=== PATIENT | female | born 1955 | race Caucasian/White ===

== ENCOUNTER 2017-11-13 13:14 | Inpatient (IN) | payer MEDICARE ==
[2017-11-13] MEDS ORDERED: Naloxone HCl 0.4 mg/ml Vial ONE (13:25)
[2017-11-13 14:45] LABS: #Eosinphils 0.1 thou/uL (0.0-0.7); #Lymphocytes 0.9 thou/uL (1.20-3.40); #Monocytes 0.7 thou/uL (0.11-0.59); #Neutrophils 17.5 thou/uL (1.40-6.50); %Basophils 0.2 % (0.0-1.0); %Eosinophils 0.5 % (0.0-10.0); %Lymphocytes 4.5 % (21.0-51.0); %Monocytes 3.7 % (0.0-10.0); Hematocrit 44.2 % (36.0-47.0); Mean Platelet Volume 7.9 fL (7.4-10.4); Red Blood Cell (RBC) Count 4.66 mill/uL (4.20-5.40); White Blood Cell (WBC) Count 19.2 thou/uL (4.8-10.8)
--- NOTE | 2017-11-13 14:50 | RAD ---
AP VIEW OF THE CHEST: INDICATION: Emergency exam. FINDINGS: The heart size is accentuated by the exam technique, with the patient being supine and an AP projecti on being taken. The lungs are clear. No pleural effusion or pneumothorax evident. No acute osseous abnormality is evident. IMPRESSION: No acute cardiopulmonary abnormality. POS: [facility]
[2017-11-13] MEDS ORDERED: Morphine 4 MG/ML VIAL ONE (14:56)
--- NOTE | 2017-11-13 15:02 | CT ---
CT HEAD WITHOUT CONTRAST: TECHNIQUE: Multiple axial tomograms were obtained through the head without IV enhancement. HISTORY: Mental status change. FINDINGS: Ventricles have normal size and position. No evidence of intracranial hemorrhage, mass, or infarct. Sinuses and mastoids are well aerated. IMPRESSION: No acute process. POS: [facility]
[2017-11-13 15:04] LABS: Lactic Acid - Sepsis 0.8 mmol/L (0.5-2.2)
--- NOTE | 2017-11-13 15:05 | CT ---
CT CERVICAL SPINE: TECHNIQUE: Multiple axial tomograms were obtained through the cervical spine with multiplanar reconstruction. HISTORY: Fall with injury to neck. FINDINGS: Cervical vertebrae maintain normal height and alignment. There are mild degenerative changes in the cervical spine. There is hypertrophic change at the left fact of C5-6. No evidence of acute fracture. IMPRESSION: No acute fracture identified. POS: [facility]
[2017-11-13 15:07] LABS: ALT (SGPT) 11 U/L (8-55); AST (SGOT) 19 U/L (5-34); Alkaline Phosphatase 138 U/L (40-150); Anion Gap 20 mmol/L (10-20); BUN (Urea Nitrogen) 43 mg/dL (9.8-20.1); Bilirubin, Total Less than 0.2 mg/dL (0.2-1.2); Calc. Creatinine Clearance 0 mL/min (70-130); Calcium 9.5 mg/dL (7.8-10.44); Carbon Dioxide 21 mmol/L (23-31); Chloride 103 mmol/L (98-107); Estimated GFR-MDRD 16; Globulin 3.1 g/dL (2.4-3.5); Protein, Total 7.1 g/dL (6.0-8.3)
--- NOTE | 2017-11-13 15:11 | RAD ---
LEFT TIBIA FIBULA: HISTORY: Injury to left tibia fibula. FINDINGS/IMPRESSION: Comminuted displaced fracture is seen involving the distal tibia and fibula diaphysis. POS: [facility]
--- NOTE | 2017-11-13 15:11 | RAD ---
LEFT KNEE: Four views. HISTORY: Fall with injury to left knee. FINDINGS/IMPRESSION: No fracture. No acute abnormality. POS: [facility]
[2017-11-13 15:13] LABS: Bilirubin Negative (Negative); Blood, Urine Trace (Negative); Glucose, Urine (Dipstick) Negative (Negative); Ketone, Urine Negative (Negative); Nitrite Negative (Negative); Protein, Urine (Dipstick) > or equal to 300 mg/dL (Neg-Trace); Urobilinogen 0.2 mg/dL (0.2-1.0)
[2017-11-13 15:18] LABS: Bacteria/HPF None Seen HPF (None Seen); Hyaline Casts/LPF 4-6 HYALINE CAST LPF (0-3 Hyaline); RBC/HPF 0-3 HPF (0-3)
[2017-11-13 15:31] LABS: Renal Epithelial None Seen HPF (0-3); Transitional Epithelial NONE SEEN HPF (0-3)
[2017-11-13] MEDS ORDERED: Labetalol HCl 100 MG/20 ML VIAL ONE (15:35)
[2017-11-13 15:43] LABS: Acetaminophen Less than 6.0 mcg/mL (10.0-30.0); Salicylate Less than 8.0 mg/dL (15.0-30.0)
[2017-11-13 15:45] LABS: Oxyhemoglobin 78.2 % (94.0-97.0); Sodium 140 mmol/L (135-148)
[2017-11-13 15:47] LABS: Mode RA; Modified Allen's Test NOT DONE; Vent NO
[2017-11-13 16:03] LABS: Amphetamine Not Detected (NotDetected); Methadone Not Detected (NotDetected); Methamphetamine Not Detected (NotDetected)
[2017-11-13] MEDS ORDERED: VANCOMYCIN IVPB PRN ×2 (16:56→17:06)
[2017-11-13] MEDS ORDERED: ACYCLOVIR SODIUM IVPB ONE (17:00)
[2017-11-13] MEDS ORDERED: SODIUM CHLORIDE 0.9% IVPB ONE (17:00)
[2017-11-13] MEDS ORDERED: cefTRIAXone\\ROCEPHIN 2 GM in Sodium Chloride 0.9% 100 ML IVPB ONE (17:00)
[2017-11-13 17:07] LABS: Troponin I 0.305 ng/mL (< 0.028)
[2017-11-13] MEDS ORDERED: Midazolam HCl 2 mg/2 ml Vial ONE (18:42)
[2017-11-13] MEDS ORDERED: Dextrose 50% Abboject 50 ML SYRINGE SLOW IVP PRN (18:48)
[2017-11-13] MEDS ORDERED: Dextrose 5% in Water 1,000 ML IV PRN (18:48)
[2017-11-13] MEDS ORDERED: Sedation Protocol FS ONE (18:49)
[2017-11-13] MEDS ORDERED: DISCONTINUE PREVIOUS NARCOTIC PAIN MEDICATIONS AND BENZODIAZEPINES FS SCH (18:52)
[2017-11-13] MEDS ORDERED: Fentanyl 20 MCG/ML 250 ML IVPB SCH (18:52)
--- NOTE | 2017-11-13 19:02 | HP ---
DATE OF ADMISSION: 11/13/2017 CHIEF COMPLAINT: Altered mental status, status post fall and fracture of the lower extremity. HISTORY OF PRESENT ILLNESS: The patient is a 62-year-old female who has been doing quite w ell until today when she was very confused and dazed. Her was not able to communicate with h er and he tried to help her to go to the bathroom because she was weak and she fell, her legs buckled and she fractured her tibia and fibula, so the EMS was called and she was brought to the emergency r o for further evaluation. At the time of evaluation, she was able to say her name and the age, but otherwise she was not really able to communicate more with the emergency room physician. She did no t have any fever at home as far as he knows and she did not have any chills as far as we know. She i s a kidney transplant patient. Her blood pressure in the emergency room was elevated at 229/96 and s he received labetalol 10 mg and it dropped to 139/76. 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 Julio and she goes to [facility] in [place]. Her previous creatinine level was around 1 and today is 3.0. PAST MEDICAL HISTORY: Positive for: 1. Previous end-stage renal disease. 2. Hypertension. 3. Hyperlipidemia. 4. Status post renal transplantation in 2005, on immunosuppressive therapy. 5. Coronary artery disease. PAST SURGICAL HISTORY: 1. Renal transplant in 2005. 2. Cholecystectomy. 3. Hysterectomy. ALLERGIES: LATEX and PHENERGAN. CURRENT MEDICATIONS: The list will be obtained as soon as we can from her . FAMILY HISTORY: Positive for heart disease. Father had Alzheimer's dementia. SOCIAL HISTORY: She smokes 1 pack of cigarettes per day. She does not use any alcohol or illicit dr ugs. REVIEW OF SYSTEMS: Unobtainable at this point since her condition is affected, but altered mental st atus. PHYSICAL EXAMINATION: GENERAL: She wears the BiPAP mask as we speak. Her pupils are normal size, approximately 3 mm, resp onding to light, similar bilaterally. She is very comatose, but she is arousable. When she is asked , she follows my simple commands. She is able to move her upper extremities and the right lower extr emity. She had the cast placed on the left lower extremity for her fractured tibia and fibula. NEUROLOGICAL: She is not able to stay awake. She falls asleep very quickly. LUNGS: Clear. HEART: S1, S2 normal. No S3, no S4. ABDOMEN: Soft, nondistended. Bowel sounds are present. EXTREMITIES: No clubbing, cyanosis. Edema present. As I mentioned above, there is a left lower ext remity cast in place. LABORATORY: Showed a white count of 19.2, hemoglobin 13.6, hematocrit 44.2, platelet count is 275,00 0, neutrophils 91%. ABGs showed pH of 7.18, pCO2 of 65.8, pO2 of 52.1, base excess is -5.0, carboxyh emoglobin 5.4. LABORATORY AND X-RAY FINDINGS: Sodium of 138, potassium 5.6, chloride 103, CO2 of 21, BUN 43, creati nine 3.02. The rest of chemistry within normal limits. Urine showed more than 300 of protein, trace of blood and 11-20 WBCs, hyaline casts 4-6. Toxicology screen detected benzodiazepines, detected op iates. The rest is negative. Alcohol less than 10. X-rays were done on cervical spine which did no t show any fracture on the left knee, no fracture, but left tibia and fibula and distal fracture. Th e CT of the brain was done did not show any acute abnormalities and chest x-ray was also done and it did not show any acute abnormalities. IMPRESSION: 1. Altered mental status in the setting of an immunocompromised patient. Rule out OR MANAGER infection wit h opportunistic pathogens like Cryptococcus and herpes simplex. The patient is going to have an LP d one and will check for those 2 opportunistic pathogens. We will do CSF culture and all the routine t esting. Also, we will start the patient on vancomycin, Rocephin, and acyclovir. 2. Renal failure on the top of chronic, not clear whether this is prerenal. Dr. Julio was contacted. He wants to use normal saline at 100 mL per hour and obtain ultrasound of the transplanted kidney. 3. Hyperkalemia. Again rail gang supervisor does not want to use any agents to lower potassium. He wants t o just use IV fluids. The patient received 1 liter of normal saline at the emergency room and she is going to get 100 mL per hour of normal saline after that. 4. Metabolic and respiratory acidosis, metabolic is caused most likely secondary to her renal failur e and respiratory acidosis is caused by probably CO2 retention since her ABG showed pCO2 at 65, that is secondary to chronic obstructive pulmonary disease. The patient is on BiPAP at this point. [facility] senior care provider was contacted, Dr. Caceres who is going to evaluate the patient and give us his lew mmendations. For now, her home medications are on hold and tomorrow we will start her on most crucia l ones for her immunocompromised status. For now we will keep her on hydrocortisone IV since she was taking prednisone at home. The patient is admitted to an ICU by Trauma team. This is supposed to b e a consultation and not admitting H and P. The patient will be on deep venous thrombosis prophylaxi s and peptic ulcer disease prophylaxis. Blood cultures and urine cultures were done. The case was d iscussed with Dr. Ritter for Infectious Diseases evaluation and he will give us his recommendation.
--- NOTE | 2017-11-13 19:31 | RAD ---
RADIOGRAPH CHEST 1 VIEW: Supine Date: 11/13/17 Time: 6:58 p.m. HISTORY: 62-year-old female status post intubation. FINDINGS: There is no air space density or pulmonary edema. The lateral costophrenic angles are sharp. Supine positioning makes this study insensitive for pneumothorax detection. Endotracheal tube distal tip ove rlies the mid thoracic trachea. NG tube courses inferior to the diaphragm, with distal tip and side p ort below and outside of the field of view. IMPRESSION: 1. No acute pulmonary findings. 2. Endotracheal tube placement. 3. Nasogastric tube placement. jeyson [] POS: [facility]
[2017-11-13 19:42] LABS: Oxyhemoglobin 95.9 % (94.0-97.0); Sodium 137 mmol/L (135-148)
[2017-11-13 19:44] LABS: Mechanical Tidal Volume 550 ml; Mode SIMV; Pressure Support 10 cmH2O; Vent YES
[2017-11-13 20:07] LABS: Troponin I 0.244 ng/mL (< 0.028)
[2017-11-13] MEDS: Sodium Chloride 0.9% 1,000 ML IV SCH (20:25)
--- NOTE | 2017-11-13 20:33 | CON ---
DATE OF CONSULTATION: 11/13/2017 CONSULTING PHYSICIAN: Yayo Abbasi M.D., Emergency Room. CHIEF COMPLAINT: Left lower extremity pain. HISTORY OF PRESENT ILLNESS: Ms. Park is a 62-year-old female who was brought in by EMS after a f all being transferred by her . Her states she has not been herself last couple of day s. The patient is currently in bed without any family members. She is somnolent, but arousable with sternal rub, not responding to any questions, only able to answer her name and that she lives in [facility], unable to get any other information. Rest of the history is from the chart review. PAST MEDICAL HISTORY: Includes: 1. Previous end-stage renal disease with history of renal transplant. 2. Hypertension. 3. Hyperlipidemia. 4. Coronary artery disease. PAST SURGICAL HISTORY: Includes cardiac catheterization, renal transplant, cholecystectomy, hysterec juan m, TIA, hypertension, restless leg syndrome, gastroesophageal reflux, COPD stable, history of panc reatitis, anemia. PAST SURGICAL HISTORY: Cardiac catheterization, renal transplant, cholecystectomy, hysterectomy. ALLERGIES: Per chart, ROMULO. MEDICATIONS: Please see administration list for details. SOCIAL HISTORY: Positive vapor cigarettes. No alcohol or drug use according to this previous chart review. REVIEW OF SYSTEMS: Unable to assess. PHYSICAL EXAMINATION: VITAL SIGNS: She is 89, respiratory rate 18, 97 degrees, 98% on 3 liters nasal cannula. GENERAL: Alert and oriented female x1. Arousable to sternal rub. The patient has some fasciculatio ns. EXTREMITIES: Bilateral lower extremities as well as bilateral upper extremities, unable to assess. She is currently in a seizure mode. Left lower extremity shows soft compartments. Splint is intact. No obvious open skin wounds are noted. The patient has 1+ DP and PT pulses. The patient has gross fasciculations. She has a negative Babinski's. LABORATORY AND X-RAY FINDINGS: White count of 19, H&H 13 and 44. She has platelets of 275. The pat ient's potassium is 5.6, creatinine of 3.02. Radiographs show left tibia shaft fracture, distal third with a comminuted distal fibula fracture wit h ankle mortise apparently intact. IMPRESSION: 1. Left distal tibia, left distal fibula fracture, comminuted, osteopenia. 2. End-stage renal disease, history of kidney transplant. 3. Coronary artery disease. 4. History of smoking in the past. 5. Chronic obstructive pulmonary disease. 6. Previous history of chronic anemia. 7. Previous history of pancreatitis. ASSESSMENT AND PLAN: The patient will need medical management and evaluation. The patient will maximino in n.p.o. after midnight. Plan would be for a tibia nail tomorrow after medical conditions are stabi lized. We plan to splint her and treat her likely on Wednesday. Trauma would admit, and await medical clearance for proceeding.
--- NOTE | 2017-11-13 21:04 | ULT ---
ULTRASOUND RETROPERITONEUM COMPLETE: (RENAL) DOPPLER/DUPLEX 11/13/17 HISTORY: 62-year-old female with renal failure. TECHNIQUE: Mosley scale, color flow, and spectral analysis. FINDINGS: No kidney is identified in the right upper quadrant. In the left upper quadrant, there is a small, il l-defined, faint 5 x 2.5 x 2.5 cm structure, which may or may not represent a severely atrophic or hy poplastic [place] left kidney. If it is the [place] left kidney, then its parenchyma is very abnormally thin. There is no hydronephrosis of this. In the pelvis, there is a transplanted kidney that measures approximately 12.5 x 6.5 x 5.5 cm. Its pa renchymal echogenicity is diffusely abnormally mildly increased. There is no dilation of the renal pe lvis. There are several teardrop shaped small hypoechoic structures which may represent mildly dilate d calyces or small cysts. The highest peak systolic velocity, and end diastolic velocity, in the left renal artery are 275 cm/s, and 20 cm/s, respectively. The resistive index in the transplanted right kidney is 0.93, very elevated. Furthermore, there is no diastolic flow in some of the pulsed doppler waveforms at the hilum of the kidney (high resistance waveform). IMPRESSION: Evidence for failure of the transplanted kidney. FATOU Green POS: [facility]
[2017-11-13] MEDS: Hydrocortisone Sod Succ/PF 100 mg/2 ml Vial IVP SCH (21:21)
[2017-11-13] MEDS: Lorazepam 2 MG/ML VIAL SLOW IVP PRN (21:50)
[2017-11-13 22:53] LABS: Troponin I 0.243 ng/mL (< 0.028)
[2017-11-14] MEDS: Propofol 1,000 MG/100 ML VIAL IV PRN ×4 (00:12→22:10)
[2017-11-14] MEDS ORDERED: Acetaminophen 650 MG/20.3 ML UDCUP PER TUBE PRN (00:49)
[2017-11-14] MEDS: Hydrocortisone Sod Succ/PF 100 mg/2 ml Vial IVP SCH ×5 (01:22→17:44)
[2017-11-14 04:20] LABS: Anion Gap 16 mmol/L (10-20); BUN (Urea Nitrogen) 44 mg/dL (9.8-20.1); Calc. Creatinine Clearance 26 mL/min (70-130); Calcium 8.5 mg/dL (7.8-10.44); Carbon Dioxide 17 mmol/L (23-31); Chloride 109 mmol/L (98-107); Estimated GFR-MDRD 17
[2017-11-14 05:12] LABS: #Lymphocytes 0.6 thou/uL (1.20-3.40); #Monocytes 0.9 thou/uL (0.11-0.59); #Neutrophils 13.6 thou/uL (1.40-6.50); %Eosinophils 0.2 % (0.0-10.0); %Lymphocytes 3.9 % (21.0-51.0); %Monocytes 5.9 % (0.0-10.0); Hematocrit 33.9 % (36.0-47.0); Mean Platelet Volume 8.5 fL (7.4-10.4); Red Blood Cell (RBC) Count 3.63 mill/uL (4.20-5.40); White Blood Cell (WBC) Count 15.1 thou/uL (4.8-10.8)
[2017-11-14] MEDS: Sodium Chloride 0.9% 1,000 ML IV SCH ×2 (05:25→14:24)
--- NOTE | 2017-11-14 06:47 | HP ---
DATE OF ADMISSION: 11/13/2017 ADMITTING PHYSICIAN: Dr. Omar Beltre. CONSULTING PHYSICIAN: Dr. Ritter, Infectious Disease; Dr. Julio, renal; Dr. Broderick, Sound; Dr. Karmen harrington, Pulmonology; Dr. Knutson, Orthopedics; Dr. Dunaway, Cardiology. PAST MEDICAL HISTORY: 1. Review of end-stage renal disease, status post kidney transplant. 2. Hypertension. 3. Hyperlipidemia. 4. Coronary artery disease. PAST SURGICAL HISTORY: 1. Cardiac catheterization. 2. Renal transplant. 3. Cholecystectomy. 4. Hysterectomy. SOCIAL HISTORY: Lives at home with . Tobaccos use 1 pack per day cigarettes. Denies alcohol use, denies drug use. ALLERGIES: LATEX, NATURAL RUBBER, and PROMETHAZINE. CURRENT MEDICATIONS: 1. Sodium bicarbonate 325 mg 4 tabs oral twice daily. 2. Alprazolam 1 mg oral 3 times daily as needed. 3. Fluoxetine 40 mg 1 tab oral once a day. 4. Gemfibrozil 600 mg oral 1 tab once a day. 5. Simvastatin 40 mg 1 tab oral once a day. 6. Gabapentin 600 mg 1 tab oral 3 times a day. 7. Prednisone 5 mg oral 1-1/2 tabs once a day. 8. Mycophenolate mofetil 500 mg 1 tab oral twice daily. 9. Bupropion 150 mg oral once a day. 10. Hydralazine 25 mg oral 1 tab 3 times a day as needed. 11. Acetaminophen 1000 mg oral q.6 hours as needed. 12. Amlodipine 5 mg oral at bedtime. 13. Aspirin 81 mg p.o. daily. 14. Diphenhydramine 25 mg p.o. q.4 hours as needed. 15. Folic acid 1 mg p.o. daily. 16. Ritalin 10 mg p.o. daily. 17. Metoclopramide 10 mg p.o. at bedtime as needed. 18. Pantoprazole 40 mg p.o. daily. 19. Paroxetine 20 mg p.o. daily. 20. Simvastatin 40 mg p.o. at bedtime. 21. Sodium bicarbonate 600 mg p.o. twice daily. 22. Prograf 1.5 mg/3 mg. 23. Tramadol 100 mg IV p.r.n. 24. Trazodone 100 mg p.o. at bedtime. HISTORY OF PRESENT ILLNESS: A 62-year-old female who presented to the ER via EMS today after a groun d level fall. reports that patient had altered mental status starting this morning and he wa s assisting her to the bathroom when she was having trouble walking down the bishop and her knees buckl ed. At that time, she fell to the ground. He heard a pop. He lowered her to the ground. She did n ot strike her head or have LOC. She had left leg deformity per EMS and it was splinted on scene. Chrystal pritchard arrived to the ED, A&O x2. It is unknown what medications she has taken today. Mental status cont inued to decline in the ED. She required BiPAP secondary to worsening respiratory status and respira tory acidosis. Kiser cultures were done as well as LP. She was given 0.4 mg of Narcan. She was hyper tensive to 221/96 requiring administration of IV labetalol, which brought her blood pressure down to 136/76. Left tib/fib fracture was identified and left lower extremity was placed in splint. Trauma was consulted for admission. Please see the above for complete list of consulting physicians. LABORATORY DATA: CBC: WBC 19.2, hemoglobin 13.6, hematocrit 44.2, platelet 275. Chemistry: Sodium 138, potassium 5.6, chloride 103, CO2 of 21, BUN 43, creatinine 3.02, glucose 97, troponin 0.305. A BG: pH 7.18, pCO2 65.8, pO2 of 52.1, bicarbonate 24.2, base excess negative 5.0. DIAGNOSTIC IMAGIN. Brain CT, no acute process. 2. Cervical spine CT, no acute fracture identified. 3. Chest x-ray, no acute cardiopulmonary abnormality. 4. Left tibia fibula x-ray, comminuted left tibia fibula fracture. PHYSICAL EXAMINATION: VITAL SIGNS: Blood pressure 182/93, pulse 74, respirations 18, temperature 97.7, O2 sat 100% on BiPA P. CONSTITUTIONAL: A 62-year-old female requiring BiPAP due to respiratory insufficiency. Altered ment al status. HEENT: Atraumatic, normocephalic. Trachea midline. NECK: No JVD. RESPIRATORY: Coarse breath sounds. Bilateral lung keene. Patient is requiring BiPAP to maintain a dequate oxygen saturation. CARDIOVASCULAR: Regular rate and rhythm. Heart sounds normal. ABDOMEN: Soft, nontender, nondistended. No masses. EXTREMITIES: Left lower extremity with splint in place. Cap refill brisk in all extremities. NEUROLOGIC: GCS 12, eyes 2, verbal 4, motor 6, states name only. Unable to answer any other questio ns. ASSESSMENT AND PLAN: 1. Respiratory failure requiring BiPAP. 2. Respiratory acidosis. 3. Left comminuted tib/fib fracture. 4. Hyperkalemia. 5. Elevated creatinine 3.02. 6. Elevated troponin 0.3. PLAN: 1. Admit to ICU. 2. Repeat cardiac enzymes x3. 3. 2D echocardiogram. 4. IV antibiotics for renal dosing. 5. Appreciate consulting services and recommendations. History and exam, assessment and plan were reviewed with Dr. Beltre.
--- NOTE | 2017-11-14 06:50 | CON ---
DATE OF CONSULTATION: 11/13/2017 HISTORY OF PRESENT ILLNESS: A 62-year-old obese female. History is obtained from talking to , who is here at the bedside, at length. She has been in the ER now for almost 4-5 hours. states that about 48 hours, she has been acting encephalopathic. This morning, she called her to help her go to the bathroom, but apparently she buckled down and fell and broke her right ankle. He called 911 and brought to the hospital. In the ER, I got a c all from trauma PA stating that she is going to be admitted to the ICU for multiple medical problems. She is clearly encephalopathic in the ER and told ER physician try to do lumbar puncture x2 unsuccess ful. Blood gases were done, which showed severe hypoxemia and mixed metabolic respiratory acidosis. According to the , patient smokes a pack a day and she had some febrile illness for the last 2 4 hours, but no chills or sweats. She says she has had a chronic cough, but no production of sputum. She has limitation to activity. PAST MEDICAL HISTORY: Pertinent for previous TIA-like symptoms. She was hospitalized in 11/2006, hi story of multiple urinary tract infections, restless leg syndrome, migraine, hypertension, reflux, ga stroparesis, previous [place], COPD, pancreatitis, colon polyps. PAST SURGICAL HISTORY: As well outlined and has included access renal transplant, ERCP, colonoscopy, hysterectomy, transplant at [facility] several years ago. SOCIAL HISTORY: She has apparently tobacco abuse. MEDICATIONS: List of medicines from home includes trazodone 100, tramadol, prednisone, Benadryl, Pro bren 3 capsule in the morning, 2.5 in the night time, bicarbonate, Zocor, Protonix, Paxil, and CellCe pt 500, Reglan, Ritalin, Lopid, Norvasc 5, Xanax. ALLERGIES: LATEX. PHYSICAL EXAMINATION: Upon arrival to the ICU, she was doing some nonspecific jerky movements bilate rally. She is clearly encephalopathic, it was felt she needed to be intubated right away. Bite bloc k was placed inside the endotracheal tube placed over the bronchoscope and intubated without any prob lems. Tube is about 4 cm above the everette. Both lungs were lavaged with normal saline. Initial vis ualization of the lungs are very clear, frothy secretions of post-intubation, there were some bloody secretions, but right upper and right middle lobe visualized without any endobronchial obstruction or any fresh bleeding was seen. The left lung was inspected thereafter once again, no fresh bleeding was seen. This area was lavaged with normal saline. Bronchial washing was sent for Gram stain and C&S. She was connected to warm c ycle respirator. PHYSICAL EXAMINATION: VITAL SIGNS: Sats 100%, pulse 80, blood pressure 153/80. CHEST: Reveals bilateral rhonchi. CARDIAC: Sinus tachycardia. ABDOMEN: Soft, without any masses. LABORATORY DATA: Initial chest x-ray was normal. X-ray post-intubation shows no acute infiltrates. White count 19,000, H&H 13 and 44, platelet count is 275. A pO2 was 52, pCO2 was 65, pH 7.18 in the ER apparently on room air. She was briefly on BiPAP. Creatinine 3, BUN 43. Sodium 130. Troponin was elevated at 0.3. TSH is normal. Urine shows wbc 11-20, opiates, benzos in the urine. Emergency CT of the head showed no acute process. Chest x-ray was normal. X-ray of the tibia and fi bula shows comminuted fracture involving the distal tibia and fibula. IMPRESSION: 1. Encephalopathy. 2. Presumed febrile illness. 3. Renal failure. 4. Immuno-compromised. 5. Respiratory failure with tobacco abuse. PLAN: Neurology has been consulted. In the meantime, she was started on steroids, acyclovir, vancom ycin. Started neb treatments. Resume home immunosuppressive medication. We will follow. Wean when stable. Prognosis remains guarded. Discussed with the . Please n ote it is one-hour critical care time exclusively intubation and bronchoscopy with lavage.
[2017-11-14 07:12] LABS: Oxyhemoglobin 96.1 % (94.0-97.0); Sodium 139 mmol/L (135-148)
[2017-11-14 07:15] LABS: Mechanical Tidal Volume 500 ml; Mode SIMV/PSV; Modified Allen's Test NOT DONE; Pressure Support 10 cmH2O; Vent YES
--- NOTE | 2017-11-14 08:58 | RAD ---
PORTABLE CHEST: HISTORY: Dyspnea. CCU followup. On ventilator. COMPARISON: 11/13/17. FINDINGS/IMPRESSION: ET tube, NG tube again noted. Lung keene remain clear. No acute finding or interval change noted. POS: [facility]
[2017-11-14] MEDS ORDERED: FLU VACC QS2017-18 36 mo. & older 0.5 ML SYRINGE IM ONE (09:00)
[2017-11-14] MEDS: Pantoprazole 40 MG VIAL IVP SCH (09:10)
[2017-11-14] MEDS: Mycophenolate 250 MG CAP PO SCH ×2 (11:17→20:05)
[2017-11-14] MEDS: Tacrolimus 1 MG CAP PO SCH ×2 (11:17→20:06)
--- NOTE | 2017-11-14 11:50 | RAD ---
PORTABLE CHEST: HISTORY: Central line placement. FINDINGS: ET tube is in place. A central line has been placed via the left jugular and tip overlies the SVC. NG tube is noted. Lungs remain clear of confluent infiltrate. IMPRESSION: Central line placement appears adequately positioned. POS: [facility]
--- NOTE | 2017-11-14 14:47 | OP ---
DATE OF PROCEDURE: 11/14/2017 PREOPERATIVE DIAGNOSES: Respiratory failure, sepsis, renal transplant status, poor IV access, tibial /fibular fracture. POSTOPERATIVE DIAGNOSES: Respiratory failure, sepsis, renal transplant status, poor IV access, tibia l/fibular fracture with occluded right internal jugular vein not visualized on ultrasound. PROCEDURE: Left internal jugular vein triple-lumen catheter. SURGEON: Dr. Beltre ANESTHESIA: Diprivan, on the ventilator, and 1% Xylocaine. PROCEDURE: At the patient's bedside, right and left sides of her neck were prepared with ChloraPrep, draped in routine fashion. Patient has had multiple hemodialysis catheters on both sides. Ultrasou nd evaluation of right internal jugular vein revealed it not to be present. Ultrasound evaluation of left internal jugular vein identified it and trocar catheter cannulated and J-wire threaded. Trocar catheter removed. Skin incised and enlarged sharply. Seldinger technique used to place triple-lume n catheter and secured with 3-0 silk suture and Biopatch applied. J-wire removed. Each port aspirat ed blood and flushed with saline solution. Patient tolerated the procedure well.
--- NOTE | 2017-11-14 14:54 | CON ---
DATE OF CONSULTATION: 11/14/2017 RENAL MEDICINE HISTORY OF PRESENT ILLNESS: Ms. Park is a 62-year-old white female with known history of renal t ransplantation, and admitted for confusion and resultant fall. She was diagnosed to have an injury o n the left tibia fibula -- she had a comminuted displaced fracture involving the distal tibia and fib kamaljit. We are being consulted for her acute kidney injury. The feeling is that the acute kidney injur y may have been related to her underlying prerenal azotemia. Empiric volume repletion with normal sa line has been started. Creatinine is down, it is slightly improved from 3.0 to a most recent value o f 2.75. We are currently continuing her immunosuppressive regimen. REVIEW OF SYSTEMS: Not obtainable since the patient is sedated, intubated and on ventilator support. MEDICATIONS: Tylenol 650 mg q.4, acyclovir 580 mg IV daily, ceftriaxone 2 grams IV daily, fentanyl d rip, hydrocortisone 25 mg IV q.6, Ativan 2 mg IV p.r.n., Mycophenolate 500 mg p.o. b.i.d., morphine s ulfate 2 mg IV q.2 p.r.n., Protonix 40 mg IV daily, normal saline 100 mL per hour, tacrolimus 3 mg p. o. q.a.m. and 1.5 mg at bedtime, vancomycin as directed. PAST MEDICAL HISTORY: Includes the followin. Status post ESRD. 2. Status post pancreatitis. 3. Restless legs syndrome. 4. Status post UTI. 5. Hyperlipidemia. 6. Migraine. 7. Hypertension. 8. GERD. 9. History of gastroparesis. 10. Status post non-Q-wave UT. 11. History of dysplastic colon polyps. 12. COPD. PAST SURGICAL HISTORY: 1. Status post AV fistula placement. 2. Status post cardiac cath. 3. Status post cuffed hemodialysis catheter placement. 4. Status post PD catheter placement. 5. Status post vaginal hysterectomy. 6. Status post surgery of the right kidney. 7. Status post colonoscopy. 8. Status post ERCP. 9. Status post cadaveric renal transplant at [facility]. 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 Status post multiple blood transfusions. No alcohol intake. FAMILY HISTORY: No family history of ESRD. ALLERGIES: LATEX and adverse reaction to PHENERGAN. TRAUMA: Recently status post fall with left tibia and fibula comminuted fracture. IMMUNIZATIONS: Up to date. HOSPITALIZATIONS: Please see past medical history. PHYSICAL EXAMINATION: VITAL SIGNS: Blood pressure is 147/60, heart rate 88, respiratory rate 20, temperature is 100, pulse ox 100%. GENERAL: Intubated, on ventilator support. HEENT: Pinkish conjunctivae, anicteric sclerae. NECK: No neck mass, no carotid bruits, no JVD. CHEST: No deformities. LUNGS: Decreased breath sounds. HEART: Normal sinus rhythm. No murmur, no gallops, no rubs. ABDOMEN: Globular, soft, nontender, no masses. EXTREMITIES: No edema. No deformities. NEUROLOGIC: The patient is sedated and intubated. LABORATORY DATA: Laboratories of 11/13/2017, urinalysis showed protein greater than 300, specific gr avity is 1.026, RBC 0-3, WBC 11-20. Positive for hyaline casts. Sodium 137, chloride 109, potassium 4.5, carbon dioxide 17, BUN 44, creatinine 2.75. GFR is 17 mL pe r minute, glucose 111. Further review of her serum creatinine shows the following, 11/13/2017, 3.02. ASSESSMENT AND PLAN: 1. Acute kidney injury -- most likely a superimposed prerenal azotemia. Urinalysis suggested a very concentrated urine. For this reason, I agree with normal saline 100 mL per hour. Please note, ther e is already an improvement in renal function with gentle volume repletion. 2. Status post cadaveric renal transplant. I would probably continue the current immunosuppression with this patient. No changes to be made. 3. Status post left tibia fibular fracture -- supportive care. 4. Mental status change -- concern whether she may have underlying sepsis or even UNIFORM ROOM ATTENDANT infection. Sh e is empirically being treated with IV acyclovir and IV antibiotics. For the moment, I agree with current management. There is no indication for any dialytic interventio n.
[2017-11-14 16:28] LABS: Vancomycin, Random 11.6 ug/mL (See Comment)
--- NOTE | 2017-11-14 16:31 | PRG ---
DATE OF SERVICE: 11/14/2017 SUBJECTIVE: She is intubated on the vent, sedated. Still pretty much encephalopathic, on Diprivan. She is having some jerking movements. OBJECTIVE: VITAL SIGNS: Blood pressure 163/76, sats are 97%, respirations 18. Maximum temperature has been 100 .5. CHEST: Decreased breath sounds, no wheezing. CARDIAC: Normal S1, S2. ABDOMEN: Soft. LABORATORY DATA: White count 15,000, H&H 10 and 33, platelet count 231, pO2 is 86, pCO2 25, pH 7.46, on a rate of 20, 500 tidal volume, and creatinine is 2.7. IMPRESSION: 1. Renal transplant, immunocompromised. 2. Fractured left femur. 3. Respiratory failure. 4. Encephalopathy. 5. Febrile illness. PLAN: Ceftriaxone and vancomycin as ordered per Infectious Disease, along with acyclovir. No spinal fluid was obtained. Need to restart patient's home medication. She is not weanable. Await input from Neurology. One-half hour critical care time.
--- NOTE | 2017-11-14 16:47 | PRG ---
DATE OF SERVICE: 11/14/2017 SUBJECTIVE: Norma Park is seen today from the Trauma Services. She is scheduled for ORIF of her tib-fib fracture today. Patient's problems are mostly medical. She remains in respiratory failu re and has had a spinal performed in the emergency room and has acute exacerbation of her chronic kid arturo disease, status post prior peritoneal dialysis, now status post renal transplant and has a right arm AC IV. OBJECTIVE: LUNGS: Clear to auscultation. CARDIAC: Regular rate and rhythm. ABDOMEN: Soft. EXTREMITIES: Splint to tib/fib fracture. CONSULTING PHYSICIANS: 1. Dr. Ritter, Infectious Disease. 2. Dr. Julio, Nephrology. 3. [facility] Hospitalist. 4. Dr. Caceres, Pulmonary Critical Care. 5. Dr. Knutson, Orthopedics. 6. Dr. Dunaway, Cardiology. PLAN: At this time, would be to avoid subclavian lines and antecubital IVs and remove antecubital IV . She is at risk for future dialysis access. We would preserve these veins for future fistulas and in this interest, we would avoid mid IV access, avoid PICC lines. If she needs long-term IV access, she should have a cuffed tunneled Nunes catheter and her IJ. At this point, we will place an IJ ce ntral line in her bedside to facilitate IV access this hospitalization. Trauma Services will then si gn off and I have talked to Dr. Broderick, [facility] Hospitalist and Hospitalist Service will soon lead physician care.
[2017-11-14] MEDS ORDERED: cefTRIAXone\\ROCEPHIN 2 GM in Sodium Chloride 0.9% 100 ML IVPB SCH (17:00)
--- NOTE | 2017-11-14 17:25 | CON ---
DATE OF CONSULTATION: 11/14/2017 REASON FOR CONSULTATION: Altered mental status, renal transplant. HISTORY OF PRESENT ILLNESS: A 62-year-old with history of coronary artery disease and end-stage kp l disease with prior renal transplant in 2005, living donor, was well until the day before admission, and on the day of admission, she felt unwell, a little bit confusional state noticed by , and then she went to the bathroom and fell. EMS was activated and brought to the emergency room. On ar rival, there was evidence of left tibia-fibula fracture which was comminuted. Had been no reported c hills. No fever. No headaches. No seizure activity. No respiratory symptoms or abdominal pain. I nitial findings in the emergency room, BP 229/96. She was on a BiPAP mask. She was arousable and fo llowed some simple commands. There was evidence of left tibia-fibula fracture which was externally f ixed with a splint. Initial labs with a white cell count 19,000, hemoglobin 13, platelets 275, predo minance of mature neutrophils. Blood gas; pH 7.18, pCO2 of 65, and pO2 of 52. Sodium 138, creatinin e is up to 3.02. Urinalysis with 11-20 wbc's. Toxicology with benzodiazepines and some opiates as w ell. Alcohol test was negative. CT of brain with no abnormalities. Chest x-ray with no abnormaliti es. The patient had CSF which showed 3 WBCs and 127 RBCs. This was tube #4. Protein and glucose ar e pending. Patient has been started on broad spectrum coverage with Rocephin, vancomycin, and acyclo vir. Cryptococcus antigen in CSF was negative. Currently, Ms. Park is intubated in the ICU. She woke up when I called her name and she establis hed eye contact and obviously able to understand the spoken word, follow commands perfectly, recogniz ed sister in the room with her. Denied any headaches. No chest symptoms. No abdominal pain. PAST MEDICAL HISTORY: End-stage renal disease of uncertain etiology, hypertension, coronary artery d isease, renal transplantation in 2005, living donor, on immunosuppressive therapy. PAST SURGICAL HISTORY: Also includes cholecystectomy, hysterectomy. ALLERGIES: LATEX and PHENERGAN. CURRENT MEDICATIONS: Acyclovir, albuterol, ceftriaxone, fentanyl, hydrocortisone, lorazepam, methylp henidate, pantoprazole, propofol, tacrolimus, and vancomycin. FAMILY HISTORY: Alzheimer's and coronary disease. SOCIAL HISTORY: Current smoker[place] In the home, she takes narcoti c analgesia and benzodiazepines. PHYSICAL EXAMINATION: VITAL SIGNS: T-max 101.7 on 11/14/2017 and she is now 99. BP 133/90, pulse 92, respirations 22, O2 saturation 100% with FiO2 of 40, PEEP of 5. SKIN: The patient has a triple lumen catheter in the left IJ location. Pinzon catheter in place and orogastric and orotracheal tube. Skin examination otherwise not remarkable. No lymphadenopathy. HEENT: Ocular movements are conjugate. Sclerae white. Pupils are equal. Still quite a few teeth i n place with significant decay. NECK: Supple. LUNGS: Symmetric clear breath sounds. HEART: S1 ad S2 regular rate. No murmurs. ABDOMEN: Soft. Not distended or tender. No ascites. No bladder distention or organomegaly. EXTREMITIES: No evidence of joint inflammatory activity. Pulses are 1+ in dorsalis pedis. Moves al l extremities on command. Plantar responses were flexor. No clonus. NEUROLOGIC: She is awake, follows commands, establishes eye contact. LABORATORY DATA: Sodium 137, creatinine down to 2.75, potassium 4.5. White cell count down to 15,00 0, hemoglobin 10.5, platelets 231, 89% neutrophils. The other findings in the CSF as noted above. T he two sets of blood cultures are negative thus far. Influenza A and B negative. Chest x-ray, clear lung keene noted. Brain CT with no acute process and a fracture noted in the left leg. Cervical s pine CT with no acute fracture. ASSESSMENT: 1. Renal transplant a few years ago, on immunosuppressive medication. 2. Prior end-stage renal disease of uncertain etiology. 3. Coronary artery disease. 4. Still actively smoking. 5. Chronic use of benzodiazepines and opioids. 6. Altered mental status with fall and fracture of left leg. 7. Neutrophilia. DISCUSSION: Differential diagnosis includes sedation/altered mental status associated with benzodiaz epines and opioid use in the home setting versus an intervening or intercurrent infectious process as sociated with immunosuppression with or without bacteremia. It does not appear that she has evidence to suggest central nervous system infection at this point in time and herpes simplex encephalitis is not likely. Bacterial meningitis has been effectively ruled out. Change Rocephin to 2 grams once d aily. Discontinue acyclovir. Follow up results of blood culture. Eventual extubation and then disc ussion with patient regarding the moment immediately to the development of the changes that led to he r admission. Fat embolism from the fracture is not likely. [facility] to the other labs submitted.
[2017-11-14] MEDS: cefTRIAXone\\ROCEPHIN 2 GM in Sodium Chloride 0.9% 100 ML IVPB SCH (17:43)
[2017-11-14] MEDS ORDERED: SODIUM CHLORIDE 0.9% IVPB SCH (18:00)
[2017-11-14] MEDS ORDERED: ACYCLOVIR SODIUM IVPB SCH (18:00)
--- NOTE | 2017-11-14 18:48 | PRG ---
DATE OF SERVICE: 11/14/2017 SUBJECTIVE: The patient is seen and examined at the bedside. She is in ICU bed 5. She is sedated a nd intubated. The patient was intubated last night after she was transferred from the emergency room . Her mental condition, she was becoming more comatose and decision was made about intubation. OBJECTIVE: VITAL SIGNS: Blood pressure is 163/76, pulse is 91, and pulse oximetry is 100%, respiratory rate is 20. She is on SIMV with tidal volume of 500, FIO2 40%, PEEP of 5 and pressure support of 10. Her te mperature was up to 101.7. LUNGS: She has some diminished breath sounds at both bases. No wheezing. No rales, no crackles. ABDOMEN: Nondistended. Bowel sounds are present. HEART: S1, S2 normal, no S3, no S4. EXTREMITIES: No clubbing, cyanosis or edema. NEUROLOGIC: Postponed since she is sedated. LABORATORY DATA: Showed a white count of 15.1, hemoglobin of 10.5, hematocrit 33.9, platelet count i s 231,000, 89.9% of neutrophils. ABG showed pH of 7.46, pCO2 25.7, pO2 86 and a base excess is -4.5, sodium 137, potassium 4.5, chloride 109, CO2 17, BUN 44, creatinine 2.75. Her additional 2 troponin s since yesterday came back at 0.244 and 0.243 and CK-MB was 5.9 and 5.7 respectively. Her thyroxine was 2.0. Her CSF showed colorless fluid. Clarity clear. WBCs less than 3, RBCs , and urine d rug screen was positive for opioids and benzodiazepines. Plasma alcohol was less than 10. Microbiol ogy, spinal fluid is negative for cryptococcal antigen. Spinal fluid culture, preliminary testing an d Gram stain showed epithelial cells, RBCs present, WBCs seen, no organisms seen. Respiratory cultur e showed no epithelial cells, many RBCs present, many gram positive cocci in pairs, chains and cluste rs and moderate gram negative diplococci, moderate gram negative rods and few WBCs seen. Urine cultu re is too early to identify. Blood cultures so far negative. Influenza type A and B are negative. Chest x-ray showed lungs are clear. ET tube in place and NG tube in place. No acute findings. IMPRESSION: 1. Encephalopathy in the setting of an immunocompromised patient. So far, a cryptococcal antigen is negative. There is not any evidence that there is some infection in central nervous system. Her te mperature is up. Blood cultures preliminary are negative. The patient is on Vancomycin and Rocephin along with acyclovir. 2. Renal failure on the top of chronic renal insufficiency with some improvement in her creatinine w ith IV fluids down to 2.75. Ultrasound of the kidney was done and it showed evidence for failure of the transplanted kidney. We will discuss the findings with Dr. Julio, her water quality assistant regarding ultra sound findings. 3. Hyperkalemia, improved with IV fluids. 4. Metabolic and respiratory acidosis, improved and now the patient is having respiratory alkalosis and metabolic acidosis secondary to renal failure. 5. Respiratory failure. The patient is intubated and on a ventilator and she is sedated. 6. Kidney transplant. Patient on immunocompromised agents. 7. Coronary artery disease, stable. 8. Hyperlipidemia. 9. Previous end-stage renal disease. 10. Hypertension. DISCUSSION: The patient is febrile. Her white count is somewhat better. There is no good evidence that there is some HARDWOOD FLOOR FINISHER infection. We will continue her coverage with antibiotics with ceftriaxone, v ancomycin, and acyclovir for now until we have more clear picture. The patient is restarted on her a gents on CellCept and tacrolimus. She is going to receive IV fluids and we will continue her hydroco rtisone, which was increased by chief sustainability officer to 50 mg of hydrocortisone q.6 hours. Also, her Ritali n will be continued and Protonix 40 mg IV push daily. Echocardiogram is pending.
[2017-11-14] MEDS: Tacrolimus 0.5 MG CAP PO SCH (20:05)
--- NOTE | 2017-11-14 20:58 | CON ---
DATE OF CONSULTATION: 11/14/2017 REFERRING PROVIDER: Jared Caceres M.D. REASON FOR CONSULTATION: Seizures. HISTORY OF PRESENT ILLNESS: Ms. Park is a pleasant 62-year-old female, who has been co nsulted for evaluation of seizures. History is obtained from the patient's sister who was present at bedside as well as patient's medical chart. The patient has a history of kidney transplant about 12 years ago. She has been doing well over the past few months and has been in normal state of health. On yesterday, she became very lethargic and weak all over. She was also having some confusion. Sh e had to call her to get her into the bathroom as she was not able to get up on her own. Whe n got there and got her up to go to the bathroom, she immediately collapsed and fell down. T his resulted in left tibia and femur fracture. EMS was called in. At that time, she was very lethar gic and obtunded. She was brought to the [facility] where the ER physician noted some twitching in her arms which concern for seizure and thus we are being asked to further evaluate for possible seizure. The patient's sister reports that she has no prior history of seizure disorder. 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 PAST MEDICAL HISTORY: Significant for previous end-stage renal disease, status post kidney transplan t, hypertension, hyperlipidemia, coronary artery disease. PAST SURGICAL HISTORY: Significant for renal transplant done in 2005, cholecystectomy and hysterecto my. CURRENT MEDICATIONS: Please review MAR. ALLERGIES: Include LATEX and PHENERGAN. FAMILY HISTORY: Significant for heart disease. SOCIAL HISTORY: She smokes 1 pack of cigarettes per day. She does not drink any alcohol or use illi cit drugs. She is . REVIEW OF SYSTEMS: Unable to perform. PHYSICAL EXAMINATION: VITAL SIGNS: Blood pressure of 145/55, pulse of 87, temperature of 99.0 with a T-max of 101.7, respi rations of 18 on mechanical ventilation. GENERAL: Intubated and sedated female. RESPIRATORY: Clear to auscultation bilaterally. CARDIOVASCULAR: Regular rate and rhythm. NEUROLOGIC: Mental status: The patient is intubated and sedated. I had asked the nurse to turn off the sedation for me to evaluate her exam off sedation. During that time, she was awake, alert, and purposefully fighting to get a ventilator tube out. Cranial nerves: Pupils are 3 mm and reactive. She is breathing over the ventilator machine. There is a positive cough and gag reflex present. Mot or exam showed increased tone in both upper extremities and right lower extremity. There is a spasti c catch noted in the both upper extremities as well as 2-3 beat clonus noted in the right lower extre mity. She is on cast in the left lower extremity. Her hand wood filler is 3/5 on both sides. Sensory: Sh e withdraws to pain on both upper extremities as well as right lower extremity. Deep tendon reflexes , brisk reflexes in both upper extremities and the right lower extremity. Arreola's sign is positive on both sides. Babinski plantar response is equivocal on the right side, unable to perform on the l eft side. LABORATORY DATA: Reviewed, which included CBC, urinalysis, CMP, troponin, CK-MB TSH, T4, urinalysis, and CSF WBC, RBC, which is significant for WBC of 15.1, hemoglobin 10.5, hematocrit of 33.9. BUN of 44, creatinine of 2.75 with a troponin of 0.243, T4 of 2.0. CSF WBC of 3, RBC of 127, glucose and p rotein are pending. Urine drug screen was positive for the benzodiazepines, otherwise negative. IMAGING STUDIES: CT head without contrast was reviewed which showed no acute intracranial abnormalit y. IMPRESSION: 1. Acute kidney injury. 2. Altered mental status, likely toxic metabolic encephalopathy. ASSESSMENT AND PLAN: Ms. Park is a 62-year-old female with history of kidney transplan t, presented with an acute kidney injury, with generalized weakness and fall resulting in left tibia and fibula fracture. She was noted to have some jerking type episode on arrival here. According to the nurse, she was lucid during that time. Based on the description, this may have been asterixis or myoclonic jerking that was witnessed by ER physician. At this time, I will hold off on starting any antiepileptic medication. I would recommend obtaining MRI brain without contrast and EEG on tomorro w morning. Continue current medical management.
[2017-11-14] MEDS ORDERED: Tacrolimus 0.5 MG CAP PO SCH (21:00)
[2017-11-14] MEDS ORDERED: Tacrolimus 1 MG CAP PO SCH (21:00)
[2017-11-14] MEDS: Lorazepam 2 MG/ML VIAL SLOW IVP PRN (22:09)
[2017-11-15] MEDS: Hydrocortisone Sod Succ/PF 100 mg/2 ml Vial IVP SCH ×5 (00:12→22:58)
[2017-11-15] MEDS: Propofol 1,000 MG/100 ML VIAL IV PRN ×4 (03:10→20:48)
[2017-11-15] MEDS: Sodium Chloride 0.9% 1,000 ML IV SCH ×3 (03:10→15:41)
[2017-11-15 05:09] LABS: #Lymphocytes 0.6 thou/uL (1.20-3.40); #Monocytes 0.6 thou/uL (0.11-0.59); #Neutrophils 12.3 thou/uL (1.40-6.50); %Eosinophils 0.2 % (0.0-10.0); %Lymphocytes 4.7 % (21.0-51.0); %Monocytes 4.5 % (0.0-10.0); Hematocrit 29.7 % (36.0-47.0); Mean Platelet Volume 8.1 fL (7.4-10.4); Red Blood Cell (RBC) Count 3.21 mill/uL (4.20-5.40); White Blood Cell (WBC) Count 13.6 thou/uL (4.8-10.8)
[2017-11-15 05:31] LABS: Anion Gap 15 mmol/L (10-20); BUN (Urea Nitrogen) 48 mg/dL (9.8-20.1); Calc. Creatinine Clearance 28 mL/min (70-130); Calcium 8.6 mg/dL (7.8-10.44); Carbon Dioxide 19 mmol/L (23-31); Chloride 110 mmol/L (98-107); Estimated GFR-MDRD 20
--- NOTE | 2017-11-15 06:16 | CON ---
DATE OF CONSULTATION: 11/14/2017 HISTORY OF PRESENT ILLNESS: Ms. Park is a 62-year-old female who was brought in with acute mental status changes. The patient is currently being followed by Dr. Caceres as well as at the Hospital Service. The patient has been consulted by Neurology as well as Infectious Disease. The patient has a low white count. She as per the 's reports some exposure to black mold. She had a trip and fall, breaking her left tibia. The patient is currently intubated in ICU for concern for controlled airway. The patient's family, and sister were at bedside today. Patient is afebrile. VITAL SIGNS: Stable, currently intubated in the ICU. GENERAL: GCS 3T, intubated and sedated. EXTREMITIES: The patient's left lower extremity shows a splint, clean, dry, and intact, soft compartments. Brisk cap refill in left lower extremity. IMPRESSION: Left tibia fracture, left fibula fracture, acute mental status changes, history of renal transplant with chronic kidney disease. ASSESSMENT AND PLAN: I discussed with Dr. Caceres the care of the patient, did not feel the patient should go to the OR today. Given the patient's injury and has minimal swelling, will just continue to watch her swelling in the department and plan for operative fixation in the morning after Neurology as well as ID is able to evaluate the patient. I discussed with the family the risks and benefits of intramedullary nailing of her left tibia fracture, I do not, even though she has comminution of the fibula, plan on fixating her fibula given the patient's limited functional status; she walks around typically, but does not do any cardiac activities. The patient will evaluate the fibula intraoperatively. Implant fixation is needed and the patient's family is aware our plan. We will just await clearance by Medicine as well as all the other services before proceeding. ROMÁN
[2017-11-15 07:17] LABS: Mechanical Tidal Volume 500 ml; Mode SIMV.PSV; Modified Allen's Test POSITIVE; Oxyhemoglobin 97.6 % (94.0-97.0); Pressure Support 10 cmH2O; Sodium 140 mmol/L (135-148); Vent YES
--- NOTE | 2017-11-15 07:44 | RAD ---
ONE VIEW CHEST: HISTORY: Ventilated patient. Respiratory distress. COMPARISON: 11/14/17. FINDINGS: Portable semiupright chest radiograph demonstrates an endotracheal tube, nasogastric tube, and a left -sided central venous catheter which are unchanged. Stable cardiac silhouette. Pulmonary vessels ar e within normal limits. Costophrenic angles are clear. No masses or consolidation. No pneumothorax or osseous abnormalities. IMPRESSION: No significant interval change. POS: PPP
--- NOTE | 2017-11-15 08:03 | PRG ---
DATE OF SERVICE: 11/15/2017 This morning, she is intubated on the vent. According to the nurses she was more responsive after be ing placed on the vent. PHYSICAL EXAMINATION: VITAL SIGNS: Blood pressure 160/70, pulse 83. I's and O's 2880 in, 1345 out. CHEST: Chest reveals decreased breath sounds, no wheezing. CARDIAC: Normal S1, S2. ABDOMEN: Soft, no masses. LABORATORY DATA: White count 13,000, H&H 9 and 29, platelet count of 214, pO2 is 134, pCO2 37.35, ra te of 10, creatinine 2.5, BUN is 48. IMPRESSION: 1. Encephalopathy. 2. Compromised renal function status post renal transplant. 3. Fractured right leg. PLAN: She is to go to surgery today. Otherwise, antibiotics as per Infectious Disease. Would like to wean and extubate tomorrow. One-half hour critical care time.
[2017-11-15] MEDS: Lorazepam 2 MG/ML VIAL SLOW IVP PRN (08:29)
[2017-11-15] MEDS ORDERED: Dexamethasone 20 MG/5 ML VIAL ONE (09:36)
[2017-11-15] MEDS ORDERED: Metoclopramide HCl 10 MG/2 ML VIAL ONE (09:36)
[2017-11-15] MEDS ORDERED: Ondansetron HCl/PF 4 MG/2 ML Vial ONE (09:36)
[2017-11-15] MEDS ORDERED: diphenhydrAMINE 50 MG/ML VIAL ONE (09:36)
[2017-11-15] MEDS: Pantoprazole 40 MG VIAL IVP SCH (10:06)
[2017-11-15] MEDS: Mycophenolate 250 MG CAP PO SCH ×2 (10:09→20:25)
[2017-11-15] MEDS: Tacrolimus 1 MG CAP PO SCH ×2 (10:09→20:42)
[2017-11-15] MEDS ORDERED: CEFAZOLIN/Water 2 GM/20 ML SYRINGE SLOW IVP SCH (11:00)
[2017-11-15] MEDS ORDERED: Fentanyl 100 MCG/2 ML VIAL ONE ×2 (11:53→14:07)
[2017-11-15] MEDS ORDERED: Midazolam HCl 5 mg/5 ml Vial ONE (11:53)
--- NOTE | 2017-11-15 13:15 | MRI ---
MRI BRAIN NONCONTRAST: HISTORY: A 62-year-old female with altered mental status. FINDINGS: The ventricles are normal in size and configuration. There is no restricted diffusion, midline shift or any other mass effect, recent intraaxial hemorrhage, or extraaxial fluid collection. There are a few scattered punctate T2-hyperintensities in the cerebral white matter consistent with mild chronic ischemic white matter changes due to mild microvascular atherosclerosis. There is fluid in the naso pharyngeal airway. There is fluid throughout most of the right mastoid air cells, and some of the le ft mastoid air cells. The right maxillary sinus is small in volume and is completely filled with mat erial that is moderately T2 and FLAIR hyperintense, and T1 isointense to brain parenchyma. IMPRESSION: 1. Mild chronic ischemic white matter changes. 2. No other abnormality of the brain identified. 3. Bilateral mastoid effusions, right greater than left. 4. Fluid in the nasopharynx. jeyson[] POS: [facility]
[2017-11-15] MEDS ORDERED: Rocuronium Bromide 50 MG/5 ML VIAL ONE (14:09)
[2017-11-15] MEDS: Morphine 4 MG/ML VIAL SLOW IVP PRN ×3 (15:33→22:34)
--- NOTE | 2017-11-15 15:50 | PDOC.PN ---
- Subjective Encounter Start Date: 11/15/17 Encounter Start Time: 15:49 Subjective: Seen and examined still intubated and sedated - Objective Resuscitation Status: Resuscitation Status FULL:Full Resuscitation Vital Signs & Weight: Vital Signs (12 hours) Temp Pulse Resp BP Pulse Ox 11/15/17 15:00 97.9 F 11/15/17 14:58 92 162/70 H 11/15/17 12:00 98 F 11 L 11/15/17 10:18 88 139/55 L 11/15/17 10:00 12 11/15/17 08:00 98.8 F 88 13 100 11/15/17 06:50 83 162/70 H 11/15/17 06:49 82 10 L 99 11/15/17 06:00 13 11/15/17 04:00 98.6 F 12 Weight Admit Weight 170 lb 6.677 oz Weight 170 lb 6.677 oz Most Recent Monitor Data Heart Rate from ECG 83 NIBP 185/84 NIBP BP-Mean 121 Respiration from ECG 14 SpO2 95 I&O: 11/14/17 11/15/17 11/16/17 06:59 06:59 06:59 Intake Total 1389 2880 Output Total 1440 1345 430 Balance -51 1535 -430 Result Diagrams: 11/15/17 04:40 11/15/17 04:40 Phys Exam - Physical Examination Constitutional: NAD intubated Neck: no nodes, no JVD, supple Respiratory: no wheezing, no rales vented sounds Cardiovascular: RRR, no significant murmur, no rub Gastrointestinal: soft, non-tender, no distention, positive bowel sounds Musculoskeletal: no edema, pulses present Dx/Plan (1) Respirator dependence Code(s): Z99.11 - DEPENDENCE ON RESPIRATOR [VENTILATOR] STATUS Status: Acute (2) FATMATA (acute kidney injury) Code(s): N17.9 - ACUTE KIDNEY FAILURE, UNSPECIFIED Status: Acute (3) Chronic renal allograft nephropathy Code(s): T86.11 - KIDNEY TRANSPLANT REJECTION Status: Acute (4) H/O kidney transplant Status: Chronic (5) Hypertension Code(s): I10 - ESSENTIAL (PRIMARY) HYPERTENSION Status: Chronic (6) Immunosuppressed status Code(s): D89.9 - DISORDER INVOLVING THE IMMUNE MECHANISM, UNSPECIFIED Status: Chronic - Plan continue antibiotics, PT/OT, social studies department chair, respiratory therapy Possible weaning off of vent by pulmonary in the next 24-48hrs -: Surgery following -: Continue ventilatory support for now * .
[2017-11-15 17:00] LABS: Vancomycin, Trough 7.4 ug/mL
[2017-11-15] MEDS ORDERED: Vancomycin HCl 750 MG in Sodium Chloride 0.9% 250 ML 250 ML IVPB SCH (17:00)
--- NOTE | 2017-11-15 17:21 | RAD ---
INTRAOPERATIVE FLUOROSCOPY LEFT LEG: Date: 11/15/17 HISTORY: Fracture. Internal fixation hardware. COMPARISON: None. FINDINGS: Five fluoroscopic views demonstrate an intramedullary aurora with two distal and a single proximal inter locking screw. Comminuted distal tibial fracture and a mildly displaced distal fibular fracture are d emonstrated. Exposure: 129.3 seconds. 3.54 mGy*cm^2. IMPRESSION: Fluoroscopy as above. Fluoroscopy provided for Dr. Knutson. POS: [facility]
[2017-11-15] MEDS ORDERED: Amlodipine 5 MG TAB PO SCH (17:45)
[2017-11-15] MEDS: cefTRIAXone\\ROCEPHIN 2 GM in Sodium Chloride 0.9% 100 ML IVPB SCH (18:41)
--- NOTE | 2017-11-15 19:21 | PRG ---
DATE OF SERVICE: 11/15/2017 SUBJECTIVE: Ms. Park is a 62-year-old white female who is status post renal transplant initially admitted for mental status change and has been seen by the orthopedic surgeon due to fracture of the left leg. She underwent intramedullary nailing of her left tibia with fixation of the fibula. We continue to follow this patient for a renal transplant as well as for her acute kidney injury. Her initial creatinine was noted at 3.02 and currently is at 2.5. She was given IV hydration. At the same time, immunosuppressive regimen is being continued. The mental status change is felt to be secondary to toxic metabolic encephalopathy. OBJECTIVE: VITAL SIGNS: Blood pressure is 185/84 with a heart rate of 83, respiratory rate 14, pulse ox 95%. GENERAL: Noted to be sedated, intubated on ventilator support. SKIN: Adequate turgor. HEENT: She has pinkish conjunctivae, anicteric sclerae. NECK: No neck mass, no carotid bruits, no JVD. CHEST: No deformities. LUNGS: Decreased breath sounds. HEART: Normal sinus rhythm. No murmur, no gallops, no rubs. ABDOMEN: Globular, soft, nontender, no masses. EXTREMITIES: No edema, no deformities. MEDICATIONS: 11/15/2017, was reviewed. LABORATORY DATA: 11/15/2017, white count 13.6, hemoglobin 9.5. Sodium 140, potassium 3.2, chloride 110, carbon dioxide 19, BUN 40, creatinine 2.5, GFR 20 mL per minute. Calcium 8.6. On 11/13/2017, ultrasound of the renal allograft shows parenchymal echogenicity is diffuse, mildly increased. There is no dilatation of the renal pelvis. Of interest, there is no diastolic flow in the hilum of the kidney disease. ASSESSMENT AND PLAN: 1. Acute kidney injury - secondary to presumptive diagnosis of hemodynamically- mediated renal dysfunction. IV volume repletion has been done in the last 2 days. Due to the possibility that she is gaining more fluid in her body, it was decided to decrease the IV fluid to 50 mL per minute. For the moment, continue current immunosuppressive regimen. There is no indication for any dialytic intervention. I will be discussing the case with the patient when she wakes up. Unclear what her baseline creatinine is prior to this admission. She follows up with her renal transplant program. As previously mentioned, continue current immunosuppressive regimen. Tacrolimus level is currently pending. 2. Status post leg fracture, status post intramedullary nail pinning. 3. Hypertension. Continue current blood pressure medications. MTDD
--- NOTE | 2017-11-15 19:47 | OP ---
DATE OF SERVICE: 11/15/2017 POSTOPERATIVE DIAGNOSES: 1. Left tibia fracture, comminuted. 2. Acute mental status changes, source unknown 3. History of renal transplant. PROCEDURE: 1. Intramedullary nailing left tibia 2. Nonoperative management of distal fibula fracture 3. Short leg splint STAFF: Stuart Knutson M.D. TORCH STRAIGHTENER AND HEATER: Toby Saldaña PA-C. ANESTHESIA: Dr. Whittington. The patient was intubated and brought from the ICU. ESTIMATED BLOOD LOSS: 100 mL. TOURNIQUET TIME: None. IMPLANTS: A Synthes 11 x 285 mm titanium cannulated tibial nail x3 5-0 locking screws. ANTIBIOTICS: Rocephin, vancomycin and Ancef preoperatively. COMPLICATIONS: None. HISTORY OF PRESENT ILLNESS: Ms. Park is a 62-year-old female now brought in for acute mental status changes and difficulty protecting the airway, was intubated on Wednesday night. The patient is being followed by Infectious Disease, Neurology Medicine, Pulmonology and Orthopedics. The patient has no source yet for her acute mental status changes. On MRI of her brain this morning was scheduled for left hip intramedullary nailing after clearance all the other above services. The patient's family, her was aware of the possible complications of surgery to include pain, scar, bleeding, infection, damage to vital structures, decreased range of motion or strength, nonunion, malunion, shortening, need for further surgeries, failure of hardware, loss of life or limb. The patient and family understood these risks and benefits and elected to proceed. PROCEDURE NOTE: Time out was performed designating the patient's left lower extremity as the operative site based on sight, consents, markings. At completion of timeout, the patient's left upper extremity was prepped and draped in sterile fashion. The patient had an anterior medial incision was made over the patellar tendon, few fibers of the tendon was taken, split down to expose starting point, placed starting point under AP and lateral radiographs , I was happy with the starting point. We placed opening reamer, reamed. We then used a pointed reduction clamp distally to help with our reduction, initially started with our ball-tip guidewire then placed, but then the tibial finger to help position better in the center-center position of the distal tibia. Being happy with the overall alignment of the tibial shaft as well as the distal tibia, we then holding reduction, we then reamed sequentially up to a 12.5, passed the 11 5 nail looked under radiographs and felt we had acceptable length comminution made a challenge exactly appreciate lengths, but on the lateral view, we felt we had got better approximate length. We placed a single screw in the dynamic screw proximally to help with compression of the fracture distally. We then placed 2 screws distally, 1 oblique hole and 1 in the transverse hole distally out of the fracture alignment to allow for compression through the fracture. I felt that we had held the reduction in the position. We would like to identify under percutaneous stab incisions under fluoroscopic guidance. We then stressed the ankle. The fibula was stable at syndesmosis, had comminution and filled the plate fixation would be improved with the overall outcome, therefore elected to be treated nonsurgically to allow for the tibia as well as some of the fibular shortened awhile for callus formation to occur. We then washed, closed with 0, 2-0, and 3-0 nylon. The patient was placed in a posterior short leg splint. The patient will be admitted back to the ICU. The patient will be touchdown weightbearing first 6-12 weeks. Patient's outlook is guarded given her current mental status changes as well as the patient's history of renal transplant for healing as well as the patient's comminuted tibia fracture so that we give her the best chance with a load sharing device for healing. The patient had poor bone quality as expected in previous and current chronic kidney disease. The patient will be followed by Medicine and continue vancomycin and Rocephin as per medicine treatment as well as the postoperative prophylaxis. ROMÁN
[2017-11-15] MEDS: Tacrolimus 0.5 MG CAP PO SCH (20:26)
--- NOTE | 2017-11-15 20:52 | CON ---
DATE OF CONSULTATION: 11/05/2017 HISTORY: Norma Park is a 62-year-old white female who had a fall at home and fractured her left ankle and is currently intubated. In 09/2005, she underwent cardiac catheterization by Dr. Camacho which revealed 5% to 10% proximal LAD plaque, otherwise unremarkable coronary arteries. Ejection fraction was 60%. As noted above, the patient is intubated and cannot provide any history. She does have end-stage renal disease and status post kidney transplant. She also has hypertension and hyperlipidemia. Apparently, she had been having increasing lethargy at home and her was helping her to the bathroom when she fell. She apparently did not have loss of consciousness. She had respiratory distress in the emergency room requiring BiPAP and had respiratory acidosis. She underwent del rio culturing. She ultimately required intubation. PAST MEDICAL HISTORY: Remarkable for end-stage renal disease, hypertension, hyperlipidemia, and minimal coronary artery disease as noted above. OPERATIONS: Renal transplant, cholecystectomy, hysterectomy. SOCIAL HISTORY: She continues to smoke one pack per day. MEDICATIONS: At home include Xanax 1 mg t.i.d. p.r.n., Norvasc 5 mg at bedtime , aspirin 81 daily, Wellbutrin 150 daily, Benadryl 25 mg q.4 hours p.r.n., folic acid 1 mg daily, Lopid 600 mg b.i.d., Ritalin 10 mg daily, metoclopramide 10 mg at bedtime as well as b.i.d., CellCept 500 mg b.i.d., Protonix 40 daily, Paxil 40 daily, prednisone 1.5 tablets q.a.m., simvastatin unknown dose at bedtime, Prograf, tramadol 100 mg q.i.d. p.r.n., trazodone 100 mg at bedtime. ALLERGIES: LATEX and PHENERGAN. REVIEW OF SYSTEMS: Unobtainable with the patient on the ventilator. PHYSICAL EXAMINATION: VITAL SIGNS: Blood pressure 185/84, pulse of 83. HEENT: PERRL. NECK: Supple. CHEST: Clear. CARDIAC: S1 and S2 are normal, without any S3, S4 or murmurs. ABDOMEN: Normal bowel sounds, without tenderness or organomegaly. EXTREMITIES: Revealed no edema. The left leg is wrapped and splinted. NEUROLOGIC: The patient is sedated. LABORATORY DATA: EKG reveals normal sinus rhythm with possible left atrial enlargement. Echocardiogram revealed ejection fraction of 65%-70%, evidence for diastolic dysfunction, mild left atrial enlargement, moderate mitral regurgitation, moderate aortic regurgitation and mild tricuspid regurgitation. Hemoglobin 9.5, hematocrit 29.7, white count 13,600, platelets 214,000. Sodium 137, potassium 4.5, chloride 109, carbon dioxide 17, BUN 44, creatinine 2.75. Troponin I was highest at the time of admission 0.305 with MB normal x2. IMPRESSION: Mildly elevated troponin I with normal MB. Probably represents demand ischemia. She did have a catheterization, although was 12 years ago which revealed only a 10% lesion in her LAD. At the present time, we would be very hesitant to further evaluate mildly elevated troponin I. PLAN: Consideration may need to be given to Cardiolite testing to further evaluate the possibility of severe coronary artery disease. I would be very hesitant to take her to the laboratory technical specialist with her renal insufficiency without more definitive evidence that she does have significant disease. ROMÁN
[2017-11-16] MEDS: Propofol 1,000 MG/100 ML VIAL IV PRN ×2 (01:22→04:58)
[2017-11-16] MEDS: Hydrocortisone Sod Succ/PF 100 mg/2 ml Vial IVP SCH ×3 (04:59→17:28)
[2017-11-16 05:05] LABS: ALT (SGPT) 7 U/L (8-55); AST (SGOT) 12 U/L (5-34); Alkaline Phosphatase 80 U/L (40-150); Anion Gap 14 mmol/L (10-20); BUN (Urea Nitrogen) 44 mg/dL (9.8-20.1); Bilirubin, Total Less than 0.2 mg/dL (0.2-1.2); Calc. Creatinine Clearance 33 mL/min (70-130); Calcium 8.7 mg/dL (7.8-10.44); Carbon Dioxide 18 mmol/L (23-31); Chloride 113 mmol/L (98-107); Estimated GFR-MDRD 23; Globulin 2.1 g/dL (2.4-3.5)
[2017-11-16 07:01] LABS: Oxyhemoglobin 97.3 % (94.0-97.0); Sodium 142 mmol/L (135-148)
[2017-11-16 07:03] LABS: Hematocrit 29.2 % (36.0-47.0); Red Blood Cell (RBC) Count 3.16 mill/uL (4.20-5.40); White Blood Cell (WBC) Count 15.7 thou/uL (4.8-10.8)
[2017-11-16 07:03] LABS: Mechanical Tidal Volume 500 ml; Mode SIMV; Modified Allen's Test POSITIVE; Pressure Support 10 cmH2O; Vent YES
[2017-11-16 07:04] LABS: Band 5 % (5-11); Neutrophil 87 % (42-75); Polychromasia SLIGHT = 2-3 cells (100X) (0-2/hpf)
[2017-11-16] MEDS: Labetalol HCl 100 MG/20 ML VIAL SLOW IVP PRN ×3 (07:07→17:36)
--- NOTE | 2017-11-16 07:58 | PRG ---
DATE OF SERVICE: 11/16/2017 This morning, she is intubated. She is sedated on Diprivan. This will be withheld. PHYSICAL EXAMINATION: VITAL SIGNS: Pulse 85, blood pressure is 130/80, sats 100%. I's and O's 3031 in, 114 out. CHEST: Chest reveals bilateral rhonchi. CARDIAC: Normal S1, S2. ABDOMEN: Soft, no masses. X-ray showed some nonspecific haziness on the left side, this is probably technique. White count 15, 000, H&H 9 and 29, platelet count 209, pO2 was 136, pCO2 37.37, creatinine 2.15. MRI was negative. EEG pending. Neurology does not feel the patient was seizing. Renal failure is s table at this stage. IMPRESSION: 1. Metabolic encephalopathy. 2. Fractured leg, status post surgery. 3. Respiratory failure. 4. Renal failure. 5. History of transplant. PLAN: Continue ceftriaxone, vancomycin. Acyclovir will be discontinued. We will hopefully wean and extubate today. Supportive care, nutrition, PT. One-half hour critical care time.
--- NOTE | 2017-11-16 08:09 | RAD ---
CHEST ONE VIEW: HISTORY: Dyspnea. Follow-up. COMPARISON: 11/15/2017. FINDINGS: Cardiac silhouette is magnified by projection and remains partially obscured by opacity throughout th e left lung and rightward rotation of the patient. Pulmonary vasculature is upper limits of normal. Lines and tubes appear unchanged in position. gutter installer leads overlie the chest. IMPRESSION: Stable radiographic appearance of the chest. POS: [facility]
[2017-11-16] MEDS ORDERED: Amlodipine 5 MG TAB PO SCH ×2 (09:00→21:00)
--- NOTE | 2017-11-16 09:20 | PRG ---
DATE OF SERVICE: 11/16/2017. SUBJECTIVE: Ms. Park is a 62-year-old white female status post renal transplant and admitted for mental status change. She was also noted to have a fracture of her left tibia - comminuted. She un derwent repair of the comminuted fracture with Dr. Knutson. Plate fixation was done with this fractu re. This morning, the patient was noted to be stable. She was extubated a few minutes ago. She is doing well. We are following this patient for acute kidney injury which is slowly improving with gentle volume re pletion. Please note we are also continuing her current immunosuppressive regimen. PHYSICAL EXAMINATION: GENERAL: Patient is sleepy, but arousable and comfortable. VITAL SIGNS: Blood pressure 188/87, heart rate 89, respiratory rate is 14, pulse ox 98%. HEENT: She has pinkish conjunctivae, anicteric sclerae. NECK: No neck mass, no carotid bruits, no JVD. CHEST: No deformities. LUNGS: Clear breath sounds, no wheezing, no crackles. HEART: Normal sinus rhythm. No murmur, no gallops or rubs. ABDOMEN: Globular, soft, nontender, no masses. EXTREMITIES: No edema. Left leg dressing noted. MEDICATIONS: 11/16/2017 - Reviewed. LABORATORY: 11/16/2017 - White count 15.7, hemoglobin 9.4, sodium 141, potassium 3.7, chloride 113, carbon dioxide 18, BUN 44, creatinine 2.15, GFR 23 mL per minute, glucose 97, AST is 12, ALT 7, album in 2.9. ASSESSMENT AND PLAN: 1. Status post cadaveric renal transplant, improving renal function. Continue immunosuppressive reg imen. 2. Acute kidney injury - a superimposed hemodynamically mediated renal dysfunction, slowly improving with gentle volume repletion. Please note the patient's creatinine peaked at 3.01 is now currently 2.15. Continue current management. Of note, the ultrasound of the renal allograft showed some incre ased echogenicity with the transplanted kidney. Please note that this patient also has history of pr oteinuria in the past. Management is essentially supportive. 4. Acute respiratory failure - patient is extubated. 5. Mental status change - related to toxic metabolic encephalopathy. No evidence of seizures - Neur ology is following. Please note that overall clinical prognosis remains guarded with this patient.
[2017-11-16] MEDS ORDERED: DC Sedation Protocol FS ONE (09:47)
[2017-11-16] MEDS: Mycophenolate 250 MG CAP PO SCH ×2 (10:00→19:54)
[2017-11-16] MEDS: Pantoprazole 40 MG VIAL IVP SCH (10:01)
[2017-11-16] MEDS: Tacrolimus 1 MG CAP PO SCH ×2 (10:05→19:55)
[2017-11-16] MEDS ORDERED: Acetaminophen 325 MG TAB PER TUBE PRN (11:30)
[2017-11-16] MEDS ORDERED: Morphine 4 MG/ML VIAL SLOW IVP PRN (11:37)
[2017-11-16] MEDS ORDERED: HYDROcodone/Acetaminophen 10/325 mg Tablet PO PRN (11:37)
[2017-11-16] MEDS: Fentanyl 100 MCG/2 ML VIAL SLOW IVP PRN ×3 (13:05→17:02)
[2017-11-16] MEDS: hydrALAZINE 20 MG/ML VIAL SLOW IVP PRN (14:03)
--- NOTE | 2017-11-16 14:42 | PDOC.PN ---
- Subjective Encounter Start Date: 11/16/17 Encounter Start Time: 14:38 pt extubated doing better c/o pain in leg no n/v no f/c - Objective Resuscitation Status: Resuscitation Status FULL:Full Resuscitation MAR Reviewed: Yes Vital Signs & Weight: Vital Signs (12 hours) Temp Pulse Resp BP Pulse Ox 11/16/17 14:03 83 11/16/17 13:35 98 11/16/17 13:34 83 18 98 11/16/17 12:20 90 218/73 H 11/16/17 12:00 97.7 F 88 11/16/17 09:59 88 189/87 H 11/16/17 08:38 98.6 F 88 21 H 100 11/16/17 08:00 98.6 F 86 11/16/17 07:07 108 H 201/91 H 11/16/17 06:44 89 188/87 H 11/16/17 06:00 91 14 161/67 H 11/16/17 04:00 98.2 F 92 14 137/58 L 11/16/17 03:15 98 Weight Admit Weight 170 lb 6.677 oz Weight 170 lb 6.677 oz Most Recent Monitor Data Heart Rate from ECG 87 NIBP 198/71 NIBP BP-Mean 165 Respiration from ECG 20 SpO2 100 I&O: 11/15/17 11/16/17 11/17/17 06:59 06:59 06:59 Intake Total 2880 3031 100 Output Total 1345 1140 610 Balance 1535 1891 -510 Result Diagrams: 11/16/17 03:33 11/16/17 03:33 Phys Exam - Physical Examination Constitutional: NAD HEENT: PERRLA Neck: no JVD Respiratory: no wheezing Cardiovascular: no significant murmur Gastrointestinal: soft, non-tender Musculoskeletal: pulses present lt leg in dressing Neurological: moves all 4 limbs Psychiatric: A&O x 3 Dx/Plan (1) Altered mental state Code(s): R41.82 - ALTERED MENTAL STATUS, UNSPECIFIED Status: Resolved Comment: f/u dr gonzales plan no e/o bact meningitis (2) Acute respiratory failure Code(s): J96.00 - ACUTE RESPIRATORY FAILURE, UNSP W HYPOXIA OR HYPERCAPNIA Status: Resolved Comment: extubated on 11/15 (3) Tibia fracture Code(s): S82.209 - UNSP FRACTURE OF SHAFT OF UNSP TIBIA, INIT FOR CLOS FX Status: Acute Comment: s/p surg on f/u ortho plan (4) Hypertensive urgency Code(s): I16.0 - HYPERTENSIVE URGENCY Status: Acute Comment: restart bp med continue prn meds (5) ARF (acute renal failure) Status: Acute Comment: f/u renal plan (6) CAD (coronary artery disease) Code(s): I25.10 - ATHSCL HEART DISEASE OF [place] CORONARY ARTERY W/O ANG PCTRS Status: Acute Comment: card rec's appreciated out pt work up with stress test (7) FATMATA (acute kidney injury) Code(s): N17.9 - ACUTE KIDNEY FAILURE, UNSPECIFIED Status: Acute Comment: improving f/u renal plan (8) H/O kidney transplant Status: Chronic Comment: f/u immunosuppresive meds f/u renal plan (9) Hypertension Code(s): I10 - ESSENTIAL (PRIMARY) HYPERTENSION Status: Chronic (10) Tobacco use Code(s): Z72.0 - TOBACCO USE Status: Chronic Comment: counselled (11) Mild protein-calorie malnutrition Code(s): E44.1 - MILD PROTEIN-CALORIE MALNUTRITION Status: Acute - Plan * cont current meds * f/u grounds keeper plan
[2017-11-16] MEDS: Sodium Chloride 0.9% 1,000 ML IV SCH (15:12)
--- NOTE | 2017-11-16 16:28 | PRG ---
DATE OF SERVICE: 11/16/2017 SUBJECTIVE: Ms. Park is a pleasant 62-year-old female who presented with the seizure-l madeline episode. She had left tibia fibula fracture for which she has undergone surgery. She has been e xtubated today and has been very confused, intermittently since being extubated. There has not been any seizure type activity noted. There has not been any focal neurological deficit noted as she has been moving around both upper and lower extremities spontaneously. PHYSICAL EXAMINATION: VITAL SIGNS: Blood pressure 185/65, pulse of 92, temperature of 97.7, respirations of 22, O2 sats of 100% on room air. GENERAL: Confused and disoriented female in no apparent distress. RESPIRATORY: Clear to auscultation bilaterally. CARDIOVASCULAR: Regular rate and rhythm. NEUROLOGICAL: Mental status: The patient is awake, but confused and disoriented. She does not foll ow any commands. She has a perseveration. Cranial nerves: Pupils are 3 mm and reactive. She blink s to threat on both sides. Face appears symmetric. Motor exam showed normal tone and bulk in both u pper extremities and right lower extremity. She is spontaneously moving both upper and lower extremi ties. LABORATORY DATA: Reviewed which included CBC, CMP, which is significant for WBC of 15.7, hemoglobin 9.4, hematocrit 29.2. BUN of 34, creatinine of 2.15. IMAGING STUDIES: MRI brain without contrast done yesterday was reviewed which showed no acute intrac ranial abnormality. IMPRESSION: Generalized tonic-clonic seizure. Ms. Park is a pleasant 62-year-old fema le, presented with generalized tonic clonic seizure. I have reviewed her EEG that was done earlier t which showed generalized slowing without any epileptiform discharges. There were intermittent t riphasic waves noted. This would be consistent with encephalopathic features. At this time, I will recommend continuing her on a close monitoring. I will hold off on antiepileptic medication for now. If she does have another episode of seizure then I will start her on Dilantin 100 mg t.i.d. Contin ue supportive care. We will sign off. Please call if there are any questions or concern. Thank you for your consultation.
[2017-11-16] MEDS: cefTRIAXone\\ROCEPHIN 2 GM in Sodium Chloride 0.9% 100 ML IVPB SCH (17:33)
[2017-11-16] MEDS: Amlodipine 5 MG TAB PO SCH (19:53)
[2017-11-16] MEDS: Metoprolol Tartrate 25 MG TAB PO SCH (19:54)
[2017-11-16] MEDS: Tacrolimus 0.5 MG CAP PO SCH (19:55)
[2017-11-16] MEDS: HYDROcodone/Acetaminophen 10/325 mg Tablet PO PRN (19:55)
[2017-11-16] MEDS ORDERED: ALPRAZolam 1 MG TAB PO SCH (21:30)
[2017-11-17] MEDS: Hydrocortisone Sod Succ/PF 100 mg/2 ml Vial IVP SCH ×2 (01:25→05:59)
[2017-11-17] MEDS: HYDROcodone/Acetaminophen 10/325 mg Tablet PO PRN ×7 (02:32→23:38)
[2017-11-17] MEDS: Sodium Chloride 0.9% 1,000 ML IV SCH (04:25)
[2017-11-17 04:37] LABS: #Basophils 0.1 thou/uL (0.0-0.2); #Eosinphils 0.1 thou/uL (0.0-0.7); #Lymphocytes 0.6 thou/uL (1.20-3.40); #Monocytes 1.3 thou/uL (0.11-0.59); #Neutrophils 16.2 thou/uL (1.40-6.50); %Basophils 0.5 % (0.0-1.0); %Eosinophils 0.3 % (0.0-10.0); %Lymphocytes 3.2 % (21.0-51.0); %Monocytes 6.9 % (0.0-10.0); Hematocrit 26.4 % (36.0-47.0); Mean Platelet Volume 7.7 fL (7.4-10.4); Red Blood Cell (RBC) Count 2.88 mill/uL (4.20-5.40); White Blood Cell (WBC) Count 18.2 thou/uL (4.8-10.8)
[2017-11-17 04:53] LABS: Anion Gap 15 mmol/L (10-20); BUN (Urea Nitrogen) 40 mg/dL (9.8-20.1); Calc. Creatinine Clearance 42 mL/min (70-130); Calcium 8.7 mg/dL (7.8-10.44); Carbon Dioxide 17 mmol/L (23-31); Chloride 114 mmol/L (98-107); Estimated GFR-MDRD 31
[2017-11-17] MEDS: ALPRAZolam 1 MG TAB PO PRN ×2 (06:00→12:26)
[2017-11-17] MEDS: Metoprolol Tartrate 25 MG TAB PO SCH ×2 (08:19→21:03)
[2017-11-17] MEDS: Tacrolimus 1 MG CAP PO SCH ×2 (08:19→21:03)
[2017-11-17] MEDS: Amlodipine 5 MG TAB PO SCH ×2 (08:19→21:03)
[2017-11-17] MEDS: Mycophenolate 250 MG CAP PO SCH ×2 (08:19→21:02)
[2017-11-17 09:02] LABS: CSF, Glucose 82 mg/dl (40-70)
--- NOTE | 2017-11-17 09:45 | PRG ---
DATE OF SERVICE: 11/17/2017 SERVICE: Renal Medicine. SUBJECTIVE: Ms. Park is a 62-year-old white female who was seen for mental status change and wit h concomitant leg fracture. We are seeing her for an acute kidney injury, which we felt was a hemody namically mediated renal dysfunction. With gentle volume repletion, renal function has improved. In addition, patient is being followed by Neurology due to the mental status change. This has improved over time. Patient has also undergone an operative procedure on 08/16/2017. She had an intramedullary nailing o f the left tibia and nonoperative management of her distal fibula. The patient voices no new complaints. No chest pain, shortness of breath. OBJECTIVE: VITAL SIGNS: Blood pressure is 185/67, heart rate 82, respiratory rate 20, pulse ox 100%. GENERAL: Noted to be sleepy, but arousable and comfortable. SKIN: Adequate turgor. HEENT: Slightly pale conjunctivae, anicteric sclerae. NECK: No neck mass, no carotid bruits, no JVD. CHEST: No deformities. LUNGS: Clear breath sounds. HEART: Normal sinus rhythm. No murmur, no gallops, no rubs. ABDOMEN: Globular, soft, nontender, no masses. Renal allograft is nontender. EXTREMITIES: No edema. Positive for left leg splint. MEDICATIONS: Of was reviewed. LABORATORY DATA: Of 11/17/2017 shows the following: Sodium 143, potassium 3.2, chloride 104, carbon dioxide 17, BUN 40, creatinine 1.69, glucose 86, calcium 8.7. White count 18.2, hemoglobin 9.1. Ta crolimus level is still currently pending. ASSESSMENT AND PLAN: 1. Acute kidney injury - hemodynamically mediated renal dysfunction. Improving with gentle volume r epletion. Continue current management. 2. Status post renal transplant - stable. We will continue current immunosuppressive regimen with t his patient. No changes will be made with her Prograf or CellCept. 3. Status post left leg fracture - Supportive care. Status post operative procedure. 4. Mental status change, metabolic encephalopathy, slowly improving. Urology following.
--- NOTE | 2017-11-17 11:57 | PRG ---
DATE OF SERVICE: 11/17/2017 This morning she is awake, responsive, still somewhat lethargic. PHYSICAL EXAMINATION: VITAL SIGNS: Temperature 97, blood pressure 155/80, pulse 87, respirations 21. I's & O's have been good, 2721 in, 2350 out. CHEST: Chest revealed decreased breath sounds, no wheezing. CARDIAC: Normal S1-S2. ABDOMEN: Soft. No masses. LABORATORY: White count 18,000, H&H 9 and 26, platelet count is normal. Creatinine 1.6. BUN 40. U rine has Enterococcus species. IMPRESSION: 1. Status post respiratory failure. 2. Metabolic encephalopathy. 3. Renal failure. 4. Status post transplant. 5. Fractured femur. PLAN: I will deescalate antibiotics once we have all the information back. Restart home prednisone. PT and supportive care. I will follow.
[2017-11-17] MEDS ORDERED: Potassium Chloride 20 MEQ TAB PO SCH (14:30)
--- NOTE | 2017-11-17 14:36 | PDOC.PN ---
- Subjective Encounter Start Date: 11/17/17 Encounter Start Time: 14:34 more alert no seizure no f/c no n/v - Objective Resuscitation Status: Resuscitation Status FULL:Full Resuscitation MAR Reviewed: Yes Vital Signs & Weight: Vital Signs (12 hours) Temp Pulse Resp BP Pulse Ox 11/17/17 13:59 78 19 99 11/17/17 12:00 98.2 F 81 20 167/59 H 11/17/17 08:19 82 185/67 H 11/17/17 08:00 97.5 F L 82 18 100 11/17/17 07:57 99 11/17/17 07:54 82 19 99 11/17/17 07:53 82 20 159/59 H 11/17/17 04:00 82 15 175/68 H Weight Admit Weight 170 lb 6.677 oz Weight 170 lb 6.677 oz Most Recent Monitor Data Heart Rate from ECG 77 NIBP 163/62 NIBP BP-Mean 80 Respiration from ECG 19 SpO2 100 I&O: 11/16/17 11/17/17 11/18/17 06:59 06:59 06:59 Intake Total 3031 2721 220 Output Total 1140 2350 520 Balance 1891 371 -300 Result Diagrams: 11/17/17 04:17 11/17/17 04:17 Phys Exam - Physical Examination Constitutional: NAD HEENT: PERRLA Neck: no JVD Respiratory: no wheezing Cardiovascular: no significant murmur Gastrointestinal: soft, non-tender Musculoskeletal: pulses present left leg in dressing Neurological: moves all 4 limbs Psychiatric: A&O x 3 Dx/Plan (1) Altered mental state Code(s): R41.82 - ALTERED MENTAL STATUS, UNSPECIFIED Status: Resolved Comment: f/u dr gonzales plan no e/o bact meningitis (2) Acute respiratory failure Code(s): J96.00 - ACUTE RESPIRATORY FAILURE, UNSP W HYPOXIA OR HYPERCAPNIA Status: Resolved Comment: extubated on 11/15 (3) Tibia fracture Code(s): S82.209A - UNSP FRACTURE OF SHAFT OF UNSP TIBIA, INIT FOR CLOS FX Status: Acute Comment: s/p surg on f/u ortho plan (4) Hypertensive urgency Code(s): I16.0 - HYPERTENSIVE URGENCY Status: Acute Comment: restart bp med continue prn meds (5) ARF (acute renal failure) Status: Acute Comment: f/u renal plan (6) CAD (coronary artery disease) Code(s): I25.10 - ATHSCL HEART DISEASE OF [place] CORONARY ARTERY W/O ANG PCTRS Status: Acute Comment: card rec's appreciated out pt work up with stress test (7) FATMATA (acute kidney injury) Code(s): N17.9 - ACUTE KIDNEY FAILURE, UNSPECIFIED Status: Acute Comment: improving f/u renal plan (8) H/O kidney transplant Status: Chronic Comment: f/u immunosuppresive meds f/u renal plan (9) Hypertension Code(s): I10 - ESSENTIAL (PRIMARY) HYPERTENSION Status: Chronic (10) Tobacco use Code(s): Z72.0 - TOBACCO USE Status: Chronic Comment: counselled (11) Mild protein-calorie malnutrition Code(s): E44.1 - MILD PROTEIN-CALORIE MALNUTRITION Status: Acute - Plan * f/u renal and ortho plan * monitor for seizures * continue current care * pt and ot
[2017-11-17 16:22] LABS: Vancomycin, Trough 8.9 ug/mL
[2017-11-17] MEDS: Labetalol HCl 100 MG/20 ML VIAL SLOW IVP PRN (16:54)
[2017-11-17] MEDS ORDERED: Vancomycin HCl 750 MG in Sodium Chloride 0.9% 250 ML 250 ML IVPB SCH (17:00)
[2017-11-17] MEDS: cefTRIAXone\\ROCEPHIN 2 GM in Sodium Chloride 0.9% 100 ML IVPB SCH (19:13)
[2017-11-17] MEDS: Tacrolimus 0.5 MG CAP PO SCH (21:04)
[2017-11-17 21:09] LABS: HSV 1 - DNA Negative (Negative)
[2017-11-17] MEDS: Fentanyl 100 MCG/2 ML VIAL SLOW IVP PRN (21:29)
[2017-11-17] MEDS: hydrALAZINE 20 MG/ML VIAL SLOW IVP PRN (23:33)
[2017-11-18] MEDS: Labetalol HCl 100 MG/20 ML VIAL SLOW IVP PRN (04:00)
[2017-11-18] MEDS: HYDROcodone/Acetaminophen 10/325 mg Tablet PO PRN ×4 (04:01→19:04)
[2017-11-18 04:35] LABS: #Eosinphils 0.2 thou/uL (0.0-0.7); #Lymphocytes 1.3 thou/uL (1.20-3.40); #Monocytes 1.5 thou/uL (0.11-0.59); %Basophils 0.1 % (0.0-1.0); %Eosinophils 1.4 % (0.0-10.0); %Lymphocytes 8.5 % (21.0-51.0); %Monocytes 10.1 % (0.0-10.0); Hematocrit 28.9 % (36.0-47.0); Red Blood Cell (RBC) Count 3.14 mill/uL (4.20-5.40); White Blood Cell (WBC) Count 15.1 thou/uL (4.8-10.8)
[2017-11-18 04:59] LABS: Anion Gap 11 mmol/L (10-20); BUN (Urea Nitrogen) 32 mg/dL (9.8-20.1); Calc. Creatinine Clearance 52 mL/min (70-130); Calcium 8.8 mg/dL (7.8-10.44); Carbon Dioxide 19 mmol/L (23-31); Chloride 115 mmol/L (98-107); Estimated GFR-MDRD 39
[2017-11-18] MEDS ORDERED: cloNIDine 0.1 MG TAB PO PRN (08:10)
[2017-11-18] MEDS ORDERED: Potassium Chloride 20 MEQ TAB PO SCH (08:15)
--- NOTE | 2017-11-18 09:25 | PRG ---
DATE OF SERVICE: 11/18/2017 SUBJECTIVE: Ms. Park is a 62-year-old white female who is status post cadaveric renal transplant , being seen by the Renal Service for her acute kidney injury. She was also admitted due to mentatio n changes and she was also diagnosed with a left leg comminuted fracture. She has undergone operatio n for this. Her mentation has slowly improved. Renal function is slowly improving with gentle volum e repletion. No new complaints today. Denies any chest pain or shortness of breath. PHYSICAL EXAMINATION: VITAL SIGNS: Blood pressure 168/78, heart rate 78, respiratory rate is 14, temperature 98.9, pulse o x 97%. GENERAL: Noted to be awake, supine, not in distress. SKIN: Adequate turgor. HEENT: She has slightly pale conjunctivae, anicteric sclerae. NECK: No neck mass. No carotid bruits, no JVD. CHEST: No deformities. LUNGS: Clear breath sounds. No wheezing, no crackles. HEART: Normal sinus rhythm. No murmur, no gallops or rubs. ABDOMEN: Globular, soft, nontender, no masses. EXTREMITIES: No edema, no deformities. Left leg positive for a wound dressing. MEDICATIONS: 11/18/2017 - Reviewed. LABORATORY: 11/18/2017 - White count 15.1, hemoglobin 9.4, sodium 142, potassium 3.1, chloride 115, carbon dioxide 19, BUN 32, creatinine 1.36, glucose 86, calcium 8.8. ASSESSMENT AND PLAN: 1. Acute kidney injury - hemodynamically mediated renal dysfunction with a significant improvement o f renal function. Most recent creatinine is 1.36. Please note she peaked at the value of 3.01. Con tinue current management. 2. Status post renal transplant, stable. Continue current immunosuppressive regimen. We have sent patient for tacrolimus level and it is still pending at the present time. For the moment, agree with current management. There is no indication for any dialytic intervention with this patient. 3. Mental status change - secondary to toxic metabolic encephalopathy. Neurology is following. No evidence of seizures. 4. Left comminuted leg fracture - status post intraoperative procedure. Overall, I agree with current management.
[2017-11-18] MEDS ORDERED: Ondansetron ODT 4 MG TAB PO PRN (10:14)
--- NOTE | 2017-11-18 10:20 | PRG ---
DATE OF SERVICE: 11/18/2017 This morning she is awake, alert, responsive, no longer encephalopathic. PHYSICAL EXAMINATION: VITAL SIGNS: Blood pressure 160/78, sats are 96%, respiratory rate 17, temperature 98. CHEST: Chest reveals decreased breath sounds without any wheezing. CARDIAC: Normal S1, S2. LABORATORY DATA: White count 15,000, H&H 8 is 9 and 28, platelet count normal. Creatinine 1.36. IMPRESSION: 1. Status post encephalopathy, improved. 2. Respiratory failure, resolved. 3. Azotemia. 4. Renal transplant. PLAN: Deescalate antibiotics. Supportive care and PT. I will follow.
[2017-11-18] MEDS ORDERED: Regadenoson 0.4 MG/5 ML SYRINGE ONE (11:13)
--- NOTE | 2017-11-18 13:58 | PDOC.PN ---
- Subjective Encounter Start Date: 11/18/17 Encounter Start Time: 13:56 Patient seen and examined. No new complaints. No overnight events - Objective Resuscitation Status: Resuscitation Status FULL:Full Resuscitation MAR Reviewed: Yes Vital Signs & Weight: Vital Signs (12 hours) Temp Pulse Resp BP BP Pulse Ox 11/18/17 08:00 98.9 F 78 14 168/78 H 97 11/18/17 07:32 80 16 11/18/17 05:04 98.1 F 78 22 H 196/77 H 97 11/18/17 04:00 78 196/77 H 11/18/17 03:39 96 Weight Admit Weight 170 lb 6.677 oz Weight 170 lb 6.677 oz Most Recent Monitor Data Heart Rate from ECG 85 NIBP 192/82 NIBP BP-Mean 156 Respiration from ECG 19 SpO2 100 I&O: 11/17/17 11/18/17 11/19/17 06:59 06:59 06:59 Intake Total 2721 2091 Output Total 2350 1855 Balance 371 236 Result Diagrams: 11/18/17 04:30 11/18/17 04:30 Phys Exam - Physical Examination Constitutional: NAD HEENT: PERRLA Neck: no nodes Respiratory: no wheezing, no rales Cardiovascular: no significant murmur Gastrointestinal: non-tender Musculoskeletal: pulses present lt leg in dressing Neurological: moves all 4 limbs Psychiatric: A&O x 3 Dx/Plan (1) Altered mental state Code(s): R41.82 - ALTERED MENTAL STATUS, UNSPECIFIED Status: Resolved Comment: f/u dr gonzales plan no e/o bact meningitis (2) Acute respiratory failure Code(s): J96.00 - ACUTE RESPIRATORY FAILURE, UNSP W HYPOXIA OR HYPERCAPNIA Status: Resolved Comment: extubated on 11/15 (3) Tibia fracture Code(s): S82.209A - UNSP FRACTURE OF SHAFT OF UNSP TIBIA, INIT FOR CLOS FX Status: Acute Comment: s/p surg on f/u ortho plan (4) Hypertensive urgency Code(s): I16.0 - HYPERTENSIVE URGENCY Status: Acute Comment: restart bp med continue prn meds (5) ARF (acute renal failure) Status: Acute Comment: f/u renal plan (6) CAD (coronary artery disease) Code(s): I25.10 - ATHSCL HEART DISEASE OF [place] CORONARY ARTERY W/O ANG PCTRS Status: Acute Comment: card rec's appreciated out pt work up with stress test (7) FATMATA (acute kidney injury) Code(s): N17.9 - ACUTE KIDNEY FAILURE, UNSPECIFIED Status: Acute Comment: improving f/u renal plan (8) H/O kidney transplant Status: Chronic Comment: f/u immunosuppresive meds f/u renal plan (9) Hypertension Code(s): I10 - ESSENTIAL (PRIMARY) HYPERTENSION Status: Chronic (10) Tobacco use Code(s): Z72.0 - TOBACCO USE Status: Chronic Comment: counselled (11) Mild protein-calorie malnutrition Code(s): E44.1 - MILD PROTEIN-CALORIE MALNUTRITION Status: Acute - Plan * f/u renal and card and ortho plan * cont current mx
[2017-11-18] MEDS: Tacrolimus 1 MG CAP PO SCH ×2 (14:55→20:36)
[2017-11-18] MEDS: Mycophenolate 250 MG CAP PO SCH ×2 (14:56→20:35)
[2017-11-18] MEDS: Metoprolol Tartrate 50 MG TAB PO SCH ×2 (14:56→20:35)
[2017-11-18] MEDS: predniSONE 5 MG TAB PO SCH (14:57)
[2017-11-18] MEDS: Amlodipine 5 MG TAB PO SCH ×2 (14:57→20:35)
--- NOTE | 2017-11-18 15:55 | NM ---
CARDIAC SPECT: HISTORY: A 62-year-old female with elevated troponins, coronary artery disease, end-stage renal disease, hyper tension, dyslipidemia, smoker. TECHNIQUE: A myocardial perfusion scan is performed using the single-isotope 1-day protocol with Technetium 99m sestamibi. Nine mCi were injected intravenously for the rest exam followed by 27 mCi for the stress study. Pharmacologic stress with LexiScan is monitored and interpreted by Dr. Bragg. FINDINGS: Homogeneous tracer distribution is seen in the myocardial segments on stress and rest images without fixed or reversible defects. GATED SPECT LVEF: 79%. WALL MOTION EXAM: Normal. IMPRESSION: Normal myocardial perfusion scan. POS: CANDELARIO
[2017-11-18] MEDS ORDERED: Communication Order-Pharmacy FS SCH (18:30)
[2017-11-18] MEDS: Sodium Chloride 0.9% 1,000 ML IV SCH (20:35)
[2017-11-18] MEDS: Amoxicillin/Potassium Clav 500 MG TAB PO SCH (20:35)
[2017-11-18] MEDS: Tacrolimus 0.5 MG CAP PO SCH (20:36)
[2017-11-19] MEDS: HYDROcodone/Acetaminophen 10/325 mg Tablet PO PRN ×3 (00:07→23:17)
[2017-11-19] MEDS: Fentanyl 100 MCG/2 ML VIAL SLOW IVP PRN ×4 (03:12→20:26)
[2017-11-19 04:58] LABS: Anion Gap 16 mmol/L (10-20); BUN (Urea Nitrogen) 26 mg/dL (9.8-20.1); Calc. Creatinine Clearance 65 mL/min (70-130); Calcium 8.6 mg/dL (7.8-10.44); Carbon Dioxide 15 mmol/L (23-31); Chloride 112 mmol/L (98-107); Estimated GFR-MDRD 51
[2017-11-19 06:00] LABS: Band 1 % (5-11); Hematocrit 29.3 % (36.0-47.0); Mean Platelet Volume 8.3 fL (7.4-10.4); Neutrophil 76 % (42-75); White Blood Cell (WBC) Count 15.3 thou/uL (4.8-10.8)
[2017-11-19] MEDS: Sodium Chloride 0.9% 1,000 ML IV SCH (08:04)
[2017-11-19] MEDS: predniSONE 5 MG TAB PO SCH ×2 (08:31→13:35)
[2017-11-19] MEDS: Amlodipine 5 MG TAB PO SCH ×3 (08:31→20:31)
[2017-11-19] MEDS: Amoxicillin/Potassium Clav 500 MG TAB PO SCH ×3 (08:32→20:32)
[2017-11-19] MEDS: Metoprolol Tartrate 50 MG TAB PO SCH ×3 (08:32→20:31)
[2017-11-19] MEDS: Tacrolimus 1 MG CAP PO SCH ×3 (08:32→20:30)
[2017-11-19] MEDS: Mycophenolate 250 MG CAP PO SCH ×3 (08:32→21:18)
--- NOTE | 2017-11-19 09:48 | PRG ---
DATE OF SERVICE: 11/19/2017 SUBJECTIVE: Ms. Park is a 62-year-old white female who was seen by the Renal Service for manage ment of her renal transplantation as well as for her acute kidney injury. She had a creatinine of 3. 01 at one time. She was gently volume repleted with significant improvement of her renal function. Currently, renal function is now within normal. She voices no new complaints. No chest pain or shor tness of breath. Please note this patient was admitted for confusion. She also had a left leg commi nuted fracture which she underwent an operative procedure. OBJECTIVE: VITAL SIGNS: Blood pressure is ranging from 177/85-190/65, heart rate 75, respiratory rate 20, tempe rature 98.2. GENERAL: Awake, alert, comfortable, not in distress. SKIN: Adequate turgor. HEENT: Pinkish conjunctivae, anicteric sclerae. NECK: No neck mass, no carotid bruits. No JVD. CHEST: No deformities. LUNGS: Clear breath sounds. No wheezing, no crackles. HEART: Normal sinus rhythm. No murmur, no gallops or rubs. ABDOMEN: Globular, soft, nontender. EXTREMITIES: No edema. Left leg brace. MEDICATIONS: 11/19/2017 - Reviewed. LABORATORY: 11/19/2017 - White count 15.3, hemoglobin 9.6. Sodium 140, potassium 3.2, chloride 112, carbon dioxide 15, BUN 26, creatinine 1.09, glucose 75, calcium 8.6. ASSESSMENT AND PLAN: 1. Metabolic acidosis. Start sodium bicarbonate 650 mg t.i.d. dosing. 2. Acute kidney injury - prerenal azotemia - much improved creatinine. Creatinine now is at baselin e at 1.09. 3. Status post left leg fracture - comminuted fracture - supportive care. Status post surgery. 4. Status post renal transplant. Continue current immunosuppressive regimen. We will be signing off. Please call if needed.
[2017-11-19] MEDS ORDERED: Potassium Chloride 20 MEQ TAB PO SCH (10:00)
[2017-11-19] MEDS ORDERED: Heparin 10,000 UNITS/1 ML VIAL ONE (11:52)
[2017-11-19] MEDS ORDERED: Midazolam HCl 2 mg/2 ml Vial ONE (11:55)
[2017-11-19] MEDS ORDERED: Bivalirudin 250 MG VIAL ONE (12:11)
[2017-11-19] MEDS ORDERED: Sodium Chloride 0.9% 1,000 ML IV SCH ×2 (12:45→16:22)
[2017-11-19] MEDS ORDERED: Fentanyl 100 MCG/2 ML VIAL ONE (12:53)
--- NOTE | 2017-11-19 14:01 | PDOC.PN ---
- Subjective Encounter Start Date: 11/19/17 Encounter Start Time: 13:58 going for cath today no n/v no f/c - Objective Resuscitation Status: Resuscitation Status FULL:Full Resuscitation MAR Reviewed: Yes Vital Signs & Weight: Vital Signs (12 hours) Temp Pulse Resp BP BP Pulse Ox 11/19/17 13:47 99 F 77 20 188/75 H 97 11/19/17 08:31 75 11/19/17 08:20 98.2 F 75 20 190/65 H 97 11/19/17 07:50 96.6 F L 75 20 172/76 H 97 11/19/17 07:14 97 11/19/17 07:12 74 16 97 11/19/17 05:04 97.7 F 71 18 177/85 H 99 11/19/17 02:45 95 Weight Admit Weight 170 lb 6.677 oz Weight 170 lb 6.677 oz Most Recent Monitor Data Heart Rate from ECG 85 NIBP 192/82 NIBP BP-Mean 156 Respiration from ECG 19 SpO2 100 I&O: 11/18/17 11/19/17 11/20/17 06:59 06:59 06:59 Intake Total 2090 1900 Output Total 1855 2350 Balance 236 -450 Result Diagrams: 11/19/17 03:45 11/19/17 03:45 Phys Exam - Physical Examination Constitutional: NAD HEENT: PERRLA Neck: no JVD Respiratory: no wheezing Cardiovascular: no significant murmur Gastrointestinal: soft Musculoskeletal: pulses present le leg in dressing Neurological: moves all 4 limbs Psychiatric: A&O x 3 Dx/Plan (1) Altered mental state Code(s): R41.82 - ALTERED MENTAL STATUS, UNSPECIFIED Status: Resolved Comment: f/u dr gonzales plan no e/o bact meningitis (2) Acute respiratory failure Code(s): J96.00 - ACUTE RESPIRATORY FAILURE, UNSP W HYPOXIA OR HYPERCAPNIA Status: Resolved Comment: extubated on 11/15 (3) Tibia fracture Code(s): S82.209A - UNSP FRACTURE OF SHAFT OF UNSP TIBIA, INIT FOR CLOS FX Status: Acute Comment: s/p surg on f/u ortho plan (4) Hypertensive urgency Code(s): I16.0 - HYPERTENSIVE URGENCY Status: Acute Comment: restart bp med continue prn meds (5) ARF (acute renal failure) Status: Acute Comment: f/u renal plan (6) CAD (coronary artery disease) Code(s): I25.10 - ATHSCL HEART DISEASE OF [place] CORONARY ARTERY W/O ANG PCTRS Status: Acute Comment: card rec's appreciated had card cath- 11/19 (7) FATMATA (acute kidney injury) Code(s): N17.9 - ACUTE KIDNEY FAILURE, UNSPECIFIED Status: Acute Comment: improving f/u renal plan (8) H/O kidney transplant Status: Chronic Comment: f/u immunosuppresive meds f/u renal plan (9) Hypertension Code(s): I10 - ESSENTIAL (PRIMARY) HYPERTENSION Status: Chronic (10) Tobacco use Code(s): Z72.0 - TOBACCO USE Status: Chronic Comment: counselled (11) Mild protein-calorie malnutrition Code(s): E44.1 - MILD PROTEIN-CALORIE MALNUTRITION Status: Acute - Plan * f/u cath results * f/u ortho plan * f/u dr gonzales plan
[2017-11-19] MEDS ORDERED: hydrALAZINE 20 MG/ML VIAL ONE (14:37)
[2017-11-19 14:40] LABS: Anion Gap 17 mmol/L (10-20); BUN (Urea Nitrogen) 23 mg/dL (9.8-20.1); Calc. Creatinine Clearance 69 mL/min (70-130); Calcium 8.4 mg/dL (7.8-10.44); Carbon Dioxide 14 mmol/L (23-31); Chloride 111 mmol/L (98-107); Estimated GFR-MDRD 54
[2017-11-19] MEDS ORDERED: Acetaminophen/Codeine 30-300mg Tablet PO PRN ×2 (16:22)
[2017-11-19] MEDS: Sodium Bicarbonate Tab 325 MG TAB PO SCH ×2 (16:22→20:31)
[2017-11-19] MEDS ORDERED: Sodium Chloride 0.9% 200 ML IV PRN (16:22)
[2017-11-19] MEDS ORDERED: traMADol HCl 50 MG TAB PO PRN (16:22)
[2017-11-19] MEDS ORDERED: Iopamidol 370 76% 100 ML VIAL ONE (16:27)
[2017-11-19] MEDS: Tacrolimus 0.5 MG CAP PO SCH (20:30)
[2017-11-19] MEDS: Atorvastatin Calcium 40 MG TAB PO SCH (20:31)
[2017-11-20] MEDS: HYDROcodone/Acetaminophen 10/325 mg Tablet PO PRN ×5 (04:10→22:10)
[2017-11-20 04:56] LABS: Anion Gap 15 mmol/L (10-20); BUN (Urea Nitrogen) 24 mg/dL (9.8-20.1); Calc. Creatinine Clearance 66 mL/min (70-130); Calcium 8.2 mg/dL (7.8-10.44); Carbon Dioxide 14 mmol/L (23-31); Chloride 112 mmol/L (98-107); Estimated GFR-MDRD 51
[2017-11-20 05:24] LABS: Hematocrit 28.4 % (36.0-47.0); Mean Platelet Volume 7.8 fL (7.4-10.4); Red Blood Cell (RBC) Count 3.11 mill/uL (4.20-5.40); White Blood Cell (WBC) Count 15.9 thou/uL (4.8-10.8)
[2017-11-20 05:28] LABS: Band 3 % (5-11); Neutrophil 84 % (42-75)
[2017-11-20] MEDS: Amoxicillin/Potassium Clav 500 MG TAB PO SCH ×2 (09:02→20:56)
[2017-11-20] MEDS: predniSONE 5 MG TAB PO SCH (09:02)
[2017-11-20] MEDS: Amlodipine 5 MG TAB PO SCH ×2 (09:02→20:55)
[2017-11-20] MEDS: Metoprolol Tartrate 50 MG TAB PO SCH ×2 (09:02→20:55)
[2017-11-20] MEDS: Sodium Bicarbonate Tab 325 MG TAB PO SCH ×3 (09:02→20:55)
[2017-11-20] MEDS: Mycophenolate 250 MG CAP PO SCH ×2 (10:26→20:54)
[2017-11-20] MEDS: Tacrolimus 1 MG CAP PO SCH ×2 (10:26→20:55)
--- NOTE | 2017-11-20 12:58 | PDOC.PN ---
- Subjective Encounter Start Date: 11/20/17 Encounter Start Time: 12:57 Patient seen and examined. No new complaints. No overnight events - Objective Resuscitation Status: Resuscitation Status FULL:Full Resuscitation MAR Reviewed: Yes Vital Signs & Weight: Vital Signs (12 hours) Temp Pulse Resp BP BP Pulse Ox 11/20/17 09:02 76 173/81 H 11/20/17 09:00 98 F 76 20 98 11/20/17 08:58 98 F 76 20 173/81 H 98 11/20/17 07:09 99 11/20/17 07:07 81 16 99 11/20/17 04:00 98.3 F 76 15 174/73 H 100 Weight Admit Weight 170 lb 6.677 oz Weight 171 lb 8.314 oz Most Recent Monitor Data Heart Rate from ECG 85 NIBP 192/82 NIBP BP-Mean 156 Respiration from ECG 19 SpO2 100 I&O: 11/19/17 11/20/17 11/21/17 06:59 06:59 06:59 Intake Total 1900 1974 Output Total 2350 1220 Balance -450 754 Result Diagrams: 11/20/17 04:15 11/20/17 04:15 Phys Exam - Physical Examination Constitutional: NAD HEENT: PERRLA Neck: no JVD Respiratory: no wheezing Cardiovascular: no significant murmur Gastrointestinal: non-tender Musculoskeletal: pulses present lt leg in dressing Neurological: moves all 4 limbs Psychiatric: A&O x 3 Dx/Plan (1) Altered mental state Code(s): R41.82 - ALTERED MENTAL STATUS, UNSPECIFIED Status: Resolved Comment: f/u dr gonzales plan no e/o bact meningitis (2) Acute respiratory failure Code(s): J96.00 - ACUTE RESPIRATORY FAILURE, UNSP W HYPOXIA OR HYPERCAPNIA Status: Resolved Comment: extubated on 11/15 (3) Tibia fracture Code(s): S82.209A - UNSP FRACTURE OF SHAFT OF UNSP TIBIA, INIT FOR CLOS FX Status: Acute Comment: s/p surg on f/u ortho plan (4) Hypertensive urgency Code(s): I16.0 - HYPERTENSIVE URGENCY Status: Acute Comment: restart bp med continue prn meds (5) ARF (acute renal failure) Status: Acute Comment: f/u renal plan (6) CAD (coronary artery disease) Code(s): I25.10 - ATHSCL HEART DISEASE OF [place] CORONARY ARTERY W/O ANG PCTRS Status: Acute Comment: card rec's appreciated had card cath- 11/19 (7) FATMATA (acute kidney injury) Code(s): N17.9 - ACUTE KIDNEY FAILURE, UNSPECIFIED Status: Acute Comment: improving f/u renal plan (8) H/O kidney transplant Status: Chronic Comment: f/u immunosuppresive meds f/u renal plan (9) Hypertension Code(s): I10 - ESSENTIAL (PRIMARY) HYPERTENSION Status: Chronic (10) Tobacco use Code(s): Z72.0 - TOBACCO USE Status: Chronic Comment: counselled (11) Mild protein-calorie malnutrition Code(s): E44.1 - MILD PROTEIN-CALORIE MALNUTRITION Status: Acute - Plan * s/p card cath- mild cad- med mx-f/u card plan\ * f/u ortho plan * pain mx * placement
[2017-11-20] MEDS ORDERED: Aspirin 81 mg Enteric Coated Tablet PO SCH (14:30)
[2017-11-20] MEDS ORDERED: Enoxaparin Sodium 30 MG/0.3 ML SYRINGE SC SCH (14:30)
--- NOTE | 2017-11-20 17:07 | PRG ---
DATE OF SERVICE: 11/20/2017 SUBJECTIVE: Norma Park is surprisingly in a good mood. OBJECTIVE: VITAL SIGNS: Her blood pressure is up and down; her highest today is 198/88. Heart rate is in 70s t o 80s. She is afebrile. Respiratory rate is in the teens. GENERAL: She is in no distress. LUNGS: Clear. HEART: Regular rhythm. ABDOMEN: Soft. LABORATORY DATA: White count 15.9, hemoglobin 9.2, platelets 284. Sodium 137, potassium 3.5, chloride 112, bicarbonate 14, anion gap is 11, BUN 24, creatinine 1.08. IMPRESSION: 1. Encephalopathy, resolved. 2. Respiratory failure, resolved. 3. Hyperchloremic acidosis. 4. History of renal transplantation. PLAN: Physical therapy and placement. She is tentatively scheduled to go to either a skilled unit o r rehabilitation bed she tells me.
[2017-11-20] MEDS: Tacrolimus 0.5 MG CAP PO SCH (20:54)
[2017-11-20] MEDS: Atorvastatin Calcium 40 MG TAB PO SCH (20:55)
[2017-11-20] MEDS: ALPRAZolam 1 MG TAB PO PRN (20:58)
[2017-11-21] MEDS: HYDROcodone/Acetaminophen 10/325 mg Tablet PO PRN ×4 (00:10→12:58)
[2017-11-21 05:59] LABS: #Eosinphils 0.3 thou/uL (0.0-0.7); #Lymphocytes 1.5 thou/uL (1.20-3.40); #Monocytes 1.2 thou/uL (0.11-0.59); #Neutrophils 11.7 thou/uL (1.40-6.50); %Eosinophils 2.2 % (0.0-10.0); %Monocytes 8.3 % (0.0-10.0); Hematocrit 26.3 % (36.0-47.0); Mean Platelet Volume 8.1 fL (7.4-10.4); White Blood Cell (WBC) Count 14.7 thou/uL (4.8-10.8)
[2017-11-21 06:21] LABS: Anion Gap 11 mmol/L (10-20); BUN (Urea Nitrogen) 22 mg/dL (9.8-20.1); Calc. Creatinine Clearance 63 mL/min (70-130); Calcium 8.3 mg/dL (7.8-10.44); Carbon Dioxide 19 mmol/L (23-31); Estimated GFR-MDRD 49
[2017-11-21 06:31] LABS: Chloride 112 mmol/L (98-107)
[2017-11-21] MEDS: predniSONE 5 MG TAB PO SCH (08:40)
[2017-11-21] MEDS: Amlodipine 5 MG TAB PO SCH (08:40)
[2017-11-21] MEDS: Sodium Bicarbonate Tab 325 MG TAB PO SCH ×2 (08:40→14:31)
[2017-11-21] MEDS: Metoprolol Tartrate 50 MG TAB PO SCH (08:41)
[2017-11-21] MEDS: Amoxicillin/Potassium Clav 500 MG TAB PO SCH (08:41)
[2017-11-21] MEDS ORDERED: Enoxaparin Sodium 30 MG/0.3 ML SYRINGE SC SCH (09:00)
[2017-11-21] MEDS ORDERED: Aspirin 81 mg Enteric Coated Tablet PO SCH (09:00)
[2017-11-21] MEDS: Tacrolimus 1 MG CAP PO SCH (09:12)
[2017-11-21] MEDS: ALPRAZolam 1 MG TAB PO PRN (09:13)
[2017-11-21] MEDS: Mycophenolate 250 MG CAP PO SCH (09:38)
[2017-11-21 10:34] VITALS: BMI 31.9
[2017-11-21 11:51] VITALS: TEMP 97.8
[2017-11-21] MEDS ORDERED: Potassium Chloride 20 MEQ TAB PO SCH (12:00)
--- NOTE | 2017-11-21 12:51 | PDOC.PN ---
- Subjective Encounter Start Date: 11/21/17 Encounter Start Time: 12:50 Patient seen and examined. No new complaints. No overnight events - Objective Resuscitation Status: Resuscitation Status FULL:Full Resuscitation MAR Reviewed: Yes Vital Signs & Weight: Vital Signs (12 hours) Temp Pulse Resp BP BP BP Pulse Ox 11/21/17 11:00 97.8 F 73 16 176/77 H 97 11/21/17 08:40 76 137/71 11/21/17 08:29 97.9 F 76 20 11/21/17 08:04 97 11/21/17 08:02 73 18 95 11/21/17 05:51 97.5 F L 70 20 148/68 H 96 11/21/17 02:52 97 Weight Admit Weight 170 lb 6.677 oz Weight 169 lb 1.513 oz Most Recent Monitor Data Heart Rate from ECG 85 NIBP 192/82 NIBP BP-Mean 156 Respiration from ECG 19 SpO2 100 I&O: 11/20/17 11/21/17 11/22/17 06:59 06:59 06:59 Intake Total 1974 1880 Output Total 1220 1320 Balance 754 560 Result Diagrams: 11/21/17 05:30 11/21/17 05:30 Phys Exam - Physical Examination Constitutional: NAD HEENT: PERRLA Neck: no JVD Respiratory: no wheezing Cardiovascular: no significant murmur Gastrointestinal: non-tender Musculoskeletal: pulses present lt knee in cast Psychiatric: A&O x 3 Dx/Plan (1) Altered mental state Code(s): R41.82 - ALTERED MENTAL STATUS, UNSPECIFIED Status: Resolved Comment: f/u dr gonzales plan no e/o bact meningitis (2) Acute respiratory failure Code(s): J96.00 - ACUTE RESPIRATORY FAILURE, UNSP W HYPOXIA OR HYPERCAPNIA Status: Resolved Comment: extubated on 11/15 (3) Tibia fracture Code(s): S82.209A - UNSP FRACTURE OF SHAFT OF UNSP TIBIA, INIT FOR CLOS FX Status: Acute Comment: s/p surg on f/u ortho plan (4) Hypertensive urgency Code(s): I16.0 - HYPERTENSIVE URGENCY Status: Acute Comment: restart bp med continue prn meds (5) ARF (acute renal failure) Status: Acute Comment: f/u renal plan (6) CAD (coronary artery disease) Code(s): I25.10 - ATHSCL HEART DISEASE OF [place] CORONARY ARTERY W/O ANG PCTRS Status: Acute Comment: card rec's appreciated had card cath- 11/19 (7) FATMATA (acute kidney injury) Code(s): N17.9 - ACUTE KIDNEY FAILURE, UNSPECIFIED Status: Acute Comment: improving f/u renal plan (8) H/O kidney transplant Status: Chronic Comment: f/u immunosuppresive meds f/u renal plan (9) Hypertension Code(s): I10 - ESSENTIAL (PRIMARY) HYPERTENSION Status: Chronic (10) Tobacco use Code(s): Z72.0 - TOBACCO USE Status: Chronic Comment: counselled (11) Mild protein-calorie malnutrition Code(s): E44.1 - MILD PROTEIN-CALORIE MALNUTRITION Status: Acute - Plan * doing good * d/c to rehab
[2017-11-21 13:18] VITALS: BP 157/71
--- NOTE | 2017-11-21 18:33 | PRG ---
DATE OF SERVICE: 11/21/2017 SUBJECTIVE: Ms. Park has no complaints. She is having her lower extremity redressed. It appear s that she has some oozing of blood through her dressing. PHYSICAL EXAMINATION: VITAL SIGNS: She is afebrile, heart rate 94, respiratory rate 18, blood pressure is 117/56, oximetry is 95% on 1 liter. LUNGS: Clear. HEART: Regular rhythm. PLAN: She is tentatively scheduled to go to rehabilitation. We will sign off.
--- NOTE | 2017-11-21 23:56 | DIS ---
DATE OF ADMISSION: 11/13/2017 DATE OF DISCHARGE: 11/21/2017 DISCHARGE DIAGNOSES: Altered mental state, resolved; encephalopathy, resolved; acute respiratory selina lure, status post extubation on 11/15; tibial fracture of the left side, status post surgery on 11/15 ; coronary artery disease, status post cath on 11/19, mild disease and to have medical management; hi story of renal transplant, on immunosuppressants, hypertension, stable; tobacco use, stable; protein- calorie malnutrition, stable. Studies done in this hospital stay was echocardiogram, which showed ejection fraction of 65%. Brain MRI did not show anything acute. EEG showed no seizure-like activity. CONSULTANTS ON THE CASE: Corporate Development Analyst, Renal doctor, Orthopedic doctor, and Cardiology. DISCHARGE MEDICATIONS: Patient's discharge medications are the same as admit medications plus Augmen tin 1 tablet p.o. b.i.d. for 4 more days, tramadol 50 mg p.o. q.6 h. p.r.n. for pain, Tylenol with co deine p.o. q.8 h. p.r.n. for pain, and metoprolol 50 mg p.o. b.i.d. in addition to the other home med ications. BRIEF HOSPITAL COURSE: A 62-year-old pleasant lady came into the hospital with altered mental state. Given history of fall and fracture of the left tibia, the patient was admitted to the hospital. Sh e was briefly intubated at this hospital stay, had a lumbar puncture to rule out bacterial meningitis . Dr. Ritter was consulted and a meningitis was ruled out. Patient did well with respect to respirat ory standpoint. She was extubated on the . Dr. Meyer evaluated her and possibly thought that it could have been a seizure-like activity, but wanted to monitor her in the hospital before starting he r on any seizure medication in order to document a valid seizure. EEG did not show any epileptiform waveforms. Brain MRI was negative. Patient underwent surgery for the left tibia on the . She a lso had cardiac cath on 11/19. Dr. Julio was consulted for the acute renal failure and management of t he kidney. She has unexposed renal transplant, on the immunosuppressive therapy. Patient improved w ith all standpoints. Acidosis improved. Respiratory failure improved. Right now, patient is doing well with physical therapy. Pain management is good. She has been accepted to rehabilitation. She is medically stable to be discharged to rehab with outpatient followup with Renal, Cardiology, Neurol ogy, and Ortho. She is asked to come back to the emergency room if this symptoms recur. Total time for this discharge took 35 minutes.
== END 2017-11-21 15:50 | DRG 492 ==
LOC: ERS 13:14 → CCU 18:38 → SURG B 11-17 16:46 → 2NO 11-19 17:41
PROVIDERS: ADMIT Internal Medicine; ATTEND Internal Medicine
PROC: 0B9M8ZX Drainage of Bilateral Lungs, Via Natural or Artificial Opening Endoscopic, Diagnostic (ICD-10-PCS; 2017-11-13)
PROC: 0BH18EZ Insertion of Endotracheal Airway into Trachea, Via Natural or Artificial Opening Endoscopic (ICD-10-PCS; 2017-11-13)
PROC: 5A1945Z Respiratory Ventilation, 24-96 Consecutive Hours (ICD-10-PCS; 2017-11-13)
PROC: 5A09357 Assistance with Respiratory Ventilation, Less than 24 Consecutive Hours, Continuous Positive Airway Pressure (ICD-10-PCS; 2017-11-13)
PROC: 009U3ZX Drainage of Spinal Canal, Percutaneous Approach, Diagnostic (ICD-10-PCS; 2017-11-13)
PROC: 02HV33Z Insertion of Infusion Device into Superior Vena Cava, Percutaneous Approach (ICD-10-PCS; 2017-11-14)
PROC: 0QSH06Z Reposition Left Tibia with Intramedullary Internal Fixation Device, Open Approach (ICD-10-PCS; principal; 2017-11-15)
PROC: 4A023N7 Measurement of Cardiac Sampling and Pressure, Left Heart, Percutaneous Approach (ICD-10-PCS; 2017-11-19)
PROC: B2111ZZ Fluoroscopy of Multiple Coronary Arteries using Low Osmolar Contrast (ICD-10-PCS; 2017-11-19)
DX: S82.252A Displaced comminuted fracture of shaft of left tibia, initial encounter for closed fracture (principal); G92 Toxic encephalopathy; J96.01 Acute respiratory failure with hypoxia; E87.3 Alkalosis; N17.9 Acute kidney failure, unspecified; E87.4 Mixed disorder of acid-base balance; E87.5 Hyperkalemia; I08.1 Rheumatic disorders of both mitral and tricuspid valves; E44.1 Mild protein-calorie malnutrition; M84.662A Pathological fracture in other disease, left tibia, initial encounter for fracture; Z94.0 Kidney transplant status; I24.8 Other forms of acute ischemic heart disease; J44.1 Chronic obstructive pulmonary disease with (acute) exacerbation; S82.452A Displaced comminuted fracture of shaft of left fibula, initial encounter for closed fracture; W18.30XA Fall on same level, unspecified, initial encounter; Y92.012 Bathroom of single-family (private) house as the place of occurrence of the external cause; I10 Essential (primary) hypertension; I25.10 Atherosclerotic heart disease of native coronary artery without angina pectoris; E78.5 Hyperlipidemia, unspecified; F17.210 Nicotine dependence, cigarettes, uncomplicated; Z88.8 Allergy status to other drugs, medicaments and biological substances; Z91.040 Latex allergy status; Z79.899 Other long term (current) drug therapy; G25.81 Restless legs syndrome; K21.9 Gastro-esophageal reflux disease without esophagitis; I25.2 Old myocardial infarction; M85.80 Other specified disorders of bone density and structure, unspecified site; I16.0 Hypertensive urgency; Z68.31 Body mass index [BMI] 31.0-31.9, adult
CPT/HCPCS: 29505; 36415; 36416; 51702; 62270; 70450; 70551; 71010; 72125; 76001; 76775; 78452; 80048; 80053; 80197; 80202; 80306; 80307; 81003; 81015; 82553; 82805; 82945; 83605; 84157; 84436; 84443; 84484; 85025; 85347; 87040; 87070; 87086; 87205; 87497; 87529; 87899; 89051; 90471; 90682; 90732; 93005; 93017; 93306; 93454; 93567; 93571; 93798; 94002; 94003; 94640; 94660; 94760; 95816; 95819; 96361; 96365; 96367; 96375; 99152; 99292; A9500; C1713; C1751; C1769; C1887; C9113; G0008; G0009; G0390; G8978-GP-CK; G8978-GP-CM; G8979-GP-CK; G8987-GO-CM; G8988-GO-CK; J0133; J0153; J0280; J0360; J0583; J0696; J1100; J1200; J1644; J1650; J1720; J2060; J2250; J2270; J2310; J2405; J2704; J2765; J2785; J3010; J3370; J7050; J7507; J7517; J7620; P9045; Q0162; Q2036

== ENCOUNTER 2017-11-25 10:18 | Observation (INO) | payer MEDICARE ==
[2017-11-25 11:14] LABS: #Eosinphils 0.1 thou/uL (0.0-0.7); #Lymphocytes 0.9 thou/uL (1.20-3.40); #Monocytes 1.7 thou/uL (0.11-0.59); #Neutrophils 11.2 thou/uL (1.40-6.50); %Eosinophils 0.8 % (0.0-10.0); %Lymphocytes 6.6 % (21.0-51.0); %Monocytes 12.1 % (0.0-10.0); %Neutrophils 80.5 % (42.0-75.0); Hemoglobin 9.2 g/dL (12.0-16.0); Mean Corpuscular HGB CONC 31.1 g/dL (32.0-36.0); Mean Corpuscular Hemoglobin 29.4 pg (27.0-31.0); Mean Corpuscular Volume 94.4 fl (81.0-99.0); Mean Platelet Volume 8.4 fL (7.4-10.4); Platelet Count 320 thou/uL (130-400); Red Blood Cell (RBC) Count 3.13 mill/uL (4.20-5.40)
--- NOTE | 2017-11-25 11:26 | RAD ---
PORTABLE CHEST ONE VIEW: Date: 11-25-17 Time: 10:54 a.m. History: Fall. Altered mental status. FINDINGS: The heart size is normal. No focal areas of consolidation, pneumothorax, or pleural effusions are see n. IMPRESSION: No radiographic evidence of acute cardiopulmonary process. POS: [facility]
[2017-11-25 11:28] LABS: ALT (SGPT) 14 U/L (8-55); AST (SGOT) 24 U/L (5-34); Albumin 3.1 g/dL (3.4-4.8); Alkaline Phosphatase 109 U/L (40-150); Anion Gap 14 mmol/L (10-20); BUN (Urea Nitrogen) 33 mg/dL (9.8-20.1); Bilirubin, Total 0.2 mg/dL (0.2-1.2); Calc. Creatinine Clearance 0 mL/min (70-130); Carbon Dioxide 21 mmol/L (23-31); Chloride 106 mmol/L (98-107); Estimated GFR-MDRD 21; Globulin 2.7 g/dL (2.4-3.5); Glucose 99 mg/dL (80-115); Potassium 4.5 mmol/L (3.5-5.1); Protein, Total 5.8 g/dL (6.0-8.3); Sodium 136 mmol/L (136-145)
[2017-11-25 11:33] LABS: CKMB 1.1 ng/mL (0-6.6); Troponin I 0.039 ng/mL (< 0.028)
--- NOTE | 2017-11-25 11:49 | CT ---
CT HEAD NONCONTRAST: History: Weakness. Altered mental status. Comparison: 11-13-17 FINDINGS: There is no evidence of acute intracranial hemorrhage or infarct. The ventricles appear normal in siz e, shape, and position. There is no mass effect or shift of midline structures. Visualized paranasal sinuses remain well aerated. IMPRESSION: No acute intracranial abnormalities are demonstrated on noncontrast CT head. POS: [facility]
[2017-11-25 12:04] LABS: Bilirubin Negative (Negative); Blood, Urine Trace (Negative); Clarity CLOUDY (Clear); Glucose, Urine (Dipstick) Negative (Negative); Leukocyte Negative (Negative); Nitrite Negative (Negative); Protein, Urine (Dipstick) > or equal to 300 mg/dL (Neg-Trace); Specific Gravity, Urine 1.023 (1.002-1.036); Urobilinogen 0.2 mg/dL (0.2-1.0); pH, Urine 5.5 (5.0-9.0)
[2017-11-25 12:06] LABS: Bacteria/HPF None Seen HPF (None Seen); Pathc Cast-AUWi Flag 2.16 (0-2.49); RBC/HPF 0-3 HPF (0-3)
[2017-11-25 12:18] LABS: Yeast-AUWi Flag 121.9 (0-25.0)
[2017-11-25 12:21] LABS: Yeast-All Forms 2+ HPF (None Seen)
[2017-11-25 12:22] LABS: Hyaline Casts/LPF NONE SEEN LPF (0-3 Hyaline); WBC/HPF 0-3 HPF (0-3)
[2017-11-25 12:23] LABS: Crystals/HPF 1+ AMORPH URATES HPF (Negative); Renal Epithelial None Seen HPF (0-3); Transitional Epithelial NONE SEEN HPF (0-3)
[2017-11-25 13:59] LABS: Troponin I 0.033 ng/mL (< 0.028)
[2017-11-25] MEDS ORDERED: Ondansetron HCl/PF 4 MG/2 ML Vial IVP PRN (14:10)
[2017-11-25] MEDS ORDERED: Sodium Chloride 0.9% 1,000 ML IV SCH (14:10)
[2017-11-25] MEDS ORDERED: Ondansetron ODT 4 MG TAB SL PRN (14:10)
[2017-11-25] MEDS ORDERED: Acetaminophen 325 MG TAB PO PRN (14:10)
[2017-11-25 14:23] VITALS: BMI 34.2
[2017-11-25] MEDS: Sodium Chloride 0.9% 1,000 ML IV SCH ×2 (14:30→22:14)
--- NOTE | 2017-11-25 15:21 | HP ---
PRIMARY CARE PROVIDER: Listed as Dr. Audi Donnelly. The patient referred to the [facility] this morning for altered mental status. HISTORY OF PRESENT ILLNESS: The patient woke up this morning, she said she felt weird. She states h er thought she was acting differently. She complained of profound weakness. She complained of no focal weakness, no swallowing difficulty. She said she had a mild headache. Stated that she h as chronic back pain and she has some neck pain with the present illness. PAST MEDICAL HISTORY: Extensive. She has previous end-stage renal disease, post renal transplant in 2005; hypertension; dyslipidemia; coronary artery disease; chronic pain. PAST SURGICAL HISTORY: Includes renal transplant, cardiac catheterization, cholecystectomy, and hyst erectomy. Recent ORIF of her left leg, post-traumatic fracture. ALLERGIES: No medication allergies. SOCIAL HISTORY: She has been in the [facility] post leg fracture for the past 4 days . Normally lives with her . CODE STATUS: FULL. Smokes vapor cigarettes daily. FAMILY HISTORY: Positive for heart disease. Father had Alzheimer's. CURRENT MEDICATIONS LIST: Trazodone 100 mg at bedtime, tramadol 50 mg p.o. q.6 hours for pain, predn isone 7.5 mg a day, Benadryl 25 mg p.o. q.4 hours p.r.n., Prograf 3 mg in the morning and 2.5 mg at n ight, sodium bicarbonate 650 mg twice a day, Zocor 40 mg a day, Protonix 40 mg a day, Paxil 40 mg a d ay, CellCept 500 mg twice a day, metoprolol 50 mg twice a day, Reglan 10 mg p.o. b.i.d. with meals an d at bedtime, Ritalin 10 mg a day, Mobic 15 mg a day, Lopid 600 mg twice a day, Wellbutrin 150 mg cornelius ly, atorvastatin 40 mg a day, aspirin 81 mg a day, Norvasc 5 mg a day, Tylenol #4 with Codeine t.i.d. p.r.n., Xanax 1 mg t.i.d. p.r.n. ALLERGIES: PROMETHAZINE. REVIEW OF SYSTEMS: GENERAL: No headaches, dizziness, fainting. EYES: No double vision, blurred vision, flashing lights. EARS, NOSE, AND THROAT: No ear pain or draining. No nasal bleeding. No trouble swallowing. CARDIAC: No chest pain, orthopnea, or paroxysmal nocturnal dyspnea. RESPIRATORY: No cough, wheezing, or asthma. GASTROINTESTINAL: No nausea, vomiting, diarrhea, constipation, or blood in her stools. GENITOURINARY: Stress incontinence, no hematuria or dysuria. MUSCULOSKELETAL: Chronic back pain, swelling in her legs. NEUROLOGIC: She states she had a TIA in the past. PSYCHIATRIC: She says she has much anxiety/depression. SKIN: Easy bruising, no rash. HEME/LYMPH: No tender or swollen lymph nodes in axilla, inguinal, or cervical area. PHYSICAL EXAMINATION: GENERAL: She is an alert and cooperative. VITAL SIGNS: Blood pressure readings 159/72, 116/76, 125/64; pulse 55-59; respirations 16-20, temper ature 98.7-99.1. She is on oxygen 97 at 3 liters. HEENT: Examination of her head, eyes, ears, nose, and throat reveal pupils equal, round, and reactiv e to light. Extraocular movements are intact. Sclerae white. Tympanic membranes clear. Nose clear . Oral mucous membranes are wet. NECK: Supple. She is able to flex her neck without any problems. She states her neck is sore to tu rning. Palpation of the muscles revealed no abnormality. She has no jugular venous distention, carly opathy, or thyromegaly. CHEST: Clear to auscultation and percussion. HEART: Regular rate and rhythm. First and second heart sounds are clear. There are mild 2/6 systol ic ejection murmur. ABDOMEN: Soft, bowel sounds are normal. There is no hepatosplenomegaly, no mass, no rebound. EXTREMITIES: Reveal 2+ edema, no cyanosis or clubbing. PULSES: Carotid, radial, femoral, and dorsalis pedis pulses palpable. SKIN: Warm and dry with ecchymoses on her arms and marked actinic changes and thinning. HEME/LYMPH: No tender or swollen lymph nodes in axilla, inguinal, or cervical area. NEUROLOGICAL: Cranial nerves II-XII are intact. Moves all extremities. Deep tendon reflexes symmet nereida in her arms. Her left leg is in a boot. X-RAY FINDINGS: Brain CT, reviewed by me, no acute intracranial abnormality. Chest x-ray: No cardi omegaly, CHF, or infiltrate, reviewed by me. EKG sinus bradycardia, sinus arrhythmia, low-voltage QR S. LABORATORY DATA: Hemoglobin 9.2, white count 14.0, platelet count 320,000. Creatinine 2.33, BUN 33, CO2 of 21, sodium 136, potassium 4.5, coronary troponin 0.039, troponin 0.33. ADMITTING DIAGNOSES: 1. Altered mental status in a person who is alert, oriented, and appropriate at this time. 2. Leukocytosis. I have reviewed her past CBCs. Her white count is now the lowest it has been. It has ranged as high as 18,000 on a previous admission, was elevated above 14.0 when discharged. 3. Acute kidney injury. Again, I have reviewed her old records. Her creatinine was in the 1 range on her last admission and is now 2.33. Whether this reflects true acute kidney injury or simple prer enal azotemia is difficult to tell. 4. Troponins elevated at 0.039 ad 0.033. The patient's troponins were higher than that on her last visit. She had a nuclear medicine stress test this month and it is normal. 5. History of renal transplant, immunosuppressive therapy. 6. Hypertension. 7. Coronary artery disease. 8. Dyslipidemia. 9. Chronic pain syndrome. 10. Anxiety/depression. PLAN: I have reviewed this patient in detail. She currently shows no evidence of infection. Her wh ite count is actually lower than it has been. The most worrisome finding is of course her creatinine being elevated. She will be given IV fluids and creatinine repeated tomorrow. Her cardiac enzymes are not troubling at all. This patient is on Wellbutrin, Ritalin, metoclopramide, Paxil, prednisone, Xanax, Tylenol #4, all of which can cause some problems with orientation, etc. At this point, I hav e drawn blood and urine cultures. I see no indication for starting antibiotics. We will repeat CBC and basic metabolic profile in the morning. We will monitor her at the time being.
[2017-11-25] MEDS ORDERED: Amlodipine 5 MG TAB PO SCH (22:45)
[2017-11-25] MEDS ORDERED: Sodium Bicarbonate Tab 325 MG TAB PO SCH (22:45)
[2017-11-25] MEDS ORDERED: Tacrolimus 0.5 MG CAP PO SCH (22:45)
[2017-11-25] MEDS ORDERED: traZODone HCl 50 MG TAB PO SCH (22:45)
[2017-11-25] MEDS ORDERED: Mycophenolate 250 MG CAP PO SCH (22:45)
[2017-11-26 05:20] LABS: #Eosinphils 0.1 thou/uL (0.0-0.7); #Lymphocytes 1.4 thou/uL (1.20-3.40); #Monocytes 1.1 thou/uL (0.11-0.59); #Neutrophils 6.5 thou/uL (1.40-6.50); %Basophils 0.4 % (0.0-1.0); %Eosinophils 1.3 % (0.0-10.0); %Monocytes 12.3 % (0.0-10.0); Hemoglobin 8.9 g/dL (12.0-16.0); Mean Corpuscular Hemoglobin 29.6 pg (27.0-31.0); Mean Corpuscular Volume 95.6 fl (81.0-99.0); Mean Platelet Volume 8.4 fL (7.4-10.4); Platelet Count 292 thou/uL (130-400); Red Blood Cell (RBC) Count 2.99 mill/uL (4.20-5.40); White Blood Cell (WBC) Count 9.2 thou/uL (4.8-10.8)
[2017-11-26] MEDS: Acetaminophen 325 MG TAB PO PRN ×3 (05:36→16:48)
[2017-11-26 05:51] LABS: Anion Gap 13 mmol/L (10-20); BUN (Urea Nitrogen) 34 mg/dL (9.8-20.1); Calc. Creatinine Clearance 36 mL/min (70-130); Calcium 8.5 mg/dL (7.8-10.44); Carbon Dioxide 16 mmol/L (23-31); Chloride 113 mmol/L (98-107); Estimated GFR-MDRD 23; Glucose 89 mg/dL (80-115); Potassium 4.4 mmol/L (3.5-5.1); Sodium 138 mmol/L (136-145)
[2017-11-26] MEDS: Sodium Chloride 0.9% 1,000 ML IV SCH ×3 (06:20→19:39)
[2017-11-26] MEDS ORDERED: FLU VACC QS2017-18 36 mo. & older 0.5 ML SYRINGE IM ONE (09:00)
[2017-11-26] MEDS: Mycophenolate 250 MG CAP PO SCH ×2 (09:25→21:04)
[2017-11-26] MEDS: Tacrolimus 0.5 MG CAP PO SCH ×2 (09:25→21:03)
[2017-11-26] MEDS ORDERED: Sodium Chloride 0.9% 1,000 ML IV SCH (10:15)
--- NOTE | 2017-11-26 11:43 | PRG ---
DATE OF SERVICE: 11/26/2017 SUBJECTIVE: Ms. Park is a 62-year-old white female status post cadaveric transplant readmitted f or confusion. I reviewed the records and the patient is more coherent. My feeling is that the confu tucker was related to her pain medications. We are being consulted for her acute kidney injury. Furth er review of her medications at rehab suggests she was taking meloxicam. We have discontinued the me loxicam. The patient is currently undergoing IV hydration. The patient is here with her and I discussed the case with her at length. OBJECTIVE: VITAL SIGNS: Blood pressure is 170/73, heart rate 62, respiratory rate 20, temperature 97.6, pulse o x 96%. GENERAL: The patient is awake, alert, supine, comfortable, not in distress. SKIN: Adequate turgor. HEENT: Slightly pale conjunctivae, anicteric sclerae. NECK: No neck mass, no carotid bruits, no JVD. CHEST: No deformities. LUNGS: Clear breath sounds. No wheezing, no crackles. HEART: Normal sinus rhythm. No murmur, no gallops, no rubs. ABDOMEN: Globular, soft, nontender, no masses. EXTREMITIES: No edema, no deformities. MEDICATIONS: 11/26/2017 was reviewed. LABORATORY DATA: 11/25/2017 - Urinalysis shows specific gravity 1023, protein greater than 300, no pigmented granular casts, no red cell casts, no white cell casts. 11/26/2017 - Sodium 138, potassium 4.4, chloride 113, carbon dioxide 16, BUN 34, creatinine 2.16, glu cose 89, calcium 8.5. 11/25/2017 - Creatinine 2.33. White count 9.2, hemoglobin 8.9. ASSESSMENT AND PLAN: 1. Acute kidney injury - consider hemodynamically mediated renal dysfunction. I agree with IV hydra tion. We will be increasing normal saline 200 mL per hour. I agree to hold off meloxicam. Hold off any diuretics. There is no indication for any dialytic intervention. 2. Status post cadaveric renal transplant, stable. Continue current immunosuppressive regimen. We will check tacrolimus level and adjust tacrolimus as needed. For the moment, continue current immuno suppressive regimen. 3. Mental status change - drug-induced from the narcotics. Much improved after discontinuation of s aid pain medications. Continue to hold off any NSAIDs with this patient. Overall agree with current management. We will check base met and CBC in a.m.
--- NOTE | 2017-11-26 17:48 | PDOC.PN ---
- Subjective Encounter Start Date: 11/26/17 Encounter Start Time: 17:47 Subjective: seen and examined with no new complaint - Objective Resuscitation Status: Resuscitation Status FULL:Full Resuscitation Vital Signs & Weight: Vital Signs (12 hours) Temp Pulse Resp BP Pulse Ox 11/26/17 13:37 98.2 F 62 20 181/77 H 93 L 11/26/17 09:20 97.9 F 60 16 Weight Weight 184 lb 12.8 oz I&O: 11/25/17 11/26/17 11/27/17 06:59 06:59 06:59 Intake Total 1790 Output Total 300 Balance 1490 Result Diagrams: 11/26/17 04:27 11/26/17 04:27 Phys Exam - Physical Examination Constitutional: NAD HEENT: PERRLA, moist MMs, sclera anicteric Neck: no nodes, no JVD, supple, full ROM Respiratory: no wheezing, no rales, no rhonchi, clear to auscultation bilateral Cardiovascular: RRR, no significant murmur, no rub Gastrointestinal: soft, non-tender, no distention, positive bowel sounds Dx/Plan (1) FATMATA (acute kidney injury) Code(s): N17.9 - ACUTE KIDNEY FAILURE, UNSPECIFIED Status: Acute Comment: improving f/u renal plan (2) CAD (coronary artery disease) Code(s): I25.10 - ATHSCL HEART DISEASE OF [place] CORONARY ARTERY W/O ANG PCTRS Status: Acute Comment: card rec's appreciated had card cath- 11/19 (3) Chronic renal allograft nephropathy Code(s): T86.11 - KIDNEY TRANSPLANT REJECTION Status: Acute (4) Hypertensive urgency Code(s): I16.0 - HYPERTENSIVE URGENCY Status: Acute Comment: restart bp med continue prn meds (5) Metabolic acidosis Code(s): E87.2 - ACIDOSIS Status: Acute (6) Mild protein-calorie malnutrition Code(s): E44.1 - MILD PROTEIN-CALORIE MALNUTRITION Status: Acute (7) Nausea & vomiting Code(s): R11.2 - NAUSEA WITH VOMITING, UNSPECIFIED Status: Acute (8) H/O kidney transplant Status: Chronic Comment: f/u immunosuppresive meds f/u renal plan (9) Immunosuppressed status Code(s): D89.9 - DISORDER INVOLVING THE IMMUNE MECHANISM, UNSPECIFIED Status: Chronic - Plan PT/OT, addiction social worker Appreciate renal input -: Continue IVF--consider Hco3 based --defer to Renal * .
[2017-11-26] MEDS ORDERED: Amlodipine 5 MG TAB PO SCH (21:00)
[2017-11-26] MEDS: Sodium Bicarbonate Tab 325 MG TAB PO SCH (21:04)
[2017-11-26] MEDS: traZODone HCl 50 MG TAB PO SCH (21:04)
[2017-11-26] MEDS: HYDROcodone/Acetaminophen 5/325 mg Tablet PO PRN (21:05)
[2017-11-26] MEDS: hydrALAZINE 20 MG/ML VIAL SLOW IVP PRN (23:34)
[2017-11-27] MEDS ORDERED: ALPRAZolam 0.5 MG TAB PO SCH (00:45)
[2017-11-27] MEDS: HYDROcodone/Acetaminophen 5/325 mg Tablet PO PRN ×3 (05:39→21:25)
[2017-11-27] MEDS: Sodium Chloride 0.9% 1,000 ML IV SCH ×2 (05:40→15:59)
[2017-11-27 06:16] LABS: #Lymphocytes 0.7 thou/uL (1.20-3.40); #Neutrophils 8.6 thou/uL (1.40-6.50); %Basophils 0.2 % (0.0-1.0); %Eosinophils 0.4 % (0.0-10.0); %Lymphocytes 7.1 % (21.0-51.0); %Monocytes 9.3 % (0.0-10.0); %Neutrophils 83.1 % (42.0-75.0); Hemoglobin 9.2 g/dL (12.0-16.0); Mean Corpuscular HGB CONC 31.7 g/dL (32.0-36.0); Mean Corpuscular Hemoglobin 29.6 pg (27.0-31.0); Mean Corpuscular Volume 93.4 fl (81.0-99.0); Mean Platelet Volume 7.7 fL (7.4-10.4); Platelet Count 307 thou/uL (130-400); RBC Distribution Width 14.2 % (11.5-14.5); White Blood Cell (WBC) Count 10.4 thou/uL (4.8-10.8)
[2017-11-27 06:25] LABS: Anion Gap 13 mmol/L (10-20); BUN (Urea Nitrogen) 25 mg/dL (9.8-20.1); Calc. Creatinine Clearance 50 mL/min (70-130); Calcium 8.9 mg/dL (7.8-10.44); Carbon Dioxide 16 mmol/L (23-31); Chloride 116 mmol/L (98-107); Estimated GFR-MDRD 34; Glucose 91 mg/dL (80-115); Potassium 4.2 mmol/L (3.5-5.1); Sodium 141 mmol/L (136-145)
--- NOTE | 2017-11-27 09:36 | PDOC.PN ---
- Subjective Encounter Start Date: 11/27/17 Encounter Start Time: 09:35 Patient seen and examined. No new complaints. No overnight events. Pt feeling better slowly. at bedside. weakness better. - Objective Resuscitation Status: Resuscitation Status FULL:Full Resuscitation MAR Reviewed: Yes Vital Signs & Weight: Vital Signs (12 hours) Temp Pulse Resp BP BP Pulse Ox 11/27/17 04:34 97.8 F 83 18 172/68 H 94 L 11/27/17 00:30 97.9 F 82 18 158/70 H 93 L 11/26/17 23:34 65 200/88 H 11/26/17 23:10 210/90 H Weight Weight 182 lb 3.2 oz I&O: 11/26/17 11/27/17 11/28/17 06:59 06:59 06:59 Intake Total 1790 191 Output Total 300 Balance 1490 1913 Result Diagrams: 11/27/17 05:31 11/27/17 05:31 Phys Exam - Physical Examination Constitutional: NAD HEENT: sclera anicteric Neck: supple Respiratory: wheezing present Cardiovascular: RRR Gastrointestinal: soft Musculoskeletal: no edema Neurological: non-focal Psychiatric: normal affect Skin: no rash Dx/Plan (1) Asthma Code(s): J45.909 - UNSPECIFIED ASTHMA, UNCOMPLICATED Status: Chronic (2) FATMATA (acute kidney injury) Code(s): N17.9 - ACUTE KIDNEY FAILURE, UNSPECIFIED Status: Acute Comment: improving f/u renal plan (3) CAD (coronary artery disease) Code(s): I25.10 - ATHSCL HEART DISEASE OF [place] CORONARY ARTERY W/O ANG PCTRS Status: Chronic Comment: card rec's appreciated had card cath- 11/19 (4) Chronic renal allograft nephropathy Code(s): T86.11 - KIDNEY TRANSPLANT REJECTION Status: Chronic (5) Hypertensive urgency Code(s): I16.0 - HYPERTENSIVE URGENCY Status: Acute Comment: restart bp med continue prn meds (6) H/O kidney transplant Status: Chronic Comment: f/u immunosuppresive meds f/u renal plan (7) Hypertension Code(s): I10 - ESSENTIAL (PRIMARY) HYPERTENSION Status: Chronic (8) Immunosuppressed status Code(s): D89.9 - DISORDER INVOLVING THE IMMUNE MECHANISM, UNSPECIFIED Status: Chronic (9) Altered mental state Code(s): R41.82 - ALTERED MENTAL STATUS, UNSPECIFIED Status: Resolved Comment: f/u dr gonzales plan no e/o bact meningitis - Plan cont current plan of care, plan discussed w/ family, PT/OT, social service manager, respiratory therapy, out of bed/ambulate * . cultures negative AMS getting better Cr better. f/u with renal. make Amlodipine 5 mg po bid and dose now. Add Duonebs for wheezing/Asthma. continue to hold psychotropic meds as tolerated. consult PT and CM. OK to transfer to Tele. AM labs.
--- NOTE | 2017-11-27 11:08 | PRG ---
DATE OF SERVICE: 11/27/2017 RENAL MEDICINE SUBJECTIVE: No new complaints today except for decreased appetite this morning. Denies any chest pa in or overt shortness of breath. She was seen for her renal transplantation and maintenance immunosu ppression as well as for acute kidney injury. IV hydration has been given with improvement of renal function. OBJECTIVE: VITAL SIGNS: Blood pressure 172/68, heart rate 83, respiratory rate 18, temperature 97.8, pulse ox 9 4%. GENERAL EXAM: Awake, alert, comfortable, supine, not in distress. SKIN: Adequate turgor. HEENT: Slightly pale conjunctivae. Anicteric sclerae. NECK: No neck mass, no carotid bruits, no JVD. CHEST: No deformities. LUNGS: Decreased breath sounds. HEART: Normal sinus rhythm. No murmur, no gallops, no rubs. ABDOMEN: Globular, soft, nontender, no masses. EXTREMITIES: No edema. Positive for left foot cast. MEDICATIONS: Medications of 11/27/2017 reviewed. LABORATORY DATA: Laboratories of 11/27/2017, white count 10.4, hemoglobin 9.2. Sodium 141, potassiu m 4.2, chloride 116, carbon dioxide 16, BUN 25, creatinine 1.55, GFR 34 mL per minute. Calcium 8.9. ASSESSMENT AND PLAN: 1. Status post cadaveric renal transplant, stable. Continue current immunosuppressive regimen. Tata iting for tacrolimus level. 2. Acute kidney injury - hemodynamically mediated renal dysfunction, much improved with volume reple tion. Continue to hold off any NSAIDs with this patient. I agree for planned return to the [facility]. Overall, agree with current management. Recheck basic metabolic panel and CBC in a.m.
--- NOTE | 2017-11-27 11:19 | EKG ---
Test Reason : Blood Pressure : / mmHG Vent. Rate : 057 BPM Atrial Rate : 057 BPM P-R Int : 180 ms QRS Dur : 078 ms QT Int : 386 ms P-R-T Axes : 060 -08 046 degrees QTc Int : 375 ms Sinus bradycardia with sinus arrhythmia Possible Left atrial enlargement Low voltage QRS Borderline ECG Confirmed by ABDOULAYE ABREU M.D. ([id number]), business editor SAMUEL BAEZ ([id number]) on 11/27/2017 11:18:24 AM Referred By: Confirmed By:ABDOULAYE ABREU M.D.
[2017-11-27] MEDS: ALPRAZolam 0.5 MG TAB PO SCH ×3 (11:40→21:19)
[2017-11-27] MEDS: Mycophenolate 250 MG CAP PO SCH ×2 (11:40→21:19)
[2017-11-27] MEDS: Tacrolimus 0.5 MG CAP PO SCH ×2 (11:40→21:19)
[2017-11-27] MEDS: Amlodipine 5 MG TAB PO SCH ×2 (11:41→21:18)
[2017-11-27] MEDS: Sodium Bicarbonate Tab 325 MG TAB PO SCH (21:18)
[2017-11-27] MEDS: traZODone HCl 50 MG TAB PO SCH (21:19)
[2017-11-27] MEDS: hydrALAZINE 20 MG/ML VIAL SLOW IVP PRN (23:15)
[2017-11-28] MEDS: Sodium Chloride 0.9% 1,000 ML IV SCH (01:33)
[2017-11-28] MEDS: HYDROcodone/Acetaminophen 5/325 mg Tablet PO PRN ×4 (03:06→21:12)
[2017-11-28] MEDS: hydrALAZINE 20 MG/ML VIAL SLOW IVP PRN (03:08)
[2017-11-28] MEDS: Ondansetron ODT 4 MG TAB PO PRN ×2 (04:07→09:47)
[2017-11-28 06:41] LABS: #Eosinphils 0.1 thou/uL (0.0-0.7); #Lymphocytes 0.8 thou/uL (1.20-3.40); #Monocytes 0.7 thou/uL (0.11-0.59); #Neutrophils 6.8 thou/uL (1.40-6.50); %Basophils 0.1 % (0.0-1.0); %Eosinophils 0.7 % (0.0-10.0); %Lymphocytes 9.6 % (21.0-51.0); %Monocytes 8.8 % (0.0-10.0); %Neutrophils 80.8 % (42.0-75.0); Hemoglobin 9.3 g/dL (12.0-16.0); Mean Corpuscular HGB CONC 31.7 g/dL (32.0-36.0); Mean Corpuscular Hemoglobin 29.2 pg (27.0-31.0); Mean Corpuscular Volume 92.3 fl (81.0-99.0); Mean Platelet Volume 7.6 fL (7.4-10.4); Platelet Count 302 thou/uL (130-400); RBC Distribution Width 14.1 % (11.5-14.5); Red Blood Cell (RBC) Count 3.18 mill/uL (4.20-5.40); White Blood Cell (WBC) Count 8.4 thou/uL (4.8-10.8)
[2017-11-28 06:52] LABS: Anion Gap 13 mmol/L (10-20); BUN (Urea Nitrogen) 18 mg/dL (9.8-20.1); Calc. Creatinine Clearance 64 mL/min (70-130); Calcium 8.5 mg/dL (7.8-10.44); Carbon Dioxide 18 mmol/L (23-31); Chloride 114 mmol/L (98-107); Estimated GFR-MDRD 47; Glucose 104 mg/dL (80-115); Potassium 3.3 mmol/L (3.5-5.1); Sodium 142 mmol/L (136-145)
[2017-11-28] MEDS: Tacrolimus 0.5 MG CAP PO SCH ×2 (09:23→21:10)
[2017-11-28] MEDS: Mycophenolate 250 MG CAP PO SCH ×2 (09:23→21:10)
[2017-11-28] MEDS: Amlodipine 5 MG TAB PO SCH ×2 (09:23→21:10)
--- NOTE | 2017-11-28 09:29 | PDOC.PN ---
- Subjective Encounter Start Date: 11/28/17 Encounter Start Time: 09:27 Patient seen and examined. No new complaints. No overnight events. Pt c/o nausea this am. still having sob. mentation better. at bedside. - Objective Resuscitation Status: Resuscitation Status FULL:Full Resuscitation MAR Reviewed: Yes Vital Signs & Weight: Vital Signs (12 hours) Temp Pulse Resp BP BP Pulse Ox 11/28/17 07:18 84 20 96 11/28/17 03:11 96 11/28/17 03:08 93 188/64 H 11/28/17 03:00 98.6 F 93 20 188/64 H 93 L 11/27/17 23:19 96 11/27/17 23:15 88 176/64 H 11/27/17 23:00 98.3 F 88 24 H 176/64 H 96 Weight Weight 179 lb 6.4 oz I&O: 11/27/17 11/28/17 11/29/17 06:59 06:59 06:59 Intake Total 1912 1920 Output Total 400 Balance 1912 1520 Result Diagrams: 11/28/17 05:54 11/28/17 05:54 Phys Exam - Physical Examination Constitutional: NAD HEENT: sclera anicteric Neck: supple Respiratory: wheezing present Cardiovascular: RRR Gastrointestinal: soft Musculoskeletal: no edema Psychiatric: normal affect, A&O x 3 Skin: no rash Dx/Plan (1) Asthma Code(s): J45.909 - UNSPECIFIED ASTHMA, UNCOMPLICATED Status: Chronic (2) FATMATA (acute kidney injury) Code(s): N17.9 - ACUTE KIDNEY FAILURE, UNSPECIFIED Status: Acute Comment: improving f/u renal plan (3) CAD (coronary artery disease) Code(s): I25.10 - ATHSCL HEART DISEASE OF [place] CORONARY ARTERY W/O ANG PCTRS Status: Chronic Comment: card rec's appreciated had card cath- 11/19 (4) Chronic renal allograft nephropathy Code(s): T86.11 - KIDNEY TRANSPLANT REJECTION Status: Chronic (5) Hypertensive urgency Code(s): I16.0 - HYPERTENSIVE URGENCY Status: Acute Comment: restart bp med continue prn meds (6) H/O kidney transplant Status: Chronic Comment: f/u immunosuppresive meds f/u renal plan (7) Hypertension Code(s): I10 - ESSENTIAL (PRIMARY) HYPERTENSION Status: Chronic (8) Immunosuppressed status Code(s): D89.9 - DISORDER INVOLVING THE IMMUNE MECHANISM, UNSPECIFIED Status: Chronic (9) Altered mental state Code(s): R41.82 - ALTERED MENTAL STATUS, UNSPECIFIED Status: Resolved Comment: f/u dr gonzales plan no e/o bact meningitis - Plan cont current plan of care, plan discussed w/ family, PT/OT, DVT proph w/heparin * . still sob will add steroids stop IV fluids continue nebs CXR today. consult pulmonology lasix 40 mg IV today. AM labs. Add Zofran and PPI.
[2017-11-28] MEDS ORDERED: Ondansetron HCl/PF 4 MG/2 ML Vial IVP PRN (09:30)
[2017-11-28] MEDS: ALPRAZolam 0.5 MG TAB PO SCH ×3 (09:31→21:09)
[2017-11-28] MEDS ORDERED: Furosemide 40 MG/4 ML VIAL SLOW IVP SCH (10:00)
[2017-11-28] MEDS ORDERED: Potassium Chloride 20 MEQ TAB PO SCH (10:00)
--- NOTE | 2017-11-28 12:14 | RAD ---
PORTABLE CHEST 1 VIEW: DATE: 11/28/17. TIME: 11/43 a.m. HISTORY: Shortness of breath. FINDINGS: Comparison is made with the exam of 11/25/17. The heart size is normal. The lungs are expanded without focal areas of consolidation, pneumothorax, or pleural effusions. IMPRESSION: No radiographic evidence of acute cardiopulmonary process. POS: [facility]
[2017-11-28] MEDS ORDERED: Carvedilol 3.125 MG TAB PO SCH (16:00)
[2017-11-28] MEDS: Arformoterol 15 MCG/2 ML NEB NEB SCH (18:41)
[2017-11-28] MEDS: Budesonide 0.5 MG/2 ML NEB INH SCH (18:41)
--- NOTE | 2017-11-28 18:56 | CON ---
DATE OF CONSULTATION: 11/28/2017 REASON FOR CONSULTATION: COPD exacerbation. HISTORY OF PRESENT ILLNESS: This patient has been seen by Dr. Caceres in the past. She was readmitted to the hospital from [facility] after having a drug reaction. She was noted to be wheezing today. I was asked to see her in that regard. Trace of wheezing has been for several weeks. She takes nebulization treatments to help with that. She was smoking up until hospitalization earlier this month. PAST MEDICAL HISTORY: 1. End-stage renal disease requiring renal transplant in 2005. 2. Hypertension. 3. Hyperlipidemia. 4. Coronary artery disease. 5. COPD. 6. Chronic pain. PAST SURGICAL HISTORY: 1. Renal transplant. 2. Cardiac catheterization. 3. Cholecystectomy. 4. Hysterectomy. 4. ORIF of the left leg after recent fracture. ALLERGIES: None. SOCIAL HISTORY: Has a 26-[id number]-[id number] history of smoking 1 pack per day. Does not consume alcohol. Lives at home with her . MEDICATIONS: Tylenol, DuoNebs, Xanax, Norvasc, heparin, Apresoline, Solu-Medrol , CellCept, Protonix, Prograf, Desyrel. FAMILY MEDICAL HISTORY: Remarkable for Alzheimer's disease. REVIEW OF SYSTEMS: Twelve-point review of systems is negative except for the wheezing. PHYSICAL EXAMINATION: VITAL SIGNS: Temperature 98, pulse 85, respirations 20, O2 saturation 94%, blood pressure 166/70. GENERAL: She is awake, alert, lying on her back and in no distress. HEENT: Sclerae are anicteric. Pupils react. Oropharynx clear. NECK: No JVD. LUNGS: She has some mild expiratory wheezing bilaterally. CARDIOVASCULAR: S1, S2 regular without murmur or gallop. ABDOMEN: Soft and nontender. SKIN: Shows no lesions. She had a cast from her left knee downward. LABORATORY DATA: White blood cell count 8.4, hematocrit 29.4, platelet count 302. Sodium 142, potassium 3.3, chloride 114, CO2 18, BUN 18, creatinine 1.2, glucose 104. ASSESSMENT: 1. Chronic obstructive pulmonary disease -- chronic disease, likely no acute exacerbation. 2. Recent leg fracture. 3. Tobacco abuse. PLAN: I will go ahead and add long-acting beta agonist and inhaled steroids to her regimen, continue with the scheduled DuoNeb, likely can go back to rehab at any time. greater than 50 minutes time was spent at the patients bedside and on pts unit , reviewing and managing her care MTDD
[2017-11-28] MEDS: Heparin 5,000 UNITS/ML VIAL SC SCH (21:10)
[2017-11-28] MEDS: Sodium Bicarbonate Tab 325 MG TAB PO SCH (21:11)
[2017-11-28] MEDS: traZODone HCl 50 MG TAB PO SCH (21:11)
[2017-11-29] MEDS: HYDROcodone/Acetaminophen 5/325 mg Tablet PO PRN ×4 (03:11→22:01)
[2017-11-29] MEDS: Budesonide 0.5 MG/2 ML NEB INH SCH ×2 (07:23→18:53)
[2017-11-29] MEDS: Arformoterol 15 MCG/2 ML NEB NEB SCH ×2 (07:24→18:53)
[2017-11-29] MEDS: Heparin 5,000 UNITS/ML VIAL SC SCH ×2 (10:21→20:31)
[2017-11-29] MEDS: Mycophenolate 250 MG CAP PO SCH ×2 (10:21→20:30)
[2017-11-29] MEDS: Carvedilol 3.125 MG TAB PO SCH ×2 (10:22→16:32)
[2017-11-29] MEDS: Amlodipine 5 MG TAB PO SCH (10:22)
[2017-11-29] MEDS: Tacrolimus 0.5 MG CAP PO SCH ×2 (10:22→20:29)
[2017-11-29] MEDS: ALPRAZolam 0.5 MG TAB PO SCH ×3 (10:30→20:31)
--- NOTE | 2017-11-29 11:02 | PDOC.PN ---
- Subjective Encounter Start Date: 11/29/17 Encounter Start Time: 11:00 still weak and having cough. breathing getting better. - Objective Resuscitation Status: Resuscitation Status FULL:Full Resuscitation MAR Reviewed: Yes Vital Signs & Weight: Vital Signs (12 hours) Temp Pulse Resp BP BP Pulse Ox 11/29/17 10:22 84 164/72 H 11/29/17 07:24 95 11/29/17 07:23 85 12 11/29/17 04:00 98.9 F 79 18 172/70 H 11/29/17 03:59 96 11/28/17 23:08 96 Weight Weight 174 lb I&O: 11/28/17 11/29/17 11/30/17 06:59 06:59 06:59 Intake Total 1920 360 Output Total 400 Balance 1520 360 Result Diagrams: 11/28/17 05:54 11/28/17 05:54 Phys Exam - Physical Examination mild distress with labored breathing cough present HEENT: sclera anicteric Neck: supple Respiratory: wheezing present rales scattered rhonchi Cardiovascular: RRR Gastrointestinal: soft Musculoskeletal: edema present Neurological: non-focal, moves all 4 limbs Psychiatric: normal affect, A&O x 3 Skin: no rash Dx/Plan (1) Asthma Code(s): J45.909 - UNSPECIFIED ASTHMA, UNCOMPLICATED Status: Chronic (2) FATMATA (acute kidney injury) Code(s): N17.9 - ACUTE KIDNEY FAILURE, UNSPECIFIED Status: Acute Comment: improving f/u renal plan (3) CAD (coronary artery disease) Code(s): I25.10 - ATHSCL HEART DISEASE OF [place] CORONARY ARTERY W/O ANG PCTRS Status: Chronic Comment: card rec's appreciated had card cath- 11/19 (4) Chronic renal allograft nephropathy Code(s): T86.11 - KIDNEY TRANSPLANT REJECTION Status: Chronic (5) Hypertensive urgency Code(s): I16.0 - HYPERTENSIVE URGENCY Status: Acute Comment: restart bp med continue prn meds (6) H/O kidney transplant Status: Chronic Comment: f/u immunosuppresive meds f/u renal plan (7) Hypertension Code(s): I10 - ESSENTIAL (PRIMARY) HYPERTENSION Status: Chronic (8) Immunosuppressed status Code(s): D89.9 - DISORDER INVOLVING THE IMMUNE MECHANISM, UNSPECIFIED Status: Chronic (9) Altered mental state Code(s): R41.82 - ALTERED MENTAL STATUS, UNSPECIFIED Status: Resolved Comment: f/u dr gonzales plan no e/o bact meningitis (10) COPD (chronic obstructive pulmonary disease) Status: Acute - Plan cont current plan of care, PT/OT, transition social worker, respiratory therapy, DVT proph w/heparin * . continue nebs Appreciate assistance from pulmonology. Added Brovana and budesonide. likely DC to rehab in AM. AM labs.
[2017-11-29] MEDS ORDERED: NIFEdipine XL 30 MG TAB PO SCH (11:15)
[2017-11-29] MEDS: traZODone HCl 50 MG TAB PO SCH (20:30)
[2017-11-29] MEDS: Sodium Bicarbonate Tab 325 MG TAB PO SCH (20:31)
--- NOTE | 2017-11-29 20:51 | PRG ---
DATE OF SERVICE: 11/29/2017 SERVICE: Pulmonary Medicine. INTERVAL HISTORY: The patient is doing great from a respiratory standpoint. Her breathing is much i mproved. She is coughing, but not bringing up any sputum. She denies having any fevers or chills. Her breathing is currently comfortable. She worked with physical therapy today and her breathing did not limit that activity. PHYSICAL EXAMINATION: VITAL SIGNS: Afebrile, pulse 74, blood pressure 155/70, respirations 18, saturation 92% on room air. GENERAL: Patient is awake, alert, in no apparent distress. LUNGS: Decreased air entry with a prolonged expiratory phase. I hear rhonchi, wheezing, and crackle s all present. HEART: Normal rate, regular. ABDOMEN: Soft, nontender, nondistended. Bowel sounds are positive. MUSCULOSKELETAL: Left lower extremity is wrapped in a brace. Outside of this, there is no significa nt edema, cyanosis, or clubbing. ASSESSMENT: 1. Chronic obstructive pulmonary disease without current exacerbation. 2. Leg fracture, status post fixation. 3. Tobacco abuse, ongoing. PLAN: At this point, the patient has essentially returned to baseline from a respiratory standpoint. She is stable from a pulmonary perspective for transition back to the rehabilitation center. I chandana l continue to follow while she remains in this location for the time being.
[2017-11-30] MEDS: HYDROcodone/Acetaminophen 5/325 mg Tablet PO PRN ×3 (03:59→15:31)
[2017-11-30 05:09] LABS: #Lymphocytes 0.5 thou/uL (1.20-3.40); #Monocytes 0.4 thou/uL (0.11-0.59); #Neutrophils 7.8 thou/uL (1.40-6.50); %Eosinophils 0.2 % (0.0-10.0); %Lymphocytes 5.2 % (21.0-51.0); %Monocytes 4.3 % (0.0-10.0); %Neutrophils 90.3 % (42.0-75.0); Mean Corpuscular HGB CONC 31.6 g/dL (32.0-36.0); Mean Corpuscular Volume 91.6 fl (81.0-99.0); Mean Platelet Volume 7.6 fL (7.4-10.4); Platelet Count 286 thou/uL (130-400); RBC Distribution Width 13.6 % (11.5-14.5); Red Blood Cell (RBC) Count 3.46 mill/uL (4.20-5.40); White Blood Cell (WBC) Count 8.7 thou/uL (4.8-10.8)
[2017-11-30 05:17] LABS: Anion Gap 11 mmol/L (10-20); BUN (Urea Nitrogen) 23 mg/dL (9.8-20.1); Calc. Creatinine Clearance 54 mL/min (70-130); Calcium 8.4 mg/dL (7.8-10.44); Carbon Dioxide 22 mmol/L (23-31); Chloride 110 mmol/L (98-107); Estimated GFR-MDRD 40; Glucose 119 mg/dL (80-115); Potassium 4.4 mmol/L (3.5-5.1); Sodium 139 mmol/L (136-145)
[2017-11-30] MEDS: Budesonide 0.5 MG/2 ML NEB INH SCH (06:12)
[2017-11-30] MEDS: Arformoterol 15 MCG/2 ML NEB NEB SCH (06:20)
[2017-11-30] MEDS: Carvedilol 3.125 MG TAB PO SCH (08:41)
[2017-11-30] MEDS: ALPRAZolam 0.5 MG TAB PO SCH ×2 (08:41→13:24)
[2017-11-30] MEDS: Mycophenolate 250 MG CAP PO SCH (08:41)
[2017-11-30] MEDS: Heparin 5,000 UNITS/ML VIAL SC SCH (08:42)
[2017-11-30] MEDS: Tacrolimus 0.5 MG CAP PO SCH (08:42)
[2017-11-30] MEDS ORDERED: NIFEdipine XL 30 MG TAB PO SCH (09:00)
[2017-11-30 11:53] VITALS: BP 154/75; TEMP 99.2
--- NOTE | 2017-11-30 12:28 | PDOC.PN ---
- Subjective Encounter Start Date: 11/30/17 Encounter Start Time: 12:26 Patient seen and examined. No new complaints. No overnight events. feels good today. - Objective Resuscitation Status: Resuscitation Status FULL:Full Resuscitation MAR Reviewed: Yes Vital Signs & Weight: Vital Signs (12 hours) Temp Pulse Resp BP BP Pulse Ox Pulse Ox 11/30/17 11:52 99.2 F 81 16 154/75 H 93 L 11/30/17 09:06 90 L 11/30/17 08:41 82 150/84 H 11/30/17 08:16 97.9 F 82 16 150/84 H 94 L 11/30/17 08:00 97.9 F 82 16 11/30/17 04:00 81 18 93 L 11/30/17 03:54 96 Pulse Ox 11/30/17 11:52 11/30/17 09:06 92 L 11/30/17 08:41 11/30/17 08:16 11/30/17 08:00 11/30/17 04:00 11/30/17 03:54 Weight Weight 181 lb 1.6 oz I&O: 11/29/17 11/30/17 12/01/17 06:59 06:59 06:59 Intake Total 360 972 11 Balance 360 972 11 Result Diagrams: 11/30/17 04:32 11/30/17 04:32 Phys Exam - Physical Examination Constitutional: NAD HEENT: sclera anicteric Neck: supple Respiratory: no wheezing, no rales Cardiovascular: RRR Gastrointestinal: soft Musculoskeletal: no edema Neurological: non-focal, moves all 4 limbs Psychiatric: normal affect, A&O x 3 Skin: no rash Dx/Plan (1) Asthma Code(s): J45.909 - UNSPECIFIED ASTHMA, UNCOMPLICATED Status: Chronic (2) FATMATA (acute kidney injury) Code(s): N17.9 - ACUTE KIDNEY FAILURE, UNSPECIFIED Status: Acute Comment: improving f/u renal plan (3) CAD (coronary artery disease) Code(s): I25.10 - ATHSCL HEART DISEASE OF [place] CORONARY ARTERY W/O ANG PCTRS Status: Chronic Comment: card rec's appreciated had card cath- 11/19 (4) Chronic renal allograft nephropathy Code(s): T86.11 - KIDNEY TRANSPLANT REJECTION Status: Chronic (5) Hypertensive urgency Code(s): I16.0 - HYPERTENSIVE URGENCY Status: Acute Comment: restart bp med continue prn meds (6) H/O kidney transplant Status: Chronic Comment: f/u immunosuppresive meds f/u renal plan (7) Hypertension Code(s): I10 - ESSENTIAL (PRIMARY) HYPERTENSION Status: Chronic (8) Immunosuppressed status Code(s): D89.9 - DISORDER INVOLVING THE IMMUNE MECHANISM, UNSPECIFIED Status: Chronic (9) Altered mental state Code(s): R41.82 - ALTERED MENTAL STATUS, UNSPECIFIED Status: Resolved Comment: f/u dr gonzales plan no e/o bact meningitis (10) COPD (chronic obstructive pulmonary disease) Status: Acute - Plan cont current plan of care, plan discussed w/ family * . DC to rehab Selected pain and psychotropic meds continue po steroids. continue nebs
[2017-11-30] MEDS: Acetaminophen 325 MG TAB PO PRN (13:24)
--- NOTE | 2017-11-30 13:32 | EEG ---
Referring Physician: DR. TAMI ESTEBAN EEG # [id number] TEST TYPE: ROUTINE PORTABLE INPATIENT REASON FOR EEG: ALTERED MENTAL STATUS DATE OF EE11/16/2017 EEG DESCRIPTION: This is a 21 channel digital EEG recording. Electrodes are placed according to international 10-20 electrode placement system. The background rhythm is predominately 4-5 hertz, low to medium voltage theta rhythm. There are also periods of 2-3 hertz, low to medium voltage, intermittent, diffuse delta rhythm. HYPERVENTILATION: Could not be performed. PHOTIC STIMULATION: Showed no effect. There are no epileptiform discharges, sharp transients or asymmetry noted. EKG LEAD: Shows 84 beats per minute, regular rhythm. IMPRESSION: THIS IS AN ABNORMAL EEG. IT SHOWS MILD NONSPECIFIC CEREBRAL DYSFUNCTION. HOWEVER THERE ARE NO EPILEPTIFORM DISCHARGES, SHARP TRANSIENTS OR ASYMMETRY NOTED. THIS COULD BE PRESENT IN PATIENTS WITH TOXIC METABOLIC ENCEPHALOPATHY. PLEASE CORRELATE THIS CLINICALLY. Sensory Scientist: ANTONY Stem Dryer Maintainer: EEG.ROSA ELENA FR[place]
[2017-11-30 14:14] LABS: Tacrolimus 8.1 ng/mL (2.0-20.0)
--- NOTE | 2017-12-01 03:40 | DIS ---
DATE OF ADMISSION: 11/25/2017 DATE OF DISCHARGE: 11/30/2017 DISCHARGE DIAGNOSES: 1. Altered mentation. 2. Polypharmacy. 3. History of renal transplant. 4. Chronic kidney disease, status post renal transplant. 5. Hypertension. 6. Hyperlipidemia. 7. Coronary artery disease, chronic pain syndrome. 8. History of chronic obstructive pulmonary disease. 9. Acute kidney injury, resolving. 10. Immunosuppressed status. CONSULTS: Dr. Julio from nephrology, Dr. Perry from pulmonology. PROCEDURES: None. HOSPITAL COURSE: This is a 62-year-old female with history of COPD, hypertension, hyperlipidemia, ch ronic pain syndrome who was brought to the hospital with altered mentation. The patient was in rehab ilitation after recent leg injury and was getting rehab and was found to have altered mentation was s ent over here. Initially, we thought probably having an infection, but although cultures remained ne gative. The patient's medication was adjusted and downgraded and patient had significant improvement in the mental status. Patient also had COPD exacerbation while in the hospital and was treated. Santy figueroa had acute kidney injury, Dr. Julio was consulted and had also improved to baseline with creatinin e on discharge was 1.3. Patient was feeling better, stable enough to go to the rehabilitation. Keri hebert was at the bedside. CONDITION ON DISCHARGE: Stable. DISPOSITION: To [facility]. DISCHARGE MEDICATIONS: Aspirin 81 mg daily, Lipitor 40 mg at bedtime, Wellbutrin 150 p.o. daily, tra zodone 50 p.o. at bedtime, prednisone 20 mg p.o. q.a.m., Prograf 2.5 p.o. b.i.d., Procardia 30 mg p.o . daily, CellCept 500 mg p.o. b.i.d., carvedilol 3.125 b.i.d., Pulmicort 0.5 inhalation b.i.d., Brova na 15 mcg nebulizer b.i.d., alprazolam 0.5 mg p.o. t.i.d. ALLERGIES: LATEX AND PROMETHAZINE. DISCHARGE FOLLOWUP: 1. Follow up with the physician at the [facility]. 2. Follow up with primary care physician in 1-2 weeks after discharge from the hospital. 3. Follow with Pulmonology in 2-3 weeks. 4[address] Follow with Dr. Julio as scheduled. Please note that I have spent more than 35 minutes coordinating the discharge care of this patient.
[2017-12-01] MEDS ORDERED: predniSONE 20 MG TAB PO SCH (08:00)
--- NOTE | 2017-12-24 15:02 | ADD-CON ---
ADDENDUM DATE OF CONSULTATION: 11/28/2017 PLAN: Nebulizer treatments have been ordered 4 times daily with Jeff for this patient. I have re viewed the patient's x-ray films and they showed no significant findings. Additionally, I have revie wed the radiologist's report.
== END 2017-11-30 15:44 ==
LOC: ERS 10:18 → 2NO 13:32 → T4-A 11-29 19:02
PROVIDERS: ADMIT Internal Medicine; ATTEND Internal Medicine
DX: R41.82 Altered mental status, unspecified (principal); I12.0 Hypertensive chronic kidney disease with stage 5 chronic kidney disease or end stage renal disease; N18.6 End stage renal disease; E78.5 Hyperlipidemia, unspecified; I25.10 Atherosclerotic heart disease of native coronary artery without angina pectoris; G89.4 Chronic pain syndrome; J44.9 Chronic obstructive pulmonary disease, unspecified; N17.9 Acute kidney failure, unspecified; F17.290 Nicotine dependence, other tobacco product, uncomplicated; D72.829 Elevated white blood cell count, unspecified; R74.8 Abnormal levels of other serum enzymes; F32.9 Major depressive disorder, single episode, unspecified; F41.9 Anxiety disorder, unspecified; I16.0 Hypertensive urgency; E87.2 Acidosis; R11.2 Nausea with vomiting, unspecified; J45.909 Unspecified asthma, uncomplicated; T86.11 Kidney transplant rejection; Z79.82 Long term (current) use of aspirin; Z79.2 Long term (current) use of antibiotics; Z79.899 Other long term (current) drug therapy; Z88.8 Allergy status to other drugs, medicaments and biological substances; Z91.040 Latex allergy status; Z94.0 Kidney transplant status; Z90.49 Acquired absence of other specified parts of digestive tract; Z90.710 Acquired absence of both cervix and uterus; Z98.890 Other specified postprocedural states; Z87.81 Personal history of (healed) traumatic fracture
CPT/HCPCS: 51701; 70450; 71010 ×2; 80048 ×4; 80053; 80197; 82553; 83605; 84484 ×2; 85025 ×5; 87040; 87086; 93005; 94640 ×6; 96361 ×5; 96374; 96375; 96376 ×4; 97110 ×3; 97139 ×2; 97530 ×3; 99291; G0378 ×2; G8978; G8979; 36415; 36416; 81003; 81015; 96360; A4216; A4353; J0360; J1644; J1940; J2920; J7507; J7517; J7620; J7626; Q0162

== ENCOUNTER 2017-12-19 14:57 | Inpatient (IN) | payer MEDICARE ==
[2017-12-19 15:35] LABS: Hemoglobin 9.4 g/dL (12.0-16.0); Mean Corpuscular HGB CONC 29.6 g/dL (32.0-36.0); Mean Corpuscular Hemoglobin 28.1 pg (27.0-31.0); Mean Corpuscular Volume 95.1 fl (81.0-99.0); Mean Platelet Volume 8.5 fL (7.4-10.4); Platelet Count 221 thou/uL (130-400); RBC Distribution Width 14.1 % (11.5-14.5); Red Blood Cell (RBC) Count 3.35 mill/uL (4.20-5.40); White Blood Cell (WBC) Count 26.6 thou/uL (4.8-10.8)
[2017-12-19 15:40] LABS: Prothrombin Time 13.6 SEC (12.0-14.7)
--- NOTE | 2017-12-19 15:44 | RAD ---
SINGLE VIEW OF THE CHEST: Comparison: 11-25-17 History: Altered mental status. FINDINGS: Single view of the chest shows a cardiomediastinal silhouette which is upper limits of normal in size . There is no evidence of consolidation, mass, or pleural effusion. The bones are unremarkable. IMPRESSION: No evidence of acute cardiopulmonary disease. POS: [facility]
[2017-12-19 15:48] LABS: ALT (SGPT) 10 U/L (8-55); AST (SGOT) 12 U/L (5-34); Albumin 3.6 g/dL (3.4-4.8); Alkaline Phosphatase 114 U/L (40-150); Anion Gap 16 mmol/L (10-20); BUN (Urea Nitrogen) 33 mg/dL (9.8-20.1); Bilirubin, Total 0.2 mg/dL (0.2-1.2); Calc. Creatinine Clearance 0 mL/min (70-130); Calcium 8.8 mg/dL (7.8-10.44); Carbon Dioxide 20 mmol/L (23-31); Chloride 110 mmol/L (98-107); Estimated GFR-MDRD 19; Globulin 2.4 g/dL (2.4-3.5); Glucose 110 mg/dL (80-115); Potassium 5.1 mmol/L (3.5-5.1); Sodium 141 mmol/L (136-145)
--- NOTE | 2017-12-19 15:48 | CT ---
CT OF THE BRAIN WITHOUT CONTRAST: Comparison: 11-25-17 History: Altered mental status. Technique: Multiple contiguous axial images were obtained in a CT of the brain without contrast. FINDINGS: The brain is normal in morphology and attenuation without focal lesions or confluent areas of infarct ion. There is no evidence of hydrocephalus, intracranial hemorrhage or extraaxial fluid collections. The calvarium and overlying soft tissues are unremarkable. The visualized paranasal sinuses and masto id air cells are well aerated. IMPRESSION: No evidence of acute intracranial abnormality. POS: [facility]
[2017-12-19 15:49] LABS: Magnesium 1.4 mg/dL (1.6-2.6)
[2017-12-19 15:50] LABS: Acetaminophen Less than 6.0 mcg/mL (10.0-30.0); Alcohol Less than 10 mg/dL (Less than 10); CK (CPK) 49 U/L (29-168); Salicylate Less than 8.0 mg/dL (15.0-30.0)
[2017-12-19 16:01] LABS: CKMB 1.7 ng/mL (0-6.6); Troponin I 0.061 ng/mL (< 0.028)
[2017-12-19 16:10] LABS: Anisocytosis SLIGHT = 6-15 cells (100X) (0-5/hpf); Band 5 % (5-11); Hypochromia SLIGHT = 6-15 cells (100X) (0-5/hpf); Lymphocytes 3 % (21-51); MDiff Complete? YES; Monocytes 3 % (0-10); Neutrophil 89 % (42-75); PLT Morphology Comment Appears Adequate
[2017-12-19 16:19] LABS: Actual Bicarbonate (HCO3a) 21.1 mEq/L (22-26); Base Excess (BEa) -5.4 mEq/L (0 (+/-) 2.5); CO2 Tension 46.3 mmHg (35.0-45.0); Hematocrit-ABG 27.6 % (36.0-47.0); Hemoglobin (Hb) 8.6 g/dL (12.0-16.0); O2 Tension (PaO2) 78.8 mmHg (80.0-100.0); pH, Arterial 7.28 (7.35-7.45)
[2017-12-19 16:20] LABS: Analyzer IN Cardio ER; Calcium, Ionized 1.2 mmol/L (1.12-1.30); Puncture Site RRA
[2017-12-19] MEDS ORDERED: Naloxone HCl 0.4 mg/ml Vial ONE (16:23)
[2017-12-19 16:35] LABS: Bilirubin Negative (Negative); Blood, Urine Small (Negative); Clarity TURBID (Clear); Glucose, Urine (Dipstick) Negative (Negative); Leukocyte Moderate (Negative); Nitrite Positive (Negative); Protein, Urine (Dipstick) > or equal to 300 mg/dL (Neg-Trace); Specific Gravity, Urine 1.019 (1.002-1.036); Urobilinogen 0.2 mg/dL (0.2-1.0); pH, Urine 5.5 (5.0-9.0)
[2017-12-19 16:37] LABS: Bacteria/HPF 4+ HPF (None Seen); Hyaline Casts/LPF 0-3 HYALINE CAST LPF (0-3 Hyaline); RBC/HPF 21-50 HPF (0-3)
[2017-12-19] MEDS ORDERED: methylPREDNISolone Sod Succ/PF 125 MG/2 ML VIAL ONE (16:38)
[2017-12-19] MEDS ORDERED: Water For Injection,Sterile 20 ML ONE (16:38)
[2017-12-19] MEDS ORDERED: Magnesium Sulfate 2 GM/100 ML BAG ONE (16:38)
[2017-12-19] MEDS ORDERED: Ampicillin/Sulbactam 3 GM in Sodium Chloride 0.9% 100 ML IVPB SCH (16:45)
[2017-12-19 16:46] LABS: Amphetamine Not Detected (NotDetected); Barbiturates Screen Not Detected (NotDetected); Benzodiazepine Screen Detected (NotDetected); Cocaine Metabolite Screen Not Detected (NotDetected); Medtox Control Line Valid? VALID (VALID); Medtox Reader # READER 1; Methadone Not Detected (NotDetected); Methamphetamine Not Detected (NotDetected); Opiate Screen Detected (NotDetected); Oxycodone Screen Not Detected (NotDetected); Phencyclidine (PCP) Not Detected (NotDetected); THC/Cannabinoid Screen Not Detected (NotDetected); Tricyclic Screen Detected (NotDetected)
[2017-12-19] MEDS ORDERED: Furosemide 100 MG/10 ML VIAL ONE (17:16)
[2017-12-19 18:38] LABS: Troponin I 0.071 ng/mL (< 0.028)
[2017-12-19] MEDS ORDERED: Sodium Chloride 0.9% 1,000 ML IV SCH (20:31)
[2017-12-19] MEDS ORDERED: Guaifenesin DM 100-10/5 ML UDCUP PO PRN (20:31)
[2017-12-19] MEDS ORDERED: Sodium Bicarbonate Tab 325 MG TAB PO SCH (21:00)
[2017-12-19] MEDS ORDERED: Atorvastatin Calcium 40 MG TAB PO SCH (21:00)
[2017-12-19] MEDS: Tacrolimus 0.5 MG CAP PO SCH (21:29)
[2017-12-19] MEDS: Mycophenolate 250 MG CAP PO SCH (21:29)
[2017-12-19] MEDS: Heparin 5,000 UNITS/ML VIAL SC SCH (21:30)
[2017-12-19 21:38] LABS: Troponin I 0.072 ng/mL (< 0.028)
[2017-12-19 23:21] VITALS: BMI 31.7
--- NOTE | 2017-12-20 00:54 | HP ---
REASON FOR ADMISSION: Altered mental state likely aspiration pneumonia, sepsis, urinary tract infect ion, prescription drug overdose. HISTORY OF PRESENTING ILLNESS: Please note majority of this history is obtained by my talking to michelle gonzalez's at bedside, prior records and ER physician as patient is not fully oriented to give a comprehensive history. Per , patient had gone to fill her prescriptions, which is a 20 minute s ride away from home. The lineup was big at the Pharmacy. He kept calling his to let her know that he will be late by 10 or 15 minutes, but was not getting any response from her. Her so on raised back home to see her on the couch with vomiting on herself. She was not arousable. He anup led EMS and patient was brought here. She has significant history of being recently discharged to re [facility] from where she went home on Wednesday. She has had left tibia-fibula fracture and has not weightbea ring on that side. She is wheelchair bound for ambulation. does not know if she took her pa in medications including Tylenol No.3 with Xanax, which she normally takes. He is not sure if she to ok extra doses of the same. EMS gave one dose of Narcan, for which she had a mild response. Subsequ ent doses of Narcan did not give the elicited response. On arrival here, patient was obtunded. She has been maintaining her airway. On repeated tactile stimuli, patient wakes up only to fall asleep s oon, does not appear to be in any distress at present. PAST MEDICAL AND SURGICAL HISTORY: Recent history of left tibia-fibula fracture and being discharged to rehab on the 2nd of this month. End-stage renal disease with history of transplant in 2005, hist ory of CHF, history of coronary artery disease, history of minor TIAs with no residual paralysis per , mild dementia per , cholecystectomy, prior cardiac catheterization, mood disorder, de pression, dyslipidemia, COPD, hypertension. PERSONAL HISTORY: Has quit smoking and does way for occasionally does not abuse alcohol or drugs. FAMILY HISTORY: There is history of heart disease. Father had dementia. ALLERGIES: No known drug allergies. CURRENT MEDICATIONS: Per prior records, patient is on Xanax 0.5 mg 3 times daily p.r.n., Brovana 15 mcg nebulizer twice daily, aspirin 81 mg daily, Lipitor 40 mg p.o. at bedtime, Pulmicort inhaler twic e daily, bupropion extended-release 150 mg daily, Tums 500 mg 1-2 tabs q.6 hourly p.r.n., Coreg 3.125 mg p.o. twice daily, Tylenol No.3 p.r.n., CellCept 500 mg twice daily, Procardia-XL 30 mg daily, pre dnisone 20 mg daily, sodium bicarbonate 650 mg p.o. at bedtime, Prograf 2.5 mg p.o. twice daily, traz odone 50 mg p.o. at bedtime. ALLERGIES: LATEX and PROMETHAZINE. REVIEW OF SYSTEMS: Cannot be obtained as patient is currently not oriented. PHYSICAL EXAMINATION: GENERAL: The patient is a 62-year-old female who is currently very lethargic, but not in any distres s and is maintaining airway. VITAL SIGNS: Blood pressure on arrival was 62/42, has received fluid boluses and systolic blood pres sure has come up to 134, pulse 70 per minute, respiratory rate 26 per minute, temperature 98.2 degree s Fahrenheit, saturating 96% on 2 liters nasal cannula. NECK: Supple, no elevated JVD. HEENT: Extraocular muscles intact. Pupils reacting to light. Oral cavity, mucous membranes are dry . No exudates or congestion. CARDIOVASCULAR: S1, S2 heard. Regular rhythm. RESPIRATORY: Air entry 1+ bilateral. Scattered rhonchi plus bilateral. ABDOMEN: Soft. Bowel sounds heard. No tenderness, rigidity, or guarding. EXTREMITIES: Left leg is in a splint. Right lower extremity: No edema or calf tenderness. VASCULAR SYSTEM: Peripheral pulses 1+ bilateral. No ischemic ulcerations or gangrene. CENTRAL NERVOUS SYSTEM: The patient is very lethargic, but moves all 4 extremities. PSYCHIATRIC: Cannot be accurately assessed due to patient's current, extremely lethargic. LABORATORY AND X-RAY FINDINGS: White count of 26, H&H 9 and 31, platelet count is 221 with 89% neutr ophils. Blood gas done showed a pH of 7.28, pCO2 of 46, pO2 of 78. Bicarbonate on the blood gas was 21. PT/INR 13 and 1.0. BNP is 1355. Troponin I is indeterminate at 0.07. TSH 1.22, BUN 33, creat inine 2.5, serum bicarbonate 20, serum glucose 110. Lactic acid 0.8, albumin is 3.6. Urine drug scr een was positive for opiates, tricyclics, and benzodiazepines. UA is positive for UTI with positive nitrite, moderate leukocyte esterase, greater than 50 wbc's and 4+ bacteria. Chest x-ray done shows no evidence of acute cardiopulmonary abnormalities. CT brain showed no acute intracranial abnormalit y. CLINICAL IMPRESSION AND PLAN: Patient will be admitted to the IM for acute encephalopathy, which i s unclear if it is due to sepsis or drug overdose, has elevated white count and when found he r, she had vomitus all around her when she was sitting in the couch. In view of this, she will be pl aced on Zosyn based on renal function. Kiser cultures have been obtained in the ER. She will also be on aspirin, Lipitor, Coreg, DuoNebs, CellCept, and Prograf as before. One dose of Solu-Medrol will b e given now and her usual prednisone dose of 20 mg to be started from tomorrow. She will be on velvet l saline at 60 mL per hour, although her BNP is elevated until she is able to take orally. She will be on aspirin and follow precautions. We will continue to closely monitor her in IMCU until patient wakes up completely. Her initial saturations were 87% on room air on arrival and is currently satura ting 96% on 2 liters nasal cannula.
[2017-12-20] MEDS: Acetaminophen 325 MG TAB PO PRN ×2 (04:10→11:12)
[2017-12-20 04:44] LABS: Anion Gap 18 mmol/L (10-20); BUN (Urea Nitrogen) 31 mg/dL (9.8-20.1); Calc. Creatinine Clearance 30 mL/min (70-130); Calcium 9.1 mg/dL (7.8-10.44); Carbon Dioxide 16 mmol/L (23-31); Chloride 111 mmol/L (98-107); Estimated GFR-MDRD 21; Glucose 110 mg/dL (80-115); Potassium 4.9 mmol/L (3.5-5.1); Sodium 140 mmol/L (136-145)
[2017-12-20 05:20] LABS: #Lymphocytes 0.3 thou/uL (1.20-3.40); #Monocytes 0.1 thou/uL (0.11-0.59); #Neutrophils 14.6 thou/uL (1.40-6.50); %Lymphocytes 1.9 % (21.0-51.0); %Monocytes 0.6 % (0.0-10.0); %Neutrophils 97.4 % (42.0-75.0); Hemoglobin 8.9 g/dL (12.0-16.0); Mean Corpuscular HGB CONC 31.6 g/dL (32.0-36.0); Mean Platelet Volume 8.3 fL (7.4-10.4); Platelet Count 184 thou/uL (130-400); RBC Distribution Width 13.8 % (11.5-14.5); Red Blood Cell (RBC) Count 2.98 mill/uL (4.20-5.40)
[2017-12-20] MEDS ORDERED: Piperacillin/Tazobactam 2.25 GM in Sodium Chloride 0.9% 100 ML IVPB SCH (06:00)
[2017-12-20] MEDS ORDERED: Arformoterol 15 MCG/2 ML NEB NEB SCH (06:30)
[2017-12-20] MEDS ORDERED: predniSONE 20 MG TAB PO SCH (08:00)
[2017-12-20] MEDS ORDERED: Carvedilol 3.125 MG TAB PO SCH (08:00)
[2017-12-20] MEDS: Heparin 5,000 UNITS/ML VIAL SC SCH (08:27)
[2017-12-20] MEDS: Mycophenolate 250 MG CAP PO SCH (08:28)
[2017-12-20] MEDS: Tacrolimus 0.5 MG CAP PO SCH (08:29)
[2017-12-20] MEDS ORDERED: Famotidine 20 MG TAB PO SCH (09:00)
[2017-12-20] MEDS ORDERED: Aspirin 81 mg Enteric Coated Tablet PO SCH (09:00)
[2017-12-20] MEDS ORDERED: FLU VACC QS2017-18 36 mo. & older 0.5 ML SYRINGE IM ONE (09:00)
[2017-12-20] MEDS ORDERED: NIFEdipine XL 30 MG TAB PO SCH (09:00)
--- NOTE | 2017-12-20 09:27 | PRG ---
DATE OF SERVICE: 12/20/2017 RENAL MEDICINE SUBJECTIVE: Ms. Park is a 62-year-old white female, who is status post cadaveric renal transplan t and admitted for near syncopal episode. Imaging of the head showed no acute intracranial abnormali ty. This morning, she is more awake and alert. The feeling is that this near syncopal episode of me ntal status change may be related to the pain medications she must have been taking at home. Please note she was discharged with Tylenol with codeine as well as with intake of bupropion. These medicat ions have been placed on hold temporarily. Her creatinine is actually stable at 2.31. She was at [facility] for several weeks due to left leg fracture. No new complaints today. PHYSICAL EXAMINATION: VITAL SIGNS: Blood pressure is 158/74 with heart rate of 78, respiratory rate 21, temperature 98.3, and pulse ox 97%. GENERAL: Noted to be awake, supine, comfortable, not in distress. SKIN: Adequate turgor. HEENT: She has slightly pale conjunctivae, anicteric sclerae. NECK: No neck mass, no carotid bruits, no JVD. CHEST: No deformities. LUNGS: Decreased breath sounds. HEART: Normal sinus rhythm. No murmurs, no gallops, no rubs. ABDOMEN: Globular, soft, nontender, no masses. EXTREMITIES: No edema, no deformities. Positive for left leg cast. MEDICATIONS: Medications of 12/20/2017 was reviewed. LABORATORY DATA: Laboratories of 12/20/2017; white count 15, hemoglobin 8.9, sodium 140, potassium 4 .9, chloride 111, carbon dioxide 16, BUN 31, creatinine 2.31, glucose 110, calcium 9.1. ASSESSMENT AND PLAN: 1. Status post cadaveric renal transplant, stable renal function. Creatinine 2.31 is near baseline. Imaging over renal allograft shows some distinct renal pathology. In addition, she has been spilli ng protein in the last several months. This patient may need to be reevaluated back by renal transpl ant program. Unclear if she will be needing any biopsy of her allograft. 2. Near syncopal episode - most likely related to her pain meds. Imaging of the brain was within no rmal. Please note also that she is mentating much better this morning. Overall, agree with current management. I will follow up this patient in the Renal Clinic.
--- NOTE | 2017-12-20 09:32 | CON ---
DATE OF CONSULTATION: 12/20/2017 CONSULTING PHYSICIAN: Dr. Gates REASON FOR CONSULTATION: Encephalopathy. HISTORY OF PRESENT ILLNESS: This is a 62-year-old female who apparently took something at home yeste rday that caused her to become unresponsive. She says it could have been Xanax, could have been Tyle nol #3, she was given some Narcan and did not improve much. She was placed in IMCU for observation o vernight. She is now fully awake, back to normal and has no complaints. PAST MEDICAL HISTORY: 1. COPD. 2. End-stage renal disease requiring renal transplant in 2005. 3. Hypertension. 4. Hyperlipidemia. 5. Coronary artery disease. 6. Chronic pain. PAST SURGICAL HISTORY: Renal transplantation, cardiac catheterization, cholecystectomy, hysterectomy , open reduction internal fixation left leg. ALLERGIES: None. SOCIAL HISTORY: A [id number] history of smoking 1 pack per day, but is currently not smoking. ALLERGIES: None. FAMILY MEDICAL HISTORY: Remarkable for Alzheimer's disease. REVIEW OF SYSTEMS: Ten point review of systems otherwise negative. MEDICATIONS PRIOR TO ADMISSION: DuoNeb, Dulcolax, Protonix, Procardia, Lopressor, Reglan, methylphen idate, folate, Coreg, budesonide nebulization solution, Brovana nebulization solution, Norvasc, Tylen ol #3, Apresoline, gemfibrozil, Lipitor, paroxetine, Prograf, Wellbutrin, aspirin, prednisone, sodium bicarbonate, CellCept and Xanax. PHYSICAL EXAMINATION: VITAL SIGNS: Temperature 98.3, pulse 78, respiration 21, O2 sat 99% on 2 liters, blood pressure 158/ 74. GENERAL: She is awake and alert, in no distress. HEENT: Unremarkable. NECK: No adenopathy, no JVD, no bruits. LUNGS: Clear without wheezing. CARDIAC: S1, S2 regular. ABDOMEN: Soft, nontender. EXTREMITIES: No edema. LABORATORY AND X-RAY FINDINGS: White blood cell count 15, hematocrit 28.3, platelet count 184. ABG at the time of admission; pH 7.28, pCO2 46, PO2 78. Chemistries: Sodium 140, potassium 4.9, chlorid e 111, CO2 16, BUN 31, creatinine 2.3, glucose 110. Chest x-ray is clear. Urinalysis showed too num erous to count white blood cells. ASSESSMENT: 1. Altered mental status probably secondary to medication overdose. 2. Urinary tract infection. 3. Currently immunosuppressed from renal transplant. RECOMMENDATIONS: 1. Treat her urinary tract infection. 2. The encephalopathy seems to have resolved. 3. Does not seem to be any active pulmonary process except for her chronic obstructive pulmonary dis ease which is currently stable. 4. She can probably be discharged home with treatment for urinary tract infection today.
[2017-12-20 11:10] VITALS: TEMP 98.4
--- NOTE | 2017-12-20 12:18 | PDOC.PN ---
- Subjective Encounter Start Date: 12/20/17 Encounter Start Time: 07:30 Subjective: awake and oriented well this am -: no sob, is moving all extremities - Objective Resuscitation Status: Resuscitation Status FULL:Full Resuscitation MAR Reviewed: Yes Vital Signs & Weight: Vital Signs (12 hours) Temp Pulse Resp BP Pulse Ox 12/20/17 11:00 98.4 F 78 22 H 167/58 H 97 12/20/17 08:28 78 12/20/17 07:49 98.3 F 78 21 H 99 12/20/17 07:27 98.3 F 78 21 H 158/74 H 97 12/20/17 06:10 77 18 161/64 H 95 12/20/17 04:02 98.1 F 82 20 124/50 L 100 12/20/17 02:12 77 12 100 Weight Weight 164 lb 9 oz I&O: 12/19/17 12/20/17 12/21/17 06:59 06:59 06:59 Intake Total 500 Output Total 2100 100 Balance -1600 -100 Result Diagrams: 12/20/17 03:40 12/20/17 03:40 Phys Exam - Physical Examination HEENT: PERRLA, moist MMs Neck: no JVD, supple Respiratory: no wheezing, no rales Cardiovascular: RRR, no significant murmur Gastrointestinal: soft, non-tender, positive bowel sounds Musculoskeletal: no edema, pulses present Neurological: non-focal, moves all 4 limbs Psychiatric: A&O x 3 Dx/Plan (1) COPD (chronic obstructive pulmonary disease) Status: Chronic Qualifiers: COPD type: chronic bronchitis (2) CAD (coronary artery disease) Code(s): I25.10 - ATHSCL HEART DISEASE OF [place] CORONARY ARTERY W/O ANG PCTRS Status: Chronic Qualifiers: Coronary Disease-Associated Artery/Lesion type: [place] artery [place] vs. transplanted heart: [place] heart Associated angina: without angina Qualified Code(s): I25.10 - Atherosclerotic heart disease of [place] coronary artery without angina pectoris (3) CKD (chronic kidney disease) stage 3, GFR 30-59 ml/min Status: Chronic (4) H/O kidney transplant Status: Chronic (5) Hypertension Code(s): I10 - ESSENTIAL (PRIMARY) HYPERTENSION Status: Chronic Qualifiers: Hypertension type: essential hypertension Qualified Code(s): I10 - Essential (primary) hypertension (6) Altered mental state Code(s): R41.82 - ALTERED MENTAL STATUS, UNSPECIFIED Status: Resolved Comment: likely due to medications - Plan hemostable -: dc pt home -: to f/u with , pcp and [facility] as before -: counselled reg judicious use of anxiety and pain meds * .
[2017-12-20 15:04] VITALS: BP 161/63
--- NOTE | 2017-12-20 19:34 | DIS ---
DATE OF ADMISSION: 12/19/2017 DATE OF DISCHARGE: 12/20/2017 DISCHARGE DISPOSITION: To home. PRIMARY DISCHARGE DIAGNOSIS: Altered mental state, likely due to medications. SECONDARY DISCHARGE DIAGNOSES: Chronic kidney disease, stage 3; history of renal transplant; coronar y artery disease; chronic obstructive pulmonary disease; hypertension; left tibia fibula fracture wit h nonweightbearing status and wheelchair bound from October. PROCEDURES DONE DURING HOSPITALIZATION: CT brain showed no acute intracranial abnormalities. Chest x-ray, no acute cardiopulmonary abnormalities. Urine culture no growth. Blood cultures x2 no growth . Influenza A and B antigens were negative. Discharge white count of 15, H&H 9 and 28, platelet cou nt is 184 with 97% neutrophils. Discharge BUN and creatinine are 31 and 2.3. BNP was 1355. Troponi n I was 0.07. Urine drug screen was positive for opiates, tricyclics and benzodiazepines. DISCHARGE MEDICATIONS: Norvasc 5 mg p.o. daily, Brovana nebulizer twice daily, aspirin 81 mg p.o. da johanna, Lipitor 40 mg p.o. at bedtime, Pulmicort inhaler twice daily, bupropion XL 150 mg p.o. daily, Co reg 3.125 mg p.o. twice daily, folic acid 1 mg daily, gemfibrozil 600 mg p.o. twice daily, hydralazin e 25 mg p.o. 3 times daily, DuoNebs q.4 hourly p.r.n., Levaquin 250 mg p.o. daily for another 4 days for UTI, methylphenidate 10 mg daily, Lopressor 50 mg twice daily, CellCept 500 mg twice daily, Proca rdia-XL 30 mg daily, Protonix 40 mg daily, paroxetine 40 mg daily, prednisone 20 mg daily, sodium bic arbonate 650 mg p.o. at bedtime, Prograf 2.5 mg p.o. twice daily. ALLERGIES: LATEX and PHENERGAN. DISCHARGE PLAN: The patient to follow up with primary care physician in 1 week. BRIEF COURSE DURING HOSPITALIZATION: The patient initially got admitted after she was found to be un responsive sitting on the couch yesterday evening by her . Her urine drug screen was positive for benzodiazepines, opiates, and tricyclics. also mentioned that there was vomitus around her. In view of this, she was placed on Zosyn. Ten hours into hospitalization, the patient's mentat ion completely came back to normal. She is fully oriented this morning and responding well to questi ons. Likely her acute altered mental status was due to medications that she was on. The patient is on multiple medications and polypharmacy. She was counseled with regards to judicious use of anxioly tics and pain medications. She needs to follow up with Dr. Knutson for her history of left tibia fib ular fracture with surgical repair done in October as before and primary care physician in 1 week. The patient was also evaluated by Dr. Julio and needs to have a close followup with him and her transpl ant surgeon's. She is otherwise hemodynamically stable and will be shortly discharged home. Please see a [id number] documentation on [facility] for the day of discharge.
== END 2017-12-20 13:06 | disposition home or self-care (01) | DRG 917 ==
LOC: ERS 14:57 → IMCU/EMU 17:21
PROVIDERS: ADMIT Internal Medicine; ATTEND Internal Medicine
DX: T40.601A Poisoning by unspecified narcotics, accidental (unintentional), initial encounter (principal); G92 Toxic encephalopathy; F03.90 Unspecified dementia, unspecified severity, without behavioral disturbance, psychotic disturbance, mood disturbance, and anxiety; N18.3 Chronic kidney disease, stage 3 (moderate); Z94.0 Kidney transplant status; J44.0 Chronic obstructive pulmonary disease with (acute) lower respiratory infection; N39.0 Urinary tract infection, site not specified; T42.4X1A Poisoning by benzodiazepines, accidental (unintentional), initial encounter; T43.011A Poisoning by tricyclic antidepressants, accidental (unintentional), initial encounter; I25.10 Atherosclerotic heart disease of native coronary artery without angina pectoris; E78.5 Hyperlipidemia, unspecified; S82.402D Unspecified fracture of shaft of left fibula, subsequent encounter for closed fracture with routine healing; I12.9 Hypertensive chronic kidney disease with stage 1 through stage 4 chronic kidney disease, or unspecified chronic kidney disease; Z87.891 Personal history of nicotine dependence; Z88.8 Allergy status to other drugs, medicaments and biological substances; Z91.040 Latex allergy status; Z99.3 Dependence on wheelchair; Z86.73 Personal history of transient ischemic attack (TIA), and cerebral infarction without residual deficits; Z81.8 Family history of other mental and behavioral disorders; X58.XXXD Exposure to other specified factors, subsequent encounter
CPT/HCPCS: 36415; 36416; 70450; 71045; 80048; 80053; 80306; 80307; 81003; 81015; 82140; 82553; 82805; 83605; 83690; 83735; 83880; 84443; 84484; 85025; 85610; 87040; 87086; 93005; 94640; A4353; G8978-GP-CJ; G8979-GP-CJ; J0295; J1940; J1956; J2310; J2543; J2930; J3475; J7050; J7507; J7517; J7620

== ENCOUNTER 2018-07-07 01:06 | Inpatient (IN) | payer MEDICARE ==
[2018-07-07 01:31] LABS: #Basophils 0.1 thou/uL (0.0-0.2); #Eosinphils 0.1 thou/uL (0.0-0.7); #Lymphocytes 1.5 thou/uL (1.20-3.40); #Neutrophils 9.5 thou/uL (1.40-6.50); %Basophils 0.5 % (0.0-1.0); %Eosinophils 0.9 % (0.0-10.0); %Lymphocytes 12.2 % (21.0-51.0); %Monocytes 7.8 % (0.0-10.0); %Neutrophils 78.5 % (42.0-75.0); Hemoglobin 12.1 g/dL (12.0-16.0); Mean Corpuscular HGB CONC 31.8 g/dL (32.0-36.0); Mean Corpuscular Hemoglobin 29.3 pg (27.0-31.0); Mean Platelet Volume 7.8 fL (7.4-10.4); Platelet Count 244 thou/uL (130-400); RBC Distribution Width 13.8 % (11.5-14.5); Red Blood Cell (RBC) Count 4.15 mill/uL (4.20-5.40); White Blood Cell (WBC) Count 12.1 thou/uL (4.8-10.8)
[2018-07-07 01:50] LABS: CKMB 3.2 ng/mL (0-6.6); Troponin I 0.036 ng/mL (< 0.028)
[2018-07-07 02:02] LABS: ALT (SGPT) 10 U/L (8-55); AST (SGOT) 21 U/L (5-34); Albumin 3.6 g/dL (3.4-4.8); Alkaline Phosphatase 175 U/L (40-150); Anion Gap 19 mmol/L (10-20); BUN (Urea Nitrogen) 42 mg/dL (9.8-20.1); Bilirubin, Total 0.2 mg/dL (0.2-1.2); Calc. Creatinine Clearance 0 mL/min (70-130); Calcium 8.9 mg/dL (7.8-10.44); Carbon Dioxide 21 mmol/L (23-31); Chloride 100 mmol/L (98-107); Estimated GFR-MDRD 14; Globulin 2.4 g/dL (2.4-3.5); Glucose 97 mg/dL (80-115); Potassium 5.8 mmol/L (3.5-5.1); Sodium 134 mmol/L (136-145)
[2018-07-07 02:24] LABS: Actual Bicarbonate (HCO3a) 28.1 mEq/L (22-28); CO2 Tension 78.4 mmHg (35.0-45.0); O2 Tension (PaO2) 282.3 mmHg (> 80.0); pH, Arterial 7.17 (7.35-7.45)
[2018-07-07 02:25] LABS: Analyzer IN Cardio ER; Calcium, Ionized 1.2 mmol/L (1.12-1.30); Hemoglobin (Hb) 12.2 g/dL (12.0-16.0); Puncture Site LBA
[2018-07-07] MEDS ORDERED: hydrALAZINE 20 MG/ML VIAL ONE (03:07)
[2018-07-07] MEDS ORDERED: Aspirin 300 MG Suppository ONE (03:17)
[2018-07-07 03:18] LABS: INR-International Normal Ratio 0.9; Prothrombin Time 11.9 SEC (12.0-14.7)
[2018-07-07 03:20] LABS: Actual Bicarbonate (HCO3a) 22.5 mEq/L (22-28); Base Excess (BEa) -5.4 mEq/L (-2.0 to +3.0); O2 Tension (PaO2) 82.1 mmHg (> 80.0); pH, Arterial 7.23 (7.35-7.45)
[2018-07-07 03:21] LABS: Analyzer IN Cardio ER; Calcium, Ionized 1.1 mmol/L (1.12-1.30); Puncture Site RRA
[2018-07-07 03:22] LABS: PTT 22.5 SEC (22.9-36.1)
[2018-07-07 03:31] LABS: Bilirubin Negative (Negative); Blood, Urine Small (Negative); Clarity CLOUDY (Clear); Glucose, Urine (Dipstick) Negative (Negative); Leukocyte Small (Negative); Nitrite Positive (Negative); Protein, Urine (Dipstick) > or equal to 300 mg/dL (Neg-Trace); Specific Gravity, Urine 1.017 (1.002-1.036); Urobilinogen 0.2 mg/dL (0.2-1.0); pH, Urine 6.5 (5.0-9.0)
[2018-07-07 03:33] LABS: Bacteria/HPF None Seen HPF (None Seen); Hyaline Casts/LPF 4-6 HYALINE CAST LPF (0-3 Hyaline); Pathc Cast-AUWi Flag 1.45 (0-2.49); Squamous Epithelial 0-3 HPF (0-3)
[2018-07-07 03:52] LABS: Troponin I 0.038 ng/mL (< 0.028)
[2018-07-07 04:13] VITALS: BMI 28.9
[2018-07-07] MEDS: cefTRIAXone\\ROCEPHIN 1 GM in Sodium Chloride 0.9% 100 ML IVPB SCH (06:14)
--- NOTE | 2018-07-07 06:43 | HP ---
CHIEF COMPLAINT: Altered mental status. HISTORY OF PRESENT ILLNESS: The patient is a 62-year-old female with a history of end-stage renal di kalpana who was previously on peritoneal dialysis who subsequently received a kidney transplant. She i s followed by Dr. Sumanth hernandez and has had some worsening renal function. The patient's repor ts the last time they saw and he was fairly gee with them as they were not necessarily being compli ant with what they needed to do in order to help the kidney function properly. She has been trying t o push some fluid since that time. Patient's reports that they smoke constantly and then he feels like that there is probably a good deed in the problem. Patient's reports that she sta rted experiencing these altered symptoms with progressive somnolence and less responsiveness associat ed with some generalized twitching, jerking movements that were progressive throughout the day as wel l. Patient was having some trouble balancing her functioning well. The patient herself is unable to give much history at this particular time. REVIEW OF SYSTEMS: The patient is unable to give review of systems. PAST MEDICAL HISTORY: Notable for end-stage renal disease, previously on peritoneal dialysis and sub sequently with renal transplant in 2005. She has history of TIAs, hyperlipidemia, congestive heart f ailure, dementia, COPD. She has a history of renal transplant, heart catheterization, cholecystectom y, hysterectomy, and left tib-fib surgery. FAMILY HISTORY: Cannot be obtained from the patient. Prior records indicate there is a history of e stanley heart disease in patient's family. Her father had some dementia. SOCIAL HISTORY: Patient is significant smoker, exact amount was not quantifiable, but the re ports she will sit out on the porch for opiate and smokes 15 cigarettes in a row. No alcohol or drug use. She is and her surrogate decision maker is her . She is a DNR/DNI. ALLERGIES: LATEX, PROMETHAZINE. MEDICATIONS: Patient cannot give her medication list and her is not sure. He has a list hussein t he will bring when he goes outside to smoke again. The list from her previous discharge includes p rednisone 20 mg every day, hydralazine 25 mg t.i.d., Prograf 2.5 mg b.i.d., sodium bicarbonate 650 mg p.o. at bedtime, Protonix 40 mg every day, paroxetine 40 mg p.o. daily, eye lubricant 1 drop b.i.d., Procardia-XL 30 mg every day, mycophenolate 500 mg b.i.d., metoprolol 50 mg b.i.d., metoclopramide 1 0 mg b.i.d., methylphenidate 10 mg every day, DuoNeb q.4 hours, gemfibrozil 600 mg b.i.d., Folate 1 m g p.o. daily, Coreg 3.125 b.i.d., calcium 1-2 tabs p.o. q.6 hours, Pulmicort nebs b.i.d. p.r.n., Wel lbutrin-XL 150 every day, Dulcolax 10 mg p.r.n., Lipitor 40 mg at bedtime, aspirin 81 mg every day, Brovana 15 mcg b.i.d., Norvasc 5 mg every day. PHYSICAL EXAMINATION: VITAL SIGNS: Temperature is 98.7, pulse 85, respirations 17, O2 sat 99% on BiPAP, BP is 164/97. GENERAL APPEARANCE: Age appropriate female. She actually may appear slightly older than her stated age. She is currently wearing BiPAP and seems to be tolerating it fairly well. She is somnolent. S he will occasionally awaken and speak briefly, but appropriately. HEENT: Pupils are constricted. NECK: Supple and symmetric with no JVD. HEART: Regular rate and rhythm with no murmurs, gallops or rubs. LUNGS: Significantly diminished throughout both lung keene. ABDOMEN: Soft, mildly diffusely tender with some increased bowel sounds. There is some old scarring from the previous peritoneal dialysis. SKIN: Warm and dry without edema. LABORATORY DATA AND IMAGING DATA: White count 12.1, hemoglobin 12.1, platelets 244,000. PT is 11.9 and INR 0.9. Blood gas; pH 7.17, pCO2 78.4, bicarbonate 28.1, pO2 is 282. Sodium 134, potassium 5.8 , chloride 100, CO2 is 21, BUN 42, creatinine 3.38. LFTs normal. Troponin 0.36. Urinalysis shows s mall blood, positive nitrites, small leukocyte esterase, greater than 50 white cells. Chest x-ray ap pears to be generally normal. Official radiology read pending. CT head was reportedly normal. IMPRESSION AND PLAN: 1. Altered mental status. This could be due to underlying urinary tract infection, COPD exacerbatio n with acidosis or uremia. The patient does have some generalized twitching and jerking which could go along with any of these as well. 2. Urinary tract infection. We will cover with Rocephin. The patient has an elevated white blood c ell count and altered mental status along with affected appearing urine. We will follow up on jefferson fermin. 3. Chronic obstructive pulmonary disease exacerbation with hypercapnia and acidosis. The patient is on BiPAP. We will recheck that and consult Pulmonology for further assistance. We will keep the tin figueroa on her p.o. steroids. We will keep nebulizers available. 4. Acute on chronic kidney disease. The patient has a history of the transplanted kidney from 2005. Her renal function has been slowly getting worse of weight. We will consult Dr. Julio. We will cont inue with her usual antirejection medications. 5. Hyperkalemia. This may be secondary to the acidosis. We will recheck that now. If she continue s to be hyperkalemic, we will consider Kayexalate. 6. History of transplanted kidney, as stated above. Continue with antirejection medications. 7. Hypertension. We will continue with her usual home medications.
[2018-07-07 07:20] LABS: Anion Gap 17 mmol/L (10-20); BUN (Urea Nitrogen) 40 mg/dL (9.8-20.1); Calc. Creatinine Clearance 19 mL/min (70-130); Calcium 8.7 mg/dL (7.8-10.44); Carbon Dioxide 18 mmol/L (23-31); Chloride 104 mmol/L (98-107); Estimated GFR-MDRD 15; Glucose 93 mg/dL (80-115); Potassium 5.4 mmol/L (3.5-5.1); Sodium 134 mmol/L (136-145)
[2018-07-07 07:26] LABS: Troponin I 0.034 ng/mL (< 0.028)
--- NOTE | 2018-07-07 08:00 | CT ---
PRELIMINARY REPORT/[facility]/EMERGENTY AFTER-HOURS PROCEDURE Addendum created by Abundio Duarte MD on 07/07/2018 1:34 AM Central Time ([place] & [place]) Report of this case was discussed with Lani Steele at 1:30 AM CDT, 07/07/2018. The findings were a cknowledged and understood. Initial Report created on 07/07/2018 1:23 AM Central Time ([place] & [place]) CT Head Without Intravenous Contrast CLINICAL HISTORY: 62 years old, female; Signs and symptoms; Speech disturbance; Slurred speech; Patient HX: stroke al ert f62, last seen normal 1300, slurred speech, no facial droop, generalized weakness TECHNIQUE: Axial computed tomography images of the head/brain without intravenous contrast. COMPARISON: No relevant prior studies available. FINDINGS: No definite acute skull fracture. Opacification of the included upper right maxillary sinus. Included paranasal sinuses otherwise appear essentially clear. No acute intracranial hemorrhage or mass effect. Ventricle size is normal for age. There is very mild, relatively symmetrical decreased attenuation in the periventricular white matter, likely from microvascular disease. No definite acute infarct by CT. MRI could be more sensitive/specific for an acute infarct if clinically indicated. IMPRESSION: No acute intracranial bleed or mass effect. Changes of microvascular disease. No definite acute infarct by CT, see above. Thank you for allowing us to participate in the care of your patient. Dictated and Authenticated by: Abundio Duarte MD 07/07/2018 1:23 AM Central Time ([place] & [place]) CT HEAD NONCONTRAST: Date: 07-07-18 Performed on emergency basis at 0110 hours. History: Altered mental status. Speech disturbance. Comparison: 12-19-17 FINDINGS: I agree with the preliminary report by Dr. Rivero from [facility]. No acute intracranial abnorm alities are demonstrated on noncontrast CT head. Code QA POS: [facility]
--- NOTE | 2018-07-07 08:19 | RAD ---
PORTABLE CHEST: HISTORY: Dyspnea. COMPARISON: 12/19/2017 FINDINGS: Heart size appears borderline enlarged, considering the portable technique. The mediastinal structu res are unremarkable. The lungs are clear of infiltrates. IMPRESSION: Borderline to minimal cardiomegaly. POS: [facility]
[2018-07-07] MEDS: Heparin 5,000 UNITS/ML VIAL SC SCH ×3 (10:11→19:19)
[2018-07-07] MEDS: hydrALAZINE 20 MG/ML VIAL SLOW IVP PRN ×3 (10:11→19:19)
[2018-07-07] MEDS: Sodium Chloride 0.9% 1,000 ML IV SCH ×2 (10:12→19:19)
[2018-07-07] MEDS: predniSONE 20 MG TAB PO SCH (10:20)
--- NOTE | 2018-07-07 10:35 | CON ---
DATE OF CONSULTATION: 07/07/2018 HISTORY OF PRESENT ILLNESS: Ms. Park is a 62-year-old white female with known history of status post ESRD, status post renal transplant, admitted for mental status change. I was talking with the h usband regarding the patient and she was awake, alert yesterday morning. However, at the end of the day, she became more confused. She has been following up with her pain specialist. He tells me she is given intraarticular injections at her back. I reviewed the medications, was also taking some Rit ofe-like drugs. In addition, she has taken Tylenol with codeine as well as gabapentin. This medica tion may be precipitating the confusion. She is also complaining of some tremors. A CAT scan of the brain was done which showed no acute intracranial abnormality. We are being consulted for her renal transplant. Her creatinine is noted to be elevated today from her baseline. REVIEW OF SYSTEMS: Not obtainable since the patient is sleepy, but based on the medical records, she had some tremors, positive for confusion. No nausea, no vomiting, no diarrhea, no constipation, no productive cough, no fever or chills. HOME MEDICATIONS: Tylenol with codeine as directed, Gabapentin, dose unknown, prednisone 20 mg q.a.m ., hydralazine 25 mg p.o. t.i.d., Prograf 2.5 mg p.o. b.i.d., sodium bicarbonate 650 mg at bedtime, P rotonix 40 mg daily, paroxetine 40 mg daily, nifedipine 30 mg daily, CellCept 500 mg p.o. b.i.d., met oprolol 50 mg p.o. b.i.d., methylphenidate 10 mg daily, Levaquin 250 mg daily, DuoNeb q.4 hours p.r.n ., gemfibrozil 600 mg b.i.d., folic acid 1 mg once a day, Coreg 3.125 mg p.o. b.i.d., Pulmicort neb s olution as directed, Wellbutrin-XL 150 mg once a day, atorvastatin 40 mg at bedtime, aspirin 81 mg da johanna, amlodipine 5 mg daily. PAST MEDICAL HISTORY: 1. Hypertension. 2. Depression. 3. Attention deficit disorder. 4. Hyperlipidemia. 5. Status post renal transplant. 6. Chronic obstructive pulmonary disease. 7. The patient has also history of ? of noncompliance. 8. In addition, she also is status post UTI, migraine history of gastroparesis. Status post non-Q-w ave myocardial infarction. History of dysplastic colon. COPD, status post pancreatitis, restless le g syndrome. PAST SURGICAL HISTORY: 1. Status post, cadaveric renal transplant at [facility]. 2. Status post ERCP. 3. Status post colonoscopy. 4. Status post AV fistula placement. 5. Status post cardiac catheterization. 6. Status post surgery of the right kidney. 7. Status post vaginal hysterectomy. 8. Status post PD catheter placement. 9. Status post cuffed dialysis catheter placement. 10. Status post leg surgery. 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 Status post multiple blood transfusions. No alcohol i ntake, no IV drug abuse. FAMILY HISTORY: No family history of ESRD. ALLERGIES: LATEX AND adverse reaction to PHENERGAN. TRAUMA: Status post fall with left tibia and fibula comminuted fracture. IMMUNIZATIONS: Up to date. HOSPITALIZATIONS: Please see past medical history. PHYSICAL EXAMINATION: VITAL SIGNS: Blood pressure shows 164/89 with a heart rate of 80, respiratory rate 15, temperature 9 8.5, pulse ox 98%, noted to be on BiPAP. GENERAL: The patient is sleepy, but arousable, currently noted on BiPAP. HEENT: Slightly pale conjunctivae, anicteric sclerae. NECK: No neck mass, no carotid bruits, no JVD. CHEST: No deformities. LUNGS: Decreased breath sounds. HEART: Normal sinus rhythm. No murmur, gallops or rubs. ABDOMEN: Globular, soft, nontender, no masses. Renal allograft is nontender. EXTREMITIES: No edema. NEUROLOGIC: The patient is sleepy, but arousable. LABORATORY: 07/07/2018 - White count 12.1, hemoglobin 12.1. Sodium 134, chloride 104, potassium 5.4 , carbon dioxide 18, BUN 40, creatinine 3.21, GFR 15 mL per minute. Calcium 8.7. 07/07/2018 - 1:23 a.m. creatinine 3.38. 06/06/2018 - Creatinine 2.86. 12/20/2017 - Creatinine 2.31. Albumin is noted to be 3.6. CT scan of the brain, no acute intracranial abnormality. 07/07/2018 - Chest x-ray; no CHF. ASSESSMENT AND PLAN: 1. Acute kidney injury - consider a possible prerenal component. Consider starting the patient on n ormal saline at 100 mL per hour. 2. Status post cadaveric renal transplant. I would suggest we resume back her Prograf at 2.5 mg tab b.i.d. and her CellCept at 500 mg p.o. b.i.d. 3. Mental status changes/tremors - I suspect this could be drug induced from a combination of the pa in medications taken as well as the Ritalin and gabapentin. Continue to observe. If needed, we can get a neurological consultation. Overall, I agree with current management. No indication for any dialytic intervention.
[2018-07-07 12:21] LABS: Lactic Acid 0.9 mmol/L (0.5-2.2)
--- NOTE | 2018-07-07 19:10 | CON ---
DATE OF CONSULTATION: 07/07/2018 SERVICE: Pulmonary Medicine. REASON FOR CONSULTATION: IMCU patient. HISTORY OF PRESENT ILLNESS: The patient is a 62-year-old white female with past medical history sign ificant for benzodiazepine and narcotic use. She tells me today that occasionally, she will take a l ittle extra medication. Recently, she has had increasing pain and anxiety issues and so this has pro mpted her to take more medication than she is actually prescribed. Ultimately, she developed altered mentation and was subsequently brought to the emergency department. She was found to have an acute kidney injury with elevated BUN as well as hypercapnic respiratory failure. She was placed on BiPAP. Her ABG improved over a short period of time, but the patient has been slow to come around. She is difficult to arouse currently. She will wake up with a little bit of stimulation and follow command s. She moves all 4 extremities. That being said, without touching her for less than 3 seconds, she drifts back off to sleep. I really cannot conduct a good review of systems. She demonstrate general ized asterixis consistent with her metabolic process. PAST MEDICAL HISTORY: 1. End-stage renal disease, status post renal transplant in 2005, previously on peritoneal dialysis. 2. History of transient ischemic attacks. 3. Dyslipidemia. 4. Hypertension. 5. Chronic systolic heart failure. 6. Dementia. 7. COPD, possible. PAST SURGICAL HISTORY: 1. Renal transplant. 2. Cardiac catheterization. 3. Cholecystectomy. 4. Hysterectomy. 5. Left hip surgery. FAMILY HISTORY: Noncontributory. SOCIAL HISTORY: The patient smokes more than a pack on a daily basis. The denies any alcoho l or illicit drug use in the patient. She is currently unemployed/retired. She was in the [employer] ie. She has a . She is currently a DNI/DNR. ALLERGIES: LATEX, PROMETHAZINE. MEDICATIONS: List of her inpatient medications were reviewed. A couple of small updates were made. REVIEW OF SYSTEMS: This cannot be obtained as the patient is currently obtunded. PHYSICAL EXAMINATION: VITAL SIGNS: Afebrile, pulse 95, blood pressure 162/68, respirations 20, saturation 97% on 2 liters nasal cannula. GENERAL: The patient is awake, alert, in no apparent distress. LUNGS: Rhonchi present. There is prolonged expiratory phase with wheezing. No crackles are appreci ated. She demonstrates Kaleb-Franklin respiratory pattern of breathing when I turned the BiPAP down. HEENT: Normocephalic, atraumatic. Sclerae are white. Conjunctivae are pink. Oral mucosa is moist without lesions. HEART: Normal rate, regular. ABDOMEN: Soft, nontender, nondistended. Bowel sounds are positive. MUSCULOSKELETAL: No cyanosis or clubbing. There is no pitting in the bilateral lower extremities. NEUROLOGIC: Grossly nonfocal. She demonstrates diffuse asterixis, though she is moving bilateral up per and lower extremities. Pupils are equal, round and reactive to light, but a little small. LABORATORY DATA: WBC 12.1, hemoglobin 12.1, platelets 244,000. Neutrophils are 75%. INR 0.9. PH 7 .17, pCO2 80, pO2 282 on 100% nonrebreather at that time. Creatinine 3.21, BUN 40, bicarbonate 18. Potassium 5.4, sodium 134. Troponins are stable at 0.034. Liver function studies are essentially un remarkable except for marginally elevated alkaline phosphatase. Urinalysis is positive for white blo od cells and nitrites. No bacteria, however, are seen. IMAGIN. CT of the brain demonstrates no acute cardiopulmonary abnormality. 2. Chest x-ray demonstrates minimal cardiomegaly. No acute cardiopulmonary abnormalities otherwise identified. ASSESSMENT: 1. Acute hypoxic and hypercapnic respiratory failure. 2. Metabolic encephalopathy. 3. Overuse of benzodiazepines and narcotic medications. 4. Kaleb-Franklin respiratory pattern of breathing, likely secondary to narcotic and/or benzodiazepin e use. 5. Generalized asterixis. DISCUSSION AND PLAN: I sat at bedside and tried to deescalate her BiPAP. Unfortunately, she did not tolerate it. I have made multiple adjustments to the BiPAP to maximize comfort. I would like to we an as much oxygen away as tolerated as this will be a harbinger of increasing hypercapnia. If she de saturates, I would like to know about that. She is currently a DNI/DNR, but current BiPAP setting sh ould be adequate to comfortably support her. Her mentation is already improving, slowly. My expecta tions are that she is going to start to wake up over the next 24 hours. We will make certain that kita pritchard is not on any centrally acting medications that could potentially propagate confusional state. CRITICAL CARE TIME: 30 minutes.
[2018-07-08] MEDS: hydrALAZINE 20 MG/ML VIAL SLOW IVP PRN ×4 (02:04→18:21)
[2018-07-08 05:26] LABS: Anion Gap 18 mmol/L (10-20); BUN (Urea Nitrogen) 42 mg/dL (9.8-20.1); Calc. Creatinine Clearance 21 mL/min (70-130); Calcium 9.4 mg/dL (7.8-10.44); Carbon Dioxide 18 mmol/L (23-31); Chloride 105 mmol/L (98-107); Estimated GFR-MDRD 16; Glucose 98 mg/dL (80-115); Potassium 5.1 mmol/L (3.5-5.1); Sodium 136 mmol/L (136-145)
[2018-07-08] MEDS: cefTRIAXone\\ROCEPHIN 1 GM in Sodium Chloride 0.9% 100 ML IVPB SCH (05:33)
[2018-07-08] MEDS: Sodium Chloride 0.9% 1,000 ML IV SCH ×2 (08:05→17:06)
[2018-07-08] MEDS: Heparin 5,000 UNITS/ML VIAL SC SCH ×3 (08:07→20:32)
[2018-07-08] MEDS: predniSONE 20 MG TAB PO SCH ×2 (08:08→14:48)
[2018-07-08] MEDS ORDERED: Non-Formulary Item 1 EACH (Sodium Bicarbonate [Sodium Bicarbonate] 650 MG) PO SCH (09:00)
--- NOTE | 2018-07-08 09:21 | PRG ---
DATE OF SERVICE: 07/08/2018 SERVICE: Pulmonary Medicine. INTERVAL HISTORY: The patient is doing fine from a respiratory standpoint. She denies any current c hest pain, nausea, vomiting, fevers or chills. Her mentation is actually improving quite a bit. She will stay awake for up to 8-10 seconds without stimulation, but then she will once again drift off b ack to sleep. She continues to demonstrate fairly significant asterixis throughout. LABORATORY DATA: Creatinine 3.01, BUN 42. Anion gap of 18, bicarbonate 18. Basic metabolic profile is otherwise unremarkable. Lactate is unremarkable. Creatinine continues to gently downtrend to 3. 0. ASSESSMENT: 1. Acute hypoxic and hypercapnic respiratory failure. 2. Metabolic encephalopathy. 3. Suspicion of polysubstance drug overdose with narcotic, and benzodiazepine. 4. Kaleb-Franklin respiratory pattern under the influence of previous medications, improving. 5. Generalized asterixis. DISCUSSION AND PLAN: We will put her on some nebulized medications to help open up her lungs. She i s wheezing just a touch today. That being said, her air movement is much improved. She will remain in the IMCU until she no longer requires the BiPAP. If she becomes increasingly somnolent, we will o bviously put her back on the BiPAP, we will increase her breaks as tolerated. I will get a stat ammo brittney. If this is elevated, lactulose will be initiated. Pulmonary Critical Care will continue to fol low along while she remains in this location. Repeat laboratories will be performed in the morning.
--- NOTE | 2018-07-08 10:07 | PRG ---
DATE OF SERVICE: 07/08/2018 SUBJECTIVE: Ms. Park is a 62-year-old white female status post cadaveric renal transplant, admit michelle for mental status change. Review of her medications shows she is taking several medications that can affect her mentation. There are now off. There are consulted for followup of her renal transpl antation. She most likely has superimposed prerenal azotemia. She is on gentle IV hydration. Elo pritchard note she initially came with a creatinine of 3.38 and is now currently at 3.01. We will plan to co ntinue the current immunosuppressive regimen. She is off all her sedatives. PHYSICAL EXAMINATION: GENERAL APPEARANCE: She is still noted to be sleeping, groggy, but arousable. VITAL SIGNS: Blood pressure is noted at 179/69, heart rate 108, respiratory rate 22, temperature 97. 8, pulse ox 97%. GENERAL: Noted to be sleepy, but arousable, confused, not in distress. SKIN: Adequate turgor. HEENT: She has pinkish conjunctivae, anicteric sclerae. NECK: No neck mass, no carotid bruits, no JVD. CHEST: No deformities. LUNGS: Clear breath sounds. No wheezing, no crackles. HEART: Normal sinus rhythm. No murmurs, no gallops, no rubs. ABDOMEN: Globular, soft, nontender, no masses. EXTREMITIES: No edema, no deformities. MEDICATIONS: Medications of 07/08/2018 was reviewed. LABORATORY DATA: Laboratories of 07/08/2018; sodium 136, potassium 5.1, chloride 105, carbon dioxide 18, BUN 42, creatinine 3.01, glucose 98, calcium 9.4. On 07/07/2018, hemoglobin 12.1, white count 12.1. ASSESSMENT AND PLAN: 1. Acute kidney injury on top of her renal transplant - superimposed prerenal azotemia. Continuing gentle volume hydration. Slightly improved creatinine. No indication for any dialytic intervention. 2. Status post renal transplant - continue current immunosuppressive regimen. No changes to be made . 3. Mental status change - this is again most likely drug induced. Off her gabapentin, alprazolam an d tizanidine. Overall, continue current management.
--- NOTE | 2018-07-08 11:13 | PDOC.PN ---
- Subjective Encounter Start Date: 07/08/18 Encounter Start Time: 09:50 -: old records requested/rev Pt seen and exmained, chart reviewed in its entirety, this is my first visit with this patient Admitted for AMS, FATMATA. Hx cadaveric renal transplant, after dicussion with Dr Julio, he thinks pt got dehydrated, went into FATMATA and has been retaining her multiple sedating medications she takes. he doubts rejecdtion Discussed with nursing, will place DFT for meds until more awake, continue IV fluids and manager contracting time to wake up ROS nor obtianable. pt wakes up says 1-2 words, then falls back to sleep - Objective Resuscitation Status: Resuscitation Status DNR:Do Not Resuscitate MAR Reviewed: Yes Vital Signs & Weight: Vital Signs (12 hours) Temp Pulse Resp BP BP Pulse Ox 07/08/18 11:09 99.0 F 104 H 22 H 190/55 H 97 07/08/18 07:45 97.8 F 108 H 22 H 97 07/08/18 07:33 97.8 F 108 H 22 H 179/69 H 97 07/08/18 03:52 98.3 F 99 18 167/65 H 95 07/08/18 02:36 102 H 22 H 131/66 95 07/08/18 02:04 95 218/78 H 07/08/18 00:57 92 16 95 07/07/18 23:57 98.2 F 90 18 178/78 H 94 L Weight Weight 149 lb 4 oz I&O: 07/07/18 07/08/18 07/09/18 06:59 06:59 06:59 Intake Total 1300 Output Total 475 Balance 825 Result Diagrams: 07/07/18 01:23 07/08/18 04:48 Radiology Reviewed by me: Yes EKG Reviewed by me: Yes Phys Exam - Physical Examination Constitutional: NAD HEENT: PERRLA, moist MMs, sclera anicteric, oral pharynx no lesions Neck: no nodes, no JVD, supple, full ROM Respiratory: no wheezing, no rales, no rhonchi, clear to auscultation bilateral Cardiovascular: RRR, no significant murmur, no rub Gastrointestinal: soft, non-tender, no distention, positive bowel sounds Musculoskeletal: no edema Neurological: moves all 4 limbs Lymphatic: no nodes Skin: no rash, normal turgor, cap refill <2 seconds Dx/Plan (1) Toxic metabolic encephalopathy Code(s): G92 - TOXIC ENCEPHALOPATHY Status: Acute Comment: secondary to normal home med retention in setting of FATMATA. (2) FATMATA (acute kidney injury) Code(s): N17.9 - ACUTE KIDNEY FAILURE, UNSPECIFIED Status: Acute Comment: improving f/u renal plan (3) Mild protein-calorie malnutrition Code(s): E44.1 - MILD PROTEIN-CALORIE MALNUTRITION Status: Chronic (4) Asthma Code(s): J45.909 - UNSPECIFIED ASTHMA, UNCOMPLICATED Status: Chronic (5) CAD (coronary artery disease) Code(s): I25.10 - ATHSCL HEART DISEASE OF [place] CORONARY ARTERY W/O ANG PCTRS Status: Chronic Qualifiers: Coronary Disease-Associated Artery/Lesion type: [place] artery [place] vs. transplanted heart: [place] heart Associated angina: without angina Qualified Code(s): I25.10 - Atherosclerotic heart disease of [place] coronary artery without angina pectoris (6) COPD (chronic obstructive pulmonary disease) Status: Chronic Qualifiers: COPD type: chronic bronchitis (7) Chronic renal allograft nephropathy Code(s): T86.11 - KIDNEY TRANSPLANT REJECTION Status: Chronic (8) H/O kidney transplant Status: Chronic (9) Hypertension Code(s): I10 - ESSENTIAL (PRIMARY) HYPERTENSION Status: Chronic Qualifiers: Hypertension type: essential hypertension Qualified Code(s): I10 - Essential (primary) hypertension (10) Immunosuppressed status Code(s): D89.9 - DISORDER INVOLVING THE IMMUNE MECHANISM, UNSPECIFIED Status: Chronic - Plan * .
[2018-07-08] MEDS: Sodium Bicarbonate Tab 325 MG TAB PO SCH ×4 (14:44→20:31)
[2018-07-08] MEDS: Tacrolimus 1 MG CAP PO SCH ×2 (14:45→20:31)
[2018-07-08] MEDS: Mycophenolate 250 MG CAP PO SCH ×2 (14:49→20:41)
[2018-07-08] MEDS ORDERED: hydrALAZINE 25 MG TAB PO SCH (15:45)
[2018-07-08] MEDS: hydrALAZINE 25 MG TAB PO SCH (20:31)
[2018-07-09] MEDS: Sodium Chloride 0.9% 1,000 ML IV SCH ×3 (02:43→14:40)
[2018-07-09] MEDS: hydrALAZINE 20 MG/ML VIAL SLOW IVP PRN ×2 (05:30→22:39)
[2018-07-09] MEDS: cefTRIAXone\\ROCEPHIN 1 GM in Sodium Chloride 0.9% 100 ML IVPB SCH (05:30)
[2018-07-09 05:36] LABS: Anion Gap 17 mmol/L (10-20); BUN (Urea Nitrogen) 40 mg/dL (9.8-20.1); Calc. Creatinine Clearance 22 mL/min (70-130); Calcium 8.5 mg/dL (7.8-10.44); Carbon Dioxide 15 mmol/L (23-31); Chloride 111 mmol/L (98-107); Estimated GFR-MDRD 17; Glucose 72 mg/dL (80-115); Magnesium 1.6 mg/dL (1.6-2.6); Phosphorus 3.3 mg/dL (2.3-4.7); Potassium 3.7 mmol/L (3.5-5.1); Sodium 139 mmol/L (136-145)
[2018-07-09 06:05] LABS: Band 2 % (5-11); Hemoglobin 10.6 g/dL (12.0-16.0); Lymphocytes 7 % (21-51); MDiff Complete? YES; Mean Corpuscular HGB CONC 33.1 g/dL (32.0-36.0); Mean Corpuscular Hemoglobin 29.7 pg (27.0-31.0); Mean Corpuscular Volume 89.7 fL (78.0-98.0); Mean Platelet Volume 7.7 fL (7.4-10.4); Metamyelocyte 1 % (0-0); Monocytes 4 % (0-10); Neutrophil 86 % (42-75); PLT Morphology Comment Appears Adequate; Platelet Count 271 thou/uL (130-400); RBC Distribution Width 13.9 % (11.5-14.5); RBC Morphology Normal; Red Blood Cell (RBC) Count 3.58 mill/uL (4.20-5.40); White Blood Cell (WBC) Count 17.9 thou/uL (4.8-10.8)
[2018-07-09] MEDS: Tacrolimus 1 MG CAP PO SCH ×2 (09:32→20:21)
[2018-07-09] MEDS: Heparin 5,000 UNITS/ML VIAL SC SCH ×3 (09:32→20:22)
[2018-07-09] MEDS: Acetaminophen 325 MG TAB PO PRN (09:32)
[2018-07-09] MEDS: hydrALAZINE 25 MG TAB PO SCH ×3 (09:33→20:22)
[2018-07-09] MEDS: Sodium Bicarbonate Tab 325 MG TAB PO SCH ×4 (09:34→20:21)
[2018-07-09] MEDS: predniSONE 20 MG TAB PO SCH (09:34)
[2018-07-09] MEDS ORDERED: Mycophenolate 250 MG CAP PO SCH (11:15)
--- NOTE | 2018-07-09 13:08 | PRG ---
DATE OF SERVICE: 07/09/2018 SUBJECTIVE: Ms. Park is a 62-year-old white female who was admitted for mental status change. W e felt his mental status change was secondary to a combination of sedative that she has been taking. We have been consulted for her maintenance of her renal transplant. She had a superimposed prerenal azotemia. We have been hydrating this patient with some improvement with renal function. This morn ing, the patient is more awake. She recognizes people and can answer simple questions. She is aware where she is and aware to person . No complaints of chest pain or shortness of breath. OBJECTIVE: VITAL SIGNS: Blood pressure 180/71 ranging to as low as 147/66, heart rate 107, respiratory rate 26, pulse ox 98%, temperature 98.8. GENERAL: The patient is awake, alert, comfortable, not in overt distress. SKIN: Adequate turgor. HEENT: She has pinkish conjunctivae, anicteric sclerae. NECK: No neck mass, no carotid bruits, no JVD. CHEST: No deformities. LUNGS: Clear breath sounds. HEART: Normal sinus rhythm. No murmur, no gallops, no rubs. ABDOMEN: Globular, soft, nontender, no masses. EXTREMITIES: No edema, no deformities. MEDICATIONS: Of 07/09/2018, was reviewed. LABORATORY: Of 07/09/2018, white count 17.9, hemoglobin 10.6. Sodium 139, potassium 3.7, chloride 1 11, carbon dioxide 15, BUN 40, creatinine 2.86, glucose 72, phosphorus 3.3, magnesium 1.6, calcium 8. 5. ASSESSMENT AND PLAN: 1. Acute kidney injury - hemodynamically mediated renal dysfunction. Continue current supportive ca re. Continue current IV hydration. Slowly improving renal function. 2. Status post cadaveric renal transplant, stable. I would suggest we correct the CellCept to 500 m g tab b.i.d. I did discuss the case with the nursing staff. Continue current dose of Prograf. 3. Decreased mentation - slowly improving with discontinuation of her sedatives and pain medications . We will check up BK virus for this patient. Agree with current management.
--- NOTE | 2018-07-09 13:42 | PDOC.PN ---
- Subjective Encounter Start Date: 07/09/18 Encounter Start Time: 11:00 pt much more arousable and alert today Cr a little better, taking po and pills. No f/C, no N/V/d/C. at BS, updated to condition ROS not obtiainable reliably - Objective Resuscitation Status: Resuscitation Status DNR:Do Not Resuscitate MAR Reviewed: Yes Vital Signs & Weight: Vital Signs (12 hours) Temp Pulse Resp BP BP Pulse Ox 07/09/18 12:41 112 H 25 H 98 07/09/18 11:22 98.2 F 109 H 20 196/84 H 97 07/09/18 09:50 98.8 F 109 H 28 H 98 07/09/18 09:33 109 H 180/71 H 07/09/18 07:47 107 H 26 H 98 07/09/18 07:44 98.8 F 109 H 28 H 180/71 H 97 07/09/18 06:00 107 H 147/66 H 07/09/18 05:30 113 H 195/81 H 07/09/18 04:00 99.3 F 103 H 24 H 181/62 H 95 Weight Weight 148 lb 7 oz I&O: 07/08/18 07/09/18 07/10/18 06:59 06:59 06:59 Intake Total 1300 2940 Output Total 475 1250 Balance 825 1690 Result Diagrams: 07/09/18 04:57 07/09/18 04:57 Phys Exam - Physical Examination Constitutional: NAD HEENT: PERRLA, moist MMs, sclera anicteric, oral pharynx no lesions Neck: no nodes, no JVD, supple, full ROM Respiratory: no wheezing, no rales, no rhonchi, clear to auscultation bilateral Cardiovascular: RRR, no significant murmur, no rub Gastrointestinal: soft, non-tender, no distention, positive bowel sounds Musculoskeletal: pulses present, edema present Neurological: non-focal, normal sensation, moves all 4 limbs Lymphatic: no nodes Deviation from normal: sleepy, arousable, still confused Skin: no rash, normal turgor, cap refill <2 seconds Dx/Plan (1) Toxic metabolic encephalopathy Code(s): G92 - TOXIC ENCEPHALOPATHY Status: Acute Comment: secondary to normal home med retention in setting of FATMATA. (2) FATMATA (acute kidney injury) Code(s): N17.9 - ACUTE KIDNEY FAILURE, UNSPECIFIED Status: Acute Comment: improving f/u renal plan (3) Mild protein-calorie malnutrition Code(s): E44.1 - MILD PROTEIN-CALORIE MALNUTRITION Status: Chronic (4) Asthma Code(s): J45.909 - UNSPECIFIED ASTHMA, UNCOMPLICATED Status: Chronic (5) CAD (coronary artery disease) Code(s): I25.10 - ATHSCL HEART DISEASE OF [place] CORONARY ARTERY W/O ANG PCTRS Status: Chronic Qualifiers: Coronary Disease-Associated Artery/Lesion type: [place] artery [place] vs. transplanted heart: [place] heart Associated angina: without angina Qualified Code(s): I25.10 - Atherosclerotic heart disease of [place] coronary artery without angina pectoris (6) COPD (chronic obstructive pulmonary disease) Status: Chronic Qualifiers: COPD type: chronic bronchitis (7) Chronic renal allograft nephropathy Code(s): T86.11 - KIDNEY TRANSPLANT REJECTION Status: Chronic (8) H/O kidney transplant Status: Chronic (9) Hypertension Code(s): I10 - ESSENTIAL (PRIMARY) HYPERTENSION Status: Chronic Qualifiers: Hypertension type: essential hypertension Qualified Code(s): I10 - Essential (primary) hypertension (10) Immunosuppressed status Code(s): D89.9 - DISORDER INVOLVING THE IMMUNE MECHANISM, UNSPECIFIED Status: Chronic - Plan * .
--- NOTE | 2018-07-09 13:52 | PRG ---
DATE OF SERVICE: 07/09/2018 SUBJECTIVE: Ms. Park is less confused than yesterday. Her is at the bedside. She was o riented to place, but not to date. OBJECTIVE: VITAL SIGNS: On exam, temperature is 98.8, pulse 109, respirations 20, O2 sat 98% on room air. HEENT: Unremarkable. NECK: No JVD. CHEST: Fairly clear. CARDIAC: S1 and S2, regular. ABDOMEN: Soft. EXTREMITIES: No edema. LABORATORY DATA: White blood cell count 17.9, hematocrit 32.1, platelet count 271. Sodium 139, pota ssium 3.7, chloride 111, CO2 of 15, BUN 40, creatinine 2.8, glucose 72. ASSESSMENT: 1. Encephalopathy. 2. Hypoxic and hypercapnic respiratory failure. 3. Suspected polysubstance drug overdose. 4. Generalized asterixis, which appears to be improving. PLAN: Continue supportive care. I think she just needs time. We are continuing nebulization treatm ents and low-dose prednisone. Further care per Nephrology.
[2018-07-09] MEDS: Mycophenolate 250 MG CAP PO SCH (20:21)
[2018-07-10] MEDS: Sodium Chloride 0.9% 1,000 ML IV SCH ×3 (01:49→17:09)
[2018-07-10] MEDS: Acetaminophen 325 MG TAB PO PRN ×4 (02:25→17:05)
[2018-07-10 05:20] LABS: Anion Gap 19 mmol/L (10-20); BUN (Urea Nitrogen) 37 mg/dL (9.8-20.1); Calc. Creatinine Clearance 24 mL/min (70-130); Calcium 8.2 mg/dL (7.8-10.44); Carbon Dioxide 12 mmol/L (23-31); Chloride 109 mmol/L (98-107); Estimated GFR-MDRD 19; Glucose 77 mg/dL (80-115); Magnesium 1.5 mg/dL (1.6-2.6); Phosphorus 2.7 mg/dL (2.3-4.7); Sodium 137 mmol/L (136-145)
[2018-07-10 05:27] LABS: Potassium 2.9 mmol/L (3.5-5.1)
[2018-07-10 06:43] LABS: Band 5 % (5-11); Hemoglobin 11.6 g/dL (12.0-16.0); Lymphocytes 3 % (21-51); MDiff Complete? YES; Mean Corpuscular HGB CONC 33.2 g/dL (32.0-36.0); Mean Corpuscular Hemoglobin 29.4 pg (27.0-31.0); Mean Corpuscular Volume 88.7 fL (78.0-98.0); Mean Platelet Volume 7.8 fL (7.4-10.4); Monocytes 7 % (0-10); Neutrophil 85 % (42-75); PLT Morphology Comment Appears Adequate; Platelet Count 288 thou/uL (130-400); RBC Morphology Normal; Red Blood Cell (RBC) Count 3.93 mill/uL (4.20-5.40)
[2018-07-10] MEDS: cefTRIAXone\\ROCEPHIN 1 GM in Sodium Chloride 0.9% 100 ML IVPB SCH (07:16)
[2018-07-10] MEDS: Potassium Chloride 40 MEQ in Sodium Chloride 0.9% 250 ML 250 ML IVPB SCH ×2 (07:16→12:15)
[2018-07-10] MEDS: hydrALAZINE 25 MG TAB PO SCH ×3 (09:10→20:35)
[2018-07-10] MEDS: Sodium Bicarbonate Tab 325 MG TAB PO SCH ×4 (09:10→20:36)
[2018-07-10] MEDS: Mycophenolate 250 MG CAP PO SCH ×2 (09:10→20:35)
[2018-07-10] MEDS: predniSONE 20 MG TAB PO SCH (09:10)
[2018-07-10] MEDS: Tacrolimus 1 MG CAP PO SCH ×2 (09:10→20:35)
[2018-07-10] MEDS: Heparin 5,000 UNITS/ML VIAL SC SCH ×3 (09:11→20:36)
--- NOTE | 2018-07-10 10:33 | PRG ---
DATE OF SERVICE: 07/10/2018 SUBJECTIVE: Ms. Park is a 62-year-old white female who is status post cadaveric renal transplant and was admitted for mental status change. Mentation changes were secondary to intake of several se datives and pain medications with this patient. She is more awake today, but she is still confused. We also saw her because of her acute kidney injury that was prerenal. This morning, she is confused, but denies any chest pain, shortness of breath. OBJECTIVE: VITAL SIGNS: Blood pressure is 148/103, heart rate 108, respiratory rate 16, temperature 98.2, pulse ox 99%. GENERAL: Awake, confused, not in distress, sitting. HEENT: Pinkish conjunctivae, anicteric sclerae. NECK: No neck mass, no carotid bruits, no JVD. CHEST: No deformities. LUNGS: Decreased breath sounds. HEART: Normal sinus rhythm. No murmur, no gallops or rubs. ABDOMEN: Globular, soft, nontender, no masses. EXTREMITIES: No edema, no deformities. MEDICATIONS: Medications of 07/10/2018 reviewed. LABORATORY DATA: Laboratories of 07/10/2018 showed the following: White count 17, hemoglobin 11.6. Sodium 137, potassium 2.9, chloride 109, carbon dioxide 12, BUN 37, creatinine 2.59, phosphorus 2.7, magnesium 1.5, calcium 8.2. ASSESSMENT AND PLAN: 1. Acute kidney injury -- prerenal, slowly improving. Please note admitting creatinine was 3.21, it is now currently 2.59. Continue IV fluids. 2. Status post cadaveric renal transplant, stable. Continue current immunosuppressive regimen. I h trish ordered a BK virus surveillance. It is still pending. 3. Confusion -- drug induced. Continue supportive care. If persistent, consider neurological evalu ation. Please note that initial imaging of the brain was negative. 4. Status post cadaveric renal transplant. Continue current immunosuppressive regimen.
--- NOTE | 2018-07-10 11:29 | PRG ---
DATE OF SERVICE: 07/10/2018 SUBJECTIVE: Ms. Park is feeling better. She knew my name. Her says that he feels like she is doing much better. OBJECTIVE: VITAL SIGNS: On exam, temperature is 98.3, pulse 108, respirations 16, O2 sat 99%, blood pressure 14 8/103. HEENT: Unremarkable. NECK: Without adenopathy or JVD. LUNGS: Clear anteriorly. CARDIOVASCULAR: S1 and S2 regular. ABDOMEN: Soft. EXTREMITIES: No edema. LABORATORY DATA: Sodium 137, potassium 2.9, chloride 109, CO2 12, BUN 37, creatinine 2.5, glucose 77 . White blood cell count 17, hematocrit 34.9, platelet count 288,000. ASSESSMENT: 1. Encephalopathy, which is improved. 2. Hypoxic and hypercapnic respiratory failure. 3. Metabolic acidosis. 4. Probably polysubstance drug overdose. PLAN: 1. Potassium replacement. 2. Keep in IMCU for now. 3. Continue antibiotics, steroids and nebulization treatments.
--- NOTE | 2018-07-10 15:12 | PDOC.PN ---
- Subjective Encounter Start Date: 07/10/18 Encounter Start Time: 11:05 much more awake and alert, O x 2. no acute overnight events. at bedside and update no F/C, no N/V/d/C. C/O abd pain All systems reviewed and neg - Objective Resuscitation Status: Resuscitation Status DNR:Do Not Resuscitate MAR Reviewed: Yes Vital Signs & Weight: Vital Signs (12 hours) Temp Pulse Resp BP BP Pulse Ox 07/10/18 11:58 97.8 F 93 25 H 143/73 H 99 07/10/18 09:10 108 H 07/10/18 08:11 98.3 F 108 H 16 99 07/10/18 07:38 98.3 F 108 H 16 148/103 H 99 07/10/18 06:09 105 H 22 H 97 07/10/18 04:30 97.8 F 86 22 H 170/81 H 97 Weight Weight 148 lb 7 oz I&O: 07/09/18 07/10/18 07/11/18 06:59 06:59 06:59 Intake Total 2940 4480 Output Total 1250 925 Balance 1690 3555 Result Diagrams: 07/10/18 04:20 07/10/18 04:20 Phys Exam - Physical Examination HEENT: PERRLA, moist MMs, sclera anicteric, oral pharynx no lesions Neck: no nodes, no JVD, supple Respiratory: no wheezing, no rales, no rhonchi, clear to auscultation bilateral Cardiovascular: RRR, no rub Gastrointestinal: soft, no distention, positive bowel sounds Musculoskeletal: edema present Neurological: non-focal, normal sensation, moves all 4 limbs Lymphatic: no nodes Psychiatric: normal affect Skin: no rash, normal turgor, cap refill <2 seconds Dx/Plan (1) Toxic metabolic encephalopathy Code(s): G92 - TOXIC ENCEPHALOPATHY Status: Acute Comment: secondary to normal home med retention in setting of FATMATA. (2) FATMATA (acute kidney injury) Code(s): N17.9 - ACUTE KIDNEY FAILURE, UNSPECIFIED Status: Acute Comment: improving f/u renal plan (3) Mild protein-calorie malnutrition Code(s): E44.1 - MILD PROTEIN-CALORIE MALNUTRITION Status: Chronic (4) Asthma Code(s): J45.909 - UNSPECIFIED ASTHMA, UNCOMPLICATED Status: Chronic Qualifiers: Asthma severity: unspecified severity Asthma persistence: unspecified Asthma complication type: unspecified Qualified Code(s): J45.909 - Unspecified asthma, uncomplicated (5) CAD (coronary artery disease) Code(s): I25.10 - ATHSCL HEART DISEASE OF [place] CORONARY ARTERY W/O ANG PCTRS Status: Chronic Qualifiers: Coronary Disease-Associated Artery/Lesion type: [place] artery [place] vs. transplanted heart: [place] heart Associated angina: without angina Qualified Code(s): I25.10 - Atherosclerotic heart disease of [place] coronary artery without angina pectoris (6) COPD (chronic obstructive pulmonary disease) Status: Chronic Qualifiers: COPD type: chronic bronchitis (7) Chronic renal allograft nephropathy Code(s): T86.11 - KIDNEY TRANSPLANT REJECTION Status: Chronic (8) H/O kidney transplant Status: Chronic (9) Hypertension Code(s): I10 - ESSENTIAL (PRIMARY) HYPERTENSION Status: Chronic Qualifiers: Hypertension type: essential hypertension Qualified Code(s): I10 - Essential (primary) hypertension (10) Immunosuppressed status Code(s): D89.9 - DISORDER INVOLVING THE IMMUNE MECHANISM, UNSPECIFIED Status: Chronic - Plan cont current plan of care, plan discussed w/ family, PT/OT, respiratory therapy * .
[2018-07-11] MEDS ORDERED: Ondansetron ODT 4 MG TAB PO PRN (00:28)
[2018-07-11] MEDS: Acetaminophen 325 MG TAB PO PRN ×3 (02:37→20:51)
[2018-07-11] MEDS: Sodium Chloride 0.9% 1,000 ML IV SCH ×2 (03:48→14:54)
[2018-07-11 04:08] LABS: #Eosinphils 0.1 thou/uL (0.0-0.7); #Lymphocytes 1.2 thou/uL (1.20-3.40); #Monocytes 0.9 thou/uL (0.11-0.59); #Neutrophils 9.3 thou/uL (1.40-6.50); %Basophils 0.3 % (0.0-1.0); %Eosinophils 1.3 % (0.0-10.0); %Lymphocytes 10.1 % (21.0-51.0); %Monocytes 7.8 % (0.0-10.0); %Neutrophils 80.5 % (42.0-75.0); Hemoglobin 10.5 g/dL (12.0-16.0); Mean Corpuscular HGB CONC 33.4 g/dL (32.0-36.0); Mean Corpuscular Hemoglobin 30.2 pg (27.0-31.0); Mean Corpuscular Volume 90.2 fL (78.0-98.0); Mean Platelet Volume 7.8 fL (7.4-10.4); Platelet Count 247 thou/uL (130-400); Red Blood Cell (RBC) Count 3.47 mill/uL (4.20-5.40); White Blood Cell (WBC) Count 11.6 thou/uL (4.8-10.8)
[2018-07-11 04:29] LABS: Anion Gap 17 mmol/L (10-20); BUN (Urea Nitrogen) 33 mg/dL (9.8-20.1); Calc. Creatinine Clearance 25 mL/min (70-130); Calcium 7.9 mg/dL (7.8-10.44); Carbon Dioxide 13 mmol/L (23-31); Chloride 113 mmol/L (98-107); Estimated GFR-MDRD 20; Glucose 85 mg/dL (80-115); Magnesium 1.6 mg/dL (1.6-2.6); Potassium 3.6 mmol/L (3.5-5.1); Sodium 139 mmol/L (136-145)
[2018-07-11] MEDS: cefTRIAXone\\ROCEPHIN 1 GM in Sodium Chloride 0.9% 100 ML IVPB SCH (06:34)
--- NOTE | 2018-07-11 09:38 | PRG ---
DATE OF SERVICE: 07/11/2018 SERVICE: Renal Medicine. SUBJECTIVE: Ms. Prak is feeling better. She is more awake and alert. No new complaints. She h as mild intentional tremors occasionally. Please note, she has been off of her sedatives and pain me dications. Her decreased mentation was most likely drug induced. We are following her up for acute kidney injur y on top of her chronic renal failure - status post cadaveric renal transplant. Renal function is sl owly improving with IV hydration. PHYSICAL EXAMINATION: VITAL SIGNS: Blood pressure ranging from 177/76-190/68, heart rate 93, respiratory rate 14, temperat ure 97.8, pulse ox 97%. GENERAL EXAM: Awake, alert, comfortable, not in distress SKIN: Adequate turgor. HEENT: She has pinkish conjunctivae, anicteric sclerae. NECK: No neck mass, no carotid bruits, no JVD. CHEST: No deformities. LUNGS: Clear breath sounds. No wheezing, no crackles. HEART: Normal sinus rhythm. No murmur, no gallops, no rubs. ABDOMEN: Globular, soft, nontender, no masses. EXTREMITIES: No edema, no deformities. Medications of 07/11/2018 were reviewed. LABORATORY DATA: Laboratories of 07/11/2018, white count 11.6, hemoglobin 10.5. Sodium 139, potassi um 3.6, chloride 113, carbon dioxide 13, BUN 33, creatinine 2.49, calcium 7.9, phosphorus 3, magnesiu m 1.6. ASSESSMENT AND PLAN: 1. Acute kidney injury - prerenal azotemia. Continue current IV hydration. Creatinine is slowly im proving. Again, the creatinine was noted to have peaked at 3.21, it is currently 2.59. No indicatio n for any dialytic intervention. 2. Status post cadaveric renal transplant, continuing current immunosuppressive regimen. Please not e a BK virus PCR was ordered 2 days ago. 3. Decreased mentation - drug induced, much improved with adjustment of her sedatives. Agree with current management.
[2018-07-11] MEDS: Mycophenolate 250 MG CAP PO SCH ×2 (10:52→19:38)
[2018-07-11] MEDS: predniSONE 20 MG TAB PO SCH (10:53)
[2018-07-11] MEDS: Sodium Bicarbonate Tab 325 MG TAB PO SCH ×4 (10:53→19:43)
[2018-07-11] MEDS: Tacrolimus 1 MG CAP PO SCH ×2 (10:53→20:46)
[2018-07-11] MEDS: Heparin 5,000 UNITS/ML VIAL SC SCH ×3 (10:53→19:43)
[2018-07-11] MEDS: hydrALAZINE 25 MG TAB PO SCH ×3 (10:53→19:40)
--- NOTE | 2018-07-11 11:37 | PRG ---
DATE OF SERVICE: 07/11/2018 SUBJECTIVE: The patient is feeling better. She believes her breathing is at its baseline. Her husb and reports her mental status is very, very close to her baseline, although not 100%. The patient re ports she feels fine other than feeling a little bit shaky. PHYSICAL EXAMINATION: VITAL SIGNS: T-max 98.2, pulse 93, respirations 14-24, currently O2 sats 97% on room air, BP 176/77- 190/68. GENERAL APPEARANCE: Patient is awake and alert, conversant. She appears to have fairly normal cogni tion. She appears very slightly anxious and appears to have mild baseline tachypnea. HEENT: PERRL. She has no OP lesions. HEART: Regular rate and rhythm. LUNGS: Clear bilaterally, although slightly diminished breath sounds throughout. ABDOMEN: Soft, nontender, nondistended. EXTREMITIES: Warm and dry without edema. LABORATORY DATA: White count 11.6, hemoglobin 10.5. Sodium 139, potassium 3.6, chloride 113, CO2 13 , BUN is 33, creatinine is 2.49. IMPRESSION AND PLAN: 1. Toxic metabolic encephalopathy. This was apparently due to the patient having worsening renal fu nction and using some of her chronic pain medications. She is significantly improved and near her ba seline. Those medications have been held. 2. Acute kidney injury. This patient has a history of a transplanted kidney and had stable baseline creatinine that was significantly elevated on admission. It continues to decline every day and we w ill continue with hydration and monitoring. 3. Respiratory failure. The patient initially presented with some respiratory failure with chronic obstructive pulmonary disease. I was partly related to her encephalopathy that is much improved. Chrystal pritchard is currently with a little baseline tachypnea, but feels like she is breathing at her baseline. Co ntinue with supplemental oxygen and nebulizer treatments as needed. 4. History of renal allograft transplant. The patient has improving renal function. She is followe d by Dr. Julio. 5. Hypertension. The patient's blood pressure continues to be somewhat elevated at this time. She has p.r.n. medications. We will continue to monitor and manage that with the help of Dr. Julio. 6. History of coronary artery disease, appears to be stable. 7. History of chronic low back pain following surgical procedure. The patient has had some of her m edications held. We will ask physical therapy to get her up and around today. 8. The patient may have subtle withdrawal symptoms from not having her usual medications and feels a bit shaky. Trying to avoid giving her those medications secondary to the sedative nature they had w ith her. DISPOSITION: Will discontinue the patient's Ipnzon. Hope to potentially just continue her Rocephin t santosh as well. Anticipate she might be able to transfer up to the floor if okay with Pulmonology.
[2018-07-11] MEDS: Diphenoxylate HCl/Atropine Tablet PO PRN (15:00)
[2018-07-11] MEDS: Ondansetron HCl/PF 4 MG/2 ML Vial IVP PRN (19:36)
[2018-07-12] MEDS: Sodium Chloride 0.9% 1,000 ML IV SCH ×4 (00:59→23:04)
[2018-07-12] MEDS: Ondansetron HCl/PF 4 MG/2 ML Vial IVP PRN ×3 (01:19→20:32)
[2018-07-12] MEDS: Acetaminophen 325 MG TAB PO PRN ×4 (03:21→23:43)
[2018-07-12 04:52] LABS: Anion Gap 15 mmol/L (10-20); BUN (Urea Nitrogen) 28 mg/dL (9.8-20.1); Calc. Creatinine Clearance 29 mL/min (70-130); Calcium 7.6 mg/dL (7.8-10.44); Carbon Dioxide 13 mmol/L (23-31); Chloride 113 mmol/L (98-107); Estimated GFR-MDRD 22; Glucose 74 mg/dL (80-115); Magnesium 1.3 mg/dL (1.6-2.6); Phosphorus 3.5 mg/dL (2.3-4.7); Potassium 3.6 mmol/L (3.5-5.1); Sodium 137 mmol/L (136-145)
[2018-07-12] MEDS: cefTRIAXone\\ROCEPHIN 1 GM in Sodium Chloride 0.9% 100 ML IVPB SCH (06:17)
[2018-07-12 06:39] LABS: Band 2 % (5-11); Hemoglobin 10.2 g/dL (12.0-16.0); Hypochromia SLIGHT = 6-15 cells (100X) (0-5/hpf); Lymphocytes 12 % (21-51); MDiff Complete? YES; Mean Corpuscular HGB CONC 33.5 g/dL (32.0-36.0); Mean Corpuscular Hemoglobin 30.1 pg (27.0-31.0); Mean Corpuscular Volume 89.7 fL (78.0-98.0); Mean Platelet Volume 8.4 fL (7.4-10.4); Monocytes 8 % (0-10); Neutrophil 78 % (42-75); PLT Morphology Comment Appears Adequate; Platelet Count 235 thou/uL (130-400); Red Blood Cell (RBC) Count 3.39 mill/uL (4.20-5.40); White Blood Cell (WBC) Count 10.7 thou/uL (4.8-10.8)
[2018-07-12] MEDS: Mycophenolate 250 MG CAP PO SCH ×2 (09:01→20:25)
[2018-07-12] MEDS: Sodium Bicarbonate Tab 325 MG TAB PO SCH ×4 (09:02→20:24)
[2018-07-12] MEDS: hydrALAZINE 25 MG TAB PO SCH ×3 (09:02→20:24)
[2018-07-12] MEDS: predniSONE 20 MG TAB PO SCH (09:03)
[2018-07-12] MEDS: Tacrolimus 1 MG CAP PO SCH ×2 (09:03→20:24)
[2018-07-12] MEDS: Diphenoxylate HCl/Atropine Tablet PO PRN (09:07)
[2018-07-12] MEDS: Heparin 5,000 UNITS/ML VIAL SC SCH ×3 (09:08→20:23)
--- NOTE | 2018-07-12 09:18 | PRG ---
DATE OF SERVICE: 07/12/2018 HISTORY OF PRESENT ILLNESS: Ms. Park is a 62-year-old white female who was admitted for mental s tatus change due to a combination of her sedatives and pain medications. She is mentating much harmeet r. She was also found to be in acute kidney injury on top of her chronic renal failure. She was emp irically volume repleted with slow improvement of the renal function. No complaints today. She tells me she is feeling better. She had one episode of nausea last night. No complaints of chest pain or shortness of breath. PHYSICAL EXAMINATION: VITAL SIGNS: Blood pressure is currently at 138/77, heart rate 97, respiratory rate 16, temperature 97.9, pulse ox 98%. GENERAL: Noted to be awake, alert, sitting comfortable, not in overt distress. SKIN: Adequate turgor. HEENT: She has pinkish conjunctivae, anicteric sclerae. NECK: No neck mass, no carotid bruits, no JVD. CHEST: No deformities. LUNGS: Clear breath sounds, no wheezing, no crackles. HEART: Normal sinus rhythm. No murmur, no gallops or rubs. ABDOMEN: Globular, soft, nontender, no masses. EXTREMITIES: Trace edema. MEDICATIONS: 07/12/2018 - Reviewed. LABORATORY: 07/12/2018 - White count 10.7, hemoglobin 10.2. Sodium 137, potassium 3.6, chloride 113 , carbon dioxide 13, BUN 28, creatinine 2.26, glucose 74, calcium 7.6, phosphorus 3.5, magnesium 1.3. 07/09/2018 - Tacrolimus level is 2.0. ASSESSMENT AND PLAN: 1. Status post cadaveric renal transplant - the plan is for her to continue her current immunosuppre ssive regimen. Her tacrolimus level is noted at 2.0. Currently, her tacrolimus is at 1 mg b.i.d. M y plan is to redo another tacrolimus level by next week. When the level was taken this was a time wh en she was not taking her tacrolimus regularly. She will also continue with the current CellCept at 500 mg b.i.d. 2. Mental status change, much improved - this was precipitated by a combination of her pain medicati ons and sedatives. 3. Metabolic acidosis. Continue sodium bicarbonate replacement. 4. Acute kidney injury, hemodynamically mediated renal dysfunction. The patient is currently on IV hydration. We will recheck base met and CBC in a.m.
[2018-07-12] MEDS ORDERED: Lorazepam 2 MG/ML VIAL SLOW IVP SCH (12:15)
--- NOTE | 2018-07-12 12:51 | ADD-PRG ---
ADDENDUM: Due to the low tacrolimus level 2.0, I decided to increase her tacrolimus from 1 mg tab b.i.d. to 1 m g in the morning and 1.5 mg at night.
--- NOTE | 2018-07-12 18:29 | PRG ---
DATE OF SERVICE: 07/12/2018 SUBJECTIVE: The patient feels like she is doing relatively well from a breathing perspective. She d id have some nausea last night that seems to be better today. She was able to eat half of her sandwi ch. However, after I left the patient's room, she subsequently vomited her lunch. She is also funmilayo rned that she might be having some withdrawal because of the medications that she was previously ria lipscomb. OBJECTIVE: VITAL SIGNS: Temperature 97.9, pulse 89, O2 sats 97%, blood pressure was 138/77. GENERAL: Age appropriate female in no distress. She is awake, alert, oriented, pleasant, cooperativ e. HEENT: PERRL. No OP lesions. NECK: Supple and symmetric. HEART: Regular rate and rhythm. LUNGS: Have diminished breath sounds without significant wheezes or rales. ABDOMEN: Soft, nontender, nondistended. EXTREMITIES: No edema. LABORATORY DATA: White count 10.7, hemoglobin 10.2, platelets 235. Sodium 137, potassium 3.6, chlor khris 113, CO2 is 13, BUN 28, creatinine 2.26, glucose 74, calcium 7.6. Magnesium was 1.3. IMPRESSION AND PLAN: 1. Altered mental status secondary to toxic metabolic encephalopathy. It appears the patient likely had a combination of uremia and chronic pain medications. Those medications have been held and her renal function is improving. Her mental status appears to be at baseline. 2. Acute kidney injury. The patient has a transplanted kidney. She is followed by Dr. Julio and maximino ins on her antirejection medications. Her renal function continues to improve with hydration. We wi ll continue to monitor her levels. 3. Respiratory failure. The patient has significant COPD and has had a long history of smoking. e is stable as far as her respiratory status at this time. 4. History of renal allograft transplant. Again, stay on the antirejection medicine, saw by Dr. Julio . 5. Hypertension. Blood pressure is adequately managed. No change. 6. History of coronary artery disease, appears stable. 7. History of chronic low back pain following surgical intervention. The patient is not on any opio id medications. She is trying to work toward getting off of those. She has recently had epidural st eroid injections. At this time, she requests getting back on her benzodiazepine and trazodone. Give n her potential withdrawal with this nausea, I believe that is a reasonable plan and I will do that. We will continue to hold the opioids. DISPOSITION: Pinzon catheter is out. Patient is trying to get physical therapy today, so she can get up and around. If that goes well, she could potentially go home as soon as we feel comfortable with her renal function being adequately improved.
[2018-07-12] MEDS: ALPRAZolam 1 MG TAB PO SCH (20:25)
[2018-07-12] MEDS: Bupropion 150 MG SR TAB PO SCH (20:32)
[2018-07-12] MEDS ORDERED: traZODone HCl 50 MG TAB PO SCH (21:00)
[2018-07-12] MEDS ORDERED: Tacrolimus 0.5 MG CAP PO SCH (21:00)
[2018-07-13 04:58] LABS: #Eosinphils 0.1 thou/uL (0.0-0.7); #Lymphocytes 1.3 thou/uL (1.20-3.40); #Monocytes 1.1 thou/uL (0.11-0.59); #Neutrophils 6.5 thou/uL (1.40-6.50); %Basophils 0.2 % (0.0-1.0); %Eosinophils 1.5 % (0.0-10.0); %Lymphocytes 14.8 % (21.0-51.0); %Monocytes 11.7 % (0.0-10.0); %Neutrophils 71.9 % (42.0-75.0); Hemoglobin 9.9 g/dL (12.0-16.0); Mean Corpuscular HGB CONC 32.2 g/dL (32.0-36.0); Mean Corpuscular Hemoglobin 28.9 pg (27.0-31.0); Mean Corpuscular Volume 89.6 fL (78.0-98.0); Mean Platelet Volume 8.6 fL (7.4-10.4); Platelet Count 198 thou/uL (130-400); RBC Distribution Width 13.8 % (11.5-14.5); Red Blood Cell (RBC) Count 3.43 mill/uL (4.20-5.40); White Blood Cell (WBC) Count 9.1 thou/uL (4.8-10.8)
[2018-07-13] MEDS: cefTRIAXone\\ROCEPHIN 1 GM in Sodium Chloride 0.9% 100 ML IVPB SCH (05:19)
[2018-07-13] MEDS: Sodium Chloride 0.9% 1,000 ML IV SCH (05:20)
[2018-07-13 06:48] LABS: Anion Gap 12 mmol/L (10-20); BUN (Urea Nitrogen) 28 mg/dL (9.8-20.1); Calc. Creatinine Clearance 29 mL/min (70-130); Calcium 7.7 mg/dL (7.8-10.44); Carbon Dioxide 13 mmol/L (23-31); Chloride 116 mmol/L (98-107); Estimated GFR-MDRD 22; Glucose 83 mg/dL (80-115); Magnesium 1.2 mg/dL (1.6-2.6); Phosphorus 3.6 mg/dL (2.3-4.7); Potassium 3.6 mmol/L (3.5-5.1); Sodium 137 mmol/L (136-145)
[2018-07-13 07:24] VITALS: TEMP 98
[2018-07-13] MEDS: Acetaminophen 325 MG TAB PO PRN ×2 (08:11→13:42)
[2018-07-13] MEDS: hydrALAZINE 25 MG TAB PO SCH ×2 (08:11→13:44)
[2018-07-13] MEDS: Tacrolimus 1 MG CAP PO SCH (08:11)
[2018-07-13] MEDS: Sodium Bicarbonate Tab 325 MG TAB PO SCH ×2 (08:12→13:44)
[2018-07-13] MEDS: predniSONE 20 MG TAB PO SCH (08:12)
[2018-07-13] MEDS: ALPRAZolam 1 MG TAB PO SCH (08:13)
[2018-07-13] MEDS: Mycophenolate 250 MG CAP PO SCH (08:13)
[2018-07-13] MEDS ORDERED: Calcitriol 0.25 MCG CAP PO SCH (09:00)
[2018-07-13] MEDS ORDERED: PARoxetine 20 MG TAB PO SCH (09:00)
--- NOTE | 2018-07-13 09:19 | PRG ---
DATE OF SERVICE: 07/13/2018 SUBJECTIVE: Ms. Park is a 62-year-old white female with known history of acute kidney injury hussein t was hemodynamically mediated renal dysfunction. She is also status post cadaveric renal transplant . She was initially admitted for mental status change secondary to several drug interactions with he r. She is mentating better. Her renal function is slowly improving with IV hydration. She still payne s occasional nausea. No complaints of chest pain or shortness of breath. Please note I did adjust t he tacrolimus medication due to subtherapeutic level the other day. No other complaints. PHYSICAL EXAMINATION: VITAL SIGNS: Blood pressure 161/81, heart rate 89, respiratory rate 18, temperature 98, pulse ox 98% . GENERAL: Noted to be awake, alert, sitting comfortable, not in overt distress. SKIN: Adequate turgor. HEENT: She has slightly pale conjunctivae, anicteric sclerae. NECK: No neck mass, no carotid bruits, no JVD. CHEST: No deformities. LUNGS: Decreased breath sounds. HEART: Normal sinus rhythm. No murmur, no gallops, no rubs. ABDOMEN: Globular, soft, nontender, no masses. EXTREMITIES: No edema, no deformities. MEDICATIONS: 07/13/2018 - Reviewed. LABORATORY DATA: 07/13/2018 - Sodium 137, potassium 3.6, chloride 116, carbon dioxide 13, BUN 28, cr eatinine 2.22, glucose 83, calcium 7.7, phosphorus 3.6, magnesium 1.2. White count 9.1, hemoglobin 9 .9. ASSESSMENT: 1. Acute kidney injury - superimposed prerenal azotemia, slowly improving. Creatinine is noted 2.22 with IV hydration. I did encourage the patient to increase her p.o. intake and she tells me she chandana l try to comply with this. 2. Status post cadaveric renal transplant. The last tacrolimus level with this patient was noted at 2.0. Usually the therapeutic level will be between 4 and 8. I have increased her tacrolimus to 1.0 mg in the morning and 1.5 mg at night. Consider rechecking tacrolimus level in 1-2 weeks. 3. Decreased mentation - much improved. Drug-induced. She is mentating better. I did advise the p atient to follow up with her PCP so they can adjust her sedatives and pain medications. 4. Status post cadaveric renal transplant. We will continue current immunosuppressive regimen. No other changes will be made. I did order for a BK virus for this patient which is still currently pending.
[2018-07-13] MEDS: Diphenoxylate HCl/Atropine Tablet PO PRN (09:41)
[2018-07-13 10:44] VITALS: BP 161/87
[2018-07-13] MEDS: Heparin 5,000 UNITS/ML VIAL SC SCH ×2 (11:22→13:59)
[2018-07-13] MEDS: Bupropion 150 MG SR TAB PO SCH (13:49)
--- NOTE | 2018-07-14 07:48 | DIS ---
DATE OF ADMISSION: 07/07/2018 DATE OF DISCHARGE: 07/13/2018 DISCHARGE DIAGNOSES: 1. Altered mental status secondary to encephalopathy which appears to be related to a combination of uremia and use of pain medications. 2. Acute kidney injury with acute renal insufficiency. 3. History of allograft renal transplant. 4. Acute respiratory failure with hypoxia. 5. Hypertension. 6. History of coronary artery disease. 7. History of chronic low back pain with a history of prior surgical interventions. HOSPITAL COURSE: This patient is a 62-year-old female who presented via the emergency department wit h significant shortness of breath and altered mental status with somnolence. The patient has a histo ry of the allograft renal transplant and is on antirejection medications. She also has a history of lumbar spine surgery with chronic L-spine pain. The patient immediately required BiPAP to maintain a dequate oxygenation. The patient was admitted to the ICU and maintained on the BiPAP while she was aggressively hydrated b ecause of her acute renal insufficiency. Dr. Julio, who was her local supervisor communications and signals was consulted. He continued to follow. He checked a tacrolimus level which ultimately did come back low; however, the patient had been on a lower than her usual home dose of tacrolimus for some reason. Her renal functi on improved daily as did her mental status as her sedating medications were held. As the patient bec anu more awake and alert her respiratory status improved drastically and she was able to come off the BiPAP. She was subsequently transferred out of the IMCU to the floor. There the patient continued to get stronger, but felt weak, shaky and had some nausea and vomiting. It was felt the patient migh t be withdrawing a bit from some of her medications, so she was resumed back on her benzodiazepine an d trazodone, although her opioids were continually held with her blessing. The patient had recently had epidural steroid injections and is trying very diligently to avoid the opioid medications. The p atient was also tolerating her nicotine withdrawal fairly well as she was a very heavy smoker and obv iously had stopped that upon admission. Ultimately, once the patient was strong enough that she felt comfortable managing at home and she was stable on her medications, breathing comfortably without rogers pplemental oxygen and her renal function was near baseline, she was felt to be stable for discharge t o home. DISPOSITION: The patient is discharged to home. She is to follow up with Dr. Julio on as dir ected. Her activity level is as tolerated. She will be on a heart healthy diet. DISCHARGE MEDICATIONS: 1. She will be on tacrolimus [address] and Dr. Julio will check that level when she follows up with him again. 2. Sodium bicarbonate 1300 mg b.i.d. 3. Prednisone 7.5 mg q.a.m. 4. Zocor 40 mg daily. 5. CellCept 500 mg b.i.d. 6. Loperamide 2 mg b.i.d. p.r.n. 7. Alprazolam 0.5 mg b.i.d. 8. Trazodone 100 mg at bedtime. 9. Benadryl 25 mg q.4 hours p.r.n. 10. Lopid 600 mg b.i.d. 11. Paroxetine 40 mg every day. 12. Rocaltrol 0.25 every day. 13. Metoclopramide 10 mg b.i.d. 14. Pantoprazole 40 mg b.i.d. 15. Zofran 4 mg q.6 hours p.r.n. 16. Neurontin 600 mg daily and 1800 mg at bedtime. 17. Bupropion 150 mg b.i.d. She is to stop to tizanidine and the Tylenol with codeine. She has followup planned for Dr. Perry and for Dr. Julio as indicated. She is also encouraged to fol low up with her PCP and return to the emergency department should she have any problems prior to that time. PHYSICAL EXAMINATION: VITAL SIGNS: On the day of discharge, temperature was 98, pulse 89, BP was 161/87, O2 sat was 100% o n room air. GENERAL: She was awake, alert, and oriented. HEART: Heart was regular rate and rhythm. LUNGS: Clear bilaterally. ABDOMEN: Soft, nontender, nondistended. EXTREMITIES: Extremities were noted for some puffy edema in her upper extremities, but otherwise nor mal. Her labs are notable for a creatinine that was back down to 2.22. Of note, the patient was encourage d to continue significantly more oral hydration at home by Dr. Julio.
--- NOTE | 2018-07-16 10:58 | EKG ---
Test Reason : STROKE ALERT Blood Pressure : / mmHG Vent. Rate : 098 BPM Atrial Rate : 098 BPM P-R Int : 162 ms QRS Dur : 076 ms QT Int : 364 ms P-R-T Axes : 074 -10 043 degrees QTc Int : 464 ms Normal sinus rhythm Left atrial enlargement Borderline ECG Confirmed by STEFANIA ENAMORADO DO ([id number]), rewrite editor SERGIO PARK ([id number]) on 07/16/2018 10:57:48 AM Referred By: Confirmed By:STEFANIA ENAMORADO DO
== END 2018-07-13 14:58 | disposition home or self-care (01) | DRG 682 ==
LOC: ERS 01:06 → IMCU/EMU 04:02 → T4-B 07-11 16:42 → T4-A 07-11 16:53
PROVIDERS: ADMIT Internal Medicine; ATTEND Internal Medicine
DX: N17.9 Acute kidney failure, unspecified (principal); G92 Toxic encephalopathy; J96.01 Acute respiratory failure with hypoxia; J96.02 Acute respiratory failure with hypercapnia; E44.1 Mild protein-calorie malnutrition; Z94.0 Kidney transplant status; J44.1 Chronic obstructive pulmonary disease with (acute) exacerbation; E87.2 Acidosis; N39.0 Urinary tract infection, site not specified; I13.2 Hypertensive heart and chronic kidney disease with heart failure and with stage 5 chronic kidney disease, or end stage renal disease; I50.22 Chronic systolic (congestive) heart failure; Z66 Do not resuscitate; N18.6 End stage renal disease; I25.10 Atherosclerotic heart disease of native coronary artery without angina pectoris; D89.9 Disorder involving the immune mechanism, unspecified; E86.0 Dehydration; L89.151 Pressure ulcer of sacral region, stage 1; E78.5 Hyperlipidemia, unspecified; I25.2 Old myocardial infarction; F17.210 Nicotine dependence, cigarettes, uncomplicated; Z86.73 Personal history of transient ischemic attack (TIA), and cerebral infarction without residual deficits; F03.90 Unspecified dementia, unspecified severity, without behavioral disturbance, psychotic disturbance, mood disturbance, and anxiety; E87.6 Hypokalemia; Z99.2 Dependence on renal dialysis; T40.605A Adverse effect of unspecified narcotics, initial encounter; F32.9 Major depressive disorder, single episode, unspecified; F41.9 Anxiety disorder, unspecified; F98.8 Other specified behavioral and emotional disorders with onset usually occurring in childhood and adolescence
CPT/HCPCS: 36415; 36416; 51701; 70450; 71045; 80048; 80053; 80197; 81003; 81015; 82140; 82553; 82805; 83605; 83735; 84100; 84484; 85025; 85610; 85730; 87799; 93005; 94640; 94660; 96361; 96374; 99406; A4216; A4353; G8978-GP-CJ; G8979-GP-CI; J0360; J0696; J1644; J2060; J2405; J3480; J3490; J7050; J7506; J7507; J7517; J7620; Q0162

== ENCOUNTER 2018-08-04 06:44 | Inpatient (IN) | payer MEDICARE ==
[2018-08-04] MEDS ORDERED: Nitroglycerin 0.4 MG TAB (25 Tab Bottle) ONE (07:28)
[2018-08-04 07:52] LABS: #Eosinphils 0.1 thou/uL (0.0-0.7); #Lymphocytes 0.8 thou/uL (1.20-3.40); #Monocytes 0.9 thou/uL (0.11-0.59); #Neutrophils 12.6 thou/uL (1.40-6.50); %Basophils 0.2 % (0.0-1.0); %Eosinophils 0.4 % (0.0-10.0); %Lymphocytes 5.4 % (21.0-51.0); Hemoglobin 9.4 g/dL (12.0-16.0); Mean Corpuscular HGB CONC 31.8 g/dL (32.0-36.0); Mean Corpuscular Hemoglobin 28.7 pg (27.0-31.0); Mean Corpuscular Volume 90.2 fL (78.0-98.0); Mean Platelet Volume 7.4 fL (7.4-10.4); Platelet Count 199 thou/uL (130-400); RBC Distribution Width 14.5 % (11.5-14.5); Red Blood Cell (RBC) Count 3.27 mill/uL (4.20-5.40); White Blood Cell (WBC) Count 14.3 thou/uL (4.8-10.8)
[2018-08-04] MEDS ORDERED: Acetaminophen 500 MG TAB ONE (08:02)
--- NOTE | 2018-08-04 08:09 | RAD ---
RADIOGRAPH CHEST 1 VIEW: DATE: 08/04/18 TIME: 7:50 a.m. HISTORY: A 62-year-old female with dyspnea. FINDINGS: There is no air space density, pulmonary edema, or pneumothorax. The lateral costophrenic angles are sharp. IMPRESSION: No acute pulmonary findings. jeyson [] POS: [facility]
[2018-08-04 08:19] LABS: ALT (SGPT) 7 U/L (8-55); AST (SGOT) 11 U/L (5-34); Albumin 2.6 g/dL (3.4-4.8); Alkaline Phosphatase 99 U/L (40-150); Anion Gap 12 mmol/L (10-20); BUN (Urea Nitrogen) 31 mg/dL (9.8-20.1); Bilirubin, Total 0.3 mg/dL (0.2-1.2); Calc. Creatinine Clearance 0 mL/min (70-130); Calcium 7.8 mg/dL (7.8-10.44); Carbon Dioxide 22 mmol/L (23-31); Chloride 110 mmol/L (98-107); Estimated GFR-MDRD 15; Glucose 95 mg/dL (80-115); Potassium 4.9 mmol/L (3.5-5.1); Protein, Total 4.6 g/dL (6.0-8.3); Sodium 139 mmol/L (136-145)
[2018-08-04 08:23] LABS: CKMB 2.5 ng/mL (0-6.6); Troponin I 0.173 ng/mL (< 0.028)
[2018-08-04] MEDS ORDERED: Furosemide 40 MG/4 ML VIAL ONE (08:41)
[2018-08-04] MEDS ORDERED: Nitroglycerin 2% Ointment 1 INCH/1 GM Packet ONE (08:41)
[2018-08-04 10:16] LABS: Phosphorus 4.6 mg/dL (2.3-4.7); Uric Acid 7.2 mg/dL (2.6-6.0)
[2018-08-04 10:49] LABS: Bilirubin Small (Negative); Blood, Urine Large (Negative); Clarity CLOUDY (Clear); Glucose, Urine (Dipstick) Negative (Negative); Leukocyte Negative (Negative); Nitrite Negative (Negative); Protein, Urine (Dipstick) 300 mg/dL (Neg-Trace); Specific Gravity, Urine 1.008 (1.002-1.036); Urobilinogen 0.2 mg/dL (0.2-1.0)
[2018-08-04 10:51] LABS: Bacteria/HPF 4+ HPF (None Seen); Hyaline Casts/LPF 7-10 HYALINE CAST LPF (0-3 Hyaline); Pathc Cast-AUWi Flag 1.88 (0-2.49); Squamous Epithelial 0-3 HPF (0-3); WBC/HPF 0-3 HPF (0-3)
[2018-08-04 11:07] LABS: Creatinine, Urine 27.79 mg/dL (47-110)
[2018-08-04 11:34] LABS: Troponin I 0.177 ng/mL (< 0.028)
[2018-08-04] MEDS ORDERED: hydrALAZINE 20 MG/ML VIAL ONE (11:39)
[2018-08-04] MEDS ORDERED: Ondansetron ODT 4 MG TAB ONE ×2 (11:43→12:18)
[2018-08-04] MEDS ORDERED: Lorazepam 2 MG/ML VIAL ONE (12:36)
[2018-08-04 13:37] VITALS: BMI 29.6
[2018-08-04 14:55] LABS: Troponin I 0.234 ng/mL (< 0.028)
[2018-08-04] MEDS: hydrALAZINE 20 MG/ML VIAL SLOW IVP PRN ×2 (15:32→18:14)
--- NOTE | 2018-08-04 15:35 | CT ---
CT BRAIN WITHOUT CONTRAST: Comparison: 02-04-18 History: Encephalopathy. Technique: Multiple contiguous axial images were obtained in a CT of the brain without contrast. FINDINGS: There are scattered hypodensities in the subcortical and periventricular white matter, likely seconda ry to small vessel ischemic disease. No large confluent infarction is seen. There is no evidence of h ydrocephalus, intracranial hemorrhage, or extraaxial fluid collection. The calvarium and overlying soft tissues are unremarkable. The visualized paranasal sinuses and masto id air cells are well aerated. IMPRESSION: No evidence of acute intracranial abnormality. POS: [facility]
--- NOTE | 2018-08-04 15:39 | ULT ---
RENAL ULTRASOUND: 08/04/18 COMPARISON: None. HISTORY: History of renal transplant with high blood pressure. TECHNIQUE: Multiplanar bhandari scale and color doppler images were obtained in a renal ultrasound. Spectral analysi s of the doppler waveform of the transplant kidney vasculature was performed. FINDINGS: The chilkoot kidneys were not visualized. The transplanted kidney is in the left lower quadrant of the abdomen. There is mild left hydronephrosis. No shadowing calculi is seen in the left kidney. The winkler splanted kidney measures 12.4 cm in length. Limited visualization of the urinary bladder is unremarkable. The resistive indices of the transplanted kidney range from 0.66 to 0.87. The doppler waveforms are n ormal within the transplant kidney artery. IMPRESSION: Mild transplant kidney hydronephrosis. POS: [facility]
[2018-08-04] MEDS ORDERED: Ondansetron ODT 4 MG TAB PO PRN (15:57)
[2018-08-04] MEDS ORDERED: cloNIDine 0.1 MG TAB PO SCH (16:00)
[2018-08-04] MEDS: Ondansetron HCl/PF 4 MG/2 ML Vial SLOW IVP PRN (18:01)
[2018-08-04] MEDS: Albumin 25% 25 GM/100 ML BOT IVPB SCH ×2 (18:02→23:27)
--- NOTE | 2018-08-04 19:59 | HP ---
CHIEF COMPLAINT: The patient was "gurgling" while sleeping and was difficult to arouse. HISTORY OF PRESENT ILLNESS: This patient is a 62-year-old female with whom I am somewhat familiar from her previous admission. At that time, the patient was felt to possibly overmedicated. She was on several potential psychotropic medications including pain medications, which she was using for chronic back pain. Once the patient was improved, she was kept off of opioids and she did well and reports now that she did not go back on them. Her reported to nursing that they had not been taking any medications including gabapentin. She has also been off cigarettes while in the hospital, but apparently has gone back to smoking about half pack a day. Her reported previously that basically all they do is sit around and smoked. Today, the patient was brought to the hospital and given the above-mentioned symptoms. In the emergency department, the patient was felt to have congestive heart failure and was given a dose of Lasix and hydralazine for elevated blood pressure. The patient now reports that she has had a continuous peripheral edema since she left the hospital. She certainly did have a persistent edema after receiving a fair amount of initial hydration during that hospitalization and was discharged fully with the expectation that it would improve with time. She reports it has not significantly improved. She herself is not otherwise completely aware of why she is here today. REVIEW OF SYSTEMS: Cannot be obtained other than those things mentioned in the above history because of the patient's mental status. She does report that she did have some vomiting today. PAST MEDICAL HISTORY: End-stage renal disease, patient was originally on peritoneal dialysis, but had a renal transplant in 2005. She has a history of TIAs, hyperlipidemia, congestive heart failure, dementia, COPD, heart catheterization, cholecystectomy, hysterectomy, and left rib fracture. I have note the patient's baseline creatinine is typically below 3 and has been above 3 for the last month or so. FAMILY HISTORY: Notable for coronary artery disease. Father had some dementia as well. SOCIAL HISTORY: The patient has a history of substantial smoking. Apparently, she has been cutting back. There is no history of alcohol or illicit drug use. She is and is identified her is her surrogate decision maker. Previously, she was a DNR/DNI, that will be clarified with the patient's , since I did not get a hold of him; however, for now we will keep her FULL CODE, so that can be fully clarified. ALLERGIES: LATEX and PROMETHAZINE. CURRENT MEDICATIONS: CellCept 500 mg p.o. b.i.d., Zofran 4 mg q.6 hours p.r.n. , Reglan 10 mg p.o. b.i.d., trazodone 100 mg at bedtime, Prednisone 7.5 mg p.o. every day, Prograf 2 mg p.o. b.i.d., bicarbonate 1300 mg b.i.d., Zocor 40 mg at bedtime, Protonix 40 mg b.i.d., paroxetine 40 mg every day, Rocaltrol 0.25 mcg p.o. every day, loperamide 2 mg b.i.d., Xanax 0.5 mg b.i.d., Lasix 40 mg every day. PHYSICAL EXAMINATION: GENERAL APPEARANCE: The patient appears somewhat encephalopathic. She appears to be a little bit anxious, but falls asleep frequently. She starts talking normally and transition on the something that does not make any sense. Then will stop herself and recognize that what she is saying is not making sense. HEENT: Pupils are reactive. She has no OP lesions. NECK: Supple and symmetric. CARDIOVASCULAR: Regular rate and rhythm without murmurs. LUNGS: Clear bilaterally. ABDOMEN: Soft, nontender, nondistended. EXTREMITIES: Do have 1+ pitting edema of the lower extremities and some puffy nonpitting edema of the upper extremities. NEUROLOGIC: The patient appears anxious and somewhat confused a bit encephalopathic and has some fine motor jerking not unlike what she was experiencing when she was here previously. LABORATORY DATA: White count 14.3, hemoglobin 9.4, platelets 199. Sodium 139, potassium 4.9, chloride 110, CO2 of 22, BUN 31, creatinine is 3.23, glucose 95. Uric acid 7.2, calcium 7.8, phosphorus 4.6, magnesium 1.0, AST is 11, ALT 7, alkaline phosphatase 99, LDH 305, troponin 0.173 and 0.177. BNP 974. Total protein 4.6, albumin 2.6. Urine shows protein, large blood, small bilirubin, 11 -20 red cells, 4+ bacteria. Random urine protein 353, creatinine is 3.23. Chest x-ray, no acute pulmonary findings. ASSESSMENT AND PLAN: 1. Altered mental status. At this point, the patient appears encephalopathic, cannot be clear if this is related to possible infection versus medication versus hypertensive encephalopathy versus reaction to the Ativan she was given in the emergency department. We will get a CT of the head to rule out any acute bleed. It should be noted that this patient has had multiple CTs and MRIs over the last year to year and a half for altered mental status. Seems to be a recurring problem for her. We will also address the blood pressure. 2. Renal: The patient has a history of a renal transplant. Her creatinine is still a bit above her usual baseline. I am concerned with her elevated blood pressure. We will get a renal ultrasound to ensure that it was not compromising the transplanted kidney. 3. Edema. The patient had some peripheral edema when she left the hospital last time. Her albumin level is still only 2.6 and total protein levels are down. I am not sure that she is having full blown congestive heart failure given the BNP in the setting of her significant renal disease and a negative chest x-ray with no pulmonary edema. She did receive a dose of diuresis in the ER. We will need to be careful to manage her fluids with her given renal function. 4. History of chronic pain. The patient has been weaning down her medications and looks like she has been doing relatively good job of that. We will check a urine drug screen. 5. Leukocytosis, unclear etiology. No overt evidence of infection. We will simply continue to monitor if her mental status does not improve somewhat and her CT is negative, she may at some point need a lumbar puncture, although I think that is likely low yield presently. 6. History of chronic obstructive pulmonary disease in the setting of a substantial smoking history. The patient does not appear to have any respiratory compromise at the moment. 7. Renal transplant. Continue with the Prograf, CellCept and prednisone. Consult Dr. Julio. 8. History of anxiety disorder. Continue with p.r.n. benzodiazepines. MTDD
[2018-08-04] MEDS: ALPRAZolam 0.5 MG TAB PO SCH (20:19)
[2018-08-04] MEDS: Atorvastatin Calcium 20 MG TAB PO SCH (20:20)
[2018-08-04] MEDS: cloNIDine 0.3 MG TAB PO SCH (20:20)
[2018-08-04] MEDS: Tacrolimus 1 MG CAP PO SCH (20:22)
[2018-08-04] MEDS: Loperamide HCl 2 MG CAP PO SCH (20:22)
[2018-08-04] MEDS: Sodium Bicarbonate Tab 325 MG TAB PO SCH (20:22)
[2018-08-04] MEDS: Metoclopramide HCl 10 MG TAB PO SCH (20:22)
[2018-08-04] MEDS: Mycophenolate 250 MG CAP PO SCH (20:22)
[2018-08-04] MEDS: traZODone HCl 50 MG TAB PO SCH (20:22)
[2018-08-04] MEDS ORDERED: Magnesium 2 GM/NS 0.9% 100 ML 2 GM in Premix Bag 1 BAG IVPB SCH (23:00)
[2018-08-05] MEDS: hydrALAZINE 20 MG/ML VIAL SLOW IVP PRN (04:01)
[2018-08-05 05:04] LABS: #Eosinphils 0.1 thou/uL (0.0-0.7); #Lymphocytes 0.9 thou/uL (1.20-3.40); #Monocytes 0.8 thou/uL (0.11-0.59); #Neutrophils 12.2 thou/uL (1.40-6.50); %Basophils 0.2 % (0.0-1.0); %Eosinophils 0.5 % (0.0-10.0); %Lymphocytes 6.3 % (21.0-51.0); %Monocytes 5.9 % (0.0-10.0); Hemoglobin 8.7 g/dL (12.0-16.0); Mean Corpuscular HGB CONC 32.4 g/dL (32.0-36.0); Mean Corpuscular Hemoglobin 29.6 pg (27.0-31.0); Mean Corpuscular Volume 91.3 fL (78.0-98.0); Platelet Count 208 thou/uL (130-400); RBC Distribution Width 14.8 % (11.5-14.5); Red Blood Cell (RBC) Count 2.92 mill/uL (4.20-5.40)
[2018-08-05 05:12] LABS: Anion Gap 13 mmol/L (10-20); BUN (Urea Nitrogen) 32 mg/dL (9.8-20.1); Calc. Creatinine Clearance 20 mL/min (70-130); Calcium 8.3 mg/dL (7.8-10.44); Carbon Dioxide 21 mmol/L (23-31); Chloride 110 mmol/L (98-107); Estimated GFR-MDRD 14; Glucose 86 mg/dL (80-115); Magnesium 1.8 mg/dL (1.6-2.6); Potassium 4.2 mmol/L (3.5-5.1); Sodium 140 mmol/L (136-145)
[2018-08-05] MEDS: Albumin 25% 25 GM/100 ML BOT IVPB SCH ×3 (06:08→18:06)
[2018-08-05] MEDS ORDERED: Furosemide 40 MG TAB PO SCH (09:00)
[2018-08-05] MEDS: Tacrolimus 1 MG CAP PO SCH ×2 (09:28→20:41)
[2018-08-05] MEDS: PARoxetine 20 MG TAB PO SCH (09:28)
[2018-08-05] MEDS: cloNIDine 0.3 MG TAB PO SCH ×2 (09:29→20:41)
[2018-08-05] MEDS: Metoclopramide HCl 10 MG TAB PO SCH ×2 (09:30→20:41)
[2018-08-05] MEDS: Mycophenolate 250 MG CAP PO SCH ×2 (09:30→20:39)
[2018-08-05] MEDS: ALPRAZolam 0.5 MG TAB PO SCH ×2 (09:30→20:40)
[2018-08-05] MEDS: predniSONE 5 MG TAB PO SCH (09:31)
[2018-08-05] MEDS: Loperamide HCl 2 MG CAP PO SCH ×2 (09:32→20:41)
[2018-08-05] MEDS: Calcitriol 0.25 MCG CAP PO SCH (09:32)
[2018-08-05] MEDS: Sodium Bicarbonate Tab 325 MG TAB PO SCH ×2 (09:38→20:39)
--- NOTE | 2018-08-05 10:05 | PRG ---
DATE OF SERVICE: 08/05/2018 SUBJECTIVE: Ms. Park is a 62-year-old white female who is status post renal transplant and admit michelle for worsening leg edema. She was also noted to have labile hypertension. She also had some ment al status change. She was noted to be sleepier than the usual. This morning she is more awake. Her leg edema is also improved. Please note the patient was started on diuretic as an outpatient due to complaints of leg edema. Of interest, this patient has had recurrence of proteinuria. She has also been having worsening renal dysfunction in the past. 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 A BK virus serology was done a month ago which was negative. She was supposed to follow up with her [facility] transplant retail operations specialist in [place] to date. The patient is currently asymptomatic, voices no complaints of chest pain, shortness of breath. Leg edema is much improved. MEDICATIONS: Albumin 25 grams IV q.6 hours, DuoNeb q.4 hours p.r.n., Lipitor 20 mg tab at bedtime, c alcitriol 0.25 mcg every day, Catapres 0.3 mg p.o. b.i.d., furosemide 40 mg daily, hydralazine 10 mg IV p.r.n., Reglan 10 mg p.o. b.i.d., Zofran 4 mg q.6 hours p.r.n., Paxil 40 mg daily, Prograf 2 mg p. o. b.i.d., trazodone 100 mg p.o. at bedtime, CellCept 500 mg p.o. b.i.d. PHYSICAL EXAMINATION: VITAL SIGNS: Blood pressure is 151/66, heart rate 91, respiratory rate 20, temperature 97.9, pulse o ximetry 99%. GENERAL: Awake, alert, supine, comfortable, not in overt distress. SKIN: Adequate turgor. HEENT: Slightly pale conjunctivae, anicteric sclerae. NECK: No neck mass, no carotid bruits, no JVD. CHEST: No deformities. LUNGS: Clear breath sounds. No wheezing, no crackles. HEART: Normal sinus rhythm. No murmur, no gallops or rubs. ABDOMEN: Globular, soft, nontender, no masses. EXTREMITIES: No edema, no deformities. NEUROLOGIC: Awake, oriented to 3 spheres. Moving all extremities. No tremors. No asterixis. No a taxia. LABORATORY: Of 08/05/2018: White count is 14, hemoglobin 8.7. Sodium 140, potassium 4.2, chloride 110, carbon dioxide 21, BUN 32, creatinine 3.24, GFR 14 mL per minute, glucose 86, calcium 8.3, tropo rebecca I 0.234. On 08/04/2018, chest x-ray, no acute pulmonary findings. On 08/04/2018, renal ultrasou nd, tlingit & haida kidney is not visualized, the transplanted kidney is in the left lower quadrant. There is a mild left hydronephrosis. Resistive indices are within normal. CT scan of the head shows no evidence of acute intracranial abnormality. ASSESSMENT AND PLAN: 1. Acute kidney injury on top of her chronic renal failure -- creatinine noted at 3.24. She has bee n started on salt poor albumin. Please note, due to the improved leg edema, we will discontinue the furosemide to see if I can get any more renal improvement with the renal function. She will continue her current immunosuppressive regimen. 2. Mild hydronephrosis of transplanted kidney -- the patient may need further urological workup. We will be setting her up for a followup with her transplant retail operations specialist. 3. Anemia. Start Epogen 7500 units subcu every week. 5. Labile hypertension. Continue current dose of Clonidine 0.3 mg p.o. b.i.d. 6. Leg edema, much improved. Discontinue furosemide. Recheck base met and CBC in a.m.
[2018-08-05] MEDS ORDERED: Ferrous Sulfate 325 MG TAB PO SCH (11:15)
[2018-08-05] MEDS ORDERED: Epoetin (ESRD) 20,000 UNITS/ML SC SCH (12:00)
--- NOTE | 2018-08-05 12:41 | PDOC.PN ---
- Subjective Encounter Start Date: 08/05/18 Encounter Start Time: 11:20 Feeling better. Still sleepy, but easily awakens. - Objective Resuscitation Status: Resuscitation Status FULL:Full Resuscitation Vital Signs & Weight: Vital Signs (12 hours) Temp Pulse Resp BP BP BP Pulse Ox 08/05/18 09:29 151/66 H 08/05/18 07:40 97.9 F 91 20 151/66 H 99 08/05/18 05:10 97.9 F 94 16 97 08/05/18 04:21 97.9 F 94 16 199/84 H 97 08/05/18 04:01 94 199/84 H 08/05/18 03:05 97.5 F L 99 16 176/79 H 98 Weight Weight 151 lb 11.2 oz I&O: 08/04/18 08/05/18 08/06/18 06:59 06:59 06:59 Intake Total 290 Output Total 350 Balance -60 Result Diagrams: 08/05/18 04:29 08/05/18 04:29 Phys Exam - Physical Examination Constitutional: NAD Observed to have sleep apnea Mild periorbital edema. Respiratory: no wheezing, no rales, no rhonchi, clear to auscultation bilateral Cardiovascular: RRR, no significant murmur, no rub Gastrointestinal: soft, non-tender, no distention, positive bowel sounds Trace edema. Dx/Plan (1) Hypertensive urgency Code(s): I16.0 - HYPERTENSIVE URGENCY Status: Acute Comment: Required IV meds initially. Back on oral Clonidine 0.3 bid. BP is better. (2) Wjiyc-tf-qvnppcz renal failure Code(s): N17.9 - ACUTE KIDNEY FAILURE, UNSPECIFIED; N18.9 - CHRONIC KIDNEY DISEASE, UNSPECIFIED Status: Acute Comment: D/w Dr. Julio. He has started the albumin. Concerning for progression of the renal disease. Has FU appt with Renal team in [place] on Wednesday . (3) Nausea & vomiting Code(s): R11.2 - NAUSEA WITH VOMITING, UNSPECIFIED Status: Resolved (4) Asthma Code(s): J45.909 - UNSPECIFIED ASTHMA, UNCOMPLICATED Status: Chronic Qualifiers: (5) CAD (coronary artery disease) Code(s): I25.10 - ATHSCL HEART DISEASE OF [place] CORONARY ARTERY W/O ANG PCTRS Status: Chronic Qualifiers: (6) CKD (chronic kidney disease) stage 3, GFR 30-59 ml/min Status: Chronic (7) H/O kidney transplant Status: Chronic (8) Immunosuppressed status Code(s): D89.9 - DISORDER INVOLVING THE IMMUNE MECHANISM, UNSPECIFIED Status: Chronic (9) Altered mental state Code(s): R41.82 - ALTERED MENTAL STATUS, UNSPECIFIED Status: Resolved Comment: Unclear etiology. Fourth admission for similar symptoms. In this case it appears to be related to a hypertensive encephalopathy. (10) Sleep apnea Code(s): G47.30 - SLEEP APNEA, UNSPECIFIED Status: Acute Comment: Discussed with patient's . She needs outpatient sleep study. - Plan * As above.
[2018-08-05] MEDS: Ferrous Sulfate 325 MG TAB PO SCH (18:05)
[2018-08-05] MEDS ORDERED: Sodium Chloride 0.9% 10 ML ONE (20:15)
[2018-08-05] MEDS: Atorvastatin Calcium 20 MG TAB PO SCH (20:39)
[2018-08-05] MEDS: traZODone HCl 50 MG TAB PO SCH (22:16)
[2018-08-06] MEDS ORDERED: Sodium Chloride 0.9% 10 ML ONE ×2 (00:03→05:36)
[2018-08-06] MEDS: Albumin 25% 25 GM/100 ML BOT IVPB SCH ×4 (00:15→17:42)
[2018-08-06 01:40] LABS: Amphetamine Not Detected (NotDetected); Barbiturates Screen Not Detected (NotDetected); Benzodiazepine Screen Detected (NotDetected); Cocaine Metabolite Screen Not Detected (NotDetected); Medtox Control Line Valid? VALID (VALID); Medtox Reader # READER 4; Methadone Not Detected (NotDetected); Methamphetamine Not Detected (NotDetected); Opiate Screen Detected (NotDetected); Oxycodone Screen Not Detected (NotDetected); Phencyclidine (PCP) Not Detected (NotDetected); THC/Cannabinoid Screen Not Detected (NotDetected); Tricyclic Screen Not Detected (NotDetected)
[2018-08-06 04:47] LABS: #Eosinphils 0.1 thou/uL (0.0-0.7); #Lymphocytes 0.9 thou/uL (1.20-3.40); #Monocytes 0.8 thou/uL (0.11-0.59); #Neutrophils 10.6 thou/uL (1.40-6.50); %Basophils 0.2 % (0.0-1.0); %Eosinophils 1.1 % (0.0-10.0); %Monocytes 6.6 % (0.0-10.0); %Neutrophils 85.1 % (42.0-75.0); Hemoglobin 7.4 g/dL (12.0-16.0); Mean Corpuscular HGB CONC 32.5 g/dL (32.0-36.0); Mean Corpuscular Hemoglobin 29.9 pg (27.0-31.0); Mean Corpuscular Volume 92.1 fL (78.0-98.0); Mean Platelet Volume 7.7 fL (7.4-10.4); Platelet Count 198 thou/uL (130-400); RBC Distribution Width 14.6 % (11.5-14.5); Red Blood Cell (RBC) Count 2.48 mill/uL (4.20-5.40); White Blood Cell (WBC) Count 12.4 thou/uL (4.8-10.8)
[2018-08-06 04:57] LABS: Anion Gap 15 mmol/L (10-20); BUN (Urea Nitrogen) 30 mg/dL (9.8-20.1); Calc. Creatinine Clearance 19 mL/min (70-130); Calcium 8.3 mg/dL (7.8-10.44); Carbon Dioxide 19 mmol/L (23-31); Chloride 108 mmol/L (98-107); Estimated GFR-MDRD 14; Glucose 87 mg/dL (80-115); Sodium 138 mmol/L (136-145)
[2018-08-06] MEDS: Metoclopramide HCl 10 MG TAB PO SCH ×2 (08:19→20:56)
[2018-08-06] MEDS: cloNIDine 0.3 MG TAB PO SCH ×2 (08:19→20:55)
[2018-08-06] MEDS: predniSONE 5 MG TAB PO SCH (08:19)
[2018-08-06] MEDS: Calcitriol 0.25 MCG CAP PO SCH (08:19)
[2018-08-06] MEDS: Ferrous Sulfate 325 MG TAB PO SCH ×2 (08:20→16:08)
[2018-08-06] MEDS: PARoxetine 20 MG TAB PO SCH (08:21)
[2018-08-06] MEDS: ALPRAZolam 0.5 MG TAB PO SCH ×2 (08:21→20:56)
[2018-08-06] MEDS: Loperamide HCl 2 MG CAP PO SCH ×2 (08:21→20:56)
[2018-08-06] MEDS: Tacrolimus 1 MG CAP PO SCH ×2 (09:04→20:57)
[2018-08-06] MEDS: Mycophenolate 250 MG CAP PO SCH ×2 (09:04→20:56)
[2018-08-06] MEDS: Sodium Bicarbonate Tab 325 MG TAB PO SCH ×2 (09:04→20:55)
[2018-08-06] MEDS: Sodium Chloride 0.9% 1,000 ML IV SCH ×3 (10:40→22:57)
--- NOTE | 2018-08-06 11:00 | PRG ---
DATE OF SERVICE: 08/06/2018 SERVICE: Renal Medicine. SUBJECTIVE: Ms. Park is a 62-year-old white female, who was admitted for confusion. The Renal S erlizzettee also saw the patient due to her status post renal transplant. Creatinine was initially noted to be about 3.2 at that time. Salt poor albumin was given. She was also noted to be anemic and was started on weekly Epogen. Her mentation is much improved. She has continued to take her current imm unosuppressive regimen. 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 Please note that BK virus was done a month ago a nd was negative. No other complaints today. She is feeling better. She still has decreased p.o. in take. OBJECTIVE: VITAL SIGNS: Blood pressure 147/68, heart rate 78, respiratory rate 22, temperature 97.7, pulse ox 9 5%. GENERAL EXAM: Noted to be awake, alert, comfortable, not in distress. SKIN: Adequate turgor. HEENT: She has slightly pale conjunctivae, anicteric sclerae. NECK: No neck mass, no carotid bruits, no JVD. CHEST: No deformities. LUNGS: Decreased breath sounds. HEART: Normal sinus rhythm. No murmur, no gallops, no rubs. ABDOMEN: Globular, soft, nontender. No masses. Renal allograft is nontender. EXTREMITIES: No edema. Medications of 08/06/2018 were reviewed. LABORATORY DATA: Laboratories of 08/06/2018, white count 12.4, hemoglobin 7.4, sodium 138, potassium 4, chloride 108, carbon dioxide 19, BUN 30, creatinine 3.33, GFR 14 mL per minute. Calcium 8.3. ASSESSMENT AND PLAN: 1. Status post cadaveric renal transplant - creatinine is stable. However, the creatinine is relati vely unchanged at the value of 3.3. Again, I could not rule out the possibility of a prerenal compon ent. She has been receiving salt-poor albumin without improvement in the renal function. She will c ontinue her current immunosuppressive regimen. We will start normal saline 100 mL an hour with this patient. Please note, I reviewed the chest x-ray and the x-ray shows no evidence of congestive heart failure. 2. Mental status change - again, this is probably drug induced. We will hold off all sedatives with this patient. 3. Anemia, continuing weekly Epogen, p.r.n. blood transfusion. 4. Status post cadaveric renal transplant. Continue immunosuppressive regimen. Recheck basic metab olic panel and CBC in a.m.
--- NOTE | 2018-08-06 13:24 | PDOC.PN ---
- Subjective Encounter Start Date: 08/06/18 Encounter Start Time: 10:05 Feeling better. No specific complaints today. Had some SOB last night. Required neb. - Objective Resuscitation Status: Resuscitation Status FULL:Full Resuscitation Vital Signs & Weight: Vital Signs (12 hours) Temp Pulse Resp BP BP Pulse Ox 08/06/18 11:31 98.0 F 69 18 186/80 H 95 08/06/18 08:28 97.7 F 78 22 H 147/68 H 95 08/06/18 04:50 97 08/06/18 04:00 97.6 F 72 24 H 177/73 H 97 08/06/18 03:45 93 L 08/06/18 03:34 26 H 93 L Weight Weight 148 lb 8 oz I&O: 08/05/18 08/06/18 08/07/18 06:59 06:59 06:59 Intake Total 290 780 Output Total 350 280 Balance -60 500 Result Diagrams: 08/06/18 04:25 08/06/18 04:25 Phys Exam - Physical Examination Constitutional: NAD Respiratory: no wheezing, no rales, no rhonchi, clear to auscultation bilateral Decreased BS. Dx/Plan (1) Hypertensive urgency Code(s): I16.0 - HYPERTENSIVE URGENCY Status: Acute Comment: Required IV meds initially. Back on oral Clonidine 0.3 bid. BP is better. (2) Olydf-yl-caaycpa renal failure Code(s): N17.9 - ACUTE KIDNEY FAILURE, UNSPECIFIED; N18.9 - CHRONIC KIDNEY DISEASE, UNSPECIFIED Status: Acute Comment: D/w Dr. Julio. He has started the albumin. Concerning for progression of the renal disease. Has FU appt with Renal team in [place] on Wednesday . (3) Nausea & vomiting Code(s): R11.2 - NAUSEA WITH VOMITING, UNSPECIFIED Status: Resolved (4) Asthma Code(s): J45.909 - UNSPECIFIED ASTHMA, UNCOMPLICATED Status: Chronic Qualifiers: (5) CAD (coronary artery disease) Code(s): I25.10 - ATHSCL HEART DISEASE OF [place] CORONARY ARTERY W/O ANG PCTRS Status: Chronic Qualifiers: (6) CKD (chronic kidney disease) stage 3, GFR 30-59 ml/min Status: Chronic (7) H/O kidney transplant Status: Chronic (8) Immunosuppressed status Code(s): D89.9 - DISORDER INVOLVING THE IMMUNE MECHANISM, UNSPECIFIED Status: Chronic (9) Altered mental state Code(s): R41.82 - ALTERED MENTAL STATUS, UNSPECIFIED Status: Resolved Comment: Unclear etiology. Fourth admission for similar symptoms. In this case it appears to be related to a hypertensive encephalopathy. Could be related to positive drug screen for opioids. (10) Sleep apnea Code(s): G47.30 - SLEEP APNEA, UNSPECIFIED Status: Acute Comment: Discussed with patient's . She needs outpatient sleep study. - Plan * Appreciate Dr. Julio. * Patient tested positive for opioids although she firmly states that she has not been taking any. * Continue per Dr. Julio's plan for kidney.
[2018-08-06] MEDS: hydrALAZINE 20 MG/ML VIAL SLOW IVP PRN ×2 (13:33→16:18)
[2018-08-06] MEDS ORDERED: ALPRAZolam 0.25 MG TAB PO SCH (16:00)
[2018-08-06] MEDS: Nicotine 21 MG PATCH TOP SCH (18:44)
--- NOTE | 2018-08-06 20:52 | EKG ---
Test Reason : Blood Pressure : / mmHG Vent. Rate : 082 BPM Atrial Rate : 082 BPM P-R Int : 136 ms QRS Dur : 068 ms QT Int : 386 ms P-R-T Axes : 071 -23 043 degrees QTc Int : 450 ms Normal sinus rhythm Low voltage QRS Borderline ECG Confirmed by WILLOW GARCIA ([id number]), editor magazine SAMUEL BAEZ ([id number]) on 08/06/2018 8:51:39 PM Referred By: Confirmed By:WILLOW GARCIA
[2018-08-06] MEDS: traZODone HCl 50 MG TAB PO SCH (20:55)
[2018-08-06] MEDS: Atorvastatin Calcium 20 MG TAB PO SCH (20:56)
[2018-08-06] MEDS: Acetaminophen 325 MG TAB PO PRN (22:57)
[2018-08-07 05:10] LABS: #Eosinphils 0.1 thou/uL (0.0-0.7); #Lymphocytes 0.9 thou/uL (1.20-3.40); #Neutrophils 9.5 thou/uL (1.40-6.50); %Basophils 0.2 % (0.0-1.0); %Eosinophils 1.1 % (0.0-10.0); %Lymphocytes 7.5 % (21.0-51.0); %Neutrophils 82.2 % (42.0-75.0); Hemoglobin 7.7 g/dL (12.0-16.0); Mean Corpuscular HGB CONC 32.4 g/dL (32.0-36.0); Mean Corpuscular Hemoglobin 29.4 pg (27.0-31.0); Mean Corpuscular Volume 90.9 fL (78.0-98.0); Mean Platelet Volume 8.4 fL (7.4-10.4); Platelet Count 167 thou/uL (130-400); RBC Distribution Width 14.4 % (11.5-14.5); Red Blood Cell (RBC) Count 2.62 mill/uL (4.20-5.40); White Blood Cell (WBC) Count 11.5 thou/uL (4.8-10.8)
[2018-08-07 05:12] LABS: Anion Gap 14 mmol/L (10-20); BUN (Urea Nitrogen) 31 mg/dL (9.8-20.1); Calc. Creatinine Clearance 19 mL/min (70-130); Calcium 8.4 mg/dL (7.8-10.44); Carbon Dioxide 20 mmol/L (23-31); Chloride 108 mmol/L (98-107); Estimated GFR-MDRD 14; Glucose 93 mg/dL (80-115); Potassium 3.7 mmol/L (3.5-5.1); Sodium 138 mmol/L (136-145)
[2018-08-07] MEDS: Acetaminophen 325 MG TAB PO PRN ×3 (05:56→19:38)
[2018-08-07] MEDS: Loperamide HCl 2 MG CAP PO SCH ×2 (08:51→20:02)
[2018-08-07] MEDS: ALPRAZolam 0.5 MG TAB PO SCH ×2 (08:51→23:25)
[2018-08-07] MEDS: predniSONE 5 MG TAB PO SCH (08:52)
[2018-08-07] MEDS: cloNIDine 0.3 MG TAB PO SCH ×2 (08:52→20:02)
[2018-08-07] MEDS: Ferrous Sulfate 325 MG TAB PO SCH ×2 (08:52→16:51)
[2018-08-07] MEDS: PARoxetine 20 MG TAB PO SCH (08:53)
[2018-08-07] MEDS: Metoclopramide HCl 10 MG TAB PO SCH ×2 (08:53→20:03)
[2018-08-07] MEDS: Calcitriol 0.25 MCG CAP PO SCH (08:53)
[2018-08-07] MEDS: Tacrolimus 1 MG CAP PO SCH ×2 (08:54→20:02)
[2018-08-07] MEDS: Mycophenolate 250 MG CAP PO SCH ×2 (08:54→20:03)
[2018-08-07] MEDS: Sodium Bicarbonate Tab 325 MG TAB PO SCH ×2 (08:55→20:02)
--- NOTE | 2018-08-07 11:06 | PRG ---
DATE OF SERVICE: 08/07/2018 SUBJECTIVE: Ms. Park is a 62-year-old white female, who status post renal transplant and admitte d for mental status change. Mentation is much improved. The feeling this could have been related fr om her pain meds and sedatives. This morning, she has no new complaints. She is feeling better. We are following her up for renal transplant. Renal function has been relatively stable. However, it remained unimproved in spite of colloid and crystalloid infusion. Creatinine currently is at 3.4 and yesterday this was 3.33. She does have history of proteinuria. The concern is whether she may have recurrence of her FSGS on her transplanted kidney. She does have an appointment with the renal [facility] tomorrow. No complaints of chest pain, no shortness of breath. She did have some epi sodes of anxiety. PHYSICAL EXAMINATION: VITAL SIGNS: Blood pressure is 187/80, heart rate 76, respiratory rate 18, temperature 97.8, pulse o x 93%. GENERAL: Noted to be awake, alert, comfortable, not in distress. SKIN: Adequate turgor. HEENT: Slightly pale conjunctivae, anicteric sclerae. NECK: No neck mass, no carotid bruits, no JVD. CHEST: No deformities. LUNGS: Clear breath sounds. HEART: Normal sinus rhythm. No murmur, no gallops, no rubs. ABDOMEN: Globular, soft, nontender, no masses. EXTREMITIES: No edema, no deformities. MEDICATIONS: On 08/07/2018 - reviewed. LABORATORY DATA: On 08/07/2018, sodium 138, potassium 3.7, chloride 108, carbon dioxide 20, BUN 31, creatinine 3.4, GFR 14 mL per minute, calcium 8.4. On 08/04/2018, renal ultrasound shows mild transplant kidney hydronephrosis. Hemoglobin is noted at 7.7, hematocrit 23.8. ASSESSMENT AND PLAN: 1. Anemia - on iron supplementation and on weekly Epogen. 2. Status post renal transplant. Creatinine remains and relatively unchanged and unimproved at 3.4. As previously mentioned, the issue is whether she may have had a recurrent of her FSGS. Currently, we will continue immunosuppressive regimen. She has an appointment with the [facility] tomorrow. 3. Mental status change clinically much improved. Overall, agree with current management.
[2018-08-07 11:09] LABS: Tacrolimus 2.4 ng/mL (2.0-20.0)
[2018-08-07] MEDS ORDERED: methylPREDNISolone Sod Succ/PF 125 MG/2 ML VIAL IVP SCH (15:00)
[2018-08-07] MEDS: Sodium Chloride 0.9% 1,000 ML IV SCH ×2 (15:14→20:04)
[2018-08-07] MEDS: hydrALAZINE 20 MG/ML VIAL SLOW IVP PRN (15:32)
--- NOTE | 2018-08-07 16:13 | PDOC.EVN ---
Event Note - Event Note Event Note: See dictated note for additional information. Patient has improved with her mental status. Attempted to get up and around today. Room air oxygen saturation 82-89%. Her lung exam is only notable for diminished breath sounds. She is fairly asymptomatic with that saturation. She is a long-term daily smoker for years and this is all consistent with COPD. I discussed with the patient and her . She needs home oxygen therapy around the clock. That will be lifelong. They are clear that they will be leaving by 6 pm whether the oxygen is here or not.
--- NOTE | 2018-08-07 16:37 | PRG ---
DATE OF SERVICE: 08/07/2018 SUBJECTIVE: I saw the patient earlier this morning. She said she was feeling better. It was felt like she was breathing more comfortably. OBJECTIVE: VITAL SIGNS: Temperature was 97.8, pulse 76, respirations 18. She was at O2 sat of 93% on 3 liters. BP was 187/80. GENERAL: The patient did appear to be more awake and conversant and appropriate. HEART: Regular, without murmurs. LUNGS: Have diminished breath sounds throughout without significant wheezes or rales. ABDOMEN: Soft, nontender, nondistended. EXTREMITIES: With no edema. LABORATORY DATA: White count was 11.5, hemoglobin 7.7, platelets 167. Creatinine is at 3.4 with a BUN of 31. IMPRESSION AND PLAN: 1. Altered mental status. Initially felt like this could be related to elevated hypertension. The patient was very hypertensive on admission. However , subsequently her urine drug screen did come back positive for opioids. With her permission, I discussed this with her and her this morning. Her reports that he was unaware of her taking the opioids, but in his mind he has absolutely no doubt that that is why she had the altered mental status. He has tried to put them away, but he has not locked them up. He stated that as soon as he could find the dyson to his filing cabinet, he would be locking them away. The patient initially denied taking any opioids, but when he said he knew how hard it was to quit, she was tearful an just nodded to the affirmative. 2. Chronic kidney disease, stage 3. 3. History of transplanted kidney. Dr. Julio is following. The patient remains on her immune suppressing medications and antirejection medications. Dr. Julio is comfortable discharging the patient from that perspective and she has follow up tomorrow with her transplant team in [place]. 4. Pulmonary: The patient has a history of daily smoking for many years and chronic obstructive pulmonary disease. Her lungs are clear but diminished throughout. She had attempted to get up today and her sats were in the 82%-89% range on room air. She was largely asymptomatic. She was able to get up and around a bit that her oxygen levels did come down into the 70s with ambulation. I discussed with the patient and her the need to get on some oxygen; however, they are adamant that they want to leave by 6:00 today so that they can get to the appointment tomorrow in [place]. The patient's was quite aggressive, made it very clear that he thinks that we do not know how to handle her situation, we don't know what we are doing and that we are doing absolutely nothing for her. He wants to get her to [place] where all the experts are so that they can address her situation. He is only focused on the kidneys. Nonetheless, he is adamant that they will leave regardless of whether she has oxygen available or not. The patient unfortunately is very tenuous for discharge, but needs to get that appointment tomorrow. 5. Nausea and vomiting, resolved. 6. Hypertension. The patient initially presented with very high blood pressure. She was put back on her clonidine per recommendations of Dr. Julio. Her blood pressure continues to be somewhat elevated and likely gave a p.r.n. for that as well. 7. Coronary artery disease, stable. 8. Obstructive sleep apnea. The patient was observed to have some obstructive sleep apnea while she was here. She was encouraged to follow up with her PCP and get sleep apnea testing. 9. Anemia in CKD. Hemoglobin is low, but partially dilutional. Dr. Julio has not recommended transfusion. DISPOSITION: The patient's oxygen saturations on room air are quite low. I would not be comfortable discharging the patient until we at least have some home oxygen set up for her. The patient's has made it clear that they are leaving regardless at 6:00 p.m., so they will need to leave against medical advice. ROMÁN
[2018-08-07] MEDS ORDERED: hydrALAZINE 20 MG/ML VIAL SLOW IVP SCH (18:00)
[2018-08-07] MEDS ORDERED: ALPRAZolam 0.25 MG TAB PO SCH (18:00)
[2018-08-07] MEDS: Nicotine 21 MG PATCH TOP SCH (18:06)
[2018-08-07] MEDS: traZODone HCl 50 MG TAB PO SCH (20:02)
[2018-08-07] MEDS: Atorvastatin Calcium 20 MG TAB PO SCH (20:03)
--- NOTE | 2018-08-07 21:45 | PDOC.EVN ---
Event Note - Event Note Event Note: Received a call from Patient Management that [facility] had accepted the patient in transfer. They will call at 5 am to give final approval. I spoke earlier with Dr. Laura (nephrology) and the hospitalist did not need to a "doc to doc" with me.
--- NOTE | 2018-08-07 22:44 | PRG ---
DATE OF SERVICE: 08/07/2018 Waiting on the patient's oxygen to come through and hopes to get that for the patient with the threat that they are going to leave AMA by 6:00 p.m. The patient had increased anxiety. Her blood pressure was elevated and she required more of the IV hydralazine to control the blood pressure. She also had requested Xanax which she was given. The patient improved. The transplant case manager did discuss the possibility of a hospital to hospital transfer given the fact that her blood pressure was remaining elevated and we were uncomfortable with discharge at that time. They were amenable to initiate that process. The transplant case manager notified the transfer center. The transfer center called me, and I did have a doctor to doctor phone call with Dr. Laura who is covering for Dr. Sweeney. He was willing to accept the patient; however, we were initially told that there were no beds. The transfer center followed up and called back at [phone] indicating that they would put the patient on a waiting list to transfer her with the next available bed. The patient's had indicated that he would be here at 9:00 in the morning to take the patient down there by private vehicle if nothing else had occurred prior to that time. I notified Dr. Julio of the situation as well. I have also discussed the case at length with the nighttime physician, Dr. Swanson and made him aware of her blood pressure issues. I did discuss with the night nurse who have taken the patient' s blood pressure manually and noted that it was only 20 points lower than we were getting with the machine. She got a systolic of 180 and diastolic of 80. I encouraged her to continue to use manual checks for the blood pressure. In the meantime, we will continue with nebulizer treatments, supplemental oxygen. She did receive a dose of Solu-Medrol today and she is on low dose oral prednisone as part of her antirejection medication. ROMÁN
[2018-08-08] MEDS: hydrALAZINE 20 MG/ML VIAL SLOW IVP PRN (01:14)
[2018-08-08] MEDS: Acetaminophen 325 MG TAB PO PRN (03:25)
[2018-08-08 04:06] VITALS: BP 164/74; TEMP 98.1
[2018-08-08] MEDS: Ondansetron HCl/PF 4 MG/2 ML Vial SLOW IVP PRN (04:11)
[2018-08-08 05:18] LABS: #Lymphocytes 0.6 thou/uL (1.20-3.40); #Monocytes 0.9 thou/uL (0.11-0.59); #Neutrophils 8.5 thou/uL (1.40-6.50); %Basophils 0.1 % (0.0-1.0); %Eosinophils 0.1 % (0.0-10.0); %Lymphocytes 5.6 % (21.0-51.0); %Monocytes 8.7 % (0.0-10.0); %Neutrophils 85.5 % (42.0-75.0); Hemoglobin 8.2 g/dL (12.0-16.0); Mean Corpuscular Hemoglobin 29.6 pg (27.0-31.0); Mean Corpuscular Volume 92.5 fL (78.0-98.0); Mean Platelet Volume 8.8 fL (7.4-10.4); Platelet Count 195 thou/uL (130-400); RBC Distribution Width 14.5 % (11.5-14.5); Red Blood Cell (RBC) Count 2.78 mill/uL (4.20-5.40)
[2018-08-08 05:25] LABS: Anion Gap 16 mmol/L (10-20); BUN (Urea Nitrogen) 30 mg/dL (9.8-20.1); Calc. Creatinine Clearance 21 mL/min (70-130); Calcium 8.4 mg/dL (7.8-10.44); Carbon Dioxide 15 mmol/L (23-31); Chloride 108 mmol/L (98-107); Estimated GFR-MDRD 15; Glucose 123 mg/dL (80-115); Potassium 4.3 mmol/L (3.5-5.1); Sodium 135 mmol/L (136-145)
--- NOTE | 2018-08-08 15:37 | DIS ---
DATE OF ADMISSION: 08/04/2018 DATE OF DISCHARGE: 08/08/2018 DISCHARGE DIAGNOSES: 1. Altered mental status. 2. Hypertensive urgency. 3. Acute on chronic renal failure. 4. History of cadaveric renal transplant. 5. Mild demand ischemia. 6. Anemia. 7. Mild hydronephrosis of the transplanted kidney. 8. Obstructive sleep apnea. 9. Severe anxiety. 10. Chronic obstructive pulmonary disease. 11. Chronic pain syndrome. 12. Tobacco abuse. 13. Peripheral edema. 14. Urine drug screen positive for opioids and benzodiazepines. 15. Possible congestive heart failure. HISTORY: This patient is a 62-year-old female with the above-mentioned history of the transplanted juan manuel aguero kidney, who is followed at [place] at the transplant center. The patient has had several pr ior admissions for similar symptoms of altered mental status, primarily manifest obtundation. The pa carolina had been discharged from this facility about a month prior with very similar symptoms, at that time her workup indicated that she likely had had complications from taking medications including her opioids that had led to the altered mental status. At that time, the patient's creatinine had bumpe d a bit and at the time of discharge was down to 2.2. She was encouraged to follow up with her trans plant team and with Dr. Julio, who is a local foot specialist who is following her. At the time of that d ischarge, the patient had been off of opioids throughout her stay and had not smoked. She indicated that she was going to continue to stay off of the opioids and smoking. The patient returned to the e mergency room with a very similar presentation. Her found her in the morning obtunded and "g urgling" and she could not be easily roused and the patient brought to the emergency department. The patient was apparently already awake at the time she arrived at the emergency department, and she re ported she had been feeling generally weak since she left the hospital the previous admission. Her i nitial blood pressure was measured at 218/107 and she had some mild respiratory distress and some whe ezes were audible. She also had some lower extremity edema. Her chest x-ray was negative. Head CT was negative. EKG showed no evidence of ischemic changes. Her white count was 14.3, although is not ed the patient is on daily prednisone as an antirejection medication. Hemoglobin was 9.4, platelets were 199. Initial troponin was 0.177, 0.173. Sodium 139, potassium 4.9, chloride 110, CO2 22, creatinine was 3.23 with BUN of 31. Uric acid 7.2. LDH was 305. BNP was 974. Again, her chest x- ray showed no evidence of pulmonary edema. In the emergency department, the patient received Ativan, Zofran, hydralazine, sublingual nitroglycerin, transdermal nitroglycerin to improve his blood pressu re as well as Tylenol and given a DuoNeb nebulizer. The patient was initially thought to possibly payne ve a CHF exacerbation and a syncopal episode and peripheral edema. She was given a dose of Lasix in the emergency department prior to coming to the floor. HOSPITAL COURSE: The patient was admitted to the floor. She was maintained on supplemental oxygen a nd p.r.n. nebulizer treatments. Her lungs remained clear. Subsequent her edema resolved. Dr. Sumanth de león consulted and followed her from a renal perspective. She had diuretics discontinued because of he r underlying renal situation. Given her slight elevation of the creatinine, a renal ultrasound was o btained which revealed a mild transplant kidney hydronephrosis. Dr. Julio was concerned that the patie nt may have some recurrence of her FSGS and we maintained her antirejection medications. A urine victorino g screen did return positive for benzodiazepines and opioids, although the patient had indicated she had not been taking opioids. With her permission, I discussed that in front of her and he in dicated that he had no doubt in his mind that she had been taking the opioids and that was the reason that she was altered. He indicated that he had tried to take those away and would be locking them u p in a filing cabinet as soon as he could find his dyson. The patient had a telemetry which remained u nremarkable. She had serial troponins which minimally increased to 0.177 and 0.23. The patient has had a negative cardiac stress test about 8 months prior, which was negative. At that time, her eject ion fraction was 74%. The patient appeared to be relatively stable from the cardiac perspective. Th e patient continued to have significant amounts of anxiety with intermittent spikes in her blood pres sure and requiring hydralazine IV. Per Dr. Julio's recommendation, she was resumed on 0.3 of clonidine p.o. b.i.d. Frequently her blood pressure spikes could be related to significant anxiety. She woul d also experience some shortness of breath during those times. It was felt that the patient might ac tually be having some opioid withdrawal given that it was unclear what and how much she had actually been taking and some opioids were ordered; however, she declined to take any. Her renal function rem ained relatively steady between the ranges of 3.14 and 3.40, and she also had her hemoglobins followe d closely. Her hemoglobin initially was at 9.4 after a couple of days dropped as low as 7.7 and on t day of discharge, it was at 8.2, and she did not require transfusion at any point. After a couple of days, the patient's mental status had essentially improved back to her baseline as was primarily marked by significant anxiety. She did require some occasional benzodiazepines to help with this. S he had an appointment on 08/08/2018, with Dr. Gambino at the transplant clinic. It was felt that it was important to try to get the patient to that appointment so on 08/07/2018, tried to get the patien t up and around in anticipation of trying to get her home. At that time; however, her room air oxyge n saturations were ranging from 83%-89%. Her lungs were clear. There was no evidence of pulmonary e moi and this was felt to be secondary to longstanding COPD from a significant tobacco abuse. With a ttempted ambulation, she drops as low as 70s. At that point in an attempt to try to still get her ho me so that she could go to her appointment, so we started working on getting her set up for some home oxygen. Being Wednesday that was challenging, but we were making progress, but the patient's kee ecame somewhat upset. He indicated that we were not doing anything for her and we did not know what we were doing and she needed to be in [place] where her transplant doctor was. He stated that we did not know what was wrong with her kidney and that was the primary focus. He also indicated that he w as upset because he could have been doing other things on the day of discharge such as taking care of his animals and was not happy about the delay trying to obtain the oxygen. He did lash out and use some profanity. Ultimately in the midst of that, the patient became more anxious and her blood press ure went up again. It was requiring additional doses of IV hydralazine. With that discussed with juan alberto pritchard embedded case manager and felt that she was not appropriate for discharge in that condition. Therefore, we offered to try to get the patient transferred to [facility] in [place]. They were amenable to that, b ut indicated that they would be leaving by 9:00 in the morning at that meant her had to put i n his personal vehicle and drive her to the hospital there. I had a doctor to doctor conversation wi Dr. Laura, who was covering for Dr. Sweeney. He accepted the patient, however, we initially told that there were no beds. The patient management worked with [facility] and ultimately we carmen pritchard able to secure a bed to the patient to be transferred to the hospitalist service. We ensured the p atcarlos had a records and CD of the images to go with her. Anticipated discharge at 5:00 a.m. so that the patient could arrive prior to the accepting hospitalist going off shift. The [facility] was [facility] at that time. DISCHARGE VITAL SIGNS: Temperature was 98.1, pulse 82, respirations 23. She was 97% on 2-1/2 liters nasal cannula, and blood pressure was 164/74. The patient will go by ground transportation and the remainder of her treatment will be per the team in [place].
== END 2018-08-08 05:20 | disposition short-term general hospital (02) | DRG 683 ==
LOC: ERS 06:44 → ERHOLD 09:56 → 2SW 12:48 → OBSVTOIN 22:43 → 2NO 08-05 03:53
PROVIDERS: ADMIT Family Medicine; ATTEND Family Medicine
DX: N17.9 Acute kidney failure, unspecified (principal); Z94.0 Kidney transplant status; I67.4 Hypertensive encephalopathy; I24.8 Other forms of acute ischemic heart disease; I16.0 Hypertensive urgency; G89.29 Other chronic pain; M54.9 Dorsalgia, unspecified; F17.210 Nicotine dependence, cigarettes, uncomplicated; E78.5 Hyperlipidemia, unspecified; I50.9 Heart failure, unspecified; F03.90 Unspecified dementia, unspecified severity, without behavioral disturbance, psychotic disturbance, mood disturbance, and anxiety; J44.9 Chronic obstructive pulmonary disease, unspecified; D72.829 Elevated white blood cell count, unspecified; F41.9 Anxiety disorder, unspecified; I25.10 Atherosclerotic heart disease of native coronary artery without angina pectoris; N18.3 Chronic kidney disease, stage 3 (moderate); G47.33 Obstructive sleep apnea (adult) (pediatric); N13.30 Unspecified hydronephrosis; F11.90 Opioid use, unspecified, uncomplicated; D63.1 Anemia in chronic kidney disease; Z91.040 Latex allergy status; Z86.73 Personal history of transient ischemic attack (TIA), and cerebral infarction without residual deficits; Z82.49 Family history of ischemic heart disease and other diseases of the circulatory system
CPT/HCPCS: 36415; 70450; 71045; 76770; 80048; 80053; 80197; 80306; 81003; 81015; 82553; 82570; 83615; 83735; 83880; 84100; 84156; 84484; 84550; 85025; 93005; 93010; 94640; 96374; 96375; A4216; J0360; J1940; J2060; J2270; J2405; J2930; J3475; J7507; J7517; J7620; P9047; Q0162; Q4081

== ENCOUNTER 2018-11-16 08:57 | Inpatient (IN) | payer MEDICARE ==
[2018-11-16 09:38] LABS: #Eosinphils 0.1 thou/uL (0.0-0.7); #Lymphocytes 0.6 thou/uL (1.20-3.40); #Monocytes 0.5 thou/uL (0.11-0.59); #Neutrophils 13.6 thou/uL (1.40-6.50); %Basophils 0.2 % (0.0-1.0); %Eosinophils 0.5 % (0.0-10.0); %Lymphocytes 3.8 % (21.0-51.0); %Monocytes 3.2 % (0.0-10.0); %Neutrophils 92.3 % (42.0-75.0); Hemoglobin 10.6 g/dL (12.0-16.0); Mean Corpuscular HGB CONC 30.4 g/dL (32.0-36.0); Mean Corpuscular Hemoglobin 27.8 pg (27.0-31.0); Mean Corpuscular Volume 91.5 fL (78.0-98.0); Mean Platelet Volume 8.9 fL (7.4-10.4); Platelet Count 255 thou/uL (130-400); RBC Distribution Width 16.5 % (11.5-14.5); White Blood Cell (WBC) Count 14.7 thou/uL (4.8-10.8)
[2018-11-16 09:55] LABS: ALT (SGPT) Less than 7 U/L (8-55); AST (SGOT) 9 U/L (5-34); Albumin 3.1 g/dL (3.4-4.8); Alkaline Phosphatase 69 U/L (40-150); Anion Gap 15 mmol/L (10-20); BUN (Urea Nitrogen) 58 mg/dL (9.8-20.1); Bilirubin, Total 0.2 mg/dL (0.2-1.2); Calc. Creatinine Clearance 0 mL/min (70-130); Calcium 8.2 mg/dL (7.8-10.44); Carbon Dioxide 19 mmol/L (23-31); Chloride 108 mmol/L (98-107); Estimated GFR-MDRD 11; Globulin 2.1 g/dL (2.4-3.5); Glucose 104 mg/dL (80-115); Lipase 48 U/L (8-78); Protein, Total 5.2 g/dL (6.0-8.3); Sodium 137 mmol/L (136-145)
[2018-11-16 10:04] LABS: Magnesium 1.6 mg/dL (1.6-2.6); Phosphorus 6.2 mg/dL (2.3-4.7)
[2018-11-16 10:32] LABS: Bilirubin Negative (Negative); Blood, Urine Small (Negative); Clarity CLOUDY (Clear); Glucose, Urine (Dipstick) Negative (Negative); Leukocyte Large (Negative); Nitrite Negative (Negative); Protein, Urine (Dipstick) 300 mg/dL (Neg-Trace); Urobilinogen 0.2 mg/dL (0.2-1.0); pH, Urine 6.5 (5.0-9.0)
[2018-11-16 10:35] LABS: Hyaline Casts/LPF 0-3 HYALINE CAST LPF (0-3 Hyaline); Squamous Epithelial None Seen HPF (0-3); Yeast-AUWi Flag 319.6 (0-25.0)
--- NOTE | 2018-11-16 10:43 | RAD ---
PORTABLE CHEST ONE VIEW: Date: 11-16-18 Time: 10:10 a.m. History: Shortness of breath. FINDINGS: Comparison made with exam of 08-04-18. The heart size is prominent but stable. No focal areas of consolidation, pneumothoraces, or hunter pul monary edema or pleural effusions are seen. IMPRESSION: No acute process. POS: OFF
[2018-11-16 11:04] LABS: Bacteria/HPF 1+ HPF (None Seen); Yeast-All Forms None Seen HPF (None Seen)
[2018-11-16] MEDS ORDERED: cloNIDine 0.1 MG TAB ONE (14:03)
[2018-11-16] MEDS ORDERED: Heparin 10,000 UNITS/ 10 ML VIAL ONE (15:00)
[2018-11-16] MEDS: cloNIDine 0.1 MG TAB PO PRN (16:08)
[2018-11-16] MEDS: cefTRIAXone\\ROCEPHIN 1 GM in Sodium Chloride 0.9% 100 ML IVPB SCH (16:08)
[2018-11-16] MEDS ORDERED: Epoetin (ESRD) 20,000 UNITS/ML SC SCH ×2 (18:00→21:00)
--- NOTE | 2018-11-16 18:45 | HP ---
CHIEF COMPLAINT: Generalized weakness and elevated creatinine, sent from Dr. Julio's office. HISTORY OF PRESENT ILLNESS: The patient is a very pleasant 63-year-old female with past medical history of kidney transplant back in 2005 with a history of also TIAs, COPD, who presented to the hospital with complaints of generalized weakness, multiple falls, and also elevated creatinine. The patient states that she has been feeling weak on and off for the past week. She had some lab work done a few days ago by Dr. Julio and given her elevated creatinine and her symptoms of generalized weakness, the family and Dr. Julio wanted the patient to be admitted to the hospital for possible starting her on dialysis. The patient currently denies any fevers or chills. She denies any abdominal pain, any nausea, vomiting. The patient states that she does have chronic diarrhea, which has not increased in intensity. She normally takes Imodium, which gets her diarrhea under control. She states that she also has been feeling weak. Her legs have been giving out recently. She denies any chest pain or chest tightness. PAST MEDICAL HISTORY: 1. End-stage renal disease. She initially was on peritoneal dialysis, then had a renal transplant in 2005. Apparently, per the family, this was secondary to congenital renal problem. 2. The patient also has a history of TIAs. 3. Hyperlipidemia. 4. Congestive heart failure. 5. COPD. 6. Neuropathy. PAST SURGICAL HISTORY: 1. Has a history of renal transplant in 2005. 2. Cholecystectomy. 3. Cardiac catheterization. 4. Hysterectomy. FAMILY HISTORY: Positive for coronary artery disease. Father had some dementia as well. REVIEW OF SYSTEMS: All negative except for the ones mentioned above in the HPI. SOCIAL HISTORY: The patient has a history of smoking, apparently in the past. However, she is a former smoker. She does not smoke currently. Denies any drug use or alcohol use. The patient currently is a full code. ALLERGIES: SHE IS ALLERGIC TO LATEX AND PROMETHAZINE. MEDICATIONS: The patient's medications are 1. CellCept 500 mg b.i.d. 2. Zofran 4 mg q.6 hours p.r.n. 3. Trazodone 100 mg at bedtime. 4. Prednisone 7.5 mg daily. 5. Prograf 2 mg p.o. b.i.d. 6. Bicarb 1300 mg b.i.d. 7. Zocor 40 mg at bedtime. 8. Protonix 40 mg b.i.d. 9. Paroxetine 40 mg daily. 10. Rocaltrol 0.25 mcg every day. 11. Xanax 0.5 mg b.i.d. 12. Lasix 40 mg every day. PHYSICAL EXAMINATION: VITAL SIGNS: Temperature 98.8, heart rate was 90, blood pressure was 191/80, respirations 16, and 99% on room air. GENERAL: She is awake, alert, and oriented x3, does not appear in any distress. CV: S1, S2 present. No murmurs, rubs, or gallops. HEENT: Pupils are equal and reactive. No dryness noted in her mouth. LUNGS: Clear to auscultation. No rhonchi or wheezes noted. ABDOMEN: Soft. Bowel sounds are present x2. Nontender. EXTREMITIES: She does have 1+ lower extremity edema. Pedal pulses are present x2. NEUROLOGIC: Neurovascular nelson, no focal deficits noted. NECK: Supple and symmetrical. LABORATORY DATA: Laboratory results were as of the following; WBCs of 14.7, hemoglobin of 10.6, hematocrit of 34.8, and platelets of 255. Chemistry; sodium of 137, potassium of 5.0, BUN of 58, and creatinine of 4.20. Her urine indicated that she had some large leukocyte esterase, wbc's were greater than 50. No squamous epithelial cells were seen. The patient also had a chest x-ray that did not indicate any acute abnormalities. ASSESSMENT AND PLAN: The patient is a very pleasant 63-year-old female, who comes to the hospital with generalized weakness and also abnormal results. 1. Acute kidney injury on chronic kidney disease. The patient has a history of renal transplant, which the patient knows that it is failing. At this time given her symptoms of frequent falls and generalized weakness after talking with the anesthesia associate, the patient and the anesthesia associate has agreed to admit her to the hospital for dialysis. The patient to get a temporary dialysis catheter for hemodialysis. Also, she prefers to be on peritoneal dialysis since that is more convenient for her. The patient has been evaluated for a live kidney donor since her last transplant was a cadaver, which lasted for about 13 years. We will also consult Nephrology to continue her home medications and encourage oral intake. 2. Mild urinary tract infection. We will send her urine for culture. We will start her on some ceftriaxone. 3. Hypertension. We will start the patient on her home medications. We will also give her an additional clonidine since her blood pressure is significantly elevated at this moment. 4. Renal transplant. We will start the patient's home medications including her Prograf, CellCept, and steroids. 5. Deep vein thrombosis prophylaxis. We will put the patient on some sequential compression device and heparin subcu. Job ID: [id number]
[2018-11-16 18:53] LABS: HBSAg Index 0.22 S/CO (0-0.99); Hep B Core Total Ab Non-Reactive (NonReactive); Hep B Core Total Index 0.08 S/CO (0-0.79); Hep B Surf Ag Non-Reactive S/CO (NonReactive); Hep C IgG Ab Non-Reactive (NonReactive); Hep C Index 0.16 S/CO (0-0.79)
[2018-11-16 19:00] VITALS: BMI 29.9
[2018-11-16 21:01] LABS: Hep B Surf AB Reactive (NonReactive)
[2018-11-16 21:02] LABS: HBSAB Concentration 26.63 mIU/mL
--- NOTE | 2018-11-16 21:38 | ULT ---
BILATERAL UPPER EXTREMITY VENOUS DOPPLER 11/16/18 PROVIDED CLINICAL HISTORY: Venous mapping. FINDINGS: RIGHT UPPER EXTREMITY BRACHIAL ARTERY: 0.5 cm RADIAL ARTERY: 0.21 cm ULNAR ARTERY: 0.19 cm CEPHALIC VEIN Proximal Arm: 0.27 cm Mid Arm: 0.25 cm Distal Arm: 0.29 cm Antecubital Fossa: 0.28 cm Proximal Forearm: 0.21 cm Mid Forearm: 0.18 cm Distal Forearm: 0.15 cm BASILIC VEIN Proximal Arm: 0.45 cm Mid Arm: 0.39 cm Distal Arm: 0.39 cm Antecubital Fossa: 0.41 cm Proximal Forearm: 0.24 cm Mid Forearm: 0.24 cm Distal Forearm: 0.19 cm LEFT UPPER EXTREMITY BRACHIAL ARTERY: 0.33 cm RADIAL ARTERY: 0.17 cm ULNAR ARTERY: 0.12 cm CEPHALIC VEIN Proximal Arm: 0.21 cm Mid Arm: 0.2 cm Distal Arm: 0.1 cm Antecubital Fossa: 0.18 cm Proximal Forearm: 0.14 cm Mid Forearm: 0.20 cm Distal Forearm: 0.14 cm BASILIC VEIN Proximal Arm: 0.47 cm Mid Arm: 0.41 cm Distal Arm: 0.39 cm Antecubital Fossa: 0.37 cm Proximal Forearm: 0.30 cm Mid Forearm: 0.25 cm Distal Forearm: 0.16 cm IMPRESSION: Venous mapping as above. POS: [facility]
[2018-11-16] MEDS: cloNIDine 0.3 MG TAB PO SCH (22:06)
[2018-11-16] MEDS: Atorvastatin Calcium 20 MG TAB PO SCH (22:06)
[2018-11-16] MEDS: ALPRAZolam 0.5 MG TAB PO SCH (22:06)
[2018-11-16] MEDS: Loperamide HCl 2 MG CAP PO SCH (22:07)
[2018-11-16] MEDS: Mycophenolate 250 MG CAP PO SCH (22:07)
[2018-11-16] MEDS: Tacrolimus 1 MG CAP PO SCH (22:07)
[2018-11-16] MEDS: traZODone HCl 50 MG TAB PO SCH (22:08)
[2018-11-16] MEDS: Sodium Bicarbonate Tab 325 MG TAB PO SCH (22:08)
[2018-11-17] MEDS: cloNIDine 0.1 MG TAB PO PRN ×2 (00:29→15:40)
[2018-11-17] MEDS ORDERED: cloNIDine 0.1 MG TAB PO SCH (04:00)
--- NOTE | 2018-11-17 05:04 | CON ---
DATE OF CONSULTATION: SERVICE: Renal Medicine. HISTORY OF PRESENT ILLNESS: Ms. Park is a 63-year-old white female with a known history of chronic renal failure secondary to failing renal transplant, previous diagnosis of ESRD from FSGS and admitted for initiation of dialysis. The patient has been progressively symptomatic for the last several weeks. Her creatinine has remained unimproved with the most recent value at 4.2. Last month , this was 3.91. GFR is currently 11 mL/minute. She was also evaluated by a renal transplant physician in [place]. A biopsy was done and did not show any rejection, but progression of her original disease process. We have consulted Dr. Beltre/ Dr. Castellano for placement of a PD catheter and a cuffed hemodialysis catheter. We are following this patient for initiation of dialysis. REVIEW OF SYSTEMS: Positive for decreased appetite, occasional nausea, but no vomiting, no diarrhea, no constipation. Decreased energy level. No headache. No tremors. No fever or chills. No chest pain or shortness of breath. No hematochezia. No melena. Positive for anxiety. No joint pains. MEDICATIONS: The patient is currently on, 1. Tylenol 650 mg every 4 hours p.r.n. 2. Xanax 0.5 mg p.o. b.i.d. 3. Lipitor 20 mg tab at bedtime. 4. Calcitriol 0.25 mcg tab daily. 5. Ceftriaxone 1 g IV daily. 6. Catapres 0.3 mg p.o. b.i.d. 7. CellCept 500 mg p.o. b.i.d. 8. Paxil 40 mg at bedtime. 9. Prednisone 7.5 mg q.a.m. 10. Sodium bicarbonate 1300 mg p.o. b.i.d. 11. Prograf 2 mg p.o. b.i.d. 12. Trazodone 100 mg p.o. at bedtime. PAST MEDICAL HISTORY: 1. Chronic renal failure, secondary to failing renal transplant. 2. Status post ESRD, secondary to FSGS. 3. History of anxiety. 4. Secondary hyperparathyroidism, hypertension, history of depression, hyperlipidemia, ?COPD, history of noncompliance, status post UTI, history of gastroparesis, status post non-Q-wave MD, history of dysplastic colon, status post pancreatitis, restless legs syndrome. PAST SURGICAL HISTORY: 1. Status post cadaveric renal transplant in [facility]. 2. Status post ERCP. 3. Status post leg surgery. 4. Status post cuffed dialysis catheter placement. 5. Status post PD catheter placement. 6. Status post vaginal hysterectomy. 7. Status post surgery of the right kidney. 8. Status post cardiac cath. 9. Status post AV fistula placement. 10. Status post colonoscopy. SOCIAL HISTORY: The patient lives in [place]. . No children. 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 Education, high school. Status post multiple blood transfusions. No alcohol intake. No drug abuse. FAMILY HISTORY: No family history of ESRD. ALLERGIES: LATEX AND ADVERSE REACTION TO PHENERGAN. TRAUMA: Status post fall with left tibia and fibula comminuted fracture. IMMUNIZATION: Up-to-date. HOSPITALIZATIONS: Please see past medical history. PHYSICAL EXAMINATION: VITAL SIGNS: Blood pressure is 189/83 and had a pulse ox of 99%. Heart rate 70. GENERAL: Awake, alert, comfortable, not in distress. SKIN: Adequate turgor. HEENT: Pinkish conjunctivae. Anicteric sclerae. No neck mass. No carotid bruits. No JVD. CHEST: No deformities. LUNGS: Clear breath sounds. HEART: Normal sinus rhythm. No murmurs, gallops, or rubs. ABDOMEN: Globular, soft, nontender. No masses. EXTREMITIES: No edema. No deformities. NEUROLOGICAL: Awake. No asterixis. No tremors. LABORATORY DATA: Laboratories of November 16, 2018; sodium 137, chloride 108, potassium 5, carbon dioxide 15, BUN 58, creatinine 4.2. Lactic acid 0.2. Albumin is 3.1. Lipase 48. PTH 856. White count 14.7, hemoglobin 10.6. Urinalysis; wbc's greater than 50. Protein is 300. ASSESSMENT AND PLAN: 1. Chronic renal failure, secondary to failing renal transplant-possible recurrence of focal segmental glomerulosclerosis remains as suggested by the proteinuria. Due to the progressive azotemia, we will initiate hemodialysis with this patient. A PD catheter will also be placed since the patient wants to go back to peritoneal dialysis. Surgical consult has been done. 2. Anemia. Start Epogen. 3. Hypertension. Continue current blood pressure medications. We will continue to follow. Thank you for the consult. Job ID: [id number] [facility]
[2018-11-17 05:25] LABS: #Basophils 0.1 thou/uL (0.0-0.2); #Eosinphils 0.1 thou/uL (0.0-0.7); #Lymphocytes 1.6 thou/uL (1.20-3.40); %Basophils 0.6 % (0.0-1.0); %Eosinophils 1.5 % (0.0-10.0); %Lymphocytes 15.9 % (21.0-51.0); %Monocytes 10.4 % (0.0-10.0); %Neutrophils 71.6 % (42.0-75.0); Hemoglobin 10.6 g/dL (12.0-16.0); Mean Corpuscular HGB CONC 30.3 g/dL (32.0-36.0); Mean Corpuscular Hemoglobin 27.6 pg (27.0-31.0); Mean Corpuscular Volume 91.2 fL (78.0-98.0); Mean Platelet Volume 8.9 fL (7.4-10.4); Platelet Count 263 thou/uL (130-400); RBC Distribution Width 16.5 % (11.5-14.5); Red Blood Cell (RBC) Count 3.83 mill/uL (4.20-5.40); White Blood Cell (WBC) Count 9.8 thou/uL (4.8-10.8)
[2018-11-17 05:45] LABS: Anion Gap 17 mmol/L (10-20); BUN (Urea Nitrogen) 54 mg/dL (9.8-20.1); Calc. Creatinine Clearance 15 mL/min (70-130); Calcium 8.4 mg/dL (7.8-10.44); Carbon Dioxide 20 mmol/L (23-31); Chloride 109 mmol/L (98-107); Estimated GFR-MDRD 11; Glucose 104 mg/dL (80-115); Potassium 4.6 mmol/L (3.5-5.1); Sodium 141 mmol/L (136-145)
[2018-11-17] MEDS ORDERED: CEFAZOLIN 2 GM/50 ML-DEXTROSE 2 GM in Premix Bag 1 BAG IVPB SCH ×2 (06:00→07:15)
[2018-11-17] MEDS ORDERED: Bupivacaine HCl 0.5%/Epinephrine 1:200,000/PF 30 ml Vial ONE (06:25)
[2018-11-17] MEDS ORDERED: Sodium Chloride 0.9% 10 ML ONE (06:25)
[2018-11-17] MEDS ORDERED: Heparin 10,000 UNITS/1 ML VIAL ONE (06:25)
[2018-11-17] MEDS ORDERED: CEFAZOLIN 2 GM/50 ML BAG ONE (06:30)
[2018-11-17] MEDS ORDERED: Lidocaine 2% w/Epinephrine 1:200K 20 ML VIAL ONE (06:39)
[2018-11-17] MEDS ORDERED: Lidocaine 2% PF 5 ML VIAL ONE (06:40)
[2018-11-17] MEDS ORDERED: hydrALAZINE 20 MG/ML VIAL ONE (06:44)
[2018-11-17] MEDS ORDERED: CEFAZOLIN/Water 2 GM/20 ML SYRINGE SLOW IVP SCH (07:15)
[2018-11-17] MEDS ORDERED: Sodium Chloride 0.9% 20 ML ONE (07:36)
[2018-11-17] MEDS ORDERED: Propofol 500 MG/50 ML VIAL ONE (07:39)
[2018-11-17] MEDS ORDERED: Midazolam HCl 2 mg/2 ml Vial ONE (07:39)
--- NOTE | 2018-11-17 08:36 | HP ---
HISTORY OF PRESENT ILLNESS: Xavier is a 63-year-old female from [place]. She is . She states she is very active, although she states she spends most of her day in a chair and sitting outside. She quit smoking a pack a day a month ago. She had a renal transplant in 1999 at [facility] in [place], and has been going through gradual rejection. She has been moved to this hospitalization and initiated hemodialysis. She is followed by Dr. Julio. I have been asked to see her regarding placement of hemodialysis catheter and also placement of a peritoneal dialysis catheter. She has never had a fistula. She had marking ultrasound yesterday on 11/16/2018, revealing the cephalic vein right 2 mm, 2 mm, 2.9 mm; antecubital fossa 2.8 mm; 2.1 mm proximal forearm; and basilic vein 4.5, 3.9, 3.9; 4.1 mm antecubital fossa; 2.4 mm proximal forearm. On the left, she was 2.1, 2 mm, 1 mm, 1.8 mm, and basilic vein 4.7, 4.1, 3.9, 3.7 mm on the left. Plan today is to place hemodialysis catheter, initiate dialysis. We will plan tomorrow laparoscopic PD catheter, right arm fistula. She understands risks and benefits of the procedure and questions were answered. ALLERGIES: PHENERGAN CAUSES HYPERACTIVITY. NO TRUE ALLERGY. LATEX ALLERGY. SOCIAL HISTORY: Tobacco, one pack a day until a month ago when she quit. Alcohol, none to rare. MEDICATIONS: 1. Trazodone 100 mg at bedtime (Desyrel). 2. Zofran p.r.n. 3. Prednisone 7.5 mg a day. 4. Tizanidine 4 mg at bedtime. 5. Prograf 2 mg b.i.d. 6. CellCept 500 b.i.d. 7. Furosemide 40 mg a day. 8. Folic acid 1 mg a day. 9. Ferrous sulfate 325 b.i.d. 10. Alprazolam 1 mg b.i.d. 11. Tylenol p.r.n. 12. Protonix 40 mg a day. 13. Paroxetine 40 mg a day. 14. Clonidine 0.1 mg p.r.n. 15. Clonidine HCL 0.3 mg p.o. b.i.d. 16. Loperadine p.r.n. 17. Calcitriol 0.25 mcg daily. 18. Gabapentin 300 mg b.i.d. 19. Sodium bicarbonate 4 tablets p.o. b.i.d. PAST SURGICAL HISTORY: Laparoscopic cholecystectomy; hysterectomy without oophorectomy; renal transplant in 2005; history of peritoneal dialysis in the past; colonoscopy last year, Dr. Valencia; echocardiogram in October 2017, 65% to 70% ejection fraction, mild tricuspid regurgitation, moderate aortic regurgitation, moderate mitral regurgitation; I saw her in August 2014, where she had a PPH stapled hemorrhoidectomy for hemorrhoids. I saw her in October 2017, where she had a left IJ triple-lumen catheter for pneumonia. Dr. Stuart Knutson saw her in October 2017 for IM nailing of left tibia. She reports having had a cardiac catheterization in October 2017 for coronary angiogram, mid LAD 20%, proximal circumflex 60%, 8 mm length. No intervention performed by Dr. Dunaway. REVIEW OF SYSTEMS: Ten-point noncontributory. The patient reports having had a TIA in 2005 with a renal transplant, caused generalized weakness, resolved. PHYSICAL EXAMINATION: VITAL SIGNS: Height 5 feet tall, weight 153 pounds, and BMI 30. HEAD, EARS, EYES, NOSE, AND THROAT: Unremarkable. Sclerae are nonicteric. LUNGS: Clear to auscultation. PULMONARY: No wheezing. CARDIAC: Regular rate and rhythm without murmur or gallop. ABDOMEN: Soft. No hernias evident. No umbilical hernia. No groin hernias. EXTREMITIES: Unremarkable. Palpable radial pulses. SKIN: Nonjaundiced. NEUROLOGIC: Intact. LABORATORY AND DIAGNOSTIC DATA: Carotid ultrasound and CT scan of brain were normal, she reports in [place]. Hemoglobin 10.6, platelet count 263. Basic metabolic profile normal except for BUN 54, creatinine 4.1, and potassium 4.6. ASSESSMENT AND PLAN: 1. Renal transplant rejection. Plan, placement of a hemodialysis catheter today, initiate dialysis. She understands risks, benefits, and consents. 2. Plan, placement of right arm fistula and laparoscopic PD catheter tomorrow. She understands risks, benefits, and consents. We will plan this later tomorrow morning or afternoon. She can dialyze today and tomorrow morning. 3. Renal transplant rejection, chronic kidney disease/end-stage renal disease, followed by Dr. Julio. Plan as above. 4. Tobacco abuse history. Cessation for 4 weeks. 5. Up-to-date on colonoscopies. 6. Chronic obstructive pulmonary disease. 7. Hypertension. 8. 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 Job ID: [id number]
--- NOTE | 2018-11-17 10:43 | RAD ---
PORTABLE CHEST ONE VIEW: 11/17/2018 8:39 a.m. HISTORY: Postop. Placement of femoral line. COMPARISON: Exam from the previous day. FINDINGS: The heart size is stable. No focal areas of consolidation, pneumothorax, or pleural effusions are se en. There is no evidence of hunter pulmonary edema. The tip of the inferiorly placed venous catheter is in the projection of the cavoatrial junction (IVC-right atrium). POS: [facility]
[2018-11-17] MEDS: predniSONE 5 MG TAB PO SCH (11:08)
[2018-11-17] MEDS: ALPRAZolam 0.5 MG TAB PO SCH ×2 (11:09→20:37)
[2018-11-17] MEDS: Calcitriol 0.25 MCG CAP PO SCH (11:09)
[2018-11-17] MEDS: Loperamide HCl 2 MG CAP PO SCH ×2 (11:09→20:37)
[2018-11-17] MEDS: cloNIDine 0.3 MG TAB PO SCH ×2 (11:09→21:31)
[2018-11-17] MEDS: Sodium Bicarbonate Tab 325 MG TAB PO SCH ×2 (11:10→20:33)
[2018-11-17] MEDS: PARoxetine 20 MG TAB PO SCH (11:10)
[2018-11-17] MEDS: Mycophenolate 250 MG CAP PO SCH ×2 (11:10→20:33)
[2018-11-17] MEDS: Tacrolimus 1 MG CAP PO SCH ×2 (11:11→20:33)
--- NOTE | 2018-11-17 11:49 | OP ---
DATE OF PROCEDURE: 11/17/2018 PREOPERATIVE DIAGNOSES: Rejected renal transplant, end-stage renal disease, in need of dialysis access, planning peritoneal dialysis access in right arm fistula tomorrow. POSTOPERATIVE DIAGNOSES: Rejected renal transplant, end-stage renal disease, in need of dialysis access, planning peritoneal dialysis access in right arm fistula tomorrow with nonvisualized right internal jugular vein on ultrasound and able to cannulate the left internal jugular vein, but could not pass the J-wire into the superior vena cava, ultrasound and fluoroscopy used. PROCEDURES PERFORMED: Failed attempted placement of left IJ cuffed tunneled dialysis catheter, could cannulate the internal jugular vein, but could not thread the J-wire. Successful placement of right femoral vein, cuffed-tunneled hemodialysis catheter, fluoroscopy used, ultrasound used. ANESTHESIA: Intravenous sedation, local. DESCRIPTION OF PROCEDURE: The patient was taken to the operating room, where under IV sedation, her neck and chest were prepared with ChloraPrep and draped in routine fashion. A local anesthetic mixture was infiltrated into the skin and subcutaneous tissue about the operative site. I visualized the right carotid artery but could not visualize the right internal jugular vein due to previous dialysis catheters. It was thrombosed. Left internal jugular vein was visualized with ultrasound. I could cannulate it, but the J-wire would not thread despite efforts to use the straight end. Multiple attempts unsuccessful. Lower abdomen, groin, and thighs were prepared with ChloraPrep and draped in routine fashion. Local anesthetic was infiltrated in the skin and subcutaneous tissue about the operative site. The right femoral vein was cannulated with a trocar catheter, J-wire threaded, trocar catheter removed. Skin was incised and enlarged sharply. Stab incision was made at the planned exit site and the cuffed-tunneled hemodialysis catheter tunneled between the two incisions, placed in the fabric cuff beneath the skin exit site. Catheter was secured with 2 sutures of 3-0 nylon. CHG dressing, Mastisol, sterile dressings applied after the catheter was secured with 3-0 nylon. A small and medium sized dilators were placed over the J-wire into the right femoral vein and removed. Dilator and Peel-Away sheath placed over the J-wire into the femoral vein, iliac vein, and J-wire and dilator removed. Catheter placed through the Peel-Away sheath. Peel-Away sheath removed. Fluoroscopically, catheter noted to be in good position. Each port aspirated blood flushed with saline solution and heparinized saline solution of 1000 units of heparin per mL indicating volume of port. The patient tolerated the procedure well. Subcutaneous tissue was approximated with 3-0 Monocryl, skin with subdermal 4-0 Monocryl, and [place]-glue applied. Job ID: [id number]
[2018-11-17] MEDS: cefTRIAXone\\ROCEPHIN 1 GM in Sodium Chloride 0.9% 100 ML IVPB SCH (13:46)
[2018-11-17] MEDS: Acetaminophen 325 MG TAB PO PRN (15:40)
[2018-11-17] MEDS ORDERED: Ondansetron PF 4 MG/2 ML Vial ONE (16:25)
--- NOTE | 2018-11-17 17:15 | PRG ---
DATE OF SERVICE: RENAL MEDICINE SUBJECTIVE: Ms. Park is a 63-year-old white female with chronic renal failure from failing renal transplant and admitted for initiation of dialysis. A cuffed-hemodialysis catheter was placed on the right leg by Dr. Beltre. She underwent an one hour hemodialysis. She is scheduled for a PD catheter placement tomorrow. No other complaints. OBJECTIVE: VITAL SIGNS: Blood pressure 212/89 - before BP medications, heart rate 65, respiratory rate 16, temperature 98, and pulse ox 97%. GENERAL: Noted to be awake, comfortable, not in distress. SKIN: Adequate turgor. HEENT: Pinkish conjunctivae. Anicteric sclerae. NECK: No neck mass. No carotid bruits. No JVD. CHEST: No deformities. LUNGS: Clear breath sounds. HEART: Normal sinus rhythm. No murmurs, gallops, or rubs. ABDOMEN: Globular, soft, nontender. No masses. EXTREMITIES: No edema. No deformities. MEDICATIONS: Medications of November 17, 2018, were reviewed. LABORATORY DATA: Laboratories of November 17, 2018, white count 9.8, hemoglobin 10.6. Sodium 141, potassium 4.6, chloride 109, carbon dioxide 20, BUN 54, creatinine 4.1, and calcium 8.4. ASSESSMENT AND PLAN: 1. Chronic renal failure/end-stage renal disease - hemodialysis x1 hour. We scheduled for a 2-hour hemodialysis tomorrow with fluid removal only as tolerated. 2. Hypertension. Continue current blood pressure medications. 3. The patient is scheduled for peritoneal dialysis catheter placement tomorrow. 4. Overall, agree with current management. Job ID: [id number]
[2018-11-17] MEDS ORDERED: hydrALAZINE 20 MG/ML VIAL SLOW IVP PRN (17:58)
[2018-11-17] MEDS ORDERED: Tuberculin PPD 0.1 ML VIAL I-DERMAL SCH (18:00)
--- NOTE | 2018-11-17 18:01 | PDOC.PN ---
- Subjective Encounter Start Date: 11/17/18 Encounter Start Time: 14:00 Subjective: pt up in bed still has generalized weakness - Objective Resuscitation Status - Order Detail: 11/16/18 13:04 Resuscitation Status Routine Resuscitation Status: FULL: Full Resuscitation Vital Signs & Weight: Vital Signs (12 hours) Temp Pulse Resp BP Pulse Ox 11/17/18 16:38 220/80 H 11/17/18 15:33 98.0 F 65 16 212/89 H 97 11/17/18 11:05 97.4 F L 63 16 177/83 H 96 11/17/18 06:23 95 Weight Weight 153 lb 8 oz I&O: 11/16/18 11/17/18 11/18/18 06:59 06:59 06:59 Intake Total 236 Output Total 1000 Balance -764 Result Diagrams: 11/17/18 04:42 11/17/18 04:42 Phys Exam - Physical Examination HEENT: PERRLA, moist MMs, sclera anicteric, TM's clear, oral pharynx no lesions , 2+ tonsils Neck: no nodes, no JVD, supple, full ROM Respiratory: no wheezing, no rales, no rhonchi, wheezing present, clear to auscultation bilateral Cardiovascular: RRR, no significant murmur, no rub, gallop, irregular Gastrointestinal: soft, non-tender, no distention, positive bowel sounds Dx/Plan (1) FATMATA (acute kidney injury) Code(s): N17.9 - ACUTE KIDNEY FAILURE, UNSPECIFIED Status: Acute Comment: improving f/u renal plan (2) CAD (coronary artery disease) Code(s): I25.10 - ATHSCL HEART DISEASE OF [place] CORONARY ARTERY W/O ANG PCTRS Status: Chronic Qualifiers: (3) Hypertension Code(s): I10 - ESSENTIAL (PRIMARY) HYPERTENSION Status: Chronic Qualifiers: Hypertension type: essential hypertension Qualified Code(s): I10 - Essential (primary) hypertension (4) H/O kidney transplant Status: Chronic - Plan will add procardia for her bp -: continue clonidine and will also add prn hydralizine -: pt's hr is low will not be able to add bb * . Review of Systems - Review of Systems Respiratory: negative: Cough, Dry, Shortness of Breath, Hemoptysis, SOB with Excertion, Pleuritic Pain, Sputum, Wheezing Cardiovascular: negative: chest pain, palpitations, orthopnea, paroxysmal nocturnal dyspnea, edema, light headedness, other Gastrointestinal: negative: Nausea, Vomiting, Abdominal Pain, Diarrhea, Constipation, Melena, Hematochezia, Other - Medications/Allergies Allergies/Adverse Reactions: Allergies Allergy/AdvReac Type Severity Reaction Status Date / Time latex Allergy Verified 09/05/14 11:18 promethazine [From Phenergan] Allergy Verified 11/28/16 01:55 Medications: Current Medications Acetaminophen (Tylenol) 650 mg PO Q4H PRN PRN Reason: Headache/Fever/Mild Pain (1-3) Last Admin: 11/17/18 15:40 Dose: 650 mg Alprazolam (Xanax) 0.5 mg PO BID [facility] Last Admin: 11/17/18 20:37 Dose: 0.5 mg Atorvastatin Calcium (Lipitor) 20 mg PO HS [facility] Last Admin: 11/17/18 20:32 Dose: 20 mg Calcitriol (Rocaltrol) 0.25 mcg PO DAILY [facility] Last Admin: 11/17/18 11:09 Dose: 0.25 mcg Clonidine (Catapres) 0.3 mg PO BID [facility] Last Admin: 11/17/18 21:31 Dose: 0.3 mg Clonidine (Catapres) 0.1 mg PO Q6H PRN PRN Reason: Hypertension Last Admin: 11/17/18 15:40 Dose: 0.1 mg Epoetin Inderjit (Procrit) 7,500 units SC Q7D@2100 [facility] Last Admin: 11/16/18 22:06 Dose: 7,500 units Hydralazine HCl (Apresoline) 5 mg SLOW IVP Q6HR PRN PRN Reason: Blood Pressure Hydralazine HCl (Apresoline) 20 mg SLOW IVP Q4H PRN PRN Reason: SBP>180 Last Admin: 11/18/18 03:35 Dose: 20 mg Ceftriaxone Sodium 1 gm/ (Sodium Chloride) 100 mls @ 200 mls/hr IVPB Q24HR [facility] Last Admin: 11/17/18 13:46 Dose: 100 mls Loperamide HCl (Imodium) 2 mg PO BID [facility] Last Admin: 11/17/18 20:37 Dose: 2 mg Mycophenolate Mofetil (Cellcept) 500 mg PO BID [facility] Last Admin: 11/17/18 20:33 Dose: 500 mg Nifedipine (Procardia Xl) 60 mg PO DAILY [facility] Read Ppd Test Site 0 each PO 1800 [facility] Stop: 11/20/18 18:01 Paroxetine HCl (Paxil) 40 mg PO DAILY [facility] Last Admin: 11/17/18 11:10 Dose: 40 mg Prednisone (Prednisone) 7.5 mg PO QAM-WM [facility] Last Admin: 11/17/18 11:08 Dose: 7.5 mg Sodium Bicarbonate (Bicarbonate, Sodium) 1,300 mg PO BID [facility] Last Admin: 11/17/18 20:33 Dose: 1,300 mg Tacrolimus (Prograf) 2 mg PO BID [facility] Last Admin: 11/17/18 20:33 Dose: 2 mg Trazodone HCl (Desyrel) 100 mg PO HS [facility] Last Admin: 11/17/18 20:37 Dose: 100 mg
[2018-11-17] MEDS ORDERED: NIFEdipine XL 60 MG TAB PO SCH (18:15)
[2018-11-17] MEDS: Atorvastatin Calcium 20 MG TAB PO SCH (20:32)
[2018-11-17] MEDS: traZODone HCl 50 MG TAB PO SCH (20:37)
[2018-11-18] MEDS: hydrALAZINE 20 MG/ML VIAL SLOW IVP PRN ×2 (03:35→23:08)
[2018-11-18] MEDS ORDERED: Nitroglycerin 0.4 MG TAB (25 Tab Bottle) SL SCH (06:15)
[2018-11-18] MEDS: Acetaminophen 325 MG TAB PO PRN (06:54)
[2018-11-18] MEDS ORDERED: Heparin 10,000 UNITS/ 10 ML VIAL ONE (07:55)
[2018-11-18] MEDS ORDERED: Succinylcholine Chloride 20 MG/ML 10 ml SYRINGE FS ONE (07:55)
[2018-11-18] MEDS ORDERED: Lidocaine 1% PF 5 ML VIAL ONE (07:55)
[2018-11-18] MEDS ORDERED: PROPOFOL 200 MG/20 ML VIAL ONE (07:55)
--- NOTE | 2018-11-18 08:49 | PRG ---
DATE OF SERVICE: 11/18/2018 RENAL MEDICINE SUBJECTIVE: Ms. Park is a 63-year-old white female, who was admitted for initiation of dialysis. She has a failed renal transplant. She underwent a one-hour hemodialysis yesterday and tolerated said treatment. She is due for a placement of a PD catheter and AV fistula. I explained to her that AV fistula will be a backup. She has poor vascular access, and for that reason, a planned AV fistula will also be done. No other complaints today. No chest pain or shortness of breath. OBJECTIVE: VITAL SIGNS: Blood pressure most recent is 170/80, previously 202/92; heart rate is 63; respiratory rate 16; temperature 97.7; and pulse ox 95%. GENERAL: Awake, alert, comfortable, not in distress. SKIN: Adequate turgor. HEENT: Pinkish conjunctivae. Anicteric sclerae. NECK: No neck mass. No carotid bruits. No JVD. CHEST: No deformities. LUNGS: Clear breath sounds. HEART: Normal sinus rhythm. No murmurs. No gallops. No rubs. ABDOMEN: Globular, soft, nontender. No masses. EXTREMITIES: No edema. No deformities noted. She has a right cuffed-hemodialysis catheter on the right leg. MEDICATIONS: Medications of November 18, 2018, were reviewed. LABORATORY DATA: Laboratories of November 17, 2018; white count 9.8, hemoglobin 10.6. Sodium 141, potassium 4.6, chloride 109, carbon dioxide 20, BUN 54, creatinine 4.1, glucose 104, and calcium 8.4. ASSESSMENT AND PLAN: 1. Chronic renal failure - secondary to failed renal transplant. Hemodialysis has been initiated. She is due for 2-hour hemodialysis today. 2. Status post failed renal transplant. We will slowly wean off her immunosuppressives overtime. 3. Labile hypertension. We will be adjusting her blood pressure medications. Consider starting her on losartan 25 mg tablet once a day if blood pressure is still not in good control. Recently, she has been started on Procardia 60 mg XL tablet once a day. 4. Agree with current management. ADDENDUM: We will discontinue sodium bicarbonate. Job ID: [id number]
[2018-11-18] MEDS: Ondansetron PF 4 MG/2 ML Vial IVP PRN ×2 (09:17→13:10)
[2018-11-18] MEDS: Calcitriol 0.25 MCG CAP PO SCH (10:47)
[2018-11-18] MEDS: Loperamide HCl 2 MG CAP PO SCH ×2 (10:47→21:32)
[2018-11-18] MEDS: PARoxetine 20 MG TAB PO SCH (10:47)
[2018-11-18] MEDS: cloNIDine 0.3 MG TAB PO SCH ×2 (10:47→21:32)
[2018-11-18] MEDS: NIFEdipine XL 60 MG TAB PO SCH (10:47)
[2018-11-18] MEDS: Mycophenolate 250 MG CAP PO SCH ×2 (10:48→21:32)
[2018-11-18] MEDS: ALPRAZolam 0.5 MG TAB PO SCH ×2 (10:48→21:31)
[2018-11-18] MEDS: predniSONE 5 MG TAB PO SCH (10:48)
[2018-11-18] MEDS: Tacrolimus 1 MG CAP PO SCH ×2 (10:49→21:32)
[2018-11-18] MEDS ORDERED: Heparin 1,000 UNITS/ML VIAL ONE (11:11)
[2018-11-18] MEDS ORDERED: Enalaprilat Dihydrate 1.25 MG/ML VIAL SLOW IVP SCH (12:30)
[2018-11-18] MEDS ORDERED: Minoxidil 2.5 MG TAB PO SCH (14:15)
[2018-11-18] MEDS ORDERED: Ondansetron PF 4 MG/2 ML Vial ONE (15:20)
[2018-11-18] MEDS ORDERED: Heparin 5,000 UNITS/ML VIAL ONE (17:36)
[2018-11-18] MEDS ORDERED: Protamine Sulfate 50 MG/5 ML VIAL ONE (17:36)
[2018-11-18] MEDS ORDERED: Lidocaine 2% w/Epinephrine 1:200K 20 ML VIAL ONE (17:36)
[2018-11-18] MEDS ORDERED: Heparin 10,000 UNITS/1 ML VIAL ONE (17:36)
[2018-11-18] MEDS ORDERED: Bupivacaine/Epinephrine 0.25% 30 ML VIAL ONE ×2 (17:36→18:10)
[2018-11-18] MEDS ORDERED: Bupivacaine HCl 0.5%/Epinephrine 1:200,000/PF 30 ml Vial ONE (17:36)
[2018-11-18] MEDS ORDERED: Lidocaine 2% PF 5 ML VIAL ONE ×2 (17:38)
[2018-11-18] MEDS: cefTRIAXone\\ROCEPHIN 1 GM in Sodium Chloride 0.9% 100 ML IVPB SCH (17:56)
[2018-11-18] MEDS ORDERED: Famotidine/PF 20 mg/2ml Vial ONE (18:22)
[2018-11-18] MEDS ORDERED: Fentanyl 100 MCG/2 ML VIAL ONE (18:22)
[2018-11-18] MEDS ORDERED: traMADol HCl 50 MG TAB PO PRN (18:54)
--- NOTE | 2018-11-18 19:25 | PDOC.PN ---
- Subjective Encounter Start Date: 11/18/18 Encounter Start Time: 10:30 Subjective: pt up in bed complains of some nausea - Objective Resuscitation Status - Order Detail: 11/16/18 13:04 Resuscitation Status Routine Resuscitation Status: FULL: Full Resuscitation Vital Signs & Weight: Vital Signs (12 hours) Temp Pulse Resp BP BP Pulse Ox 11/18/18 12:57 195/84 H 11/18/18 12:29 202/92 H 11/18/18 12:00 98.9 F 72 22 H 221/96 H 97 11/18/18 10:47 76 202/92 H 11/18/18 10:32 98 11/18/18 07:48 98.9 F 76 20 187/81 H 97 Weight Weight 153 lb 8 oz I&O: 11/17/18 11/18/18 11/19/18 06:59 06:59 06:59 Intake Total 236 Output Total 1000 Balance -764 Result Diagrams: 11/17/18 04:42 11/17/18 04:42 Phys Exam - Physical Examination Neck: no nodes, no JVD, supple, full ROM Respiratory: no wheezing, no rales, no rhonchi, wheezing present, clear to auscultation bilateral Cardiovascular: RRR, no significant murmur, no rub, gallop, irregular Gastrointestinal: soft, non-tender, no distention, positive bowel sounds Dx/Plan (1) FATMATA (acute kidney injury) Code(s): N17.9 - ACUTE KIDNEY FAILURE, UNSPECIFIED Status: Acute Comment: improving f/u renal plan (2) CAD (coronary artery disease) Code(s): I25.10 - ATHSCL HEART DISEASE OF [place] CORONARY ARTERY W/O ANG PCTRS Status: Chronic Qualifiers: (3) Hypertension Code(s): I10 - ESSENTIAL (PRIMARY) HYPERTENSION Status: Chronic Qualifiers: Hypertension type: essential hypertension Qualified Code(s): I10 - Essential (primary) hypertension (4) H/O kidney transplant Status: Chronic - Plan spoke with nephro will add vasotec and minoxidil -: pt to get PD cath today -: s/p hemodialysis -: will continue immunotherapy * . Review of Systems - Review of Systems Respiratory: negative: Cough, Dry, Shortness of Breath, Hemoptysis, SOB with Excertion, Pleuritic Pain, Sputum, Wheezing Cardiovascular: negative: chest pain, palpitations, orthopnea, paroxysmal nocturnal dyspnea, edema, light headedness, other Gastrointestinal: negative: Nausea, Vomiting, Abdominal Pain, Diarrhea, Constipation, Melena, Hematochezia, Other Genitourinary: negative: Dysuria, Frequency, Incontinence, Hematuria, Retention , Other - Medications/Allergies Allergies/Adverse Reactions: Allergies Allergy/AdvReac Type Severity Reaction Status Date / Time latex Allergy Verified 09/05/14 11:18 promethazine [From Phenergan] Allergy Verified 11/28/16 01:55 Medications: Current Medications Acetaminophen (Tylenol) 650 mg PO Q4H PRN PRN Reason: Headache/Fever/Mild Pain (1-3) Last Admin: 11/18/18 06:54 Dose: 650 mg Acetaminophen (Tylenol) 1,000 mg PO Q6H PRN PRN Reason: Moderate to Severe Pain (6-10) Alprazolam (Xanax) 0.5 mg PO BID [facility] Last Admin: 11/18/18 10:48 Dose: 0.5 mg Atorvastatin Calcium (Lipitor) 20 mg PO HS [facility] Last Admin: 11/17/18 20:32 Dose: 20 mg Calcitriol (Rocaltrol) 0.25 mcg PO DAILY [facility] Last Admin: 11/18/18 10:47 Dose: 0.25 mcg Clonidine (Catapres) 0.3 mg PO BID [facility] Last Admin: 11/18/18 10:47 Dose: 0.3 mg Clonidine (Catapres) 0.1 mg PO Q6H PRN PRN Reason: Hypertension Last Admin: 11/17/18 15:40 Dose: 0.1 mg Epoetin Inderjit (Procrit) 7,500 units SC Q7D@2100 [facility] Last Admin: 11/16/18 22:06 Dose: 7,500 units Hydralazine HCl (Apresoline) 5 mg SLOW IVP Q6HR PRN PRN Reason: Blood Pressure Hydralazine HCl (Apresoline) 20 mg SLOW IVP Q4H PRN PRN Reason: SBP>180 Last Admin: 11/18/18 03:35 Dose: 20 mg Ceftriaxone Sodium 1 gm/ (Sodium Chloride) 100 mls @ 200 mls/hr IVPB Q24HR [facility] Last Admin: 11/18/18 17:56 Dose: Not Given Loperamide HCl (Imodium) 2 mg PO BID [facility] Last Admin: 11/18/18 10:47 Dose: 2 mg Minoxidil (Minoxidil) 5 mg PO DAILY [facility] Mycophenolate Mofetil (Cellcept) 500 mg PO BID [facility] Last Admin: 11/18/18 10:48 Dose: 500 mg Nifedipine (Procardia Xl) 60 mg PO DAILY [facility] Last Admin: 11/18/18 10:47 Dose: 60 mg Read Ppd Test Site 0 each PO 1800 [facility] Stop: 11/20/18 18:01 Ondansetron HCl (Zofran) 4 mg IVP Q4H PRN PRN Reason: Nausea/Vomiting Last Admin: 11/18/18 13:10 Dose: 4 mg Paroxetine HCl (Paxil) 40 mg PO DAILY [facility] Last Admin: 11/18/18 10:47 Dose: 40 mg Polyethylene Glycol (Miralax) 17 gm PO DAILY [facility] Prednisone (Prednisone) 7.5 mg PO QAM-WM [facility] Last Admin: 11/18/18 10:48 Dose: 7.5 mg Tacrolimus (Prograf) 2 mg PO BID [facility] Last Admin: 11/18/18 10:49 Dose: 2 mg Tramadol HCl (Ultram) 50 mg PO Q6H PRN PRN Reason: Pain 1-5 Trazodone HCl (Desyrel) 100 mg PO HS [facility] Last Admin: 11/17/18 20:37 Dose: 100 mg
[2018-11-18] MEDS ORDERED: Ondansetron HCl/PF 4 MG/2 ML Vial IVP PRN (20:02)
[2018-11-18] MEDS: Atorvastatin Calcium 20 MG TAB PO SCH (21:32)
[2018-11-18] MEDS: traZODone HCl 50 MG TAB PO SCH (21:33)
--- NOTE | 2018-11-18 21:45 | OP ---
DATE OF PROCEDURE: 11/18/2018 PREOPERATIVE DIAGNOSES: 1. End-stage renal disease, desires peritoneal dialysis. 2. Occluded internal jugulars from previous dialysis access. 3. Renal transplant rejection. POSTOPERATIVE DIAGNOSES: 1. End-stage renal disease, desires peritoneal dialysis. 2. Occluded internal jugulars from previous dialysis access. 3. Renal transplant rejection. PROCEDURE PERFORMED: Laparoscopic peritoneal dialysis catheter, double-cuffed pigtail; laparoscopic omentopexy, right arm primary AV fistula, perforating branch antecubital vein to proximal radial artery, outflow with cephalic vein only. Basilic vein is of acceptable caliber and available for future use, retrograde antecubital vein preserved, although small. ANESTHESIA: General, local of 0.5% Marcaine with epinephrine 30 mL mixed with 2% Xylocaine 10 mL. DESCRIPTION OF PROCEDURE: The patient was taken to the operating room where under general anesthesia, abdomen and right upper extremity were prepared with ChloraPrep and draped in routine fashion. Local anesthetic was infiltrated in the skin and subcutaneous tissue about the operative site. Bilateral subcostal incision was made. Pneumoperitoneum to 15 mmHg was obtained with the [place] needle and replaced with a 5 mm port and the laparoscope inserted, contralateral 5 mm port was placed under laparoscopic visualization. A stab incision was made in the planned exit site in the left lower quadrant and just medial distance superior at the umbilical level proximally, a counterincision was made, 8 mm port was placed in the skin, subcutaneous tissue directed caudally through the rectus sheath, visualized laparoscopically as it was penetrating the abdominal cavity caudally in the lower abdomen. A double-cuffed pigtail catheter was placed through this port and the internal cuff placed in the rectus sheath, as the port was removed. [place] dissector was placed through the exit site incision toward the counterincision, grasping the catheter and pulled it out, placed an external cuff in the skin exit site. Subcutaneous tissue was approximated with 3-0 Monocryl, skin with subdermal 4-0 Monocryl. [place] glue and sterile dressings were applied after catheter flushed with heparinized saline solution, 1000 units of heparin per milliliter, 10 mL. The omentum was partially adhesed in the mid abdomen. Another segment that was directed to the pelvis was grasped and brought out, omentopexy performed laparoscopically, secured to the abdominal wall with the transabdominal wall fixation suture of 2-0 Vicryl using a [place] needle. Once this was completed, pneumoperitoneum reduced, all instruments were removed, and all skin incisions were approximated with an interrupted subdermal 4-0 Monocryl, and [place] glue applied. Incision was made in the proximal volar forearm most visually below the antecubital fossa, carried down through skin and subcutaneous tissue, and a good-sized antecubital vein identified and dissected free. It had a smaller retrograde antecubital vein and communication of the basilic vein was of good caliber. Basilic vein was acceptable caliber. Cephalic vein was of good caliber also in the upper arm. The venous structures were dissected free such that I was able to divide a communicating, connecting branch to the basilic vein, preserving the basilic vein, and isolating the cephalic vein outflow directly. Perforating branch antecubital vein dissected free and branches were divided between clips and 4-0 silk ties and spatulated over branch points and interrogated with coronary dilators, passing coronary dilators from 2 mm to 3.5 mm coronary dilators the cephalic vein outflow in the upper arm. The patient was given 5000 units of heparin intravenously and cephalic vein flushed with heparinized saline solution and proximal radial artery dissected free, was of excellent caliber without arteriosclerotic disease, it was clamped proximally and distally with vascular clamps. Longitudinal arteriotomy was made sharply elongated with the [place] scissors for 2.5 cm anastomosis created between the end cephalic vein and the proximal radial artery with continuous suture of 6-0 Prolene. After completing the anastomosis, Doppler interrogation of cephalic vein outflow in the upper arm revealed a good signal. Good hemostasis was obtained with 6-0 Prolene. The patient was given protamine by Anesthesia 25 mg intravenously. Subcutaneous tissue was approximated with 3-0 Monocryl, skin with subdermal 4-0 Monocryl, and [place] glue applied. Job ID: [id number]
[2018-11-19] MEDS: Ondansetron PF 4 MG/2 ML Vial IVP PRN ×2 (02:45→11:25)
[2018-11-19] MEDS: Acetaminophen 500 MG TAB PO PRN (08:54)
[2018-11-19] MEDS: Calcitriol 0.25 MCG CAP PO SCH (08:56)
[2018-11-19] MEDS: predniSONE 5 MG TAB PO SCH (08:56)
[2018-11-19] MEDS: PARoxetine 20 MG TAB PO SCH (08:56)
[2018-11-19] MEDS: cloNIDine 0.3 MG TAB PO SCH ×2 (08:57→21:04)
[2018-11-19] MEDS: Tacrolimus 1 MG CAP PO SCH ×2 (08:57→21:03)
[2018-11-19] MEDS: Mycophenolate 250 MG CAP PO SCH ×2 (08:57→21:03)
[2018-11-19] MEDS: NIFEdipine XL 60 MG TAB PO SCH (08:57)
[2018-11-19] MEDS: ALPRAZolam 0.5 MG TAB PO SCH ×2 (08:57→21:04)
[2018-11-19] MEDS: Polyethylene Glycol 3350 17 GM Packet PO SCH (08:58)
[2018-11-19] MEDS: Loperamide HCl 2 MG CAP PO SCH ×2 (08:58→21:04)
[2018-11-19] MEDS ORDERED: Minoxidil 2.5 MG TAB PO SCH ×2 (09:00→09:38)
--- NOTE | 2018-11-19 10:12 | PRG ---
DATE OF SERVICE: SUBJECTIVE: Ms. Park is a 63-year-old white female, who is status post failed renal transplant, currently now ESRD, hypertension and admitted for initiation of dialysis. Due to her desire to proceed with peritoneal dialysis, a PD catheter has been placed. Temporarily, a cuffed hemodialysis catheter has been placed on the right lower extremity. No other complaints today. Doing well. The patient is ambulating. OBJECTIVE: VITAL SIGNS: Blood pressure is 184/81, heart rate 72, respiratory rate 20, pulse ox 96%, temperature 98.2. GENERAL: Noted to be awake, alert, comfortable, not in distress. SKIN: Adequate turgor. HEENT: Pinkish conjunctivae. Anicteric sclerae. No neck mass. No carotid bruits. No JVD. CHEST: No deformities. LUNGS: Clear breath sounds. HEART: Normal sinus rhythm. No murmurs, gallops, or rubs. ABDOMEN: Globular, soft, nontender. No masses. Positive for PD catheter. EXTREMITIES: Positive for right AV fistula. MEDICATIONS: Medications of 11/19/2018 were reviewed. LABORATORY DATA: Laboratories of 11/17/2018; white count 9.8, hemoglobin 10.6. Sodium 141, potassium 4.6, chloride 109, carbon dioxide 20, BUN 54, creatinine 4.1, calcium 8.4. ASSESSMENT AND PLAN: 1. Chronic heart failure/end-stage renal disease - continuing daily hemodialysis. My plan is to do a TR hemodialysis with fluid removal only as tolerated. 2. Labile hypertension - we will consider increasing minoxidil to 10 mg tab q.a.m. Continue the other BP medications. Awaiting outpatient dialysis placement. Recheck basic metabolic, CBC in a.m. Job ID: [id number]
[2018-11-19] MEDS: hydrALAZINE 20 MG/ML VIAL SLOW IVP PRN (10:24)
[2018-11-19] MEDS ORDERED: Heparin 1,000 UNITS/ML VIAL ONE (11:11)
--- NOTE | 2018-11-19 11:54 | PDOC.PN ---
- Subjective Encounter Start Date: 11/19/18 Encounter Start Time: 14:00 Subjective: no sob or chest pain -: has nausea with no relief from zofran - Objective Resuscitation Status - Order Detail: 11/16/18 13:04 Resuscitation Status Routine Resuscitation Status: FULL: Full Resuscitation MAR Reviewed: Yes Vital Signs & Weight: Vital Signs (12 hours) Temp Pulse Pulse Pulse Pulse Resp BP 11/19/18 10:24 184/81 H 11/19/18 08:57 184/81 H 11/19/18 08:52 78 80 75 11/19/18 07:44 98.2 F 72 20 11/19/18 04:00 98.9 F 77 20 11/19/18 00:00 82 BP BP BP BP Pulse Ox 11/19/18 10:24 11/19/18 08:57 96 11/19/18 08:52 181/81 H 224/93 H 195/77 H 11/19/18 07:44 226/89 H 96 11/19/18 04:00 175/75 H 97 11/19/18 00:00 157/84 H Weight Weight 153 lb 8 oz I&O: 11/18/18 11/19/18 11/20/18 06:59 06:59 06:59 Intake Total 236 100 Output Total 1000 Balance -764 100 Result Diagrams: 11/17/18 04:42 11/17/18 04:42 Phys Exam - Physical Examination HEENT: PERRLA, moist MMs Neck: no JVD, supple Respiratory: no wheezing, no rales Cardiovascular: RRR, no significant murmur Gastrointestinal: soft, non-tender, positive bowel sounds Musculoskeletal: no edema, pulses present right forearm edema Neurological: non-focal, moves all 4 limbs Psychiatric: normal affect, A&O x 3 Dx/Plan (1) ESRD (end stage renal disease) on dialysis Code(s): N18.6 - END STAGE RENAL DISEASE; Z99.2 - DEPENDENCE ON RENAL DIALYSIS Status: Acute Comment: transplant rejection, started on HD (2) UTI (urinary tract infection) Status: Acute Qualifiers: Urinary tract infection type: acute cystitis Hematuria presence: without hematuria Qualified Code(s): N30.00 - Acute cystitis without hematuria (3) Chronic anemia Code(s): D64.9 - ANEMIA, UNSPECIFIED Status: Chronic Comment: due to renal disease (4) Metabolic acidosis Code(s): E87.2 - ACIDOSIS Status: Acute (5) Sleep apnea Code(s): G47.30 - SLEEP APNEA, UNSPECIFIED Status: Chronic (6) Asthma Code(s): J45.909 - UNSPECIFIED ASTHMA, UNCOMPLICATED Status: Chronic Qualifiers: Asthma severity: unspecified severity (7) CAD (coronary artery disease) Code(s): I25.10 - ATHSCL HEART DISEASE OF [place] CORONARY ARTERY W/O ANG PCTRS Status: Chronic Qualifiers: Coronary Disease-Associated Artery/Lesion type: [place] artery [place] vs. transplanted heart: [place] heart Associated angina: without angina Qualified Code(s): I25.10 - Atherosclerotic heart disease of [place] coronary artery without angina pectoris (8) COPD (chronic obstructive pulmonary disease) Status: Chronic Qualifiers: COPD type: chronic bronchitis (9) H/O kidney transplant Status: Chronic Comment: has rejection now (10) Hypertension Code(s): I10 - ESSENTIAL (PRIMARY) HYPERTENSION Status: Chronic Qualifiers: Hypertension type: essential hypertension Qualified Code(s): I10 - Essential (primary) hypertension (11) Immunosuppressed status Code(s): D89.9 - DISORDER INVOLVING THE IMMUNE MECHANISM, UNSPECIFIED Status: Chronic - Plan has been started on HD and eventually will transition to PD when cath matur -: is on ceftriaxone for uti, got Right UE fistula and tunnelled cath in LE -: taper of cellcept and tacrolimus per 's advice -: continue minoxidil, clonidine, procardia xl, lipitor and prednisone -: to mobilize as tolerated, will need HD chair for dc plan * . Review of Systems - Medications/Allergies Allergies/Adverse Reactions: Allergies Allergy/AdvReac Type Severity Reaction Status Date / Time latex Allergy Verified 09/05/14 11:18 promethazine [From Phenergan] Allergy Verified 11/28/16 01:55 Medications: Current Medications Acetaminophen (Tylenol) 650 mg PO Q4H PRN PRN Reason: Headache/Fever/Mild Pain (1-3) Last Admin: 11/18/18 06:54 Dose: 650 mg Acetaminophen (Tylenol) 1,000 mg PO Q6H PRN PRN Reason: Moderate to Severe Pain (6-10) Last Admin: 11/19/18 08:54 Dose: 1,000 mg Alprazolam (Xanax) 0.5 mg PO BID [facility] Last Admin: 11/19/18 08:57 Dose: 0.5 mg Atorvastatin Calcium (Lipitor) 20 mg PO HS [facility] Last Admin: 11/18/18 21:32 Dose: 20 mg Calcitriol (Rocaltrol) 0.25 mcg PO DAILY [facility] Last Admin: 11/19/18 08:56 Dose: 0.25 mcg Clonidine (Catapres) 0.3 mg PO BID [facility] Last Admin: 11/19/18 08:57 Dose: 0.3 mg Clonidine (Catapres) 0.1 mg PO Q6H PRN PRN Reason: Hypertension Last Admin: 11/17/18 15:40 Dose: 0.1 mg Epoetin Inderjit (Procrit) 7,500 units SC Q7D@2100 [facility] Last Admin: 11/16/18 22:06 Dose: 7,500 units Hydralazine HCl (Apresoline) 5 mg SLOW IVP Q6HR PRN PRN Reason: Blood Pressure Hydralazine HCl (Apresoline) 20 mg SLOW IVP Q4H PRN PRN Reason: SBP>180 Last Admin: 11/19/18 10:24 Dose: 20 mg Ceftriaxone Sodium 1 gm/ (Sodium Chloride) 100 mls @ 200 mls/hr IVPB Q24HR [facility] Last Admin: 11/18/18 17:56 Dose: Not Given Loperamide HCl (Imodium) 2 mg PO BID [facility] Last Admin: 11/19/18 08:58 Dose: 2 mg Minoxidil (Minoxidil) 10 mg PO DAILY [facility] Mycophenolate Mofetil (Cellcept) 500 mg PO BID [facility] Last Admin: 11/19/18 08:57 Dose: 500 mg Nifedipine (Procardia Xl) 60 mg PO DAILY [facility] Last Admin: 11/19/18 08:57 Dose: 60 mg Read Ppd Test Site 0 each PO 1800 [facility] Stop: 11/20/18 18:01 Ondansetron HCl (Zofran) 4 mg IVP Q4H PRN PRN Reason: Nausea/Vomiting Last Admin: 11/19/18 11:25 Dose: 4 mg Paroxetine HCl (Paxil) 40 mg PO DAILY [facility] Last Admin: 11/19/18 08:56 Dose: 40 mg Polyethylene Glycol (Miralax) 17 gm PO DAILY [facility] Last Admin: 11/19/18 08:58 Dose: Not Given Prednisone (Prednisone) 7.5 mg PO QAM-WM [facility] Last Admin: 11/19/18 08:56 Dose: 7.5 mg Tacrolimus (Prograf) 2 mg PO BID [facility] Last Admin: 11/19/18 08:57 Dose: 2 mg Tramadol HCl (Ultram) 50 mg PO Q6H PRN PRN Reason: Pain 1-5 Trazodone HCl (Desyrel) 100 mg PO HS [facility] Last Admin: 11/18/18 21:33 Dose: 100 mg
[2018-11-19] MEDS: cefTRIAXone\\ROCEPHIN 1 GM in Sodium Chloride 0.9% 100 ML IVPB SCH (13:52)
[2018-11-19] MEDS ORDERED: Metoclopramide HCl 10 MG/2 ML VIAL IVP SCH (14:30)
--- NOTE | 2018-11-19 15:14 | PRG ---
DATE OF SERVICE: 11/19/2018 Norma Park is doing well today. She has initiated dialysis. She has a good thrill and bruit in her right upper arm cephalic vein fistula. The wound has a small hematoma, but the wound is stable. She has ecchymosis as expected. Overall, she is doing well. At this point, I will see her as needed. She should follow up in my office in about 3 to 4 weeks. Should leave the dressing over the peritoneal dialysis catheter and not change it. She should see the peritoneal dialysis nurse in 3 to 7 days to change the PD catheter and change the connections and begin instructing her own care. At this point, I will see her as needed in this hospitalization. Please call if necessary. Job ID: [id number]
[2018-11-19] MEDS: Atorvastatin Calcium 20 MG TAB PO SCH (21:04)
[2018-11-19] MEDS: traZODone HCl 50 MG TAB PO SCH (21:04)
[2018-11-19] MEDS: READ PPD TEST SITE PO SCH (21:10)
[2018-11-20 05:25] LABS: #Eosinphils 0.1 thou/uL (0.0-0.7); #Lymphocytes 1.3 thou/uL (1.20-3.40); #Monocytes 1.6 thou/uL (0.11-0.59); #Neutrophils 10.8 thou/uL (1.40-6.50); %Basophils 0.3 % (0.0-1.0); %Eosinophils 0.6 % (0.0-10.0); %Lymphocytes 9.6 % (21.0-51.0); %Monocytes 11.4 % (0.0-10.0); Hemoglobin 10.5 g/dL (12.0-16.0); Mean Corpuscular HGB CONC 30.4 g/dL (32.0-36.0); Mean Corpuscular Hemoglobin 27.8 pg (27.0-31.0); Mean Corpuscular Volume 91.5 fL (78.0-98.0); Mean Platelet Volume 9.9 fL (7.4-10.4); Platelet Count 203 thou/uL (130-400); RBC Distribution Width 17.8 % (11.5-14.5); Red Blood Cell (RBC) Count 3.76 mill/uL (4.20-5.40); White Blood Cell (WBC) Count 13.8 thou/uL (4.8-10.8)
[2018-11-20 05:48] LABS: Anion Gap 12 mmol/L (10-20); BUN (Urea Nitrogen) 17 mg/dL (9.8-20.1); Calc. Creatinine Clearance 18 mL/min (70-130); Calcium 8.4 mg/dL (7.8-10.44); Carbon Dioxide 27 mmol/L (23-31); Chloride 106 mmol/L (98-107); Estimated GFR-MDRD 15; Glucose 91 mg/dL (80-115); Potassium 3.7 mmol/L (3.5-5.1); Sodium 141 mmol/L (136-145)
[2018-11-20] MEDS ORDERED: Nitrofurantoin Monohyd/M-Cryst 100 MG CAP PO SCH (09:00)
--- NOTE | 2018-11-20 10:40 | PRG ---
DATE OF SERVICE: 11/20/2018 RENAL MEDICINE SUBJECTIVE: Ms. Park is a 63-year-old white female, who has a failed renal transplant and admitted for initiation of dialysis. I am currently at the bedside supervising her dialysis. She is tolerating her treatment. She has been having labile hypertension. For that reason, adjustment with her medications have been made. No other complaints today. No chest pain or shortness of breath. OBJECTIVE: VITAL SIGNS: Blood pressure is 152/70 with a heart rate of 71, respiratory rate 17, temperature 98.5, and pulse ox 96%. GENERAL: Noted to be awake, alert, comfortable, not in distress. SKIN: Adequate turgor. HEENT: She has a pinkish conjunctivae. Anicteric sclerae. NECK: No neck mass. No carotid bruits. No JVD. CHEST: No deformities. LUNGS: Clear breath sounds. HEART: Normal sinus rhythm. No murmur. No gallops. No rubs. ABDOMEN: Globular, soft, and nontender. No masses. Positive for PD catheter. EXTREMITIES: No edema. No deformities. Positive for right AV fistula. MEDICATIONS: Medications of November 20, 2018, were reviewed. LABORATORY DATA: Laboratories of November 20, 2018, white count 13.8 and hemoglobin 10.5. Sodium 141, potassium 3.7, chloride 106, carbon dioxide 27, BUN 17, creatinine 3.08, and calcium 8.4. ASSESSMENT AND PLAN: 1. Chronic renal failure - hemodialysis has been initiated due to progressive azotemia as well as uremic signs and symptoms. She has been having nausea and vomiting at home. My plan is to continue the hemodialysis on a daily basis. I will be again dialyzing her in a.m. After dialysis tomorrow, consider discharge for the patient. She is interested in pursuing peritoneal dialysis. We have made arrangements with the outpatient dialysis unit. 2. Labile hypertension, much improved. Continue current BP medications. 3. Failed renal transplant. Since the patient has been initially on dialysis, my plan is to discontinue her current CellCept. 4. Urinary tract infection. In view of her chronic renal failure, she is not a candidate for nitrofurantoin. For this reason, we will discontinue the nitrofurantoin. 5. Anemia. Continue Epogen. Job ID: [id number]
[2018-11-20] MEDS ORDERED: Heparin 1,000 UNITS/ML VIAL ONE (11:11)
[2018-11-20] MEDS: predniSONE 5 MG TAB PO SCH (12:05)
[2018-11-20] MEDS: NIFEdipine XL 60 MG TAB PO SCH (12:05)
[2018-11-20] MEDS: ALPRAZolam 0.5 MG TAB PO SCH ×2 (12:06→19:32)
[2018-11-20] MEDS: cloNIDine 0.3 MG TAB PO SCH ×2 (12:06→19:31)
[2018-11-20] MEDS: PARoxetine 20 MG TAB PO SCH (12:06)
[2018-11-20] MEDS: Minoxidil 10 MG TAB PO SCH (12:06)
[2018-11-20] MEDS: Loperamide HCl 2 MG CAP PO SCH ×2 (12:06→19:32)
[2018-11-20] MEDS: Calcitriol 0.25 MCG CAP PO SCH (12:06)
[2018-11-20] MEDS: Tacrolimus 1 MG CAP PO SCH ×2 (12:06→19:31)
[2018-11-20] MEDS: Polyethylene Glycol 3350 17 GM Packet PO SCH (12:07)
--- NOTE | 2018-11-20 12:44 | PDOC.PN ---
- Subjective Encounter Start Date: 11/20/18 Encounter Start Time: 10:00 Subjective: getting HD now -: no nausea or abd pain - Objective Resuscitation Status - Order Detail: 11/16/18 13:04 Resuscitation Status Routine Resuscitation Status: FULL: Full Resuscitation MAR Reviewed: Yes Vital Signs & Weight: Vital Signs (12 hours) Temp Pulse Resp BP Pulse Ox 11/20/18 07:24 98.5 F 71 17 152/70 H 96 11/20/18 05:30 78 163/74 H 11/20/18 04:45 97.6 F 74 20 183/75 H 95 Weight Weight 137 lb 12.623 oz I&O: 11/19/18 11/20/18 11/21/18 06:59 06:59 06:59 Intake Total 100 360 Output Total 1850 Balance 100 -1490 Result Diagrams: 11/20/18 04:24 11/20/18 04:24 Phys Exam - Physical Examination HEENT: PERRLA, moist MMs Neck: no JVD, supple Respiratory: no wheezing, no rales Cardiovascular: RRR, no significant murmur Gastrointestinal: soft, non-tender, positive bowel sounds PD cath+ Musculoskeletal: pulses present right UE edema is better this morning Neurological: non-focal, moves all 4 limbs Psychiatric: normal affect, A&O x 3 Dx/Plan (1) ESRD (end stage renal disease) on dialysis Code(s): N18.6 - END STAGE RENAL DISEASE; Z99.2 - DEPENDENCE ON RENAL DIALYSIS Status: Acute Comment: transplant rejection, started on HD (2) UTI (urinary tract infection) Status: Acute Qualifiers: Urinary tract infection type: acute cystitis Hematuria presence: without hematuria Qualified Code(s): N30.00 - Acute cystitis without hematuria (3) Chronic anemia Code(s): D64.9 - ANEMIA, UNSPECIFIED Status: Chronic Comment: due to renal disease (4) Metabolic acidosis Code(s): E87.2 - ACIDOSIS Status: Acute (5) Sleep apnea Code(s): G47.30 - SLEEP APNEA, UNSPECIFIED Status: Chronic (6) Asthma Code(s): J45.909 - UNSPECIFIED ASTHMA, UNCOMPLICATED Status: Chronic Qualifiers: Asthma severity: unspecified severity (7) CAD (coronary artery disease) Code(s): I25.10 - ATHSCL HEART DISEASE OF [place] CORONARY ARTERY W/O ANG PCTRS Status: Chronic Qualifiers: Coronary Disease-Associated Artery/Lesion type: [place] artery [place] vs. transplanted heart: [place] heart Associated angina: without angina Qualified Code(s): I25.10 - Atherosclerotic heart disease of [place] coronary artery without angina pectoris (8) COPD (chronic obstructive pulmonary disease) Status: Chronic Qualifiers: COPD type: chronic bronchitis (9) H/O kidney transplant Status: Chronic Comment: has rejection now (10) Hypertension Code(s): I10 - ESSENTIAL (PRIMARY) HYPERTENSION Status: Chronic Qualifiers: Hypertension type: essential hypertension Qualified Code(s): I10 - Essential (primary) hypertension (11) Immunosuppressed status Code(s): D89.9 - DISORDER INVOLVING THE IMMUNE MECHANISM, UNSPECIFIED Status: Chronic - Plan d/w , dc plan in am after HD -: she will be accepted for HD chair per -: to continue clonidine, procardia xl, minoxidil, lipitor -: will add asp, switch from ceftriaxone to macrobid for uti -: cellcept and tacrolimus taper per neprh adv * . Review of Systems - Medications/Allergies Allergies/Adverse Reactions: Allergies Allergy/AdvReac Type Severity Reaction Status Date / Time latex Allergy Verified 09/05/14 11:18 promethazine [From Phenergan] Allergy Verified 11/28/16 01:55 Medications: Current Medications Acetaminophen (Tylenol) 1,000 mg PO Q6H PRN PRN Reason: Moderate to Severe Pain (6-10) Last Admin: 11/19/18 08:54 Dose: 1,000 mg Alprazolam (Xanax) 0.5 mg PO BID [facility] Last Admin: 11/20/18 12:06 Dose: 0.5 mg Amoxicillin/Clavulanate Potassium (Augmentin) 500 mg PO Q12HR [facility] Atorvastatin Calcium (Lipitor) 20 mg PO HS [facility] Last Admin: 11/19/18 21:04 Dose: 20 mg Calcitriol (Rocaltrol) 0.25 mcg PO DAILY [facility] Last Admin: 11/20/18 12:06 Dose: 0.25 mcg Clonidine (Catapres) 0.3 mg PO BID [facility] Last Admin: 11/20/18 12:06 Dose: 0.3 mg Clonidine (Catapres) 0.1 mg PO Q6H PRN PRN Reason: Hypertension Last Admin: 11/17/18 15:40 Dose: 0.1 mg Epoetin Inderjit (Procrit) 7,500 units SC Q7D@2100 [facility] Last Admin: 11/16/18 22:06 Dose: 7,500 units Hydralazine HCl (Apresoline) 20 mg SLOW IVP Q4H PRN PRN Reason: SBP>180 Last Admin: 11/19/18 10:24 Dose: 20 mg Loperamide HCl (Imodium) 2 mg PO BID [facility] Last Admin: 11/20/18 12:06 Dose: 2 mg Minoxidil (Minoxidil) 10 mg PO DAILY [facility] Last Admin: 11/20/18 12:06 Dose: 10 mg Nifedipine (Procardia Xl) 60 mg PO DAILY [facility] Last Admin: 11/20/18 12:05 Dose: 60 mg Read Ppd Test Site 0 each PO 1800 [facility] Stop: 11/20/18 18:01 Last Admin: 11/19/18 21:10 Dose: Not Given Ondansetron HCl (Zofran) 4 mg IVP Q4H PRN PRN Reason: Nausea/Vomiting Last Admin: 11/19/18 11:25 Dose: 4 mg Paroxetine HCl (Paxil) 40 mg PO DAILY [facility] Last Admin: 11/20/18 12:06 Dose: 40 mg Polyethylene Glycol (Miralax) 17 gm PO DAILY [facility] Last Admin: 11/20/18 12:07 Dose: Not Given Prednisone (Prednisone) 7.5 mg PO QAM-WM [facility] Last Admin: 11/20/18 12:05 Dose: 7.5 mg Sodium Chloride (Flush - Normal Saline) 10 ml IVF Q12HR [facility] Last Admin: 11/20/18 12:11 Dose: 10 ml Sodium Chloride (Flush - Normal Saline) 10 ml IVF PRN PRN PRN Reason: Saline Flush Tacrolimus (Prograf) 2 mg PO BID [facility] Last Admin: 11/20/18 12:06 Dose: 2 mg Tramadol HCl (Ultram) 50 mg PO Q6H PRN PRN Reason: Pain 1-5 Trazodone HCl (Desyrel) 100 mg PO HS [facility] Last Admin: 11/19/18 21:04 Dose: 100 mg
[2018-11-20] MEDS: Mycophenolate 250 MG CAP PO SCH (14:25)
[2018-11-20] MEDS: Acetaminophen 500 MG TAB PO PRN ×2 (15:00→21:26)
[2018-11-20] MEDS: Ondansetron PF 4 MG/2 ML Vial IVP PRN (17:07)
[2018-11-20] MEDS: READ PPD TEST SITE PO SCH (17:45)
[2018-11-20] MEDS: traZODone HCl 50 MG TAB PO SCH (19:31)
[2018-11-20] MEDS: Atorvastatin Calcium 20 MG TAB PO SCH (19:31)
[2018-11-20] MEDS: Amoxicillin/Potassium Clav 500 MG TAB PO SCH (19:31)
[2018-11-20] MEDS: traMADol HCl 50 MG TAB PO PRN (19:35)
[2018-11-21] MEDS: traMADol HCl 50 MG TAB PO PRN (01:33)
[2018-11-21] MEDS: Ondansetron PF 4 MG/2 ML Vial IVP PRN ×3 (02:26→11:59)
[2018-11-21] MEDS ORDERED: Heparin 10,000 UNITS/ 10 ML VIAL ONE (07:53)
[2018-11-21] MEDS: Acetaminophen 500 MG TAB PO PRN (08:07)
--- NOTE | 2018-11-21 10:15 | PRG ---
DATE OF SERVICE: 11/21/2018 RENAL MEDICINE SUBJECTIVE: Ms. Park is a 63-year-old white female with known history of chronic renal failure, failed renal transplant, and currently undergoing hemodialysis. I am the bedside supervising her dialysis. She will do a 3-hour hemodialysis today. She also had a PD catheter in AV fistula placed during this hospitalization. She was initiated on dialysis due to uremic signs and symptoms. The nausea and vomiting improved with her. She also has been having labile hypertension and BP medications have been adjusted. BP is now much improved. OBJECTIVE: VITAL SIGNS: Blood pressure 127/62, heart rate 71, respiratory rate 13, temperature 98.3, and pulse ox 95%. GENERAL: Awake, alert, supine, and comfortable. SKIN: Adequate turgor. HEENT: Slightly pale conjunctivae. Anicteric sclerae. No neck mass. No carotid bruits. No JVD. CHEST: No deformities. LUNGS: Clear breath sounds. No wheezing. No crackles. HEART: Normal sinus rhythm. No murmurs, gallops, or rubs. ABDOMEN: Globular, soft, and nontender. No masses. Positive for PD catheter. EXTREMITIES: No edema. No deformities. MEDICATIONS: Medications of November 21, 2018, reviewed. LABORATORY DATA: Laboratories of November 20, 2018; white count 13.8, hemoglobin 10.5, sodium 141, potassium 3.7, chloride 106, carbon dioxide 27, BUN 17, creatinine 3.08, glucose 91, and calcium 8.4. ASSESSMENT AND PLAN: 1. Chronic renal failure/end-stage renal disease-hemodialysis have been initiated. We will do a 3 hour dialysis regimen today. The patient is okay for discharge. She has been instructed to call [facility] for a followup outpatient dialysis. She will pursue training in peritoneal dialysis. 2. Status post failed renal transplant. Mycophenolate has been discontinued. 3. Labile hypertension, much improved with addition of minoxidil. 4. Anemia, currently on weekly Epogen. 5. Urinary tract infection. The patient was started on Augmentin instead of Cipro. She is currently taking Augmentin 500 mg b.i.d. 6. From a renal point of view, the patient can be discharged. Job ID: [id number]
--- NOTE | 2018-11-21 10:46 | PDOC.PN ---
- Subjective Encounter Start Date: 11/21/18 Encounter Start Time: 08:45 Subjective: is getting HD, no sob -: mild nausea but wants to go home after HD - Objective Resuscitation Status - Order Detail: 11/16/18 13:04 Resuscitation Status Routine Resuscitation Status: FULL: Full Resuscitation MAR Reviewed: Yes Vital Signs & Weight: Vital Signs (12 hours) Temp Pulse Resp BP Pulse Ox 11/21/18 03:36 98.3 F 71 13 127/62 95 11/20/18 23:15 98.3 F 79 20 125/56 L 96 Weight Weight 135 lb 2.294 oz I&O: 11/20/18 11/21/18 11/22/18 06:59 06:59 06:59 Intake Total 360 240 Output Total 1850 300 Balance -1490 -60 Result Diagrams: 11/20/18 04:24 11/20/18 04:24 Phys Exam - Physical Examination HEENT: PERRLA, moist MMs Neck: no JVD, supple Respiratory: no wheezing, no rales Cardiovascular: RRR, no significant murmur Gastrointestinal: soft, non-tender, positive bowel sounds Musculoskeletal: no edema, pulses present right hand and forearm swelling has come down, pulse++ Neurological: non-focal, moves all 4 limbs Psychiatric: normal affect, A&O x 3 Dx/Plan (1) ESRD (end stage renal disease) on dialysis Code(s): N18.6 - END STAGE RENAL DISEASE; Z99.2 - DEPENDENCE ON RENAL DIALYSIS Status: Acute Comment: transplant rejection, started on HD (2) UTI (urinary tract infection) Status: Resolved Qualifiers: Urinary tract infection type: acute cystitis Hematuria presence: without hematuria Qualified Code(s): N30.00 - Acute cystitis without hematuria (3) Chronic anemia Code(s): D64.9 - ANEMIA, UNSPECIFIED Status: Chronic Comment: due to renal disease (4) Metabolic acidosis Code(s): E87.2 - ACIDOSIS Status: Resolved (5) Sleep apnea Code(s): G47.30 - SLEEP APNEA, UNSPECIFIED Status: Chronic (6) Asthma Code(s): J45.909 - UNSPECIFIED ASTHMA, UNCOMPLICATED Status: Chronic Qualifiers: Asthma severity: unspecified severity (7) CAD (coronary artery disease) Code(s): I25.10 - ATHSCL HEART DISEASE OF [place] CORONARY ARTERY W/O ANG PCTRS Status: Chronic Qualifiers: Coronary Disease-Associated Artery/Lesion type: [place] artery [place] vs. transplanted heart: [place] heart Associated angina: without angina Qualified Code(s): I25.10 - Atherosclerotic heart disease of [place] coronary artery without angina pectoris (8) COPD (chronic obstructive pulmonary disease) Status: Chronic Qualifiers: COPD type: chronic bronchitis (9) H/O kidney transplant Status: Chronic Comment: has rejection now (10) Hypertension Code(s): I10 - ESSENTIAL (PRIMARY) HYPERTENSION Status: Chronic Qualifiers: Hypertension type: essential hypertension Qualified Code(s): I10 - Essential (primary) hypertension (11) Immunosuppressed status Code(s): D89.9 - DISORDER INVOLVING THE IMMUNE MECHANISM, UNSPECIFIED Status: Chronic - Plan hemostable -: may dc home after HD -: will let her know the name of HD place for dialyzing on wed -: continue current meds for htn, faxed to pharmacy * .
[2018-11-21 11:13] VITALS: TEMP 97.5
[2018-11-21] MEDS: Calcitriol 0.25 MCG CAP PO SCH (11:14)
[2018-11-21] MEDS: NIFEdipine XL 60 MG TAB PO SCH (11:14)
[2018-11-21] MEDS: PARoxetine 20 MG TAB PO SCH (11:14)
[2018-11-21] MEDS: cloNIDine 0.3 MG TAB PO SCH (11:14)
[2018-11-21] MEDS: Polyethylene Glycol 3350 17 GM Packet PO SCH (11:14)
[2018-11-21] MEDS: Amoxicillin/Potassium Clav 500 MG TAB PO SCH (11:15)
[2018-11-21] MEDS: Loperamide HCl 2 MG CAP PO SCH (11:15)
[2018-11-21] MEDS: Minoxidil 10 MG TAB PO SCH (11:15)
[2018-11-21 11:19] VITALS: BP 120/70
[2018-11-21] MEDS: ALPRAZolam 0.5 MG TAB PO SCH (11:59)
[2018-11-21] MEDS: Tacrolimus 1 MG CAP PO SCH (11:59)
[2018-11-21] MEDS: predniSONE 5 MG TAB PO SCH (11:59)
--- NOTE | 2018-11-21 14:26 | DIS ---
DATE OF ADMISSION: 11/16/2018 DATE OF DISCHARGE: 11/21/2018 PRIMARY DISCHARGE DIAGNOSES: 1. End-stage renal disease, on hemodialysis. 2. 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 3. Immunosuppressed state due to medications for transplant. 4. Urinary tract infection. 5. Chronic anemia. 6. Metabolic acidosis due to renal failure. 7. Sleep apnea. 8. Stable asthma. 9. Coronary artery disease. 10. Chronic obstructive pulmonary disease. 11. Hypertension. PROCEDURES DONE DURING HOSPITALIZATION: The patient had chest x-ray done on the day of admission, which showed no acute process. The patient had right femoral vein cuffed tunneled hemodialysis catheter placed after failed attempt to place the same in the left IJ, through which the J-wire could not be threaded. This was done on 11/17/2018, by Dr. Beltre. She had placement of peritoneal dialysis catheter and right arm primary AV fistula placed by Dr. Beltre on 11/18/2018. Urine culture grew Klebsiella sensitive to all antibiotics. She had a white count of 14 with hemoglobin and hematocrit of 10 and 34, and platelet count of 255 on the day of admission. Discharge BUN and creatinine are 17 and 3.0. Admitting BUN and creatinine were 58 and 4.2. Serum bicarb was 19 on the day of admission with discharge number of 27. BNP 1144. Albumin 3.1, phosphorus 6.2 on admission. HBS antigen nonreactive, HBS antibody reactive. Hep C antibody nonreactive. DISCHARGE MEDICATIONS: 1. Alprazolam 1 mg p.o. twice daily. 2. Calcitriol 0.25 mcg p.o. daily. 3. Clonidine 0.3 mg p.o. twice daily. 4. Ferrous sulfate 325 mg twice daily. 5. Folic acid 1 mg daily. 6. Gabapentin 300 mg twice daily. 7. CellCept 500 mg p.o. twice daily. 8. Tacrolimus 2 mg p.o. twice daily. 9. Protonix 40 mg daily. 10. Paroxetine 40 mg daily. 11. Prednisone 7.5 mg daily. 12. Augmentin 500 mg p.o. twice daily for another three days. 13. Procardia XL 60 mg p.o. daily. 14. Minoxidil 10 mg p.o. daily. 15. Trazodone 100 mg p.o. at bedtime. 16. Tizanidine 4 mg p.o. at bedtime. INPATIENT CONSULT: 1. Dr. Julio for Nephrology. 2. Dr. Beltre, for vascular access. DISCHARGE PLAN: The patient to follow up with primary care physician in one week and Dr. Julio on Wednesday with outpatient hemodialysis. BRIEF COURSE DURING HOSPITALIZATION: The patient initially was sent from Dr. Julio's office as her renal transplant, which was placed in 2005, started to reject. The patient had progressive buildup of fluid with volume overload. Dr. Beltre was consulted and initial placement of tunneled catheter in her jugulars was failed due to canalization and the patient had tunnel catheter placed in the right femoral. The patient also had peritoneal dialysis catheter placed along with a right upper extremity fistula. The patient has been set up for outpatient hemodialysis. She had three sessions of hemodialysis during her stay here and has tolerated the procedure well. Outpatient hemodialysis has been set up by Dr. Julio and she will have her first outpatient dialysis on Wednesday. Her immunosuppressant medications including CellCept, Prograf, and prednisone will be slowly tapered in the next 4 [address] Julio. Please see a [id number] documentation on [employer] for the day of discharge. Job ID: [id number]
--- NOTE | 2018-11-22 12:02 | EKG ---
Test Reason : Blood Pressure : / mmHG Vent. Rate : 055 BPM Atrial Rate : 055 BPM P-R Int : 136 ms QRS Dur : 072 ms QT Int : 480 ms P-R-T Axes : 033 -29 042 degrees QTc Int : 459 ms Sinus bradycardia Otherwise normal ECG Confirmed by DAMIAN SIERRA D.O. ([id number]), visual effects editor SAMUEL BAEZ ([id number]) on 11/22/2018 12:02:18 PM Referred By: Confirmed By:DAMIAN SIERRA D.O.
== END 2018-11-21 15:17 | disposition home or self-care (01) | DRG 673 ==
LOC: ERS 08:57 → ERHOLD 12:05 → 2NO 14:40
PROVIDERS: ADMIT Internal Medicine; ATTEND Internal Medicine
PROC: 02HV33Z Insertion of Infusion Device into Superior Vena Cava, Percutaneous Approach (ICD-10-PCS; principal; 2018-11-16)
PROC: 5A1D70Z Performance of Urinary Filtration, Intermittent, Less than 6 Hours Per Day (ICD-10-PCS; 2018-11-16)
PROC: 03170JV Bypass Right Brachial Artery to Superior Vena Cava with Synthetic Substitute, Open Approach (ICD-10-PCS; 2018-11-18)
DX: T86.12 Kidney transplant failure (principal); N18.6 End stage renal disease; N25.81 Secondary hyperparathyroidism of renal origin; I12.0 Hypertensive chronic kidney disease with stage 5 chronic kidney disease or end stage renal disease; N17.9 Acute kidney failure, unspecified; N39.0 Urinary tract infection, site not specified; E87.2 Acidosis; F41.9 Anxiety disorder, unspecified; J44.9 Chronic obstructive pulmonary disease, unspecified; D63.1 Anemia in chronic kidney disease; Z99.2 Dependence on renal dialysis; I25.10 Atherosclerotic heart disease of native coronary artery without angina pectoris; G47.30 Sleep apnea, unspecified; J45.909 Unspecified asthma, uncomplicated; D89.9 Disorder involving the immune mechanism, unspecified; B96.1 Klebsiella pneumoniae [K. pneumoniae] as the cause of diseases classified elsewhere
CPT/HCPCS: 36415; 71045; 80048; 80053; 81003; 81015; 83690; 83735; 83880; 84100; 85025; 86580; 86704; 86706; 86803; 87077; 87086; 87186; 87340; 93005; 93970; 94760; 96360; C1752; C1769; G0365; G8978-GP-CJ; G8979-GP-CI; J0131; J0360; J0670; J0696; J1644; J2001; J2250; J2405; J2704; J2720; J2765; J3010; J7050; J7507; J7517; Q4081; S0028

== ENCOUNTER 2019-01-02 11:19 | Outpatient (CLI) | payer MEDICARE ==
--- NOTE | 2019-01-02 14:00 | RAD ---
ABDOMEN 1 VIEW: HISTORY: Abnormal findings on imaging of urinary organs. The patient is on peritoneal dialysis with her left- sided abdomen swollen and sore. FINDINGS: Pedicle screws and postsurgical changes at L4-L5. Large-caliber right venous access catheter with th e tip extending up to the T11 level. Peritoneal dialysis catheter overlies the left pelvis. There i s some gas and fecal material in the colon. No evidence of large or small bowel obstruction. No ove rt calculus. IMPRESSION: No bowel obstruction or overt calculus. Large-caliber right-sided venous access catheter extending f rom the right groin up to approximately T11. Left-sided peritoneal dialysis catheter coiled overlyin g the left hemipelvis. Postoperative changes at L4-L5 with pedicle screw hardware. No other acute p rocess. POS: [facility]
== END 2019-01-02 11:20 | disposition home or self-care (01) ==
LOC: BICRAD 11:19
PROVIDERS: ATTEND Internal Medicine Nephrology
DX: R93.49 Abnormal radiologic findings on diagnostic imaging of other urinary organs (principal); Z98.890 Other specified postprocedural states
CPT/HCPCS: 74018

== ENCOUNTER 2019-01-05 09:12 | Outpatient (CLI) | payer MEDICARE ==
--- NOTE | 2019-01-05 10:50 | RAD ---
CHEST 2 VIEWS: HISTORY: COPD. Cough and congestion. COMPARISON: 11/17/2018. FINDINGS: Cardiac silhouette and pulmonary vasculature are upper limits of normal. Mediastinum is midline. Jaelyn ngs are well inflated. No confluent airspace consolidation, pneumothorax, or pleural fluid are appar ent. Radiopaque tubing overlies the right upper quadrant. IMPRESSION: Borderline cardiomegaly and pulmonary vascular congestion without florid edema. POS: [facility]
== END 2019-01-05 09:13 | disposition home or self-care (01) ==
LOC: SCSRAD 09:12
PROVIDERS: ATTEND Internal Medicine Gastroenterology
DX: J45.909 Unspecified asthma, uncomplicated (principal); K52.9 Noninfective gastroenteritis and colitis, unspecified; R14.0 Abdominal distension (gaseous); R11.2 Nausea with vomiting, unspecified; N18.9 Chronic kidney disease, unspecified; D63.1 Anemia in chronic kidney disease; F17.200 Nicotine dependence, unspecified, uncomplicated; I51.7 Cardiomegaly; R09.89 Other specified symptoms and signs involving the circulatory and respiratory systems; T86.11 Kidney transplant rejection
CPT/HCPCS: 71046

== ENCOUNTER 2019-01-10 19:30 | Outpatient (CLI) | payer MEDICARE | END 2019-01-10 19:31 | disposition home or self-care (01) | LOC: SLEEPLAB 19:30 | DX: G47.33 Obstructive sleep apnea (adult) (pediatric) (principal) | CPT/HCPCS: 95811 ==

== ENCOUNTER 2019-04-21 10:15 | Outpatient (CLI) | payer MEDICARE ==
--- NOTE | 2019-04-21 10:50 | CT ---
CT OF THE ABDOMEN AND PELVIS WITHOUT IV CONTRAST INDICATION: Diarrhea and abdominal pain COMPARISON: December 08, 2009 FINDINGS: The lack of IV contrast limits evaluation of the solid organs of the abdomen and pelvis. ABDOMEN: Lung bases: Clear Liver: No focal lesion. Gallbladder: Surgically absent Pancreas: Normal. Adrenal glands: Normal. Spleen: Normal. Kidneys: The right [place] kidney is atrophic. The left [place] kidney is surgically absent. There is a left pelvic renal transplant kidney without evidence of hydronephrosis or definite focal renal lesion. Retroperitoneum of the upper abdomen: There are moderate calcifications involving the abdominal pelvi c vasculature. Additional findings: There is scattered fluid within the abdomen and pelvis which may be related to p eritoneal dialysate. There is a dialysis catheter pulled within the lower pelvis. Pelvis: Small and large bowel: There is postsurgical change at the anorectal junction which has occurred in t he interim. The colon is largely decompressed. The small bowel is of normal caliber. There are multiple loops of unopacified small bowel within the lower abdomen and pelvis slightly limiting the e xam. The appendix is not definitely identified. Bladder: Normal. Rectal and perirectal soft tissues:Normal. Reproductive structures: Surgically absent Free fluid in pelvis: There is moderate free fluid within the abdomen and pelvis which may be related to peritoneal dialysate Lymphadenopathy pelvis: No lymphadenopathy is evident. Osseous structures: There is postsurgical change consistent with a posterior lateral interbody fusion at L4-5. Advanced disc degenerative disease is seen at T11-T12. There is scattered degenerative and osteoarthritic changes. IMPRESSION: 1. Moderate free fluid within the abdomen and pelvis may reflect peritoneal dialysate. There is a per itoneal dialysis catheter within the lower pelvis. 2. The large bowel is largely decompressed. The small bowel is of normal caliber. The appendix was no t definitely seen. 3. Left pelvic transplant kidney without evidence of hydronephrosis.
== END 2019-04-21 10:16 | disposition home or self-care (01) ==
LOC: BICCT 10:15
PROVIDERS: ATTEND Internal Medicine Gastroenterology
DX: N18.9 Chronic kidney disease, unspecified (principal); R10.30 Lower abdominal pain, unspecified; R19.7 Diarrhea, unspecified; Z99.2 Dependence on renal dialysis; Z94.0 Kidney transplant status
CPT/HCPCS: 74176

== ENCOUNTER 2019-05-01 14:57 | Inpatient (IN) | payer MEDICARE ==
[~2019-05-01 14:57] MED LIST: Vancomycin HCl 1 GM in Premix Bag 1 BAG IVPB SCH
[2019-05-01 15:43] LABS: %Basophils 0.4 % (0.0-1.0); %Eosinophils 0.1 % (0.0-10.0); %Monocytes 3.7 % (0.0-10.0); %Neutrophils 86.8 % (42.0-75.0); Hemoglobin 10.2 g/dL (12.0-16.0); Mean Corpuscular HGB CONC 31.9 g/dL (32.0-36.0); Mean Corpuscular Hemoglobin 26.5 pg (27.0-31.0); Mean Platelet Volume 5.7 fL (7.4-10.4); Platelet Count 273 thou/uL (130-400); RBC Distribution Width 13.8 % (11.5-14.5); Red Blood Cell (RBC) Count 3.84 mill/uL (4.20-5.40); White Blood Cell (WBC) Count 9.6 thou/uL (4.8-10.8)
[2019-05-01 15:44] LABS: #Lymphocytes 0.9 thou/uL (1.20-3.40); #Monocytes 0.4 thou/uL (0.11-0.59); #Neutrophils 8.3 thou/uL (1.40-6.50)
[2019-05-01] MEDS ORDERED: cefTRIAXone\\ROCEPHIN 1 GM VIAL ONE (15:53)
[2019-05-01] MEDS ORDERED: Sodium Chloride 0.9% 100 ML ONE (15:53)
--- NOTE | 2019-05-01 15:59 | RAD ---
Chest AP view INDICATION: Altered mental status COMPARISON: Prior chest radiograph dated January 05, 2019 FINDINGS: Lungs:The lungs are clear Cardiac silhouette pulmonary vasculature:The cardiomediastinal silhouette appears within normal limit s. Pleural spaces:No pleural effusion or pneumothorax is demonstrated. Upper abdomen:No abnormality seen. Osseous structures: No acute osseous abnormality. Additional findings:None. IMPRESSION: No acute cardiopulmonary abnormality.
[2019-05-01 16:01] LABS: ALT (SGPT) 16 U/L (8-55); AST (SGOT) 24 U/L (5-34); Albumin 2.8 g/dL (3.4-4.8); Alkaline Phosphatase 71 U/L (40-150); Anion Gap 16 mmol/L (10-20); BUN (Urea Nitrogen) 35 mg/dL (9.8-20.1); Bilirubin, Total 0.3 mg/dL (0.2-1.2); CK (CPK) 158 U/L (29-168); Calc. Creatinine Clearance 0 mL/min (70-130); Calcium 8.6 mg/dL (7.8-10.44); Carbon Dioxide 24 mmol/L (23-31); Chloride 96 mmol/L (98-107); Estimated GFR-MDRD 8; Globulin 2.1 g/dL (2.4-3.5); Glucose 118 mg/dL (80-115); Lipase 51 U/L (8-78); Protein, Total 4.9 g/dL (6.0-8.3); Sodium 133 mmol/L (136-145)
[2019-05-01 16:12] LABS: Potassium 2.9 mmol/L (3.5-5.1)
[2019-05-01 16:19] LABS: CKMB 2.8 ng/mL (0-6.6)
[2019-05-01] MEDS ORDERED: Potassium Chloride 20 MEQ TAB ONE (16:20)
[2019-05-01 16:30] LABS: Bilirubin Negative (Negative); Blood, Urine Small (Negative); Clarity Hazy (Clear); Glucose, Urine (Dipstick) Negative (Negative); Leukocyte Trace (Negative); Nitrite Negative (Negative); Protein, Urine (Dipstick) > or equal to 300 mg/dL (Neg-Trace); Specific Gravity, Urine 1.015 (1.005-1.030); Urobilinogen 0.2 mg/dL (0.2-1.0); pH, Urine 8.5 (5.0-9.0)
[2019-05-01 16:36] LABS: Bacteria/HPF 1+ HPF (None Seen); RBC/HPF 0-3 HPF (0-3); WBC/HPF 0-3 HPF (0-3)
--- NOTE | 2019-05-01 16:45 | CT ---
CT HEAD NONCONTRAST: INDICATIONS: Altered mental status. COMPARISON: Reference made to 08/04/2018. FINDINGS: There is mild enlargement of the ventricular system. Mild chronic microvascular ischemic disease of the cerebral white matter is present. There is no evidence of intracranial hemorrhage, mass effect, or midline shift. Mucosal thickening of the paranasal sinuses is seen. IMPRESSION: 1. Mild enlargement of the ventricular system, which is out of proportion to the size of the cerebra l sulci. Recommend clinical correlation to exclude evidence of normal pressure hydrocephalus. 2. Mild chronic microvascular ischemic disease of the cerebral white matter. POS: [facility]
--- NOTE | 2019-05-01 16:52 | CT ---
CT ABDOMEN AND PELVIS WITHOUT CONTRAST: COMPARISON: 04/21/2019 INDICATIONS: Abdominal pain. FINDINGS: There is scattered abdominal and pelvic ascites. An indwelling coiled catheter is present, terminati ng in the pelvis, which may relate to a peritoneal dialysis catheter. Correlate clinically. Intrins ic density of the hepatic parenchyma is present, without a discrete hepatic lesion identified. There is evidence of a prior cholecystectomy. Transplanted kidney of the left lower quadrant is present. Prominent thickening of the urinary bladder is demonstrated. Imaged osseous structures reveal no ev idence of interval acute abnormality. IMPRESSION: 1. Limited evaluation without intravenous or enteric contrast. 2. There is generalized abdominopelvic ascites again demonstrated, with an indwelling presumed perit erickson dialysis catheter. Correlate clinically. 3. Wall thickening of the urinary bladder, asymmetrically present on the right. Component may relat e to redundancy from decreased distention, although the possibility of a mural-based lesion and/or se quelae from chronic bladder disease may also be present. Recommend clinical correlation and, as nece ssary, followup with a urologic consultation for cystoscopy may be performed. POS: [facility]
[2019-05-01 19:53] VITALS: BMI 25.9
[2019-05-01] MEDS: tiZANidine HCl 4 MG TAB PO SCH (21:04)
[2019-05-01] MEDS ORDERED: Loperamide HCl 2 MG CAP PO PRN (21:53)
[2019-05-01] MEDS ORDERED: HOLD VANCOMYCIN FOR LEVEL >20 FS SCH (22:45)
[2019-05-02] MEDS: Acetaminophen 325 MG TAB PO PRN ×4 (00:13→14:10)
--- NOTE | 2019-05-02 03:04 | HP ---
PRIMARY CARE PHYSICIAN: Audi Donnelly MD. CHIEF COMPLAINT: Confusion. HISTORY OF PRESENT ILLNESS: The history of present illness is very limited as the patient is a poor historian and her has since left and she is not able to give me much of a history. Ms. Park is a 63-year-old female who has a history of end-stage renal disease, on peritoneal dialysis. She apparently has been having abdominal pain, she says, for years, but it apparently has gotten worse in the last few days as well as having worse back pain, she says, and her also noted that she was confused. She cannot really give me much detail of what the confusion consisted of other than she was "forgetting things." Apparently, she was brought to the emergency room and at some point, there was some dialysis fluid taken and there is concern for peritonitis. She tells me it was done in the ER, it may have actually been done in Dr. Julio's office or he sent a nurse to do it, but otherwise I am not really sure when it was actually performed. She denies having any nausea , vomiting, or diarrhea. She denies any fever, but currently she is still confused, she does not know what month it is and she has a long time trying to think what day of the week it is. REVIEW OF SYSTEMS: CONSTITUTIONAL: There has been no subjective fever. No chills. No night sweats. No weight loss. HEENT: She denies any headaches. No dizziness. No visual changes. No sore throat, rhinorrhea, or neck pain, no adenopathy. PULMONARY: No hemoptysis. No cough. No wheezing. CARDIOVASCULAR: She denies any chest pain. No shortness of breath. No PND. No orthopnea. GASTROINTESTINAL: As the history of present illness. GENITOURINARY: No urinary frequency or hematuria. No hesitancy. MUSCULOSKELETAL: She complains of chronic back pain, which has been worse lately. No leg pain or swelling. NEUROLOGIC: No focal weakness or numbness. No seizures. PSYCHIATRIC: No symptoms of anxiety or depression. SKIN AND INTEGUMENT: No skin changes. No rashes. PAST MEDICAL HISTORY: Significant for end-stage renal disease on peritoneal dialysis. She is also status post renal transplant, hyperlipidemia, congestive heart failure, COPD, and neuropathy. PAST SURGICAL HISTORY: She had a renal transplant, cholecystectomy, cardiac catheterization, and hysterectomy. ALLERGIES: TO LATEX, WHICH CAUSES A RASH AND PROMETHAZINE, WHICH MAKES HER ANXIOUS. FAMILY HISTORY: Significant for coronary artery disease and dementia. SOCIAL HISTORY: She is a full code. She smokes about 5 cigarettes a day for the last 30 years. She denies any alcohol use. She is and her is her medical power of workers compensation defense attorney. CURRENT MEDICATIONS: Include; 1. Tizanidine 4 mg at bedtime. 2. Prograf 2 mg twice a day. 3. Prednisone 7.5 mg daily. 4. Paroxetine 40 mg daily. 5. Zofran 4 mg q.6 p.r.n. 6. CellCept 500 mg twice daily. 7. Loperamide 2 mg twice a day as needed. 8. Gabapentin 300 mg twice daily. 9. Iron sulfate 325 mg twice a day. 10. Clonidine 0.1 p.r.n. 11. Calcitriol 0.25 mcg p.o. daily. 12. Alprazolam 1 mg twice a day. PHYSICAL EXAMINATION: GENERAL: She is alert, but she is a bit disoriented. She knows she is at the hospital. She knows her name. She knows it is 2018. She thinks it is January and she was unclear of the day of the week, she thought it was Wednesday, but it is Wednesday. She just appears clinically ill. VITAL SIGNS: Blood pressure was 156/70, heart rate 75, respiratory rate of 20, and temperature is 98.2. HEENT: Her pupils are equal, round, and reactive to light. Extraocular muscles are intact. Her sclerae are anicteric. Throat; no erythema, no exudates. NECK: No adenopathy. No bruits. LUNGS: She has some scattered rhonchi and wheezing, but very faint. CARDIOVASCULAR: She had a normal S1, S2. There is no S3 or S4. No murmurs, clicks, or rubs. ABDOMEN: Slightly distended, soft. There is nontender. Positive for bowel sounds. There is no organomegaly. EXTREMITIES: There is no calf tenderness. No joint effusions. NEUROLOGIC: She is moving all extremities and muscle strength is intact. SKIN AND INTEGUMENT: She has scattered bruising on her upper as well as lower extremities and some skin tears. LABORATORY RESULTS: Urinalysis shows 1+ bacteria. There is small blood and trace leukocyte esterase. CBC; the white blood cell count is 9.6, hemoglobin 10.2, hematocrit is 31.9, and platelet count is 273. Sodium 133, potassium 2.9, chloride is 96, CO2 is 24, BUN of 35, creatinine 5.4, glucose is 118. Troponin was 0.037. Natriuretic peptide was 1081. ASSESSMENT: 1. This is a pleasant 63-year-old female who presents with confusion and concern for peritonitis and relationship to peritoneal dialysis. Likely she has a metabolic encephalopathy secondary to the infection. She will be admitted to telemetry due to her hypokalemia. She has already been started on vancomycin and Rocephin and we will go ahead and continue those antibiotics and follow up on the culture results from the diasylate. 2. Hypokalemia. This will need to be cautiously replaced in a patient with end-stage renal disease. 3. Chronic obstructive pulmonary disease. We will go ahead and restart her home medications as well as DuoNeb p.r.n. 4. History of congestive heart failure. Her most recent echo was in 2017 and at that time she had preserved ejection fraction of 65% to 70%, evidence of diastolic dysfunction. This is clinically compensated. 5. End-stage renal disease. She has a history of renal transplant. She is on chronic immunosuppressive medications and also on peritoneal dialysis. We will be consulting her senior engineering specialist for her maintenance renal replacement therapy. Job ID: [id number] [facility]
[2019-05-02] MEDS: Ondansetron ODT 4 MG TAB PO PRN (05:14)
[2019-05-02 06:13] LABS: #Basophils 0.1 thou/uL (0.0-0.2); #Eosinphils 0.1 thou/uL (0.0-0.7); #Lymphocytes 1.4 thou/uL (1.20-3.40); #Monocytes 0.8 thou/uL (0.11-0.59); #Neutrophils 6.8 thou/uL (1.40-6.50); %Basophils 0.6 % (0.0-1.0); %Eosinophils 1.1 % (0.0-10.0); %Lymphocytes 15.2 % (21.0-51.0); %Monocytes 8.5 % (0.0-10.0); %Neutrophils 74.5 % (42.0-75.0); Hemoglobin 11.9 g/dL (12.0-16.0); Mean Corpuscular HGB CONC 31.7 g/dL (32.0-36.0); Mean Corpuscular Hemoglobin 27.6 pg (27.0-31.0); Mean Corpuscular Volume 87.1 fL (78.0-98.0); Mean Platelet Volume 9.8 fL (7.4-10.4); Platelet Count 228 thou/uL (130-400); RBC Distribution Width 13.7 % (11.5-14.5); Red Blood Cell (RBC) Count 4.31 mill/uL (4.20-5.40); White Blood Cell (WBC) Count 9.1 thou/uL (4.8-10.8)
[2019-05-02 06:29] LABS: Anion Gap 19 mmol/L (10-20); BUN (Urea Nitrogen) 34 mg/dL (9.8-20.1); Calc. Creatinine Clearance 10 mL/min (70-130); Calcium 8.8 mg/dL (7.8-10.44); Carbon Dioxide 20 mmol/L (23-31); Chloride 100 mmol/L (98-107); Estimated GFR-MDRD 8; Glucose 81 mg/dL (80-115); Potassium 3.5 mmol/L (3.5-5.1); Sodium 135 mmol/L (136-145)
--- NOTE | 2019-05-02 07:55 | PDOC.PN ---
- Subjective Encounter Start Date: 05/02/19 Encounter Start Time: 13:15 Subjective: Patient reports feeling a lot less confused. Knows where she is and -: situation. No abdominal pain, just a little sore. No fever. No other -: complaints. - Objective Resuscitation Status - Order Detail: 05/01/19 21:47 Resuscitation Status Routine Resuscitation Status: FULL: Full Resuscitation MAR Reviewed: Yes Vital Signs & Weight: Vital Signs (12 hours) Temp Pulse Resp BP Pulse Ox 05/02/19 07:27 97.9 F 71 19 186/73 H 96 05/02/19 03:25 97.8 F 77 20 152/67 H 93 L 05/02/19 00:00 98.2 F 73 20 137/65 93 L Weight Weight 133 lb 1 oz I&O: 05/01/19 05/02/19 05/03/19 06:59 06:59 06:59 Intake Total 550 Output Total 200 Balance 350 Result Diagrams: 05/02/19 05:14 05/02/19 05:14 Phys Exam - Physical Examination Constitutional: NAD HEENT: moist MMs Respiratory: no wheezing, no rales, no rhonchi Cardiovascular: RRR, no significant murmur Gastrointestinal: soft, no distention, positive bowel sounds mild TTP diffusely, no guarding, no masses Musculoskeletal: no edema Neurological: non-focal, moves all 4 limbs Psychiatric: normal affect, A&O x 3 Dx/Plan (1) Acute metabolic encephalopathy Code(s): G93.41 - METABOLIC ENCEPHALOPATHY Status: Acute Comment: uncertain eitiology, concern in ER for infection due to recent peritonitis currently on suppressive Levoquin, however no peritoneal fluid analysis was done this visit, no leukocytosis in blood, no fever, no vial sign abnormalities, and blood cultures so far are negative. Currently on Rocephin and Vancomycin since 2018. Dr. Julio consulted. (2) ESRD on peritoneal dialysis Code(s): N18.6 - END STAGE RENAL DISEASE; Z99.2 - DEPENDENCE ON RENAL DIALYSIS Status: Chronic (3) Hypokalemia Code(s): E87.6 - HYPOKALEMIA Status: Resolved (4) COPD (chronic obstructive pulmonary disease) Status: Chronic Qualifiers: COPD type: chronic bronchitis (5) CAD (coronary artery disease) Code(s): I25.10 - ATHSCL HEART DISEASE OF [place] CORONARY ARTERY W/O ANG PCTRS Status: Chronic Qualifiers: Coronary Disease-Associated Artery/Lesion type: [place] artery [place] vs. transplanted heart: [place] heart Associated angina: without angina Qualified Code(s): I25.10 - Atherosclerotic heart disease of [place] coronary artery without angina pectoris (6) Chronic anemia Code(s): D64.9 - ANEMIA, UNSPECIFIED Status: Chronic Comment: due to renal disease, mild (7) Sleep apnea Code(s): G47.30 - SLEEP APNEA, UNSPECIFIED Status: Chronic (8) Tobacco use Code(s): Z72.0 - TOBACCO USE Status: Chronic - Plan cont current plan of care, continue antibiotics, PT/OT, DVT proph w/heparin, DVT proph w/SCDs * . - Discharge Day Encounter end time: 13:30
[2019-05-02] MEDS ORDERED: Vancomycin HCl 1 GM in Premix Bag 1 BAG IVPB SCH (09:00)
[2019-05-02] MEDS ORDERED: Vancomycin HCl 750 MG in Sodium Chloride 0.9% 250 ML 250 ML IVPB SCH (09:00)
[2019-05-02] MEDS ORDERED: Gabapentin 300 MG CAP PO SCH (09:00)
[2019-05-02] MEDS ORDERED: Vancomycin HCl 250 MG in Sodium Chloride 0.9% 100 ML IVPB SCH (09:00)
[2019-05-02] MEDS ORDERED: Vancomycin HCl 500 MG in Sodium Chloride 0.9% 100 ML IVPB SCH (09:00)
[2019-05-02] MEDS ORDERED: Mycophenolate 250 MG CAP PO SCH (09:00)
[2019-05-02] MEDS: ALPRAZolam 0.5 MG TAB PO SCH ×2 (09:15→21:12)
[2019-05-02] MEDS: Calcitriol 0.25 MCG CAP PO SCH (09:16)
[2019-05-02] MEDS: Ferrous Sulfate 325 MG TAB PO SCH ×2 (09:16→18:18)
[2019-05-02] MEDS: PARoxetine 20 MG TAB PO SCH (09:16)
[2019-05-02] MEDS: Famotidine 20 MG TAB PO SCH (09:16)
[2019-05-02] MEDS: predniSONE 5 MG TAB PO SCH (09:17)
[2019-05-02] MEDS: Tacrolimus 1 MG CAP PO SCH ×2 (09:17→21:12)
[2019-05-02] MEDS: Heparin 5,000 UNITS/ML VIAL SC SCH ×3 (09:18→21:12)
[2019-05-02 09:20] LABS: Vancomycin, Random 11.2 ug/mL (See Comment)
[2019-05-02] MEDS: Gabapentin 100 MG CAP PO SCH ×2 (10:22→21:12)
[2019-05-02] MEDS: hydrALAZINE 20 MG/ML VIAL SLOW IVP PRN ×3 (11:35→21:21)
--- NOTE | 2019-05-02 14:30 | CON ---
DATE OF CONSULTATION: HISTORY OF PRESENT ILLNESS: Ms. Park is a 63-year-old white female with known history of ESRD, status post failed renal transplant, currently on peritoneal dialysis. She was admitted for mental status change and confusion. This episode has happened several times in the past. The patient has been advised regarding judicious use of her sedatives. She admitted taking her Xanax in combination with trazodone. This morning, she is more awake. Recently, the patient was diagnosed to have peritonitis. She initially received intraperitoneal vancomycin and Levaquin. Results of the PD fluid showed a Staph/Gram-positive cocci, which was sensitive to Levaquin. Currently, she is on IV vancomycin and IV ceftriaxone. We will continue this for the moment, and on discharge, consider resuming back Levaquin 250 mg tablet every other day. No other complaints today. The patient wanting to go home. REVIEW OF SYSTEMS: Positive for mental status change. No chest pain. No shortness of breath. No abdominal pain. No nausea. No vomiting. No headache. No diplopia. Occasional tremors. No sore throat. No hematochezia. No melena. No hematemesis. No dysuria. Appetite and energy level are fair. Occasional joint pains. No abdominal pain. No fever or chills. MEDICATIONS: The patient is currently on, 1. Xanax 1 mg p.o. b.i.d. 2. Calcitriol 0.25 mcg tablet daily. 3. Ceftriaxone 1 g daily. 4. Catapres 0.1 mg q.4 p.r.n. 5. Pepcid 20 mg daily. 6. Ferrous sulfate 325 mg p.o. b.i.d. 7. Gabapentin 300 mg p.o. b.i.d. 8. Heparin 5000 units subcu t.i.d. 9. Hydralazine p.r.n. 10. CellCept 500 mg p.o. b.i.d. 11. Paroxetine 40 mg tablet daily. 12. Zofran p.r.n. 13. Prednisone 7.5 mg daily. 14. Prograf 2 mg p.o. b.i.d. 15. Vancomycin 1 g p.r.n.-sliding scale. PAST MEDICAL HISTORY: 1. ESRD secondary to failed renal transplant-currently on CCPD regimen. 2. Anxiety. 3. Insomnia. 4. Secondary hyperparathyroidism. 5. Hypertension. 6. History of depression. 7. COPD. 8. History of noncompliance. 9. Status post urinary tract infection. 10. History of diabetic gastroparesis. 11. Status post non-Q-wave myocardial infarction. 12. History of status post pancreatitis. 13. Restless legs syndrome. 14. Status post FSGS. PAST SURGICAL HISTORY: Status post colonoscopy; status post cadaveric renal transplant in [facility]; status post leg surgery; status post ERCP; status post AV fistula placement; status post cardiac cath; status post surgery of the right kidney; status post vaginal hysterectomy; status post PD catheter placement with subsequent removal; status post PD catheter placement; status post leg surgery; status post cuffed dialysis catheter placement. 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 Status post multiple blood transfusions. No alcohol intake. No IV drug abuse. She is . No children. Lives in [place]. FAMILY HISTORY: No family history of ESRD. ALLERGIES: LATEX AND ADVERSE REACTION TO PHENERGAN. TRAUMA: Status post fall with left tibia and fibula-comminuted fracture. IMMUNIZATION: Up-to-date. HOSPITALIZATION: Please see past medical history. PHYSICAL EXAMINATION: VITAL SIGNS: Blood pressure is noted at 186/73, heart rate 71, respiratory rate 19, temperature 97.9, pulse ox 96%. GENERAL: Noted to be awake, comfortable, not in distress. SKIN: Adequate turgor. HEENT: Pinkish conjunctivae. Anicteric sclerae. NECK: No neck mass. No carotid bruits. No JVD. CHEST: No deformities. LUNGS: Clear breath sounds. HEART: Normal sinus rhythm. No murmurs, no gallops, no rubs. ABDOMEN: Globular, soft. Nontender. No masses. EXTREMITIES: No edema. No deformities. NEUROLOGICAL: Some mild tremors noted. LABORATORY DATA: Laboratories of May 02, 2019, white count 9.1, hemoglobin 11.9. Sodium 135, potassium 3.5, chloride 100, carbon dioxide 20, BUN 34, creatinine 5.3, glucose 81, calcium 8.8. BNP is 1081. IMAGING STUDIES: CT scan of the brain, no acute intracranial abnormality. ASSESSMENT AND PLAN: 1. Mental status change-drug induced. I would suggest we taper down on the patient's Xanax and trazodone as needed. We will also adjust gabapentin to a once a day dosing. 2. End-stage renal disease. We will continue current CCPD regimen. With her failed renal transplant, I would suggest we can discontinue the CellCept. In the future, continue to taper Prograf. 3. Noncompliance with dialysis-the patient has been instructed regarding doing regular CCPD at home. 4. Peritonitis. Recently, he was diagnosed with peritonitis. Continue IV antibiotics. Consider changing to p.o. Levaquin 250 mg tab every other day on discharge. 5. Overall agree with current management. Job ID: [id number]
[2019-05-02] MEDS: cloNIDine 0.1 MG TAB PO PRN (15:36)
[2019-05-02] MEDS ORDERED: cefTRIAXone\\ROCEPHIN 1 GM in Sodium Chloride 0.9% 100 ML IVPB SCH (16:00)
[2019-05-02] MEDS: Ondansetron PF 4 MG/2 ML Vial IVP PRN (17:17)
[2019-05-02] MEDS: traMADol HCl 50 MG TAB PO PRN (18:18)
[2019-05-02] MEDS: tiZANidine HCl 4 MG TAB PO SCH (21:15)
[2019-05-03] MEDS: traMADol HCl 50 MG TAB PO PRN ×3 (00:52→17:56)
[2019-05-03] MEDS: Acetaminophen 325 MG TAB PO PRN (04:48)
[2019-05-03 06:55] LABS: #Basophils 0.1 thou/uL (0.0-0.2); #Eosinphils 0.2 thou/uL (0.0-0.7); #Lymphocytes 1.2 thou/uL (1.20-3.40); #Monocytes 0.7 thou/uL (0.11-0.59); #Neutrophils 5.9 thou/uL (1.40-6.50); %Basophils 0.8 % (0.0-1.0); %Lymphocytes 15.1 % (21.0-51.0); %Monocytes 8.5 % (0.0-10.0); %Neutrophils 73.6 % (42.0-75.0); Hemoglobin 11.1 g/dL (12.0-16.0); Mean Corpuscular HGB CONC 31.3 g/dL (32.0-36.0); Mean Corpuscular Hemoglobin 27.6 pg (27.0-31.0); Mean Corpuscular Volume 88.2 fL (78.0-98.0); Mean Platelet Volume 8.3 fL (7.4-10.4); Platelet Count 262 thou/uL (130-400); RBC Distribution Width 13.8 % (11.5-14.5); Red Blood Cell (RBC) Count 4.03 mill/uL (4.20-5.40)
[2019-05-03 07:14] LABS: Anion Gap 15 mmol/L (10-20); BUN (Urea Nitrogen) 31 mg/dL (9.8-20.1); Calc. Creatinine Clearance 11 mL/min (70-130); Calcium 8.6 mg/dL (7.8-10.44); Carbon Dioxide 25 mmol/L (23-31); Chloride 101 mmol/L (98-107); Estimated GFR-MDRD 9; Glucose 97 mg/dL (80-115); Sodium 138 mmol/L (136-145)
[2019-05-03 07:19] LABS: Potassium 2.5 mmol/L (3.5-5.1)
[2019-05-03] MEDS ORDERED: Potassium Chloride 20 MEQ TAB PO SCH (07:45)
[2019-05-03] MEDS: cloNIDine 0.1 MG TAB PO PRN ×3 (07:48→17:55)
[2019-05-03] MEDS: Ondansetron PF 4 MG/2 ML Vial IVP PRN ×3 (07:48→22:14)
--- NOTE | 2019-05-03 08:11 | PDOC.PN ---
- Subjective Encounter Start Date: 05/03/19 Encounter Start Time: 13:30 Subjective: Patient with nause and vomiting since this AM. Complaining of -: severe abdominal pain. Denies coughing, though when I was in the room -: patient was violently coughing and gagging, not vomiting. - Objective Resuscitation Status - Order Detail: 05/01/19 21:47 Resuscitation Status Routine Resuscitation Status: FULL: Full Resuscitation MAR Reviewed: Yes Vital Signs & Weight: Vital Signs (12 hours) Temp Pulse Resp BP BP Pulse Ox 05/03/19 07:48 203/82 H 05/03/19 07:44 97.9 F 79 20 203/82 H 97 05/03/19 07:34 78 202/83 H 05/03/19 04:09 97.8 F 73 17 156/67 H 94 L 05/03/19 00:53 85 118/51 L 05/02/19 23:20 97.6 F 72 18 152/70 H 97 05/02/19 21:21 71 183/67 H Weight Weight 133 lb 1 oz I&O: 05/02/19 05/03/19 05/04/19 06:59 06:59 06:59 Intake Total 550 Output Total 200 Balance 350 Result Diagrams: 05/03/19 05:44 05/03/19 15:23 Phys Exam - Physical Examination HEENT: moist MMs Respiratory: no wheezing, no rales, no rhonchi Cardiovascular: RRR, no significant murmur Gastrointestinal: soft, non-tender, positive bowel sounds complains of JOSEF pain, but belly very soft, able to press in deeply without tenderness or guarding Musculoskeletal: no edema Neurological: non-focal, moves all 4 limbs Psychiatric: normal affect, A&O x 3 Dx/Plan (1) Acute metabolic encephalopathy Code(s): G93.41 - METABOLIC ENCEPHALOPATHY Status: Acute Comment: uncertain eitiology, concern in ER for infection due to recent peritonitis currently on suppressive Levoquin, however no peritoneal fluid analysis was done this visit, no leukocytosis in blood, no fever, no vial sign abnormalities, and blood cultures so far are negative. Currently on Rocephin and Vancomycin since 2018. Dr. Julio consulted. He believes this is due to recurrent overuse of sedating medications at home. Will wean back sedating medications. Can d/c home back on Levaquin suppression once cleared by Dr. Julio. (2) ESRD on peritoneal dialysis Code(s): N18.6 - END STAGE RENAL DISEASE; Z99.2 - DEPENDENCE ON RENAL DIALYSIS Status: Chronic (3) Hypokalemia Code(s): E87.6 - HYPOKALEMIA Status: Acute Comment: recurrent, repleting, will recheck this afternoon (4) COPD (chronic obstructive pulmonary disease) Status: Chronic Qualifiers: COPD type: chronic bronchitis (5) CAD (coronary artery disease) Code(s): I25.10 - ATHSCL HEART DISEASE OF [place] CORONARY ARTERY W/O ANG PCTRS Status: Chronic Qualifiers: Coronary Disease-Associated Artery/Lesion type: [place] artery [place] vs. transplanted heart: [place] heart Associated angina: without angina Qualified Code(s): I25.10 - Atherosclerotic heart disease of [place] coronary artery without angina pectoris (6) Chronic anemia Code(s): D64.9 - ANEMIA, UNSPECIFIED Status: Chronic Comment: due to renal disease, mild (7) Sleep apnea Code(s): G47.30 - SLEEP APNEA, UNSPECIFIED Status: Chronic (8) Tobacco use Code(s): Z72.0 - TOBACCO USE Status: Chronic (9) Nausea & vomiting Code(s): R11.2 - NAUSEA WITH VOMITING, UNSPECIFIED Status: Acute Comment: not certain if this is psychogenic or not, abdominal exam is completely benign, will try a dose of Reglan, want to avoid narcotic pain medications or sedative medication - Plan cont current plan of care, continue antibiotics, PT/OT * . - Discharge Day Encounter end time: 13:45
[2019-05-03] MEDS: Famotidine 20 MG TAB PO SCH (08:41)
[2019-05-03] MEDS: predniSONE 5 MG TAB PO SCH (08:41)
[2019-05-03] MEDS: Heparin 5,000 UNITS/ML VIAL SC SCH ×3 (08:41→22:05)
[2019-05-03] MEDS: PARoxetine 20 MG TAB PO SCH (08:41)
[2019-05-03] MEDS: Tacrolimus 1 MG CAP PO SCH ×2 (08:41→22:04)
[2019-05-03] MEDS: Gabapentin 100 MG CAP PO SCH ×2 (08:41→22:04)
[2019-05-03] MEDS: Ferrous Sulfate 325 MG TAB PO SCH ×2 (08:42→17:49)
[2019-05-03] MEDS: Calcitriol 0.25 MCG CAP PO SCH (08:42)
[2019-05-03] MEDS: ALPRAZolam 0.5 MG TAB PO SCH ×2 (08:42→22:04)
[2019-05-03] MEDS: rOPINIRole HCl 0.25 MG TAB PO SCH ×3 (08:55→22:03)
--- NOTE | 2019-05-03 09:32 | PRG ---
DATE OF SERVICE: 05/03/2019 SUBJECTIVE: Ms. Park is a 63-year-old white female with known history of ESRD and currently on maintenance peritoneal dialysis. Recently, she had an episode of peritonitis and was treated with antibiotics. She is now resumed back on the IV ceftriaxone. In addition, she was admitted due to mental status change. This is most likely secondary to the side effects of her drugs. Drug adjustment has been made. Complaining of restless leg today. No complaints of chest pain or shortness of breath. OBJECTIVE: VITAL SIGNS: Blood pressure 203/82 - before BP medications, heart rate 79, respiratory rate 20, temperature 97.9, and pulse ox 97%. GENERAL: Noted to be awake, alert, supine, comfortable, not in distress. SKIN: Adequate turgor. HEENT: She has pinkish conjunctivae. Anicteric sclerae. No neck mass. No carotid bruits. No JVD. CHEST: No deformities. LUNGS: Clear breath sounds. HEART: Normal sinus rhythm. No murmurs, gallops, or rubs. ABDOMEN: Globular, soft, nontender. No masses. EXTREMITIES: No edema. No deformities. MEDICATIONS: Medications of May 03, 2019, reviewed. LABORATORY DATA: Laboratories of May 03, 2019, white count 8 and hemoglobin 11.1. Sodium 138, potassium 2.5, chloride 101, carbon dioxide 25, BUN 31, creatinine 5.03, glucose 97, and calcium 8.6. ASSESSMENT AND PLAN: 1. Hypokalemia. K-Dur 40 mEq one tab given now. Recheck basic metabolic in a.m. again. 2. End-stage renal disease, stable. Continue current CCPD regimen. Fluid removal only as tolerated. 3. Peritonitis. Continuing IV antibiotics. 4. Mental status change - much improved with adjustment of her medications. 5. Restless legs syndrome. We have resumed the Requip at 0.25 mg p.o. t.i.d. 6. Status post failed renal transplant - mycophenolate has been discontinued. In the future, we will taper off Prograf. Job ID: [id number]
[2019-05-03 10:14] LABS: Vancomycin, Random 9.2 ug/mL (See Comment)
[2019-05-03] MEDS: hydrALAZINE 20 MG/ML VIAL SLOW IVP PRN ×2 (12:40→18:44)
[2019-05-03] MEDS: hydrALAZINE 25 MG TAB PO SCH ×2 (15:09→22:04)
[2019-05-03] MEDS: Metoclopramide HCl 10 MG/2 ML VIAL IVP PRN (15:13)
[2019-05-03 15:51] LABS: ALT (SGPT) 11 U/L (8-55); AST (SGOT) 17 U/L (5-34); Alkaline Phosphatase 77 U/L (40-150); Anion Gap 15 mmol/L (10-20); BUN (Urea Nitrogen) 30 mg/dL (9.8-20.1); Bilirubin, Total 0.3 mg/dL (0.2-1.2); Calc. Creatinine Clearance 11 mL/min (70-130); Calcium 8.7 mg/dL (7.8-10.44); Carbon Dioxide 21 mmol/L (23-31); Chloride 104 mmol/L (98-107); Estimated GFR-MDRD 9; Globulin 2.2 g/dL (2.4-3.5); Glucose 122 mg/dL (80-115); Potassium 3.6 mmol/L (3.5-5.1); Protein, Total 5.2 g/dL (6.0-8.3); Sodium 136 mmol/L (136-145)
[2019-05-03] MEDS: tiZANidine HCl 4 MG TAB PO SCH (22:05)
[2019-05-03] MEDS: Ondansetron ODT 4 MG TAB PO PRN (22:11)
[2019-05-04] MEDS: Metoclopramide HCl 10 MG/2 ML VIAL IVP PRN ×2 (02:38→08:39)
[2019-05-04] MEDS: Ondansetron PF 4 MG/2 ML Vial IVP PRN ×2 (04:45→11:35)
[2019-05-04] MEDS: traMADol HCl 50 MG TAB PO PRN ×2 (04:45→11:34)
--- NOTE | 2019-05-04 07:35 | PDOC.PN ---
- Subjective Encounter Start Date: 05/04/19 Encounter Start Time: 09:50 Subjective: Patient with persistent nausea today, controlled with Zofran, BP improved -: with hydralazine. Per patient has nause and HTN every time -: she is hospitalized and can't smoke, resolves at home. - Objective Resuscitation Status - Order Detail: 05/01/19 21:47 Resuscitation Status Routine Resuscitation Status: FULL: Full Resuscitation MAR Reviewed: Yes Vital Signs & Weight: Vital Signs (12 hours) Temp Pulse Resp BP Pulse Ox 05/04/19 03:58 98.9 F 91 17 119/62 96 05/03/19 23:31 73 132/61 05/03/19 21:55 97.8 F 87 20 173/77 H 96 Weight Weight 133 lb 1 oz Result Diagrams: 05/03/19 05:44 05/03/19 15:23 Phys Exam - Physical Examination Constitutional: NAD HEENT: moist MMs Respiratory: no wheezing, no rales, no rhonchi Cardiovascular: RRR Gastrointestinal: soft, non-tender, positive bowel sounds Musculoskeletal: no edema Neurological: non-focal, moves all 4 limbs Psychiatric: normal affect, A&O x 3 Dx/Plan (1) Acute metabolic encephalopathy Code(s): G93.41 - METABOLIC ENCEPHALOPATHY Status: Acute Comment: uncertain eitiology, concern in ER for infection due to recent peritonitis currently on suppressive Levoquin, however no peritoneal fluid analysis was done this visit, no leukocytosis in blood, no fever, no vial sign abnormalities, and blood cultures so far are negative. Currently on Rocephin and Vancomycin since 2018. Dr. Julio consulted. He believes this is due to recurrent overuse of sedating medications at home. Will wean back sedating medications. Can d/c home back on Levaquin suppression. (2) ESRD on peritoneal dialysis Code(s): N18.6 - END STAGE RENAL DISEASE; Z99.2 - DEPENDENCE ON RENAL DIALYSIS Status: Chronic (3) Hypokalemia Code(s): E87.6 - HYPOKALEMIA Status: Resolved Comment: recurrent (4) COPD (chronic obstructive pulmonary disease) Status: Chronic Qualifiers: COPD type: chronic bronchitis (5) CAD (coronary artery disease) Code(s): I25.10 - ATHSCL HEART DISEASE OF [place] CORONARY ARTERY W/O ANG PCTRS Status: Chronic Qualifiers: Coronary Disease-Associated Artery/Lesion type: [place] artery [place] vs. transplanted heart: [place] heart Associated angina: without angina Qualified Code(s): I25.10 - Atherosclerotic heart disease of [place] coronary artery without angina pectoris (6) Chronic anemia Code(s): D64.9 - ANEMIA, UNSPECIFIED Status: Chronic Comment: due to renal disease, mild (7) Sleep apnea Code(s): G47.30 - SLEEP APNEA, UNSPECIFIED Status: Chronic (8) Tobacco use Code(s): Z72.0 - TOBACCO USE Status: Chronic (9) Nausea & vomiting Code(s): R11.2 - NAUSEA WITH VOMITING, UNSPECIFIED Status: Acute Comment: not certain if this is psychogenic or not, abdominal exam is completely benign, will try a dose of Reglan, want to avoid narcotic pain medications or sedative medication (10) Hypertension Code(s): I10 - ESSENTIAL (PRIMARY) HYPERTENSION Status: Chronic Qualifiers: Hypertension type: essential hypertension Qualified Code(s): I10 - Essential (primary) hypertension Comment: severe elevations yesterday, improved with hydralazine - Plan cont current plan of care, continue antibiotics, PT/OT discussed with Dr. Julio and patient cleared to d/c home, decreased dose of -: Gabapentin. manages sedation meds to make sure she doesn't -: overdose. * . - Discharge Day Encounter end time: 10:20
[2019-05-04] MEDS: Tacrolimus 1 MG CAP PO SCH (08:41)
[2019-05-04] MEDS: Gabapentin 100 MG CAP PO SCH (08:42)
[2019-05-04] MEDS: predniSONE 5 MG TAB PO SCH (08:42)
[2019-05-04] MEDS: rOPINIRole HCl 0.25 MG TAB PO SCH (08:42)
[2019-05-04] MEDS: ALPRAZolam 0.5 MG TAB PO SCH (08:42)
[2019-05-04] MEDS: hydrALAZINE 25 MG TAB PO SCH (08:42)
[2019-05-04] MEDS: Famotidine 20 MG TAB PO SCH (08:42)
[2019-05-04] MEDS: Calcitriol 0.25 MCG CAP PO SCH (08:42)
[2019-05-04] MEDS: Ferrous Sulfate 325 MG TAB PO SCH (08:43)
[2019-05-04] MEDS: PARoxetine 20 MG TAB PO SCH (08:43)
[2019-05-04] MEDS: Heparin 5,000 UNITS/ML VIAL SC SCH (08:43)
[2019-05-04] MEDS ORDERED: tiZANidine HCl 4 MG TAB PO SCH ×2 (11:15→21:00)
[2019-05-04] MEDS: cloNIDine 0.1 MG TAB PO PRN (11:38)
[2019-05-04 12:00] VITALS: TEMP 98.5
[2019-05-04 12:43] VITALS: BP 113/56
--- NOTE | 2019-05-04 12:52 | PRG ---
DATE OF SERVICE: 05/04/2019 SUBJECTIVE: Ms. Park is a 63-year-old white female with ESRD and currently on maintenance peritoneal dialysis. She was admitted for mental status change secondary to side effects of her drugs. She was also recently diagnosed with peritonitis. Currently, she is on IV antibiotics. She is doing well. Complaining of some nausea today. In addition, she has been having restless legs syndrome and at that time, we resumed her Requip at the smaller dose of 0.25 mg p.o. b.i.d. No other complaints. No chest pain or shortness of breath. OBJECTIVE: VITAL SIGNS: Blood pressure 167/71, heart rate 80, respiratory rate 16, temperature 97.7, pulse ox 97%. GENERAL: Noted to be awake, not in overt distress. SKIN: Adequate turgor. HEENT: She has pinkish conjunctivae. Anicteric sclerae. NECK: No neck mass. No carotid bruits. No JVD. CHEST: No deformities. LUNGS: Clear breath sounds. HEART: Normal sinus rhythm. No murmurs. No gallops. No rubs. ABDOMEN: Globular, soft, nontender. No masses. Positive for PD catheter. EXTREMITIES: No edema. NEUROLOGICAL: Positive for leg tremors, hand tremors. MEDICATIONS: Medications of May 04, 2019, was reviewed. LABORATORY DATA: Laboratories of May 03, 2019, white count 8, hemoglobin 11.1. Sodium 136, potassium 3.6, chloride 104, carbon dioxide 21, BUN 30, creatinine 5.09, glucose 122. AST 17, ALT 11, albumin 3.0. BNP 1081. ASSESSMENT AND PLAN: 1. End-stage renal disease, stable, tolerating current CCPD regimen. We removed about 1.5 L of fluid with ultrafiltration with the peritoneal dialysis. 2. Hypokalemia, much improved. 3. Restless legs syndrome, currently on Requip 0.25 mg p.o. t.i.d. 4. Status post failed renal transplant. I discontinued the CellCept. We will continue to taper Prograf in the near future and eventually weaning her off. 5. Mental status change-much improved. 6. Recheck basic metabolic profile and CBC in a.m. ADDENDUM: Peritonitis, doing well. Consider converting to Levaquin 250 mg tablet every other day upon discharge. Job ID: [id number]
--- NOTE | 2019-05-05 05:37 | DIS ---
DATE OF ADMISSION: 05/01/2019 DATE OF DISCHARGE: 05/04/2019 PRIMARY CARE PHYSICIAN: Audi Donnelly MD PRIMARY CASH SPECIALIST: Abdirashid Anne MD REASON FOR ADMISSION: Confusion and sedation, concern for a possible infection. DIAGNOSES AT DISCHARGE: 1. Acute metabolic encephalopathy secondary to too much sedating medication, resolved. 2. History of peritonitis, on suppressive Levaquin therapy. 3. End-stage renal disease, on peritoneal dialysis. 4. Hypokalemia, resolved. 5. Chronic obstructive pulmonary disease. 6. Coronary artery disease. 7. Chronic anemia. 8. Sleep apnea. 9. Tobacco abuse. 10. Nausea and vomiting and elevated blood pressures from tobacco withdrawal. 11. Hypertension. 12. Chronic pain. PROCEDURES: 1. CT of the abdomen and pelvis without contrast showing generalized abdominopelvic ascites with indwelling peritoneal dialysis catheter and wall thickening of the urinary bladder. No acute tear or infectious changes. 2. CT of the brain showing mild enlargement of the ventricular system, out of proportion in the size of the cerebral sulci. This is chronic, but is concerning for the possibility of normal-pressure hydrocephalus. CONSULTATIONS: Nephrology, Dr. Julio. SUMMARY OF HOSPITAL COURSE: This is a 63-year-old white female with end-stage renal disease, status post failed transplant, on peritoneal dialysis. She was admitted for mental status changes and confusion. Per Dr. Julio, this has happened multiple times in the past and has been thought to be related to her overuse of her sedatives. Her now actually keeps her sedatives in a safe. He had been keeping an eye on her gabapentin, however, she had been taking gabapentin along with Xanax and tizanidine at same time. The patient had been recently diagnosed with peritonitis, treated with vancomycin and Levaquin, now on Levaquin 250 mg every other day. The patient was admitted to the hospital. Blood cultures were drawn. She was started on broad-spectrum antibiotics. She cleared immediately. Never had an elevated white blood cell count, never had guarding or peritoneal signs on her abdominal exam and eventually was transitioned back to just her oral Levaquin. Dr. Julio was consulted. He did recommend decreasing her gabapentin to 100 mg 3 times a day. The patient starting the 2nd hospital day, started having severe nausea and vomiting along with severe hypertensive episodes in the 200 systolic. This was controlled with Zofran, Reglan, and hydralazine. On speaking with the patient and her the day of discharge, she actually gets this almost every time she is hospitalized, about a day after, she is not able to smoke anymore. She will start having this worsened nausea and vomiting and hypertension. I also discussed with Dr. Julio. He states she has had chronic nausea, vomiting problems controlled with Zofran. The day of discharge, the patient was tolerating oral food. She was not having any severe range of blood pressures. She was not having any fever and she was cleared from Dr. Julio's standpoint to go home. I do not see any evidence of infection at this point, seems to be all related to her medications, which we have adjusted and then continue her on her Levaquin at discharge. DISCHARGE MANAGEMENT: 1. Location: Discharged home. 2. Followup: Follow up with Dr. Julio within the next week. 3. Activity: As tolerated. 4. Diet: Renal diet. Continue her peritoneal dialysis at home. DISCHARGE MEDICATIONS: 1. Gabapentin decreased to 100 mg twice a day, 60 caps dispensed. 2. Hydralazine 25 mg 3 times a day, 90 tablets dispensed. 3. Levofloxacin 250 mg every other day, 15 tablets dispensed. 4. Zofran 4 mg every 6 hours as needed for nausea and vomiting, 20 tabs dispensed. 5. Requip 0.25 mg 3 times a day, 90 tablets dispensed. 6. Continue alprazolam 1 mg twice a day. 7. Calcitriol 0.25 mcg daily. 8. Clonidine 0.1 mg as needed. 9. Ferrous sulfate 325 mg twice a day. 10. Loperamide as needed. 11. Paroxetine 40 mg daily. 12. Prednisone 7.5 mg daily. 13. Prograf 2 mg twice a day. 14. Tizanidine 4 mg twice a day. 15. CellCept 500 mg twice a day. Arranging the details of this discharge took 32 minutes. Job ID: [id number]
== END 2019-05-04 13:12 | disposition home or self-care (01) | DRG 371 ==
LOC: SCSER 14:57 → 2NO 18:45
PROVIDERS: ADMIT Internal Medicine; ATTEND Internal Medicine
DX: K65.9 Peritonitis, unspecified (principal); N18.6 End stage renal disease; G92 Toxic encephalopathy; I13.2 Hypertensive heart and chronic kidney disease with heart failure and with stage 5 chronic kidney disease, or end stage renal disease; N25.81 Secondary hyperparathyroidism of renal origin; Z94.0 Kidney transplant status; E87.6 Hypokalemia; E78.5 Hyperlipidemia, unspecified; I50.9 Heart failure, unspecified; J44.9 Chronic obstructive pulmonary disease, unspecified; F17.210 Nicotine dependence, cigarettes, uncomplicated; I25.10 Atherosclerotic heart disease of native coronary artery without angina pectoris; D64.9 Anemia, unspecified; G47.30 Sleep apnea, unspecified; F41.9 Anxiety disorder, unspecified; G25.81 Restless legs syndrome; T50.905A Adverse effect of unspecified drugs, medicaments and biological substances, initial encounter; Z99.2 Dependence on renal dialysis; Z90.49 Acquired absence of other specified parts of digestive tract; Z91.040 Latex allergy status; Z79.899 Other long term (current) drug therapy
CPT/HCPCS: 36415; 70450; 71045; 74176; 80048; 80053; 80061; 80202; 81003; 81015; 82550; 82553; 83605; 83690; 83880; 84443; 84484; 85025; 87040; 90945; 93005; 96365; 96367; G0257; J0360; J0696; J1644; J2405; J2765; J3370; J3490; J7050; J7507; J7512; J7517; Q0162

== ENCOUNTER 2019-08-18 15:40 | Inpatient (IN) | payer MEDICARE ==
[2019-08-18 18:59] LABS: #Basophils 0.1 thou/uL (0.0-0.2); #Eosinphils 0.1 thou/uL (0.0-0.7); #Lymphocytes 1.5 thou/uL (1.20-3.40); #Monocytes 0.9 thou/uL (0.11-0.59); #Neutrophils 9.4 thou/uL (1.40-6.50); %Basophils 0.5 % (0.0-1.0); %Eosinophils 0.5 % (0.0-10.0); %Lymphocytes 12.5 % (21.0-51.0); %Monocytes 7.3 % (0.0-10.0); %Neutrophils 79.2 % (42.0-75.0); Hemoglobin 15.8 g/dL (12.0-16.0); Mean Corpuscular HGB CONC 33.3 g/dL (32.0-36.0); Mean Corpuscular Hemoglobin 28.1 pg (27.0-31.0); Mean Corpuscular Volume 84.4 fL (78.0-98.0); Mean Platelet Volume 7.5 fL (7.4-10.4); Platelet Count 202 thou/uL (130-400); RBC Distribution Width 13.6 % (11.5-14.5); Red Blood Cell (RBC) Count 5.61 mill/uL (4.20-5.40); White Blood Cell (WBC) Count 11.9 thou/uL (4.8-10.8)
[2019-08-18 19:22] LABS: ALT (SGPT) 16 U/L (8-55); AST (SGOT) 26 U/L (5-34); Albumin 3.6 g/dL (3.4-4.8); Alkaline Phosphatase 46 U/L (40-150); Anion Gap 14 mmol/L (10-20); BUN (Urea Nitrogen) 26 mg/dL (9.8-20.1); Bilirubin, Total 0.9 mg/dL (0.2-1.2); Calc. Creatinine Clearance 0 mL/min (70-130); Calcium 10.8 mg/dL (7.8-10.44); Carbon Dioxide 27 mmol/L (23-31); Chloride 94 mmol/L (98-107); Estimated GFR-MDRD 10; Globulin 2.5 g/dL (2.4-3.5); Glucose 82 mg/dL (80-115); Protein, Total 6.1 g/dL (6.0-8.3); Sodium 132 mmol/L (136-145)
[2019-08-18 19:30] LABS: Potassium 2.6 mmol/L (3.5-5.1)
[2019-08-18] MEDS ORDERED: Ondansetron PF 4 MG/2 ML Vial ONE (19:57)
[2019-08-18] MEDS ORDERED: Potassium Chloride 20 MEQ TAB ONE (22:51)
[2019-08-18] MEDS ORDERED: Promethazine HCl 25 MG/ML VIAL ONE (22:51)
[2019-08-18 22:58] LABS: Bilirubin Negative (Negative); Blood, Urine 1+ (Negative); Clarity Clear (Clear); Glucose, Urine (Dipstick) Normal (Negative); Leukocyte Negative Leu/uL (Negative); Nitrite Negative (Negative); Protein, Urine (Dipstick) 100 mg/dL (Neg-Trace); RBC/HPF 0-3 HPF (0-3); Squamous Epithelial 0-3 HPF (0-3); Urobilinogen Normal mg/dL (Less than 2); WBC/HPF 0-3 HPF (0-3)
[2019-08-18 23:08] LABS: Bacteria/HPF None Seen HPF (None Seen)
[2019-08-18] MEDS ORDERED: Gentamicin 80 MG/2 ML VIAL ONE (23:51)
[2019-08-19] MEDS ORDERED: Acetaminophen 325 MG TAB PO PRN (00:02)
[2019-08-19] MEDS ORDERED: Ondansetron PF 4 MG/2 ML Vial IVP PRN (00:02)
[2019-08-19] MEDS ORDERED: Acetaminophen 650 MG Suppository PR PRN (00:02)
[2019-08-19] MEDS ORDERED: Magnesium 2 GM/50 ML 1 GM in Premix Bag 1 BAG IVPB SCH (00:15)
[2019-08-19 00:58] VITALS: BMI 22.1
[2019-08-19] MEDS ORDERED: Vancomycin HCl 750 MG in Sodium Chloride 0.9% 250 ML 250 ML IVPB SCH (01:15)
[2019-08-19] MEDS ORDERED: Vancomycin HCl 500 MG in Sodium Chloride 0.9% 100 ML IVPB SCH (01:15)
[2019-08-19] MEDS ORDERED: HOLD VANCOMYCIN FOR LEVEL >20 FS SCH (01:15)
[2019-08-19] MEDS ORDERED: Vancomycin HCl 250 MG in Sodium Chloride 0.9% 100 ML IVPB SCH (01:15)
[2019-08-19] MEDS ORDERED: Vancomycin HCl 1 GM in Premix Bag 1 BAG IVPB SCH (01:15)
[2019-08-19 01:30] LABS: Lactic Acid 0.7 mmol/L (0.5-2.2)
[2019-08-19] MEDS ORDERED: Ondansetron ODT 4 MG TAB PO PRN (01:38)
[2019-08-19] MEDS ORDERED: rOPINIRole HCl 0.5 MG TAB PO SCH (02:15)
[2019-08-19] MEDS ORDERED: traZODone HCl 50 MG TAB PO SCH (02:15)
--- NOTE | 2019-08-19 02:20 | HP ---
TIME OF EVALUATION: 12:10 a.m. PRIMARY CARE DOCTOR: Dr. Audi Donnelly. CODE STATUS: Full code. CHIEF COMPLAINT: Abdominal pain. HISTORY OF PRESENT ILLNESS: This is a 63-year-old female patient with past medical history of peritoneal dialysis, end-stage renal disease, status post kidney transplant, who came to the hospital after having severe gradually worsening diffuse abdominal pain with no clear triggers, no alleviating factors. The patient has a peritoneal dialysis catheter in place, so there was concern for possible secondary peritonitis. REVIEW OF SYSTEM: All other systems were reviewed and negative except for the findings mentioned above. PAST MEDICAL HISTORY: The findings mentioned in the HPI and also coronary artery disease with acute UT in 2005, CHF, and hypertension. SURGICAL HISTORY: Left kidney transplant, cardiac cath, cholecystectomy, hysterectomy, left leg surgery, back surgery. PSYCHIATRIC HISTORY: Dementia. SOCIAL HISTORY: No alcohol, no drugs, no smoking history. The patient quit smoking in August 2018. KNOWN ALLERGIES: Latex, natural rubber, promethazine. REPORTED MEDICATIONS: 1. Sodium bicarb. 2. Alprazolam. 3. Prednisone. 4. Tacrolimus. 5. Gabapentin. 6. Loperamide. 7. Tizanidine. 8. Trazodone. 9. Clonidine. 10. Ferrous sulfate. 11. Ondansetron. 12. Paroxetine. 13. Clonidine. 14. Furosemide. 15. Calcitriol. 16. Nifedipine. 17. Folic acid. PHYSICAL EXAMINATION: VITAL SIGNS: On presentation; blood pressure 95/86, with heart rate 82, respiratory rate was 20, temperature 99.1, oxygen saturation 99% on room air. GENERAL APPEARANCE: The patient is alert, oriented, in no acute distress. HEENT: Eyes; normal conjunctivae. Moist oral mucosa. Anicteric. No JVD. RESPIRATORY: Bilateral air entry. No rales. No wheezes. Symmetric expansion. CARDIOVASCULAR: Normal rate. Regular rhythm. No murmurs. No gallops. No edema. ABDOMEN: Soft. Patient has abdominal tenderness. Bowel sounds are normal. MUSCULOSKELETAL: Baseline range of motion and strength. SKIN: Warm, intact. No pallor. No rash. No redness. Capillary refill seems to be intact. NEURO: No evidence of any new focal weakness. Cranial nerves seems to be intact. PSYCH: The patient is in good mood. No anxiety. Optimal judgment. DIAGNOSTIC STUDIES: EKG was done and showed normal sinus rhythm with a rate of 73. No evidence of acute ischemic event. LABORATORY DATA: Hematology; white count 11.9, hemoglobin 15.8, MCV 84.4, platelet count 202. Sodium 132, potassium 2.6, chloride 94, carbon dioxide 27, anion gap 14, BUN 26, creatinine 4.41, GFR 10, glucose 82, calcium 10.8, magnesium 1.3. LFTs were negative. Urine was done and was negative. ASSESSMENT AND PLAN: The patient will be placed in the hospital with the following medical problems. 1. Possible secondary peritonitis that might be due to overt infection of the peritoneal catheter. The patient has been started on antibiotics. We will follow cultures. We will adjust treatment as per sensitivity. 2. Hyponatremia, sodium 132, this is mild. No need for any further intervention at this point. We will monitor. 3. Hypokalemia that is moderate potassium 2.6. We will replace electrolytes as needed. 4. End-stage renal disease. Will need peritoneal dialysis. We will consult Nephrology. 5. Hypomagnesemia, magnesium 1.3. We will replace electrolytes as needed, has been replaced already. 6. Uncontrolled hypertension. Reconcile home medications and adjust treatment as needed. 7. History of kidney transplant that is failing now. Reconcile home medications. 8. Deep vein thrombosis prophylaxis. Job ID: [id number]
[2019-08-19] MEDS: Acetaminophen/Codeine 30-300mg Tablet PO PRN (02:25)
[2019-08-19] MEDS: Ondansetron ODT 4 MG TAB PO PRN ×3 (02:27→18:17)
[2019-08-19 05:31] LABS: #Eosinphils 0.1 thou/uL (0.0-0.7); #Lymphocytes 1.8 thou/uL (1.20-3.40); #Monocytes 1.1 thou/uL (0.11-0.59); #Neutrophils 6.9 thou/uL (1.40-6.50); %Basophils 0.3 % (0.0-1.0); %Eosinophils 1.5 % (0.0-10.0); %Lymphocytes 18.3 % (21.0-51.0); %Monocytes 10.6 % (0.0-10.0); %Neutrophils 69.4 % (42.0-75.0); Hemoglobin 13.5 g/dL (12.0-16.0); Mean Corpuscular HGB CONC 33.1 g/dL (32.0-36.0); Mean Corpuscular Hemoglobin 28.5 pg (27.0-31.0); Mean Platelet Volume 7.6 fL (7.4-10.4); Platelet Count 181 thou/uL (130-400); RBC Distribution Width 13.6 % (11.5-14.5); Red Blood Cell (RBC) Count 4.75 mill/uL (4.20-5.40)
[2019-08-19 06:00] LABS: Anion Gap 11 mmol/L (10-20); BUN (Urea Nitrogen) 27 mg/dL (9.8-20.1); Calc. Creatinine Clearance 11 mL/min (70-130); Calcium 8.9 mg/dL (7.8-10.44); Carbon Dioxide 26 mmol/L (23-31); Chloride 102 mmol/L (98-107); Estimated GFR-MDRD 10; Glucose 86 mg/dL (80-115); Potassium 3.3 mmol/L (3.5-5.1); Sodium 136 mmol/L (136-145)
[2019-08-19] MEDS: Ferrous Sulfate 325 MG TAB PO SCH ×2 (08:17→15:56)
[2019-08-19] MEDS: Calcitriol 0.25 MCG CAP PO SCH (08:18)
[2019-08-19] MEDS: ALPRAZolam 1 MG TAB PO SCH ×2 (08:18→21:27)
[2019-08-19] MEDS: cloNIDine 0.1 MG TAB PO SCH ×2 (08:19→21:24)
[2019-08-19] MEDS: Fluconazole 100 MG TAB PO SCH (08:19)
[2019-08-19] MEDS: Donepezil HCl 5 MG TAB PO SCH (08:19)
[2019-08-19] MEDS: PARoxetine 20 MG TAB PO SCH (08:20)
[2019-08-19] MEDS: Gabapentin 300 MG CAP PO SCH ×2 (08:20→21:26)
[2019-08-19] MEDS: predniSONE 5 MG TAB PO SCH ×2 (08:21→21:26)
[2019-08-19] MEDS: Tacrolimus 1 MG CAP PO SCH ×2 (08:21→21:26)
[2019-08-19] MEDS: Heparin 5,000 UNITS/ML VIAL SC SCH ×3 (08:24→21:25)
[2019-08-19] MEDS: tiZANidine HCl 4 MG TAB PO PRN (08:27)
[2019-08-19] MEDS ORDERED: Amlodipine 10 MG TAB PO SCH (09:00)
[2019-08-19] MEDS ORDERED: Mycophenolate 250 MG CAP PO SCH (09:00)
--- NOTE | 2019-08-19 11:34 | CON ---
DATE OF CONSULTATION: SERVICE: Renal Medicine. HISTORY OF PRESENT ILLNESS: Ms. Park is a 63-year-old white female with ESRD, status post failed renal transplant, and admitted for abdominal pain and nausea and vomiting. She has been treated for several weeks with intraperitoneal antibiotics. The infection remains unresolved. Several days ago, the PD fluid was still noted to be cloudy. We repeated the PD fluid culture and it was negative. It may have been negative since the patient has been on intraperitoneal antibiotics, however, cell count was elevated. She was also prophylactically given antifungal treatment. My bias is to have that PD catheter pulled out and then place her on a backup hemodialysis. I also did mention to the patient to consider prison placement. Her may have a hard time taking care of her at the present time. REVIEW OF SYSTEMS: Positive for decreased appetite. Positive for weight loss. Positive for nausea. Positive for abdominal pain. Denies any fever. No hematochezia. No melena. No hematemesis. No headache. No syncopal episode. MEDICATIONS: 1. Xanax 1 mg p.o. b.i.d. 2. Amlodipine 10 mg tablet once a day. 3. Calcitriol 0.5 mcg daily. 4. Clonidine 0.1 mg b.i.d. 5. Aricept 5 mg daily. 6. Ferrous sulfate 325 mg p.o. b.i.d. 7. Fluconazole 100 mg daily. 8. Gabapentin 300 mg p.o. b.i.d. 9. Heparin 5000 units subcu t.i.d. 10. Status post magnesium. 11. Mycophenolate 500 mg p.o. b.i.d. 12. Zofran p.r.n. 13. Ropinirole 0.5 mg at bedtime. 14. Tizanidine 4 mg p.o. b.i.d. 15. Trazodone 100 mg p.o. at bedtime. 16. Vancomycin. 17. Sliding scale. 18. Tacrolimus 1 mg p.o. b.i.d. PAST MEDICAL HISTORY: 1. End-stage renal disease, currently on CCPD regimen. 2. Status post failed renal transplant, originally ESRD is from [facility]. 3. Chronic anemia. 4. Recent diagnosis of peritonitis. 5. Hypertension. 6. Secondary hyperparathyroidism. 7. Insomnia. 8. Chronic pain. 9. History of noncompliance. 10. Status post UTI. 11. History of ? of gastroparesis. 12. Coronary artery disease, status post non-Q-wave SD. 13. Status post pancreatitis. 14. Restless legs syndrome. PAST SURGICAL HISTORY: Status post PD catheter placement, status post AV fistula placement, status post cuffed hemodialysis catheter placement, status post vaginal hysterectomy, status post surgery of the right kidney, status post cardiac cath, status post upper GI endoscopy with ERCP, status post failed renal transplant, and status post colonoscopy. 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 Education; high school/nursing school. Status post blood transfusion. No alcohol intake. No IV drug abuse. She is . No children. Lives in [place]. FAMILY HISTORY: No family history of ESRD. ALLERGIES: LATEX AND ADVERSE REACTION TO PHENERGAN. TRAUMA: Status post fall with left tibia and fibula comminuted fracture. IMMUNIZATIONS: Up-to-date. HOSPITALIZATIONS: Please see past medical history. PHYSICAL EXAMINATION: VITAL SIGNS: Blood pressure is 189/88, heart rate 77, respiratory rate 16, temperature 97.9, and pulse ox 92%. GENERAL: Awake, alert, comfortable, not in distress. SKIN: Adequate turgor. HEENT: She has pinkish conjunctivae. Anicteric sclerae. NECK: No neck mass. No carotid bruits. No JVD. CHEST: No deformities. LUNGS: Clear breath sounds. No wheezing. No crackles. HEART: Normal sinus rhythm. No murmurs. No gallops. No rubs. ABDOMEN: Globular, soft, and nontender. No masses. Positive for PD catheter. EXTREMITIES: No edema. No deformities. NEUROLOGICAL: Awake and oriented to 3 spheres. Moving all extremities. No tremors. No asterixis. No ataxia. LABORATORY DATA: Laboratories of August 19, 2019; sodium 136, potassium 3.3, chloride 102, carbon dioxide 26, BUN 27, creatinine 4.55, glucose 86, and calcium 8.9. ASSESSMENT AND PLAN: 1. Peritonitis - this is a gram-negative aurora - currently receiving intraperitoneal cephalosporin. My bias is to maintain her on IV ceftazidime/ceftriaxone 1 g IV daily. Consider removing PD catheter. We will discuss it with the . I did discuss it with the patient. She seems amenable to this. We will finalize the plan after I speak with the . If they agreed, the patient will be placed on backup hemodialysis. We will have surgery move the peritoneal dialysis catheter and have a cuffed hemodialysis catheter placed. 2. Failure to thrive - I feel that home situation is not conducive for a good recovery with this patient. I did discuss about placing her in a alf facility. 3. End-stage renal disease. For the moment, continue current CCPD regimen. We will continue 1.5% PD solution with this patient with 2 L fill volume. 4. Hypertension. Continue current BP medications. 5. Status post failed renal transplant. We will discontinue mycophenolate. In addition, we will start tapering tacrolimus as an outpatient. Overall, agree with current management. Job ID: [id number]
[2019-08-19] MEDS: cefTRIAXone\\ROCEPHIN 1 GM in Sodium Chloride 0.9% 100 ML IVPB SCH (11:52)
[2019-08-19 14:32] LABS: Anion Gap 14 mmol/L (10-20); BUN (Urea Nitrogen) 27 mg/dL (9.8-20.1); Calc. Creatinine Clearance 10 mL/min (70-130); Calcium 9.3 mg/dL (7.8-10.44); Carbon Dioxide 24 mmol/L (23-31); Chloride 102 mmol/L (98-107); Estimated GFR-MDRD 9; Glucose 126 mg/dL (80-115); Potassium 4.1 mmol/L (3.5-5.1); Sodium 136 mmol/L (136-145)
--- NOTE | 2019-08-19 15:44 | PDOC.EVN ---
Event Note - Event Note Event Note: Seen and examined. Continue current treatment. recheck labs in the am.
[2019-08-19] MEDS: traZODone HCl 50 MG TAB PO SCH (21:25)
[2019-08-19] MEDS: rOPINIRole HCl 0.5 MG TAB PO SCH (21:27)
[2019-08-20] MEDS: hydrALAZINE 20 MG/ML VIAL SLOW IVP PRN ×2 (01:30→05:46)
[2019-08-20] MEDS: cloNIDine 0.1 MG TAB PO PRN (03:58)
[2019-08-20 05:03] LABS: #Lymphocytes 1.3 thou/uL (1.20-3.40); #Monocytes 0.6 thou/uL (0.11-0.59); #Neutrophils 9.6 thou/uL (1.40-6.50); %Basophils 0.3 % (0.0-1.0); %Eosinophils 0.4 % (0.0-10.0); %Lymphocytes 11.1 % (21.0-51.0); %Monocytes 4.9 % (0.0-10.0); %Neutrophils 83.3 % (42.0-75.0); Hemoglobin 15.3 g/dL (12.0-16.0); Mean Corpuscular HGB CONC 32.6 g/dL (32.0-36.0); Mean Corpuscular Hemoglobin 28.3 pg (27.0-31.0); Mean Corpuscular Volume 86.8 fL (78.0-98.0); Mean Platelet Volume 7.8 fL (7.4-10.4); Platelet Count 187 thou/uL (130-400); RBC Distribution Width 13.9 % (11.5-14.5); Red Blood Cell (RBC) Count 5.41 mill/uL (4.20-5.40); White Blood Cell (WBC) Count 11.5 thou/uL (4.8-10.8)
[2019-08-20 05:32] LABS: Anion Gap 10 mmol/L (10-20); BUN (Urea Nitrogen) 28 mg/dL (9.8-20.1); Calc. Creatinine Clearance 10 mL/min (70-130); Calcium 8.9 mg/dL (7.8-10.44); Carbon Dioxide 27 mmol/L (23-31); Chloride 103 mmol/L (98-107); Estimated GFR-MDRD 10; Glucose 102 mg/dL (80-115); Potassium 3.1 mmol/L (3.5-5.1); Sodium 137 mmol/L (136-145)
[2019-08-20 08:25] LABS: Vancomycin, Random 15.3 ug/mL (See Comment)
[2019-08-20 08:45] LABS: Phosphorus 2.8 mg/dL (2.3-4.7)
[2019-08-20] MEDS: Calcitriol 0.25 MCG CAP PO SCH (08:45)
[2019-08-20] MEDS: cloNIDine 0.1 MG TAB PO SCH ×2 (08:45→20:37)
[2019-08-20] MEDS: Ferrous Sulfate 325 MG TAB PO SCH ×2 (08:45→17:08)
[2019-08-20] MEDS: Donepezil HCl 5 MG TAB PO SCH (08:45)
[2019-08-20] MEDS: Fluconazole 100 MG TAB PO SCH (08:45)
[2019-08-20] MEDS: Gabapentin 300 MG CAP PO SCH ×2 (08:45→20:37)
[2019-08-20] MEDS: Tacrolimus 1 MG CAP PO SCH ×2 (08:46→20:39)
[2019-08-20] MEDS: PARoxetine 20 MG TAB PO SCH (08:46)
[2019-08-20] MEDS: predniSONE 5 MG TAB PO SCH ×2 (08:46→20:39)
[2019-08-20] MEDS: NIFEdipine XL 60 MG TAB PO SCH (08:46)
[2019-08-20] MEDS: Heparin 5,000 UNITS/ML VIAL SC SCH ×3 (08:54→20:38)
--- NOTE | 2019-08-20 08:59 | PDOC.HOSPP ---
- Subjective Encounter Date: 08/20/19 Encounter Time: 08:57 Subjective: 63 y/o female with ESRD s/p failed transplant on PD admitted with abdominal pain concerning for PD associated peritonitis. Start on antibiotics and reports feeling better. [place] Programs Director reported that culture is growing gram negative rods but thos could not be seen in the EMR. Reports generalized weakness. Denied fever, nausea or vomiting. - Objective Vital Signs & Weight: Vital Signs (12 hours) Temp Pulse Resp BP BP Pulse Ox 08/20/19 08:46 78 176/75 H 08/20/19 08:45 176/75 H 08/20/19 07:42 98.0 F 78 20 176/75 H 94 L 08/20/19 05:46 73 182/84 H 08/20/19 05:21 73 182/84 H 08/20/19 03:58 187/90 H 08/20/19 03:53 98.7 F 74 18 187/90 H 93 L 08/20/19 02:03 192/92 H 08/20/19 01:30 65 211/98 H 08/19/19 23:44 98.4 F 65 18 210/93 H 91 L 08/19/19 21:24 189/88 H Weight Admit Weight 116 lb 14.4 oz Weight 117 lb 11.629 oz Result Diagrams: 08/20/19 04:52 08/20/19 04:52 Hospitalist ROS - Medication Medications: Active Medications Generic Name Dose Route Start Last Admin Trade Name Freq PRN Reason Stop Dose Admin Acetaminophen/Codeine Phosphate 1 tab 08/19/19 01:38 08/19/19 02:25 Tylenol #3 PO 1 tab DAILYPRN PRN Administration Moderate Pain (4-6) Alprazolam 1 mg 08/19/19 09:00 08/19/19 21:27 Xanax PO 1 mg BID RAGHU Administration Calcitriol 0.5 mcg 08/19/19 09:00 08/20/19 08:45 Rocaltrol PO 0.5 mcg DAILY RAGHU Administration Clonidine 0.1 mg 08/19/19 09:00 08/20/19 08:45 Catapres PO 0.1 mg BID RAGHU Administration Clonidine 0.1 mg 08/20/19 03:38 08/20/19 03:58 Catapres PO 0.1 mg Q4H PRN Administration SBP > 160 OR DBP > 100 Donepezil HCl 5 mg 08/19/19 09:00 08/20/19 08:45 Aricept PO 5 mg DAILY RAGHU Administration Ferrous Sulfate 325 mg 08/19/19 08:00 08/20/19 08:45 Feosol PO 325 mg BID-WM RAGHU Administration Fluconazole 100 mg 08/19/19 09:00 08/20/19 08:45 Diflucan PO 100 mg DAILY RAGHU Administration Gabapentin 300 mg 08/19/19 09:00 08/20/19 08:45 Neurontin PO 300 mg BID RAGHU Administration Heparin Sodium (Porcine) 5,000 units 08/19/19 09:00 08/20/19 08:54 Heparin SC 5,000 units TID RAGHU Administration Hydralazine HCl 10 mg 08/20/19 01:12 08/20/19 05:46 Apresoline SLOW IVP 10 mg Q4H PRN Administration SBP > 160 or DBP > 100 Ceftriaxone Sodium 1 gm/ 100 mls @ 200 mls/hr 08/19/19 11:00 08/19/19 11:52 Sodium Chloride IVPB 100 mls 1100 RAGHU Administration Nifedipine 60 mg 08/20/19 09:00 08/20/19 08:46 Procardia Xl PO 60 mg DAILY RAGHU Administration Ondansetron HCl 4 mg 08/19/19 00:02 08/19/19 18:17 Zofran Odt PO 4 mg Q6H PRN Administration Nausea/Vomiting Paroxetine HCl 40 mg 08/19/19 09:00 08/20/19 08:46 Paxil PO 40 mg DAILY RAGHU Administration Prednisone 5 mg 08/19/19 09:00 08/20/19 08:46 Prednisone PO 5 mg BID RAGHU Administration Ropinirole HCl 0.5 mg 08/19/19 21:00 08/19/19 21:27 Requip PO 0.5 mg HS RAGHU Administration Sodium Chloride 10 ml 08/19/19 09:00 08/20/19 08:46 Flush - Normal Saline IVF 10 ml Q12HR RAGHU Administration Tacrolimus 1 mg 08/19/19 09:00 08/20/19 08:46 Prograf PO 1 mg BID RAGHU Administration Tizanidine HCl 4 mg 08/19/19 01:38 08/19/19 08:27 Zanaflex PO 4 mg BID PRN Administration muscle spasms Trazodone HCl 100 mg 08/19/19 21:00 08/19/19 21:25 Desyrel PO 100 mg HS RAGHU Administration - Exam General - other findings: chronically ill looking. Afebrile. Eye: anicteric sclera ENT: normocephalic atraumatic Neck: symmetric Heart: RRR, murmur present Respiratory: no wheezes, no ronchi Respiratory - other findings: fair air entry with some transmitted sound Gastrointestinal: soft, non-distended, normal bowel sounds Gastrointestinal - other findings: mild diffuse tenderness. PD cath noted Extremities: no cyanosis, no clubbing, no edema Neurological: cranial nerve grossly intact, no focal deficits Musculoskeletal: generalized weakness, diffuse muscle atrophy Psychiatric: normal affect, A&O x 3 Hosp A/P (1) Peritonitis associated with peritoneal dialysis Status: Acute (2) COPD (chronic obstructive pulmonary disease) Status: Chronic Qualifiers: COPD type: chronic bronchitis (3) Chronic anemia Code(s): D64.9 - ANEMIA, UNSPECIFIED Status: Chronic (4) ESRD on peritoneal dialysis Code(s): N18.6 - END STAGE RENAL DISEASE; Z99.2 - DEPENDENCE ON RENAL DIALYSIS Status: Chronic (5) Hypertension Code(s): I10 - ESSENTIAL (PRIMARY) HYPERTENSION Status: Chronic Qualifiers: Hypertension type: essential hypertension Qualified Code(s): I10 - Essential (primary) hypertension (6) Hypokalemia Code(s): E87.6 - HYPOKALEMIA Status: Resolved (7) Hypomagnesemia Code(s): E83.42 - HYPOMAGNESEMIA Status: Acute (8) Protein calorie malnutrition Code(s): E46 - UNSPECIFIED PROTEIN-CALORIE MALNUTRITION Status: Acute (9) Physical deconditioning Code(s): R53.81 - OTHER MALAISE Status: Acute (10) Mild protein-calorie malnutrition Code(s): E44.1 - MILD PROTEIN-CALORIE MALNUTRITION Status: Chronic - Plan Substitute amlodipine with nifedipine and titrate dose to get adequate BP control. Continue current antibiotics. Will d/w nephrology. If culture confirmed to be gram negative rods only, we will DC vancomycin. Replete serum potassium and magnesium Consult theatre program director. PT/OT eval and treat Dialysis as per Nephrology
[2019-08-20] MEDS ORDERED: Potassium Chloride 20 MEQ TAB PO SCH (09:00)
[2019-08-20] MEDS ORDERED: Magnesium Oxide 400 MG TAB PO SCH (09:45)
[2019-08-20] MEDS: cefTRIAXone\\ROCEPHIN 1 GM in Sodium Chloride 0.9% 100 ML IVPB SCH (11:46)
[2019-08-20] MEDS: tiZANidine HCl 4 MG TAB PO PRN (11:52)
[2019-08-20] MEDS: ALPRAZolam 1 MG TAB PO SCH ×2 (12:28→20:37)
[2019-08-20] MEDS: Acetaminophen/Codeine 30-300mg Tablet PO PRN (14:34)
[2019-08-20] MEDS ORDERED: Sodium Chloride 0.9% 500 ML IV SCH ×2 (16:45→19:00)
[2019-08-20] MEDS: Ondansetron ODT 4 MG TAB PO PRN (17:44)
[2019-08-20] MEDS: Sodium Chloride 0.9% 1,000 ML IV SCH (20:25)
[2019-08-20] MEDS: Magnesium Oxide 400 MG TAB PO SCH (20:38)
[2019-08-20] MEDS: traZODone HCl 50 MG TAB PO SCH (20:39)
[2019-08-20] MEDS: rOPINIRole HCl 0.5 MG TAB PO SCH (20:40)
[2019-08-20] MEDS ORDERED: Calcium Carbonate 500 MG ChewTAB PO PRN (21:34)
[2019-08-20] MEDS ORDERED: Pantoprazole 40 MG VIAL IVP SCH (21:45)
[2019-08-20] MEDS ORDERED: Calcium Carbonate 500 MG ChewTAB PO SCH (21:45)
[2019-08-20] MEDS: Sodium Chloride 0.9% (PF) 10 ML VIAL FS PRN (21:49)
[2019-08-21 05:57] LABS: Albumin 2.7 g/dL (3.4-4.8); Anion Gap 10 mmol/L (10-20); BUN (Urea Nitrogen) 28 mg/dL (9.8-20.1); BUN/Creatinine Ratio 6.22; Calc. Creatinine Clearance 11 mL/min (70-130); Calcium 8.1 mg/dL (7.8-10.44); Carbon Dioxide 22 mmol/L (23-31); Chloride 106 mmol/L (98-107); Estimated GFR-MDRD 10; Glucose 104 mg/dL (80-115); Magnesium 1.7 mg/dL (1.6-2.6); Phosphorus 2.4 mg/dL (2.3-4.7); Potassium 3.3 mmol/L (3.5-5.1); Sodium 135 mmol/L (136-145)
[2019-08-21] MEDS: Sodium Chloride 0.9% 1,000 ML IV SCH ×2 (08:01→22:17)
[2019-08-21] MEDS: Gabapentin 300 MG CAP PO SCH ×2 (08:50→21:04)
[2019-08-21] MEDS: PARoxetine 20 MG TAB PO SCH (08:51)
[2019-08-21] MEDS: Calcitriol 0.25 MCG CAP PO SCH (08:51)
[2019-08-21] MEDS: Ferrous Sulfate 325 MG TAB PO SCH ×2 (08:52→15:32)
[2019-08-21] MEDS: Fluconazole 100 MG TAB PO SCH (08:52)
[2019-08-21] MEDS: cloNIDine 0.1 MG TAB PO SCH ×2 (08:52→21:03)
[2019-08-21] MEDS: Donepezil HCl 5 MG TAB PO SCH (08:52)
[2019-08-21] MEDS: Tacrolimus 1 MG CAP PO SCH ×2 (08:53→21:04)
[2019-08-21] MEDS: predniSONE 5 MG TAB PO SCH ×2 (08:53→21:04)
[2019-08-21] MEDS: Magnesium Oxide 400 MG TAB PO SCH ×2 (08:53→21:04)
[2019-08-21] MEDS: NIFEdipine XL 60 MG TAB PO SCH (08:54)
[2019-08-21] MEDS: ALPRAZolam 1 MG TAB PO SCH ×2 (08:54→21:02)
[2019-08-21] MEDS: Heparin 5,000 UNITS/ML VIAL SC SCH ×3 (08:54→21:04)
[2019-08-21] MEDS: Sodium Chloride 0.9% (PF) 10 ML VIAL FS PRN (08:55)
[2019-08-21] MEDS: Pantoprazole 40 MG VIAL IVP SCH (08:55)
--- NOTE | 2019-08-21 09:22 | PRG ---
DATE OF SERVICE: 08/21/2019 SUBJECTIVE: Ms. Park is a 63-year-old white female with known history of ESRD, currently on maintenance peritoneal dialysis. The patient's peritonitis remains unresolved. For this reason, we will have the PD catheter pulled out and put her on backup hemodialysis. She is feeling a little better this morning. She had abdominal pain yesterday. No complaints of chest pain or shortness of breath. She was also hypertensive yesterday and was given IV fluid. OBJECTIVE: VITAL SIGNS: Blood pressure is noted at 141/68, heart rate 75, respiratory rate 15, temperature 98.1, and pulse ox 95%. GENERAL: The patient is awake, alert, comfortable, not in overt distress. SKIN: Adequate turgor. HEENT: She has a pinkish conjunctivae. Anicteric sclerae. NECK: No neck mass. No carotid bruits. No JVD. CHEST: No deformities. LUNGS: Clear breath sounds. No wheezing. No crackles. HEART: Normal sinus rhythm. No murmur. No gallops. No rubs. ABDOMEN: Globular, soft, and nontender. No masses. EXTREMITIES: No edema. No deformities. MEDICATIONS: Medications of August 21, 2019, reviewed. LABORATORY DATA: Laboratories of August 20, 2019; white count 11.5, hemoglobin 15.3. Sodium 135, potassium 3.3, chloride 106, carbon dioxide 22, BUN 28, creatinine 4.5, calcium 8.1, and albumin 2.7. ASSESSMENT AND PLAN: 1. End-stage renal disease. Continue current peritoneal dialysis regimen. Tolerated said treatment. Due to the low blood pressure yesterday, a 1.5% peritoneal dialysis solution was done. Due to the persistent peritonitis, the plan is to do a surgical consult to have the peritoneal dialysis catheter removed and place her on backup hemodialysis with a temporary hemodialysis catheter. 2. Hypertension, resolved with IV fluid. 3. Peritonitis. Currently, on IV cephalosporin. Awaiting surgical input. Recheck CBC and basic metabolic panel in a.m. Job ID: [id number]
--- NOTE | 2019-08-21 09:28 | PDOC.HOSPP ---
- Subjective Encounter Date: 08/21/19 Encounter Time: 09:26 Subjective: fever,etc - Objective Vital Signs & Weight: Vital Signs (12 hours) Temp Pulse Resp BP BP Pulse Ox 08/21/19 08:54 75 08/21/19 08:52 146/71 H 08/21/19 07:17 98.1 F 75 15 141/68 H 95 08/21/19 05:00 97.5 F L 72 18 134/70 95 08/21/19 00:24 64 115/52 L Weight Admit Weight 116 lb 14.4 oz Weight 117 lb 11.629 oz I&O: 08/20/19 08/21/19 08/22/19 06:59 06:59 06:59 Intake Total 1235 Balance 1235 Result Diagrams: 08/20/19 04:52 08/21/19 04:42 Hospitalist ROS - Medication Medications: Active Medications Generic Name Dose Route Start Last Admin Trade Name Freq PRN Reason Stop Dose Admin Acetaminophen/Codeine Phosphate 1 tab 08/19/19 01:38 08/20/19 14:34 Tylenol #3 PO 1 tab DAILYPRN PRN Administration Moderate Pain (4-6) Alprazolam 1 mg 08/19/19 09:00 08/21/19 08:54 Xanax PO 1 mg BID RAGHU Administration Calcitriol 0.5 mcg 08/19/19 09:00 08/21/19 08:51 Rocaltrol PO 0.5 mcg DAILY RAGHU Administration Clonidine 0.1 mg 08/19/19 09:00 08/21/19 08:52 Catapres PO 0.1 mg BID RAGHU Administration Clonidine 0.1 mg 08/20/19 03:38 08/20/19 03:58 Catapres PO 0.1 mg Q4H PRN Administration SBP > 160 OR DBP > 100 Donepezil HCl 5 mg 08/19/19 09:00 08/21/19 08:52 Aricept PO 5 mg DAILY RAGHU Administration Ferrous Sulfate 325 mg 08/19/19 08:00 08/21/19 08:52 Feosol PO 324 mg BID-WM RAGHU Administration Fluconazole 100 mg 08/19/19 09:00 08/21/19 08:52 Diflucan PO 100 mg DAILY RAGHU Administration Gabapentin 300 mg 08/19/19 09:00 08/21/19 08:50 Neurontin PO 300 mg BID RAGHU Administration Heparin Sodium (Porcine) 5,000 units 08/19/19 09:00 08/21/19 08:54 Heparin SC 5,000 units TID RAGHU Administration Hydralazine HCl 10 mg 08/20/19 01:12 08/20/19 05:46 Apresoline SLOW IVP 10 mg Q4H PRN Administration SBP > 160 or DBP > 100 Vancomycin HCl 250 mg/ Sodium 100 mls @ 100 mls/hr 08/19/19 01:15 08/20/19 12 :39 Chloride IVPB 100 mls WILLCALL RAGHU Administration Ceftriaxone Sodium 1 gm/ 100 mls @ 200 mls/hr 08/19/19 11:00 08/20/19 11:46 Sodium Chloride IVPB 100 mls 1100 RAGHU Administration Sodium Chloride 1,000 mls @ 75 mls/hr 08/20/19 19:00 08/21/19 08:01 Normal Saline 0.9% IV 1,000 mls .[id number] RAGHU Administration Magnesium Oxide 400 mg 08/20/19 21:00 08/21/19 08:53 Magnesium Oxide PO 400 mg BID RAGHU Administration Nifedipine 60 mg 08/20/19 09:00 08/21/19 08:54 Procardia Xl PO 60 mg DAILY RAGHU Administration Ondansetron HCl 4 mg 08/19/19 00:02 08/20/19 17:44 Zofran Odt PO 4 mg Q6H PRN Administration Nausea/Vomiting Pantoprazole Sodium 40 mg 08/21/19 09:00 08/21/19 08:55 Protonix IVP 40 mg DAILY RAGHU Administration Paroxetine HCl 40 mg 08/19/19 09:00 08/21/19 08:51 Paxil PO 40 mg DAILY RAGHU Administration Prednisone 5 mg 08/19/19 09:00 08/21/19 08:53 Prednisone PO 5 mg BID RAGHU Administration Ropinirole HCl 0.5 mg 08/19/19 21:00 08/20/19 20:40 Requip PO 0.5 mg HS RAGHU Administration Sodium Chloride 10 ml 08/19/19 09:00 08/21/19 09:16 Flush - Normal Saline IVF 10 ml Q12HR RAGHU Administration Sodium Chloride 10 ml 08/20/19 21:33 08/21/19 08:55 Normal Saline Pf FS 10 ml PRN PRN Administration RECONSTITUTION Tacrolimus 1 mg 08/19/19 09:00 08/21/19 08:53 Prograf PO 1 mg BID RAGHU Administration Tizanidine HCl 4 mg 08/19/19 01:38 08/20/19 11:52 Zanaflex PO 4 mg BID PRN Administration muscle spasms Trazodone HCl 100 mg 08/19/19 21:00 08/20/19 20:39 Desyrel PO Not Given HS RAGHU - Exam Neck: no JVD Heart: RRR Respiratory: CTAB Gastrointestinal: soft, normal bowel sounds Gastrointestinal - other findings: PD cathpresent Extremities: no edema Hosp A/P (1) Peritonitis associated with peritoneal dialysis Status: Acute (2) ESRD (end stage renal disease) on dialysis Code(s): N18.6 - END STAGE RENAL DISEASE; Z99.2 - DEPENDENCE ON RENAL DIALYSIS Status: Acute (3) CAD (coronary artery disease) Code(s): I25.10 - ATHSCL HEART DISEASE OF [place] CORONARY ARTERY W/O ANG PCTRS Status: Chronic Qualifiers: Coronary Disease-Associated Artery/Lesion type: [place] artery [place] vs. transplanted heart: [place] heart Associated angina: without angina Qualified Code(s): I25.10 - Atherosclerotic heart disease of [place] coronary artery without angina pectoris (4) Hypertension Code(s): I10 - ESSENTIAL (PRIMARY) HYPERTENSION Status: Chronic Qualifiers: Hypertension type: essential hypertension Qualified Code(s): I10 - Essential (primary) hypertension (5) Sleep apnea Code(s): G47.30 - SLEEP APNEA, UNSPECIFIED Status: Chronic - Plan contg iv antibx planned removal PD cath,placement HD cath cont dialysis per renal selected home meds
[2019-08-21] MEDS ORDERED: Potassium Chloride 40 MEQ in Sodium Chloride 0.9% 250 ML 250 ML IVPB SCH (09:30)
[2019-08-21] MEDS ORDERED: CEFAZOLIN 2 GM in Premix Bag 1 BAG IVPB SCH (11:15)
--- NOTE | 2019-08-21 11:41 | CON ---
DATE OF CONSULTATION: HISTORY OF PRESENT ILLNESS: Norma Park is a 63-year-old female admitted to the hospital for recurrent peritonitis. She has a peritoneal dialysis catheter in place. She has had recurrent episodes of peritonitis. I have been asked by her architectural administrative assistant to remove the peritoneal dialysis catheter, and place a hemodialysis catheter to enable her to go to residential to undergo hemodialysis. We will plan that tomorrow as she has drank coffee with cream today, which demands 8 hour n.p.o. status and could not be done until later this evening. We will plan n.p.o. tonight and removal of PD catheter and hemodialysis catheter tomorrow. On August 2014, I saw the patient for hemorrhoidectomy for prolapsed hemorrhoids. In October 2017, I placed a left IJ central line for respiratory failure. On November 15, 2017, the patient had ORIF for left tibia. The patient has had a previous renal transplant. In October 2018, I had a failed attempted placement of left IJ tunneled dialysis catheter. I could cannulate IJ, but could not thread the J-wire placed the right femoral vein cuffed tunneled dialysis catheter under fluoroscopy. On November 18, 2018, the patient had a laparoscopic peritoneal dialysis catheter, double cuffed pigtail, omentopexy, right arm fistula, perforating branch antecubital vein to proximal radial artery, outflow with cephalic vein only. Basilic vein is of acceptable caliber and available for future use, retrograde antecubital vein preserved, although small. Unfortunately, she thrombosed her fistula. She did have a marking ultrasound on November 16, 2018. It revealed basilic vein to be of good caliber on the right. In the left, the cephalic vein was small in the AC and the upper arm basilic vein was of better caliber throughout the left arm. Of note, the patient did have a nuclear cardiac stress test, October 2017, that was normal with a normal EF. ALLERGIES: 1. LATEX. 2. PROMETHAZINE. MEDICATIONS: 1. Gabapentin. 2. CellCept. 3. Tizanidine. 4. Requip. 5. Calcitriol. 6. Prednisone. 7. Catapres. 8. Zofran. 9. Aricept. 10. Prograf. 11. Trazodone. 12. Norvasc. 13. Tylenol No. 3. The patient's architectural administrative assistant is Dr. Julio, admitted by the Hospitalist Service, 06/18/2019. PAST SURGICAL HISTORY: Left renal transplant, cardiac catheterization, cholecystectomy, hysterectomy, left leg surgery, back surgery, dialysis access. PAST MEDICAL HISTORY: Dementia, end-stage renal disease, history of renal transplant, now on peritoneal dialysis with recurrent peritonitis. Plan removal of PD catheter and placement of hemodialysis catheter. PHYSICAL EXAMINATION: VITAL SIGNS: Height 5 feet 1 inch, 117 pounds. Temperature 98.1 and blood pressure 146/71. HEAD, EARS, EYES, NOSE, AND THROAT: Unremarkable. LUNGS: Clear to auscultation. CARDIAC: Regular rate and rhythm. No murmur or gallop. ABDOMEN: Soft and nontender. EXTREMITIES: Unremarkable. ASSESSMENT AND PLAN: 1. End-stage renal disease, on peritoneal dialysis with recurrent peritonitis. We will plan removal of her PD catheter and placement of hemodialysis catheter as likely she will need a femoral vein cuffed tunneled dialysis catheter. She understands the risks and benefits, and consents. We will plan that tomorrow after adequate n.p.o. status. 2. Thrombosed fistula, right arm. She has poor veins for fistula, although possibly could have a staged basilic vein fistula. We will plan to explore her arms for primary fistula tomorrow at the time of placement of her hemodialysis catheter. Hopefully, she will need to have that as a backup. She has multiple ecchymoses of both antecubital area, left more than right indicative of blood draws in end-stage renal disease patient. Job ID: [id number]
[2019-08-21] MEDS: cefTRIAXone\\ROCEPHIN 1 GM in Sodium Chloride 0.9% 100 ML IVPB SCH (11:43)
[2019-08-21] MEDS: Acetaminophen/Codeine 30-300mg Tablet PO PRN (17:30)
[2019-08-21] MEDS: rOPINIRole HCl 0.5 MG TAB PO SCH (21:03)
[2019-08-21] MEDS: traZODone HCl 50 MG TAB PO SCH (21:03)
[2019-08-22] MEDS: Heparin 5,000 UNITS/ML VIAL SC SCH ×3 (07:54→19:58)
--- NOTE | 2019-08-22 08:01 | PDOC.HOSPP ---
- Subjective Encounter Date: 08/22/19 Encounter Time: 07:59 Subjective: no fever, chills, pain - Objective Vital Signs & Weight: Vital Signs (12 hours) Temp Pulse Resp BP BP Pulse Ox 08/22/19 07:05 97.4 F L 77 18 137/72 95 08/22/19 04:00 98.3 F 66 18 138/66 93 L 08/22/19 00:00 98.0 F 74 18 135/73 93 L 08/21/19 21:03 127/60 08/21/19 20:15 98 F 66 18 127/60 93 L Weight Admit Weight 116 lb 14.4 oz Weight 117 lb 11.629 oz I&O: 08/21/19 08/22/19 08/23/19 06:59 06:59 06:59 Intake Total 1235 1730 Output Total 450 Balance 1235 1280 Result Diagrams: 08/20/19 04:52 08/21/19 04:42 Hospitalist ROS - Medication Medications: Active Medications Generic Name Dose Route Start Last Admin Trade Name Freq PRN Reason Stop Dose Admin Acetaminophen/Codeine Phosphate 1 tab 08/19/19 01:38 08/21/19 17:30 Tylenol #3 PO 1 tab DAILYPRN PRN Administration Moderate Pain (4-6) Alprazolam 1 mg 08/19/19 09:00 08/21/19 21:02 Xanax PO 1 mg BID RAGHU Administration Calcitriol 0.5 mcg 08/19/19 09:00 08/21/19 08:51 Rocaltrol PO 0.5 mcg DAILY RAGHU Administration Calcium Carbonate 1,000 mg 08/20/19 21:34 08/21/19 09:46 Tums PO 1,000 mg Q4H PRN Administration Heartburn or Indigestion Clonidine 0.1 mg 08/19/19 09:00 08/21/19 21:03 Catapres PO 0.1 mg BID RAGHU Administration Clonidine 0.1 mg 08/20/19 03:38 08/20/19 03:58 Catapres PO 0.1 mg Q4H PRN Administration SBP > 160 OR DBP > 100 Donepezil HCl 5 mg 08/19/19 09:00 08/21/19 08:52 Aricept PO 5 mg DAILY RAGHU Administration Ferrous Sulfate 325 mg 08/19/19 08:00 08/21/19 15:32 Feosol PO 325 mg BID-WM RAGHU Administration Fluconazole 100 mg 08/19/19 09:00 08/21/19 08:52 Diflucan PO 100 mg DAILY RAGHU Administration Gabapentin 300 mg 08/19/19 09:00 08/21/19 21:04 Neurontin PO 300 mg BID RAGHU Administration Heparin Sodium (Porcine) 5,000 units 08/19/19 09:00 08/22/19 07:54 Heparin SC Not Given TID RAGHU Hydralazine HCl 10 mg 08/20/19 01:12 08/20/19 05:46 Apresoline SLOW IVP 10 mg Q4H PRN Administration SBP > 160 or DBP > 100 Vancomycin HCl 250 mg/ Sodium 100 mls @ 100 mls/hr 08/19/19 01:15 08/20/19 12 :39 Chloride IVPB 100 mls WILLCALL RAGHU Administration Ceftriaxone Sodium 1 gm/ 100 mls @ 200 mls/hr 08/19/19 11:00 08/21/19 11:43 Sodium Chloride IVPB 100 mls 1100 RAGHU Administration Sodium Chloride 1,000 mls @ 75 mls/hr 08/20/19 19:00 08/21/19 22:17 Normal Saline 0.9% IV 1,000 mls .[id number] RAGHU Administration Magnesium Oxide 400 mg 08/20/19 21:00 08/21/19 21:04 Magnesium Oxide PO 400 mg BID RAGHU Administration Nifedipine 60 mg 08/20/19 09:00 08/21/19 08:54 Procardia Xl PO 60 mg DAILY RAGHU Administration Ondansetron HCl 4 mg 08/19/19 00:02 08/20/19 17:44 Zofran Odt PO 4 mg Q6H PRN Administration Nausea/Vomiting Pantoprazole Sodium 40 mg 08/21/19 09:00 08/21/19 08:55 Protonix IVP 40 mg DAILY RAGHU Administration Paroxetine HCl 40 mg 08/19/19 09:00 08/21/19 08:51 Paxil PO 40 mg DAILY RAGHU Administration Prednisone 5 mg 08/19/19 09:00 08/21/19 21:04 Prednisone PO 5 mg BID RAGHU Administration Ropinirole HCl 0.5 mg 08/19/19 21:00 08/21/19 21:03 Requip PO 0.5 mg HS RAGHU Administration Sodium Chloride 10 ml 08/19/19 09:00 08/21/19 21:10 Flush - Normal Saline IVF Not Given Q12HR RAGHU Sodium Chloride 10 ml 08/20/19 21:33 08/21/19 08:55 Normal Saline Pf FS 10 ml PRN PRN Administration RECONSTITUTION Tacrolimus 1 mg 08/19/19 09:00 08/21/19 21:04 Prograf PO 1 mg BID RAGHU Administration Tizanidine HCl 4 mg 08/19/19 01:38 08/20/19 11:52 Zanaflex PO 4 mg BID PRN Administration muscle spasms Trazodone HCl 100 mg 08/19/19 21:00 08/21/19 21:03 Desyrel PO 100 mg HS RAGHU Administration - Exam General Appearance: awake alert Neck: no JVD Heart: RRR, no murmur Respiratory: CTAB Gastrointestinal: soft, non-tender, normal bowel sounds Gastrointestinal - other findings: PD catheter Extremities: no edema Hosp A/P (1) Peritonitis associated with peritoneal dialysis Status: Acute (2) ESRD (end stage renal disease) on dialysis Code(s): N18.6 - END STAGE RENAL DISEASE; Z99.2 - DEPENDENCE ON RENAL DIALYSIS Status: Acute (3) CAD (coronary artery disease) Code(s): I25.10 - ATHSCL HEART DISEASE OF [place] CORONARY ARTERY W/O ANG PCTRS Status: Chronic Qualifiers: Coronary Disease-Associated Artery/Lesion type: [place] artery [place] vs. transplanted heart: [place] heart Associated angina: without angina Qualified Code(s): I25.10 - Atherosclerotic heart disease of [place] coronary artery without angina pectoris (4) Hypertension Code(s): I10 - ESSENTIAL (PRIMARY) HYPERTENSION Status: Chronic Qualifiers: Hypertension type: essential hypertension Qualified Code(s): I10 - Essential (primary) hypertension (5) Sleep apnea Code(s): G47.30 - SLEEP APNEA, UNSPECIFIED Status: Chronic Qualifiers: Sleep apnea type: unspecified type Qualified Code(s): G47.30 - Sleep apnea , unspecified - Plan contg iv antibx planned removal PD cath,placement HD cath today cont dialysis per renal selected home meds FU post 0p
[2019-08-22] MEDS: Calcitriol 0.25 MCG CAP PO SCH (08:30)
[2019-08-22] MEDS: Fluconazole 100 MG TAB PO SCH (08:31)
[2019-08-22] MEDS: PARoxetine 20 MG TAB PO SCH (08:31)
[2019-08-22] MEDS: NIFEdipine XL 60 MG TAB PO SCH (08:32)
[2019-08-22] MEDS: cloNIDine 0.1 MG TAB PO SCH ×2 (08:32→19:57)
[2019-08-22] MEDS: predniSONE 5 MG TAB PO SCH ×2 (08:33→19:57)
[2019-08-22] MEDS: Donepezil HCl 5 MG TAB PO SCH (08:33)
[2019-08-22] MEDS: Gabapentin 300 MG CAP PO SCH ×2 (08:34→19:58)
[2019-08-22] MEDS: Ferrous Sulfate 325 MG TAB PO SCH ×2 (08:34→16:04)
[2019-08-22] MEDS: Magnesium Oxide 400 MG TAB PO SCH ×2 (08:34→19:57)
[2019-08-22] MEDS: ALPRAZolam 1 MG TAB PO SCH ×2 (08:34→19:57)
[2019-08-22] MEDS: Tacrolimus 1 MG CAP PO SCH ×2 (08:34→19:57)
[2019-08-22] MEDS: Pantoprazole 40 MG VIAL IVP SCH (08:35)
[2019-08-22] MEDS: Sodium Chloride 0.9% (PF) 10 ML VIAL FS PRN (08:35)
[2019-08-22 09:57] LABS: #Eosinphils 0.1 thou/uL (0.0-0.7); #Lymphocytes 1.2 thou/uL (1.20-3.40); #Monocytes 0.5 thou/uL (0.11-0.59); #Neutrophils 10.9 thou/uL (1.40-6.50); %Basophils 0.1 % (0.0-1.0); %Eosinophils 0.5 % (0.0-10.0); %Lymphocytes 9.5 % (21.0-51.0); %Monocytes 4.2 % (0.0-10.0); %Neutrophils 85.6 % (42.0-75.0); Mean Corpuscular HGB CONC 32.5 g/dL (32.0-36.0); Mean Corpuscular Hemoglobin 28.3 pg (27.0-31.0); Mean Corpuscular Volume 87.1 fL (78.0-98.0); Mean Platelet Volume 7.5 fL (7.4-10.4); Platelet Count 179 thou/uL (130-400); RBC Distribution Width 13.7 % (11.5-14.5); Red Blood Cell (RBC) Count 5.28 mill/uL (4.20-5.40); White Blood Cell (WBC) Count 12.7 thou/uL (4.8-10.8)
[2019-08-22 10:19] LABS: Vancomycin, Random 10.7 ug/mL (See Comment)
[2019-08-22 10:21] LABS: Anion Gap 11 mmol/L (10-20); BUN (Urea Nitrogen) 28 mg/dL (9.8-20.1); Calc. Creatinine Clearance 11 mL/min (70-130); Calcium 7.8 mg/dL (7.8-10.44); Carbon Dioxide 21 mmol/L (23-31); Chloride 111 mmol/L (98-107); Estimated GFR-MDRD 10; Glucose 86 mg/dL (80-115); Potassium 4.3 mmol/L (3.5-5.1); Sodium 139 mmol/L (136-145)
[2019-08-22] MEDS ORDERED: Fentanyl 100 MCG/2 ML VIAL ONE (10:29)
--- NOTE | 2019-08-22 10:30 | PRG ---
DATE OF SERVICE: 08/22/2019 SERVICE: Renal Medicine. SUBJECTIVE: Ms. Park is a 63-year-old white female with ESRD and was admitted for peritonitis. She has had refractory peritonitis. She has received intraperitoneal antibiotics without complete resolution of the peritonitis. There was also concern there might have fungal infection. She is on antifungal at the present time. In addition, we have consulted Surgery for removal of the PD catheter and placed a cuffed hemodialysis catheter. Therefore, a backup hemodialysis. This morning, no new complaints. She is feeling better. At one time, she was noted to be hypotensive and she was started on IV fluid. She still has a decreased p.o. intake. We are awaiting care home facility placement with this patient. OBJECTIVE: VITAL SIGNS: Blood pressure 127/60, heart rate 77, respiratory rate 18, temperature 97.4, pulse ox is 95%. GENERAL: Awake, alert, comfortable, not in overt distress. SKIN: Adequate turgor. HEENT: She has pinkish conjunctivae. Anicteric sclerae. NECK: No neck mass. No carotid bruits. No JVD. CHEST: No deformities. LUNGS: Clear breath sounds. HEART: Normal sinus rhythm. No murmurs. No gallops. No rubs. ABDOMEN: Globular, soft, nontender. No masses. EXTREMITIES: No edema. No deformities. Positive for PD catheter. MEDICATIONS: Medications of August 22, 2019, were reviewed. LABORATORY DATA: Laboratories of August 20, 2019, white count 11.5, hemoglobin 10.3. August 21, 2019, sodium 135, potassium 3.3, chloride 106, carbon dioxide 22, BUN 28, creatinine 4.5, glucose 104, calcium 8.1, albumin 2.7. ASSESSMENT AND PLAN: 1. Peritonitis-refractory to current antibiotics. Peritoneal dialysis catheter will be pulled out by Dr. Beltre. 2. End-stage renal disease. The patient will be placed on backup hemodialysis. A cuffed hemodialysis catheter will be placed by Surgery. 3. Failure to thrive-care home facility referral. 4. Anemia, chronic-no indication for any Epogen. Hemoglobin is stable. We will recheck basic met and CBC in a.m. 5. Mild hypokalemia. The patient received IV potassium yesterday. Job ID: [id number]
[2019-08-22] MEDS ORDERED: Lidocaine 2% PF 5 ML VIAL ONE (10:33)
[2019-08-22] MEDS ORDERED: Bupivacaine HCl 0.5%/Epinephrine 1:200,000/PF 30 ml Vial ONE (10:33)
[2019-08-22] MEDS ORDERED: Heparin 5,000 UNITS/ML VIAL ONE (10:33)
[2019-08-22] MEDS ORDERED: Protamine Sulfate 50 MG/5 ML VIAL ONE (10:33)
[2019-08-22] MEDS ORDERED: Heparin 10,000 UNITS/1 ML VIAL ONE (10:54)
[2019-08-22] MEDS ORDERED: Sodium Chloride 0.9% 10 ML ONE (11:59)
[2019-08-22] MEDS ORDERED: Acetaminophen 500 MG TAB PO PRN (12:32)
[2019-08-22] MEDS ORDERED: Ondansetron HCl/PF 4 MG/2 ML Vial IVP PRN (12:45)
--- NOTE | 2019-08-22 12:59 | RAD ---
XR Chest 1 View Portable History: Central line placement Comparison: Radiograph May 01, 2019 Findings: Left IJ dialysis catheter tip sits at the right atrium. Mild edema and volume overload. No pneumothorax. Impression: Uncomplicated placement of the dialysis catheter.
--- NOTE | 2019-08-22 13:20 | OP ---
DATE OF PROCEDURE: 08/22/2019 PREOPERATIVE DIAGNOSES: End-stage renal disease, thrombosed right arm arteriovenous fistula, recurrent peritonitis from peritoneal dialysis catheter, previously had to place a hemodialysis catheter femoral vein due to inability to access the internal jugular veins. POSTOPERATIVE DIAGNOSES: End-stage renal disease, thrombosed right arm arteriovenous fistula, recurrent peritonitis from peritoneal dialysis catheter, previously had to place a hemodialysis catheter femoral vein due to inability to access the internal jugular veins. PROCEDURE PERFORMED: Left internal jugular cuffed tunneled hemodialysis catheter, fluoroscopy and ultrasound used. Exploration of the left arm, forearm, finding inadequate veins for fistula. Graft not placed as she plans to return to peritoneal dialysis. Removal of peritoneal dialysis catheter. Note, internal cuff not incorporated. ANESTHESIA: General anesthesia, local 0.5% Marcaine with epinephrine 30 mL. DESCRIPTION OF PROCEDURE: The patient was taken to the operating room, where under general anesthesia, neck, chest, left arm, and abdomen were prepared with ChloraPrep and draped in routine fashion. Local anesthetic was infiltrated in the skin and subcutaneous tissue about the operative sites. Ultrasound was used to cannulate the left internal jugular vein with a trocar catheter, threading the J-wire initially with some resistance, but it threaded into the superior vena cava. Skin was enlarged sharply. Stab incision was made in the left chest. Using a tunneling device, pre-curved [employer] cuffed-tunneled hemodialysis catheter tunneled between 2 incisions, placed the fabric cuff beneath the skin exit site and secured the catheter with 2 interrupted suture of 3-0 nylon. Dermabond applied. Sterile dressings applied. Small and medium-sized dilators were placed over the J-wire and the internal jugular vein removed. Dilator and peel-away sheath were placed over the J-wire into the superior vena cava. Under fluoroscopic visualization, dilator and J-wire were removed, catheter placed with the peel-away sheath. Peel-Away sheath removed. Fluoroscopically, catheter noted to be in good position. Platysma was approximated with 4-0 Monocryl, skin with subdermal 4-0 Monocryl, and [place] glue applied. Each port site aspirated blood and flushed with saline solution and heparinized saline solution, 1000 units heparin per mL indicating the volume of the port. Attention was then turned to the left forearm. Incision was made in the proximal volar forearm, carried down to skin and subcutaneous tissue, antecubital vein nonexistent. Basilic vein dissected free more medial than expected, but it was too small for a fistula. Subcutaneous tissue was approximated with 3-0 Monocryl, skin with subdermal 4-0 Monocryl, and [place] glue applied. Attention was then turned to the PD catheter. Area had been prepared with ChloraPrep and draped in routine fashion. Catheter transected. The external cuff dissected free from the skin and subcutaneous tissue, and the internal cuff was not incorporated. The entire catheter removed. A gauze dressing applied. The patient tolerated procedure well without complications. Note, at the end, the patient if needs long-term dialysis, we will have to have a prosthetic graft placed. She was hoping to return to PD catheter in the next month. This can be placed in the future. Job ID: [id number]
[2019-08-22] MEDS: cefTRIAXone\\ROCEPHIN 1 GM in Sodium Chloride 0.9% 100 ML IVPB SCH (14:54)
[2019-08-22] MEDS: Acetaminophen/Codeine 30-300mg Tablet PO PRN (14:55)
[2019-08-22] MEDS: Sodium Chloride 0.9% 1,000 ML IV SCH (14:55)
[2019-08-22] MEDS: traMADol HCl 50 MG TAB PO PRN (17:27)
[2019-08-22] MEDS: traZODone HCl 50 MG TAB PO SCH (19:56)
[2019-08-22] MEDS: rOPINIRole HCl 0.5 MG TAB PO SCH (19:57)
[2019-08-23] MEDS: traMADol HCl 50 MG TAB PO PRN ×2 (00:01→12:37)
[2019-08-23] MEDS: Sodium Chloride 0.9% 1,000 ML IV SCH ×2 (02:09→15:07)
[2019-08-23 05:05] LABS: #Basophils 0.1 thou/uL (0.0-0.2); #Eosinphils 0.1 thou/uL (0.0-0.7); #Lymphocytes 1.6 thou/uL (1.20-3.40); #Monocytes 1.1 thou/uL (0.11-0.59); #Neutrophils 14.1 thou/uL (1.40-6.50); %Basophils 0.3 % (0.0-1.0); %Eosinophils 0.4 % (0.0-10.0); %Lymphocytes 9.4 % (21.0-51.0); %Monocytes 6.6 % (0.0-10.0); %Neutrophils 83.3 % (42.0-75.0); Hemoglobin 13.5 g/dL (12.0-16.0); Mean Corpuscular HGB CONC 32.4 g/dL (32.0-36.0); Mean Corpuscular Hemoglobin 28.4 pg (27.0-31.0); Mean Corpuscular Volume 87.8 fL (78.0-98.0); Mean Platelet Volume 8.2 fL (7.4-10.4); Platelet Count 177 thou/uL (130-400); Red Blood Cell (RBC) Count 4.75 mill/uL (4.20-5.40); White Blood Cell (WBC) Count 16.9 thou/uL (4.8-10.8)
[2019-08-23 05:32] LABS: Anion Gap 12 mmol/L (10-20); BUN (Urea Nitrogen) 31 mg/dL (9.8-20.1); Calc. Creatinine Clearance 11 mL/min (70-130); Calcium 7.3 mg/dL (7.8-10.44); Carbon Dioxide 18 mmol/L (23-31); Chloride 113 mmol/L (98-107); Estimated GFR-MDRD 10; Glucose 86 mg/dL (80-115); Potassium 4.2 mmol/L (3.5-5.1); Sodium 139 mmol/L (136-145)
[2019-08-23] MEDS: Ferrous Sulfate 325 MG TAB PO SCH ×2 (09:18→16:48)
[2019-08-23] MEDS: Pantoprazole 40 MG VIAL IVP SCH (09:19)
[2019-08-23] MEDS: ALPRAZolam 1 MG TAB PO SCH ×3 (09:22→20:33)
[2019-08-23] MEDS: cloNIDine 0.1 MG TAB PO SCH ×3 (09:22→20:32)
[2019-08-23] MEDS: Calcitriol 0.25 MCG CAP PO SCH (09:22)
[2019-08-23] MEDS: Fluconazole 100 MG TAB PO SCH (09:23)
[2019-08-23] MEDS: Gabapentin 300 MG CAP PO SCH ×2 (09:23→20:33)
[2019-08-23] MEDS: Heparin 5,000 UNITS/ML VIAL SC SCH ×3 (09:23→20:32)
[2019-08-23] MEDS: Donepezil HCl 5 MG TAB PO SCH (09:23)
[2019-08-23] MEDS: NIFEdipine XL 60 MG TAB PO SCH ×2 (09:24→16:46)
[2019-08-23] MEDS: Tacrolimus 1 MG CAP PO SCH ×2 (09:24→20:33)
[2019-08-23] MEDS: PARoxetine 20 MG TAB PO SCH (09:24)
[2019-08-23] MEDS: predniSONE 5 MG TAB PO SCH ×2 (09:24→20:33)
[2019-08-23] MEDS: Magnesium Oxide 400 MG TAB PO SCH ×2 (09:24→20:33)
--- NOTE | 2019-08-23 09:55 | PRG ---
DATE OF SERVICE: 08/23/2019 SERVICE: Renal Medicine. SUBJECTIVE: Ms. Park is a 63-year-old white female with ESRD-on maintenance peritoneal dialysis. Due to the persistent peritonitis/refractory peritonitis, the PD catheter was pulled out, and she is now converted to backup hemodialysis. Dr. Beltre removed the PD catheter. In addition, a cuffed hemodialysis catheter was placed. No new complaints today. No chest pain or shortness of breath. No abdominal pain. OBJECTIVE: VITAL SIGNS: Blood pressure 141/72, heart rate 85, respiratory rate 16, temperature 97.7, pulse ox 93%. GENERAL: Noted to be awake, alert, comfortable, not in overt distress. SKIN: Adequate turgor. HEENT: She has pinkish conjunctivae. Anicteric sclerae. NECK: No neck mass. No carotid bruits. No JVD. CHEST: No deformities. LUNGS: Clear breath sounds. HEART: Normal sinus rhythm. No murmurs, gallops, or rubs. ABDOMEN: Globular, soft, nontender. No masses. EXTREMITIES: No edema. MEDICATIONS: Medications of August 23, 2019, reviewed. LABORATORY DATA: Laboratories of August 23, 2019: White count 16.9, hemoglobin 13.5, sodium 139, potassium 4.2, chloride 113, carbon dioxide 18, BUN 31, creatinine 4.46, glucose 86, and calcium 7.3. ASSESSMENT AND PLAN: 1. End-stage renal disease-The patient now converted for backup hemodialysis. We will do a 2-hour hemodialysis today and then schedule her on Wednesday, Wednesday, Wednesday 3-hour hemodialysis sessions. 2. Peritonitis. Continue IV antibiotics. We will discontinue once discharged. We are awaiting outpatient hemodialysis placement. We are awaiting prison facility placement for this patient. Overall, agree with current management. Job ID: [id number]
--- NOTE | 2019-08-23 10:02 | PDOC.HOSPP ---
- Subjective Encounter Date: 08/23/19 Encounter Time: 10:00 Subjective: nocomplaints,HD today - Objective Vital Signs & Weight: Vital Signs (12 hours) Temp Pulse Resp BP BP Pulse Ox 08/23/19 09:24 92 08/23/19 09:22 141/72 H 08/23/19 08:00 97.4 F L 92 18 148/76 H 93 L 08/23/19 04:00 97.7 F 85 16 141/67 H 93 L Weight Admit Weight 116 lb 14.4 oz Weight 121 lb 14.65 oz I&O: 08/22/19 08/23/19 08/24/19 06:59 06:59 06:59 Intake Total 1730 2460 Output Total 450 1565 Balance 1280 895 Result Diagrams: 08/23/19 04:20 08/23/19 04:20 Additional Labs: Accuchecks 08/20/19 16:05 POC Glucose 154 H Hospitalist ROS - Medication Medications: Active Medications Generic Name Dose Route Start Last Admin Trade Name Freq PRN Reason Stop Dose Admin Acetaminophen/Codeine Phosphate 1 tab 08/19/19 01:38 08/22/19 14:55 Tylenol #3 PO 1 tab DAILYPRN PRN Administration Moderate Pain (4-6) Alprazolam 1 mg 08/19/19 09:00 08/23/19 09:22 Xanax PO Not Given BID [facility] Calcitriol 0.5 mcg 08/19/19 09:00 08/23/19 09:22 Rocaltrol PO Not Given DAILY [facility] Calcium Carbonate 1,000 mg 08/20/19 21:34 08/21/19 09:46 Tums PO 1,000 mg Q4H PRN Administration Heartburn or Indigestion Clonidine 0.1 mg 08/19/19 09:00 08/23/19 09:22 Catapres PO Not Given BID [facility] Clonidine 0.1 mg 08/20/19 03:38 08/20/19 03:58 Catapres PO 0.1 mg Q4H PRN Administration SBP > 160 OR DBP > 100 Donepezil HCl 5 mg 08/19/19 09:00 08/23/19 09:23 Aricept PO Not Given DAILY [facility] Ferrous Sulfate 325 mg 08/19/19 08:00 08/23/19 09:18 Feosol PO Not Given BID[facility] Fluconazole 100 mg 08/19/19 09:00 08/23/19 09:23 Diflucan PO Not Given DAILY [facility] Gabapentin 300 mg 08/19/19 09:00 08/23/19 09:23 Neurontin PO Not Given BID [facility] Heparin Sodium (Porcine) 5,000 units 08/19/19 09:00 08/23/19 09:23 Heparin SC Not Given TID [facility] Hydralazine HCl 10 mg 08/20/19 01:12 08/20/19 05:46 Apresoline SLOW IVP 10 mg Q4H PRN Administration SBP > 160 or DBP > 100 Vancomycin HCl 250 mg/ Sodium 100 mls @ 100 mls/hr 08/19/19 01:15 08/20/19 12 :39 Chloride IVPB 100 mls WILLCALL RAGHU Administration Ceftriaxone Sodium 1 gm/ 100 mls @ 200 mls/hr 08/19/19 11:00 08/22/19 14:54 Sodium Chloride IVPB 100 mls 1100 RAGHU Administration Sodium Chloride 1,000 mls @ 75 mls/hr 08/20/19 19:00 08/23/19 02:09 Normal Saline 0.9% IV 1,000 mls .[id number] RAGHU Administration Magnesium Oxide 400 mg 08/20/19 21:00 08/23/19 09:24 Magnesium Oxide PO Not Given BID [facility] Nifedipine 60 mg 08/20/19 09:00 08/23/19 09:24 Procardia Xl PO Not Given DAILY [facility] Ondansetron HCl 4 mg 08/19/19 00:02 08/20/19 17:44 Zofran Odt PO 4 mg Q6H PRN Administration Nausea/Vomiting Pantoprazole Sodium 40 mg 08/21/19 09:00 08/23/19 09:19 Protonix IVP 40 mg DAILY [facility] Administration Paroxetine HCl 40 mg 08/19/19 09:00 08/23/19 09:24 Paxil PO Not Given DAILY [facility] Prednisone 5 mg 08/19/19 09:00 08/23/19 09:24 Prednisone PO Not Given BID [facility] Ropinirole HCl 0.5 mg 08/19/19 21:00 08/22/19 19:57 Requip PO 0.5 mg HS RAGHU Administration Sodium Chloride 10 ml 08/19/19 09:00 08/23/19 09:24 Flush - Normal Saline IVF Not Given Q12HR RAGHU Sodium Chloride 10 ml 08/20/19 21:33 08/22/19 08:35 Normal Saline Pf FS 10 ml PRN PRN Administration RECONSTITUTION Tacrolimus 1 mg 08/19/19 09:00 08/23/19 09:24 Prograf PO Not Given BID RAGHU Tizanidine HCl 4 mg 08/19/19 01:38 08/20/19 11:52 Zanaflex PO 4 mg BID PRN Administration muscle spasms Tramadol HCl 50 mg 08/22/19 12:32 08/23/19 00:01 Ultram PO 50 mg Q4H PRN Administration MILD TO MODERATE Pain Trazodone HCl 100 mg 08/19/19 21:00 08/22/19 19:56 Desyrel PO 100 mg HS RAGHU Administration - Exam Neck: no JVD Heart: RRR, no murmur Respiratory: CTAB Gastrointestinal: soft, normal bowel sounds Extremities: 1+ LE edema Hosp A/P (1) Peritonitis associated with peritoneal dialysis Status: Acute (2) ESRD (end stage renal disease) on dialysis Code(s): N18.6 - END STAGE RENAL DISEASE; Z99.2 - DEPENDENCE ON RENAL DIALYSIS Status: Acute (3) CAD (coronary artery disease) Code(s): I25.10 - ATHSCL HEART DISEASE OF [place] CORONARY ARTERY W/O ANG PCTRS Status: Chronic Qualifiers: Coronary Disease-Associated Artery/Lesion type: [place] artery [place] vs. transplanted heart: [place] heart Associated angina: without angina Qualified Code(s): I25.10 - Atherosclerotic heart disease of [place] coronary artery without angina pectoris (4) Hypertension Code(s): I10 - ESSENTIAL (PRIMARY) HYPERTENSION Status: Chronic Qualifiers: Hypertension type: essential hypertension Qualified Code(s): I10 - Essential (primary) hypertension (5) Sleep apnea Code(s): G47.30 - SLEEP APNEA, UNSPECIFIED Status: Chronic Qualifiers: Sleep apnea type: unspecified type Qualified Code(s): G47.30 - Sleep apnea , unspecified - Plan contg iv antibx HD today, discuss with Dr Sumanth leggett
[2019-08-23 11:29] LABS: HBSAg Index 0.21 S/CO (0-0.99); Hep B Surf Ag Non-Reactive S/CO (NonReactive)
[2019-08-23] MEDS: cefTRIAXone\\ROCEPHIN 1 GM in Sodium Chloride 0.9% 100 ML IVPB SCH (12:37)
--- NOTE | 2019-08-23 12:59 | PRG ---
DATE OF SERVICE: 08/23/2019 Norma Park is doing well today. She is going to start her 1st hemodialysis since placement of her new hemodialysis catheter in left IJ. She had removal of her PD catheter and that dressing is dry. Orders have been written to change this dressing daily, washing the wounds with soap and water, and placing a Band-Aid. Her left arm wound is stable with ecchymosis as expected. She had exploration for possible fistula, but had inadequate veins. Prosthetic graft was not placed as she is hoping to return to peritoneal dialysis in the future. At this point, I will see her as needed this hospitalization. Call as needed. The patient should follow up in my office in 3 to 4 weeks to discuss a new PD catheter. This will be done as an outpatient. Please call if needed. Job ID: [id number]
[2019-08-23] MEDS: rOPINIRole HCl 0.5 MG TAB PO SCH (20:32)
[2019-08-23] MEDS: traZODone HCl 50 MG TAB PO SCH (20:33)
[2019-08-24] MEDS: cloNIDine 0.1 MG TAB PO PRN (03:54)
[2019-08-24] MEDS: Sodium Chloride 0.9% 1,000 ML IV SCH (04:34)
[2019-08-24] MEDS: Heparin 5,000 UNITS/ML VIAL SC SCH (09:48)
[2019-08-24] MEDS: NIFEdipine XL 60 MG TAB PO SCH (09:50)
[2019-08-24] MEDS: PARoxetine 20 MG TAB PO SCH (09:50)
[2019-08-24] MEDS: Fluconazole 100 MG TAB PO SCH (09:50)
[2019-08-24] MEDS: Calcitriol 0.25 MCG CAP PO SCH (09:50)
[2019-08-24] MEDS: Gabapentin 300 MG CAP PO SCH (09:51)
[2019-08-24] MEDS: Tacrolimus 1 MG CAP PO SCH (09:51)
[2019-08-24] MEDS: Magnesium Oxide 400 MG TAB PO SCH (09:51)
[2019-08-24] MEDS: Ferrous Sulfate 325 MG TAB PO SCH (09:51)
[2019-08-24] MEDS: ALPRAZolam 1 MG TAB PO SCH (09:51)
[2019-08-24] MEDS: cloNIDine 0.1 MG TAB PO SCH (09:51)
[2019-08-24] MEDS: predniSONE 5 MG TAB PO SCH (09:51)
[2019-08-24] MEDS: Pantoprazole 40 MG VIAL IVP SCH (09:52)
[2019-08-24] MEDS: Donepezil HCl 5 MG TAB PO SCH (09:52)
--- NOTE | 2019-08-24 09:52 | PRG ---
DATE OF SERVICE: 08/24/2019 SUBJECTIVE: Ms. Park is a 63-year-old white female with ESRD. She has been converted from peritoneal dialysis to hemodialysis due to refractory peritonitis. No other complaints today. No abdominal pain. No chest pain or shortness of breath. Dr. Beltre has removed the PD catheter and placed cuffed hemodialysis catheter. She did undergo a 2-hour hemodialysis yesterday and tolerated said treatment. OBJECTIVE: VITAL SIGNS: Blood pressure is 176/82, heart rate 71, respiratory rate 19, temperature 99.1, and pulse ox 92%. GENERAL: The patient is awake, alert, comfortable, not in overt distress. SKIN: Adequate turgor. HEENT: She has pinkish conjunctivae. Anicteric sclerae. NECK: No neck mass. No carotid bruits. No JVD. CHEST: No deformities. LUNGS: Clear breath sounds. No wheezing. No crackles. HEART: Normal sinus rhythm. No murmur. No gallops. No rubs. ABDOMEN: Globular. Soft. Nontender. No masses. EXTREMITIES: No edema. MEDICATIONS: Medications of August 24, 2019, were reviewed. LABORATORY DATA: Laboratories of August 24, 2019; none done. August 23, 2019; potassium 4.2, BUN 31, creatinine 4.46, and hemoglobin 13.5. ASSESSMENT AND PLAN: 1. End-stage renal disease, stable, tolerating current hemodialysis regimen. We will continue Wednesday, Wednesday, and Wednesday dialysis. Peritoneal dialysis catheter has been removed. 2. Peritonitis-on antibiotics. We will consider treating her for another week of IV antibiotics. 3. Agree with current management for possible transfer to correction facility. We will follow up this patient at the outpatient dialysis unit. Job ID: [id number]
--- NOTE | 2019-08-24 11:40 | DIS ---
DATE OF ADMISSION: 08/20/2019 DATE OF DISCHARGE: 08/24/2019 PRIMARY CARE PROVIDER: Audi Donnelly MD FINAL DIAGNOSES: 1. Bacterial peritonitis related to peritoneal dialysis catheter. 2. End-stage renal disease, now on hemodialysis. 3. Coronary artery disease. 4. Hypertension. 5. Hypomagnesemia. 6. Physical deconditioning. DISCHARGE MEDICATIONS: 1. Calcium carbonate p.r.n. 2. Magnesium oxide 400 mg b.i.d. 3. Nifedipine 60 mg a day. 4. Zofran oral dissolving tablets 4 mg q.6 p.r.n. 5. Protonix 40 mg a day. 6. Alprazolam 0.5 mg twice a day. 7. Acetaminophen with codeine 300/30 q.4 hours p.r.n. 8. Calcitriol 0.25 mg a day. 9. Aricept 5 mg a day. 10. Ferrous sulfate 325 mg a day. 11. Diflucan 100 mg a day p.o. 12. Gabapentin 300 mg p.o. b.i.d. 13. Paxil 40 mg a day. 14. Prograf 1 mg p.o. b.i.d. 15. Prednisone 5 mg a day. 16. Requip 0.25 mg a day. 17. Tizanidine 4 mg b.i.d. p.r.n. 18. Trazodone 100 mg p.o. at bedtime. ALLERGIES: PROMETHAZINE. CODE STATUS: Full resuscitation. PENDING AT TIME OF DISCHARGE: Nothing. DIET: Renal, high-protein. HOSPITAL COURSE: The patient placed in the hospital with a history of peritoneal dialysis. The patient had diffuse abdominal pain and was concerned for peritoneal dialysis. Apparently, cultures were not obtained as there is no microbiology specimens available. Initial laboratory revealed a mild elevation of white count at 11.9 with mild neutrophilia, hemoglobin 15.8, platelet count 202,000. Initial chemistries; potassium of 2.6, which with treatment came up rapidly to 4.1; sodium 132, which came up to 136 with BUN 26, creatinine 4.41 with a CO2 of 27. Liver function tests were normal. Urine was clear. The patient was treated with broad-spectrum antibiotics including vancomycin. Consultations obtained; Dr. Abdirashid Julio, Nephrology, 08/21/2019; Dr. Omar Beltre, General Surgery, 08/21. On 08/22, Dr. Nelson offered to remove the peritoneal dialysis catheter and place the left internal jugular cuffed tunneled hemodialysis catheter. The patient has done well during her hospital stay. She is now on 3 times weekly hemodialysis. She is being moved to the [facility] for [facility] care. She will be transported to [facility], Wednesday, Wednesday, and Wednesday for hemodialysis. She will need follow up in 1 week by her PCP. She will be followed up at hemodialysis by Dr. Julio. Dr. Julio recommended discontinuing antibiotics at the time of discharge and this has been done. Job ID: [id number]
[2019-08-24 11:46] VITALS: BP 154/72; TEMP 98.3
[2019-08-24] MEDS: cefTRIAXone\\ROCEPHIN 1 GM in Sodium Chloride 0.9% 100 ML IVPB SCH (11:47)
== END 2019-08-24 16:50 | DRG 919 ==
LOC: ERS 15:40 → 2SW 08-19 00:16 → OBSVTOIN 08-20 11:11 → 2NO 08-20 15:46
PROVIDERS: ADMIT Hospitalist; ATTEND Hospitalist
PROC: 0JH63XZ Insertion of Tunneled Vascular Access Device into Chest Subcutaneous Tissue and Fascia, Percutaneous Approach (ICD-10-PCS; principal; 2019-08-22)
PROC: 02H633Z Insertion of Infusion Device into Right Atrium, Percutaneous Approach (ICD-10-PCS; 2019-08-22)
PROC: B214YZZ Fluoroscopy of Right Heart using Other Contrast (ICD-10-PCS; 2019-08-22)
PROC: 0WPGX3Z Removal of Infusion Device from Peritoneal Cavity, External Approach (ICD-10-PCS; 2019-08-22)
PROC: B51CZZZ Fluoroscopy of Left Lower Extremity Veins (ICD-10-PCS; 2019-08-22)
DX: T85.71XA Infection and inflammatory reaction due to peritoneal dialysis catheter, initial encounter (principal); N18.6 End stage renal disease; K65.8 Other peritonitis; I13.0 Hypertensive heart and chronic kidney disease with heart failure and stage 1 through stage 4 chronic kidney disease, or unspecified chronic kidney disease; Z94.0 Kidney transplant status; E87.1 Hypo-osmolality and hyponatremia; N25.81 Secondary hyperparathyroidism of renal origin; E44.1 Mild protein-calorie malnutrition; I82.611 Acute embolism and thrombosis of superficial veins of right upper extremity; Y84.1 Kidney dialysis as the cause of abnormal reaction of the patient, or of later complication, without mention of misadventure at the time of the procedure; I25.10 Atherosclerotic heart disease of native coronary artery without angina pectoris; I50.9 Heart failure, unspecified; F03.90 Unspecified dementia, unspecified severity, without behavioral disturbance, psychotic disturbance, mood disturbance, and anxiety; E87.6 Hypokalemia; E83.42 Hypomagnesemia; D63.1 Anemia in chronic kidney disease; G47.00 Insomnia, unspecified; G89.29 Other chronic pain; J44.9 Chronic obstructive pulmonary disease, unspecified; G25.81 Restless legs syndrome; G47.33 Obstructive sleep apnea (adult) (pediatric); Z91.19 Patient's noncompliance with other medical treatment and regimen; Z99.2 Dependence on renal dialysis; Z90.49 Acquired absence of other specified parts of digestive tract; I25.2 Old myocardial infarction; Z91.040 Latex allergy status; Z88.8 Allergy status to other drugs, medicaments and biological substances; Z68.22 Body mass index [BMI] 22.0-22.9, adult; Z87.891 Personal history of nicotine dependence; Z79.52 Long term (current) use of systemic steroids; Z79.899 Other long term (current) drug therapy
CPT/HCPCS: 36415; 36416; 71045; 80048; 80053; 80069; 80202; 81003; 81015; 83605; 83690; 83735; 84100; 85025; 87340; 90945; 93005; 93010; 96361; 96365; 96375; C1752; C1769; C9113; G0257; J0360; J0670; J0690; J0696; J1580; J1644; J2001; J2405; J2550; J2720; J3010; J3370; J3475; J3480; J3490; J7050; J7507; J7512; J7517; Q0162

== ENCOUNTER 2019-09-02 02:39 | Inpatient (IN) | payer MEDICARE ==
[2019-09-02] MEDS ORDERED: NIFEdipine XL 60 MG TAB PO SCH ×3 (03:00→10:38)
[2019-09-02 03:13] LABS: #Eosinphils 0.1 thou/uL (0.0-0.7); #Lymphocytes 1.8 thou/uL (1.20-3.40); #Neutrophils 7.4 thou/uL (1.40-6.50); %Basophils 0.4 % (0.0-1.0); %Eosinophils 1.1 % (0.0-10.0); %Lymphocytes 17.2 % (21.0-51.0); %Monocytes 9.2 % (0.0-10.0); %Neutrophils 72.1 % (42.0-75.0); Hemoglobin 11.7 g/dL (12.0-16.0); Mean Corpuscular HGB CONC 32.5 g/dL (32.0-36.0); Mean Corpuscular Volume 86.2 fL (78.0-98.0); Mean Platelet Volume 6.8 fL (7.4-10.4); Platelet Count 154 thou/uL (130-400); RBC Distribution Width 14.2 % (11.5-14.5); Red Blood Cell (RBC) Count 4.16 mill/uL (4.20-5.40); White Blood Cell (WBC) Count 10.2 thou/uL (4.8-10.8)
[2019-09-02 03:35] LABS: ALT (SGPT) 10 U/L (8-55); AST (SGOT) 14 U/L (5-34); Alkaline Phosphatase 50 U/L (40-110); Anion Gap 8 mmol/L (10-20); BUN (Urea Nitrogen) 22 mg/dL (9.8-20.1); Bilirubin, Total 0.4 mg/dL (0.2-1.2); CK (CPK) 34 U/L (29-168); Calc. Creatinine Clearance 0 mL/min (70-130); Calcium 8.9 mg/dL (7.8-10.44); Carbon Dioxide 34 mmol/L (23-31); Chloride 98 mmol/L (98-107); Estimated GFR-MDRD 20; Glucose 88 mg/dL (80-115); Potassium 4.3 mmol/L (3.5-5.1); Sodium 136 mmol/L (136-145)
[2019-09-02 03:57] LABS: CKMB 2.2 ng/mL (0-6.6)
[2019-09-02] MEDS ORDERED: hydrALAZINE 20 MG/ML VIAL ONE ×2 (04:08→04:55)
[2019-09-02] MEDS ORDERED: Acetaminophen 325 MG TAB ONE (04:31)
[2019-09-02 07:07] LABS: Troponin I 0.042 ng/mL (< 0.028)
[2019-09-02] MEDS ORDERED: hydrALAZINE 20 MG/ML VIAL SLOW IVP PRN ×2 (08:01→23:44)
[2019-09-02 08:11] VITALS: BMI 22.8
--- NOTE | 2019-09-02 08:50 | CT ---
PRELIMINARY REPORT/[facility]/EMERGENCY AFTER HOURS PROCEDURE: PROCEDURE INFORMATION: Exam: CT Head without contrast Exam date and time: 09/02/2019 2:56 AM Clinical history: 64 years old, female; Pain; Patient HX: Er 7. Headache; PT reports to er from the [facility] via EMS with C/O HTN following dialysis TECHNIQUE: Imaging protocol: Computed tomography of the head without contrast. COMPARISON: No relevant prior studies available. FINDINGS: Brain: No intracrainal hemorrhage. No midline shift. The brain parenchyma appears normal for age. Ventricles: Mild ventriculomegaly. Bones/joints: Unremarkable. No acute fracture. Sinuses: Minimal right sphenoid sinus disease Mastoid air cells: Visualized mastoid air cells are well aerated. Soft tissues: Unremarkable. IMPRESSION: No acute intracranial hemorrhage. Mild ventriculomegaly of indeterminate etiology and duration. Thank you for allowing us to participate in the care of your patient. Dictated and Authenticated by: Mayco Myrick MD 09/02/2019 3:13 AM Central Time ([place] & [place]) FINAL REPORT EMERGENT AFTER HOURS NONCONTRAST CT HEAD: HISTORY: Headache and hypertension. COMPARISON: 05/01/2019. IMPRESSION: 1. Stable dilatation of the ventricular system which is again out of proportion to the degree of sul anup atrophy. Normal pressure hydrocephalus could not be excluded. 2. Chronic small-vessel ischemic changes and mild cerebral volume loss. 3. Linear low-density area in the region of the anterior limb right internal capsule. This is only seen on a single slice selection but may represent a lacunar infarction of indeterminate age. There is no evidence of an acute cortical infarction or hemorrhage. 4. Stable sinus disease involving the right maxillary antrum. 5. Findings are in agreement with the preliminary report by [facility]. POS: OFF
[2019-09-02] MEDS ORDERED: Calcium Carbonate 500 MG ChewTAB PO PRN (08:53)
[2019-09-02] MEDS ORDERED: Nicotine 14 MG PATCH TD SCH (09:00)
[2019-09-02] MEDS ORDERED: PAROXETINE HCL 40 MG PO SCH (09:00)
[2019-09-02] MEDS ORDERED: Non-Formulary Item 1 EACH (Ferrous Sulfate [Ferrous Sulfate] 325 MG) PO SCH (09:00)
[2019-09-02] MEDS ORDERED: Gabapentin 100 MG CAP PO SCH (09:00)
[2019-09-02] MEDS ORDERED: Non-Formulary Item 1 EACH (Nifedipine 60 MG) PO SCH (09:00)
[2019-09-02] MEDS ORDERED: Nicotine 7 MG PATCH TD SCH ×2 (09:00)
--- NOTE | 2019-09-02 10:23 | HP ---
PRIMARY CARE PHYSICIAN: Audi Donnelly MD CHIEF COMPLAINT: Headache and elevated blood pressures. HISTORY OF PRESENT ILLNESS: Ms. Park is a 64-year-old female with past medical history of hypertension and end-stage renal disease, on dialysis, who had presented to the ED earlier this morning due to in the elevated blood pressure and headache that had started earlier this morning when she was at the [facility]. She was given a total of 3 doses of 0.1 mg clonidine; however, the blood pressures did not improve. Therefore, she was sent here for further management. Her blood pressure systolic was in the 220s and 230s, here she had received 3 doses of IV hydralazine 10 mg each, 60 mg of Procardia; however, blood pressure slightly improved to 177/91. Her headache also improved, and she had denied any fever, chills, headache, blurred vision, dizziness, chest pain, palpitations, shortness of breath, abdominal pain, nausea, or vomiting. She was recently discharged from the hospital last week. She was recently changed from peritoneal dialysis to hemodialysis, and she had a jugular cuffed tunneled hemodialysis catheter placed on the left per Dr. Beltre. She was later discharged to the [facility], where she has been since. She states that her primary engineering and development director, Dr. Julio, who has also been managing her hemodialysis. Her creatinine this morning was 2.44, BUN 22. Her troponin was slightly elevated at 0.034 and 0.042; however, this appears to be around her baseline. She was transferred up to the floor and blood pressures remained stable by with a BP of 181/86. No further complaints at that time. REVIEW OF SYSTEMS: All other systems reviewed and found to be negative unless mentioned in HPI. PAST MEDICAL HISTORY: Hypertension, end-stage renal disease on hemodialysis, hyperlipidemia, history of coronary artery disease with previous CA in 2005, CHF. PAST SURGICAL HISTORY: Left kidney transplant, cardiac catheterization, cholecystectomy, hysterectomy, left leg surgery, back surgery. PSYCHIATRIC HISTORY: Dementia. SOCIAL HISTORY: The patient denies alcohol or illicit drug use. She is a former smoker and quit in August 2018. KNOWN ALLERGIES: Latex and promethazine. CURRENT HOME MEDICATIONS: 1. Acetaminophen with codeine 1 tablet oral every 6 hours as needed for pain. 2. Alprazolam 1 mg p.o. b.i.d. 3. Calcitriol 0.5 mcg p.o. daily. 4. Calcium carbonate 1000 mg p.o. q.4 hours as needed for heartburn. 5. Clonidine 0.1 mg p.o. b.i.d. 6. Donepezil 5 mg p.o. daily. 7. Ferrous sulfate 325 mg p.o. b.i.d. 8. Gabapentin 300 mg p.o. b.i.d. 9. Magnesium oxide 400 mg p.o. b.i.d. 10. Nicotine patch 21 mg patch daily. 11. Nifedipine 60 mg p.o. daily. 12. Zofran 4 mg p.o. q.6 hours as needed for nausea. 13. Paroxetine 40 mg p.o. daily. 14. Prednisone 5 mg p.o. b.i.d. 15. Requip 0.5 mg p.o. at bedtime. 16. Tacrolimus 1 mg p.o. b.i.d. 17. Tizanidine 4 mg p.o. b.i.d. 18. Tramadol 50 mg p.o. q.4 hours as needed for pain. 19. Trazodone 100 mg p.o. at bedtime. PHYSICAL EXAMINATION: VITAL SIGNS: BP 181/86, pulse 65, respirations 18, temp 97.7, O2 saturation 95% on room air. GENERAL: The patient is awake, alert, and oriented x3. She is currently lying comfortably in bed and in no acute distress. HEENT: Atraumatic and normocephalic. Pupils are round and reactive to light. Extraocular muscles intact. Moist mucous membranes noted. NECK: Soft and supple. Trachea midline. CARDIOVASCULAR: Positive S1 and S2. She appears to have a 2/6 systolic murmur noted. She also has a left internal jugular tunneled catheter placed. RESPIRATORY: Clear to auscultation bilaterally. No wheezes, rales, or rhonchi. ABDOMEN: Soft, nontender. Bowel sounds present. EXTREMITIES: Moves all extremities equal. Pedal and radial pulses 2+ bilaterally. No edema noted. NEUROLOGIC: Cranial nerves 2 through 12 grossly intact. No focal deficits noted. Speech intact and normal. Gait not assessed. SKIN: Warm, dry, and intact. No rashes. No ulceration noted. The patient does appear to have some diffuse bruising in upper extremities. PSYCHIATRIC: Good mood and affect. LABORATORY DATA: WBC 10.2, RBC 4.16, hemoglobin 11.7, hematocrit 35.9, platelet 154. Sodium 136, potassium 4.3, anion gap 8, BUN 22, creatinine 2.44, estimated GFR 20, glucose 88, AST 14, ALT 10, CK-MB 2.2, troponin 0.034 and 0.042. DIAGNOSTIC IMAGING STUDIES: CT brain without contrast showed chronic small-vessel changes with mild cerebral volume loss. ASSESSMENT/PLAN: 1. Hypertensive urgency. Blood pressures are slowly coming down. We will restart on her home regimen and monitor her blood pressure and other vital signs closely. We will adjust her home medication as needed. We have also placed consult for Dr. Julio for further management and to continue her dialysis schedule. 2. History of end-stage renal disease, currently on hemodialysis. As above, consult placed for Dr. Julio. 3. Hypertension. Continue home regimen, and as above, monitor blood pressure and other vital signs closely. 4. History of congestive heart failure, currently stable at this time and she remains asymptomatic. Continue home regimen. 5. History of dementia. 6. Deep venous thrombosis and gastrointestinal prophylaxis. 7. Code status, full code. DISPOSITION: Pending further workup and clinical findings. Job ID: [id number]
[2019-09-02] MEDS: ALPRAZolam 0.5 MG TAB PO SCH ×2 (10:30→20:12)
[2019-09-02] MEDS: predniSONE 5 MG TAB PO SCH ×2 (10:31→20:13)
[2019-09-02] MEDS: Calcitriol 0.25 MCG CAP PO SCH (10:31)
[2019-09-02] MEDS: Gabapentin 300 MG CAP PO SCH ×2 (10:32→20:12)
[2019-09-02] MEDS: Magnesium Oxide 400 MG TAB PO SCH ×2 (10:32→20:13)
[2019-09-02] MEDS: Nicotine 14 MG PATCH TD SCH (10:32)
[2019-09-02] MEDS: Donepezil HCl 5 MG TAB PO SCH (10:32)
[2019-09-02] MEDS: Ferrous Sulfate 325 MG TAB PO SCH ×2 (10:32→20:12)
[2019-09-02] MEDS: PARoxetine 20 MG TAB PO SCH (10:32)
[2019-09-02] MEDS: cloNIDine 0.1 MG TAB PO SCH ×2 (10:33→20:11)
[2019-09-02] MEDS: Tacrolimus 1 MG CAP PO SCH ×2 (10:34→20:12)
[2019-09-02] MEDS ORDERED: NIFEdipine XL 90 MG TAB PO SCH (10:45)
--- NOTE | 2019-09-02 10:55 | PRG ---
DATE OF SERVICE: 09/02/2019 SUBJECTIVE: Ms. Park is a 64-year-old white female with known history of ESRD, currently on backup hemodialysis. She is admitted for labile hypertension. Please note that the patient was here last month due to a peritonitis. The PD catheter was subsequently removed. Currently, she is on backup hemodialysis. She was admitted due to poorly controlled blood pressure. She was seen at the ER, she was given 3 doses of IV hydralazine, which improved the patient's blood pressure. No new complaints today. No chest pain or shortness of breath. No nausea. No vomiting. She has some mild swelling around the elbow. No fever or chills. No diarrhea. No constipation. Appetite and energy level are fair. No productive cough. OBJECTIVE: VITAL SIGNS: Blood pressure is noted at 151/72 with a heart rate of 60, respiratory rate 12. GENERAL: Awake, alert, supine, comfortable, not in distress. SKIN: Adequate turgor. HEENT: Pinkish conjunctivae. Anicteric sclerae. No neck mass. No carotid bruits. No JVD. CHEST: No deformities. LUNGS: Clear breath sounds. No wheezing. No crackles. HEART: Normal sinus rhythm. No murmur. No gallops. No rubs. ABDOMEN: Globular, soft, and nontender. No masses. EXTREMITIES: No edema. No deformities. MEDICATIONS: Medications of September 02, 2019, was reviewed. LABORATORY DATA: Laboratories of September 02, 2019; white count 10.2 and hemoglobin 11.7. Sodium 136, potassium 4.3, chloride 98, carbon dioxide 34, BUN 22, and creatinine 2.44. AST 14, ALT 10, and albumin 3. ASSESSMENT AND PLAN: 1. Labile hypertension. Continue her BP medications. However, we will increase nifedipine from 60 to 90 mg XL tablet once a day. 2. End-stage renal disease, stable. No indication for any emergent hemodialysis. She received dialysis yesterday. We will continue current Wednesday, Wednesday, and Wednesday dialysis with this patient. 3. Agree with current management. Job ID: [id number]
[2019-09-02] MEDS: Bisacodyl 5 MG TAB PO PRN (11:34)
[2019-09-02 12:26] LABS: Troponin I 0.052 ng/mL (< 0.028)
[2019-09-02] MEDS: traMADol HCl 50 MG TAB PO PRN ×3 (13:56→23:35)
[2019-09-02] MEDS: rOPINIRole HCl 0.25 MG TAB PO SCH (20:10)
[2019-09-02] MEDS: traZODone HCl 50 MG TAB PO SCH (20:11)
[2019-09-02] MEDS ORDERED: Non-Formulary Item 1 EACH (Trazodone Hcl [Trazodone Hcl] 100 MG) PO SCH (21:00)
[2019-09-03] MEDS: cloNIDine 0.1 MG TAB PO PRN (01:19)
[2019-09-03] MEDS: Acetaminophen 325 MG TAB PO PRN ×2 (01:19→13:59)
[2019-09-03] MEDS ORDERED: hydrALAZINE 20 MG/ML VIAL SLOW IVP SCH (02:30)
[2019-09-03] MEDS: Ondansetron ODT 4 MG TAB PO PRN ×2 (02:31→14:04)
[2019-09-03] MEDS: Nitroglycerin 2% Ointment 1 INCH/1 GM Packet TOP SCH ×2 (03:38→20:52)
[2019-09-03] MEDS ORDERED: Labetalol HCl 100 MG/20 ML VIAL SLOW IVP SCH (05:30)
[2019-09-03 05:55] LABS: #Eosinphils 0.1 thou/uL (0.0-0.7); #Lymphocytes 1.6 thou/uL (1.20-3.40); #Monocytes 0.8 thou/uL (0.11-0.59); #Neutrophils 10.8 thou/uL (1.40-6.50); %Basophils 0.2 % (0.0-1.0); %Eosinophils 0.4 % (0.0-10.0); %Lymphocytes 12.1 % (21.0-51.0); %Monocytes 5.9 % (0.0-10.0); %Neutrophils 81.4 % (42.0-75.0); Hemoglobin 13.5 g/dL (12.0-16.0); Mean Corpuscular HGB CONC 32.9 g/dL (32.0-36.0); Mean Corpuscular Hemoglobin 28.2 pg (27.0-31.0); Mean Corpuscular Volume 85.5 fL (78.0-98.0); Mean Platelet Volume 7.6 fL (7.4-10.4); Platelet Count 202 thou/uL (130-400); RBC Distribution Width 14.7 % (11.5-14.5); White Blood Cell (WBC) Count 13.2 thou/uL (4.8-10.8)
[2019-09-03 06:18] LABS: Anion Gap 14 mmol/L (10-20); BUN (Urea Nitrogen) 33 mg/dL (9.8-20.1); Calc. Creatinine Clearance 14 mL/min (70-130); Calcium 9.3 mg/dL (7.8-10.44); Carbon Dioxide 26 mmol/L (23-31); Chloride 100 mmol/L (98-107); Estimated GFR-MDRD 13; Glucose 101 mg/dL (80-115); Potassium 4.6 mmol/L (3.5-5.1); Sodium 135 mmol/L (136-145)
[2019-09-03] MEDS ORDERED: Ondansetron PF 4 MG/2 ML Vial IVP SCH (07:15)
[2019-09-03] MEDS ORDERED: hydrALAZINE 20 MG/ML VIAL SLOW IVP PRN (07:39)
[2019-09-03] MEDS: cloNIDine 0.1 MG TAB PO SCH ×2 (08:06→20:29)
[2019-09-03] MEDS: PARoxetine 20 MG TAB PO SCH (08:06)
[2019-09-03] MEDS: NIFEdipine XL 90 MG TAB PO SCH (08:06)
[2019-09-03] MEDS: Calcitriol 0.25 MCG CAP PO SCH (08:06)
[2019-09-03] MEDS: Donepezil HCl 5 MG TAB PO SCH (08:06)
[2019-09-03] MEDS: Ferrous Sulfate 325 MG TAB PO SCH ×2 (08:06→20:28)
[2019-09-03] MEDS: Magnesium Oxide 400 MG TAB PO SCH ×2 (08:07→20:28)
[2019-09-03] MEDS: Gabapentin 300 MG CAP PO SCH ×2 (08:07→20:29)
[2019-09-03] MEDS: Nicotine 14 MG PATCH TD SCH (08:07)
[2019-09-03] MEDS: predniSONE 5 MG TAB PO SCH ×2 (08:07→20:28)
[2019-09-03] MEDS: ALPRAZolam 0.5 MG TAB PO SCH ×2 (08:07→20:28)
[2019-09-03] MEDS: Tacrolimus 1 MG CAP PO SCH (08:07)
--- NOTE | 2019-09-03 10:05 | PRG ---
DATE OF SERVICE: 09/03/2019 SUBJECTIVE: Ms. Park is a 64-year-old white female with ESRD and admitted for labile hypertension. The patient's blood pressure is still elevated. Adjustment with her BP medications has been done. She had some nausea and vomited some of her BP medications this morning. My plan is to at least place her on a TTS-1 patch q.week. No other complaints. No chest pain or shortness of breath. OBJECTIVE: VITAL SIGNS: Blood pressure is 185/81, heart rate 70, respiratory rate 16, O2 saturation 94%, temperature 97.4. GENERAL: Noted to be awake, alert, comfortable, not in overt distress. SKIN: Adequate turgor. HEENT: Pinkish conjunctivae. Anicteric sclerae. NECK: No neck mass. No carotid bruits. No JVD. CHEST: No deformities. LUNGS: Clear breath sounds. HEART: Normal sinus rhythm. No murmur. No gallops. No rubs. ABDOMEN: Globular, soft, nontender. No masses. EXTREMITIES: No edema. No deformities. MEDICATIONS: Medications of September 03, 2019, was reviewed. LABORATORY DATA: Laboratories of September 03, 2019, white count 13.2, hemoglobin 13.5. Sodium 135, potassium 4.6, chloride 100, carbon dioxide 26, BUN 33, creatinine 3.65, glucose 101, and calcium 9.3. ASSESSMENT AND PLAN: 1. End-stage renal disease, stable. We will continue current Wednesday, Wednesday, and Wednesday hemodialysis regimen. No indication for any emergent hemodialysis today. 2. Status post failed renal transplant-we will taper tacrolimus to once a day dosing. Over the next several weeks consider further tapering of this, it can be discontinued. Prednisone will remain as it. 3. Labile hypertension. Clonidine TTS-1 patch was added. Continue current BP medications as tolerated. 4. We will recheck basic metabolic panel and CBC in a.m. Job ID: [id number]
[2019-09-03] MEDS: Labetalol HCl 100 MG/20 ML VIAL SLOW IVP PRN (10:29)
[2019-09-03] MEDS: traMADol HCl 50 MG TAB PO PRN ×2 (12:23→18:11)
--- NOTE | 2019-09-03 15:47 | PDOC.HOSPP ---
- Subjective Subjective: Feeling some better today. Has had some headache today that was fairly severe, but a little better now. Not uncommon for her. - Objective Vital Signs & Weight: Vital Signs (12 hours) Temp Pulse Resp BP BP Pulse Ox 09/03/19 11:27 98.1 F 59 L 18 118/59 L 94 L 09/03/19 10:29 70 185/70 H 09/03/19 09:22 70 185/81 H 09/03/19 08:06 80 210/98 H 09/03/19 07:30 97.4 F L 60 16 210/98 H 94 L 09/03/19 06:20 80 232/107 H 09/03/19 06:14 232/107 H 09/03/19 04:35 97.7 F 80 20 236/101 H 95 09/03/19 04:08 234/110 H Weight Weight 121 lb 1.6 oz I&O: 09/02/19 09/03/19 09/04/19 06:59 06:59 06:59 Intake Total 960 Output Total 400 Balance 560 Result Diagrams: 09/03/19 05:06 09/03/19 05:06 Hospitalist ROS - Medication Medications: Active Medications Generic Name Dose Route Start Last Admin Trade Name Freq PRN Reason Stop Dose Admin Acetaminophen 650 mg 09/03/19 01:14 09/03/19 13:59 Tylenol PO 650 mg Q8H PRN Administration Headache/Fever/MILD Pain 1-3 Alprazolam 1 mg 09/02/19 09:00 09/03/19 08:07 Xanax PO 1 mg BID RAGHU Administration Bisacodyl 5 mg 09/02/19 11:10 09/02/19 11:34 Dulcolax PO 5 mg DAILYPRN PRN Administration Constipation Calcitriol 0.5 mcg 09/02/19 09:00 09/03/19 08:06 Rocaltrol PO 0.5 mcg DAILY RAGHU Administration Clonidine 0.1 mg 09/02/19 09:00 09/03/19 08:06 Catapres PO 0.1 mg BID RAGHU Administration Clonidine 0.1 mg 09/03/19 01:12 09/03/19 01:19 Catapres PO 0.1 mg Q4H PRN Administration Hypertension Clonidine 0.1 mg 09/10/19 09:00 09/03/19 10:28 Wbevbtht-Ure-2 Patch TD 0.1 mg Q7DAYS RAGHU Administration Donepezil HCl 5 mg 09/02/19 09:00 09/03/19 08:06 Aricept PO 5 mg DAILY RAGHU Administration Ferrous Sulfate 325 mg 09/02/19 09:00 09/03/19 08:06 Feosol PO 325 mg BID RAGHU Administration Gabapentin 300 mg 09/02/19 09:00 09/03/19 08:07 Neurontin PO 300 mg BID RAGHU Administration Labetalol HCl 20 mg 09/03/19 09:57 09/03/19 10:29 Normodyne SLOW IVP 20 mg Q4H PRN Administration SBP > 185, DBP > 105 Magnesium Oxide 400 mg 09/02/19 09:00 09/03/19 08:07 Magnesium Oxide PO 400 mg BID RAGHU Administration Nicotine 14 mg 09/02/19 09:00 09/03/19 08:07 Nicoderm Patch TD 14 mg DAILY RAGHU Administration Nifedipine 90 mg 09/03/19 09:00 09/03/19 08:06 Procardia Xl PO 90 mg DAILY RAGHU Administration Nitroglycerin 1 inch 09/03/19 09:00 09/03/19 03:38 Nitro-Bid 2% Ointment TOP 1 inch BID RAGHU Administration Ondansetron HCl 4 mg 09/02/19 08:53 09/03/19 14:04 Zofran Odt PO 4 mg Q6H PRN Administration Nausea/Vomiting Paroxetine HCl 40 mg 09/02/19 09:00 09/03/19 08:06 Paxil PO 40 mg DAILY RAGHU Administration Prednisone 5 mg 09/02/19 09:00 09/03/19 08:07 Prednisone PO 5 mg BID RAGHU Administration Ropinirole HCl 0.5 mg 09/02/19 21:00 09/02/19 20:10 Requip PO 0.5 mg HS RAGHU Administration Sodium Chloride 10 ml 09/02/19 09:00 09/03/19 08:08 Flush - Normal Saline IVF 10 ml Q12HR RAGHU Administration Tramadol HCl 50 mg 09/02/19 08:53 09/03/19 12:23 Ultram PO 50 mg Q4H PRN Administration MILD TO MODERATE Pain Trazodone HCl 100 mg 09/02/19 21:00 09/02/19 20:11 Desyrel PO 100 mg HS RAGHU Administration - Exam General Appearance: NAD General - other findings: Easily awakened. Still a little groggy. Neck: supple, symmetric, no JVD, no thyromegaly, no lymphadenopathy, no carotid bruit Heart: RRR, no murmur, no gallops, no rubs, normal peripheral pulses Respiratory: CTAB, no wheezes, no rales, no ronchi, normal chest expansion, no tachypnea, normal percussion Gastrointestinal: soft, non-tender, non-distended, normal bowel sounds, no palpable masses, no hepatomegaly, no splenomegaly, no bruit Extremities: no cyanosis, no edema Skin: normal turgor Musculoskeletal: normal tone Psychiatric: normal affect, normal behavior, A&O x 3 Hosp A/P (1) Acute metabolic encephalopathy Code(s): G93.41 - METABOLIC ENCEPHALOPATHY Status: Acute (2) ESRD (end stage renal disease) on dialysis Code(s): N18.6 - END STAGE RENAL DISEASE; Z99.2 - DEPENDENCE ON RENAL DIALYSIS Status: Acute (3) Hypertensive urgency Code(s): I16.0 - HYPERTENSIVE URGENCY Status: Acute (4) Nausea & vomiting Code(s): R11.2 - NAUSEA WITH VOMITING, UNSPECIFIED Status: Acute (5) Asthma Code(s): J45.909 - UNSPECIFIED ASTHMA, UNCOMPLICATED Status: Chronic Qualifiers: Asthma severity: unspecified severity (6) CAD (coronary artery disease) Code(s): I25.10 - ATHSCL HEART DISEASE OF [place] CORONARY ARTERY W/O ANG PCTRS Status: Chronic Qualifiers: Coronary Disease-Associated Artery/Lesion type: [place] artery [place] vs. transplanted heart: [place] heart Associated angina: without angina Qualified Code(s): I25.10 - Atherosclerotic heart disease of [place] coronary artery without angina pectoris (7) COPD (chronic obstructive pulmonary disease) Status: Chronic Qualifiers: COPD type: chronic bronchitis (8) Chronic anemia Code(s): D64.9 - ANEMIA, UNSPECIFIED Status: Chronic - Plan Had more severe headache this morning with n/v. BP was very high. Now it is better and she is feeling better. Appears to respond to the Labetalol best. Continue PRN. Will continue to monitor through HD tomorrow. May need to increase PO meds.
[2019-09-03] MEDS ORDERED: Ondansetron ODT 4 MG TAB PO PRN (18:58)
[2019-09-03] MEDS: traZODone HCl 50 MG TAB PO SCH (20:28)
[2019-09-03] MEDS: rOPINIRole HCl 0.25 MG TAB PO SCH (20:29)
[2019-09-04] MEDS: Labetalol HCl 100 MG/20 ML VIAL SLOW IVP PRN (04:10)
[2019-09-04] MEDS: traMADol HCl 50 MG TAB PO PRN ×3 (05:21→20:57)
[2019-09-04] MEDS: tiZANidine HCl 4 MG TAB PO PRN ×2 (05:21→20:56)
[2019-09-04] MEDS: cloNIDine 0.1 MG TAB PO PRN (05:21)
[2019-09-04 05:34] LABS: Anion Gap 11 mmol/L (10-20); BUN (Urea Nitrogen) 37 mg/dL (9.8-20.1); Calc. Creatinine Clearance 10 mL/min (70-130); Calcium 8.3 mg/dL (7.8-10.44); Carbon Dioxide 27 mmol/L (23-31); Chloride 100 mmol/L (98-107); Estimated GFR-MDRD 9; Glucose 90 mg/dL (80-115); Potassium 4.9 mmol/L (3.5-5.1); Sodium 133 mmol/L (136-145)
[2019-09-04] MEDS: Ferrous Sulfate 325 MG TAB PO SCH ×2 (09:00→20:57)
[2019-09-04] MEDS: ALPRAZolam 0.5 MG TAB PO SCH ×2 (09:00→20:56)
[2019-09-04] MEDS: cloNIDine 0.1 MG TAB PO SCH ×2 (09:00→20:57)
[2019-09-04] MEDS: Calcitriol 0.25 MCG CAP PO SCH (09:00)
[2019-09-04] MEDS: Donepezil HCl 5 MG TAB PO SCH (09:00)
[2019-09-04] MEDS: Gabapentin 300 MG CAP PO SCH ×2 (09:01→20:57)
[2019-09-04] MEDS: predniSONE 5 MG TAB PO SCH ×2 (09:01→20:57)
[2019-09-04] MEDS: PARoxetine 20 MG TAB PO SCH (09:01)
[2019-09-04] MEDS: Magnesium Oxide 400 MG TAB PO SCH ×2 (09:01→20:57)
[2019-09-04] MEDS: NIFEdipine XL 90 MG TAB PO SCH (09:01)
[2019-09-04] MEDS: Minoxidil 2.5 MG TAB PO SCH (09:01)
[2019-09-04] MEDS: Tacrolimus 1 MG CAP PO SCH (09:02)
[2019-09-04] MEDS: Nitroglycerin 2% Ointment 1 INCH/1 GM Packet TOP SCH ×2 (09:02→23:55)
[2019-09-04] MEDS: Nicotine 14 MG PATCH TD SCH (09:44)
--- NOTE | 2019-09-04 09:55 | PRG ---
DATE OF SERVICE: 09/04/2019 SERVICE: Renal Medicine. SUBJECTIVE: Ms. Park is a 64-year-old white female with known history of ESRD, on maintenance hemodialysis; admitted for labile hypertension. Blood pressure is still not well controlled. Adjustment with BP medications done in the last few days. The plan is to start her on a low-dose minoxidil 2.5 mg tablet once a day and increase as needed. No new complaints today. No chest pain or shortness of breath. OBJECTIVE: VITAL SIGNS: Blood pressure is 188/86, heart rate is 71, respiratory rate 20, temperature 97.9, and pulse ox is 96% on room air. GENERAL: Awake, alert, comfortable, not in distress. SKIN: Adequate turgor. HEENT: She has pinkish conjunctivae. Anicteric sclerae. NECK: No neck mass. No carotid bruits. No JVD. CHEST: No deformities. LUNGS: Clear breath sounds. HEART: Normal sinus rhythm. No murmurs. No gallops. No rubs. ABDOMEN: Globular, soft, and nontender. No masses. EXTREMITIES: No edema. No deformities. MEDICATIONS: Medications of September 04, 2019, reviewed. LABORATORY DATA: Laboratories of September 03, 2019: White count 13.2, hemoglobin 13.5. On September 04, 2019, sodium 133, potassium 4.9, chloride 100, carbon dioxide 27, BUN 37, creatinine 4.72, and calcium 8.3. ASSESSMENT AND PLAN: 1. Labile hypertension. We will add minoxidil 2.5 mg tablet daily. Increase as needed. Max out fluid removal with dialysis. 2. End-stage renal disease, stable. We will continue current Wednesday, Wednesday, and Wednesday hemodialysis. Fluid removal as tolerated. 3. Status post failed renal transplant - tacrolimus has been adjusted downwards. She is now currently taking it once a day. Over time, we plan to completely discontinue this. We will leave the current dose of prednisone as is. Job ID: [id number]
--- NOTE | 2019-09-04 15:21 | PDOC.HOSPP ---
- Subjective Encounter Date: 09/04/19 Encounter Time: 15:19 Subjective: still has VASQUEZ - Objective Vital Signs & Weight: Vital Signs (12 hours) Temp Pulse Resp BP BP Pulse Ox 09/04/19 10:06 178/81 H 09/04/19 09:01 60 213/91 H 09/04/19 09:00 213/91 H 09/04/19 07:53 97.9 F 60 22 H 213/91 H 99 09/04/19 06:37 60 177/84 H 09/04/19 06:33 63 186/84 H 09/04/19 05:21 183/84 H 09/04/19 04:50 62 189/88 H 09/04/19 04:10 61 188/86 H 09/04/19 03:50 97.9 F 71 20 194/87 H 96 Weight Weight 118 lb 4.8 oz I&O: 09/03/19 09/04/19 09/05/19 06:59 06:59 06:59 Intake Total 960 980 Output Total 400 600 250 Balance 560 380 -250 Result Diagrams: 09/03/19 05:06 09/04/19 04:49 Hospitalist ROS - Medication Medications: Active Medications Generic Name Dose Route Start Last Admin Trade Name Freq PRN Reason Stop Dose Admin Acetaminophen 650 mg 09/03/19 01:14 09/03/19 13:59 Tylenol PO 650 mg Q8H PRN Administration Headache/Fever/MILD Pain 1-3 Alprazolam 1 mg 09/02/19 09:00 09/04/19 09:00 Xanax PO 1 mg BID RAGHU Administration Bisacodyl 5 mg 09/02/19 11:10 09/02/19 11:34 Dulcolax PO 5 mg DAILYPRN PRN Administration Constipation Calcitriol 0.5 mcg 09/02/19 09:00 09/04/19 09:00 Rocaltrol PO 0.5 mcg DAILY RAGHU Administration Clonidine 0.1 mg 09/02/19 09:00 09/04/19 09:00 Catapres PO 0.1 mg BID RAGHU Administration Clonidine 0.1 mg 09/03/19 01:12 09/04/19 05:21 Catapres PO 0.1 mg Q4H PRN Administration Hypertension Clonidine 0.1 mg 09/10/19 09:00 09/03/19 10:28 Avtdhyss-Utf-5 Patch TD 0.1 mg Q7DAYS RAGHU Administration Donepezil HCl 5 mg 09/02/19 09:00 09/04/19 09:00 Aricept PO 5 mg DAILY RAGHU Administration Ferrous Sulfate 325 mg 09/02/19 09:00 09/04/19 09:00 Feosol PO 325 mg BID RAGHU Administration Gabapentin 300 mg 09/02/19 09:00 09/04/19 09:01 Neurontin PO 300 mg BID RAGHU Administration Labetalol HCl 20 mg 09/03/19 09:57 09/04/19 04:10 Normodyne SLOW IVP 20 mg Q4H PRN Administration SBP > 185, DBP > 105 Magnesium Oxide 400 mg 09/02/19 09:00 09/04/19 09:01 Magnesium Oxide PO 400 mg BID RAGHU Administration Minoxidil 2.5 mg 09/04/19 09:00 09/04/19 09:01 Minoxidil PO 2.5 mg DAILY RAGHU Administration Nicotine 14 mg 09/02/19 09:00 09/04/19 09:44 Nicoderm Patch TD 14 mg DAILY RAGHU Administration Nifedipine 90 mg 09/03/19 09:00 09/04/19 09:01 Procardia Xl PO 90 mg DAILY RAGHU Administration Nitroglycerin 1 inch 09/03/19 09:00 09/04/19 09:02 Nitro-Bid 2% Ointment TOP 1 inch BID RAGHU Administration Ondansetron HCl 4 mg 09/03/19 18:58 09/03/19 19:18 Zofran Odt PO 4 mg Q4H PRN Administration Nausea/Vomiting Paroxetine HCl 40 mg 09/02/19 09:00 09/04/19 09:01 Paxil PO 40 mg DAILY RAGHU Administration Prednisone 5 mg 09/02/19 09:00 09/04/19 09:01 Prednisone PO 5 mg BID RAGHU Administration Ropinirole HCl 0.5 mg 09/02/19 21:00 09/03/19 20:29 Requip PO 0.5 mg HS RAGHU Administration Sodium Chloride 10 ml 09/02/19 09:00 09/04/19 09:02 Flush - Normal Saline IVF 10 ml Q12HR RAGHU Administration Tacrolimus 1 mg 09/04/19 09:00 09/04/19 09:02 Prograf PO 1 mg DAILY RAGHU Administration Tizanidine HCl 4 mg 09/02/19 08:53 09/04/19 05:21 Zanaflex PO 4 mg BID PRN Administration muscle spasms Tramadol HCl 50 mg 09/02/19 08:53 09/04/19 15:11 Ultram PO 50 mg Q4H PRN Administration MILD TO MODERATE Pain Trazodone HCl 100 mg 09/02/19 21:00 09/03/19 20:28 Desyrel PO 100 mg HS RAGHU Administration - Exam General Appearance: awake alert Neck: no JVD Heart: RRR, murmur present, III/IV Respiratory: CTAB Gastrointestinal: soft, normal bowel sounds Extremities: 1+ LE edema Hosp A/P (1) Acute metabolic encephalopathy Code(s): G93.41 - METABOLIC ENCEPHALOPATHY Status: Acute (2) ESRD (end stage renal disease) on dialysis Code(s): N18.6 - END STAGE RENAL DISEASE; Z99.2 - DEPENDENCE ON RENAL DIALYSIS Status: Chronic (3) Hypertensive urgency Code(s): I16.0 - HYPERTENSIVE URGENCY Status: Acute (4) Asthma Code(s): J45.909 - UNSPECIFIED ASTHMA, UNCOMPLICATED Status: Chronic Qualifiers: Asthma severity: unspecified severity (5) CAD (coronary artery disease) Code(s): I25.10 - ATHSCL HEART DISEASE OF [place] CORONARY ARTERY W/O ANG PCTRS Status: Chronic Qualifiers: Coronary Disease-Associated Artery/Lesion type: [place] artery [place] vs. transplanted heart: [place] heart Associated angina: without angina Qualified Code(s): I25.10 - Atherosclerotic heart disease of [place] coronary artery without angina pectoris (6) Sleep apnea Code(s): G47.30 - SLEEP APNEA, UNSPECIFIED Status: Chronic Qualifiers: Sleep apnea type: unspecified type Qualified Code(s): G47.30 - Sleep apnea , unspecified (7) Tobacco use Code(s): Z72.0 - TOBACCO USE Status: Chronic - Plan post HD starting minoxidyl cont r chronic home meds drug screen
[2019-09-04 19:21] LABS: Amphetamine Not Detected (NotDetected); Barbiturates Screen Not Detected (NotDetected); Benzodiazepine Screen Detected (NotDetected); Cocaine Metabolite Screen Not Detected (NotDetected); Medtox Control Line Valid? VALID (VALID); Medtox Reader # READER 1; Methadone Not Detected (NotDetected); Methamphetamine Not Detected (NotDetected); Opiate Screen Detected (NotDetected); Oxycodone Screen Not Detected (NotDetected); Phencyclidine (PCP) Not Detected (NotDetected); THC/Cannabinoid Screen Not Detected (NotDetected); Tricyclic Screen Not Detected (NotDetected)
[2019-09-04] MEDS: traZODone HCl 50 MG TAB PO SCH (20:56)
[2019-09-04] MEDS: rOPINIRole HCl 0.25 MG TAB PO SCH (20:56)
[2019-09-04] MEDS: Bisacodyl 5 MG TAB PO PRN (20:57)
--- NOTE | 2019-09-05 07:10 | PDOC.HOSPP ---
- Objective Vital Signs & Weight: Vital Signs (12 hours) Temp Pulse Resp BP BP Pulse Ox 09/05/19 03:16 97.4 F L 58 L 16 159/76 H 94 L 09/05/19 00:58 58 L 175/83 H 09/04/19 23:58 182/86 H 09/04/19 23:35 97.6 F 61 18 184/81 H 94 L 09/04/19 20:57 162/74 H 09/04/19 19:20 97.9 F 60 16 153/71 H 96 Weight Weight 118 lb 4.8 oz I&O: 09/04/19 09/05/19 09/06/19 06:59 06:59 06:59 Intake Total 980 800 Output Total 600 550 Balance 380 250 Result Diagrams: 09/03/19 05:06 09/04/19 04:49 Hospitalist ROS - Medication Medications: Active Medications Generic Name Dose Route Start Last Admin Trade Name Freq PRN Reason Stop Dose Admin Acetaminophen 650 mg 09/03/19 01:14 09/03/19 13:59 Tylenol PO 650 mg Q8H PRN Administration Headache/Fever/MILD Pain 1-3 Alprazolam 1 mg 09/02/19 09:00 09/04/19 20:56 Xanax PO 1 mg BID RAGHU Administration Bisacodyl 5 mg 09/02/19 11:10 09/04/19 20:57 Dulcolax PO 5 mg DAILYPRN PRN Administration Constipation Calcitriol 0.5 mcg 09/02/19 09:00 09/04/19 09:00 Rocaltrol PO 0.5 mcg DAILY RAGHU Administration Clonidine 0.1 mg 09/02/19 09:00 09/04/19 20:57 Catapres PO 0.1 mg BID RAGHU Administration Clonidine 0.1 mg 09/03/19 01:12 09/04/19 05:21 Catapres PO 0.1 mg Q4H PRN Administration Hypertension Clonidine 0.1 mg 09/10/19 09:00 09/03/19 10:28 Wpollfdr-Hoh-1 Patch TD 0.1 mg Q7DAYS RAGHU Administration Donepezil HCl 5 mg 09/02/19 09:00 09/04/19 09:00 Aricept PO 5 mg DAILY RAGHU Administration Ferrous Sulfate 325 mg 09/02/19 09:00 09/04/19 20:57 Feosol PO 325 mg BID RAGHU Administration Gabapentin 300 mg 09/02/19 09:00 09/04/19 20:57 Neurontin PO 300 mg BID RAGHU Administration Labetalol HCl 20 mg 09/03/19 09:57 09/04/19 04:10 Normodyne SLOW IVP 20 mg Q4H PRN Administration SBP > 185, DBP > 105 Magnesium Oxide 400 mg 09/02/19 09:00 09/04/19 20:57 Magnesium Oxide PO 400 mg BID RAGHU Administration Minoxidil 2.5 mg 09/04/19 09:00 09/04/19 09:01 Minoxidil PO 2.5 mg DAILY RAGHU Administration Nicotine 14 mg 09/02/19 09:00 09/04/19 09:44 Nicoderm Patch TD 14 mg DAILY RAGHU Administration Nifedipine 90 mg 09/03/19 09:00 09/04/19 09:01 Procardia Xl PO 90 mg DAILY RAGHU Administration Nitroglycerin 1 inch 09/03/19 09:00 09/04/19 23:55 Nitro-Bid 2% Ointment TOP 1 inch BID RAGHU Administration Ondansetron HCl 4 mg 09/03/19 18:58 09/03/19 19:18 Zofran Odt PO 4 mg Q4H PRN Administration Nausea/Vomiting Paroxetine HCl 40 mg 09/02/19 09:00 09/04/19 09:01 Paxil PO 40 mg DAILY RAGHU Administration Prednisone 5 mg 09/02/19 09:00 09/04/19 20:57 Prednisone PO 5 mg BID RAGHU Administration Ropinirole HCl 0.5 mg 09/02/19 21:00 09/04/19 20:56 Requip PO 0.5 mg HS RAGHU Administration Sodium Chloride 10 ml 09/02/19 09:00 09/04/19 20:58 Flush - Normal Saline IVF 10 ml Q12HR RAGHU Administration Tacrolimus 1 mg 09/04/19 09:00 09/04/19 09:02 Prograf PO 1 mg DAILY RAGHU Administration Tizanidine HCl 4 mg 09/02/19 08:53 09/04/19 20:56 Zanaflex PO 4 mg BID PRN Administration muscle spasms Tramadol HCl 50 mg 09/02/19 08:53 09/04/19 20:57 Ultram PO 50 mg Q4H PRN Administration MILD TO MODERATE Pain Trazodone HCl 100 mg 09/02/19 21:00 09/04/19 20:56 Desyrel PO 100 mg HS RAGHU Administration Hosp A/P (1) Acute metabolic encephalopathy Code(s): G93.41 - METABOLIC ENCEPHALOPATHY Status: Acute (2) ESRD (end stage renal disease) on dialysis Code(s): N18.6 - END STAGE RENAL DISEASE; Z99.2 - DEPENDENCE ON RENAL DIALYSIS Status: Chronic (3) Hypertensive urgency Code(s): I16.0 - HYPERTENSIVE URGENCY Status: Acute (4) CAD (coronary artery disease) Code(s): I25.10 - ATHSCL HEART DISEASE OF [place] CORONARY ARTERY W/O ANG PCTRS Status: Chronic Qualifiers: Coronary Disease-Associated Artery/Lesion type: [place] artery [place] vs. transplanted heart: [place] heart Associated angina: without angina Qualified Code(s): I25.10 - Atherosclerotic heart disease of [place] coronary artery without angina pectoris (5) Asthma Code(s): J45.909 - UNSPECIFIED ASTHMA, UNCOMPLICATED Status: Chronic Qualifiers: Asthma severity: unspecified severity (6) Sleep apnea Code(s): G47.30 - SLEEP APNEA, UNSPECIFIED Status: Chronic Qualifiers: Sleep apnea type: unspecified type Qualified Code(s): G47.30 - Sleep apnea , unspecified (7) Tobacco use Code(s): Z72.0 - TOBACCO USE Status: Chronic - Plan post HD starting minoxidyl cont r chronic home meds drug screen
--- NOTE | 2019-09-05 07:56 | DIS ---
DATE OF ADMISSION: 09/04/2019 DATE OF DISCHARGE: 09/05/2019 PRIMARY CARE PHYSICIAN: Audi Donnelly MD DISPOSITION: Discharged back to [facility]. FINAL DIAGNOSES: 1. Metabolic encephalopathy. 2. End-stage renal disease. 3. Hypertensive urgency. 4. Coronary artery disease. 5. Renal graft rejection. 6. History of kidney transplant. 7. Tobacco use. DISCHARGE MEDICATIONS: In addition to her prehospitalization medicines, minoxidil 2.5 mg p.o. daily is added. She takes; 1. Aricept 5 mg a day. 2. Trazodone 100 mg at bedtime. 3. Tizanidine 4 mg b.i.d. p.r.n. 4. Requip 0.5 mg at bedtime. 5. Prograf 1 mg twice a day. 6. Nifedipine XL 60 mg a day. 7. Prednisone 5 mg twice a day. 8. Paxil 40 mg a day. 9. Catapres 0.1 mg twice a day. 10. Neurontin 300 mg twice a day. 11. Ferrous sulfate 325 mg twice a day. 12. Calcitriol 0.5 mcg a day. 13. Alprazolam 1 mg p.o. b.i.d. 14. P.r.n. Tylenol #3. 15. Zofran oral dissolving tablets. ALLERGIES: TO PHENERGAN. DIET: Renal. CODE STATUS: Full. PENDING AT THE TIME OF DISCHARGE: Nothing. HOSPITAL COURSE: The patient admitted to [facility] with headache, elevated blood pressure, some confusion. She was found to have markedly elevated blood pressures. Dr. Abdirashid Julio was consulted. She underwent hemodialysis on a semi-urgent basis. Her medicines were continued with the addition of minoxidil 2.5 mg a day. Pressures were earlier as high as 232/107, and is now 159/76. Because of the potency of minoxidil, I am reluctant to increase the dose rapidly. Her admitting laboratory revealed creatinine 2.44, BUN of 22. Lytes were balanced otherwise. Liver function tests were unremarkable. Troponins were 0.03, 0.04, 0.05, consistent with previous measurements, elevated due to chronic renal disease. CBC was unremarkable. Toxicology revealed opiates and benzodiazepine. The patient is alert, oriented. No headache. She has had no procedure. She is being discharged back to [facility]. Home health, PT. Blood pressure will be continued to be monitored there. If her blood pressure elevates, her minoxidil can be increased to 5 mg a day. This will be left to the physician caring for the patient. It has been recommended that she have followup by her PCP in 7 days. Job ID: [id number]
[2019-09-05 08:17] VITALS: TEMP 97.9
[2019-09-05] MEDS: ALPRAZolam 0.5 MG TAB PO SCH (09:13)
[2019-09-05] MEDS: cloNIDine 0.1 MG TAB PO SCH (09:13)
[2019-09-05] MEDS: Calcitriol 0.25 MCG CAP PO SCH (09:13)
[2019-09-05] MEDS: Magnesium Oxide 400 MG TAB PO SCH (09:14)
[2019-09-05] MEDS: NIFEdipine XL 90 MG TAB PO SCH (09:14)
[2019-09-05] MEDS: Minoxidil 2.5 MG TAB PO SCH (09:14)
[2019-09-05] MEDS: Nitroglycerin 2% Ointment 1 INCH/1 GM Packet TOP SCH (09:14)
[2019-09-05] MEDS: Donepezil HCl 5 MG TAB PO SCH (09:14)
[2019-09-05] MEDS: Nicotine 14 MG PATCH TD SCH (09:14)
[2019-09-05] MEDS: Ferrous Sulfate 325 MG TAB PO SCH (09:14)
[2019-09-05] MEDS: Gabapentin 300 MG CAP PO SCH (09:14)
[2019-09-05] MEDS: predniSONE 5 MG TAB PO SCH (09:15)
[2019-09-05] MEDS: PARoxetine 20 MG TAB PO SCH (09:15)
[2019-09-05] MEDS: Tacrolimus 1 MG CAP PO SCH (09:16)
[2019-09-05 12:00] VITALS: BP 124/60
[2019-09-10] MEDS ORDERED: cloNIDine 0.1mg/24 Hour PATCH TD SCH (09:00)
== END 2019-09-05 12:30 | DRG 304 ==
LOC: ERS 02:39 → ERHOLD 04:16 → 2SW 07:36 → OBSVTOIN 09-04 15:18
PROVIDERS: ADMIT Hospitalist; ATTEND Hospitalist
DX: I16.0 Hypertensive urgency (principal); N18.6 End stage renal disease; G93.41 Metabolic encephalopathy; T86.11 Kidney transplant rejection; I13.0 Hypertensive heart and chronic kidney disease with heart failure and stage 1 through stage 4 chronic kidney disease, or unspecified chronic kidney disease; I50.9 Heart failure, unspecified; F03.90 Unspecified dementia, unspecified severity, without behavioral disturbance, psychotic disturbance, mood disturbance, and anxiety; I25.10 Atherosclerotic heart disease of native coronary artery without angina pectoris; D64.9 Anemia, unspecified; G47.30 Sleep apnea, unspecified; J45.909 Unspecified asthma, uncomplicated; Y83.0 Surgical operation with transplant of whole organ as the cause of abnormal reaction of the patient, or of later complication, without mention of misadventure at the time of the procedure; Z99.2 Dependence on renal dialysis; I25.2 Old myocardial infarction; Z90.49 Acquired absence of other specified parts of digestive tract; Z90.710 Acquired absence of both cervix and uterus; Z87.891 Personal history of nicotine dependence; Z79.899 Other long term (current) drug therapy
CPT/HCPCS: 36415; 70450; 80048; 80053; 80306; 82550; 82553; 84484; 85025; 90935; 93005; 96374; 96376; 99292; G0257; J0360; J2405; J7507; J7512; Q0162

== ENCOUNTER 2019-09-22 08:40 | Day surgery (SDC) | payer MEDICARE ==
[2019-09-21 09:59] VITALS: BMI 22.3
[2019-09-22] MEDS ORDERED: Lidocaine 2% PF 5 ML VIAL ONE (10:21)
[2019-09-22] MEDS ORDERED: Bupivacaine/Epinephrine 0.25% 30 ML VIAL ONE (10:21)
[2019-09-22] MEDS ORDERED: Heparin 10,000 UNITS/1 ML VIAL ONE (10:21)
[2019-09-22] MEDS ORDERED: Bupivacaine HCl 0.5%/Epinephrine 1:200,000/PF 30 ml Vial ONE (10:21)
[2019-09-22] MEDS ORDERED: Albuterol Sulfate HFA (OR ONLY) ONE (11:06)
[2019-09-22] MEDS ORDERED: Midazolam HCl 2 mg/2 ml Vial ONE (11:06)
[2019-09-22] MEDS ORDERED: Heparin 10,000 UNITS/ 10 ML VIAL ONE (13:41)
--- NOTE | 2019-09-22 15:08 | OP ---
DATE OF PROCEDURE: 09/22/2019 PREOPERATIVE DIAGNOSES: End-stage renal disease, inadequate veins for fistula in upper extremities, previous PD catheter, infection requiring removal. POSTOPERATIVE DIAGNOSES: End-stage renal disease, inadequate veins for fistula in upper extremities, previous PD catheter, infection requiring removal. PROCEDURE PERFORMED: Laparoscopic peritoneal dialysis catheter placement. ANESTHESIA: General, local 0.5% Marcaine with epinephrine 30 mL. FINDINGS: The patient had previous omentopexy and this was still secured to the abdominal wall, it was not required. DESCRIPTION OF PROCEDURE: The patient was taken to the operating room, where under general anesthesia, abdomen was prepared with ChloraPrep and draped in routine fashion. Local anesthetic was infiltrated in the skin and subcutaneous tissue about the operative site. Bilateral far lateral subcostal incision was made. Pneumoperitoneum to 15 mmHg was obtained with a Veress needle, replaced with a 5 port, video laparoscope inserted. Contralateral 5 mm port placed. There were some adhesions in the right lower quadrant, pelvis and thus, the left lower quadrant was selected for the PD catheter placement. Left periumbilical incision was made, and counter incision and subcutaneous tissues dissected free. An 8 mm port directed into this incision directed caudally in the subcutaneous tissue into rectus sheath, visualized laparoscopically, penetrating the abdominal wall inferiorly, directing the peritoneal dialysis catheter, internal cuff into the rectus sheath, removing the port. Exit site left and slightly inferior to the counter incision was made and using the [place] dissector, placed through this small incision and directed through the counter incision. The catheter was grasped, placed an external cuff beneath the skin exit site and the subcutaneous tissue was approximated with 3-0 Monocryl, skin with subdermal 4-0 Monocryl. Catheter was flushed with heparinized saline solution and Dermabond. Sterile dressings applied. Pneumoperitoneum reduced. All instruments were removed, and all skin incisions were approximated with subdermal 4-0 Monocryl and [place] glue applied. The patient tolerated the procedure well. Job ID: [id number]
== END 2019-09-22 14:20 ==
LOC: SDC 08:40
PROVIDERS: ATTEND Specialist
PROC: 0WHG43Z Insertion of Infusion Device into Peritoneal Cavity, Percutaneous Endoscopic Approach (ICD-10-PCS; principal; 2019-09-22)
DX: N18.6 End stage renal disease (principal); Z88.8 Allergy status to other drugs, medicaments and biological substances; Z99.2 Dependence on renal dialysis; Z79.899 Other long term (current) drug therapy; Z94.0 Kidney transplant status; Z91.040 Latex allergy status
CPT/HCPCS: J0670; J0690; J1644; J2001; J2250; J7620

== ENCOUNTER 2020-01-05 01:05 | Inpatient (IN) | payer MEDICARE ==
[2020-01-05] MEDS ORDERED: Morphine 4 MG/ML VIAL ONE ×2 (01:24→04:51)
[2020-01-05] MEDS ORDERED: Ondansetron PF 4 MG/2 ML Vial ONE ×2 (01:24→04:51)
[2020-01-05 01:55] LABS: #Basophils 0.1 thou/uL (0.0-0.2); #Eosinphils 0.2 thou/uL (0.0-0.7); #Lymphocytes 1.1 thou/uL (1.20-3.40); #Neutrophils 9.8 thou/uL (1.40-6.50); %Basophils 0.5 % (0.0-1.0); %Eosinophils 1.3 % (0.0-10.0); %Lymphocytes 9.1 % (21.0-51.0); %Monocytes 8.5 % (0.0-10.0); %Neutrophils 80.5 % (42.0-75.0); Hemoglobin 13.8 g/dL (12.0-16.0); Mean Corpuscular HGB CONC 31.3 g/dL (32.0-36.0); Mean Corpuscular Hemoglobin 28.5 pg (27.0-31.0); Mean Corpuscular Volume 90.9 fL (78.0-98.0); Mean Platelet Volume 7.7 fL (7.4-10.4); Platelet Count 250 thou/uL (130-400); RBC Distribution Width 14.3 % (11.5-14.5); Red Blood Cell (RBC) Count 4.86 mill/uL (4.20-5.40); White Blood Cell (WBC) Count 12.1 thou/uL (4.8-10.8)
[2020-01-05 02:20] LABS: ALT (SGPT) 43 U/L (8-55); AST (SGOT) 80 U/L (5-34); Albumin 3.2 g/dL (3.4-4.8); Alkaline Phosphatase 51 U/L (40-110); Anion Gap 18 mmol/L (10-20); BUN (Urea Nitrogen) 54 mg/dL (9.8-20.1); Bilirubin, Total 0.3 mg/dL (0.2-1.2); Calc. Creatinine Clearance 0 mL/min (70-130); Calcium 8.7 mg/dL (7.8-10.44); Carbon Dioxide 25 mmol/L (23-31); Chloride 91 mmol/L (98-107); Estimated GFR-MDRD 5; Globulin 2.7 g/dL (2.4-3.5); Glucose 76 mg/dL (80-115); Lipase 78 U/L (8-78); Potassium 3.6 mmol/L (3.5-5.1); Protein, Total 5.9 g/dL (6.0-8.3); Sodium 130 mmol/L (136-145)
[2020-01-05 02:35] LABS: Bacteria/HPF 1+ HPF (None Seen); Bilirubin Negative (Negative); Blood, Urine 2+ (Negative); Clarity Clear (Clear); Glucose, Urine (Dipstick) Normal (Negative); Leukocyte Negative Leu/uL (Negative); Nitrite Negative (Negative); Protein, Urine (Dipstick) 300 mg/dL (Neg-Trace); RBC/HPF 0-3 HPF (0-3); Urobilinogen Normal mg/dL (Less than 2); WBC/HPF 0-3 HPF (0-3)
[2020-01-05 02:44] LABS: CKMB 25.5 ng/mL (0-6.6)
[2020-01-05] MEDS ORDERED: Aspirin Chewable 81 MG TAB ONE (04:00)
--- NOTE | 2020-01-05 04:11 | PDOC.EVN ---
Event Note - Event Note Event Note: [id number] HP
--- NOTE | 2020-01-05 04:48 | HP ---
CHIEF COMPLAINT: Left sided abdominal pain. HISTORY OF PRESENT ILLNESS: Ms. Park is a 64-year-old female with multiple medical problems including end-stage renal disease, on peritoneal dialysis; hyperlipidemia; hypertension; congestive heart failure; coronary artery disease; TIA among others including COPD, presented to the emergency room with left upper quadrant abdominal pain and lower chest pain that started suddenly prior to arrival. Workup in the emergency room including EKG showed normal sinus rhythm, nonspecific ST changes, troponin is 0.157, abdominal CT was done and it was reported to the ED as no acute finding. Given patient's presentation and risk factors, the patient is being admitted to the hospital for further management and to rule out acute coronary syndrome. PAST MEDICAL HISTORY: 1. End-stage renal disease. 2. Hyperlipidemia. 3. Hypertension. 4. COPD. 5. Congestive heart failure. 6. Coronary artery disease. PAST SURGICAL HISTORY: 1. Left kidney transplant. 2. Heart catheterization. 3. Cholecystectomy. 4. Hysterectomy. 5. Tib-fib fracture. 6. Back surgery. SOCIAL HISTORY: The patient is a long-time cigarette smoker, smokes half pack per day. Denies alcohol drinking or drug abuse. FAMILY HISTORY: Reviewed and noncontributory. ALLERGIES: ALLERGIC TO LATEX, NATURAL RUBBER, AND PROMETHAZINE. HOME MEDICATIONS: Please see home medication reconciliation form for updated medications. REVIEW OF SYSTEMS: Review of 14 systems negative except what is mentioned in the history of present illness. PHYSICAL EXAMINATION: GENERAL: The patient is awake, alert, in mild distress. VITAL SIGNS: Blood pressure is 170/90, pulse is 100, respiratory rate is 20, temperature 98.2, and oxygen saturation is 96% on 2 L/minute nasal cannula. HEAD AND NECK: Normocephalic, atraumatic. NECK: Supple. No JVD. CHEST: Fair bilateral air entry. HEART: S1 and S2. Regular. ABDOMEN: Soft with left upper quadrant tenderness and lower chest tenderness. NEUROLOGIC: Awake, alert, oriented x3. PSYCH: Normal mood. EXTREMITIES: No clubbing or cyanosis. GENITOURINARY: No suprapubic tenderness. LABORATORY DATA: WBC count is 12.1. Sodium is 130, BUN is 54, and creatinine 8.6. IMAGING DATA: CT abdomen and pelvis as mentioned above. ASSESSMENT: 1. Acute lower chest pain/left upper quadrant abdominal pain, rule out acute coronary syndrome. 2. Elevated troponins. 3. Coronary artery disease. History of myocardial infarction. 4. End-stage renal disease, on peritoneal dialysis. 5. Cigarette smoker. 6. Chronic obstructive pulmonary disease. 7. History of kidney transplant. PLAN: 1. Admit. 2. Telemetry monitoring. 3. Aspirin. 4. Serial troponins. 5. 2D echo. 6. Consult Cardiology for evaluation and further recommendations. 7. Reconcile home medications. 8. DVT prophylaxis as appropriate. 9. Expected length of stay, at least 1 midnight if patient is stable and further workup negative. Job ID: [id number]
[2020-01-05 06:10] VITALS: BMI 23.7
[2020-01-05] MEDS ORDERED: hydrALAZINE 20 MG/ML VIAL SLOW IVP SCH (06:15)
[2020-01-05 06:43] LABS: Troponin I 0.144 ng/mL (< 0.028)
--- NOTE | 2020-01-05 09:02 | RAD ---
PORTABLE CHEST: DATE: 01/05/2020. PROVIDED CLINICAL HISTORY: Abdominal pain. FINDINGS: Comparison 09/18/2019. Cardiac and mediastinal silhouette is unchanged in appearance. No focal cons olidation, pleural fluid, or pneumothorax apparent. No evidence for an acute cardiopulmonary process. POS: OFF
[2020-01-05] MEDS ORDERED: Iopamidol-370 76% 500 ML 1 ML ONE (09:09)
[2020-01-05] MEDS ORDERED: Albuterol Sulfate 2.5 mg/3 ml Neb NEB PRN (09:14)
[2020-01-05] MEDS ORDERED: Calcium Carbonate 500 MG ChewTAB PO PRN (09:19)
--- NOTE | 2020-01-05 09:42 | CT ---
PRELIMINARY REPORT/[facility]/EMERGENCY AFTER HOURS PROCEDURE: CT Abdomen and Pelvis with Intravenous Contrast HISTORY: LEFT KIDNEY TRANSPLANT HEART CATH, Surgical history of cholecystectomy, Surgical history of hysterectomy. COMPARISON: None provided. FINDINGS: LUNG BASES: No basilar airspace consolidation or pleural effusion. Mild mitral anulus calcification. LIVER: Unremarkable. GALLBLADDER/BILE DUCTS: Prior cholecystectomy. Dilated intrahepatic and extrahepatic bile ducts. Ab rupt distal CBD caliber change at the ampulla. No obstructing lesion seen. PANCREAS: Dilated duct up to 6.7 mm in diameter. No mass or signs of acute inflammation. SPLEEN: Unremarkable. ADRENAL GLANDS: Unremarkable. KIDNEYS: Absent left eek kidney. Atrophic right eek kidney. Left iliac fossa transplant kidne y with multiple small cysts. No hydronephrosis or hydroureter. Small lobulated partially calcified s tructure in the right iliac fossa, likely an atrophic transplant or ectopic kidney. STOMACH AND BOWEL: No obstruction or perforation. No wall thickening. Colonic diverticulosis. No CT e vidence of colitis or acute diverticulitis. Mobile cecum with the cecal tip in the ventral left lowe r abdomen. APPENDIX: The appendix is not definitively seen. No pericecal inflammatory changes. RETRO/PERITONEUM: Peritoneal dialysis catheter tip in the posterior left pelvis. Moderate peritoneal fluid and minimal free air (axial images #27, 47), presumably related to peritoneal dialysis. No fo anup fluid collections. LYMPH NODES: No lymphadenopathy. PELVIC ORGANS: Unremarkable urinary bladder. Prior hysterectomy. No adnexal lesions. VASCULATURE: No aortic aneurysm. Advanced calcified atherosclerosis. BODY WALL: Mild ventral pelvic wall edema. BONES: Destructive T11-T12 endplate changes with paravertebral fat stranding from the T10 to L1, conc erning for acute discitis osteomyelitis. Posterior fusion hardware at L4 and L5. IMPRESSION: T11-T12 destructive endplate changes with paravertebral inflammation, concerning for acute discitis o steomyelitis. Dilated biliary and pancreatic ducts with caliber change at the ampulla, possibly due to stricture. No obstructing lesion seen. An MRCP can be performed to further evaluate. Colonic diverticulosis without signs of diverticulitis. ELECTRONICALLY SIGNED BY: Verna Eng M.D. Jan 05, 2020 2:45:58 AM RN DELIVERY This report is intended for review by the ordering physician only, in accordance of law. If you recei ve this report in error, please call [facility] at [phone]. FINAL REPORT ABDOMEN CT WITH CONTRAST PELVIC CT WITH CONTRAST: Date: 01/05/2020 COMPARISON: 05/01/2019. HISTORY: Kidney failure. Pain. Peritoneal dialysis. FINDINGS: ABDOMEN CT: Lung bases are clear. Normal heart size. Normal caliber aorta. Gallbladder is surgically absent with resultant dilatation of the intra and extrahepatic biliary syst em. Liver, spleen, and adrenal glands have appropriate attenuation. There is marked dilatation of the pancreatic duct. No obvious mass at the head of the pancreas. Fluid in the abdomen likely due to peritoneal dialysis. No evidence of abscess. No mass, lymphadenopathy, or free air. Nonspecific edema of the ventral abdominal subcutaneous fat. Peritoneal dialysis catheter terminates in the left hemipelvis. [place] right kidney is markedly atrophic. There is a kidney in the left hemipelvis which may be a tra nsplanted kidney. Hypodensities in the transplanted kidney may represent cysts. Limited evaluation of the alimentary canal by lack of oral contrast. No evidence of bowel obstruction . Slight increasing paraspinal soft tissue density at the T11-T12 level. Irregularity of the end plates similar to previous examination. Findings may be chronic. However, given the increased paraspinal so ft tissue, the possibility of diskitis and osteomyelitis cannot be excluded. PELVIC CT: Urinary bladder is unremarkable. No pelvic mass, lymphadenopathy, or free air. There is fluid in the pelvis due to peritoneal dialysis catheter. IMPRESSION: 1. Possible diskitis/osteomyelitis at T11-T12. 2. Dilatation of the common bile duct and intrahepatic biliary system, which is presumed to be due t o a cholecystectomy state. However, there is also dilatation of the pancreatic duct. The possibility of a lesion at the level of the ampulla cannot be excluded. Consider MRCP or ERCP. This report is in agreement with the initial report by [facility]. POS: OFF
[2020-01-05] MEDS: ALPRAZolam 1 MG TAB PO PRN ×2 (09:54→22:02)
[2020-01-05 09:57] LABS: Troponin I 0.147 ng/mL (< 0.028)
[2020-01-05] MEDS: Aspirin 325 mg Enteric Coated Tablet PO SCH (10:44)
--- NOTE | 2020-01-05 10:52 | CON ---
DATE OF CONSULTATION: 01/05/2020 HISTORY OF PRESENT ILLNESS: Ms. Park is a 64-year-old white female with ESRD, status post failed renal transplant, currently on peritoneal dialysis and was admitted for left-sided back pain radiating to the left flank. We are being consulted for management of her ESRD. My plan is to resume her CCPD regimen tonight. She was also complaining of some cough and wheezing. During the initial evaluation, evaluation of CT scan of the back and abdomen was done, which showed evidence of osteomyelitis. REVIEW OF SYSTEMS: No fever. Positive for back pain/left flank pain. No nausea. No vomiting. Positive for mild shortness of breath. Appetite fair. Positive for anxiety. No gross hematuria. No dysuria. No hematochezia. No melena. No hematemesis. No headache. No diplopia. No syncopal episode. HOME MEDICATIONS: Include; 1. Trazodone 100 mg at bedtime. 2. Tizanidine 4 mg p.o. b.i.d. 3. Requip 0.5 mg at bedtime. 4. Prednisone 5 mg p.o. b.i.d. 5. Tacrolimus 1 mg p.o. b.i.d. 6. Clonidine 0.1 mg p.o. b.i.d. 7. Paroxetine 40 mg daily. 8. Magnesium oxide 400 mg p.o. b.i.d. 9. Losartan 1 tablet daily. 10. Neurontin 300 mg p.o. b.i.d. 11. Ferrous sulfate 325 mg p.o. b.i.d. 12. Aricept 5 mg daily. 13. Tums 1000 mg q.4h p.r.n. 14. Amlodipine 1 tablet daily. PAST MEDICAL HISTORY: Includes the following; 1. ESRD, currently on CCPD regimen, status post failed renal transplant - originally ESRD since FSGS. 2. Restless legs syndrome. 3. Chronic anxiety. 4. Status post pancreatitis. 5. Coronary artery disease with status post non-Q-wave MO. 6. History of gastroparesis. 7. Status post UTI. 8. History of noncompliance. 9. Chronic pain. 10. Insomnia. 11. Secondary hyperparathyroidism. 12. Status post peritonitis. 13. Hypertension. PAST SURGICAL HISTORY: 1. Status post PD catheter placement. 2. Status post AV fistula placement. 3. Status post cuffed dialysis catheter placement. 4. Status post vaginal hysterectomy. 5. Status post surgery on the right kidney. 6. Status post cardiac cath. 7. Status post upper GI endoscopy with ERCP. 8. Status post failed renal transplant. 9. Status post colonoscopy. 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 Status post blood transfusion. No alcohol intake. No IV drug abuse. . No children. Lives in [place]. FAMILY HISTORY: No family history of ESRD. ALLERGIES: LATEX AND ADVERSE REACTION TO PHENERGAN. TRAUMA: Status post fall with left tibia and fibula comminuted fracture. IMMUNIZATION: Up-to-date. HOSPITALIZATIONS: Please see past medical history. PHYSICAL EXAMINATION: GENERAL: Awake, alert, severely anxious. SKIN: Adequate turgor. HEENT: Pinkish conjunctivae. Anicteric sclerae. No neck mass. No carotid bruits. No JVD. LUNGS: Positive for wheezing. HEART: Normal sinus rhythm. No murmurs, no gallops, no rubs. ABDOMEN: Globular, soft, nontender. No masses. Positive for PD catheter. EXTREMITIES: No edema. No deformities. VITAL SIGNS: BP is 193/83, heart rate is 99, temperature is 98.6, pulse ox 95% on room air. LABORATORY DATA: Laboratories of January 05, 2020; white count 12.1, hemoglobin 13.8. Sodium 130, potassium 3.6, chloride 91, carbon dioxide 25, BUN 54, creatinine 8.63, AST 80, ALT 43. DIAGNOSTIC DATA: On January 05, 2020; CT scan of the abdomen and pelvis - positive for osteomyelitis T11-T12. ASSESSMENT AND PLAN: 1. Osteomyelitis. Consult Dr. Ritter. Consider starting IV antibiotics. 2. End-stage renal disease, stable. We will continue current CCPD regimen. Fluid removal with peritoneal dialysis. Review of the last Kt/V suggest that she is adequately dialyzed with the current dialysis regimen. 3. Chronic anemia. No indication for any Epogen at the present time. 4. Severe anxiety, p.r.n. Xanax. 5. Chronic obstructive pulmonary disease ? - she has diffuse wheezing. She is a chronic smoker. She has been advised regarding cessation of smoking. Job ID: [id number]
[2020-01-05] MEDS ORDERED: VANCOMYCIN HCL IVPB SCH (11:00)
[2020-01-05] MEDS: HYDROcodone/Acetaminophen 5/325 mg Tablet PO PRN ×2 (11:04→22:37)
[2020-01-05] MEDS ORDERED: Vancomycin HCl 500 MG in Sodium Chloride 0.9% 100 ML IVPB SCH ×2 (11:15→12:00)
[2020-01-05] MEDS ORDERED: Cefepime 1 GM in Sodium Chloride 0.9% 100 ML IVPB SCH (11:15)
[2020-01-05] MEDS ORDERED: Vancomycin Sliding Scale 1 EACH FS ONE (12:00)
[2020-01-05] MEDS ORDERED: Vancomycin HCl 1 GM in Premix Bag 1 BAG IVPB SCH (12:00)
[2020-01-05] MEDS ORDERED: Vancomycin HCl 250 MG in Sodium Chloride 0.9% 100 ML IVPB SCH (12:00)
[2020-01-05] MEDS ORDERED: Vancomycin HCl 750 MG in Sodium Chloride 0.9% 250 ML 250 ML IVPB SCH (12:00)
[2020-01-05] MEDS ORDERED: HOLD VANCOMYCIN FOR LEVEL >20 FS SCH (12:00)
--- NOTE | 2020-01-05 12:16 | PDOC.HOSPP ---
- Subjective Encounter Date: 01/05/20 Encounter Time: 10:45 Subjective: c/o anxiety and wheezing with sob no abd pain now but has left lower costal area posteriorly no spine tenderness - Objective Vital Signs & Weight: Vital Signs (12 hours) Temp Pulse Resp BP BP Pulse Ox 01/05/20 11:07 98.3 F 104 H 24 H 197/81 H 95 01/05/20 09:34 106 H 22 H 98 01/05/20 07:54 90 193/83 H 01/05/20 07:03 98.6 F 99 22 H 183/93 H 95 01/05/20 05:10 97.7 F 96 20 211/105 H 96 Weight Weight 121 lb 6 oz Result Diagrams: 01/05/20 01:47 01/05/20 01:47 Hospitalist ROS - Medication Medications: Active Medications Generic Name Dose Route Start Last Admin Trade Name Freq PRN Reason Stop Dose Admin Hydrocodone Bitart/Acetaminophen 1 tab 01/05/20 10:52 01/05/20 11:04 [place] 5/325 PO 1 tab Q4H PRN Administration Mild Pain (1-3) Albuterol Sulfate 2.5 mg 01/05/20 09:14 01/05/20 09:34 Ventolin NEB 2.5 mg Q4H PRN Administration SOB &/or Wheezing Albuterol/Ipratropium 3 ml 01/05/20 10:30 01/05/20 10:30 Duoneb NEB Not Given [id number] RAGHU Alprazolam 1 mg 01/05/20 09:27 01/05/20 09:54 Xanax PO 1 mg BIDPRN PRN Administration Anxiety Aspirin 325 mg 01/05/20 09:00 01/05/20 10:44 Ecotrin PO 325 mg DAILY RAGHU Administration - Exam General Appearance: awake alert Eye: PERRL, anicteric sclera ENT: no oropharyngeal lesions, moist mucosa Neck: supple, no JVD Heart: RRR, no murmur Respiratory: no wheezes, no rales, rhonchi Gastrointestinal: soft, non-tender, non-distended, normal bowel sounds Extremities: no cyanosis, no edema Neurological: cranial nerve grossly intact, no focal deficits Psychiatric - other findings: very anxious Hosp A/P (1) Discitis Code(s): M46.40 - DISCITIS, UNSPECIFIED, SITE UNSPECIFIED Status: Acute Qualifiers: Spinal region: thoracic Qualified Code(s): M46.44 - Discitis, unspecified, thoracic region (2) Anxiety disorder Code(s): F41.9 - ANXIETY DISORDER, UNSPECIFIED Status: Chronic Qualifiers: Anxiety disorder type: generalized anxiety disorder Qualified Code(s): F41.1 - Generalized anxiety disorder (3) Dyslipidemia Code(s): E78.5 - HYPERLIPIDEMIA, UNSPECIFIED Status: Chronic (4) Protein calorie malnutrition Code(s): E46 - UNSPECIFIED PROTEIN-CALORIE MALNUTRITION Status: Chronic Qualifiers: Protein-calorie malnutrition severity: moderate Qualified Code(s): E44.0 - Moderate protein-calorie malnutrition (5) CAD (coronary artery disease) Code(s): I25.10 - ATHSCL HEART DISEASE OF [place] CORONARY ARTERY W/O ANG PCTRS Status: Chronic Qualifiers: Coronary Disease-Associated Artery/Lesion type: [place] artery [place] vs. transplanted heart: [place] heart Associated angina: without angina Qualified Code(s): I25.10 - Atherosclerotic heart disease of [place] coronary artery without angina pectoris (6) COPD (chronic obstructive pulmonary disease) Status: Chronic Qualifiers: COPD type: chronic bronchitis (7) Chronic anemia Code(s): D64.9 - ANEMIA, UNSPECIFIED Status: Chronic (8) ESRD on peritoneal dialysis Code(s): N18.6 - END STAGE RENAL DISEASE; Z99.2 - DEPENDENCE ON RENAL DIALYSIS Status: Chronic (9) H/O kidney transplant Status: Chronic (10) Hypertension Code(s): I10 - ESSENTIAL (PRIMARY) HYPERTENSION Status: Chronic Qualifiers: Hypertension type: essential hypertension Qualified Code(s): I10 - Essential (primary) hypertension (11) Sleep apnea Code(s): G47.30 - SLEEP APNEA, UNSPECIFIED Status: Chronic Qualifiers: Sleep apnea type: unspecified type Qualified Code(s): G47.30 - Sleep apnea , unspecified (12) Tobacco use Code(s): Z72.0 - TOBACCO USE Status: Chronic - Plan D/w for possible biopsy and culture of discitis/osteo spine area, its too small an area and questionable as well. MRI thoracic and lumbar spine d/w is on cefepime and vanc, blood cs were obtained this am before antibiotics is on xanax, nebs, norvasc, clonidine, cozaar, aricept, paxil and steroids ( will be dc'd in am) lidocaine tts x2, morphine, norco, ultram prn pain may use cpap at home settings needs to ambulate with PT May tx to medical floor. No signs symptoms of cva/tia or acs now.
[2020-01-05] MEDS: methylPREDNISolone Sod Succ 40 MG VIAL IVP SCH ×2 (12:53→21:28)
[2020-01-05] MEDS: Morphine 2 MG/ML SYRINGE SLOW IVP PRN (14:12)
[2020-01-05] MEDS: Lidocaine 5% Patch TD SCH (15:25)
--- NOTE | 2020-01-05 15:57 | MRI ---
MRI THORACIC SPINE WITHOUT CONTRAST: 01/05/20 INDICATION: Follow-up findings at T11-T12. CT of 01/05/20 suggested discitis/osteomyelitis at this level. FINDINGS: The exam is severely limited due to motion artifact. STIR sequence does show abnormal increased signal indicating edema involving the T11 and T12 vertebra e. There is increased STIR signal in the disc at T11-T12. The disc space appears to be maintained, al though there is some end plate irregularity. There is a broad based disc bulge at T11-T12 disc which does flatten the thecal sac and abuts the ant erior cord without significant cord compression or central canal stenosis. Some mild end plate edema seen involving the end plates at the T10-T11 disc anteriorly. This is nonsp ecific. The other thoracic vertebrae maintain height and alignment and exhibit normal signal. No other evidence of disc bulge or protrusion. No other evidence of central canal stenosis. IMPRESSION: Severely limited exam due to motion artifact. Abnormal edema with anterior wedging at T11-T12 is note d corresponding to the recent CT findings. There is edema within the disc space and the findings are concerning for discitis/osteomyelitis at this level. There is edema along the anterior prevertebral s pace extending from T8 through T12 suspicious for inflammatory change and there is paravertebral samuel a centered at the T11-T12 level consistent with inflammatory change. Mild posterior disc bulge at T11 -T12 flattens the thecal sac and abuts the anterior cord. POS: [facility]
[2020-01-05] MEDS ORDERED: diphenhydrAMINE 25 MG CAP PO PRN (19:10)
[2020-01-05] MEDS ORDERED: diphenhydrAMINE 25 MG CAP PO SCH (19:15)
--- NOTE | 2020-01-05 20:12 | CON ---
DATE OF CONSULTATION: 01/05/2020 REASON FOR CONSULTATION: Possible thoracic spine infection. HISTORY OF PRESENT ILLNESS: A 64-year-old with history of end-stage renal disease with unknown etiology, chronic smoking, coronary artery disease, prior left kidney transplant which failed, and peritoneal dialysis catheter insertion and then peritoneal dialysis for the past few years, who has developed worsening lower back pain for the past few months and now culminated in severe episode of pain, which landed her in the emergency room. The pain was described in the left upper quadrant area and lower chest. White cell count is 12,000, sodium 130, and she had a CT of abdomen and pelvis completed and no acute findings were noted except for thoracic spine inflammatory process noted below. Currently, she is in the stroke unit. She is awake and alert, a little bit tachypneic and obviously having some element of difficulty with breathing. No headaches, visual symptoms, sore throat, odynophagia, or dysphagia. No cough. No chest pain. Still with moderate pain in the lower thoracic upper lumbar area. Still with left upper quadrant pain, but no abdominal pain per se. She still has some urinary output. No dysuria. No other joint symptoms. No neurological symptoms. PAST MEDICAL HISTORY: End-stage renal disease of unknown etiology on peritoneal dialysis, previous PD catheter infection which had to be removed and replaced, COPD, chronic smoking, ischemic cardiomyopathy, prior kidney transplant which failed, cholecystectomy, hysterectomy, tib-fib fracture, and some form of back surgery. SOCIAL H[place]ORY[place] , chronic smoker, still actively smoking. No other issues. FAMILY HISTORY: Noncontributory. ALLERGIES: LATEX AND PROMETHAZINE. MEDICATIONS: At the moment: 1. DuoNeb. 2. Xanax. 3. Norvasc. 4. Ecotrin. 5. Rocaltrol. 6. Tums. 7. Cefepime. 8. Catapres. 9. Methylprednisolone. 10. Vancomycin sliding scale. 11. Tramadol. PHYSICAL EXAMINATION: VITAL SIGNS: She has been afebrile, blood pressure 160/80, pulse 104, respirations 24, and O2 saturation 95%. SKIN: A few areas of bruising and peripheral IV access. PD catheter exit site appears normal. No [place] catheter. No lymphadenopathy. GENERAL: Chronically ill appearing, but no acute distress. Mild conjunctival hyperemia. HEENT: Pupils are 2 mm and reactive. Oral cavity dry. Numerous teeth in place with quite a bit of enamel decay and discoloration as well as gum disease. NECK: Supple. No jugular vein distention. LUNGS: With faint expiratory wheezing, distributed symmetrically in right and left hemithorax. HEART: S1 with a short systolic murmur, best heard to the left of the sternal border, second and third intercostal space. I could not hear any S2. ABDOMEN: Not distended, soft, not tender. BACK: There is back tenderness though. : No bladder distention. MUSCULOSKELETAL: No joint inflammatory activity. NEUROLOGIC: Pulses are diminished in dorsalis pedis. Cap refill appears normal. Plantar responses are flexor. No edema. Strength in upper and lower extremities is preserved. She is drowsy and will fall asleep, but easily arousable. Oriented. Follows commands. Recollection and speech appear normal. LABORATORY DATA: Labs have been reviewed above. The CT showed a serendipitous finding of increased paraspinal soft tissue density, T11, T12 level, irregularity of the endplates and also increased paraspinal soft tissue, the possibility of diskitis and osteomyelitis. There is a little bit of dilatation of common bile duct, but bilirubin is normal. I do not think that this is significant for her presentation. ASSESSMENT: 1. End-stage renal disease, unknown primary etiology. 2. Peritoneal dialysis. 3. Coronary artery disease with cardiomyopathy. 4. Chronic obstructive pulmonary disease. 5. Progressively worsening lower thoracic upper lumbar spine pain with radiculopathy. 6. Abnormal findings in the CT of abdomen, which were serendipitous findings in the process of evaluation of presumed intraabdominal process. DISCUSSION: The patient does not have evidence to suggest peritoneal dialysis complications and her symptoms are related most likely to the spinal inflammatory process. An MRI has been ordered and she has been started on broad-spectrum coverage. The blood cultures are pending. She needs an echocardiogram to evaluate the abnormal heart findings to rule out endocarditis. We will monitor blood cultures and see what the MRI shows and see if we are going to need to do any other procedures in an attempt to identify the organism causing this. If she does have documented diskitis and osteomyelitis of the lower thoracic spine with paraspinal inflammatory changes, then we will consider with Radiology percutaneous aspiration, but usually those cases are not amenable to percutaneous diagnostic procedures and other times, it have to be treated empirically. The typical organisms include Staphylococcus aureus, gram negative streptococci, and Enterococcus regimens typically with third generation cephalosporin and vancomycin combination. In her case, probably she will need a tunneled catheter to be inserted since she does peritoneal dialysis treatments that would may exceedingly difficult to give vancomycin sliding scale. The duration of therapy will be 6 weeks. The end date of therapy will be around mid January. The endpoint will be improvement of pain is the number one and then improvement of C-reactive protein and follow up imaging studies. Job ID: [id number]
[2020-01-05] MEDS: cloNIDine 0.1 MG TAB PO SCH (21:23)
[2020-01-05] MEDS: rOPINIRole HCl 0.25 MG TAB PO SCH (21:24)
[2020-01-05] MEDS: Ferrous Sulfate 325 MG TAB PO SCH (21:24)
[2020-01-05] MEDS ORDERED: Ondansetron PF 4 MG/2 ML Vial IVP SCH (21:30)
--- NOTE | 2020-01-05 22:42 | CON ---
DATE OF CONSULTATION: HISTORY OF PRESENT ILLNESS: Norma Park is a 64-year-old female initially evaluated in October 2017. At that time, she had a fall at home, fractured her left ankle and was intubated. She had respiratory acidosis. BiPAP was placed and ultimately required intubation. She underwent Lexiscan Cardiolite testing, which did not reveal any evidence of ischemia. However, she had ST-segment depression during the test along with chest discomfort. She underwent cardiac catheterization using a total of 53 mL of contrast. Left main was normal. There was a 20% mid LAD, normal ramus, 60% proximal circumflex. The right coronary artery had a high bifurcation with 30% lesion in the right posterolateral. She underwent flow wire testing of the proximal circumflex and this was 0.96. I have not seen her since that time. She now is admitted with left-sided abdominal discomfort. She has end-stage renal disease and is on peritoneal dialysis. She states that the pain was pleuritic in nature. It is since improved, but it seems to have settled in her back. PAST MEDICAL HISTORY: End-stage renal disease on peritoneal dialysis, hypertension, hyperlipidemia, one vessel coronary artery disease (circumflex), COPD. OPERATIONS: Renal transplant, cholecystectomy, hysterectomy, repair of tib-fib fracture and back surgery. SOCIAL HISTORY: She continues to smoke one half pack per day. She does not drink alcohol. FAMILY HISTORY: Unremarkable. REVIEW OF SYSTEMS: A 10-point review of systems is otherwise unremarkable. PHYSICAL EXAMINATION: VITAL SIGNS: Blood pressure 164/81, pulse of 105, sinus rhythm. HEENT: PERRL. NECK: Supple. CHEST: Reveals expiratory wheezing. CARDIOVASCULAR: S1 and S2 normal without any S3 or S4. There is a 2/6 systolic murmur. ABDOMEN: Normal bowel sounds without tenderness or organomegaly. EXTREMITIES: Revealed no clubbing, cyanosis, or edema. NEUROLOGIC: Grossly intact. SKIN: Warm and dry. LABORATORY DATA: EKG revealed normal sinus rhythm with left atrial enlargement, left axis deviation, probable septal infarct with poor R-wave progression V1 to V2. LABORATORY DATA: Hemoglobin 13.8, hematocrit 44.1, white count 65117, platelets 250,000. Sodium 130, potassium 3.6, chloride 91, carbon dioxide 25, BUN 54, creatinine 8.63. Troponin I 0.157. IMPRESSION: 1. Pleuritic left abdominal pain, which seems to now be settled more in the back. 2. Prx-SS-slaydiujl myocardial infarction, type 2. She has chronically elevated troponin I's and everyone that has ever been performed in this hospital is abnormal. 3. One vessel coronary artery disease with 60% proximal circumflex lesion on catheterization with normal flow wire in October 2017. 4. End-stage renal disease, on peritoneal dialysis. 5. The patient continues to smoke. 6. Chronic obstructive pulmonary disease. 7. History of renal transplant. PLAN: Echocardiogram will be performed. With lack of chest discomfort and pain that was pleuritic in nature, I do not feel any further cardiac evaluation is warranted given her results of catheterization 2 years ago. We will follow the patient with you. Job ID: [id number] MTDD
[2020-01-05] MEDS ORDERED: Lidocaine Patch Removal 1 EACH TOP SCH (23:00)
[2020-01-05] MEDS ORDERED: Metoclopramide HCl 10 MG/2 ML VIAL IVP SCH (23:45)
--- NOTE | 2020-01-06 03:10 | CON ---
DATE OF CONSULTATION: 01/05/2020 REASON FOR CONSULTATION: Abnormal GI imaging and possible ampullary stenosis. CONSULTING PROVIDER: David Gates MD HISTORY OF PRESENT ILLNESS: The patient is a 64-year-old female with past medical history of end-stage renal disease on peritoneal dialysis, hyperlipidemia, hypertension, COPD, CHF, coronary artery disease, TIA and chronic kidney disease status post transplant that failed, who initially presented with left flank/left back pain. On chart review and per talking with the patient, she states that over the last few months she has been having increasing mid back pain that had been increasing in terms of frequency and severity. However, yesterday, she experienced acute onset of increased left flank/left mid back pain characterized as a sharp/stabbing type sensation, was nonradiating, constant with waxing and waning severity, and reached a severity of 10/10. She could not recall any exacerbating factors, but stated that the pain was only alleviated with the use of pain medications. However, with the use of narcotics during this administration, she has had complete resolution of this left flank pain and is currently relatively asymptomatic. In speaking with the patient, she could not relate any correlation with this back pain with eating, drinking, or having a bowel movement/not having a bowel movement. Currently, she has approximately one semi-solid bowel movement per day with occasional increased straining in order to facilitate defecation, but there is no change in her bowel habits over the last 6 to 12 months. Currently, the patient denies any nausea, vomiting, fevers, chills, hematemesis, melena, hematochezia, dysphagia, odynophagia, or recent weight loss. During the course of the workup for her worsening left flank/back pain, she underwent a CT scan of the abdomen and pelvis which showed dilation of the intra and extrahepatic biliary tree concerning for possible ampullary abnormality. REVIEW OF SYSTEMS: A 10-category review of systems was obtained with all responses negative except for the pertinent positives as listed in HPI. PAST MEDICAL HISTORY: As per HPI. PAST SURGICAL HISTORY: Peritoneal dialysis catheter placement, hysterectomy, cholecystectomy, back surgery, kidney transplantation. FAMILY HISTORY: Denies any GI malignancies. SOCIAL HISTORY: Denies any alcohol or illicit drug use. Positive for tobacco use currently. OUTPATIENT MEDICATIONS: Reviewed. ALLERGIES: LATEX AND PROMETHAZINE. PHYSICAL EXAMINATION: VITAL SIGNS: Temperature 98, pulse 99, blood pressure 172/54, respiratory rate 18, saturating 93% on 3 L nasal cannula. GENERAL: The patient was lying in bed, in no acute distress. Alert and oriented x4. Conversational dyspnea noted. HEENT: Normocephalic, atraumatic. NECK: Supple. No JVD or scleral icterus noted. CARDIOVASCULAR: Tachycardic rate with 4/6 systolic murmur best heard at the left upper sternal border. RESPIRATORY: Increased resistance to air flow with possible wheezing in the bilateral lower lung [place]. ABDOMEN: Normoactive bowel sounds. Soft, nontender, and nondistended. BACK: Mild tenderness to palpation in the posterior left flank near the spine in mid back. EXTREMITIES: No cyanosis, clubbing, or edema. LABORATORY DATA: CBC with a white blood cell count of 12.1, hemoglobin 13.8, hematocrit 44.1, platelets 250. Chemistry with a sodium of 130, potassium 3.6, chloride 91, CO2 of 25, BUN 54, creatinine 8.63, glucose 76, AST 80, ALT 43, alkaline phosphatase 51, total bilirubin 0.3 albumin 3.2. IMAGING DATA: CT of the abdomen and pelvis was obtained on January 05, 2020, which showed dilated intra and extrahepatic biliary/bile ducts with an abrupt change of the distal common bile duct at the ampulla. A dilated pancreatic duct was also noted at 6.7 mm concerning for an obstructive process/ampullary stenosis. On review of previous imaging with CT scans in March and April of 2019, there was no mention of biliary dilatation, but increased hepatic parenchymal density with unclear significance. ASSESSMENT AND PLAN: The patient is a 64-year-old female with past medical history of end-stage renal disease on peritoneal dialysis, hyperlipidemia, hypertension, chronic obstructive pulmonary disease, ischemic cardiomyopathy with congestive heart failure, coronary artery disease, transient ischemic attacks, and chronic kidney disease status post kidney transplant that failed, presenting with left flank/back pain and abnormal GI imaging showing possible obstruction of both the biliary and pancreatic systems. Abnormal GI imaging. The patient initially presented with complaints of left-sided abdominal pain but on further evaluation, the origin of her pain seems to be more in her left flank/left mid back more than in the left upper quadrant. She does have a history of thoracic abnormalities with possible osteomyelitis at this time, which could contribute to the current constellation of symptoms she is having. However, during the course of the workup of this left-sided pain, she was noted to have significant dilation of both the intrahepatic and extrahepatic biliary tree with the pancreatic duct measuring 6.7 mm, but no measurements were made of the common bile duct. She is status post cholecystectomy, which could contribute to dilation of the extrahepatic biliary tree up to 1 cm in size, which would be considered normal, but it would still not explain her dilation of the pancreatic tree. At this time, the clinical significance of this imaging finding is unknown given the fact that her left-sided pain is most likely not related to these imaging findings nor does she have any significantly elevated LFTs that might indicate an obstructive-type process. Upon review of prior imaging studies, there is no mention of this dilation of the hepatic or pancreatic system, but they do not specifically address this issue either. RECOMMENDATIONS: 1. Would proceed with further imaging of this area for possible obstructive mass or extrinsic compression of both the common bile duct and pancreatic duct. 2. Tomorrow, I will confer with the radiology department for review of prior imaging and see if this is a new or old finding. 3. I would continue with current treatment methods with no plans for endoscopy at this time based on her cardiac, pulmonary, and renal history. The patient would be high risk for endoscopic procedure including ERCP with potential for pancreatitis. 4. Continue current antibiotics for probable osteomyelitis per Infectious Disease service recommendations. We will continue to follow. Please call with any questions. Job ID: [id number]
[2020-01-06] MEDS: HYDROcodone/Acetaminophen 5/325 mg Tablet PO PRN ×2 (04:35→16:14)
[2020-01-06] MEDS ORDERED: cloNIDine 0.1 MG TAB PO SCH (04:45)
[2020-01-06] MEDS: methylPREDNISolone Sod Succ 40 MG VIAL IVP SCH ×3 (05:51→21:20)
[2020-01-06] MEDS: Calcitriol 0.25 MCG CAP PO SCH (08:47)
[2020-01-06] MEDS: Amlodipine 10 MG TAB PO SCH (08:47)
[2020-01-06] MEDS: cloNIDine 0.1 MG TAB PO SCH ×2 (08:47→21:17)
[2020-01-06] MEDS: Donepezil HCl 5 MG TAB PO SCH (08:47)
[2020-01-06] MEDS: Aspirin 325 mg Enteric Coated Tablet PO SCH (08:47)
[2020-01-06] MEDS: Ferrous Sulfate 325 MG TAB PO SCH ×2 (08:48→21:17)
[2020-01-06] MEDS: PARoxetine 20 MG TAB PO SCH (08:48)
[2020-01-06] MEDS: Losartan 25 MG TAB PO SCH (08:48)
[2020-01-06 09:22] LABS: Hemoglobin 12.5 g/dL (12.0-16.0); Mean Corpuscular HGB CONC 31.1 g/dL (32.0-36.0); Mean Corpuscular Hemoglobin 28.5 pg (27.0-31.0); Mean Corpuscular Volume 91.8 fL (78.0-98.0); Mean Platelet Volume 7.9 fL (7.4-10.4); Platelet Count 270 thou/uL (130-400); RBC Distribution Width 14.2 % (11.5-14.5); White Blood Cell (WBC) Count 16.8 thou/uL (4.8-10.8)
[2020-01-06 09:35] LABS: Vancomycin, Trough Less than 1.1 ug/mL
[2020-01-06 09:39] LABS: ALT (SGPT) 34 U/L (8-55); AST (SGOT) 48 U/L (5-34); Albumin 3.1 g/dL (3.4-4.8); Alkaline Phosphatase 50 U/L (40-110); Anion Gap 17 mmol/L (10-20); BUN (Urea Nitrogen) 58 mg/dL (9.8-20.1); Bilirubin, Total 0.2 mg/dL (0.2-1.2); Calc. Creatinine Clearance 6 mL/min (70-130); Calcium 8.8 mg/dL (7.8-10.44); Carbon Dioxide 25 mmol/L (23-31); Chloride 94 mmol/L (98-107); Estimated GFR-MDRD 5; Globulin 2.8 g/dL (2.4-3.5); Glucose 138 mg/dL (80-115); Potassium 4.5 mmol/L (3.5-5.1); Protein, Total 5.9 g/dL (6.0-8.3); Sodium 131 mmol/L (136-145)
--- NOTE | 2020-01-06 09:43 | PDOC.HOSPP ---
- Subjective Encounter Date: 01/06/20 Encounter Time: 08:45 Subjective: no abd or back pain this am feels good no sob, is comfortable with nebs and xanax for copd/anxiety - Objective Vital Signs & Weight: Vital Signs (12 hours) Temp Pulse Resp BP BP Pulse Ox 01/06/20 07:22 97.5 F L 88 18 153/70 H 93 L 01/06/20 06:44 102 H 20 97 01/06/20 04:33 192/78 H 01/06/20 04:10 98.1 F 98 16 192/78 H 95 01/06/20 01:57 103 H 20 93 L 01/05/20 23:56 98 F 99 18 172/54 H 93 L 01/05/20 22:28 101 H 20 97 Weight Weight 121 lb 6 oz I&O: 01/05/20 01/06/20 01/07/20 06:59 06:59 06:59 Intake Total 1725 Balance 1725 Result Diagrams: 01/06/20 09:04 01/05/20 01:47 Hospitalist ROS - Medication Medications: Active Medications Generic Name Dose Route Start Last Admin Trade Name Freq PRN Reason Stop Dose Admin Hydrocodone Bitart/Acetaminophen 1 tab 01/05/20 10:52 01/06/20 04:35 [place] 5/325 PO 1 tab Q4H PRN Administration Mild Pain (1-3) Albuterol Sulfate 2.5 mg 01/05/20 09:14 01/05/20 09:34 Ventolin NEB 2.5 mg Q4H PRN Administration SOB &/or Wheezing Albuterol/Ipratropium 3 ml 01/05/20 10:30 01/06/20 06:44 Duoneb NEB 3 ml [id number] RAGHU Administration Alprazolam 1 mg 01/05/20 09:27 01/05/20 22:02 Xanax PO 1 mg BIDPRN PRN Administration Anxiety Amlodipine Besylate 10 mg 01/06/20 09:00 01/06/20 08:47 Norvasc PO 10 mg DAILY RAGHU Administration Aspirin 325 mg 01/05/20 09:00 01/06/20 08:47 Ecotrin PO 325 mg DAILY RAGHU Administration Calcitriol 0.5 mcg 01/06/20 09:00 01/06/20 08:47 Rocaltrol PO 0.5 mcg DAILY RAGHU Administration Cholecalciferol 1,000 units 01/06/20 09:00 01/06/20 08:47 Vitamin D3 PO 1,000 units DAILY RAGHU Administration Clonidine 0.1 mg 01/05/20 21:00 01/06/20 08:47 Catapres PO 0.1 mg BID RAGHU Administration Donepezil HCl 5 mg 01/06/20 09:00 01/06/20 08:47 Aricept PO 5 mg DAILY RAGHU Administration Ferrous Sulfate 325 mg 01/05/20 21:00 01/06/20 08:48 Feosol PO 325 mg BID RAGHU Administration Lidocaine 2 patch 01/05/20 11:00 01/05/20 15:25 Lidoderm 5% Patch TD 2 patch 1100 RAGHU Administration Losartan Potassium 25 mg 01/06/20 09:00 01/06/20 08:48 Cozaar PO 25 mg DAILY RAGHU Administration Methylprednisolone Sodium Succinate 20 mg 01/05/20 14:00 01/06/20 05:51 Solu-Medrol IVP 20 mg Q8HR RAGHU Administration Miscellaneous Medication 1 each 01/05/20 23:00 01/05/20 22:40 Lidocaine Patch Removal TOP 1 each 2300 RAGHU Administration Morphine Sulfate 2 mg 01/05/20 10:54 01/05/20 14:12 Morphine SLOW IVP 2 mg Q8H PRN Administration Severe Pain (7-10) Paroxetine HCl 40 mg 01/06/20 09:00 01/06/20 08:48 Paxil PO 40 mg DAILY RAGHU Administration Ropinirole HCl 0.5 mg 01/05/20 21:00 01/05/20 21:24 Requip PO 0.5 mg HS RAGHU Administration Sodium Chloride 10 ml 01/05/20 21:00 01/06/20 08:53 Flush - Normal Saline IVF 10 ml Q12HR RAGHU Administration - Exam General Appearance: awake alert Eye: PERRL, anicteric sclera ENT: no oropharyngeal lesions, moist mucosa Neck: supple, no JVD Heart: RRR, no murmur Respiratory: no wheezes, no rales Gastrointestinal: soft, non-tender, non-distended, normal bowel sounds Gastrointestinal - other findings: pd cath+ Extremities: no cyanosis, no edema Neurological: cranial nerve grossly intact, no focal deficits Psychiatric: A&O x 3 Hosp A/P (1) Discitis Code(s): M46.40 - DISCITIS, UNSPECIFIED, SITE UNSPECIFIED Status: Acute Qualifiers: Spinal region: thoracic Qualified Code(s): M46.44 - Discitis, unspecified, thoracic region (2) Anxiety disorder Code(s): F41.9 - ANXIETY DISORDER, UNSPECIFIED Status: Chronic Qualifiers: Anxiety disorder type: generalized anxiety disorder Qualified Code(s): F41.1 - Generalized anxiety disorder (3) Dyslipidemia Code(s): E78.5 - HYPERLIPIDEMIA, UNSPECIFIED Status: Chronic (4) Protein calorie malnutrition Code(s): E46 - UNSPECIFIED PROTEIN-CALORIE MALNUTRITION Status: Chronic Qualifiers: Protein-calorie malnutrition severity: moderate Qualified Code(s): E44.0 - Moderate protein-calorie malnutrition (5) CAD (coronary artery disease) Code(s): I25.10 - ATHSCL HEART DISEASE OF [place] CORONARY ARTERY W/O ANG PCTRS Status: Chronic Qualifiers: Coronary Disease-Associated Artery/Lesion type: [place] artery [place] vs. transplanted heart: [place] heart Associated angina: without angina Qualified Code(s): I25.10 - Atherosclerotic heart disease of [place] coronary artery without angina pectoris (6) COPD (chronic obstructive pulmonary disease) Status: Chronic Qualifiers: COPD type: chronic bronchitis (7) Chronic anemia Code(s): D64.9 - ANEMIA, UNSPECIFIED Status: Chronic (8) ESRD on peritoneal dialysis Code(s): N18.6 - END STAGE RENAL DISEASE; Z99.2 - DEPENDENCE ON RENAL DIALYSIS Status: Chronic (9) H/O kidney transplant Status: Chronic (10) Hypertension Code(s): I10 - ESSENTIAL (PRIMARY) HYPERTENSION Status: Chronic Qualifiers: Hypertension type: essential hypertension Qualified Code(s): I10 - Essential (primary) hypertension (11) Sleep apnea Code(s): G47.30 - SLEEP APNEA, UNSPECIFIED Status: Chronic Qualifiers: Sleep apnea type: unspecified type Qualified Code(s): G47.30 - Sleep apnea , unspecified (12) Tobacco use Code(s): Z72.0 - TOBACCO USE Status: Chronic - Plan D/w for possible biopsy and culture of discitis/osteo spine area, its too small an area and questionable as well. MRI thoracic spine results were reviewed. D/w aint informally about MRI images, no surgical intervention or surg biopsy candidate. is on cefepime and vanc, blood cs were obtained before antibiotics, -ve so far. is on xanax, nebs, norvasc, clonidine, cozaar, aricept, paxil and steroids. lidocaine tts x2, morphine, norco, ultram prn pain may use cpap at home settings needs to ambulate with PT, to wear tslo brace when sitting/standing/walking
--- NOTE | 2020-01-06 10:05 | PDOC.CPN ---
- Subjective Date: 01/06/20 Time: 12:49 - Objective Allergies/Adverse Reactions: Allergies Allergy/AdvReac Type Severity Reaction Status Date / Time latex Allergy Verified 09/21/19 10:00 promethazine [From Phenergan] Allergy Verified 09/21/19 10:00 Visit Medications: Current Medications Hydrocodone Bitart/Acetaminophen ([place] 5/325) 1 tab PO Q4H PRN PRN Reason: Mild Pain (1-3) Last Admin: 01/06/20 04:35 Dose: 1 tab Albuterol Sulfate (Ventolin) 2.5 mg NEB Q4H PRN PRN Reason: SOB &/or Wheezing Last Admin: 01/05/20 09:34 Dose: 2.5 mg Albuterol/Ipratropium (Duoneb) 3 ml NEB [id number] [facility] Last Admin: 01/06/20 06:44 Dose: 3 ml Alprazolam (Xanax) 1 mg PO BIDPRN PRN PRN Reason: Anxiety Last Admin: 01/05/20 22:02 Dose: 1 mg Amlodipine Besylate (Norvasc) 10 mg PO DAILY [facility] Last Admin: 01/06/20 08:47 Dose: 10 mg Aspirin (Ecotrin) 325 mg PO DAILY [facility] Last Admin: 01/06/20 08:47 Dose: 325 mg Calcitriol (Rocaltrol) 0.5 mcg PO DAILY [facility] Last Admin: 01/06/20 08:47 Dose: 0.5 mcg Calcium Carbonate (Tums) 1,000 mg PO Q4H PRN PRN Reason: Heartburn or Indigestion Cholecalciferol (Vitamin D3) 1,000 units PO DAILY [facility] Last Admin: 01/06/20 08:47 Dose: 1,000 units Clonidine (Catapres) 0.1 mg PO BID [facility] Last Admin: 01/06/20 08:47 Dose: 0.1 mg Diphenhydramine HCl (Benadryl) 25 mg PO NOW PRN PRN Reason: Itching Stop: 01/06/20 19:11 Donepezil HCl (Aricept) 5 mg PO DAILY [facility] Last Admin: 01/06/20 08:47 Dose: 5 mg Ferrous Sulfate (Feosol) 325 mg PO BID [facility] Last Admin: 01/06/20 08:48 Dose: 325 mg Cefepime HCl 1 gm/ Sodium (Chloride) 100 mls @ 200 mls/hr IVPB Q24HR [facility] Vancomycin HCl 1 gm/ Device 200 mls @ 200 mls/hr IVPB WILLCALL [facility] Vancomycin HCl 750 mg/ Sodium (Chloride) 250 mls @ 250 mls/hr IVPB WILLCALL [facility] Vancomycin HCl 500 mg/ Sodium (Chloride) 100 mls @ 100 mls/hr IVPB WILLCALL [facility] Vancomycin HCl 250 mg/ Sodium (Chloride) 100 mls @ 100 mls/hr IVPB WILLCALL [facility] Lidocaine (Lidoderm 5% Patch) 2 patch TD 1100 [facility] Last Admin: 01/05/20 15:25 Dose: 2 patch Losartan Potassium (Cozaar) 25 mg PO DAILY [facility] Last Admin: 01/06/20 08:48 Dose: 25 mg Methylprednisolone Sodium Succinate (Solu-Medrol) 20 mg IVP Q8HR [facility] Last Admin: 01/06/20 05:51 Dose: 20 mg Miscellaneous Medication (Lidocaine Patch Removal) 1 each TOP 2300 [facility] Last Admin: 01/05/20 22:40 Dose: 1 each Miscellaneous Medication (Pharmacy To Dose) 1 each IVPB PRN PRN PRN Reason: Pharmacy to dose Morphine Sulfate (Morphine) 2 mg SLOW IVP Q8H PRN PRN Reason: Severe Pain (7-10) Last Admin: 01/05/20 14:12 Dose: 2 mg Hold Vancomycin For (Level >20) 0 each FS .AT DIALYSIS [facility] Paroxetine HCl (Paxil) 40 mg PO DAILY [facility] Last Admin: 01/06/20 08:48 Dose: 40 mg Ropinirole HCl (Requip) 0.5 mg PO HS [facility] Last Admin: 01/05/20 21:24 Dose: 0.5 mg Sodium Chloride (Flush - Normal Saline) 10 ml IVF Q12HR [facility] Last Admin: 01/06/20 08:53 Dose: 10 ml Sodium Chloride (Flush - Normal Saline) 10 ml IVF PRN PRN PRN Reason: Saline Flush Tramadol HCl (Ultram) 50 mg PO Q6H PRN PRN Reason: Moderate Pain (4-6) Vital Signs & Weight: Vital Signs Temp Pulse Resp BP BP Pulse Ox 01/06/20 07:22 97.5 F L 88 18 153/70 H 93 L 01/06/20 06:44 102 H 20 97 01/06/20 04:33 192/78 H 01/06/20 04:10 98.1 F 98 16 192/78 H 95 01/06/20 01:57 103 H 20 93 L 01/05/20 23:56 98 F 99 18 172/54 H 93 L 01/05/20 22:28 101 H 20 97 Weight 121 lb 6 oz - Physical Exam General: alert & oriented x3 Neck: supple neck Cardiac: no murmur, regular rate, regular rhythm Lungs: normal exam Neuro: grossly intact - Labs Result Diagrams: 01/06/20 09:04 01/06/20 09:04 Troponin/CKMB CK-MB (CK-2) 25.5 ng/mL (0-6.6) H* 01/05/20 01:47 Troponin I 0.147 ng/mL (< 0.028) H 01/05/20 09:12 - Assessment/Plan Assessment/Plan: No cardiac CP Moderate CAD ESRD Prvous renal transplant Tobacco abuse Disciitis No further CV recommendations Stop smoking On ASA 325mg QAM. Decrease to 81mg QAM on DC Eelvated troponin secondary to demand ischemia Recommend adding stain and low dose BB NO further recommendations Will follow peripherally
[2020-01-06] MEDS: Cefepime 1 GM in Sodium Chloride 0.9% 100 ML IVPB SCH (10:32)
[2020-01-06] MEDS: ALPRAZolam 1 MG TAB PO PRN ×2 (10:32→21:32)
[2020-01-06 11:16] LABS: Eosinophils 1 % (0-10); Lymphocytes 1 % (21-51); MDiff Complete? YES; Monocytes 2 % (0-10); Neutrophil 96 % (42-75); Platelet Morphology Comment Appears Adequate
--- NOTE | 2020-01-06 11:37 | PRG ---
DATE OF SERVICE: 01/06/2020 SERVICE: Nephrology. SUBJECTIVE: A 64-year-old female with known history of end-stage renal disease, on PD, admitted due to left-sided abdominal pain. Further evaluation revealed features of thoracic spine osteomyelitis as well as COPD exacerbation. The patient is currently on IV antibiotics and has no new complaints. She also was found to have biliary dilatation concerning for ampullary stenosis. The patient is tolerating peritoneal dialysis well. Denied nausea, vomiting, or fever. OBJECTIVE: VITAL SIGNS: Temperature 98.1, pulse 89, respiratory rate 16, SpO2 of 96% on room air, blood pressure is 127/67. GENERAL: Chronically ill-looking female, in no obvious distress. Afebrile. Anicteric. Acyanotic. HEENT: Normocephalic, atraumatic. Oral mucosa is mildly dry. CARDIOVASCULAR: Regular rhythm and rate with normal heart sounds one and two. Systolic murmur noted. RESPIRATORY: Fair air entry bilaterally with some transmitted breath sounds. GI: Full, soft, nontender, nondistended with normal bowel sounds. Extremities: Grossly diffuse atrophy of the muscles and skin noted, but otherwise no edema or erythema. CEMETERY WARDEN: Conscious and alert, oriented x3 with appropriate mental status. DIAGNOSTIC DATA: CBC showed WBC count of 16.8, hemoglobin of 12.5, platelet of 270. Chemistry showed sodium 131, potassium 4.5, chloride 94, CO2 of 25, BUN 58, creatinine 8.55, glucose 138, calcium 8.8, total bilirubin 0.2, AST 48, ALT 34, alkaline phosphatase 50, total protein 5.9, and albumin 3.1. ASSESSMENT: 1. End-stage renal disease, on peritoneal dialysis: Stable. No acute issues. 2. Status post renal transplant, status post failed: The patient is still on immunosuppressive therapy with prednisone and tacrolimus. 3. Thoracic spine diskitis/osteomyelitis. Antibiotics as per Infectious Disease. 4. Biliary duct dilatation. GI following. 5. Hypertension: Control is improving with recommencement of antihypertensives. PLAN: 1. We will continue peritoneal dialysis using outpatient schedule. [place] oral intake advised. 2. We will start the patient on Nepro. 3. Treatment of thoracic osteomyelitis as per ID. Evaluation and treatment of biliary dilatation as per GI. Further treatment to follow depending on hospital course. Job ID: [id number]
[2020-01-06] MEDS: traMADol HCl 50 MG TAB PO PRN (16:13)
--- NOTE | 2020-01-06 16:55 | MRI ---
MRI ABDOMEN WITH AND WITHOUT IV CONTRAST: 01/06/20 HISTORY: Dilated intra and extrahepatic ducts. FINDINGS: Correlation is made with a CT scan of previous day. Exam is limited due to motion artifact. There are dilated intra and extrahepatic biliary ducts without definite evidence of choledocholithias is. The common bile duct measures 1 cm in diameter. The pancreatic duct is dilated measuring up to 7 mm. There is suggestion of decreased T2 signal in the liver and spleen. There appears to be decreased T1 signal in the spleen and somewhat decreased T1 signal in the liver on the severely markedly limit ed T1 sequences. There is free fluid in the abdomen. The [place] kidneys are not well visualized. A tr ansplanted kidney is noted in the left iliac fossa. The patient is post cholecystectomy. The pancreas and adrenal glands demonstrate no significant abnor malities. No definite significant abnormality. IMPRESSION: 1. Stable post cholecystectomy with dilated intra and extrahepatic biliary ducts and no definite evidence of choledocholithiasis. 2. Findings are suggestive of iron deposition in the liver and spleen. 3. Dilated pancreatic duct. Endoscopic ultrasound is recommended. POS: OFF
[2020-01-06] MEDS: Lidocaine 5% Patch TD SCH ×2 (18:02→18:32)
--- NOTE | 2020-01-06 19:16 | PRG ---
DATE OF SERVICE: 01/06/2020 REASON FOR CONSULTATION: Abnormal GI imaging showing possible ampullary stenosis. SUBJECTIVE: The patient was in imaging during the course of the day today and I was unable to evaluate the patient. Per chart review and per discussion with nursing staff, the patient had been doing better today, but continued to have left back pain that is improving when compared to previous. Otherwise, no acute events or problems overnight. OBJECTIVE: VITAL SIGNS: Temperature 97.9, pulse 80, blood pressure 132/69, respiratory rate 18, and saturating 92% on room air. Physical examination could not be performed due to the patient being in imaging. LABORATORY DATA: CBC with a white blood cell count of 16.8, hemoglobin 12.5, hematocrit 40.3, glucose 270. Chemistry with a sodium of 131, potassium 4.5, chloride 94, CO2 of 25, BUN 58, creatinine 8.55, glucose 138. AST 48, ALT 34, alkaline phosphatase 50, and total bilirubin 0.2. IMAGING DATA: MRCP was obtained on January 06, 2020, which showed dilation of both the intrahepatic and extrahepatic biliary ducts with no definite evidence of choledocholithiasis with the common bile duct measuring approximately 1 cm in diameter. However, the pancreatic duct was dilated up to 7 mm in size with no obvious extrinsic compression or obstruction seen during this exam. Upon review of prior films with the radiologist, the dilation of both the intrahepatic and extrahepatic biliary system has been present since at least March 2019, and most likely related to reservoir effect associated with cholecystectomy. However, the pancreatic duct dilation seems to be more of a new finding with inability to adequately visualize the pancreatic duct on prior imaging. ASSESSMENT AND PLAN: The patient is a 64-year-old female with past medical history of end-stage renal disease on peritoneal dialysis, hyperlipidemia, hypertension, chronic obstructive pulmonary disease, ischemic cardiomyopathy with congestive heart failure, coronary artery disease, transient ischemic attacks, and chronic kidney disease status post kidney transplant that failed, presenting with left flank/back pain and abnormal GI imaging showing dilation of the biliary and pancreatic systems. Abnormal GI imaging of the liver and pancreas. The patient initially presented with complaints of left-sided back/flank pain that seems to be more consistent with osteomyelitis of the thoracic spine, for which she is currently being treated with antibiotics. However, during the workup of her left flank pain, she was noted to have dilation of the intra and extrahepatic biliary tree along with pancreatic duct dilation up to 7 mm in size. On evaluation of prior imaging, her biliary dilation seems to be a more chronic process and likely is related to the reservoir effect associated with cholecystectomy, especially given no evidence of choledocholithiasis on MRCP today and normal LFT pattern making an obstructive-type process highly unlikely. However, with inadequate visualization of the pancreatic duct on prior imaging and now dilation of the pancreatic duct on MRI and CT, it is concerning for possible obstructive-type process. However, she has a normal lipase on admission making the likelihood of pancreatitis secondary to obstruction, highly unlikely as well. Currently, she denies any midepigastric abdominal pain, also further lending credence towards a more chronic type process, but should be surveyed. RECOMMENDATIONS: 1. Would recommend the endoscopic ultrasound as an outpatient for further evaluation of the dilation of the pancreatic duct. This can be done as an outpatient given that the patient is not exhibiting any midepigastric right upper quadrant abdominal pain and has normal LFTs and lipase. 2. There are no plans for ERCP for sphincterotomy at this time given the chronic findings of the dilation of the intra and extrahepatic biliary tree, likely related to the reservoir effect secondary to cholecystectomy. 3. Antibiotics for osteomyelitis per Infectious Disease service. Given the relatively incidental finding of this dilation of the pancreatic duct, I would recommend an endoscopic ultrasound for further evaluation, but this can be done as an outpatient. We would have the patient followup in the GI Clinic approximately 3 weeks after discharge, so this can be set up. We will sign off at this time. Please call with any questions. Job ID: [id number]
[2020-01-06] MEDS: Atorvastatin Calcium 20 MG TAB PO SCH (21:17)
[2020-01-06] MEDS: rOPINIRole HCl 0.25 MG TAB PO SCH (21:17)
[2020-01-07] MEDS: HYDROcodone/Acetaminophen 5/325 mg Tablet PO PRN ×3 (03:27→18:48)
[2020-01-07] MEDS: Lidocaine Patch Removal 1 EACH TOP SCH (05:04)
[2020-01-07] MEDS: methylPREDNISolone Sod Succ 40 MG VIAL IVP SCH ×3 (05:16→21:52)
[2020-01-07 06:18] LABS: ALT (SGPT) 28 U/L (8-55); AST (SGOT) 40 U/L (5-34); Albumin 2.9 g/dL (3.4-4.8); Alkaline Phosphatase 46 U/L (40-110); Anion Gap 19 mmol/L (10-20); BUN (Urea Nitrogen) 56 mg/dL (9.8-20.1); Bilirubin, Total 0.2 mg/dL (0.2-1.2); Calc. Creatinine Clearance 6 mL/min (70-130); Calcium 8.2 mg/dL (7.8-10.44); Carbon Dioxide 24 mmol/L (23-31); Chloride 93 mmol/L (98-107); Estimated GFR-MDRD 5; Globulin 2.4 g/dL (2.4-3.5); Glucose 144 mg/dL (80-115); Potassium 4.2 mmol/L (3.5-5.1); Protein, Total 5.3 g/dL (6.0-8.3); Sodium 132 mmol/L (136-145)
[2020-01-07] MEDS: Losartan 25 MG TAB PO SCH (08:34)
[2020-01-07] MEDS: cloNIDine 0.1 MG TAB PO SCH ×2 (08:34→20:17)
[2020-01-07] MEDS: Aspirin 325 mg Enteric Coated Tablet PO SCH (08:35)
[2020-01-07] MEDS: Donepezil HCl 5 MG TAB PO SCH (08:35)
[2020-01-07] MEDS: PARoxetine 20 MG TAB PO SCH (08:35)
[2020-01-07] MEDS: Amlodipine 10 MG TAB PO SCH (08:36)
[2020-01-07] MEDS: Calcitriol 0.25 MCG CAP PO SCH (08:36)
[2020-01-07] MEDS: Ferrous Sulfate 325 MG TAB PO SCH ×2 (08:36→20:17)
[2020-01-07] MEDS: ALPRAZolam 1 MG TAB PO PRN ×2 (09:55→21:52)
--- NOTE | 2020-01-07 10:32 | PRG ---
DATE OF SERVICE: 01/07/2020 SERVICE: Nephrology. SUBJECTIVE: A 64-year-old female with end-stage renal disease, on hemodialysis, admitted due to worsening back and left flank pain. The patient was found to have osteomyelitis of the thoracic spine and was started on broad-spectrum antimicrobial. She continued to get peritoneal dialysis and this is well tolerated. No new problem. Denied nausea, vomiting, fever, or chills. OBJECTIVE: VITAL SIGNS: Temperature 98.0, pulse 78, respiratory rate 14, SpO2 of 92 on room air, and blood pressure is 156/67. GENERAL: Female, in no obvious distress. Afebrile. Anicteric. Acyanotic. HEENT: Normocephalic and atraumatic. CARDIOVASCULAR: Regular rhythm and rate. Systolic murmur noted. RESPIRATORY: Fair air entry bilaterally with no obvious crackle or rhonchi or use of accessory muscles. GI: Full, soft, and nondistended with normal bowel sounds. PD catheter noted with no exit wound erythema. MUSCULOSKELETAL/EXTREMITIES: Midback depression and tenderness noted. Otherwise, extremities are grossly normal with no edema or erythema. WELLNESS PROGRAM MANAGER: Conscious, alert, and oriented x3 with appropriate mental status. Cranial nerves 2 through 12 are grossly intact. DIAGNOSTIC DATA: Chemistry today showed sodium 132, potassium 4.2, chloride 93, CO2 of 24, BUN 56, creatinine 8.01, glucose 144, and calcium 8.2. Total bilirubin 0.2, AST 40, ALT 28, alkaline phosphatase 46, total protein 5.3, albumin 2.9, and globulin 2.4. ASSESSMENT: 1. End-stage renal disease, on hemodialysis: No acute issues. We will continue peritoneal dialysis using outpatient schedule. 2. Status post renal transplant: The patient is still on immunosuppressive therapy with prednisone and tacrolimus. 3. Thoracic spine diskitis and osteomyelitis: Antibiotics as per Infectious Disease. 4. Biliary dilatation: Evaluation and treatment as per GI. 5. Hypertension: Control is acceptable. PLAN: We will consider de-escalating immunosuppressive therapy in this patient given infective process. We will re-evaluate tomorrow with repeat labs with a view to making a decision in this regard. Further treatment to follow depending on hospital course. Job ID: [id number]
--- NOTE | 2020-01-07 11:32 | PDOC.HOSPP ---
- Subjective Encounter Date: 01/07/20 Encounter Time: 09:30 Subjective: c/o left flank and lower back pain this am which was not present yesterday no nausea or abd pain, tolerating oral solid diet no sob - Objective Vital Signs & Weight: Vital Signs (12 hours) Temp Pulse Resp BP BP Pulse Ox 01/07/20 11:24 97.8 F 82 18 149/68 H 92 L 01/07/20 10:46 86 18 94 L 01/07/20 08:36 78 01/07/20 08:34 142/77 H 01/07/20 07:25 98.0 F 78 14 156/67 H 92 L 01/07/20 06:31 89 20 98 01/07/20 03:23 98.2 F 95 80 H 140/70 95 01/07/20 02:51 91 20 93 L 01/06/20 23:32 98.3 F 86 18 117/65 95 Weight Weight 121 lb 6 oz I&O: 01/06/20 01/07/20 01/08/20 06:59 06:59 06:59 Intake Total 1725 1948 240 Balance 1725 1948 240 Result Diagrams: 01/06/20 09:04 01/07/20 05:37 Hospitalist ROS - Medication Medications: Active Medications Generic Name Dose Route Start Last Admin Trade Name Freq PRN Reason Stop Dose Admin Hydrocodone Bitart/Acetaminophen 1 tab 01/05/20 10:52 01/07/20 08:34 [place] 5/325 PO 1 tab Q4H PRN Administration Mild Pain (1-3) Albuterol Sulfate 2.5 mg 01/05/20 09:14 01/05/20 09:34 Ventolin NEB 2.5 mg Q4H PRN Administration SOB &/or Wheezing Albuterol/Ipratropium 3 ml 01/05/20 10:30 01/07/20 10:46 Duoneb NEB 3 ml [id number] RAG[facility] Administration Alprazolam 1 mg 01/05/20 09:27 01/07/20 09:55 Xanax PO 1 mg BIDPRN PRN Administration Anxiety Amlodipine Besylate 10 mg 01/06/20 09:00 01/07/20 08:36 Norvasc PO 10 mg DAILY [facility] Administration Aspirin 325 mg 01/05/20 09:00 01/07/20 08:35 Ecotrin PO 325 mg DAILY [facility] Administration Atorvastatin Calcium 20 mg 01/06/20 21:00 01/06/20 21:17 Lipitor PO 20 mg HS [facility] Administration Calcitriol 0.5 mcg 01/06/20 09:00 01/07/20 08:36 Rocaltrol PO 0.5 mcg DAILY [facility] Administration Cholecalciferol 1,000 units 01/06/20 09:00 01/07/20 08:35 Vitamin D3 PO 1,000 units DAILY [facility] Administration Clonidine 0.1 mg 01/05/20 21:00 01/07/20 08:34 Catapres PO 0.1 mg BID [facility] Administration Donepezil HCl 5 mg 01/06/20 09:00 01/07/20 08:35 Aricept PO 5 mg DAILY [facility] Administration Ferrous Sulfate 325 mg 01/05/20 21:00 01/07/20 08:36 Feosol PO 325 mg BID [facility] Administration Cefepime HCl 1 gm/ Sodium 100 mls @ 200 mls/hr 01/06/20 11:00 01/06/20 10:32 Chloride IVPB 100 mls Q24HR [facility] Administration Vancomycin HCl 1 gm/ Device 200 mls @ 200 mls/hr 01/05/20 12:00 01/06/20 11: 36 IVPB 200 mls WILLCALL [facility] Administration Lidocaine 2 patch 01/06/20 17:00 01/06/20 18:02 Lidoderm 5% Patch TD 2 patch 1700 [facility] Administration Losartan Potassium 25 mg 01/06/20 09:00 01/07/20 08:34 Cozaar PO 25 mg DAILY [facility] Administration Methylprednisolone Sodium Succinate 20 mg 01/05/20 14:00 01/07/20 05:16 Solu-Medrol IVP 20 mg Q8HR [facility] Administration Miscellaneous Medication 1 each 01/07/20 05:00 01/07/20 05:04 Lidocaine Patch Removal TOP 1 each 0500 [facility] Administration Morphine Sulfate 2 mg 01/05/20 10:54 01/05/20 14:12 Morphine SLOW IVP 2 mg Q8H PRN Administration Severe Pain (7-10) Paroxetine HCl 40 mg 01/06/20 09:00 01/07/20 08:35 Paxil PO 40 mg DAILY [facility] Administration Ropinirole HCl 0.5 mg 01/05/20 21:00 01/06/20 21:17 Requip PO 0.5 mg HS [facility] Administration Sodium Chloride 10 ml 01/05/20 21:00 01/07/20 08:37 Flush - Normal Saline IVF 10 ml Q12HR [facility] Administration Tramadol HCl 50 mg 01/05/20 10:52 01/06/20 16:13 Ultram PO 50 mg Q6H PRN Administration Moderate Pain (4-6) - Exam General Appearance: awake alert Eye: PERRL, anicteric sclera ENT: no oropharyngeal lesions, moist mucosa Neck: supple, no JVD Heart: RRR, no murmur Respiratory: no wheezes, no rales, rhonchi Gastrointestinal: soft, non-tender, non-distended, normal bowel sounds Gastrointestinal - other findings: PD cath+ Extremities: no cyanosis, no edema Neurological: cranial nerve grossly intact, no focal deficits Psychiatric: normal affect, A&O x 3 Hosp A/P (1) Discitis Code(s): M46.40 - DISCITIS, UNSPECIFIED, SITE UNSPECIFIED Status: Acute Qualifiers: Spinal region: thoracic Qualified Code(s): M46.44 - Discitis, unspecified, thoracic region (2) Anxiety disorder Code(s): F41.9 - ANXIETY DISORDER, UNSPECIFIED Status: Chronic Qualifiers: Anxiety disorder type: generalized anxiety disorder Qualified Code(s): F41.1 - Generalized anxiety disorder (3) Dyslipidemia Code(s): E78.5 - HYPERLIPIDEMIA, UNSPECIFIED Status: Chronic (4) Protein calorie malnutrition Code(s): E46 - UNSPECIFIED PROTEIN-CALORIE MALNUTRITION Status: Chronic Qualifiers: Protein-calorie malnutrition severity: moderate Qualified Code(s): E44.0 - Moderate protein-calorie malnutrition (5) CAD (coronary artery disease) Code(s): I25.10 - ATHSCL HEART DISEASE OF [place] CORONARY ARTERY W/O ANG PCTRS Status: Chronic Qualifiers: Coronary Disease-Associated Artery/Lesion type: [place] artery [place] vs. transplanted heart: [place] heart Associated angina: without angina Qualified Code(s): I25.10 - Atherosclerotic heart disease of [place] coronary artery without angina pectoris (6) COPD (chronic obstructive pulmonary disease) Status: Chronic Qualifiers: COPD type: chronic bronchitis (7) Chronic anemia Code(s): D64.9 - ANEMIA, UNSPECIFIED Status: Chronic (8) ESRD on peritoneal dialysis Code(s): N18.6 - END STAGE RENAL DISEASE; Z99.2 - DEPENDENCE ON RENAL DIALYSIS Status: Chronic (9) H/O kidney transplant Status: Chronic (10) Hypertension Code(s): I10 - ESSENTIAL (PRIMARY) HYPERTENSION Status: Chronic Qualifiers: Hypertension type: essential hypertension Qualified Code(s): I10 - Essential (primary) hypertension (11) Sleep apnea Code(s): G47.30 - SLEEP APNEA, UNSPECIFIED Status: Chronic Qualifiers: Sleep apnea type: unspecified type Qualified Code(s): G47.30 - Sleep apnea , unspecified (12) Tobacco use Code(s): Z72.0 - TOBACCO USE Status: Chronic - Plan D/w for possible biopsy and culture of discitis/osteo spine area, its too small an area and questionable as well (01/05/2020). MRI thoracic spine results were reviewed. D/w aint informally about MRI images, no surgical intervention or surg biopsy candidate (01/06/2020). is on cefepime and vanc, blood cs were obtained before antibiotics, -ve so far. is on xanax, nebs, norvasc, clonidine, cozaar, aricept, paxil and steroids. lidocaine tts x2, morphine, norco, ultram prn pain may use cpap at home settings needs to ambulate with PT, to wear tslo brace when sitting/standing/walking will need access for halfway antibiotics, await nephrology opinion, ?brantley cath or picc
[2020-01-07] MEDS: Cefepime 1 GM in Sodium Chloride 0.9% 100 ML IVPB SCH (11:42)
--- NOTE | 2020-01-07 14:53 | PRG ---
DATE OF SERVICE: 01/07/2020 SUBJECTIVE: The patient has felt improvement in the pain in the thoracic spine. No headaches. No shortness of breath. No diarrhea. OBJECTIVE: VITAL SIGNS: Normal temperature. BP 140/60, pulse 82. GENERAL: Awake, alert, oriented. LUNGS: With faint wheezing in scattered areas. HEART: S1 and S2 without murmurs. Less back tenderness. ABDOMEN: Soft, not distended. EXTREMITIES: Moves extremities equally. LABORATORY DATA: White cell count 16.8, hemoglobin 12.5 yesterday, platelets 270 with 96% neutrophils. Blood cultures, no growth thus far, two sets. Thoracic spine MRI, the exam had motion artifact, but there was evidence of edema with wedging of T11-12 with edema within the disk space and along the prevertebral space from T8 through T12 as well as paravertebral edema T11 to T12. ASSESSMENT AND DISCUSSION: 1. End-stage renal disease, unknown primary etiology. 2. Peritoneal dialysis. 3. Coronary artery disease. 4. Chronic obstructive pulmonary disease, chronic smoking. 5. Thoracic spine diskitis osteomyelitis and epidural abscess. The patient to continue on cefepime and vancomycin. The patient receives peritoneal dialysis so vancomycin sliding scale is not going to work for her. She will need probably to be given a dose every four or five days trying to keep the trough levels between 15 and 20 mcg/mL. The cefepime dose to be adjusted in the usual fashion as already done. To continue treatment, the patient will need a tunneled catheter such as a Nunes catheter placed by Surgery and the end date of therapy will be February 17. Weekly labs including CBC, CRP, comprehensive metabolic panel. The endpoint will be improvement in the symptoms and she will need a followup MRI down the road. Followup CRP also will be a helpful endpoint. Since we do not have microbiology information, if there is persistence or exacerbation of the symptoms, then she would require surgical intervention for biopsy to establish a specific microbiology diagnosis, but I hope that this is not going to be necessary. Job ID: [id number]
[2020-01-07] MEDS: Lidocaine 5% Patch TD SCH (19:25)
[2020-01-07] MEDS: Atorvastatin Calcium 20 MG TAB PO SCH (20:17)
[2020-01-07] MEDS: rOPINIRole HCl 0.25 MG TAB PO SCH (20:17)
[2020-01-07] MEDS: Morphine 2 MG/ML SYRINGE SLOW IVP PRN (20:29)
[2020-01-08] MEDS: HYDROcodone/Acetaminophen 5/325 mg Tablet PO PRN ×4 (00:37→21:26)
[2020-01-08] MEDS: traMADol HCl 50 MG TAB PO PRN (02:05)
[2020-01-08] MEDS: methylPREDNISolone Sod Succ 40 MG VIAL IVP SCH ×3 (05:19→22:44)
[2020-01-08] MEDS: Lidocaine Patch Removal 1 EACH TOP SCH (05:20)
[2020-01-08 09:22] LABS: Hemoglobin 10.5 g/dL (12.0-16.0); Mean Corpuscular HGB CONC 29.7 g/dL (32.0-36.0); Mean Platelet Volume 7.5 fL (7.4-10.4); Platelet Count 272 thou/uL (130-400); Red Blood Cell (RBC) Count 3.87 mill/uL (4.20-5.40); White Blood Cell (WBC) Count 15.1 thou/uL (4.8-10.8)
[2020-01-08 09:35] LABS: Vancomycin, Random 12.7 ug/mL (See Comment)
[2020-01-08 09:41] LABS: Band 1 % (5-11); Hypochromia SLIGHT = 6-15 cells (100X) (0-5/hpf); Lymphocytes 3 % (21-51); MDiff Complete? YES; Monocytes 2 % (0-10); Neutrophil 94 % (42-75); Platelet Morphology Comment Appears Adequate; Polychromasia SLIGHT = 2-3 cells (100X) (0-2/hpf)
[2020-01-08] MEDS ORDERED: EPOETIN ALFA-EPBX (ESRD) 4,000 UNIT/ML VIAL SC SCH (09:45)
--- NOTE | 2020-01-08 09:46 | PRG ---
DATE OF SERVICE: 01/08/2020 SUBJECTIVE: Ms. Park is a 64-year-old white female, followed up for her ESRD. She is tolerating her peritoneal dialysis. She was initially admitted and was found to have osteomyelitis. ID consult has been done. Currently, on IV cefepime and vancomycin. She had an imaging which showed that the thoracic spine was involved with osteomyelitis. This morning, she is feeling better. No complaints. No chest pain or shortness of breath. OBJECTIVE: VITAL SIGNS: Blood pressure 154/66, heart rate 83, respiratory rate 16, temperature 98.6, pulse ox 93%. GENERAL: Awake, alert, comfortable, not in distress. SKIN: Adequate turgor. HEENT: Pinkish conjunctivae, anicteric sclerae. NECK: No neck mass. No carotid bruits. No JVD. CHEST: No deformities. LUNGS: Clear breath sounds. HEART: Normal sinus rhythm. No murmur. No gallops. No rubs. ABDOMEN: Globular. Soft. Nontender. No masses. Positive for PD catheter. EXTREMITIES: No edema. No deformities. MEDICATIONS: Medications of January 08, 2020, were reviewed. LABORATORY DATA: Laboratories of January 08, 2020, white count 15.1, hemoglobin 10.1, sodium 132, potassium 4.2, chloride 93, carbon dioxide 24, BUN 56, creatinine 8.01, AST 40, ALT 28. ASSESSMENT AND PLAN: 1. Anemia. We will start Epogen 7500 units subcu every week. 2. End-stage renal disease, stable, continuing current CCPD regimen, no changes will be made with the current peritoneal dialysis. She is tolerating it. 3. Osteomyelitis, currently on IV antibiotics. ID is following. Agree with current management. Job ID: [id number]
[2020-01-08] MEDS: Ondansetron PF 4 MG/2 ML Vial IVP PRN (10:48)
[2020-01-08] MEDS: Calcitriol 0.25 MCG CAP PO SCH (11:14)
[2020-01-08] MEDS: cloNIDine 0.1 MG TAB PO SCH ×2 (11:15→21:30)
[2020-01-08] MEDS: Losartan 25 MG TAB PO SCH (11:15)
[2020-01-08] MEDS: Donepezil HCl 5 MG TAB PO SCH (11:15)
[2020-01-08] MEDS: Aspirin 325 mg Enteric Coated Tablet PO SCH (11:15)
[2020-01-08] MEDS: Ferrous Sulfate 325 MG TAB PO SCH ×2 (11:15→21:31)
[2020-01-08] MEDS: PARoxetine 20 MG TAB PO SCH (11:15)
[2020-01-08] MEDS: Amlodipine 10 MG TAB PO SCH (11:16)
[2020-01-08] MEDS: ALPRAZolam 1 MG TAB PO PRN ×2 (11:20→23:57)
[2020-01-08] MEDS: Cefepime 1 GM in Sodium Chloride 0.9% 100 ML IVPB SCH (12:09)
--- NOTE | 2020-01-08 15:42 | PDOC.HOSPP ---
- Subjective Encounter Date: 01/08/20 Subjective: The patient was seen and examined. She complained of nausea and cervical back pain. - Objective Vital Signs & Weight: Vital Signs (12 hours) Temp Pulse Pulse Resp BP BP BP 01/08/20 14:27 78 136/63 01/08/20 13:43 79 16 01/08/20 11:26 98.5 F 86 16 174/75 H 01/08/20 11:16 82 01/08/20 11:15 149/73 H 01/08/20 10:52 82 18 01/08/20 07:41 01/08/20 07:39 82 16 01/08/20 07:21 98.6 F 83 16 154/66 H 01/08/20 04:10 98.6 F 80 16 131/62 Pulse Ox Pulse Ox 01/08/20 14:27 93 L 01/08/20 13:43 96 01/08/20 11:26 94 L 01/08/20 11:16 01/08/20 11:15 01/08/20 10:52 95 01/08/20 07:41 93 L 01/08/20 07:39 93 L 01/08/20 07:21 93 L 01/08/20 04:10 96 Weight Weight 121 lb 6 oz I&O: 01/07/20 01/08/20 01/09/20 06:59 06:59 06:59 Intake Total 1948 2290 Balance 1948 2290 Result Diagrams: 01/08/20 09:00 01/07/20 05:37 Hospitalist ROS - Medication Medications: Active Medications Generic Name Dose Route Start Last Admin Trade Name Freq PRN Reason Stop Dose Admin Hydrocodone Bitart/Acetaminophen 1 tab 01/05/20 10:52 01/08/20 11:10 [place] 5/325 PO 1 tab Q4H PRN Administration Mild Pain (1-3) Albuterol Sulfate 2.5 mg 01/05/20 09:14 01/05/20 09:34 Ventolin NEB 2.5 mg Q4H PRN Administration SOB &/or Wheezing Albuterol/Ipratropium 3 ml 01/05/20 10:30 01/08/20 13:43 Duoneb NEB 3 ml [id number] RAGHU Administration Alprazolam 1 mg 01/05/20 09:27 01/08/20 11:20 Xanax PO 1 mg BIDPRN PRN Administration Anxiety Amlodipine Besylate 10 mg 01/06/20 09:00 01/08/20 11:16 Norvasc PO 10 mg DAILY RAGHU Administration Aspirin 325 mg 01/05/20 09:00 01/08/20 11:15 Ecotrin PO 325 mg DAILY RAGHU Administration Atorvastatin Calcium 20 mg 01/06/20 21:00 01/07/20 20:17 Lipitor PO 20 mg HS RAGHU Administration Calcitriol 0.5 mcg 01/06/20 09:00 01/08/20 11:14 Rocaltrol PO 0.5 mcg DAILY RAGHU Administration Cholecalciferol 1,000 units 01/06/20 09:00 01/08/20 11:14 Vitamin D3 PO 1,000 units DAILY RAGHU Administration Clonidine 0.1 mg 01/05/20 21:00 01/08/20 11:15 Catapres PO 0.1 mg BID RAGHU Administration Donepezil HCl 5 mg 01/06/20 09:00 01/08/20 11:15 Aricept PO 5 mg DAILY RAGHU Administration Epoetin Inderjit-epbx 7,500 unit 01/08/20 09:45 01/08/20 13:08 Retacrit SC 7,500 unit Q7D RAGHU Administration Ferrous Sulfate 325 mg 01/05/20 21:00 01/08/20 11:15 Feosol PO 325 mg BID RAGHU Administration Cefepime HCl 1 gm/ Sodium 100 mls @ 200 mls/hr 01/06/20 11:00 01/08/20 12:09 Chloride IVPB 100 mls Q24HR RAGHU Administration Vancomycin HCl 1 gm/ Device 200 mls @ 200 mls/hr 01/05/20 12:00 01/06/20 11: 36 IVPB 200 mls WILLCALL RAGHU Administration Lidocaine 2 patch 01/06/20 17:00 01/07/20 19:25 Lidoderm 5% Patch TD 2 patch 1700 RAGHU Administration Losartan Potassium 25 mg 01/06/20 09:00 01/08/20 11:15 Cozaar PO 25 mg DAILY RAGHU Administration Methylprednisolone Sodium Succinate 20 mg 01/05/20 14:00 01/08/20 14:54 Solu-Medrol IVP 20 mg Q8HR RAGHU Administration Miscellaneous Medication 1 each 01/07/20 05:00 01/08/20 05:20 Lidocaine Patch Removal TOP 1 each 0500 RAGHU Administration Morphine Sulfate 2 mg 01/05/20 10:54 01/07/20 20:29 Morphine SLOW IVP 2 mg Q8H PRN Administration Severe Pain (7-10) Ondansetron HCl 4 mg 01/08/20 10:17 01/08/20 10:48 Zofran IVP 4 mg Q6H PRN Administration Nausea/Vomiting Paroxetine HCl 40 mg 01/06/20 09:00 01/08/20 11:15 Paxil PO 40 mg DAILY RAGHU Administration Ropinirole HCl 0.5 mg 01/05/20 21:00 01/07/20 20:17 Requip PO 0.5 mg HS RAGHU Administration Sodium Chloride 10 ml 01/05/20 21:00 01/08/20 10:49 Flush - Normal Saline IVF 10 ml Q12HR RAGHU Administration Sodium Chloride 10 ml 01/05/20 11:12 01/08/20 14:56 Flush - Normal Saline IVF 10 ml PRN PRN Administration Saline Flush Tramadol HCl 50 mg 01/05/20 10:52 01/08/20 02:05 Ultram PO 50 mg Q6H PRN Administration Moderate Pain (4-6) - Exam General Appearance: NAD, awake alert ENT: normocephalic atraumatic Neck: supple Heart: RRR, no murmur, no gallops, no rubs Respiratory: CTAB, normal chest expansion, no tachypnea, normal percussion Gastrointestinal: soft, non-tender, non-distended, normal bowel sounds Neurological: cranial nerve grossly intact, no focal deficits Hosp A/P (1) Discitis Code(s): M46.40 - DISCITIS, UNSPECIFIED, SITE UNSPECIFIED Status: Acute Qualifiers: Spinal region: thoracic Qualified Code(s): M46.44 - Discitis, unspecified, thoracic region (2) ESRD (end stage renal disease) on dialysis Code(s): N18.6 - END STAGE RENAL DISEASE; Z99.2 - DEPENDENCE ON RENAL DIALYSIS Status: Chronic (3) COPD (chronic obstructive pulmonary disease) Status: Chronic Qualifiers: COPD type: chronic bronchitis (4) Metabolic acidosis Code(s): E87.2 - ACIDOSIS Status: Resolved - Plan 01/08: Continue IV vancomycin and cefepime for osteomyelitis of T10-11. The patient will require 4 weeks of IV antibiotics. End date of antibiotics is February 17. Surgery service consulted for placement of a tunneled Nunes catheter. Continue dialysis per nephrology recommendations.
--- NOTE | 2020-01-08 15:49 | CON ---
DATE OF CONSULTATION: 01/08/2020 CHIEF COMPLAINT: Osteomyelitis. HISTORY OF PRESENT ILLNESS: This is a 64-year-old female with a history of end-stage renal disease, who now presents with a history of diskitis, osteomyelitis, and epidural abscess. She is seen by Dr. Ritter, who recommends prolonged IV antibiotics. I have been consulted for Nunes placement. PAST MEDICAL HISTORY: Includes end-stage renal disease, COPD, CHF, TIA, and chronic kidney disease. PAST SURGICAL HISTORY: Peritoneal dialysis catheter, hysterectomy, cholecystectomy, back surgery, and kidney transplant. MEDICATIONS: See list. ALLERGIES: LATEX AND PROMETHAZINE. SOCIAL HISTORY: No alcohol or drugs. She is positive for smoking. REVIEW OF SYSTEMS: Otherwise negative, unless described above. PHYSICAL EXAMINATION: VITAL SIGNS: Blood pressure is 136/63. Her pulse is 78. She is afebrile. CHEST: Clear. HEART: Regular rate. ABDOMEN: Soft and nontender. EXTREMITIES: She is in her T and L-spine brace. ASSESSMENT: Osteomyelitis of spine with epidural abscess history, now needs prolonged IV antibiotics. PLAN: She will need tunneled Nunes catheter. Risks, benefits, and alternatives were discussed. Not sure whether it would be Wednesday or Wednesday for that procedure. Job ID: [id number]
[2020-01-08] MEDS ORDERED: traMADol HCl 50 MG TAB PO PRN (16:25)
[2020-01-08] MEDS: Lidocaine 5% Patch TD SCH (19:46)
[2020-01-08] MEDS: Atorvastatin Calcium 20 MG TAB PO SCH (21:30)
[2020-01-08] MEDS: rOPINIRole HCl 0.25 MG TAB PO SCH (21:31)
[2020-01-09 06:02] LABS: Hemoglobin 13.3 g/dL (12.0-16.0); Lymphocytes 3 % (21-51); MDiff Complete? YES; Mean Corpuscular HGB CONC 32.6 g/dL (32.0-36.0); Mean Corpuscular Hemoglobin 30.2 pg (27.0-31.0); Mean Corpuscular Volume 92.6 fL (78.0-98.0); Mean Platelet Volume 7.7 fL (7.4-10.4); Monocytes 2 % (0-10); Neutrophil 95 % (42-75); Platelet Count 323 thou/uL (130-400); Platelet Morphology Comment Appears Adequate; Red Blood Cell (RBC) Count 4.39 mill/uL (4.20-5.40); White Blood Cell (WBC) Count 17.5 thou/uL (4.8-10.8)
[2020-01-09 06:05] LABS: Anion Gap 19 mmol/L (10-20); BUN (Urea Nitrogen) 60 mg/dL (9.8-20.1); Calc. Creatinine Clearance 8 mL/min (70-130); Carbon Dioxide 24 mmol/L (23-31); Chloride 87 mmol/L (98-107); Estimated GFR-MDRD 6; Glucose 115 mg/dL (80-115); Potassium 4.3 mmol/L (3.5-5.1); Sodium 126 mmol/L (136-145)
[2020-01-09] MEDS: Lidocaine Patch Removal 1 EACH TOP SCH (06:15)
[2020-01-09] MEDS: methylPREDNISolone Sod Succ 40 MG VIAL IVP SCH ×3 (06:15→21:05)
[2020-01-09] MEDS: Calcitriol 0.25 MCG CAP PO SCH (07:46)
[2020-01-09] MEDS: Amlodipine 10 MG TAB PO SCH (07:47)
[2020-01-09] MEDS: Ferrous Sulfate 325 MG TAB PO SCH ×2 (07:47→20:15)
[2020-01-09] MEDS: Aspirin 325 mg Enteric Coated Tablet PO SCH (07:47)
[2020-01-09] MEDS: PARoxetine 20 MG TAB PO SCH (07:47)
[2020-01-09] MEDS: cloNIDine 0.1 MG TAB PO SCH ×2 (07:48→20:14)
[2020-01-09] MEDS: Donepezil HCl 5 MG TAB PO SCH (07:48)
[2020-01-09] MEDS: Losartan 25 MG TAB PO SCH (07:48)
[2020-01-09] MEDS: ALPRAZolam 1 MG TAB PO PRN ×2 (07:52→20:15)
--- NOTE | 2020-01-09 09:21 | PRG ---
DATE OF SERVICE: SUBJECTIVE: Ms. Park is a 64-year-old white female with ESRD, followed by the Renal Service for maintenance peritoneal dialysis. She underwent peritoneal dialysis without any difficulty yesterday. She is tolerating said treatment. She has also been diagnosed to have osteomyelitis. She is currently on IV antibiotics. The plan is for her to have several weeks of IV antibiotics. Surgical consultation was done with Dr. Marinelli for placement of a tunneled Nunes catheter. No acute events noted last night. OBJECTIVE: VITAL SIGNS: Blood pressure 168/69, heart rate 72, respiratory rate 16, temperature 98.2, and pulse ox 92%. GENERAL: Noted to be sleeping, but comfortable, not in distress. SKIN: Adequate turgor. HEENT: Pinkish conjunctivae. Anicteric sclerae. NECK: No neck mass. No carotid bruits. No JVD. CHEST: No deformities. LUNGS: Clear breath sounds. No wheezing. No crackles. HEART: Normal sinus rhythm. No murmur. No gallops. No rubs. ABDOMEN: Globular, soft, and nontender. No masses. Positive for PD catheter. EXTREMITIES: No edema. No deformities. MEDICATIONS: Medications of January 09, 2020, was reviewed. LABORATORY DATA: January 09, 2020; white count 17.5, hemoglobin 13.3, sodium 126, potassium 4.3, chloride 87, carbon dioxide 24, BUN 60, creatinine 6.57, glucose 115, and calcium 9. ASSESSMENT/PLAN: 1. Osteomyelitis - IV antibiotics. ID is following. Plan is to give her IV antibiotics until the middle of January. 2. End-stage renal disease, stable. Continue current CCPD regimen, tolerating peritoneal dialysis, no changes to be made. 3. Mild hyponatremia - consider free water restriction. 4. Anemia, stable. On maintenance Epogen. Job ID: [id number]
[2020-01-09 10:03] LABS: Vancomycin, Random 11.4 ug/mL (See Comment)
[2020-01-09] MEDS: Cefepime 1 GM in Sodium Chloride 0.9% 100 ML IVPB SCH (10:48)
[2020-01-09] MEDS: Ondansetron PF 4 MG/2 ML Vial IVP PRN (13:46)
[2020-01-09] MEDS: hydrALAZINE 25 MG TAB PO SCH ×2 (15:10→20:14)
[2020-01-09] MEDS: HYDROcodone/Acetaminophen 5/325 mg Tablet PO PRN ×2 (15:11→20:16)
--- NOTE | 2020-01-09 16:51 | PDOC.EVN ---
Event Note - Event Note Event Note: Plan Nunes catheter by Dr. Beltre when he returns to [facility] or Wednesday
[2020-01-09] MEDS: Lidocaine 5% Patch TD SCH (17:52)
[2020-01-09] MEDS: Atorvastatin Calcium 20 MG TAB PO SCH (20:15)
[2020-01-09] MEDS: rOPINIRole HCl 0.25 MG TAB PO SCH (20:16)
[2020-01-09] MEDS ORDERED: Senokot 8.6 MG TAB PO PRN (21:27)
[2020-01-09] MEDS ORDERED: Senokot 8.6 MG TAB PO SCH (21:30)
[2020-01-09] MEDS: Morphine 2 MG/ML SYRINGE SLOW IVP PRN (22:13)
[2020-01-10] MEDS: HYDROcodone/Acetaminophen 5/325 mg Tablet PO PRN ×6 (01:12→22:20)
[2020-01-10] MEDS: methylPREDNISolone Sod Succ 40 MG VIAL IVP SCH ×3 (05:31→21:09)
[2020-01-10] MEDS: Ondansetron PF 4 MG/2 ML Vial IVP PRN (05:31)
[2020-01-10] MEDS: Lidocaine Patch Removal 1 EACH TOP SCH (05:35)
[2020-01-10 05:40] LABS: Hemoglobin 12.9 g/dL (12.0-16.0); Lymphocytes 5 % (21-51); MDiff Complete? YES; Mean Corpuscular HGB CONC 33.8 g/dL (32.0-36.0); Mean Corpuscular Hemoglobin 30.7 pg (27.0-31.0); Mean Corpuscular Volume 90.9 fL (78.0-98.0); Mean Platelet Volume 7.7 fL (7.4-10.4); Monocytes 5 % (0-10); Neutrophil 90 % (42-75); Platelet Count 276 thou/uL (130-400); RBC Distribution Width 13.7 % (11.5-14.5); RBC Morphology Normal; Red Blood Cell (RBC) Count 4.19 mill/uL (4.20-5.40); White Blood Cell (WBC) Count 14.2 thou/uL (4.8-10.8)
--- NOTE | 2020-01-10 08:44 | PRG ---
DATE OF SERVICE: 01/10/[address] Beltre. We will put her on the schedule for Nunes tunneled catheter for long-term antibiotic IV access. He will plan on doing it , tomorrow. We will make her n.p.o. after midnight tonight. Risks, benefits, and alternatives discussed. Job ID: [id number]
[2020-01-10] MEDS: Calcitriol 0.25 MCG CAP PO SCH (08:45)
[2020-01-10] MEDS: Amlodipine 10 MG TAB PO SCH (08:46)
[2020-01-10] MEDS: Aspirin 325 mg Enteric Coated Tablet PO SCH (08:46)
[2020-01-10] MEDS: Ferrous Sulfate 325 MG TAB PO SCH ×2 (08:46→21:08)
[2020-01-10] MEDS: hydrALAZINE 25 MG TAB PO SCH ×3 (08:47→21:07)
[2020-01-10] MEDS: PARoxetine 20 MG TAB PO SCH (08:47)
[2020-01-10] MEDS: cloNIDine 0.1 MG TAB PO SCH ×2 (08:48→21:07)
[2020-01-10] MEDS: Donepezil HCl 5 MG TAB PO SCH (08:48)
[2020-01-10] MEDS: Losartan 25 MG TAB PO SCH (08:48)
--- NOTE | 2020-01-10 10:07 | PRG ---
DATE OF SERVICE: SUBJECTIVE: Ms. Park is a 64-year-old white female with ESRD and currently on peritoneal/nocturnal dialysis. Tolerating said treatment. ID changed the PD regimen yesterday to 1.5% PD solution alternating with 2.5% PD solution to enhance fluid removal. No other complaints today. She was also diagnosed with osteomyelitis of her back. Plan is for her to receive IV antibiotics until the middle of this month. Planned line placement access - Nunes port is being considered for tomorrow. Possibility of her going to rehab so she can get IV antibiotics is being considered. No other complaints today. No chest pain or shortness of breath. OBJECTIVE: VITAL SIGNS: Blood pressure 170/75, heart rate 75, respiratory rate 14, temperature 97.6, and pulse ox 94%. GENERAL: Awake, alert, comfortable, not in distress. SKIN: Adequate turgor. HEENT: Pinkish conjunctivae. Anicteric sclerae. NECK: No neck mass. No carotid bruits. No JVD. CHEST: No deformities. LUNGS: Clear breath sounds. HEART: Normal sinus rhythm. No murmur. No gallops. No rubs. ABDOMEN: Globular, soft, and nontender. No masses. EXTREMITIES: No edema. No deformities. Positive for PD catheter. MEDICATIONS: Medications of January 10, 2020, reviewed. LABORATORY DATA: January 10, 2020; white count 14.2, hemoglobin 12.9. January 09, 2020; sodium 126, potassium 4.3, chloride 87, carbon dioxide 24, BUN 60, creatinine 6.57, and calcium 9. ASSESSMENT AND PLAN: 1. Mild hyponatremia. Continue free water restriction. Adjust PD regimen. 2. End-stage renal disease, stable, tolerating current peritoneal dialysis regimen. We will continue current CCPD regimen. Fluid removal as tolerated. 3. Anemia - stable. No indication for any Epogen today. 4. Hypertension, adjusting BP medications. 5. Osteomyelitis - on IV antibiotics for the next several weeks. ID following. Job ID: [id number]
[2020-01-10 10:29] LABS: Vancomycin, Random 9.5 ug/mL (See Comment)
[2020-01-10] MEDS: Cefepime 1 GM in Sodium Chloride 0.9% 100 ML IVPB SCH (11:18)
--- NOTE | 2020-01-10 16:55 | PDOC.HOSPP ---
- Subjective Encounter Date: 01/10/20 Subjective: No new complaints - Objective Vital Signs & Weight: Vital Signs (12 hours) Temp Pulse Resp BP BP Pulse Ox 01/10/20 15:10 77 16 95 01/10/20 14:34 74 150/71 H 01/10/20 12:26 74 16 91 L 01/10/20 12:00 97.9 F 85 18 150/71 H 95 01/10/20 08:49 97.6 F 75 14 170/75 H 94 L 01/10/20 08:48 170/75 H 01/10/20 08:47 81 170/75 H 01/10/20 08:46 81 170/75 H 01/10/20 08:00 94 L 01/10/20 06:35 93 L 01/10/20 06:34 73 16 93 L Weight Weight 121 lb 6 oz I&O: 01/09/20 01/10/20 01/11/20 06:59 06:59 06:59 Intake Total 1470 400 Balance 1470 400 Result Diagrams: 01/10/20 04:55 01/09/20 05:01 Hospitalist ROS - Medication Medications: Active Medications Generic Name Dose Route Start Last Admin Trade Name Freq PRN Reason Stop Dose Admin Hydrocodone Bitart/Acetaminophen 1 tab 01/05/20 10:52 01/10/20 13:29 [place] 5/325 PO 1 tab Q4H PRN Administration Mild Pain (1-3) Albuterol Sulfate 2.5 mg 01/05/20 09:14 01/05/20 09:34 Ventolin NEB 2.5 mg Q4H PRN Administration SOB &/or Wheezing Albuterol/Ipratropium 3 ml 01/05/20 10:30 01/10/20 15:10 Duoneb NEB 3 ml [id number] RAGHU Administration Alprazolam 1 mg 01/05/20 09:27 01/09/20 20:15 Xanax PO 1 mg BIDPRN PRN Administration Anxiety Amlodipine Besylate 10 mg 01/06/20 09:00 01/10/20 08:46 Norvasc PO 10 mg DAILY RAGHU Administration Aspirin 325 mg 01/05/20 09:00 01/10/20 08:46 Ecotrin PO 325 mg DAILY RAGHU Administration Atorvastatin Calcium 20 mg 01/06/20 21:00 01/09/20 20:15 Lipitor PO 20 mg HS RAGHU Administration Calcitriol 0.5 mcg 01/06/20 09:00 01/10/20 08:45 Rocaltrol PO 0.5 mcg DAILY RAGHU Administration Cholecalciferol 1,000 units 01/06/20 09:00 01/10/20 08:46 Vitamin D3 PO 1,000 units DAILY RAGHU Administration Clonidine 0.1 mg 01/05/20 21:00 01/10/20 08:48 Catapres PO 0.1 mg BID RAGHU Administration Donepezil HCl 5 mg 01/06/20 09:00 01/10/20 08:48 Aricept PO 5 mg DAILY RAGHU Administration Epoetin Inderjit-epbx 7,500 unit 01/08/20 09:45 01/08/20 13:08 Retacrit SC 7,500 unit Q7D RAGHU Administration Ferrous Sulfate 325 mg 01/05/20 21:00 01/10/20 08:46 Feosol PO 325 mg BID RAGHU Administration Hydralazine HCl 25 mg 01/09/20 15:00 01/10/20 14:34 Apresoline PO 25 mg TID RAGHU Administration Cefepime HCl 1 gm/ Sodium 100 mls @ 200 mls/hr 01/06/20 11:00 01/10/20 11:18 Chloride IVPB 100 mls Q24HR RAGHU Administration Vancomycin HCl 1 gm/ Device 200 mls @ 200 mls/hr 01/05/20 12:00 01/06/20 11: 36 IVPB 200 mls WILLCALL RAGHU Administration Lidocaine 2 patch 01/06/20 17:00 01/09/20 17:52 Lidoderm 5% Patch TD 2 patch 1700 RAGHU Administration Losartan Potassium 25 mg 01/06/20 09:00 01/10/20 08:48 Cozaar PO 25 mg DAILY RAGHU Administration Methylprednisolone Sodium Succinate 20 mg 01/05/20 14:00 01/10/20 14:34 Solu-Medrol IVP 20 mg Q8HR RAGHU Administration Miscellaneous Medication 1 each 01/07/20 05:00 01/10/20 05:35 Lidocaine Patch Removal TOP 1 each 0500 RAGHU Administration Morphine Sulfate 2 mg 01/05/20 10:54 01/09/20 22:13 Morphine SLOW IVP 2 mg Q8H PRN Administration Severe Pain (7-10) Ondansetron HCl 4 mg 01/08/20 10:17 01/10/20 05:31 Zofran IVP 4 mg Q6H PRN Administration Nausea/Vomiting Paroxetine HCl 40 mg 01/06/20 09:00 01/10/20 08:47 Paxil PO 40 mg DAILY RAGHU Administration Ropinirole HCl 0.5 mg 01/05/20 21:00 01/09/20 20:16 Requip PO 0.5 mg HS RAGHU Administration Sodium Chloride 10 ml 01/05/20 21:00 01/10/20 09:17 Flush - Normal Saline IVF 10 ml Q12HR RAGHU Administration Sodium Chloride 10 ml 01/05/20 11:12 01/08/20 14:56 Flush - Normal Saline IVF 10 ml PRN PRN Administration Saline Flush - Exam General Appearance: NAD Eye: PERRL, anicteric sclera ENT: normocephalic atraumatic, no oropharyngeal lesions, moist mucosa Neck: supple, symmetric, no JVD, no thyromegaly Heart: RRR Respiratory: CTAB Gastrointestinal: soft, non-tender, non-distended Neurological: cranial nerve grossly intact Psychiatric: A&O x 3 Hosp A/P (1) Discitis Code(s): M46.40 - DISCITIS, UNSPECIFIED, SITE UNSPECIFIED Status: Acute Qualifiers: Spinal region: thoracic Qualified Code(s): M46.44 - Discitis, unspecified, thoracic region (2) ESRD (end stage renal disease) on dialysis Code(s): N18.6 - END STAGE RENAL DISEASE; Z99.2 - DEPENDENCE ON RENAL DIALYSIS Status: Chronic (3) COPD (chronic obstructive pulmonary disease) Status: Chronic Qualifiers: COPD type: chronic bronchitis - Plan Continue IV vancomycin and cefepime for osteomyelitis of T10-11. The patient will require 4 weeks of IV antibiotics. End date of antibiotics is February 17. Surgery service planning for placement of a tunneled Nunes catheter tomorrow. Continue dialysis per nephrology recommendations. Disposition: IR.
[2020-01-10] MEDS: Lidocaine 5% Patch TD SCH (17:39)
[2020-01-10] MEDS: Morphine 2 MG/ML SYRINGE SLOW IVP PRN (18:20)
[2020-01-10] MEDS: Atorvastatin Calcium 20 MG TAB PO SCH (21:08)
[2020-01-10] MEDS: rOPINIRole HCl 0.25 MG TAB PO SCH (21:09)
[2020-01-10] MEDS: ALPRAZolam 1 MG TAB PO PRN (21:12)
[2020-01-11 05:23] LABS: Band 1 % (5-11); Lymphocytes 6 % (21-51); MDiff Complete? YES; Mean Corpuscular Hemoglobin 29.3 pg (27.0-31.0); Mean Corpuscular Volume 91.5 fL (78.0-98.0); Mean Platelet Volume 7.4 fL (7.4-10.4); Monocytes 4 % (0-10); Neutrophil 89 % (42-75); Platelet Count 314 thou/uL (130-400); Platelet Morphology Comment Appears Adequate; Red Blood Cell (RBC) Count 4.09 mill/uL (4.20-5.40); White Blood Cell (WBC) Count 18.8 thou/uL (4.8-10.8)
[2020-01-11] MEDS: HYDROcodone/Acetaminophen 5/325 mg Tablet PO PRN ×3 (05:53→19:58)
[2020-01-11] MEDS: methylPREDNISolone Sod Succ 40 MG VIAL IVP SCH ×3 (05:55→20:00)
[2020-01-11] MEDS: Lidocaine Patch Removal 1 EACH TOP SCH (05:55)
[2020-01-11] MEDS ORDERED: Lidocaine 1% w/Epinephrine 1:100K 20 ML VIAL ONE (08:04)
[2020-01-11] MEDS ORDERED: Bupivacaine 0.25% HCL 30 ML VIAL ONE (08:04)
[2020-01-11] MEDS ORDERED: Fentanyl 100 MCG/2 ML VIAL ONE (08:07)
[2020-01-11] MEDS ORDERED: Sodium Chloride 0.9% 20 ML ONE (08:34)
[2020-01-11] MEDS ORDERED: Ondansetron HCl/PF 4 MG/2 ML Vial IVP PRN (08:45)
[2020-01-11] MEDS ORDERED: Promethazine HCl 25 MG/ML VIAL SLOW IVP PRN (08:45)
[2020-01-11] MEDS ORDERED: Promethazine HCl 25 MG/ML VIAL IM PRN (08:45)
[2020-01-11] MEDS: Calcitriol 0.25 MCG CAP PO SCH (09:27)
[2020-01-11] MEDS: PARoxetine 20 MG TAB PO SCH (09:27)
[2020-01-11] MEDS: Donepezil HCl 5 MG TAB PO SCH (09:27)
[2020-01-11] MEDS: Amlodipine 10 MG TAB PO SCH (09:27)
[2020-01-11] MEDS: hydrALAZINE 25 MG TAB PO SCH ×3 (09:28→19:59)
[2020-01-11] MEDS: Ferrous Sulfate 325 MG TAB PO SCH ×2 (09:28→19:59)
[2020-01-11] MEDS: Losartan 25 MG TAB PO SCH (09:28)
[2020-01-11] MEDS: cloNIDine 0.1 MG TAB PO SCH ×2 (09:28→19:59)
[2020-01-11] MEDS: Aspirin 325 mg Enteric Coated Tablet PO SCH (09:29)
--- NOTE | 2020-01-11 09:47 | RAD ---
CHEST 1 VIEW: Date: 01/11/2020 HISTORY: Central line placement. COMPARISON: Radiograph dated 01/05/2020. FINDINGS: There is a central venous catheter, left IJ approach, lies with tip at the right atrium. No pneumotho rax. IMPRESSION: Uncomplicated central line placement. POS: CET
[2020-01-11] MEDS: ALPRAZolam 1 MG TAB PO PRN ×2 (10:03→19:58)
[2020-01-11] MEDS: Cefepime 1 GM in Sodium Chloride 0.9% 100 ML IVPB SCH (11:25)
[2020-01-11 12:31] LABS: Vancomycin, Random 7.8 ug/mL (See Comment)
--- NOTE | 2020-01-11 13:47 | PDOC.HOSPP ---
- Subjective Encounter Date: 01/11/20 Subjective: S/P [place] cath placement. No new complaints. - Objective Vital Signs & Weight: Vital Signs (12 hours) Temp Pulse Resp BP BP BP Pulse Ox 01/11/20 12:35 97.6 F 74 20 147/69 H 92 L 01/11/20 10:50 69 16 94 L 01/11/20 09:28 78 174/73 H 01/11/20 09:27 73 01/11/20 08:00 94 L 01/11/20 07:08 92 L 01/11/20 04:00 98.2 F 78 18 135/62 92 L 01/11/20 02:13 81 16 Weight Weight 121 lb 6 oz I&O: 01/10/20 01/11/20 01/12/20 06:59 06:59 06:59 Intake Total 400 240 Balance 400 240 Result Diagrams: 01/11/20 04:53 01/09/20 05:01 Hospitalist ROS - Medication Medications: Active Medications Generic Name Dose Route Start Last Admin Trade Name Freq PRN Reason Stop Dose Admin Hydrocodone Bitart/Acetaminophen 1 tab 01/05/20 10:52 01/11/20 10:00 [place] 5/325 PO 1 tab Q4H PRN Administration Mild Pain (1-3) Albuterol Sulfate 2.5 mg 01/05/20 09:14 01/05/20 09:34 Ventolin NEB 2.5 mg Q4H PRN Administration SOB &/or Wheezing Albuterol/Ipratropium 3 ml 01/05/20 10:30 01/11/20 10:50 Duoneb NEB 3 ml [id number] RAGHU Administration Alprazolam 1 mg 01/05/20 09:27 01/11/20 10:03 Xanax PO 1 mg BIDPRN PRN Administration Anxiety Amlodipine Besylate 10 mg 01/06/20 09:00 01/11/20 09:27 Norvasc PO 10 mg DAILY RAGHU Administration Aspirin 325 mg 01/05/20 09:00 01/11/20 09:29 Ecotrin PO 325 mg DAILY RAGHU Administration Atorvastatin Calcium 20 mg 01/06/20 21:00 01/10/20 21:08 Lipitor PO 20 mg HS RAGHU Administration Calcitriol 0.5 mcg 01/06/20 09:00 01/11/20 09:27 Rocaltrol PO 0.5 mcg DAILY RAGHU Administration Cholecalciferol 1,000 units 01/06/20 09:00 01/11/20 09:28 Vitamin D3 PO 1,000 units DAILY RAGHU Administration Clonidine 0.1 mg 01/05/20 21:00 01/11/20 09:28 Catapres PO 0.1 mg BID RAGHU Administration Donepezil HCl 5 mg 01/06/20 09:00 01/11/20 09:27 Aricept PO 5 mg DAILY RAGHU Administration Epoetin Inderjit-epbx 7,500 unit 01/08/20 09:45 01/08/20 13:08 Retacrit [place] 7,500 unit Q7D RAGHU Administration Ferrous Sulfate 325 mg 01/05/20 21:00 01/11/20 09:28 Feosol PO 325 mg BID RAGHU Administration Hydralazine HCl 25 mg 01/09/20 15:00 01/11/20 09:28 Apresoline PO 25 mg TID RAGHU Administration Cefepime HCl 1 gm/ Sodium 100 mls @ 200 mls/hr 01/06/20 11:00 01/11/20 11:25 Chloride IVPB 100 mls Q24HR RAGHU Administration Vancomycin HCl 1 gm/ Device 200 mls @ 200 mls/hr 01/05/20 12:00 01/06/20 11: 36 IVPB 200 mls WILLCALL RAGHU Administration Vancomycin HCl 750 mg/ Sodium 250 mls @ 250 mls/hr 01/05/20 12:00 01/11/20 13 :16 Chloride IVPB 250 mls WILLCALL RAGHU Administration Lidocaine 2 patch 01/06/20 17:00 01/10/20 17:39 Lidoderm 5% Patch TD 2 patch 1700 RAGHU Administration Losartan Potassium 25 mg 01/06/20 09:00 01/11/20 09:28 Cozaar PO 25 mg DAILY RAGHU Administration Methylprednisolone Sodium Succinate 20 mg 01/05/20 14:00 01/11/20 05:55 Solu-Medrol IVP 20 mg Q8HR RAGHU Administration Miscellaneous Medication 1 each 01/07/20 05:00 01/11/20 05:55 Lidocaine Patch Removal TOP 1 each 0500 RAGHU Administration Morphine Sulfate 2 mg 01/05/20 10:54 01/10/20 18:20 Morphine SLOW IVP 2 mg Q8H PRN Administration Severe Pain (7-10) Ondansetron HCl 4 mg 01/08/20 10:17 01/10/20 05:31 Zofran IVP 4 mg Q6H PRN Administration Nausea/Vomiting Paroxetine HCl 40 mg 01/06/20 09:00 01/11/20 09:27 Paxil PO 40 mg DAILY RAGHU Administration Ropinirole HCl 0.5 mg 01/05/20 21:00 01/10/20 21:09 Requip PO 0.5 mg HS RAGHU Administration Sodium Chloride 10 ml 01/05/20 21:00 01/11/20 09:39 Flush - Normal Saline IVF 10 ml Q12HR RAGHU Administration Sodium Chloride 10 ml 01/05/20 11:12 01/11/20 09:39 Flush - Normal Saline IVF 10 ml PRN PRN Administration Saline Flush - Exam General Appearance: NAD, awake alert Eye: PERRL, anicteric sclera ENT: normocephalic atraumatic Neck: supple, no JVD Heart: RRR, no murmur, no gallops Respiratory: CTAB Gastrointestinal: soft, non-tender, non-distended, normal bowel sounds Extremities: no cyanosis, no clubbing Skin: normal turgor Neurological: cranial nerve grossly intact, no focal deficits Psychiatric: A&O x 3 Hosp A/P (1) Discitis Code(s): M46.40 - DISCITIS, UNSPECIFIED, SITE UNSPECIFIED Status: Acute Qualifiers: Spinal region: thoracic Qualified Code(s): M46.44 - Discitis, unspecified, thoracic region (2) ESRD (end stage renal disease) on dialysis Code(s): N18.6 - END STAGE RENAL DISEASE; Z99.2 - DEPENDENCE ON RENAL DIALYSIS Status: Chronic (3) COPD (chronic obstructive pulmonary disease) Status: Chronic Qualifiers: COPD type: chronic bronchitis (4) Hyponatremia Code(s): E87.1 - HYPO-OSMOLALITY AND HYPONATREMIA Status: Acute - Plan Continue IV vancomycin and cefepime for osteomyelitis of T10-11. The patient will require 4 weeks of IV antibiotics. End date of antibiotics is February 17. S/P placement of Nunes Cath. Hyponatremia is worsening. Consult nephrology to adjust PD. Disposition: Inpatient Rehab tomorrow.
[2020-01-11] MEDS: Morphine 2 MG/ML SYRINGE SLOW IVP PRN ×2 (14:27→21:13)
[2020-01-11] MEDS ORDERED: Lidocaine 1% PF 5 ML VIAL ONE (14:44)
[2020-01-11] MEDS ORDERED: PROPOFOL 200 MG/20 ML VIAL ONE (14:45)
[2020-01-11] MEDS: Lidocaine 5% Patch TD SCH (17:35)
[2020-01-11] MEDS: rOPINIRole HCl 0.25 MG TAB PO SCH (19:59)
[2020-01-11] MEDS: Atorvastatin Calcium 20 MG TAB PO SCH (19:59)
[2020-01-12] MEDS: HYDROcodone/Acetaminophen 5/325 mg Tablet PO PRN ×2 (02:31→20:09)
[2020-01-12] MEDS: methylPREDNISolone Sod Succ 40 MG VIAL IVP SCH ×3 (05:04→21:25)
[2020-01-12] MEDS: Morphine 2 MG/ML SYRINGE SLOW IVP PRN (05:04)
[2020-01-12] MEDS: Lidocaine Patch Removal 1 EACH TOP SCH (05:05)
[2020-01-12 06:35] LABS: Band 3 % (5-11); Hemoglobin 11.6 g/dL (12.0-16.0); Lymphocytes 8 % (21-51); MDiff Complete? YES; Mean Corpuscular HGB CONC 32.5 g/dL (32.0-36.0); Mean Corpuscular Hemoglobin 29.5 pg (27.0-31.0); Mean Corpuscular Volume 90.7 fL (78.0-98.0); Mean Platelet Volume 7.5 fL (7.4-10.4); Metamyelocyte 1 % (0-0); Monocytes 11 % (0-10); Myelocyte 3 % (0-0); Neutrophil 74 % (42-75); Platelet Count 315 thou/uL (130-400); RBC Distribution Width 14.1 % (11.5-14.5); Red Blood Cell (RBC) Count 3.95 mill/uL (4.20-5.40)
[2020-01-12] MEDS: Donepezil HCl 5 MG TAB PO SCH (08:19)
[2020-01-12] MEDS: Amlodipine 10 MG TAB PO SCH (08:19)
[2020-01-12] MEDS: Ferrous Sulfate 325 MG TAB PO SCH ×2 (08:19→20:12)
[2020-01-12] MEDS: Calcitriol 0.25 MCG CAP PO SCH (08:20)
[2020-01-12] MEDS: PARoxetine 20 MG TAB PO SCH (08:21)
[2020-01-12] MEDS: cloNIDine 0.1 MG TAB PO SCH ×2 (08:21→20:11)
[2020-01-12] MEDS: hydrALAZINE 25 MG TAB PO SCH ×3 (08:21→20:12)
[2020-01-12] MEDS: Aspirin 325 mg Enteric Coated Tablet PO SCH (08:21)
[2020-01-12] MEDS: Losartan 25 MG TAB PO SCH (08:22)
[2020-01-12] MEDS: ALPRAZolam 1 MG TAB PO PRN ×2 (08:22→20:10)
[2020-01-12 09:31] LABS: Vancomycin, Random 17.5 ug/mL (See Comment)
--- NOTE | 2020-01-12 09:56 | PRG ---
DATE OF SERVICE: 01/12/2020 SUBJECTIVE: Ms. Park is a 64-year-old white female with ESRD and followed up by the Renal Service for her peritoneal dialysis. She underwent peritoneal dialysis last night without any difficulty. In addition, Nunes catheter has been placed. She was diagnosed with osteomyelitis and the plan is for her to receive several weeks of antibiotics. We are awaiting rehab placement. No new complaints. No chest pain or shortness of breath. OBJECTIVE: VITAL SIGNS: Blood pressure 148/68, heart rate 76, respiratory rate 20, and pulse ox 96%. GENERAL: Awake, alert, and comfortable, not in distress. SKIN: Adequate turgor. HEENT: Pinkish conjunctivae. Anicteric sclerae. No neck mass. No carotid bruits. No JVD. CHEST: No deformities. LUNGS: Clear breath sounds. HEART: Normal sinus rhythm. No murmur. No gallops. No rubs. ABDOMEN: Globular, soft, and nontender. No masses. EXTREMITIES: No edema. No deformities. Positive for PD catheter. MEDICATIONS: January 12, 2020, was reviewed. LABORATORY DATA: January 12, 2020; white count 18, hemoglobin 11.6. January 09, 2020; sodium 126, potassium 4.3, chloride 87, carbon dioxide 27, BUN 60, creatinine 6.57, and calcium 9. ASSESSMENT AND PLAN: 1. End-stage renal disease, stable. We will continue current CCPD regimen, tolerating ultrafiltration. No changes will be made with the current PD regimen. 2. Osteomyelitis-on IV antibiotics for several weeks. ID following. 3. Agree with current management. Job ID: [id number]
--- NOTE | 2020-01-12 09:57 | OP ---
DATE OF PROCEDURE: 01/11/2020 PREOPERATIVE DIAGNOSES: 1. End-stage renal disease, on peritoneal dialysis. 2. No functioning fistula due to inadequate veins. 3. Discitis. 4. Osteomyelitis. 5. Need of IV access for outpatient antibiotic administration. POSTOPERATIVE DIAGNOSES: 1. End-stage renal disease, on peritoneal dialysis. 2. No functioning fistula due to inadequate veins. 3. Discitis. 4. Osteomyelitis. 5. Need of IV access for outpatient antibiotic administration. PROCEDURES PERFORMED: 1. Placement of left internal jugular Nunes catheter, dual lumen. 2. Fluoroscopy and ultrasound used. Note, occluded right internal jugular not visualized on ultrasound. ANESTHESIA: Intravenous sedation and local with 0.5% Marcaine with epinephrine 30 mL mixed with 1% Xylocaine with epinephrine 20 mL. DESCRIPTION OF PROCEDURE: The patient was taken to the operating room, where under intravenous sedation, neck and chest were prepared with ChloraPrep and draped in routine fashion. Local anesthetic was infiltrated in the skin and subcutaneous tissue about the operative site. Right internal jugular vein interrogated with ultrasound and not visualized. It was thrombosed due to previous access. Left IJ was patent and cannulated with a trocar and catheter, threading the J-wire under fluoroscopy, directed into the superior vena cava. Skin site was enlarged sharply at the J-wire entrance site and over the left chest. Using the tunneling device, the pre-curved [employer] cuffed Nunes catheter tunneled, placed the fabric cuff beneath the skin exit site, securing it with 3-0 nylon suture, CHD dressing applied. Dilator and Peel-Away sheath placed over the J-wire under fluoroscopic visualization in the superior vena cava, and dilator and J-wire were removed, catheter placed through the Peel-Away sheath. Peel-Away sheath removed. Fluoroscopically, catheter noted to be in good position and had been tailored to proper length. It was aspirated blood, flushed with saline and heparinized saline solution 100 units per mL. The patient tolerated the procedure well. Job ID: [id number]
--- NOTE | 2020-01-12 10:29 | OP ---
DATE OF PROCEDURE: 01/11/2020 PREOPERATIVE DIAGNOSES: 1. End-stage renal disease. 2. Diskitis. 3. Osteomyelitis of spine. POSTOPERATIVE DIAGNOSES: 1. End-stage renal disease. 2. Diskitis. 3. Osteomyelitis of spine. 4. Occluded right IJ. PROCEDURE: Ultrasound fluoroscopy used to place left IJ cuffed tunneled dual lumen Nunes catheter. ANESTHESIA: TIVA, local 0.5% Marcaine 30 mL mixed with 1% Xylocaine with epinephrine 20 mL. DESCRIPTION OF PROCEDURE: The patient was taken to the operating room where under intravenous sedation, neck and chest were prepared with ChloraPrep and draped in routine fashion. Ultrasound revealed the right internal jugular vein was not patent. Left IJ was patent and cannulated with a trocar catheter, J-wire threaded requiring the straight end to be used to gain access to the superior vena cava under fluoroscopic visualization. Stab incision made at the J-wire entry site in the neck and over the left chest and dilator and Peel-Away sheath placed over the J-wire under fluoroscopic visualization of the superior vena cava. After the dual-lumen Nunes catheter been tunneled between the two incisions, placed the fabric cuff in the skin exit site. Catheter had been secured with 3-0 nylon suture to the skin and a CHD sterile dressing applied. Dilator and J-wire removed. Catheter placed with a Peel-Away sheath after tailored to length. Peel-Away sheath removed. Fluoroscopically, the catheter noted to be in good position and platysma was approximated with 4-0 Monocryl, skin with subdermal 4-0 Monocryl and [place] glue applied. Each port aspirated blood, flushed with saline and heparinized saline solution. The patient tolerated the procedure well without complications. Job ID: [id number]
[2020-01-12] MEDS: Cefepime 1 GM in Sodium Chloride 0.9% 100 ML IVPB SCH (12:49)
--- NOTE | 2020-01-12 13:54 | PDOC.HOSPP ---
- Subjective Encounter Date: 01/12/20 Subjective: No new complaints. - Objective Vital Signs & Weight: Vital Signs (12 hours) Temp Pulse Resp BP BP BP Pulse Ox 01/12/20 11:13 97.9 F 77 14 134/56 L 92 L 01/12/20 08:21 76 148/68 H 01/12/20 08:19 76 01/12/20 08:00 94 L 01/12/20 07:23 76 20 96 01/12/20 07:08 97.8 F 69 16 152/68 H 92 L 01/12/20 03:00 97.8 F 66 18 145/73 H 94 L 01/12/20 02:11 71 18 94 L Weight Weight 121 lb 6 oz I&O: 01/11/20 01/12/20 01/13/20 06:59 06:59 06:59 Intake Total 240 1585 Output Total 275 Balance 240 1310 Result Diagrams: 01/12/20 05:01 01/09/20 05:01 Hospitalist ROS - Medication Medications: Active Medications Generic Name Dose Route Start Last Admin Trade Name Freq PRN Reason Stop Dose Admin Hydrocodone Bitart/Acetaminophen 1 tab 01/05/20 10:52 01/12/20 02:31 [place] 5/325 PO 1 tab Q4H PRN Administration Mild Pain (1-3) Albuterol Sulfate 2.5 mg 01/05/20 09:14 01/05/20 09:34 Ventolin NEB 2.5 mg Q4H PRN Administration SOB &/or Wheezing Albuterol/Ipratropium 3 ml 01/05/20 10:30 01/12/20 12:58 Duoneb NEB Not Given B4IS-OF RAGHU Alprazolam 1 mg 01/05/20 09:27 01/12/20 08:22 Xanax PO 1 mg BIDPRN PRN Administration Anxiety Amlodipine Besylate 10 mg 01/06/20 09:00 01/12/20 08:19 Norvasc PO 10 mg DAILY RAGHU Administration Aspirin 325 mg 01/05/20 09:00 01/12/20 08:21 Ecotrin PO 325 mg DAILY RAGHU Administration Atorvastatin Calcium 20 mg 01/06/20 21:00 01/11/20 19:59 Lipitor PO 20 mg HS RAGHU Administration Calcitriol 0.5 mcg 01/06/20 09:00 01/12/20 08:20 Rocaltrol PO 0.5 mcg DAILY RAGHU Administration Cholecalciferol 1,000 units 01/06/20 09:00 01/12/20 08:20 Vitamin D3 PO 1,000 units DAILY RAGHU Administration Clonidine 0.1 mg 01/05/20 21:00 01/12/20 08:21 Catapres PO 0.1 mg BID RAGHU Administration Donepezil HCl 5 mg 01/06/20 09:00 01/12/20 08:19 Aricept PO 5 mg DAILY RAGHU Administration Epoetin Inderjit-epbx 7,500 unit 01/08/20 09:45 01/08/20 13:08 Retacrit SC 7,500 unit Q7D RAGHU Administration Ferrous Sulfate 325 mg 01/05/20 21:00 01/12/20 08:19 Feosol PO 325 mg BID RAGHU Administration Hydralazine HCl 25 mg 01/09/20 15:00 01/12/20 08:21 Apresoline PO 25 mg TID RAGHU Administration Cefepime HCl 1 gm/ Sodium 100 mls @ 200 mls/hr 01/06/20 11:00 01/12/20 12:49 Chloride IVPB 100 mls Q24HR RAGHU Administration Vancomycin HCl 1 gm/ Device 200 mls @ 200 mls/hr 01/05/20 12:00 01/06/20 11: 36 IVPB 200 mls WILLCALL RAGHU Administration Vancomycin HCl 750 mg/ Sodium 250 mls @ 250 mls/hr 01/05/20 12:00 01/11/20 13 :16 Chloride IVPB 250 mls WILLCALL RAGHU Administration Lidocaine 2 patch 01/06/20 17:00 01/11/20 17:35 Lidoderm 5% Patch TD 2 patch 1700 RAGHU Administration Losartan Potassium 25 mg 01/06/20 09:00 01/12/20 08:22 Cozaar PO 25 mg DAILY RAGHU Administration Methylprednisolone Sodium Succinate 20 mg 01/05/20 14:00 01/12/20 05:04 Solu-Medrol IVP 20 mg Q8HR RAGHU Administration Miscellaneous Medication 1 each 01/07/20 05:00 01/12/20 05:05 Lidocaine Patch Removal TOP 1 each 0500 RAGHU Administration Morphine Sulfate 2 mg 01/05/20 10:54 01/12/20 05:04 Morphine SLOW IVP 2 mg Q8H PRN Administration Severe Pain (7-10) Ondansetron HCl 4 mg 01/08/20 10:17 01/10/20 05:31 Zofran IVP 4 mg Q6H PRN Administration Nausea/Vomiting Paroxetine HCl 40 mg 01/06/20 09:00 01/12/20 08:21 Paxil PO 40 mg DAILY RAGHU Administration Ropinirole HCl 0.5 mg 01/05/20 21:00 01/11/20 19:59 Requip PO 0.5 mg HS RAGHU Administration Sodium Chloride 10 ml 01/05/20 21:00 01/12/20 12:50 Flush - Normal Saline IVF 10 ml Q12HR RAGHU Administration Sodium Chloride 10 ml 01/05/20 11:12 01/11/20 09:39 Flush - Normal Saline IVF 10 ml PRN PRN Administration Saline Flush - Exam General Appearance: NAD Eye: PERRL, anicteric sclera ENT: normocephalic atraumatic Neck: supple Heart: RRR, no murmur, no gallops, no rubs Respiratory: CTAB, no wheezes, no rales, no ronchi Gastrointestinal: soft, non-tender, non-distended, normal bowel sounds Neurological: cranial nerve grossly intact, no focal deficits Hosp A/P (1) Discitis Code(s): M46.40 - DISCITIS, UNSPECIFIED, SITE UNSPECIFIED Status: Acute Qualifiers: Spinal region: thoracic Qualified Code(s): M46.44 - Discitis, unspecified, thoracic region (2) ESRD (end stage renal disease) on dialysis Code(s): N18.6 - END STAGE RENAL DISEASE; Z99.2 - DEPENDENCE ON RENAL DIALYSIS Status: Chronic (3) COPD (chronic obstructive pulmonary disease) Status: Chronic Qualifiers: COPD type: chronic bronchitis (4) Hyponatremia Code(s): E87.1 - HYPO-OSMOLALITY AND HYPONATREMIA Status: Acute - Plan Continue IV vancomycin and cefepime for osteomyelitis of T10-11. The patient will require 4 weeks of IV antibiotics. End date of antibiotics is February 17. S/P placement of Nunes Cath. Continue PD per nephrology recommendations Disposition: IR on 01/13.
[2020-01-12 14:39] LABS: Anion Gap 17 mmol/L (10-20); BUN (Urea Nitrogen) 78 mg/dL (9.8-20.1); Calc. Creatinine Clearance 7 mL/min (70-130); Calcium 8.6 mg/dL (7.8-10.44); Carbon Dioxide 24 mmol/L (23-31); Chloride 93 mmol/L (98-107); Estimated GFR-MDRD 6; Glucose 133 mg/dL (80-115); Potassium 4.8 mmol/L (3.5-5.1); Sodium 129 mmol/L (136-145)
--- NOTE | 2020-01-12 16:35 | PRG ---
DATE OF SERVICE: 01/12/2020 SUBJECTIVE: Feeling better. Less pain in the back area and in the sides. A little bit of cough, but not as much as before. No dyspnea. Voiding without difficulty. No diarrhea. OBJECTIVE: VITAL SIGNS: She has been afebrile throughout. Other vital signs are okay. O2 sats 98%. GENERAL: Appears in no distress. Nunes catheter has been placed in the left side. LUNGS: Clear to auscultation and percussion. HEART: S1-S2 regular rate. ABDOMEN: Soft. Not distended or tender. White cell count for some reason went up to 18.8, maybe because of the procedure, it is now 18,000. Hemoglobin is 11.6. The differential shows decrease in neutrophil percentage to 74 though. Chemistries not remarkable. Peritoneal dialysis is not bothering her. No changes are noted. ASSESSMENT AND DISCUSSION: End-stage renal disease, unknown primary etiology, peritoneal dialysis, coronary artery disease, chronic obstructive pulmonary disease, chronic smoking, and thoracic spine diskitis, osteomyelitis with epidural abscess, on cefepime and vancomycin. She is going to continue receiving the treatment through the Nunes catheter with the doses adjusted for renal function. Vancomycin level have to be monitored at least twice a week to verify therapeutic levels. The last vancomycin trough was 17.5. The cefepime will be given once a day 1 g on dialysis days. The dose to be given following dialysis. The end date of therapy is estimated February 15. Weekly labs as noted above. Endpoint will be improvement in pain. She will need a repeat MRI of the spine to verify improvement of the changes. Job ID: [id number]
[2020-01-12] MEDS: Lidocaine 5% Patch TD SCH (17:35)
[2020-01-12] MEDS: rOPINIRole HCl 0.25 MG TAB PO SCH (20:11)
[2020-01-12] MEDS: Atorvastatin Calcium 20 MG TAB PO SCH (20:13)
[2020-01-13] MEDS: methylPREDNISolone Sod Succ 40 MG VIAL IVP SCH (05:18)
[2020-01-13] MEDS: Lidocaine Patch Removal 1 EACH TOP SCH (05:38)
[2020-01-13 06:02] LABS: Hemoglobin 11.8 g/dL (12.0-16.0); Mean Corpuscular HGB CONC 33.4 g/dL (32.0-36.0); Mean Corpuscular Hemoglobin 30.5 pg (27.0-31.0); Mean Corpuscular Volume 91.5 fL (78.0-98.0); Mean Platelet Volume 7.9 fL (7.4-10.4); Platelet Count 299 thou/uL (130-400); RBC Distribution Width 14.4 % (11.5-14.5); Red Blood Cell (RBC) Count 3.88 mill/uL (4.20-5.40); White Blood Cell (WBC) Count 20.4 thou/uL (4.8-10.8)
[2020-01-13] MEDS: HYDROcodone/Acetaminophen 5/325 mg Tablet PO PRN ×2 (06:11→12:46)
[2020-01-13 06:26] LABS: Band 3 % (5-11); Lymphocytes 6 % (21-51); MDiff Complete? YES; Monocytes 10 % (0-10); Myelocyte 6 % (0-0); Neutrophil 75 % (42-75)
[2020-01-13] MEDS: Amlodipine 10 MG TAB PO SCH (08:09)
[2020-01-13] MEDS: cloNIDine 0.1 MG TAB PO SCH (08:09)
[2020-01-13] MEDS: Donepezil HCl 5 MG TAB PO SCH (08:09)
[2020-01-13] MEDS: Calcitriol 0.25 MCG CAP PO SCH (08:09)
[2020-01-13] MEDS: Ferrous Sulfate 325 MG TAB PO SCH (08:10)
[2020-01-13] MEDS: PARoxetine 20 MG TAB PO SCH (08:10)
[2020-01-13] MEDS: hydrALAZINE 25 MG TAB PO SCH (08:10)
[2020-01-13] MEDS: Losartan 25 MG TAB PO SCH (08:10)
[2020-01-13] MEDS: ALPRAZolam 1 MG TAB PO PRN (08:10)
[2020-01-13] MEDS: Aspirin 325 mg Enteric Coated Tablet PO SCH (08:10)
[2020-01-13 08:15] VITALS: BP 151/68
[2020-01-13 08:21] LABS: Vancomycin, Random 14.9 ug/mL (See Comment)
--- NOTE | 2020-01-13 10:57 | PRG ---
DATE OF SERVICE: 01/13/2020 SUBJECTIVE: Ms. Park is a 64-year-old white female with ESRD and followed by the [facility] for her maintenance peritoneal dialysis. She is tolerating the current peritoneal dialysis regimen. She was also diagnosed to have osteomyelitis. For that reason, she is on IV antibiotics and will have it till the middle of January. No other complaints today. No chest pain or shortness of breath. OBJECTIVE: VITAL SIGNS: Blood pressure is 151/68, heart rate 75, respiratory rate 14, O2 saturation 94%. GENERAL: Patient is awake, alert, comfortable, not in overt distress. SKIN: Adequate turgor. HEENT: She has a pinkish conjunctivae. Anicteric sclerae. NECK: No neck mass. No carotid bruits. No JVD. CHEST: No deformities. LUNGS: Clear breath sounds. No wheezing. No crackles. HEART: Normal sinus rhythm. No murmur. No gallops. No rubs. ABDOMEN: Globular. Soft. Nontender. No masses. EXTREMITIES: No edema. No deformities. Positive for PD catheter. MEDICATIONS: Medications of January 13, 2020, were reviewed. LABORATORY DATA: Laboratories of January 13, 2020; white count 20.4, hemoglobin 11.8. ASSESSMENT AND PLAN: 1. End-stage renal disease, stable. We will continue current CCPD regimen, tolerating peritoneal dialysis. No changes with the current peritoneal dialysis regimen. She is tolerating ultrafiltration. 2. Osteomyelitis, currently on IV antibiotics. ID following. 3. Hypertension, continue current BP medications. 4. Agree with current management. Job ID: [id number]
[2020-01-13] MEDS: Cefepime 1 GM in Sodium Chloride 0.9% 100 ML IVPB SCH (11:04)
[2020-01-13 11:24] VITALS: TEMP 98.1
--- NOTE | 2020-01-13 17:33 | EKG ---
Test Reason : ABD PAIN Blood Pressure : / mmHG Vent. Rate : 098 BPM Atrial Rate : 098 BPM P-R Int : 140 ms QRS Dur : 078 ms QT Int : 374 ms P-R-T Axes : 087 -44 071 degrees QTc Int : 477 ms Normal sinus rhythm Possible Left atrial enlargement Left axis deviation Septal infarct , age undetermined Abnormal ECG Confirmed by SOPHIE ESPINOZA M.D. ([id number]), supervising editor news reel SERGIO PARK ([id number]) on 01/13/2020 5:33:01 PM Referred By: Confirmed By:SOPHIE ESPINOZA M.D.
--- NOTE | 2020-01-14 02:42 | DIS ---
DATE OF ADMISSION: 01/05/2020 DATE OF DISCHARGE: 01/13/2020 HISTORY OF PRESENT ILLNESS AND HOSPITAL COURSE: This is a 64-year-old female with past medical history of end-stage renal disease, on peritoneal dialysis, hypertension, hyperlipidemia, COPD, CHF, and coronary artery disease, who presented to the emergency department with complaints of right-sided flank pain and upper quadrant pain. Her initial imaging revealed dilated intra and extrahepatic biliary system; however, those findings were deemed to be chronic based on prior imaging for comparison. Upon further examination, the patient's pain was more localized to her spine and an MRI was performed to the thoracic spine, which revealed findings of abnormal edema with anterior wedging of T11-T12 suggesting presence of diskitis and osteomyelitis. The patient was started on IV vancomycin and cefepime per ID recommendations. Cultures were obtained, but did not show any significant growth. She underwent peritoneal dialysis under the care of Nephrology during her hospital stay. The patient tolerated her antibiotics well. Subsequently, a Nunes catheter was placed by the surgery team in progression for outpatient antibiotics. We recommend continuing both vancomycin and cefepime until February 17 per ID recommendations. The patient will be placed in inpatient rehab. DISCHARGE DIAGNOSES: 1. Diskitis. 2. End-stage renal disease, on peritoneal dialysis. 3. Chronic obstructive pulmonary disease. 4. Hyponatremia. 5. Dilated biliary tree. Chronic in nature. DISCHARGE MEDICATIONS: 1. Cefepime 1 g IV daily for 36 days. 2. Vancomycin 1 g IV daily for 36 days. This medication should be monitored and dosed by pharmacy. 3. Prednisone 40 mg orally daily for 5 days. 4. Amlodipine 10 mg orally daily. 5. Alprazolam 1 mg orally twice daily as needed for anxiety. 6. Aspirin 325 mg orally daily. 7. Atorvastatin 20 mg orally daily. 8. Calcitriol 0.5 mcg orally daily. 9. Calcium carbonate 1000 mg orally every 4 hours as needed for indigestion. 10. Vitamin D3 one tab orally daily 1000 units. 11. Clonidine 0.1 mg orally twice daily. 12. Donepezil 5 mg orally daily. 13. Ferrous sulfate 325 mg orally daily. 14. Hydralazine 25 mg orally daily. 15. Trufant 5 mg/325 mg orally q.4 hours as needed for pain. 16. DuoNeb 3 mg q.4 hours p.r.n. for shortness of breath or wheezing. 17. Lidocaine patch one patch daily applied to the back. 18. Losartan 25 mg orally daily. 19. Paroxetine 40 mg orally daily. 20. Ropinirole 0.5 mg orally nightly. Job ID: [id number]
== END 2020-01-13 13:23 | DRG 539 ==
LOC: ERS 01:05 → 2SE 03:45 → OBSVTOIN 10:47 → SJJU 17:02
PROVIDERS: ADMIT Internal Medicine; ATTEND Internal Medicine
PROC: 02HV33Z Insertion of Infusion Device into Superior Vena Cava, Percutaneous Approach (ICD-10-PCS; principal; 2020-01-05)
PROC: B5181ZA Fluoroscopy of Superior Vena Cava using Low Osmolar Contrast, Guidance (ICD-10-PCS; 2020-01-05)
PROC: 0JH63XZ Insertion of Tunneled Vascular Access Device into Chest Subcutaneous Tissue and Fascia, Percutaneous Approach (ICD-10-PCS; 2020-01-11)
PROC: 02HV33Z Insertion of Infusion Device into Superior Vena Cava, Percutaneous Approach (ICD-10-PCS; 2020-01-11)
PROC: B548ZZA Ultrasonography of Superior Vena Cava, Guidance (ICD-10-PCS; 2020-01-11)
PROC: B5181ZA Fluoroscopy of Superior Vena Cava using Low Osmolar Contrast, Guidance (ICD-10-PCS; 2020-01-11)
PROC: 5A1D70Z Performance of Urinary Filtration, Intermittent, Less than 6 Hours Per Day (ICD-10-PCS; 2020-01-12)
DX: M46.24 Osteomyelitis of vertebra, thoracic region (principal); N18.6 End stage renal disease; I13.2 Hypertensive heart and chronic kidney disease with heart failure and with stage 5 chronic kidney disease, or end stage renal disease; E87.1 Hypo-osmolality and hyponatremia; Z94.0 Kidney transplant status; N25.81 Secondary hyperparathyroidism of renal origin; E44.0 Moderate protein-calorie malnutrition; I24.8 Other forms of acute ischemic heart disease; E87.2 Acidosis; M46.44 Discitis, unspecified, thoracic region; D63.1 Anemia in chronic kidney disease; F03.90 Unspecified dementia, unspecified severity, without behavioral disturbance, psychotic disturbance, mood disturbance, and anxiety; I50.9 Heart failure, unspecified; E78.5 Hyperlipidemia, unspecified; J44.9 Chronic obstructive pulmonary disease, unspecified; I25.10 Atherosclerotic heart disease of native coronary artery without angina pectoris; G25.81 Restless legs syndrome; F41.8 Other specified anxiety disorders; E78.00 Pure hypercholesterolemia, unspecified; I25.5 Ischemic cardiomyopathy; G89.29 Other chronic pain; G47.00 Insomnia, unspecified; F17.210 Nicotine dependence, cigarettes, uncomplicated; Z99.2 Dependence on renal dialysis; Z90.49 Acquired absence of other specified parts of digestive tract; Z90.710 Acquired absence of both cervix and uterus; I25.2 Old myocardial infarction; Z88.8 Allergy status to other drugs, medicaments and biological substances; Z91.040 Latex allergy status; Z86.73 Personal history of transient ischemic attack (TIA), and cerebral infarction without residual deficits
CPT/HCPCS: 36415; 71045; 72146; 74177; 74181; 80048; 80053; 80202; 81003; 81015; 82553; 83605; 83690; 84484; 85007; 85025; 85027; 86140; 87040; 90945; 93005; 93306; 94640; 96374; 96375; 96376; C1751; G0257; J0360; J0692; J1642; J2001; J2270; J2405; J2704; J2765; J2920; J3010; J3370; J3490; J7050; J7611; J7620; Q0163; Q5105; Q9967; S0020

== ENCOUNTER 2020-01-27 08:30 | Observation (INO) | payer MEDICARE ==
[2020-01-27] MEDS ORDERED: Morphine 4 MG/ML VIAL ONE ×2 (09:17→09:43)
[2020-01-27] MEDS ORDERED: Ondansetron PF 4 MG/2 ML Vial ONE (09:17)
--- NOTE | 2020-01-27 09:37 | CT ---
EXAM: CT thoracic spine: Multiple tomograms obtained without contrast. INDICATIONS: Back pain. History of discitis osteomy last at T11-T12. This is been described on prior MRI thoracic spine. COMPARISON: CT spine 01/05/2020 FINDINGS: Disc space irregularity and narrowing at T11-T12 again noted. Anterior wedging involving th e T11-T12 vertebra again noted. Endplate sclerosis. Findings continued to be consistent with discitis osteomyelitis at the T11-T12 disc space. Degenerative changes at the T10-T11 disc space again noted and appear stable. Thoracic vertebra are otherwise maintain height and alignment. No evidence of new compression or frac ture. IMPRESSION: 1. Disc narrowing with irregular endplates at T11-T12 appear stable from the prior MRI. Findings cons istent with discitis osteomyelitis at this level.
[2020-01-27 09:57] LABS: Band 1 % (5-11); Hemoglobin 13.9 g/dL (12.0-16.0); Lymphocytes 7 % (21-51); MDiff Complete? YES; Mean Corpuscular HGB CONC 32.8 g/dL (32.0-36.0); Mean Corpuscular Hemoglobin 30.8 pg (27.0-31.0); Mean Corpuscular Volume 94.1 fL (78.0-98.0); Mean Platelet Volume 10.3 fL (7.4-10.4); Monocytes 2 % (0-10); Neutrophil 90 % (42-75); Nucleated RBC 1 % (0); Platelet Count 125 thou/uL (130-400); RBC Distribution Width 17.5 % (11.5-14.5); Red Blood Cell (RBC) Count 4.52 mill/uL (4.20-5.40); White Blood Cell (WBC) Count 23.8 thou/uL (4.8-10.8)
[2020-01-27 09:58] LABS: ALT (SGPT) 88 U/L (8-55); AST (SGOT) 37 U/L (5-34); Albumin 3.1 g/dL (3.4-4.8); Alkaline Phosphatase 59 U/L (40-110); Anion Gap 21 mmol/L (10-20); BUN (Urea Nitrogen) 68 mg/dL (9.8-20.1); Bilirubin, Total 0.5 mg/dL (0.2-1.2); Calc. Creatinine Clearance 0 mL/min (70-130); Calcium 8.7 mg/dL (7.8-10.44); Carbon Dioxide 18 mmol/L (23-31); Chloride 97 mmol/L (98-107); Estimated GFR-MDRD 5; Globulin 2.9 g/dL (2.4-3.5); Glucose 76 mg/dL (80-115); Potassium 4.2 mmol/L (3.5-5.1); Sodium 132 mmol/L (136-145)
--- NOTE | 2020-01-27 10:21 | CT ---
CT LUMBAR SPINE WITHOUT CONTRAST: Date: 01/27/2020 INDICATION: Back pain. Fell from bed. FINDINGS: Lumbar vertebra maintain normal height. Postoperative changes are noted with pedicle screws transfixi ng L4 and L5. No evidence of lumbar vertebral compression, fracture, or other acute process. The disc spaces are preserved. Disc bulge at L2-3 results in mild central canal stenosis. At L3-4, there is mild disc bulge and facet hypertrophy with mild central canal stenosis. At L4-5, there is broad based disc bulge and posterior laminectomy change. Mild central canal stenosi s and mild foraminal stenosis. At L5-S1, there is mild disc bulge. No significant central canal or foraminal stenosis. IMPRESSION: There are postoperative and degenerative changes of the lumbar spine. No acute fracture or compressio n. POS: [facility]
[2020-01-27] MEDS ORDERED: Senokot S 8.6-50 MG TAB PO PRN (13:44)
[2020-01-27] MEDS ORDERED: Acetaminophen 325 MG TAB PO PRN (13:44)
[2020-01-27] MEDS ORDERED: Calcium Carbonate 500 MG ChewTAB PO PRN ×2 (13:44→19:33)
[2020-01-27] MEDS ORDERED: HYDROcodone/Acetaminophen 10/325 mg Tablet ONE (13:57)
[2020-01-27 15:46] VITALS: BMI 29.0
[2020-01-27] MEDS ORDERED: Vancomycin 1.5 GRAM/300 ML BAG 1.5 GM in Premix Bag 1 BAG IVPB SCH (18:00)
[2020-01-27] MEDS ORDERED: Vancomycin HCl 250 MG in Sodium Chloride 0.9% 100 ML IVPB SCH (18:45)
[2020-01-27] MEDS ORDERED: Vancomycin HCl 1 GM in Premix Bag 1 BAG IVPB SCH (18:45)
[2020-01-27] MEDS ORDERED: Vancomycin HCl 500 MG in Sodium Chloride 0.9% 100 ML IVPB SCH (18:45)
[2020-01-27] MEDS ORDERED: HOLD VANCOMYCIN FOR LEVEL >20 FS SCH (18:45)
[2020-01-27] MEDS ORDERED: Vancomycin HCl 750 MG in Sodium Chloride 0.9% 250 ML 250 ML IVPB SCH (18:45)
[2020-01-27] MEDS ORDERED: Vancomycin Sliding Scale 1 EACH FS ONE (18:45)
[2020-01-27] MEDS ORDERED: ALPRAZOLAM PO PRN (19:33)
[2020-01-27] MEDS ORDERED: Ondansetron ODT 4 MG TAB PO PRN (19:33)
[2020-01-27] MEDS ORDERED: HYDROcodone/Acetaminophen 5/325 mg Tablet PO PRN (19:33)
[2020-01-27] MEDS ORDERED: Cefepime 1 GM in Sodium Chloride 0.9% 100 ML IVPB SCH (20:00)
--- NOTE | 2020-01-27 20:35 | HP ---
CHIEF COMPLAINT: Generalized weakness. HISTORY OF PRESENT ILLNESS: The patient is a 64-year-old white female with recent diskitis, presented to the emergency room with above complaints. The patient was discharged from this facility approximately 2 weeks ago to inpatient rehab. She was discharged from inpatient rehab yesterday. The patient fell from the bed earlier today. The height was less than 3 feet. Since then, she has significant low back pain. The pain was moderate to severe in intensity, worse with movement. She denies any relieving factor. She denies any saddle anesthesia or new bladder or bowel incontinence. No fever or chills reported. PAST MEDICAL HISTORY: 1. Recent diskitis/osteomyelitis, on vancomycin and cefepime. 2. End-stage renal disease, on peritoneal dialysis. 3. Hypertension. 4. Hyperlipidemia. 5. COPD. 6. Coronary artery disease. PAST SURGICAL HISTORY: 1. Left kidney transplant. 2. Cardiac catheterization. 3. Cholecystectomy. 4. Hysterectomy. 5. Back surgery. 6. Tibia-fibula fracture surgery. ALLERGIES: THE PATIENT IS ALLERGIC TO LATEX, NATURAL RUBBER, AND PROMETHAZINE. CURRENT HOME MEDICATIONS: The patient is unable to recall all of her home medications. Family to bring accurate list of medication. SOCIAL HISTORY: The patient continues to smoke up to half pack a day. Denies any alcohol or drug abuse. FAMILY HISTORY: Negative for heart disease. REVIEW OF SYSTEMS: All other review of systems was reviewed and was found negative. PHYSICAL EXAMINATION: VITAL SIGNS: In the emergency room showed temperature of 97.1, respirations 22, pulse rate of 81, blood pressure of 173/88, and O2 saturation of 100% on room air. GENERAL: A 64-year-old female in no apparent distress at this time. HEENT: Head, atraumatic and normocephalic. Sclerae anicteric. Moist mucous membranes. No oral lesion. NECK: Supple. No JVD appreciated. No carotid bruit. LUNGS: Clear to auscultation bilaterally. No wheezing, rales, or rhonchi. HEART: S1 and S2 present. Regular rate and rhythm. No rubs or gallops. There is a Nunes catheter noted on her chest. ABDOMEN: Soft, nontender. Bowel sounds present. No rebound or guarding. EXTREMITIES: No edema or calf tenderness. NEUROLOGIC: Grossly nonfocal. No new focal deficit. Power was 5/5 in all extremities. PSYCHIATRIC: Alert, awake, and oriented x3. SKIN: Warm and dry. LYMPH NODES: No palpable lymph nodes in the neck. PERIPHERAL/VASCULAR: Radial pulses palpable bilaterally. MUSCULOSKELETAL: No joint swelling or tenderness. LABORATORY FINDINGS: CBC showed WBC 23.8 with hemoglobin 13.9, hematocrit 42.5, platelets 125. Chemistry showed sodium 132, potassium 4.2, chloride 97, bicarb 18, BUN of 68, creatinine is 7.45. AST of 37, ALT of 88. Lumbar spine CT by my review was negative for acute fractures. Thoracic spine CT by my review showed findings consistent with diskitis, osteomyelitis. IMPRESSION: 1. Generalized weakness. 2. Fall secondary to #1. 3. Diskitis/osteomyelitis, on vancomycin and cefepime. 4. End-stage renal disease, on peritoneal dialysis. 5. Chronic obstructive pulmonary disease. 6. Chronic leukocytosis. 7. Hyponatremia. 8. Thrombocytopenia. PLAN: The patient will be admitted to the medical floor as 23-hour observation. Vancomycin and cefepime will be resumed. Dr. Julio has been notified for peritoneal dialysis. We will consult Physical Therapy and Occupational Therapy. We will consult continuous pillowcase cutter for detention facility evaluation. Pain control. Resume lidocaine patch. Fall precautions. The patient understands the plan of care. Job ID: [id number]
[2020-01-27] MEDS: rOPINIRole HCl 0.25 MG TAB PO SCH (20:55)
[2020-01-27] MEDS: tiZANidine HCl 4 MG TAB PO SCH (20:55)
[2020-01-27] MEDS: Ferrous Sulfate 325 MG TAB PO SCH (20:55)
[2020-01-27] MEDS: Magnesium Oxide 400 MG TAB PO SCH (20:55)
[2020-01-27] MEDS: cloNIDine 0.1 MG TAB PO SCH (20:56)
[2020-01-27] MEDS: traZODone HCl 50 MG TAB PO SCH (20:56)
[2020-01-27] MEDS: Gabapentin 300 MG CAP PO SCH (20:56)
[2020-01-27] MEDS: Atorvastatin Calcium 20 MG TAB PO SCH (20:56)
[2020-01-27] MEDS: hydrALAZINE 25 MG TAB PO SCH (20:56)
[2020-01-27] MEDS ORDERED: FLU VACC QS2019-20(6MOS UP)/PF 60 MCG/0.5 ML SYRINGE IM ONE (21:00)
[2020-01-28] MEDS: Lidocaine Patch Removal TOP SCH (04:09)
[2020-01-28 05:56] LABS: #Eosinphils 0.2 thou/uL (0.0-0.7); #Lymphocytes 0.9 thou/uL (1.20-3.40); #Monocytes 0.9 thou/uL (0.11-0.59); #Neutrophils 10.7 thou/uL (1.40-6.50); %Basophils 0.3 % (0.0-1.0); %Eosinophils 1.7 % (0.0-10.0); %Lymphocytes 7.3 % (21.0-51.0); %Monocytes 6.9 % (0.0-10.0); Hemoglobin 11.2 g/dL (12.0-16.0); Mean Corpuscular HGB CONC 32.4 g/dL (32.0-36.0); Mean Corpuscular Hemoglobin 31.1 pg (27.0-31.0); Mean Corpuscular Volume 95.9 fL (78.0-98.0); Mean Platelet Volume 8.2 fL (7.4-10.4); Platelet Count 109 thou/uL (130-400); RBC Distribution Width 17.4 % (11.5-14.5); Red Blood Cell (RBC) Count 3.59 mill/uL (4.20-5.40); White Blood Cell (WBC) Count 12.8 thou/uL (4.8-10.8)
[2020-01-28 06:22] LABS: ALT (SGPT) 60 U/L (8-55); AST (SGOT) 20 U/L (5-34); Albumin 2.4 g/dL (3.4-4.8); Alkaline Phosphatase 50 U/L (40-110); Anion Gap 17 mmol/L (10-20); BUN (Urea Nitrogen) 67 mg/dL (9.8-20.1); Bilirubin, Total 0.4 mg/dL (0.2-1.2); Calc. Creatinine Clearance 8 mL/min (70-130); Calcium 7.8 mg/dL (7.8-10.44); Carbon Dioxide 24 mmol/L (23-31); Chloride 98 mmol/L (98-107); Estimated GFR-MDRD 5; Globulin 2.2 g/dL (2.4-3.5); Glucose 95 mg/dL (80-115); Magnesium 3.1 mg/dL (1.6-2.6); Potassium 3.8 mmol/L (3.5-5.1); Protein, Total 4.6 g/dL (6.0-8.3); Sodium 135 mmol/L (136-145)
[2020-01-28] MEDS: Aspirin 325 mg Enteric Coated Tablet PO SCH (08:37)
[2020-01-28] MEDS: tiZANidine HCl 4 MG TAB PO SCH ×2 (08:37→20:52)
[2020-01-28] MEDS: Famotidine 20 MG TAB PO SCH (08:37)
[2020-01-28] MEDS: Calcitriol 0.25 MCG CAP PO SCH (08:37)
[2020-01-28] MEDS: Magnesium Oxide 400 MG TAB PO SCH ×2 (08:37→20:52)
[2020-01-28] MEDS: cloNIDine 0.1 MG TAB PO SCH ×2 (08:37→20:51)
[2020-01-28] MEDS: PARoxetine 20 MG TAB PO SCH (08:38)
[2020-01-28] MEDS: predniSONE 20 MG TAB PO SCH (08:38)
[2020-01-28] MEDS: Saccharomyces boulardii 250 MG CAP PO SCH (08:38)
[2020-01-28] MEDS: Gabapentin 300 MG CAP PO SCH ×2 (08:38→20:52)
[2020-01-28] MEDS: Ferrous Sulfate 325 MG TAB PO SCH ×2 (08:39→20:52)
[2020-01-28] MEDS: hydrALAZINE 25 MG TAB PO SCH ×3 (08:39→20:52)
[2020-01-28] MEDS: Losartan 25 MG TAB PO SCH (08:39)
[2020-01-28] MEDS: Donepezil HCl 5 MG TAB PO SCH (08:39)
[2020-01-28] MEDS: Amlodipine 10 MG TAB PO SCH (08:39)
[2020-01-28] MEDS ORDERED: ALPRAZolam 1 MG TAB PO PRN (12:06)
--- NOTE | 2020-01-28 12:08 | PRG ---
DATE OF SERVICE: 01/28/2020 SUBJECTIVE: Ms. Park is a 64-year-old white female with diagnosis of ESRD, currently on peritoneal dialysis, and recently, was diagnosed to have a diskitis/osteomyelitis - currently on IV vancomycin and cefepime. She was just discharged from the rehab one day prior to admission. When she was brought home, the patient has had frequent falls and the patient's is unable to care for her and do her peritoneal dialysis. She is now admitted for further management. She may be looking toward senior care placement and/or LTAC placement. We are following her up for her maintenance peritoneal dialysis. I did proceed with the peritoneal dialysis regimen yesterday and she tolerated this. She voices no new complaints. She has no chest pain or shortness of breath. OBJECTIVE: VITAL SIGNS: Blood pressure is noted at 140/70, heart rate 70. GENERAL: The patient is awake, alert, supine, comfortable, not in distress. SKIN: Adequate turgor. HEENT: Pinkish, slightly pale conjunctivae. Anicteric sclerae. No neck mass. No carotid bruits. No JVD. CHEST: No deformities. LUNGS: Clear breath sounds. No wheezing. No crackles. HEART: Normal sinus rhythm. No murmurs, no gallops, no rubs. ABDOMEN: Globular, soft, nontender. No masses. Positive for PD catheter. EXTREMITIES: No edema. No deformities. MEDICATIONS: Medications of January 28, 2020, were reviewed. LABORATORY DATA: Laboratories of January 28, 2020; white count 12.1, hemoglobin 11.2. Sodium 135, potassium is 3.8, chloride 98, carbon dioxide 24, BUN 67, creatinine 7.6, AST 20, ALT 16. ASSESSMENT AND PLAN: 1. Diskitis/osteomyelitis - on IV antibiotics. She will need this until the last week of January. 2. End-stage renal disease, stable. We will continue current CCPD regimen, tolerating current peritoneal dialysis regimen. No changes will be made with the PD regimen. Continue 2.5% PD solution alternating with 1.5% PD solution. Agree with current management. Case management consult for a possible LTAC placement. Case discussed at length with the regarding long-term plans. Job ID: [id number]
--- NOTE | 2020-01-28 14:15 | PDOC.HOSPP ---
- Subjective Encounter Date: 01/28/20 Encounter Time: 07:30 Subjective: Patient seen and examined for Gen weakness. No new pain or focal deficits. No other complaints. No overnight events - Objective Vital Signs & Weight: Vital Signs (12 hours) Temp Pulse Resp BP BP Pulse Ox 01/28/20 13:43 71 14 91 L 01/28/20 13:41 98.2 F 76 18 126/81 92 L 01/28/20 10:15 79 18 96 01/28/20 08:39 71 146/66 H 01/28/20 08:37 146/66 H 01/28/20 08:35 98 F 72 20 146/66 H 100 01/28/20 06:41 75 18 97 01/28/20 04:16 97.4 F L 70 20 151/73 H 100 Weight Weight 148 lb 12.992 oz I&O: 01/27/20 01/28/20 01/29/20 06:59 06:59 06:59 Intake Total 240 Output Total 300 0606 Balance -60 -6223 Result Diagrams: 01/28/20 05:24 01/28/20 05:24 Radiology Reviewed by me: Yes (CT thoracic spine - osteo) Hospitalist ROS - Review of Systems Respiratory: denies: cough, dry, shortness of breath, hemoptysis, SOB with excertion, pleuritic pain, sputum, wheezing, other Cardiovascular: denies: chest pain, palpitations, orthopnea, paroxysmal noc. dyspnea, edema, light headedness, other Gastrointestinal: denies: nausea, vomiting, abdominal pain, diarrhea, constipation, melena, hematochezia, other - Medication Medications: Active Medications Generic Name Dose Route Start Last Admin Trade Name Freq PRN Reason Stop Dose Admin Albuterol/Ipratropium 3 ml 01/27/20 22:30 01/28/20 13:43 Duoneb NEB 3 ml [id number] RAGHU Administration Amlodipine Besylate 10 mg 01/28/20 09:00 01/28/20 08:39 Norvasc PO 10 mg DAILY RAGHU Administration Aspirin 325 mg 01/28/20 09:00 01/28/20 08:37 Ecotrin PO 325 mg DAILY RAGHU Administration Atorvastatin Calcium 20 mg 01/27/20 21:00 01/27/20 20:56 Lipitor PO 20 mg HS RAGHU Administration Calcitriol 0.25 mcg 01/28/20 09:00 01/28/20 08:37 Rocaltrol PO 0.25 mcg DAILY RAGHU Administration Cholecalciferol 1,000 units 01/28/20 09:00 01/28/20 08:37 Vitamin D3 PO 1,000 units DAILY RAGHU Administration Clonidine 0.1 mg 01/27/20 21:00 01/28/20 08:37 Catapres PO 0.1 mg BID RAGHU Administration Donepezil HCl 5 mg 01/28/20 09:00 01/28/20 08:39 Aricept PO 5 mg DAILY RAGHU Administration Famotidine 20 mg 01/28/20 09:00 01/28/20 08:37 Pepcid PO 20 mg DAILY RAGHU Administration Ferrous Sulfate 325 mg 01/27/20 21:00 01/28/20 08:39 Feosol PO 325 mg BID RAGHU Administration Gabapentin 300 mg 01/27/20 21:00 01/28/20 08:38 Neurontin PO 300 mg BID RAGHU Administration Hydralazine HCl 25 mg 01/27/20 21:00 01/28/20 08:39 Apresoline PO 25 mg TID RAGHU Administration Cefepime HCl 1 gm/ Sodium 100 mls @ 200 mls/hr 01/27/20 20:00 01/27/20 20:54 Chloride IVPB 100 mls Q2D RAGHU Administration Losartan Potassium 25 mg 01/28/20 09:00 01/28/20 08:39 Cozaar PO 25 mg DAILY RAGHU Administration Magnesium Oxide 400 mg 01/27/20 21:00 01/28/20 08:37 Magnesium Oxide PO 400 mg BID RAGHU Administration Miscellaneous Medication 1 each 01/28/20 05:00 01/28/20 04:09 Lidocaine Patch Removal TOP Not Given 0500 RAGHU Paroxetine HCl 40 mg 01/28/20 09:00 01/28/20 08:38 Paxil PO 40 mg DAILY RAGHU Administration Prednisone 40 mg 01/28/20 08:00 01/28/20 08:38 Prednisone PO 40 mg QAM-WM RAGHU Administration Ropinirole HCl 0.25 mg 01/27/20 21:00 01/27/20 20:55 Requip PO 0.25 mg HS RAGHU Administration Saccharomyces Boulardii 250 mg 01/28/20 09:00 01/28/20 08:38 Florastor PO 250 mg DAILY RAGHU Administration Tizanidine HCl 4 mg 01/27/20 21:00 01/28/20 08:37 Zanaflex PO 4 mg BID RAGHU Administration Trazodone HCl 100 mg 01/27/20 21:00 01/27/20 20:56 Desyrel PO 100 mg HS RAGHU Administration - Exam General Appearance: NAD Neck: supple, no JVD Heart: RRR, no gallops Respiratory: no wheezes, no ronchi Gastrointestinal: non-tender, non-distended, normal bowel sounds Extremities: no cyanosis Hosp A/P - Plan DVT proph w/SCDs 1. Generalized weakness. 2. Fall secondary to #1. 3. Diskitis/osteomyelitis, on vancomycin and cefepime. 4. End-stage renal disease, on peritoneal dialysis. 5. Chronic obstructive pulmonary disease. 6. Vit B12 and Folic acid def. 7. Hyponatremia. 8. Thrombocytopenia. 9. Chronic leukocytosis. PLAN: Cont Vancomycin and cefepime. Replace Vit B12 and Folic acid PD per Nephrology Cont PT/OT Await placement
[2020-01-28] MEDS: Lidocaine 5% Patch TD SCH (15:52)
[2020-01-28] MEDS: Atorvastatin Calcium 20 MG TAB PO SCH (20:51)
[2020-01-28] MEDS: traZODone HCl 50 MG TAB PO SCH (20:52)
[2020-01-28] MEDS: rOPINIRole HCl 0.25 MG TAB PO SCH (20:52)
[2020-01-29] MEDS: Lidocaine Patch Removal TOP SCH (06:30)
[2020-01-29] MEDS: Calcitriol 0.25 MCG CAP PO SCH (08:13)
[2020-01-29] MEDS: tiZANidine HCl 4 MG TAB PO SCH (08:13)
[2020-01-29] MEDS: Magnesium Oxide 400 MG TAB PO SCH (08:13)
[2020-01-29] MEDS: Saccharomyces boulardii 250 MG CAP PO SCH (08:13)
[2020-01-29] MEDS: Famotidine 20 MG TAB PO SCH (08:13)
[2020-01-29] MEDS: PARoxetine 20 MG TAB PO SCH (08:14)
[2020-01-29] MEDS: Aspirin 325 mg Enteric Coated Tablet PO SCH (08:14)
[2020-01-29] MEDS: cloNIDine 0.1 MG TAB PO SCH (08:14)
[2020-01-29] MEDS: Gabapentin 300 MG CAP PO SCH (08:14)
[2020-01-29] MEDS: Losartan 25 MG TAB PO SCH (08:14)
[2020-01-29] MEDS: Amlodipine 10 MG TAB PO SCH (08:14)
[2020-01-29] MEDS: Donepezil HCl 5 MG TAB PO SCH (08:15)
[2020-01-29] MEDS: predniSONE 20 MG TAB PO SCH (08:15)
[2020-01-29] MEDS: Ferrous Sulfate 325 MG TAB PO SCH (08:15)
[2020-01-29] MEDS: hydrALAZINE 25 MG TAB PO SCH ×2 (08:15→16:59)
--- NOTE | 2020-01-29 09:56 | PRG ---
DATE OF SERVICE: 01/29/2020 SUBJECTIVE: Ms. Park is a 64-year-old white female with ESRD and admitted for frequent falls. She is also receiving IV antibiotics for her diskitis/osteomyelitis. She is doing well. No new complaints. She tolerated the peritoneal dialysis last night. We are managing her ESRD. OBJECTIVE: VITAL SIGNS: Blood pressure 166/69, heart rate 68, respiratory rate 16, temperature 97.5, pulse ox 97%. GENERAL: The patient is awake, alert, comfortable, not in distress. SKIN: Adequate turgor. HEENT: Pinkish conjunctivae. Anicteric sclerae. No neck mass. No carotid bruits. No JVD. CHEST: No deformities. LUNGS: Clear breath sounds. No wheezing. No crackles. HEART: Normal sinus rhythm. No murmur. No gallops. No rubs. ABDOMEN: Globular, soft, nontender. No masses. Positive for PD catheter. EXTREMITIES: No edema. No deformities. MEDICATIONS: Medications of January 29, 2020, were reviewed. LABORATORY DATA: Laboratories of January 28, 2020; white count 12.8, hemoglobin 11.2, sodium 135, potassium 3.8, chloride 98, carbon dioxide 24, BUN 67, creatinine 7.6, albumin 2.4, folate 4.1. ASSESSMENT AND PLAN: 1. End-stage renal disease, stable. Continue current continuous cyclic peritoneal dialysis regimen, tolerating peritoneal dialysis. Continue 2.5% alternating with 1.5% PD solution. 2. Diskitis/osteomyelitis. Continuing IV antibiotics. We are awaiting LTAC evaluation for this patient. Job ID: [id number]
[2020-01-29] MEDS: Lidocaine 5% Patch TD SCH (16:56)
[2020-01-29] MEDS ORDERED: rOPINIRole HCl 0.25 MG TAB PO SCH (18:00)
[2020-01-29 18:07] VITALS: BP 147/62; TEMP 98.5
--- NOTE | 2020-01-29 22:06 | DIS ---
DATE OF ADMISSION: 01/27/2020 DATE OF DISCHARGE: 01/29/2020 DISCHARGE DISPOSITION: [facility] in [place]. DISCHARGE MEDICATIONS: Same as admission medications. Folic acid was added. The patient was seen and examined on the day of discharge. Denies any new complaints. No chest pain, shortness of breath, palpitations, fever, or chills reported. BRIEF HOSPITAL COURSE: The patient is a 64-year-old white female with recent hospitalization for diskitis, presented to the emergency room with generalized weakness. Two weeks ago, the patient was discharged to inpatient rehabilitation. Post discharge from the rehab, the patient had an episode of fall at home. She presented to the emergency room and was subsequently admitted. She was monitored on the medical floor. Physical therapy and occupation therapy were resumed. She was restarted on vancomycin and cefepime. She underwent peritoneal dialysis per Nephrology. She appears stable for discharge to long-term acute care for completion of the antibiotics along with rehabilitation. FINAL DIAGNOSES: 1. Generalized weakness, multifactorial. 2. Fall secondary to #1. 3. Diskitis/osteomyelitis, on vancomycin and cefepime for total of 36 days. 4. End-stage renal disease, on peritoneal dialysis. 5. Chronic obstructive pulmonary disease. 6. Vitamin B12 and folic acid deficiency. 7. Leukocytosis, unlikely to be infectious. 8. Thrombocytopenia. 9. Hyponatremia. 10. Metabolic acidosis, resolved. PLAN: Plan was discussed with the patient. She stated understanding. Job ID: [id number]
== END 2020-01-29 19:15 ==
LOC: ERS 08:30 → T4-B 13:43
PROVIDERS: ADMIT Internal Medicine; ATTEND Internal Medicine
DX: R53.1 Weakness (principal); M46.20 Osteomyelitis of vertebra, site unspecified; I13.2 Hypertensive heart and chronic kidney disease with heart failure and with stage 5 chronic kidney disease, or end stage renal disease; N18.6 End stage renal disease; I50.9 Heart failure, unspecified; E78.5 Hyperlipidemia, unspecified; J44.9 Chronic obstructive pulmonary disease, unspecified; I25.10 Atherosclerotic heart disease of native coronary artery without angina pectoris; F17.210 Nicotine dependence, cigarettes, uncomplicated; D72.829 Elevated white blood cell count, unspecified; E87.1 Hypo-osmolality and hyponatremia; D69.6 Thrombocytopenia, unspecified; M48.061 Spinal stenosis, lumbar region without neurogenic claudication; E78.00 Pure hypercholesterolemia, unspecified; I25.2 Old myocardial infarction; F03.90 Unspecified dementia, unspecified severity, without behavioral disturbance, psychotic disturbance, mood disturbance, and anxiety; E53.8 Deficiency of other specified B group vitamins; E87.2 Acidosis; Z79.2 Long term (current) use of antibiotics; Z79.52 Long term (current) use of systemic steroids; Z79.899 Other long term (current) drug therapy; Z88.8 Allergy status to other drugs, medicaments and biological substances; Z91.040 Latex allergy status; Z94.0 Kidney transplant status; Z98.1 Arthrodesis status; Z99.2 Dependence on renal dialysis; W06.XXXA Fall from bed, initial encounter
CPT/HCPCS: 72128; 72131; 80053 ×2; 82607; 82746; 83735; 85025 ×2; 94640 ×3; 96365; 96375 ×2; 97139 ×3; 97530; 99285; G0378 ×4; 90945; 96374; G0257; J0692; J2270; J2405; J3490; J7512; J7620